=== PATIENT | female | born 1965 | race Caucasian/White ===

== ENCOUNTER → 2019-10-11 15:39 | Outpatient (CLI) | payer OTHER, SELFPAY ==
--- NOTE | 2019-10-11 15:48 | RAD_ITS ---
STUDY: X-RAY - RIGHT HAND, ATTENTION FIRST FINGER REASON FOR EXAM: Female, 53 years old. bilateral thumb pain, right more than left TECHNIQUE: 3 view(s) of the finger were obtained. COMPARISON: None. FINDINGS: Normal metacarpal head. Normal metacarpophalangeal joint. Normal proximal phalanx. Normal middle phalanx. Normal distal phalanx. Normal proximal interphalangeal joint. Normal distal interphalangeal joint. RAD/Finger(s) Min 2 Views IMPRESSION: Normal x-ray examination of the finger. Electronically Signed: Priyanka Jones MD at 16:17 EST , Service support ,
--- NOTE | 2019-10-11 15:48 | RAD_ITS ---
STUDY: X-RAY - LEFT HAND, ATTENTION FIRST FINGER REASON FOR EXAM: Female, 53 years old. bilateral thumb pain, right more than left TECHNIQUE: 3 view(s) of the finger were obtained. COMPARISON: None. FINDINGS: Normal metacarpal head. Normal metacarpophalangeal joint. Normal proximal phalanx. Normal middle phalanx. Normal distal phalanx. Normal proximal interphalangeal joint. Normal distal interphalangeal joint. RAD/Finger(s) Min 2 Views IMPRESSION: Normal x-ray examination of the finger. Electronically Signed: Priyanka Jones MD at 16:16 EST , Service support ,
== END ==
PROVIDERS: Family Provider Family Medicine; PCP Family Medicine; Referring Provider Family Medicine; Visit Provider Family Medicine
DX: M79.644 Pain in right finger(s) (principal); M79.645 Pain in left finger(s)
CPT/HCPCS: 73140

== ENCOUNTER → 2019-11-14 11:10 | Outpatient (CLI) | payer OTHER, SELFPAY ==
[2019-11-14 12:56] LABS: Erythrocyte Sedimentation Rate 3 mm/hr (0-30)
[2019-11-14 14:04] LABS: CRP < 2.90 mg/L (0.0-3.0); Rheumatoid Factor < 10.0 IU/mL (<15)
[2019-11-15 16:53] LABS: ANTINUCLEAR ANTIBODIES DIRECT Negative (Negative)
== END ==
PROVIDERS: PCP Family Medicine; Visit Provider Family Medicine
DX: M13.0 Polyarthritis, unspecified (principal)
CPT/HCPCS: 36415; 85652; 86038; 86140; 86431

== ENCOUNTER → 2019-11-17 13:27 | Outpatient (CLI) | payer OTHER, SELFPAY ==
--- NOTE | 2019-11-17 13:31 | RAD_ITS ---
STUDY: X-RAY - LEFT KNEE REASON FOR EXAM: Female, 54 years old. Bilateral knee pain TECHNIQUE: 4 view(s) of the knee. COMPARISON: None. FINDINGS: Normal visualized distal femur. Normal visualized proximal tibia and fibula. Normal proximal tibiofibular articulation. There is no demonstrated fracture. Normal medial femorotibial compartment. Normal lateral femorotibial compartment. Normal patellofemoral articulation. There is no demonstrated joint effusion. The soft tissue structures are unremarkable. RAD/Knee 4 or More Views IMPRESSION: Normal x-ray examination of the knee. Electronically Signed: Kaushik Llanes MD at 23:50 EST , Service support ,
--- NOTE | 2019-11-17 13:31 | RAD_ITS ---
STUDY: X-RAY - RIGHT KNEE REASON FOR EXAM: Female, 54 years old. Bilateral knee pain TECHNIQUE: 4 view(s) of the knee. COMPARISON: None. FINDINGS: Normal visualized distal femur. Normal visualized proximal tibia and fibula. Normal proximal tibiofibular articulation. There is mild degenerative arthrosis of the medial femorotibial compartment. Normal lateral femorotibial compartment. There is mild degenerative arthrosis of the patellofemoral articulation. There is slight lateral subluxation on the sunrise view. The soft tissue structures are unremarkable. RAD/Knee 4 or More Views IMPRESSION: Minimal degenerative change. No visualized fracture. Electronically Signed: Rosina Pérez MD at 18:06 EST Tel , Service support ,
== END ==
PROVIDERS: PCP Family Medicine; Referring Provider Family Medicine; Visit Provider Family Medicine
DX: M25.561 Pain in right knee (principal); M25.562 Pain in left knee
CPT/HCPCS: 73564

== ENCOUNTER → 2020-01-09 07:53 | Outpatient (CLI) | payer OTHER, SELFPAY ==
--- NOTE | 2020-01-09 07:54 | BI_ITS ---
MAMMOGRAPHY - BILATERAL SCREENING REASON FOR EXAM: Female, 54 years old. Routine annual screening examination. PERTINENT HISTORY: Non-contributory. TECHNIQUE: Digital bilateral breast andreas (3D mammographic acquisition) in the CC and MLO projections. 2-D mediolateral oblique (MLO) and craniocaudad (CC) views of both breasts were obtained. CAD: Full Field Digital Mammography with Computer Added Detection was performed. COMPARISON: Comparison is made with prior outside examination dated November 16, 2019. FINDINGS: Breast Composition: The breasts are almost entirely fatty. There are no dominant masses or suspicious calcifications. No other significant abnormalities are identified. There has been no significant change since the prior study. BI/SCREEN MAMM (CAD) W/ANDREAS BILAT IMPRESSION: Stable bilateral screening mammogram. Yearly follow-up mammogram recommended. (A) ASSESSMENT CATEGORY: BIRADS Category 1: Negative. A letter regarding these results will be sent to the patient by the facility within 30 days. Approximately 10% of breast cancers are not detected by mammography. A normal mammogram should not delay biopsy of a clinically suspicious abnormality. [id number] Electronically Signed: James Reynoso, at 14:26 EDT , Service support ,
== END ==
PROVIDERS: PCP Family Medicine; Referring Provider Nurse Practitioner Women's Health; Visit Provider Nurse Practitioner Women's Health
DX: Z12.31 Encounter for screening mammogram for malignant neoplasm of breast (principal)
CPT/HCPCS: 77063; 77067

== ENCOUNTER 2020-06-25 08:30 | Outpatient (RCR) | payer OTHER, SELFPAY ==
--- NOTE | 2020-06-25 08:21 | HP.PTEVAL_ITS ---
Patient's Visit Information MORENO VANESSA is a 54 year old F referred to Physical Therapy by Dr. Rory Larson MD with a diagnosis of R shoulder pain. Date of Evaluation: 02/16/20 Physical Therapist: Juan Leos DPT - Visit Plan Frequency: 2x /Week Duration: 4 Weeks Plan: Start with AAROM with cane, and scapular/RTC strengthening exericses. PT. desires to complete on own currently. I gave her exercises to complete. HEP with handout given today. Pt. to follow up in 2-3 weeks if needed. - Subjective Pt. is here today for her initial evaluation with R shoulder pain. Pt. reports having increaed pain for the last 3-4 years, but worse over the past few months. No mech of injury. Pt. denies N/T. 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 Increased pain with: reaching, lifting, reaching behind her back, lifting, and sleeping on her R side. Pt. has not had an xray or MRI at this point in time. Pt. is hopeful to reduce her pain in order to get back to all work and recreational activities without limitations. - Pain R shoulder Pain Intensity (Out of 10): 0 Pain Intensity Range: 0, 4 - Objective POSTURE: Pt. has FH posture. [place] rounded shoulders. PALPATION: Pt. has tenderness along subacromial space and slightly at deltoid. NEURO: Pt. has normal sensation and DTR of BUEs. ROM: L shoulder; PROM: full without mild increase NW with overhead motions, end range flexion and abducton. AROM: pt. has incrased pain with last 25% of flexion and abcution. Functional ER C2 increase NW, functional IR L4 increase NW. Full cervical ROM no pain. MMT: Pt. has 4/5 strength throughout R UE, but did have increased pain with abd/flexion, and ER. No pain with IR motion. 5/5 cervical iso without increase in symptoms. - Special Tests R Shoulder Lift Off Test - Subscapular Tear: Negative R Shoulder Drop Sign - IS Test: Negative R Shoulder Empty Can - SS: Positive R Shoulder Belly Press - SupScap: Negative R Shoulder Neer - Impingement: Positive R Shoulder Swann Alexsander - Impingement: Positive R Shoulder Biceps Load Test - Labrum: Negative R Shoulder Speeds Test - Labrum/Biceps: Positive - Goals Goal 1:: LTG: Pt. to be I with HEP. Goal Time Frame: 4-6 Weeks Goal 2:: STG: Pt. to sleep throughout the night without increase in symptoms. Goal Time Frame: 2-4 Weeks Goal 3:: STG: Pt. to be educated in proper HEP for RTC and shoulder stability exercises. Goal Time Frame: 2-4 Weeks Goal 4:: LTG: Pt. to complete all ADLs and overhead activities without increase in R shoulder pain. Goal Time Frame: 4-6 Weeks - Rehabilitation Potential Physical Therapy Diagnosis: PT. has signs and symptoms consistent with R shoulder pain. Pt. has increaed pain with active and strength testing of RTC this date. Pt. also has pain at night and pain with many ADLs and functional use of R UE. Pt. would benefit from PT to work on ROM and strengthening in order to reduce stress applied to RTC with all functional/ADL activities. Rehabilitation Potential: Good - Anticipated Interventions Patient/Client Instruction: Educate patient on: Condition, Plan of Care, Risk Factors, Benefits of Fitness Program For the Purpose of:: To facilitate caregiver knowledge, To improve self ma nagement, To prevent re-injury, To improve ability to perform tasks related to life management, To improve tolerance to ADL's Therapeutic Exercise to Include: Strength training, Power training, Postural training, Flexibilty training, via Neurocom Balance Mas, Active ROM, [place] Exercises, Scapular Strength/Stabilization For the Purpose of:: To decrease pain, To decrease swelling/inflammation, To increase ROM, To improve nutrient delivery to tissue, To increase oxygenation perfusion, To improve muscle performance and motor function, To improve ability of physical actions for home/community/work/leisure, To decrease soft tissue restriction, To increase flexibility/ROM IF ES: Yes Cryotherapy (ice pack, ice massage): Yes Ultrasound (thermal/non thermal): Yes For the Purpose of:: To decrease pain, To decrease swelling/inflammation, To increase ROM, To improve nutrient delivery to tissue, To increase oxygenation perfusion, To improve muscle performance and motor function Thank you for the opportunity to evaluate your patient. For Medicare and Medicare HMO plans, please review the plan of care and approve it. It will need to be FAXED BACK to us at [phone] for Medicare purposes. For Medicare only, by signing this I certify the plan of care. Please let me know if there are questions or concerns regarding this plan of care. Physician Signature: Date :
--- NOTE | 2020-06-25 11:29 | HP.PTREVAL ---
Dr. Rory Larson MD, It has been my pleasure to treat MORENO VANESSA over the last 2 visits for R shoulder pain. Please see the progress note below for an update on the physical therapy plan of care! Subjective: Pt. reports overall doing much better since last time. Pt. reports being consistent with all of her strengthening exercises. Pt. is now mostly worried about her end range flexion and external rotation. Objective/Function: Pt. tolerated all PT without adverse reaction. Pt. had improved ROM by end of PT. Pt. started with 170deg of shoulder flexion, and 70deg of R shoulder ER at 90deg of abd. Post PT pt. had 85deg of shoulder ER at 90deg with decreased symptoms. Pt. had good strength throughout without increase in symptoms 5/5 throughout, no pain. Pt. has made good progress. Pt. is still limited with her end rnage of motions, but I gave her some stretches to work on. Pt. is to follow up with PT if needed, but otherwise continue with stretching progressing as tolerated. Plan Plan: Pt. to add in stretching to HEP this date. Pt. to complete on own for 2-3 weeks and follow up with PT if needed. Pt. consents. Goals Goal 1:: LTG: Pt. to be I with HEP. Goal Time Frame: 4-6 Weeks Goal Progress: Goal Met Goal 2:: STG: Pt. to sleep throughout the night without increase in symptoms. Goal Time Frame: 2-4 Weeks Goal Progress: Goal Met Goal 3:: STG: Pt. to be educated in proper HEP for RTC and shoulder stability exercises. Goal Time Frame: 2-4 Weeks Goal Progress: Goal Met Goal 4:: LTG: Pt. to complete all ADLs and overhead activities without increase in R shoulder pain. Goal Time Frame: 4-6 Weeks Goal Progress: Progressing Anticipated Interventions Patient/Client Instruction: Educate patient on: Condition, Plan of Care, Risk Factors, Benefits of Fitness Program For the Purpose of:: To facilitate caregiver knowledge, To improve self management, To prevent re-injury, To improve ability to perform tasks related to life management, To improve tolerance to ADL's Therapeutic Exercise to Include: Strength training, Power training, Postural training, Flexibilty training, via Neurocom Balance Mas, Active ROM, [place] Exercises, Scapular Strength/Stabilization For the Purpose of:: To decrease pain, To decrease swelling/inflammation, To increase ROM, To improve nutrient delivery to tissue, To increase oxygenation perfusion, To improve muscle performance and motor function, To improve ability of physical actions for home/community/work/leisure, To decrease soft tissue restriction, To increase flexibility/ROM IF ES: Yes Cryotherapy (ice pack, ice massage): Yes Ultrasound (thermal/non thermal): Yes For the Purpose of:: To decrease pain, To decrease swelling/inflammation, To increase ROM, To improve nutrient delivery to tissue, To increase oxygenation perfusion, To improve muscle performance and motor function Please do not hesitate to contact me at [phone] by phone or if you have questions or concerns regarding this new plan of care! Sincerely, TREE MoserT
== END 2020-06-25 19:00 | disposition home or self-care (01) ==
LOC: PT 08:30
PROVIDERS: PCP Family Medicine; Referring Provider Family Medicine; Visit Provider Family Medicine
DX: M25.511 Pain in right shoulder (principal)
CPT/HCPCS: 97110; 97161; 97164

== ENCOUNTER → 2020-10-22 11:39 | Outpatient (CLI) | payer OTHER, SELFPAY ==
[2020-08-26 14:10] VITALS: BMI 28.0
--- NOTE | 2020-10-22 11:42 | RAD_ITS ---
STUDY: X-RAY - LUMBAR SPINE REASON FOR EXAM: Female, 55 years old. DDD. TECHNIQUE: 5 view(s) of the lumbar spine were obtained. COMPARISON: Thoracic spine, 10/22/2020. FINDINGS: There is reversal of the normal lumbar lordosis. There is a dextroscoliosis with convexity at L3. There is a normal alignment of the vertebrae. There is multilevel endplate spondylosis of the lumbar vertebrae. Normal disc space heights. There is no evidence of acute fracture or loss of vertebral axial height. There is no demonstrated spondylolysis of the pars interarticulares. The soft tissue structures are unremarkable. RAD/L/S Spine Min 4 Views IMPRESSION: Scoliosis and degenerative changes of the lumbar spine. Electronically Signed: Andrew Gao DO at 20:47 EST Tel [phone], Service support ,
--- NOTE | 2020-10-22 11:42 | RAD_ITS ---
STUDY: X-RAY - THORACIC SPINE REASON FOR EXAM: Female, 55 years old. DDD. TECHNIQUE: 2 view(s) of the thoracic spine were obtained. COMPARISON: None. FINDINGS: Normal kyphosis of the thoracic spine. There is no substantial scoliosis. Normal thoracic vertebrae and endplates. Normal disc space heights. There is no evidence of acute fracture or loss of vertebral axial height. The soft tissue structures are unremarkable. RAD/Thoracic Spine 2 Views IMPRESSION: Normal x-ray examination of the thoracic spine. Electronically Signed: Andrew Gao DO at 20:46 EST Tel [phone], Service support ,
== END ==
PROVIDERS: PCP Family Medicine; Referring Provider Family Medicine; Visit Provider Family Medicine
DX: F32.0 Major depressive disorder, single episode, mild (principal)
CPT/HCPCS: 72070; 72110

== ENCOUNTER 2021-10-07 12:06 | Outpatient (CLI) | payer OTHER, SELFPAY ==
--- NOTE | 2021-10-07 12:11 | RAD_ITS ---
STUDY: SCOLIOSIS SURVEY REASON FOR EXAM: Female, 55 years old. Low back pain. Scoliosis. TECHNIQUE: Frontal and lateral views of the thoracolumbar spine were obtained on 2 images. COMPARISON: 10/22/2020. FINDINGS: Normal vertebral morphology and preservation of disc space. 9 degree levoscoliosis of the lower thoracic spine. 26 degree dextroscoliosis of the mid lumbar spine with angulation at L2-L4. RAD/Scoliosis 2 or 3 views IMPRESSION: Thoracolumbar scoliosis as described. Electronically Signed: Christian Resendiz MD at 9:17 EST , Service support ,
[2021-10-07 15:12] LABS: Vitamin D,25 Hydroxy 43.4 ng/mL
[2021-10-07 15:29] LABS: ALB/GLOB Ratio 1.2 RATIO (0.9-2.4); AST(SGOT) 11 U/L (15-37); Alanine Aminotransfer ALT/SGPT 28 U/L (13-56); Alkaline Phosphatase 82 U/L (45-117); Anion Gap 7 (5-15); BUN 15 mg/dL (7-18); BUN/Creat Ratio 18.5 RATIO (10-20); Calcium,Total 8.7 mg/dL (8.5-10.1); Chloride 103 mmol/L (98-107); Creatinine, Serum 0.81 mg/dL (0.55-1.02); EST Glomerular Filtration Rate 77 mL/min (>60); Est Glom Filt Rate - Afr Amer 93 mL/min (>60); Globulin 3.2 g/dL (2.2-4.2); Glucose 74 mg/dL (74-106); Potassium 3.7 mmol/L (3.5-5.1); Protein, Total 7.2 g/dL (6.4-8.2); Sodium Level 139 mmol/L (136-145)
[2021-10-07 18:59] LABS: Amphetamine Urine VISTA NEGATIVE (<1000 ng/mL); Barbiturate Urine VISTA NEGATIVE (< 200 ng/mL); Benzodiazepine Urine VISTA NEGATIVE (< 200 ng/mL); Cocaine Urine VISTA NEGATIVE (< 300 ng/mL); Ecstacy Urine VISTA NEGATIVE (< 500 ng/mL); Methadone Urine VISTA NEGATIVE (< 300 ng/mL); PCP Urine VISTA NEGATIVE (< 25 ng/mL); THC Urine VISTA NEGATIVE (< 50 ng/mL); Vista UDS pH Range 6
== END 2021-10-07 23:59 | disposition short-term general hospital (02) ==
PROVIDERS: PCP Family Medicine; Referring Provider Family Medicine; Visit Provider Family Medicine
DX: M41.9 Scoliosis, unspecified (principal)
CPT/HCPCS: 72082; 80053; 80307; 82306; 84443

== ENCOUNTER → 2022-03-19 | Outpatient (CLI) | payer OTHER, SELFPAY ==
[2022-03-19 10:10] LABS: Vitamin D,25 Hydroxy 41.7 ng/mL
[2022-03-19 10:25] LABS: ALB/GLOB Ratio 1.1 RATIO (0.9-2.4); AST(SGOT) 15 U/L (15-37); Alanine Aminotransfer ALT/SGPT 23 U/L (13-56); Albumin, Serum 3.7 g/dL (3.2-5.0); Alkaline Phosphatase 63 U/L (45-117); Anion Gap 7 (5-15); BUN 15 mg/dL (7-18); BUN/Creat Ratio 17.1 RATIO (10-20); Calcium,Total 8.8 mg/dL (8.5-10.1); Chloride 106 mmol/L (98-107); Creatinine, Serum 0.88 mg/dL (0.55-1.02); EST Glomerular Filtration Rate 71 mL/min (>60); Est Glom Filt Rate - Afr Amer 85 mL/min (>60); Globulin 3.3 g/dL (2.2-4.2); Glucose 92 mg/dL (74-106); Sodium Level 139 mmol/L (136-145)
[2022-03-19 10:26] LABS: Cholesterol 170 mg/dL (200); High Density Lipoprotein 67 mg/dL; Thyroid Stim Hormone (TSH) 1.32 uIU/mL (0.358-3.74); Triglycerides 156 mg/dL; Very Low Density Lipoprotein 31 mg/dL (5-40)
== END | disposition home or self-care (01) ==
LOC: MTLAB 08:30
PROVIDERS: Obstetrics & Gynecology; PCP Family Medicine; Referring Provider Family Medicine; Visit Provider Family Medicine
DX: E55.9 Vitamin D deficiency, unspecified (principal); Z13.220 Encounter for screening for lipoid disorders; Z13.29 Encounter for screening for other suspected endocrine disorder
CPT/HCPCS: 36415; 80053; 80061; 82306; 84443

== ENCOUNTER → 2022-06-04 | Outpatient (CLI) | payer OTHER, SELFPAY ==
--- NOTE | 2022-06-04 16:04 | BI_ITS ---
MAMMOGRAPHY - BILATERAL SCREENING REASON FOR EXAM: Female, 56 years old. Routine annual screening examination. PERTINENT HISTORY: Non-contributory. TECHNIQUE: Digital bilateral breast andreas (3D mammographic acquisition) in the CC and MLO projections. 2-D mediolateral oblique (MLO) and craniocaudad (CC) views of both breasts were obtained. CAD: Full Field Digital Mammography with Computer Added Detection was performed. COMPARISON: Comparison is made with prior study dated 01/09/2020. FINDINGS: Breast Composition: The breasts are almost entirely fatty. There are no dominant masses or suspicious calcifications. Stable benign-appearing bilateral axillary lymph nodes. No other significant abnormalities are identified. There has been no significant change since the prior study. BI/SCRN MAMM (CAD)W/ANDREAS BILAT IMPRESSION: Stable bilateral screening mammogram. Yearly follow-up mammogram recommended. (A) ASSESSMENT CATEGORY: BIRADS Category 2: Benign. A letter regarding these results will be sent to the patient by the facility within 30 days. Approximately 10% of breast cancers are not detected by mammography. A normal mammogram should not delay biopsy of a clinically suspicious abnormality. [id number] Electronically Signed: James Reynoso MD at 8:25 EDT ,
== END | disposition home or self-care (01) ==
LOC: OPBI 16:04
PROVIDERS: PCP Family Medicine; Visit Provider Obstetrics & Gynecology
DX: Z12.31 Encounter for screening mammogram for malignant neoplasm of breast (principal)
CPT/HCPCS: 77063; 77067

== ENCOUNTER → 2022-06-30 | Outpatient (CLI) | payer OTHER, SELFPAY ==
--- NOTE | 2022-06-30 16:16 | MRI_ITS ---
STUDY: MRI LUMBAR SPINE WITHOUT CONTRAST REASON FOR EXAM: Female, 56 years old. Worsening lower back pain, bilateral sciatica, degenerative scoliosis TECHNIQUE: Standardized fat and water weighted pulse sequences were obtained in the sagittal and axial planes. COMPARISON: None FINDINGS: T12-L1: Mild disc bulge with no spinal canal or neural foraminal stenosis. There is straightening of the normal lumbar lordosis. Slight retrolisthesis of L2 on L3 and L3 on L4. Dextroscoliosis centered on L3-4. 8 mm leftward listhesis of L2 on L3. 8mm dextro listhesis of L4 on L5 Normal conus medullaris that terminates at the level of T12-L1. L1-2: Schmorl''s nodes. Mild disc bulge. No spinal canal or neural foraminal stenosis. L2-3: Endplate edema. Disc bulge. Normal bilateral facet joints. Mild right neural foraminal stenosis. No significant spinal canal stenosis. L3-4: Endplate edema. Disc height loss. Mild leftward uncovertebral hypertrophy, left facet arthrosis, and left neural foraminal stenosis. No spinal canal stenosis. L4-5: Normal endplates. Disc bulge. Mild facet arthrosis. No spinal canal or neural foraminal stenosis. L5-S1: Mixed endplate change. Disc height loss and uncovertebral hypertrophy. Normal bilateral facet joints. Normal central canal and bilateral lateral recesses. Normal bilateral intervertebral neural foramina. Normal visualized sacral ala. There is mild paraspinal muscular atrophy. MRI/Spine Lumbar (Routine) IMPRESSION: Degenerative change detailed above with mild multilevel neural foraminal stenosis. No spinal canal stenosis. Dextroscoliosis detailed above. Electronically Signed: Nasir Duran MD at 6:26 EDT ,
== END | disposition home or self-care (01) ==
LOC: MRI 16:15
PROVIDERS: PCP Family Medicine; Referring Provider Orthopaedic Surgery; Visit Provider Orthopaedic Surgery
DX: M54.16 Radiculopathy, lumbar region (principal)
CPT/HCPCS: 72148

== ENCOUNTER → 2022-07-16 | Outpatient (CLI) | payer OTHER, SELFPAY ==
[2022-07-16 18:04] LABS: ALB/GLOB Ratio 1.2 RATIO (0.9-2.4); AST(SGOT) 8 U/L (15-37); Alanine Aminotransfer ALT/SGPT 18 U/L (13-56); Alkaline Phosphatase 72 U/L (45-117); Anion Gap 4 (5-15); BUN 13 mg/dL (7-18); BUN/Creat Ratio 14.7 RATIO (10-20); Calcium,Total 9.5 mg/dL (8.5-10.1); Chloride 108 mmol/L (98-107); Creatinine, Serum 0.89 mg/dL (0.55-1.02); EST Glomerular Filtration Rate 69 mL/min (>60); Est Glom Filt Rate - Afr Amer 84 mL/min (>60); Globulin 3.2 g/dL (2.2-4.2); Glucose 91 mg/dL (74-106); Protein, Total 7.2 g/dL (6.4-8.2); Sodium Level 141 mmol/L (136-145)
[2022-07-16 18:28] LABS: Vitamin D,25 Hydroxy 52.3 ng/mL
== END | disposition home or self-care (01) ==
LOC: MFPLAB 16:02
PROVIDERS: PCP Family Medicine; Referring Provider Family Medicine; Visit Provider Family Medicine
DX: E55.9 Vitamin D deficiency, unspecified (principal)
CPT/HCPCS: 36415; 80053; 82306

== ENCOUNTER → 2022-09-10 | Outpatient (CLI) | payer OTHER, SELFPAY ==
[2022-09-10 15:25] LABS: Protein, Urine (Random) < 6.0 mg/dL (<11.9)
[2022-09-10 15:36] LABS: Vitamin B12 453 pg/mL (211-911)
[2022-09-10 15:39] LABS: Hemoglobin A1c 5.6 % (3.8-5.6)
[2022-09-10 16:02] LABS: ALB/GLOB Ratio 1.4 RATIO (0.9-2.4); AST(SGOT) 7 U/L (15-37); Alanine Aminotransfer ALT/SGPT 20 U/L (13-56); Albumin, Serum 3.8 g/dL (3.2-5.0); Alkaline Phosphatase 73 U/L (45-117); Anion Gap 7 (5-15); BUN 15 mg/dL (7-18); BUN/Creat Ratio 16.7 RATIO (10-20); CRP < 2.90 mg/L (0.0-3.0); Calcium,Total 9.2 mg/dL (8.5-10.1); Chloride 104 mmol/L (98-107); EST Glomerular Filtration Rate 68 mL/min (>60); Est Glom Filt Rate - Afr Amer 83 mL/min (>60); Globulin 2.7 g/dL (2.2-4.2); Glucose 96 mg/dL (74-106); Protein, Total 6.5 g/dL (6.4-8.2); Sodium Level 140 mmol/L (136-145)
[2022-09-10 16:07] LABS: Erythrocyte Sedimentation Rate < 1 mm/hr (0-30)
[2022-09-16 04:07] LABS: Albumin 3.9 g/dL (2.9-4.4); Alpha-1-Globulins 0.2 g/dL (0.0-0.4); Alpha-2-Globulins 0.6 g/dL (0.4-1.0); Gamma Globulin 0.8 g/dL (0.4-1.8); Immunoglobulin A 94 mg/dL (87-352); Immunoglobulin G 775 mg/dL (586-1602); Immunoglobulin M 66 mg/dL (26-217); PROEL- TOTAL PROTEIN 6.4 g/dL (6.0-8.5); PROELU- Albumin, Urine 17.6 % (.); PROELU- Alpha-1-Globulin,Ur 7.8 % (.); PROELU- Alpha-2-Globulin,Ur 17.3 % (.); PROELU- Beta Globulin, Ur 47.9 % (.); PROELU- Gamma Globulin, Ur 9.3 % (.)
[2022-09-16 11:20] LABS: Arsenic 7245 3 ug/L (0-9); Lead, Blood < 1.0 ug/dL (0.0-3.4); Mercury, Blood 85324 < 1.0 ug/L (0.0-14.9); VITAMIN B6 16.7 ug/L (3.4-65.2); Vitamin B1, Thiamine 238.4 nmol/L (66.5-200.0)
== END | disposition home or self-care (01) ==
LOC: MTLAB 11:47
PROVIDERS: PCP Family Medicine; Referring Provider Psychiatry & Neurology Neurology; Visit Provider Psychiatry & Neurology Neurology
DX: G62.9 Polyneuropathy, unspecified (principal)
CPT/HCPCS: 36415; 80053; 82175; 82607; 82784; 83036; 83655; 83825; 84156; 84165; 84166; 84207; 84425; 85652; 86140; 86334

== ENCOUNTER → 2022-09-24 | Outpatient (CLI) | payer OTHER, SELFPAY ==
[2022-09-24 11:48] LABS: Lyme Ab Screen Interpretation REF LAB
[2022-09-24 15:17] LABS: Absolute Lymphocyte Count 0.95 X10^3/uL (0.83-4.51); Absolute Neutrophil Count 4.3 X10^3/uL (2.0-7.7); Basophil# 0.05 X10^3/uL; Basophil% 0.8 % (0-1); Eosinophil# 0.34 X10^3/uL; Eosinophils% 5.7 % (0-5); Hematocrit 40.9 % (37-47); Hemoglobin 13.3 g/dL (12.0-15.0); Lymphocyte # 0.95 X10^3/ul (0.83-4.51); Mean Corp Hgb Conc 32.5 g/dL (32-36); Mean Corpuscular Hgb 31.1 pg (27.0-32.0); Mean Corpuscular Volume 95.8 fL (81-99); Mean Platelet Vol. 9.8 fl (6.2-12.0); Monocyte# 0.29 X10^3/uL; Monocyte% 4.9 % (0-10); NRBC Flagged by Analyzer 0 % (0-5); Neutrophil # 4.27 X10^3/uL (2.7-7.7); Neutrophil % 72.3 % (47-70); Platelet Count 247 K/mm3 (150-450); RBC Distribution Width CV 12.2 % (11.6-14.6); RBC Distribution Width SD 42.5 fl (35.1-43.9); Red Blood Count 4.27 M/mm3 (4.2-5.4); White Blood Count 5.9 K/mm3 (4.4-11.0)
[2022-09-24 16:24] LABS: Erythrocyte Sedimentation Rate 5 mm/hr (0-30)
[2022-09-26 19:36] LABS: Lyme Scn Total Ab w/Rflx Negative (Negative)
[2022-09-28 16:08] LABS: Anti-Centromere B Ab <0.2 AI (0.0-0.9); Anti-Chromatin <0.2 AI (0.0-0.9); Anti-Jo <0.2 AI (0.0-0.9); Anti-Scleroderma-70 AB <0.2 AI (0.0-0.9); RNP Ab <0.2 AI (0.0-0.9); SJOGREN'S Anti-SS-A test < 0.2 AI (0.0-0.9); SJOGREN'S Anti-SS-B test < 0.2 AI (0.0-0.9); Smith Ab <0.2 AI (0.0-0.9)
[2022-09-29 11:02] LABS: Anti-dsDNA Ab 4 IU/mL (0-9)
== END | disposition home or self-care (01) ==
LOC: BIMLAB 11:46
PROVIDERS: PCP Internal Medicine; Referring Provider Internal Medicine; Visit Provider Internal Medicine
DX: G62.9 Polyneuropathy, unspecified (principal)
CPT/HCPCS: 36415; 85025; 85652; 86225; 86235; 86618

== ENCOUNTER → 2022-10-23 | Outpatient (CLI) | payer OTHER, SELFPAY ==
--- NOTE | 2022-10-23 08:15 | EKG12_ITS ---
Test Reason : MEDICATION Blood Pressure : / mmHG Vent. Rate : 093 BPM Atrial Rate : 093 BPM P-R Int : 128 ms QRS Dur : 076 ms QT Int : 344 ms P-R-T Axes : 011 048 043 degrees QTc Int : 427 ms Normal sinus rhythm Normal ECG Confirmed by CHAVA ROJO, SUMEET ([id number]), production editor DANA LOBO ([id number]) on 10/26/2022 10:40:44 AM Referred By: FRIEDA Confirmed By:SUMEET LARSEN MD
== END | disposition home or self-care (01) ==
LOC: PSN 08:22
PROVIDERS: PCP Internal Medicine; Visit Provider Internal Medicine
DX: Z51.81 Encounter for therapeutic drug level monitoring (principal); Z79.899 Other long term (current) drug therapy
CPT/HCPCS: 93005

== ENCOUNTER → 2023-03-23 | Outpatient (CLI) | payer OTHER, SELFPAY ==
--- NOTE | 2023-03-23 08:55 | US_ITS ---
EXAM: Diagnostic bilateral breast mammogram and diagnostic left breast ultrasound REASON FOR EXAM: Female, 57 years old. Left breast lump felt by doctor 2 weeks prior at the 10:00 position. No palpable lump is felt today. PERTINENT HISTORY: Non-contributory. TECHNIQUE: Digital bilateral breast ariana (3D mammographic acquisition) in the CC and MLO projections. 2-D mediolateral oblique (MLO) and craniocaudad (CC) views of both breasts were obtained. CAD: Full Field Digital Mammography with Computer Added Detection was performed. Real-time garcia scale and color sonographic images were obtained of the left upper inner breast in the clinical area of concern COMPARISON: Screening mammogram from 06/04/2022, 01/09/2020. FINDINGS: Mammogram findings: Breast Composition: There are scattered areas of fibroglandular density. There are no dominant masses or suspicious calcifications. No other significant abnormalities are identified. Ultrasound was obtained of the left breast for palpable finding. Ultrasound findings: The left breast upper inner breast was assessed in the clinical area of concern from the 9:00 to 12:00 positions. No suspicious masses or abnormal fluid collections. US/Breast Limited Unilateral IMPRESSION: Negative diagnostic mammogram. No suspicious masses or abnormal fluid collections on ultrasound in the clinical area of concern. ASSESSMENT CATEGORY: BIRADS Category 2: Benign. A letter regarding these results will be sent to the patient by the facility within 30 days. Recommendation: Return to annual screening mammogram. If clinical concerns for enlarging mass or nipple discharge on physical exam, repeat diagnostic ultrasound and mammogram is recommended. Approximately 10% of breast cancers are not detected by mammography. A normal mammogram should not delay biopsy of a clinically suspicious abnormality. Electronically Signed: Sumeet Maza DO at 10:57 EDT ,
== END | disposition home or self-care (01) ==
PROVIDERS: PCP Internal Medicine; Referring Provider Obstetrics & Gynecology; Visit Provider Obstetrics & Gynecology
DX: N63.22 Unspecified lump in the left breast, upper inner quadrant (principal)
CPT/HCPCS: 76642; 77062; 77066; G0279

== ENCOUNTER → 2023-11-05 | Outpatient (CLI) | payer OTHER, SELFPAY ==
--- OUTSIDE RECORDS SUMMARY | 2023-11-05 17:47 | XMS RPT_ITS | CCD ---
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 Name Role Phone Unavailable Primary Care Provider ROBBY Elliott Attending Unavailable Allergies Allergy Classification Reported Allergen(s) Allergy Type Date of Onset Reaction(s) Facility (2 sources) Cat; Translations: [CATS] Propensity to adverse reactions 08-14-20 05 Swelling [facility] Work Phone: (2 sources) Dog; Translations: [DOGS] Propensity to adverse reactions 08-14-20 05 Swelling [facility] Work Phone: (2 sources) Sulfamethoxazole / Trimethoprim; Translations: [SULFAMETHOXAZOLE-TR IMETHOPRIM] Drug Allergy 05-01-20 08 Hives [facility] Work Phone: (1 source) hay fever [Other] Propensity to adverse reactions 08-14-20 05 Itching [facility] Work Phone: (2 sources) Horse Hair And Dander; Translations: [HORSE HAIR AND DANDER] Propensity to adverse reactions 08-14-20 05 Swelling [facility] Work Phone: (1 source) OTHER; Translations: [OTHER] Propensity to adverse reactions (disorder) 08-14-20 05 [facility] Repository Medications Completed/Discontinued Medications Medication Drug Class(es) Dates Sig (Normalized) Sig (Original) acetaminophen 325 mg / butalbital 50 mg / caffeine 40 mg oral tablet (1 source) Barbiturate, Central Nervous System Stimulant, Methylxanthine Start: 07-19-2015 take 1 tablet by mouth every four hours as needed acetaminophen 325 mg-caffeine 40 mg-butalbital 50 mg (FIORICET) per tablet Take 1 tablet by mouth every 4 hours as needed for Headache. 30 tablet 1 07/19/2015 Active Problems Active Problems Problem Classification Problem Date Documented Date Episodic/Chronic Genitourinary symptoms and ill-defined conditions (1 source) Female stress incontinence; Translations: [Stress incontinence (female) (male)] Onset: 08-15-2012 08-15-2012 Chronic Menstrual disorders (3 sources) Irregular periods; Translations: [Irregular menstruation, unspecified] Onset: 09-18-2009 09-18-2009 Chronic Osteoarthritis (1 source) Localized, primary osteoarthritis of the shoulder region; Translations: [Primary osteoarthritis, unspecified shoulder] Onset: 05-07-2006 09-23-2006 Chronic Other circulatory disease (1 source) Erythromelalgia; 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] Chronic Other connective tissue disease (1 source) 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; Translations: [Neuralgia and neuritis, unspecified] Episodic Other inflammatory condition of skin (1 source) Rosacea; Translations: [Rosacea, unspecified] Onset: 01-29-2012 01-29-2012 Chronic Other nervous system disorders (1 source) Right-sided piriformis syndrome; Translations: [Lesion of sciatic nerve, right lower limb] Onset: 10-15-2015 10-15-2015 Chronic Other non-traumatic joint disorders (1 source) Arthralgia of the pelvic region and thigh; Translations: [Pain in unspecified hip] 09-23-2006 Episodic Prolapse of female genital organs (3 sources) Midline cystocele; Translations: [Cystocele, midline] Onset: 09-18-2009 09-18-2009 Chronic Spondylosis; intervertebral disc disorders; other back problems (1 source) Degeneration of intervertebral disc; Translations: [Degeneration of intervertebral disc, site unspecified] Onset: 02-02-2006 09-23-2006 Chronic Spondylosis; intervertebral disc disorders; other back problems (1 source) Backache; Translations: [Dorsalgia, unspecified] 09-23-2006 Episodic Past or Other Problems Problem Classification Problem Date Documented Date Episodic/Chronic Other circulatory disease (1 source) Non-neoplastic nevus; Translations: [Nevus, non-neoplastic] Onset: 09-03-2008 09-03-2008 Episodic Other connective tissue disease (1 source) Enthesopathy of hip region; Translations: [Other specified enthesopathies of unspecified lower limb, excluding foot] Onset: 05-31-2012 05-31-2012 Episodic Other non-traumatic joint disorders (1 source) Hip pain; Translations: [Pain in unspecified hip] Onset: 05-31-2012 05-31-2012 Episodic Other skin disorders (1 source) Disorder of skin pigmentation; Translations: [Disorder of pigmentation, unspecified] Onset: 09-03-2008 10-29-2011 Episodic Results Test Name Value Interpretation Reference Range Facil ity Vital Signs Date Time Vital Sign Value Performing Clinician Rainer martin 03-05-2023 09:09-0400 Body weight 80.74 kg Robby Kilgore MD Work Phone: [facility] 03-05-2023 09:09-0400 Diastolic blood pressure 76 mm[Hg] Robby Kilgore MD Work Phone: [facility] 03-05-2023 09:09-0400 Heart rate 78 /min Robby Kilgore MD Work Phone: [facility] 03-05-2023 09:09-0400 Systolic blood pressure 110 mm[Hg] Robby Kilgore MD Work Phone: [facility] Encounters Encounter Date Encounter Type Care Provider Facility Start: 03-05-2023 End: 03-05-2023 ambulatory ROBBY KILGORE Facility:[facility] Start: 03-05-2023 End: 03-05-2023 Patient encounter procedure Robby Kilgore MD Work Phone: Vascular Medicine Procedures Date Procedure Procedure Detail Performing Clinician Start: 11-12-2014 Mammography Robby stark MD Work Phone: Start: 09-08-2006 Colonoscopy Robby stark MD Work Phone: Plan of Treatment Date Care Activity Detail Author Start: 03-05-2023 End: 05-05-2023 CBC panel - Blood by Automated count CBC Lab Routine Erythromelalgia (HCC) Expected: 03/05/2023, Expires: 05/05/2023 [facility] Work Phone: Immunizations Immunization Date Immunization Notes Care Provider Latia day 07-19-2015 influenza virus vaccine, unspecified formulation Robby Kilgore MD Work Phone: [facility] 07-10-2014 influenza, seasonal, injectable Robby Kilgore MD Work Phone: [facility] 07-24-2013 influenza virus vaccine, unspecified formulation Robby Kilgore MD Work Phone: [facility] Work Phone: 07-04-2012 influenza virus vaccine, unspecified formulation Robby Kilgore MD Work Phone: [facility] 03-05-2009 tetanus toxoid, reduced diphtheria toxoid, and acellular pertussis vaccine, adsorbed Robby Kilgore MD Work Phone: [facility] 08-18-2006 influenza virus vaccine, unspecified formulation Robby Kilgore MD Work Phone: [facility] Work Phone: 11-09-2005 measles, mumps and rubella virus vaccine Robby Kilgore MD Work Phone: [facility] 10-08-2005 measles, mumps and rubella virus vaccine Robby Kilgore MD Work Phone: [facility] 05-14-2003 hepatitis B vaccine, adult dosage Robby Kilgore MD Work Phone: [facility] Work Phone: 04-12-2003 diphtheria and tetan us toxoids, adsorbed for pediatric use Robby Kilgore MD Work Phone: [facility] Work Phone: 04-12-2003 hepatitis B vaccine, adult dosage Robby Kilgore MD Work Phone: [facility] Work Phone: Payers Date Payer Category Payer Unknown MMO [employer] [id number] 2022-Present [phone] [address] [id number] Social History Date Type Detail Facility [facility]: [facility]14-[facility] Start: 09-14-2011 Tobacco use and exposure Smokeless tobacco non-user [facility] Start: 05-20-2022 Alcohol intake Current drinke r of alcohol (finding) [facility] Start: 05-17-2012 [facility] Start: 1965 Sex Assigned At Female [facility] Progress note 03-01-2023 Note Date & Type Note Facility 03-01-2023 Note HNO ID: [id number] Author: Robby Kilgore MD Service: ? Author Type: Physician Type: Progress Notes Filed: 03/05/2023 12:34 PM Note Text: [facility] [place] [facility] Department of Cardiovascular Medicine SECTION OF VASCULAR MEDICINE OUTPATIENT VISIT DATE March 01, 2023 OUTPATIENT VISIT TYPE CONSULTATION Consult regarding: Erythromelalgia Consult requested by: My final recommendations will be communicated back to the requesting physician by way of the shared medical record or by letter. Primary care physician: No primary care provider on file. History of present illness: This is a 57 year old woman here to determine if she has Erythromelalgia. She has symptoms consistent with this condition. She has been seen by neurology and other subspecialties and has come to the conclusion she may have this disorder. She has been evaluated for and told she has a neuropathy but not sure if it is small or large fiber. She has a history of painful, burning, red hot feet. Her condition is aggravated by going outside in hot weather, alcohol, possibly spicy foods. It is relieved by cooling. She has erythema of the affected skin. She has increased temperature of the affected skin as well. She feels her condition started in or around October of 2021. At first she thought it might be her shoes and/or socks so she changed her shoes and socks. Later she thought it might be her back and saw a pain management doctor who did spinal injections. These did not help. She has also been seen by a neurologist who did not EMG and a number of blood tests. He did not know what erythromelalgia was and thus her visit today. She was told she had a neuropathy. Allergies: is allergic to cats, dogs, hay fever [other], horse hair and dander, and septra [sulfamethoxazole-trimethoprim]. Medications: gabapentin (NEURONTIN) 300 mg capsule Take 900 mg at bedtime and 300 mg in the morning daily venlafaxine (EFFEXOR) 75 mg tablet Take 2.5 tabs daily estradiol (ESTRACE) 1 mg tablet Take 1 tablet by mouth once daily. nitrofurantoin monohydrate and macrocrystal (MACROBID) 100 mg capsule Take one tablet after intercourse TAKE WITH FOOD clotrimazole-betamethasone (LOTRISONE) cream Apply 1 application to affected area twice daily. acetaminophen 325 mg-caffeine 40 mg-butalbital 50 mg (FIORICET) per tablet Take 1 tablet by mouth every 4 hours as needed for Headache. IBUPROFEN ORAL Take by mouth as needed. MULTIVITAMIN TAB Take one(1) tablet daily. 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 Alcohol use: rarely REVIEW OF SYSTEMS: Review of systems: General Fever or chills - No Night sweats - No Change in weight - No Lumps in groin, underarms - No Neurological Headaches - No Seizures - No Passing out - No Dizziness/light headedness - No Numbness, tingling, pins or needles - YES feet right greater than left Weakness in arms or legs - No Head, eyes, ears, nose and throat Changes in hearing - No Changes in vision - No Nose bleeds - No Difficulty or pain with swallowing - No Cardiovascular Chest pain or pressure - No Palpitations - No Irregular heartbeat - No Shortness of breath - No Respiratory Cough - No Wheezing - No Shortness of breath at rest - No Shortness of breath with exertion - No Coughing up blood - No Sleep apnea - No Gastrointestinal Abdominal pain - No Nausea/vomiting - No Diarrhea/Constipation - No Stomach pain after eating - No Blood in stool - No Black stool - No Genitourinary Pain with urination - No Blood in urine - No Gynecology - No Abnormal vaginal bleeding - No History of loss - No Extremity Bulging veins - No Swelling in arms or legs - Some Redness of extremities - YES Pain with walking - No Color change of hands/feet/digits - YES feet Musculoskeletal Joint pain - No Joint swelling - No Back pain - YES Muscle pain or ache - No Skin Rash - No Lesions - No Slow healing sores - No Tight or thickened skin - No Hematology Low blood counts - No Easy bruising - No Blood transfusions - No Psychology Depressed mood - YES Anxiety or history of panic attacks - YES History of recreational drug use - No Cancer screening (up to date?): Colonoscopy: YES Pap smear: N/A Mammogram: YES Smoking history: -Current or past smoker? No Physical exam: BP 110/76 Pulse 78 Wt 80.7 kg (178 lb) LMP 10/10/2007 BMI 25.54 kg/m? LMP 10/10/2007 General: Alert and oriented, in no acute distress, pleasant mood. Skin: Healthy, intact, no ulce (more content not included)... [facility] History of Present illness Narrative 03-01-2023 Robby Kilgore MD - 03/01/2023 11:15 AM EDT Note Date & Type Note Facility 03-01-2023 History of Presen t illness Narrative [facility] [place] [facility] Department of Cardiovascular Medicine SECTION OF VASCULAR MEDICINE OUTPATIENT VISIT DATE March 01, 2023 OUTPATIENT VISIT TYPE CONSULTATION Consult regarding: Erythromelalgia Consult requested by: My final recommendations will be communicated back to the requesting physician by way of the shared medical record or by letter. Primary care physician: No primary care provider on file. History of present illness: This is a 57 year old woman here to determine if she has Erythromelalgia. She has symptoms consistent with this condition. She has been seen by neurology and other subspecialties and has come to the conclusion she may have this disorder. She has been evaluated for and told she has a neuropathy but not sure if it is small or large fiber. She has a history of painful, burning, red hot feet. Her condition is aggravated by going outside in hot weather, alcohol, possibly spicy foods. It is relieved by cooling. She has erythema of the affected skin. She has increased temperature of the affected skin as well. She feels her condition started in or around October of 2021. At first she thought it might be her shoes and/or socks so she changed her shoes and socks. Later she thought it might be her back and saw a pain management doctor who did spinal injections. These did not help. She has also been seen by a neurologist who did not EMG and a number of blood tests. He did not know what erythromelalgia was and thus her visit today. She was told she had a neuropathy. Allergies: is allergic to cats, dogs, hay fever [other], horse hair and dander, and septra [sulfamethoxazole-trimethoprim]. Medications: gabapentin (NEURONTIN) 300 mg capsule Take 900 mg at bedtime and 300 mg in the morning daily venlafaxine (EFFEXOR) 75 mg tablet Take 2.5 tabs daily estradiol (ESTRACE) 1 mg tablet Take 1 tablet by mouth once daily. nitrofurantoin monohydrate and macrocrystal (MACROBID) 100 mg capsule Take one tablet after intercourse TAKE WITH FOOD clotrimazole-betamethasone (LOTRISONE) cream Apply 1 application to affected area twice daily. acetaminophen 325 mg-caffeine 40 mg-butalbital 50 mg (FIORICET) per tablet Take 1 tablet by mouth every 4 hours as needed for Headache. IBUPROFEN ORAL Take by mouth as needed. MULTIVITAMIN TAB Take one(1) tablet daily. 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 Alcohol use: rarely REVIEW OF SYSTEMS: Review of systems: General Fever or chills - No Night sweats - No Change in weight - No Lumps in groin, underarms - No Neurological Headaches - No Seizures - No Passing out - No Dizziness/light headedness - No Numbness, tingling, pins or needles - YES feet right greater than left Weakness in arms or legs - No Head, eyes, ears, nose and throat Changes in hearing - No Changes in vision - No Nose bleeds - No Difficulty or pain with swallowing - No Cardiovascular Chest pain or pressure - No Palpitations - No Irregular heartbeat - No Shortness of breath - No Respiratory Cough - No Wheezing - No Shortness of breath at rest - No Shortness of breath with exertion - No Coughing up blood - No Sleep apnea - No Gastrointestinal Abdominal pain - No Nausea/vomiting - No Diarrhea/Constipation - No Stomach pain after eating - No Blood in stool - No Black stool - No Genitourinary Pain with urination - No Blood in urine - No Gynecology - No Abnormal vaginal bleeding - No History of loss - No Extremity Bulging veins - No Swelling in arms or legs - Some Redness of extremities - YES Pain with walking - No Color change of hands/feet/digits - YES feet Musculoskeletal Joint pain - No Joint swelling - No Back pain - YES Muscle pain or ache - No Skin Rash - No Lesions - No Slow healing sores - No Tight or thickened skin - No Hematology Low blood counts - No Easy bruising - No Blood transfusions - No Psychology Depressed mood - YES Anxiety or history of panic attacks - YES History of recreational drug use - No Cancer screening (up to date?): Colonoscopy: YES Pap smear: N/A Mammogram: YES Smoking history: -Current or past smoker? No Physical exam: BP 110/76 Pulse 78 Wt 80.7 kg (178 lb) LMP 10/10/2007 BMI 25.54 kg/m LMP 10/10/2007 General: Alert and oriented, in no acute distress, pleasant mood. Skin: Healthy, intact, no ulcerations, no rashes. HEENT: Head normocephalic, extraocular muscles intact, sclera anicteric, nasal and oral mucosa moist and pink, neck supple, no JVD, no carotid bruit. Cardiovascular: Heart has a regular rate and rhythm without murmur. Respiratory: Lungs clear auscultation bilaterally. Gastrointestinal: Abdomen soft and nontender. No abdominal bruit or palpable mass. Musculoskeletal: has cyanosis of the hands and feet with dependency and pallor with elevation Peripheral vascular: Femoral, popliteal 2+ and equal Dorsalis pedis and posterior tibial pulses DP left 1+ 2+ right, posterior tibial pulses 2+ and equal Feet and toes warm pink and well perfused. 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 She has been seen by pain management and a neurologist and has a neuropathy (she is not sure if it is small or large fiber). She is on pregabalin and this seems to be helping some of her symptoms. We did discuss a trial of ketamine/amitriptyline topically and I will send her a prescription. I have ordered PVR's (decreased pulse left DP). I have ordered a CBC and MINH 2 mutation and explained to her why I ordered these tests. Recommendations: See me in follow up - [facility] with imaging studies. I will send her a Rx for the compound medication. All questions answered. Robby Kilgore MD documented in this encounter [facility] History of Past illness Narrative 05-31-2011 Note Date & Type Note Facility documented as of this encounter (statuses as of 03/05/2023) [facility] Evaluation note Note Date & Type Note Facility documented in this encounter [facility] Reason for referral (narrative) Outpatient Procedure (Routine) - Denied Note Date & Type Note Facility Referral ID Status Reason Start Date Expiration Date V isits Requested Visits Authorized [id number] Denied Auto-Generate d Referral 03/05/2023 03/04/2024 1 0 [facility] Summary Purpose Family History No Family History Records FoundNo Family History Records Found Advance Directives No Advanced Directives Records FoundNo Advanced Directives Records Found Additional Source Comments Source Comments (unrecognize d section and content) In the event this informatio n is protected by the Federal Confidentiality of Alcohol and Drug Abuse Patient Records regulations: The Federal rules restrict any use of the information to criminally investigate or prosecute any alcohol or drug abuse patient.[facility] Reason for Visit (unrecogniz ed section and content) Specialty Diagnoses / Procedures Referred By Roger t Referred To Contact Vascular Medicine / VASCULAR MEDICINE Diagnoses Erythromelalgia Procedures NEW/CON PATIENT Self Robby Kilgore MD [address] [place] [address] Referral ID Status Reason Start Date Expiration Date Visits Requested Visits Authorized [id number] Closed Financial Clearance Required - OON Payor OON Notification Letter Clearance Not Met -Financial Clearance Bypassed 03/05/2023 06/03/2023 1 1 INFORMATION SOURCE (unrecogn ized section and content) DATE CREATED AUTHOR AUTHOR'S ORGANIZ ATION 05/14/2023 [facility] FOR RECORDS PERTAINING TO PATIENTS WHO ARE OR HAVE BEEN ENROLLED IN A CHEMICAL DEPENDENCY/SUBSTANCEABUSE PROGRAM, SOME INFORMATION MAY BE OMITTED. This clinical summary was aggregated from multiple sources. Caution should be exercised in using it in the provision of clinical care. This summary normalizes information from multiple sources, and as a consequence, information in this document may materially change the coding, format and clinical context of patient data. In addition, data may be omitted in some cases. CLINICAL DECISIONS SHOULD BE BASED ON THE PRIMARY CLINICAL RECORDS. [employer] [facility]. provides no warranty or guarantee of the accuracy or completeness of information in this document.
== END | disposition home or self-care (01) ==
LOC: LABSPEC 15:07
PROVIDERS: PCP Internal Medicine; Referring Provider Nurse Practitioner; Visit Provider Nurse Practitioner
DX: Z11.52 Encounter for screening for COVID-19 (principal)
CPT/HCPCS: 87631

== ENCOUNTER 2023-11-11 17:00 | Outpatient (RCR) | payer OTHER, SELFPAY ==
--- NOTE | 2023-10-14 18:59 | HP.PTEVAL ---
Patient's Visit Information Visit Information Visit Information: MORENO VANESSA is a 57 year old F referred to Physical Therapy by Dr. Aileen Zelaya MD with a diagnosis of PAIN IN LEFT SHOULDER , CHRONIC PAIN,PAIN IN RIGHT HIP. Date of Evaluation: 10/14/23 Physical Therapist: Christian Wadsworth, PT, Cert MDT, OCS Visit Plan Frequency: 2x /Week Duration: 4 Weeks Plan: PT INTERVTIONS RTC/SCAPULAR STRENGTHENING ,POSTURAL EX'S , HIP STRENGTHENING ,FUNCTIONAL STRENGTHENING AND COR EX'S MODALTIES NEEDED FOR SHOULDEER Subjective Subjective: This 57 y/o female presents to physical therapy with left shoulder pain and right hip pain. Patient has had left shoulder pain since December 2022 working out and right hip pain many years. Patient has several diagnostics to include MRI in hip many years ago. Patient lateral hip deep. Aggravating factors walking 15mins any distances ,elevation from sit to standing from chair. Described as ache . Patient has no pain with bending or lifting. Alleviating factors rest and sitting. Patient has seen DR orthopedic . Patient has h/o scoliosis adult onset and h/o back pain with occasional right lateral hip below knee. Patient had aplasia Sep 2022 at [facility] Patient has coughing/sneezing - Patient has neuropathy in foot which patient has ENG testing myalgia in foot. Bowel/bladder-. Patient sleeping is affected by pain. Patient left shoulder pain lateral deltoid . Aggravating factors in shoulder lifting ,raising arm above 90 degrees ,reaching behind back. Alleviating factors. Patient had no diagnostics. Denies paresthesia/tingling in shoulder. Patient condition affects QOL and function/ADLS and job demands. 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 Right Hip: Pain Intensity (Out of 10): 8 Pain Intensity Range: N/A Left Shoulder: Pain Intensity (Out of 10): 8 Pain Intensity Range: 10 Objective Objective: POSTURE: mild forward posture rounded shoulders NEURO: c/o paresthesia right foot reflexes L3-4,L4-5,L5 -S1 2/3 SYTMMTRIES: right leg longer GAIT: reciprocal pattern PALAPATION: tender I -T BAND ,AC joint HIP ROM: WNL all planes no pain LUMBAR ROM: flexion WNL ,extension min loss , slides min loss MMT: ( peak force) bip flexion 36.7 ,hip abduction 25.6 ,quads/hams 4/5 ,ankle 4/5 AROM: shoulder flexion 130 degrees ,abduction 115 degrees pain, IR L1 ,ER 90 degrees PROM shoulder flexion 160 degrees abduction 155 degrees ER pain CERVICAL ROM: flexion min loss ,extension min loss and lateral flexion rotation min loss MMT: ( peak force) infraspinatus 5.6 pain ,supraspinatus 6.9,subscapularis 14.8 ,deltoid 5.7pain Special Tests C/S Radiculapathy - Left Upper limb tension test: Negative C/S Radiculapathy - Right Upper limb tension test: Negative C/S Radiculapathy - Left Spurlings: Negative C/S Radiculapathy - Right Spurlings: Negative C/S Radiculapathy - Left Cervical distraction: Negative C/S Radiculapathy - Right Cervical distraction: Negative C/S Radiculapathy - Left Relief test: Negative C/S Radiculapathy - Right Relief test: Negative C/S Radiculapathy - Valsalva: Negative Sharp Robel: Negative Vertebral Artery Test: Negative Alar Ligament Test: Negative R Hip Scour: Negative R Hip Quadrant - Intraarticular Pathology: Negative R Hip ABBE - Intraarticular Pathology: Negative R Hip FADDIR - Labrum: Negative R Hip Trendelenberg - Glut Medius: Negative R Hip Dequan - IT Band: Negative L Shoulder External Rotation Lag Test - RC Tear: Negative L Shoulder Supine Impingement Test - RC Tear: Positive L Shoulder Lift Off Test - Subscapular Tear: Negative L Shoulder Drop Sign - IS Test: Negative L Shoulder Empty Can - SS: Positive L Shoulder Belly Press - SupScap: Negative L Shoulder Neer - Impingement: Positive L Shoulder Swann Alexsander - Impingement: Positive L Shoulder Biceps Load Test - Labrum: Negative L Shoulder Yeargasons - SLAP: Negative L Shoulder Jerk Test - Posterior Inferior Labrum: Negative L Shoulder Sulcus Sign - Inferior Laxity: Negative Balance/Special Test Scores Lower Extremity Functional Score: 38 Goals Goal 1:: Patient to be I with HEP for hip and shoulder Goal Time Frame: 4-6 Weeks Goal 2:: Patient improve peak force of hip by 5-10 # to increase strength and function with gait Goal Time Frame: 4-6 Weeks Goal 3:: Patient to improve peak force RTC by 10-15 # to improve function and ADLS OH Goal Time Frame: 4-6 Weeks Goal 4:: Patient improve shoulder ROM 150 degrees for abduction and flexion to improve function with OH activities without pain. Goal Time Frame: 4-6 Weeks Goal 5:: Patient to improve walking > 30min with pain in hip Goal Time Frame: 4-6 Weeks Goal 6:: Patient to improve LFES score by 5 points or > to improve QOL and function Goal Time Frame: 4-6 Weeks Rehabilitation Potential Physical Therapy Diagnosis: This patient has right shoulder pain with RTC weakness with impingement along with hip weakness with h/o lumbar pain affecting right side leg with no significant findings of hip pathology rather hip weakness worse with walking and standing thus benefit from skilled PT Rehabilitation Potential: Good Anticipated Interventions Patient/Client Instruction: Educate patient on: Condition and Plan of Care For the Purpose of:: To decrease pain, To increase ROM, To improve muscle performance and motor function, To improve ability to perform ADL's, To increase tolerance to activity/condition/position, To improve ability of physical actions for home/community/work/leisure, To improve gait and locomotor functions, To improve health of tissue, To decrease soft tissue restriction, To increase flexibility/ROM, To improve endurance, To improve balance and To improve tolerance to ADL's Therapeutic Exercise to Include: Strength training, Balance training, Postural training and Dynamic Lumbar Stabilization Comment: RTC AND HIP STRENGTHENING For the Purpose of:: To decrease pain, To increase ROM, To improve muscle performance and motor function, To increase tolerance to activity/condition/position, To improve ability of physical actions for home/community/work/leisure, To improve health of tissue, To decrease soft tissue restriction, To increase flexibility/ROM, To improve endurance and To improve balance TENS: Yes IF ES: Yes Cryotherapy (ice pack, ice massage): Yes Thermo therapy (hot pack): Yes Ultrasound (thermal/non thermal): Yes For the Purpose of:: To decrease pain, To increase ROM, To improve health of tissue, To decrease soft tissue restriction, To increase flexibility/ROM and To improve tolerance to ADL's Text: Thank you for the opportunity to evaluate your patient. For Medicare and Medicare HMO plans, please review the plan of care and approve it. It will need to be FAXED BACK to us at [phone] for Medicare purposes. For Medicare only, by signing this I certify the plan of care. Please let me know if there are questions or concerns regarding this plan of care. Physician Signature: Date:
--- NOTE | 2024-01-17 12:48 | HP.PTDCSUM_ITS ---
Discharge Summary D/C summary: It has been my pleasure to treat MORENO VANESSA referred by Dr. Aileen Zelaya MD, with the diagnosis of PAIN IN LEFT SHOULDER , CHRONIC PAIN,PAIN IN RIGHT HIP for a total of 7 visit(s). Discharge Date: Please see the following information for a summary of their discharge status. Subjective Subjective: Seen Dr Allie for hip - OA and hip pathology Able to get up from chair no pain Patient shoulder getting stronger Pain Right Hip: Pain Intensity (Out of 10): 0 Left Shoulder: Pain Intensity (Out of 10): 0 Overall Improvement % Improvement: 50 Objective Objective/Function: POSTURE: mild forward posture rounded shoulders NEURO: c/o paresthesia right foot reflexes L3-4,L4-5,L5 -S1 2/3 SYTMMTRIES: right leg longer GAIT: reciprocal pattern PALAPATION: tender I -T BAND ,AC joint HIP ROM: WNL all planes no pain LUMBAR ROM: flexion WNL ,extension min loss , slides min loss MMT: ( peak force) bip flexion 41.7 ,hip abduction 30.6 ,quads/hams 4/5 ,ankle 4/5 AROM: shoulder flexion 150 degrees ,abduction 150 degrees pain, IR L1 ,ER 90 degrees PROM shoulder flexion 160 degrees abduction 155 degrees ER pain MMT: ( peak force) infraspinatus 15.6 pain ,supraspinatus 16.,subscapularis 17.8 ,deltoid 18.3 Goals Goal 1:: Patient to be I with HEP for hip and shoulder Goal Progress: Goal Met Goal 2:: Patient improve peak force of hip by 5-10 # to increase strength and function with gait Goal Progress: Goal Met Goal 3:: Patient to improve peak force RTC by 10-15 # to improve function and ADLS [place] Goal Progress: Goal Met Goal 4:: Patient improve shoulder ROM 150 degrees for abduction and flexion to i mprove function with OH activities without pain. Goal Progress: Goal Met Goal 5:: Patient to improve walking > 30min with pain in hip Goal 6:: Patient to improve LFES score by 5 points or > to improve QOL and function Goal Progress: Goal Met Plan Plan: D/C D/C Information d/c sentence: If there are questions or concerns regarding this patient's physical therapy, please feel free to call me at [phone]. Thank you for the referral of this patient. Sincerely, Christian Wadsworth, PT, Cert MDT, OCS Balance/Gait/Functional tests Balance/Special Test Scores Lower Extremity Functional Score: 64 Improvement % Improvement: 50
== END 2023-11-11 19:00 | disposition home or self-care (01) ==
LOC: PT 17:00
PROVIDERS: PCP Internal Medicine; Visit Provider Internal Medicine
DX: M25.512 Pain in left shoulder (principal); M25.551 Pain in right hip; G89.29 Other chronic pain
CPT/HCPCS: 97110; 97161; 97530

== ENCOUNTER → 2023-12-08 | Outpatient (CLI) | payer OTHER, SELFPAY ==
[2023-12-08 11:09] LABS: Absolute Lymphocyte Count 1.22 X10^3/uL (0.83-4.51); Absolute Neutrophil Count 4.2 X10^3/uL (2.0-7.7); Basophil# 0.08 X10^3/uL; Basophil% 1.3 % (0-1); Eosinophil# 0.23 X10^3/uL; Eosinophils% 3.8 % (0-5); Hematocrit 39.7 % (37-47); Hemoglobin 13.1 g/dL (12.0-15.0); Lymphocyte # 1.22 X10^3/ul (0.83-4.51); Mean Corpuscular Hgb 30.8 pg (27.0-32.0); Mean Corpuscular Volume 93.2 fL (81-99); Monocyte% 4.9 % (0-10); NRBC Flagged by Analyzer 0 % (0-5); Neutrophil # 4.24 X10^3/uL (2.7-7.7); Neutrophil % 69.7 % (47-70); Platelet Count 228 K/mm3 (150-450); RBC Distribution Width CV 12.5 % (11.6-14.6); RBC Distribution Width SD 42.5 fl (35.1-43.9); Red Blood Count 4.26 M/mm3 (4.2-5.4); White Blood Count 6.1 K/mm3 (4.4-11.0)
[2023-12-08 11:37] LABS: ALB/GLOB Ratio 1.2 RATIO (0.9-2.4); AST(SGOT) 9 U/L (15-37); Alanine Aminotransfer ALT/SGPT 16 U/L (13-56); Albumin, Serum 3.6 g/dL (3.2-5.0); Alkaline Phosphatase 65 U/L (45-117); Anion Gap 4 (5-15); BUN 12 mg/dL (7-18); BUN/Creat Ratio 12.4 RATIO (10-20); Calcium,Total 8.9 mg/dL (8.5-10.1); Chloride 110 mmol/L (98-107); Cholesterol 185 mg/dL (200); Creatinine, Serum 0.96 mg/dL (0.55-1.02); EST Glomerular Filtration Rate 63 mL/min (>60); Est Glom Filt Rate - Afr Amer 76 mL/min (>60); Glucose 102 mg/dL (74-106); High Density Lipoprotein 69 mg/dL; Protein, Total 6.6 g/dL (6.4-8.2); Sodium Level 140 mmol/L (136-145); Thyroid Stim Hormone (TSH) 1.29 uIU/mL (0.358-3.74); Triglycerides 99 mg/dL; Very Low Density Lipoprotein 20 mg/dL (5-40)
== END | disposition home or self-care (01) ==
PROVIDERS: PCP Internal Medicine; Referring Provider Internal Medicine; Visit Provider Internal Medicine
DX: I73.81 Erythromelalgia (principal); G62.9 Polyneuropathy, unspecified; J45.20 Mild intermittent asthma, uncomplicated; F32.A Depression, unspecified; Z13.6 Encounter for screening for cardiovascular disorders
CPT/HCPCS: 36415; 80053; 80061; 84443; 85025

== ENCOUNTER → 2024-05-26 | Outpatient (CLI) | payer OTHER, SELFPAY ==
[2024-05-26 15:11] LABS: Absolute Lymphocyte Count 1.28 X10^3/uL (0.83-4.51); Basophil# 0.07 X10^3/uL; Eosinophil# 0.17 X10^3/uL; Eosinophils% 2.4 % (0-5); Hematocrit 40.2 % (37-47); Hemoglobin 13.4 g/dL (12.0-15.0); Lymphocyte # 1.28 X10^3/ul (0.83-4.51); Lymphocyte % 18.1 % (19-41); Mean Corp Hgb Conc 33.3 g/dL (32-36); Mean Corpuscular Hgb 31.2 pg (27.0-32.0); Mean Corpuscular Volume 93.7 fL (81-99); Mean Platelet Vol. 8.8 fl (6.2-12.0); Monocyte% 7.1 % (0-10); NRBC Flagged by Analyzer 0 % (0-5); Neutrophil # 5.04 X10^3/uL (2.7-7.7); Neutrophil % 71.1 % (47-70); Platelet Count 279 K/mm3 (150-450); RBC Distribution Width CV 12.1 % (11.6-14.6); RBC Distribution Width SD 41.9 fl (35.1-43.9); Red Blood Count 4.29 M/mm3 (4.2-5.4); White Blood Count 7.1 K/mm3 (4.4-11.0)
[2024-05-26 15:33] LABS: ALB/GLOB Ratio 1.1 RATIO (0.9-2.4); AST(SGOT) 9 U/L (15-37); Alanine Aminotransfer ALT/SGPT 16 U/L (13-56); Albumin, Serum 3.7 g/dL (3.2-5.0); Alkaline Phosphatase 77 U/L (45-117); Anion Gap 6 (5-15); BUN 9 mg/dL (7-18); BUN/Creat Ratio 11.5 RATIO (10-20); Calcium,Total 8.9 mg/dL (8.5-10.1); Chloride 104 mmol/L (98-107); Creatinine, Serum 0.78 mg/dL (0.55-1.02); EST Glomerular Filtration Rate 80 mL/min (>60); Est Glom Filt Rate - Afr Amer 96 mL/min (>60); Globulin 3.3 g/dL (2.2-4.2); Glucose 91 mg/dL (74-106); Potassium 3.8 mmol/L (3.5-5.1); Sodium Level 137 mmol/L (136-145)
== END | disposition home or self-care (01) ==
LOC: BIMLAB 14:21
PROVIDERS: PCP Internal Medicine; Referring Provider Nurse Practitioner; Visit Provider Nurse Practitioner
DX: R19.7 Diarrhea, unspecified (principal)
CPT/HCPCS: 36415; 80053; 85025

== ENCOUNTER → 2024-05-27 | Outpatient (CLI) | payer OTHER, SELFPAY ==
[2024-05-30 20:08] LABS: Calprotectin, Stool 1110 ug/g (0-120)
== END | disposition home or self-care (01) ==
LOC: LABSPEC 13:34
PROVIDERS: PCP Internal Medicine; Visit Provider Nurse Practitioner
DX: K58.9 Irritable bowel syndrome, unspecified (principal); R19.7 Diarrhea, unspecified
CPT/HCPCS: 82274; 83630; 83993; 87493; 87506

== ENCOUNTER → 2024-07-13 | Outpatient (CLI) | payer OTHER, SELFPAY ==
--- NOTE | 2024-07-13 13:53 | BI_ITS ---
MAMMOGRAPHY - BILATERAL SCREENING REASON FOR EXAM: Female, 58 years old. Routine annual screening examination. PERTINENT HISTORY: Non-contributory. TECHNIQUE: Digital bilateral breast andreas (3D mammographic acquisition) in the CC and MLO projections. 2-D mediolateral oblique (MLO) and craniocaudad (CC) views of both breasts were obtained. CAD: Full Field Digital Mammography with Computer Added Detection was performed. COMPARISON: Comparison is made with prior study dated March 23, 2023 and June 04, 2022. FINDINGS: Breast Composition: The breasts are almost entirely fatty. There are no dominant masses or suspicious calcifications. No other significant abnormalities are identified. There has been no significant change since the prior study. BI/SCRN MAMM (CAD)W/ANDREAS BILAT IMPRESSION: Stable bilateral screening mammogram. Yearly follow-up mammogram recommended. (A) ASSESSMENT CATEGORY: BIRADS Category 1: Negative. A letter regarding these results will be sent to the patient by the facility within 30 days. Approximately 10% of breast cancers are not detected by mammography. A normal mammogram should not delay biopsy of a clinically suspicious abnormality. [id number] Electronically Signed: James Reynoso MD at 15:14 EDT ,
== END | disposition home or self-care (01) ==
LOC: OPBI 13:53
PROVIDERS: PCP Internal Medicine; Referring Provider Nurse Practitioner; Visit Provider Nurse Practitioner
DX: Z12.31 Encounter for screening mammogram for malignant neoplasm of breast (principal)
CPT/HCPCS: 77063; 77067

== ENCOUNTER 2024-07-24 07:41 | Day surgery (SDC) | payer OTHER, SELFPAY ==
--- NOTE | 2024-07-24 | COLBX_PTH ---
PATHOLOGY RESULTS PATIENT: MORENO VANESSA LOC: EN U#:[id number] AGE/SX: 58/F ROOM: RE07/24/[address]: Dr. Fatemeh Urbina MD : 1965 BED: DIS: 07/24/2024 SPEC #: [id number] RECD: 07/24/24 13:12 STATUS: CONSUELO REQ #: [id number] NAGI: 07/24/24 00:[address]: Fatemeh Urbina DEPT: SURGICAL PATHOLOGY RECD BY: Ghanshyam Darling ENTERED: 07/24/24 13:13 SP TYPE: COLON BX OTHR DR: Dr. Aileen Zelaya MD Tissues: COLON BIOPSY Rectum, NOS Procedures: Trichrome (control) Special Stain Group I Surgery Specimen Level IV HEADER OPERATION: Colonoscopy with biopsy, polypectomy PRE-OP DIAGNOSIS: Diarrhea TISSUE SUBMITTED: A- Random colon biopsy, B- Rectal polyp biopsy MICROSCOPIC DIAGNOSIS A. Colon, random biopsy: Fragments of colonic mucosa with changes consistent with lymphocytic (microscopic) and collagenous colitis. See comment. B. Rectal polyp, biopsy: Fragments of hyperplastic polyp. 07/25/2024 COMMENT A. Trichrome stain with matched control is used in the evaluation of the specimen and shows focal thickening of subepithelial collagen band. Case has been reviewed in consultation with Dr. Clayton who concurs with the above diagnosis. IDC:AM MICROSCOPIC DESCRIPTION Slides are reviewed. GROSS DESCRIPTION A. Received in fixative is one container labeled with the patient's name and designated Random colon biopsy. The specimen consists of multiple irregular fragments of light stone soft tissue that in aggregate measure 1.0 x 0.6 x 0.1 cm. The specimen is totally submitted in one cassette. B. Received in fixative is one container labeled with the patient's name and designated Rectal polyp biopsy. The specimen consists of multiple irregular fragments of light stone soft tissue that in aggregate measure 0.8 x 0.3 x 0.1 cm. The specimen is totally submitted in one cassette. 07/24/2024 TC:3 CPT:43399f0 ,[id number]
--- OUTSIDE RECORDS SUMMARY | 2024-07-24 07:44 | XMS RPT_ITS | CCD ---
Author Organization [facility] ion [facility] Care Team Providers Care Vice President Industrial Relations Name Role Phone Unavailable Primary Care Provider Unavaildread Zelaya MD, Jill Del Toro Primary Care Provider Unava niles Zelaya MD, Jill Del Toro Primary Care Provider [phone] DOC ESTRADA Referring Unavailable DOC ESTRADA Attending Unavailable JILL ZELAYA Primary Care Unavailable JILL ZELAYA Primary Care Unavailable DOC ESTRADA Referring Unavailable DOC ESTRADA Attending Unavailable ROBBY KILGORE Referring Unavailable JILL ZELAYA Primary Care Unavailable Allergies Allergy Classification Reported Allergen(s) Allergy Type Date of Onset Reaction(s) Facility (2 sources) Cat; Translations: [CATS] Propensity to adverse reactions 08-14-20 05 Swelling [facility] Work Phone: (2 sources) Dog; Translations: [DOGS] Propensity to adverse reactions 08-14-20 05 Swelling [facility] Work Phone: (2 sources) Sulfamethoxazole / Trimethoprim; Translations: [SULFAMETHOXAZOLE-TR IMETHOPRIM] Drug Allergy 05-01-20 08 [facility] Work Phone: (1 source) hay fever [Other] Propensity to adverse reactions 08-14-20 05 Itching [facility] Work Phone: (2 sources) Horse Hair And Dander; Translations: [HORSE HAIR AND DANDER] Propensity to adverse reactions 08-14-20 05 Swelling [facility] Work Phone: (3 sources) Ciprofloxacin; Translations: [CIPROFLOXACIN] Drug Allergy 12-09-19 24 [facility] Work Phone: (3 sources) Seasonal allergy; Translations: [SEASONAL ALLERGIES] Allergy to substance 12-09-19 24 Itching [facility] (1 source) OTHER; Translations: [OTHER] Propensity to adverse reactions (disorder) 08-14-20 05 [facility] Medications Current Medications Medication Drug Class(es) Dates Sig (Normalized) Sig (Original) baclofen 10 mg oral tablet (3 sources) gamma-Aminobutyric Acid-ergic Agonist baclofen (LIORESAL) 10 mg tablet Take 1 tablet by mouth as needed. 0 Active Comment on above: Take 1 tablet by lucinda th as needed. 24 hr buPROPion hydrochloride 300 mg extended release oral tablet (3 sources) Aminoketone take 1 tablet by mouth once daily buPROPion XL (WELLBUTRIN XL) 300 mg 24 hr tablet Take 1 tablet by mouth once daily. 0 Active Comment on above: Take 1 tablet by lucinda th once daily. cephalexin 250 mg oral capsule (3 sources) Cephalosporin Antibacterial Start: 01-13-2023 cephALEXin (KEFLEX) 250 mg capsule TAKE 1 CAPSULE BY MOUTH AFTER INTERCOURSE 0 01/13/2023 Active Comment on above: TAKE 1 CAPSULE BY MO UTH AFTER INTERCOURSE cetirizine hydrochloride 10 mg oral capsule (2 sources) Histamine-1 Receptor Antagonist Start: 12-09-2023 take 1 capsule by mouth once daily Cetirizine (ZYRTEC) 10 mg cap Take 1 capsule by mouth once daily. 0 12/09/2023 Active Comment on above: Take 1 capsule by mo uth once daily. cholecalciferol 0.125 mg oral tablet (3 sources) Vitamin D Start: 09-24-2022 take 1 tablet by mouth once daily cholecalciferol (VITAMIN D3) 5,000 unit tab Take 5,000 Units by mouth once daily. 0 09/24/2022 Active Comment on above: Take 5,000 Units by mouth once daily. estradiol 1 mg oral tablet (3 sources) Estrogen Start: 09-14-2016 take 1 tablet by mouth once daily estradiol (ESTRACE) 1 mg tablet Take 1 tablet by mouth once daily. 90 tablet 4 09/14/2016 Active Comment on above: Take 1 tablet by lucinda th once daily. MULTIVITAMIN TAB (3 sources) Start: 08-06-2005 MULTIVITAMIN TAB Take one(1) tablet daily. 0 08/06/2005 Active Comment on above: Take one(1) tablet d aily. pregabalin 100 mg oral capsule (3 sources) take 1 capsule by mouth twice daily in the evening pregabalin (LYRICA) 100 mg capsule Take 1 capsule by mouth two times a day. 100mg in AM and 150mg in PM 0 Active Comment on above: Take 1 capsule by mo uth twice daily. Take 1 capsule by mo uth two times a day. 100mg in AM and 150mg in PM Completed/Discontinued Medications Medication Drug Class(es) Dates Sig (Normalized) Sig (Original) acetaminophen 325 mg / butalbital 50 mg / caffeine 40 mg oral tablet (2 sources) Barbiturate, Central Nervous System Stimulant, Methylxanthine Start: 07-19-2015 End: 12-09-2023 take 1 tablet by mouth every four hours as needed acetaminophen 325 mg-caffeine 40 mg-butalbital 50 mg (FIORICET) per tablet Take 1 tablet by mouth every 4 hours as needed for Headache. 30 tablet 1 07/19/2015 12/09/2023 Discontinued (Course of therapy completed) Comment on above: Take 1 tablet by lucinda th every 4 hours as needed for Headache. ascorbic acid/vitamin E/biotin (HAIR, SKIN, NAILS WITH BIOTIN ORAL) (2 sources) End: 12-09-2023 take 1 capsule by mouth once daily ascorbic acid/vitamin E/biotin (HAIR, SKIN, NAILS WITH BIOTIN ORAL) Take 1 capsule by mouth once daily. 0 12/09/2023 Discontinued (Course of therapy completed) take 1 capsule by mouth once jabari ly ascorbic acid/vitamin E/biotin (HAIR, SKIN, NAILS WITH BIOTIN ORAL) Take 1 capsule by mouth once daily. 0 Active Comment on above: Take 1 capsule by mo uth once daily. aspirin 325 mg oral tablet (2 sources) Platelet Aggregation Inhibitor, Nonsteroidal Anti-inflammatory Drug Start: 12-09-19 24 End: 03-30-20 24 take 1 tablet by mouth once daily aspirin 325 mg tablet Take 1 tablet by mouth once daily. 0 12/09/2023 03/30/2024 Discontinued Comment on above: Take 1 tablet by lucinda th once daily. betamethasone 0.5 mg/ml / clotrimazole 10 mg/ml topical cream (2 sources) Azole Antifungal, Corticosteroid Start: 09-12-20 15 End: 12-09-19 24 clotrimazole-betamet hasone (LOTRISONE) cream Apply 1 application to affected area twice daily. 30 g 1 09/12/2015 12/09/2023 Discontinued (Course of therapy completed) Comment on above: Apply 1 application to affected area twice daily. calcium ascorbate 500 mg oral tablet (2 sources) Start: 09-24-20 End: 12-09-19 24 take 1 tablet by mouth once daily Ascorbate Calcium 500 mg tab Take 1 tablet by mouth once daily. 0 09/24/2022 12/09/2023 Discontinued (Course of therapy completed) Comment on above: Take 1 tablet by lucinda th once daily. gabapentin 300 mg oral capsule (1 source) Anti-epileptic Agent Start: 09-15-20 16 End: 03-05-20 23 gabapentin (NEURONTIN) 300 mg capsule Take 900 mg at bedtime and 300 mg in the morning daily 360 capsule 3 09/15/2016 03/05/2023 Discontinued (Course of therapy completed) Comment on above: Take 900 mg at bedti me and 300 mg in the morning daily Ibuprofen (3 sources) Nonsteroidal Anti-inflammatory Drug End: 03-30-20 24 IBUPROFEN ORAL Take by mouth as needed. 0 03/30/2024 Discontinued IBUPROFEN ORAL T jonathan by mouth as needed. 0 Active Comment on above: Take by mouth as nee ded. nitrofurantoin, macrocrystals 25 mg / nitrofurantoin, monohydrate 75 mg oral capsule (1 source) Nitrofuran Antibacterial Start: 12-12-2015 End: 03-05-2023 nitrofurantoin monohydrate and macrocrystal (MACROBID) 100 mg capsule Take one tablet after intercourse TAKE WITH FOOD 30 capsule 1 12/12/2015 03/05/2023 Discontinued (Course of therapy completed) Comment on above: Take one tablet afte r intercourse TAKE WITH FOOD venlafaxine 75 mg oral tablet (1 source) Serotonin and Norepinephrine Reuptake Inhibitor Start: 09-14-2016 End:
[2024-07-24 07:57] VITALS: BP 107/66; PULSE 102; RESP 16; TEMP 36.9; O2SAT 100; BMI 29.2
--- NOTE | 2024-07-24 07:58 | PCM.PRE.AN2 ---
ASA Classification* ASA Classification ASA Classification: 2 Assessment & Plan Anesthesia* Anesthesia Assessment Anesthesia Assessment: Discussed sedation and/or anesthesia options, risks, benefits, and alternatives with patient/parents/legal guardian/POA. Questions invited. The patient/parents/legal guardian/POA seems to understand and agrees to proceed with anesthesia plan. Reviewed the physical assessment, medical history, allergy history and patient home medications list prior to surgery/procedure/anesthetic and documented any changes. Performed airway and anesthesia risk assessments. Anesthesia Type Anesthesia Type: MAC (see written pre anesthesia record for full assessment) Anesthesia Focused Assessment* Airway Assessment Mouth opens: >3 cm Mallampati Score: II Focused Labs Anesthesia Preop lab: CBC WBC 7.1 K/mm3 (4.4-11.0) 05/26/24 14:21 RBC 4.29 M/mm3 (4.2-5.4) 05/26/24 14:21 Hgb 13.4 g/dL (12.0-15.0) 05/26/24 14:21 Hct 40.2 % (37-47) 05/26/24 14:21 Plt Count 279 K/mm3 (150-450) 05/26/24 14:21 CHEMISTRY Potassium 3.8 mmol/L (3.5-5.1) 05/26/24 14:21 Sodium 137 mmol/L (136-145) 05/26/24 14:21 BUN 9 mg/dL (7-18) 05/26/24 14:21 Creatinine 0.78 mg/dL (0.55-1.02) 05/26/24 14:21 Glucose 91 mg/dL (74-106) 05/26/24 14:21 TSH 1.29 uIU/mL (0.358-3.74) 12/08/23 10:55 COAG Pre-Assessment Diagnosis/Proposed Procedure Planned Operative Procedure(s): CSCOPE Anesthesia History Anesthesia History - meter record clerk: Anesthesia History - meter record clerk Hx Hospitalization No 07/20/24 10:50 Any Problems With Anesthesia No 07/20/24 10:50 Cholinesterase deficiency No 07/20/24 10:50 You/Your Family Experience No 07/20/24 10:50 fever (hyperthermia) with Relationship Recent Exposure to Contagious Disease Does patient have nerve No 07/20/24 10:50 stimulator Patient instructed to have device shut off --Does patient have Pacemaker or ICD? When Was Last Pacemaker Check QUESTION #4 FULL TEXT: You/Your Family Experience fever (hyperthermia) with Anesthesia Last Oral Intake Last Oral intake: Last Oral Intake NPO since Meds taken in AM with sips of water? Meds patient instructed to take am of surgery PONV PONV - meter record clerk: PONV - meter record clerk Female Yes 07/20/24 10:50 HX of Motion Sickness No 07/20/24 10:50 HX of N/V After Surgery No 07/20/24 10:50 Non-Smoker Yes 07/20/24 10:50 Duration of Surgery greater No 07/20/24 10:50 than 60 minutes Number of Risk Factors 2 07/20/24 10:50 PONV Score Moderate Risk 07/20/24 10:50 Height & Weight Height & Weight: Anesthesia: Height & Weight Height 5 ft 9 in 06/01/24 10:14 Respiratory Assessment Respiratory Assessment - meter record clerk: Respiratory Tract Infection Hx - meter record clerk Hx Respiratory Tract Infection No 07/20/24 10:50 STOP Sleep Apnea STOP Sleep Apnea - meter record clerk: STOP Sleep Apnea - meter record clerk Hx Hypertension No 07/20/24 10:50 Hx Sleep Apnea No 07/20/24 10:50 CPAP BIPAP Do you snore loudly (louder No 07/20/24 10:50 than talking or can be heard Do you often feel tired/ No 07/20/24 10:50 fatigued/ sleepy during daytime? Has anyone observed you stop No 07/20/24 10:50 breathing during sleep? STOP Results Negative 07/20/24 10:50 QUESTION #5 FULL TEXT : Do you snore loudly (louder than talking or can be heard through closed doors)? Tobacco Use History Tobacco Use History - meter record clerk: Tobacco Use History - meter record clerk Tobacco Use Smoking Status Never smoker 07/20/24 10:50 Hx Tobacco Use No 07/20/24 10:50 Years Smoking Packs Smoked per Day Smoking Cessation Date was within the last 15 years Hx Smoking Cessation Date Hx Smoking Cessation Counseling Hematologic Medial History Hematologic Hx - meter record clerk: Hematologic Medical Hx - scalp treatment specialist Hx of Blood Transfusion Yes 07/20/24 10:50 Hx of Transfusion in last 3 No 07/20/24 10:50 Months Date of Last Transfusion (if within last 3 months) Ever experience any problems No 07/20/24 10:50 with transfusion(s)? Specify any problems Hx of Preganancy in last 3 No 07/20/24 10:50 Months Nurse Filling Out Transfusion DSCHRIBER 07/20/24 10:50 & Questions: Date: 07/20/24 07/20/24 10:50 Time: 10:51 07/20/24 10:50 Patient unable to answer at this time (ie. confused, unrespo /Reproduction History /Reproductive History - meter record clerk: /Reproductive Hx- meter record clerk Hx Now No 07/20/24 10:50 Gestational Age (in weeks): EDC: Hx Hx Para Hx Section SAB No 07/20/24 10:50 [facility] Medical History Wears glasses History of steroid therapy Back pain Non-smoker Colitis Leg cramps History of pain when walking History of edema Acute diarrhea Neuropathy of right foot Peripheral neuropathy Erythromelalgia Scoliosis Asthma Degenerative disc disease Depression Home Medications ?Medication ?Instructions ?Recorded ?Last Taken ?Type multivitamin 1 tab PO DAILY 06/17/22 Unknown History ascorbate calcium (vitamin C) 500 500 mg PO DAILY 09/24/22 Unknown History mg tablet calcium carbonate (Calcium 600) 600 mg PO DAILY 09/24/22 Unknown History cholecalciferol (vitamin D3) 125 125 mcg PO DAILY 09/24/22 Unknown History mcg (5,000 unit) tablet flaxseed oil 1,000 mg capsule 1,000 mg PO DAILY 09/24/22 Unknown History budesonide-formoterol HFA 160 2 puff inhalation .Q4-6 PRN 11/05/23 Unknown Rx mcg-4.5 mcg/actuation aerosol shortness of breath or wheezing inhaler (Symbicort) #10.2 grams estradiol 1 mg tablet (Estrace) 1 mg PO DAILY #90 tabs 01/13/24 Unknown Rx duloxetine 60 mg capsule,delayed 60 mg PO QHS #30 caps 04/18/24 Unknown Rx release bupropion HCl 150 mg 24 hr tablet, 150 mg PO QAM #90 tabs 05/09/24 Unknown Rx extended release fluoxetine 10 mg capsule (Prozac) 10 mg PO DAILY #30 caps 06/13/24 Unknown Rx baclofen 10 mg tablet 10 mg PO QDAY PRN muscle spasm 07/20/24 Unknown History topiramate 25 mg tablet (Topamax) 25 mg PO BID PRN WEIGHT LOSS 07/20/24 Unknown History Allergy/AdvReac Type Severity Reaction Status Date / Time Sulfa (Sulfonamide Allergy Mild rash Verified 07/20/24 10:47 Antibiotics) Family History Other Adopted Surgical History (Updated 07/20/24 @ 11:00 by Kim Saunders) Hx of colonoscopy History of surgical procedure H/O tubal ligation S/P laparoscopic assisted vaginal hysterectomy (LAVH) delivery delivered Social History adopted: Yes household members: spouse current occupational status: employed current occupation: [employer] Smoking Status: Never smoker Electronic Cigarette Use: not used alcohol intake: current alcohol intake frequency: holidays/special occasions only details: social substance use type: does not use caffeine: Yes what type of physical activity do you participate in: none seatbelt use: always do you feel safe at home: Yes additional social history: [place]- Review of Systems (Anesthesia) ROS Narrative System reviewed and no additional complaints, except as documented.
--- NOTE | 2024-07-24 08:12 | H&P.OPEN ---
HPI - General General Date of Service: 07/24/24 HPI Narrative MORENO VANESSA, is a 58 F who presents for colonoscopy due to diarrhea. Patient was treated with budesonide and did have good success and resolution of the diarrhea. Again patient last colonoscopy was in 2018 [place] negative per patient. Plan to do random biopsies as well. Otherwise patient denies any changes. office visit 06/01/24 [facility] HPI: 58-year-old female presents due to diarrhea for about the last 3.5 weeks after taking milk of magnesia. Patient has had stool studies which showed positive leuk esterase, pathogens negative and patient went on a brat diet and also stopped her meloxicam about 1.5 weeks ago with no success. Patient has a history of collagenous colitis about 10 years ago. Patient last colonoscopy was in [place] 2018 negative per patient. Patient was recently started on budesonide states she has occasional cramping but states it is improved with the budesonide and also currently she has no diarrhea. Patient has 10-day course of the budesonide. Patient states she has occasional GERD. Does take Gas-X when needed which helps. Patient states prior to this diarrhea she has had chronic constipation all of her life which Benefiber has helped however there are certain foods that cause a lot of bloating she is unable to tolerate this also includes MiraLAX, oatmeal, Indonesian yogurt, cottage cheese, eggs. Patient have some recent left lower quadrant pain that has resolved. [facility] Medical History Wears glasses History of steroid therapy Back pain Non-smoker Colitis Leg cramps History of pain when walking History of edema Acute diarrhea Neuropathy of right foot Peripheral neuropathy Erythromelalgia Scoliosis Asthma Degenerative disc disease Depression Home Medications ?Medication ?Instructions ?Recorded ?Last Taken ?Type multivitamin 1 tab PO DAILY 06/17/22 Unknown History ascorbate calcium (vitamin C) 500 500 mg PO DAILY 09/24/22 Unknown History mg tablet calcium carbonate (Calcium 600) 600 mg PO DAILY 09/24/22 Unknown History cholecalciferol (vitamin D3) 125 125 mcg PO DAILY 09/24/22 Unknown History mcg (5,000 unit) tablet flaxseed oil 1,000 mg capsule 1,000 mg PO DAILY 09/24/22 Unknown History budesonide-formoterol HFA 160 2 puff inhalation .Q4-6 PRN 11/05/23 Unknown Rx mcg-4.5 mcg/actuation aerosol shortness of breath or wheezing inhaler (Symbicort) #10.2 grams estradiol 1 mg tablet (Estrace) 1 mg PO DAILY #90 tabs 01/13/24 Unknown Rx duloxetine 60 mg capsule,delayed 60 mg PO QHS #30 caps 04/18/24 Unknown Rx release bupropion HCl 150 mg 24 hr tablet, 150 mg PO QAM #90 tabs 05/09/24 Unknown Rx extended release fluoxetine 10 mg capsule (Prozac) 10 mg PO DAILY #30 caps 06/13/24 Unknown Rx baclofen 10 mg tablet 10 mg PO QDAY PRN muscle spasm 07/20/24 Unknown History topiramate 25 mg tablet (Topamax) 25 mg PO BID PRN WEIGHT LOSS 07/20/24 Unknown History Allergy/AdvReac Type Severity Reaction Status Date / Time Sulfa (Sulfonamide Allergy Mild rash Verified 07/24/24 08:02 Antibiotics) Family History Other Adopted Surgical History (Updated 07/20/24 @ 11:00 by Kim Saunders) Hx of colonoscopy History of surgical procedure H/O tubal ligation S/P laparoscopic assisted vaginal hysterectomy (LAVH) delivery delivered Social History adopted: Yes household members: spouse current occupational status: employed current occupation: [employer] Smoking Status: Never smoker Electronic Cigarette Use: not used alcohol intake: current alcohol intake frequency: holidays/special occasions only details: social substance use type: does not use caffeine: Yes what type of physical activity do you participate in: none seatbelt use: always do you feel safe at home: Yes additional social history: [place]o- Past Medical/Surgical History Planned Operation Planned Operative Procedure(s): CSCOPE Previous Hospitalizations/Surgeries HX Hospitalizations: No Any Problems With Anesthesia: No You/Your Family Experience Fever (Hyperthermia) With Anes: No Cholinesterase deficiency: No Cardiovascular Hx Chest Pain within Last 2 months: No Hx of Irregular Heartbeat and/or Afib: No Hx Heart Attack: No Hx Congestive Heart Failure: No Hx Hypertension: No Hx Internal Defibrillator: No Hx Pacemaker: No Respiratory Hx Chronic Obstructive Pulmonary Disease (COPD): No Hx Asthma: Yes Hx Emphysema: No Hx Sleep Apnea: No Hx Respiratory Tract Infection/Cold (presently): No Do You Snore Loudly (louder than talking or can be heard): No Do You Often Feel Tired/ Fatigued/ Sleepy Dring Daytime?: No Has Anyone Observed You Stop Breathing During Sleep?: No Result (for STOP score): Negative Hx Smoking: No Smoking Status: Never smoker Gastrointestinal Hx Ulcer: No Neurological Hx Seizures: No Hx Multiple Sclerosis: No Hx Parkinson's Disease: No Hx Head/Neck Injury: No Hx Headaches: No Hx Back Injury/Pain: Yes Does patient have nerve stimulator: No Blood Disorder Hx Anemia: No Reproduction : No Genitourinary Hx Dialysis: No Musculoskeletal Hx Arthritis: Yes Hx Rheumatoid Arthritis: No Endocrine Hx Diabetes: No Thyroid Disease: No Psycho/Social Hx Anxiety: No Hx Depression: No Hx Dementia: No Miscellaneous Hx Cancer: No Recent Exposure to Contagious Disease: No Allergies Sulfa (Sulfonamide Antibiotics) Allergy (Mild, Verified 07/24/24 08:02) rash Discharge Is Pt Admitted From a Senior Living, or a Snf: No After D/C, Where Do you Plan to Go: Return Home Vital Signs Vital Signs Vital Signs: 07/24/24 07:57 07/24/24 07:57 Temperature 98.5 F Temperature Source Temporal Pulse Rate 102 H Respiratory Rate 16 Respiratory Pattern Normal Blood Pressure 107/66 Blood Pressure Mean 79 Blood Pressure Source Monitor Blood Pressure Position Sitting Blood Pressure Location Right Arm Pulse Ox 100 Oxygen Delivery Method Room Air Weight Weight: 198 lb 6.656 oz Body Mass Index (BMI) 29.2 Physical Exam Const alert, oriented x3 and no apparent distress HEENT normocephalic and head/scalp atraumatic Resp normal respiratory effort Cardio regular rate GI soft to palpation and non-tender; Negative for non-distended Palpation: Negative for guarding Extremity no clubbing, cyanosis or edema Skin no rashes or lesions noted Neuro CN's II-XII intact bilaterally Psych mental status grossly normal Assessment & Plan Assessment/Plan (1) Acute diarrhea: Surgery Risks - Colonoscopy I discussed with the patient the risks of the procedure: Yes Risks Include but are not Limited To: Risks include but are not limited to: Bleeding, perforation requiring further surgery, inability to complete colonoscopy requiring barium enema.
--- NOTE | 2024-07-24 09:59 | PCM.POST.ANE ---
Anesthesia: Postop Eval I Current Vital Signs Temperature: 97 F Pulse Rate: 69 Blood Pressure: 90/62 Respiratory Rate: 16 Pulse Ox: 99 Oxygen Delivery Method: Room Air Assessment Airway patent: Yes Spontaneous unlabored respirations: Yes Mental status: Awake and Calm nausea: No Vomiting: No Anesthesia Complication: No Fluid Hydration Crystalloid volume administer (ml): 20 Total IV fluid infused: 20 Progress Note Anesthesia document: Postop Eval 1 completed: Yes
[2024-07-24 10:00] VITALS: BP 90/62; PULSE 69; RESP 16; TEMP 36.1; O2SAT 99
--- NOTE | 2024-07-24 10:00 | POSTOPAN2_ITS ---
Anesthesia Postop Eval I Sum Postop Eval Completion status Anesthesia document: Postop Eval 1 completed: Yes Anesthesia Postop Eval I Summary Anesthesia Postop Eval I Summary: Anesthesia Postop Eval I: Assessment Summary Airway patent Yes 07/24/24 10:00 ROUTE [email or web address] Spontaneous unlabored Yes 07/24/24 10:00 ROUTE [email or web address].MDOT respirations Mental status Awake,Calm 07/24/24 10:00 ROUTE [email or web address].MDOT nausea No 07/24/24 10:00 ROUTE [email or web address].MDOT Vomiting No 07/24/24 10:00 ROUTE [email or web address].MDOT Anesthesia Postop Eval I: Fluid Summary Crystalloid volume administer 20 07/24/24 10:00 ROUTE [email or web address].MDOT (ml) Colloids volume administered ( ml) Blood Product volume administered (ml) Total IV fluid infused 20 07/24/24 10:00 ROUTE [email or web address] Anesthesia Postop Eval I: Summary Notes Anesthesia Complication No 07/24/24 10:00 ROUTE [email or web address].[email or web address] Anesthesia Complication Comment: Post-operative progress note Anesthesia: Postop Eval II Evaluation Mental status: Awake and Calm Pain Level: 0 nausea: No Vomiting: No Complications Anesthesia Complication: No
--- NOTE | 2024-07-24 10:00 | PCM.POSTANE2 ---
Anesthesia Postop Eval I Sum Postop Eval Completion status Anesthesia document: Postop Eval 1 completed: Yes Anesthesia Postop Eval I Summary Anesthesia Postop Eval I Summary: Anesthesia Postop Eval I: Assessment Summary Airway patent Yes 07/24/24 10:00 [email or web address] Spontaneous unlabored Yes 07/24/24 10:00 [email or web address] respirations Mental status Awake,Calm 07/24/24 10:00 [email or web address] nausea No 07/24/24 10:00 POMPOM [email or web address] Vomiting No 07/24/24 10:00 [email or web address] Anesthesia Postop Eval I: Fluid Summary Crystalloid volume administer 20 07/24/24 10:00 [email or web address] (ml) Colloids volume administered ( ml) Blood Product volume administered (ml) Total IV fluid infused 20 07/24/24 10:00 POMPOM [email or web address] Anesthesia Postop Eval I: Summary Notes Anesthesia Complication No 07/24/24 10:00 [email or web address] Anesthesia Complication Comment: Post-operative progress note Anesthesia: Postop Eval II Evaluation Mental status: Awake and Calm Pain Level: 0 nausea: No Vomiting: No Complications Anesthesia Complication: No
[2024-07-24 10:03] VITALS: BP 107/66; BP 95/54; PULSE 74; RESP 16; TEMP 36.2; O2SAT 97
[2024-07-24 10:10] VITALS: BP 107/66; BP 97/61; PULSE 70; RESP 16; O2SAT 100
[2024-07-24 10:17] VITALS: BP 102/59; BP 107/66; PULSE 70; RESP 16; TEMP 36.9; O2SAT 100
[2024-07-24 10:37] VITALS: BP 107/66
--- NOTE | 2024-07-24 15:27 | OP.CCLET_ITS ---
07/24/2024 Aileen Zelaya Md Re : Colonoscopy procedure for Nighat Mcfarlane Dear Nathalie This procedure was performed on Wednesday, July 24, 2024. My impressions and recommendations are as follows: Impressions : - One less than 5 mm polyp in the rectum, removed with a cold biopsy forceps. Resected and retrieved. - The examination was otherwise normal on direct and retroflexion views. - Diverticulosis in the sigmoid colon. - Three random biopsies were obtained in the rectum, in the sigmoid colon and in the transverse colon. Recommendations : - Discharge patient to home. - Resume previous diet. - Continue present medications. - Await pathology results. - Repeat colonoscopy in 5-10 years for surveillance based on pathology results. My findings are described in the full procedure note, which is enclosed. If I can be of further assistance, please feel free to contact me at Doctor phone number(s): , Work: . Sincerely, MD Fatemeh Wilcox MD 07/24/2024 10:01:08 AM This report has been signed electronically.
--- NOTE | 2024-07-24 15:27 | OP.COLON_ITS ---
Patient Name: Nighat Mcfarlane Procedure Date: 07/24/2024 9:27 AM Date of : 1965 Age: 58 Procedure: Colonoscopy Indications: Clinically significant diarrhea of unexplained origin Providers: Fatemeh Urbina MD Medicines: Monitored Anesthesia Care Patient Profile: This is a 58 year old female. Last Colonoscopy: 2019. Complications: No immediate complications. Procedure: Pre-Anesthesia Assessment: - Prior to the procedure, a History and Physical was performed, and patient medications and allergies were reviewed. The patient's tolerance of previous anesthesia was also reviewed. The risks and benefits of the procedure and the sedation options and risks were discussed with the patient. All questions were answered, and informed consent was obtained. Prior Anticoagulants: The patient has taken no anticoagulant or antiplatelet agents. ASA Grade Assessment: Per anesthesia. After reviewing the risks and benefits, the patient was deemed in satisfactory condition to undergo the procedure. After I obtained informed consent, the scope was passed under direct vision. Throughout the procedure, the patient's blood pressure, pulse, and oxygen saturations were monitored continuously. The pediatric colonoscope was introduced through the anus and advanced to the cecum, identified by the ileocecal valve. The colonoscopy was performed without difficulty. The patient tolerated the procedure well. The quality of the bowel preparation was good. Scope In: 9:33:00 AM Scope Withdrawal Time 0 hours 9 minutes 20 seconds Scope Out: 9:55:40 AM Total Procedure Duration Time 0 hours 22 minutes 40 seconds Findings: The perianal and digital rectal examinations were normal. A less than 5 mm polyp was found in the rectum. The polyp was sessile. The polyp was removed with a cold biopsy forceps. Resection and retrieval were complete. Three random biopsies were obtained with cold forceps for histology in the rectum, in the sigmoid colon and in the transverse colon. The exam was otherwise without abnormality on direct and retroflexion views. A few small-mouthed diverticula were found in the sigmoid colon. Impression: - One less than 5 mm polyp in the rectum, removed with a cold biopsy forceps. Resected and retrieved. - The examination was otherwise normal on direct and retroflexion views. - Diverticulosis in the sigmoid colon. - Three random biopsies were obtained in the rectum, in the sigmoid colon and in the transverse colon. Recommendation: - Discharge patient to home. - Resume previous diet. - Continue present medications. - Await pathology results. - Repeat colonoscopy in 5-10 years for surveillance based on pathology results. Procedure Code(s): --- Professional --- 17669, Colonoscopy, flexible; with biopsy, single or multiple Diagnosis Code(s): --- Professional --- D12.8, Benign neoplasm of rectum R19.7, Diarrhea, unspecified K57.30, Diverticulosis of large intestine without perforation or abscess without bleeding CPT copyright 2021 [employer]. All rights reserved. The codes documented in this report are preliminary and upon data modeler review may be revised to meet current compliance requirements. MD Fatemeh Wilcox MD 07/24/2024 10:01:08 AM This report has been signed electronically. Number of Addenda: 0 Note Initiated On: 07/24/2024 9:27 AM
== END 2024-07-24 10:41 | disposition home or self-care (01) ==
LOC: EN 07:42 → AC 07:43
PROVIDERS: PCP Internal Medicine; Referring Provider Internal Medicine; Visit Provider Surgery
PROC: 0DJD8ZZ Inspection of Lower Intestinal Tract, Via Natural or Artificial Opening Endoscopic (ICD-10-PCS; CPT 45378; principal; 2024-07-24 08:55)
DX: K62.1 Rectal polyp (principal); K57.30 Diverticulosis of large intestine without perforation or abscess without bleeding; R19.7 Diarrhea, unspecified; K21.9 Gastro-esophageal reflux disease without esophagitis; E66.3 Overweight; G62.9 Polyneuropathy, unspecified; F32.A Depression, unspecified; M41.9 Scoliosis, unspecified; M19.90 Unspecified osteoarthritis, unspecified site; J45.20 Mild intermittent asthma, uncomplicated; Z88.2 Allergy status to sulfonamides; Z68.27 Body mass index [BMI] 27.0-27.9, adult; Z87.19 Personal history of other diseases of the digestive system; Z79.899 Other long term (current) drug therapy
CPT/HCPCS: 45380; 88305; 88312; A4216

== ENCOUNTER → 2024-08-15 | Outpatient (CLI) | payer OTHER, SELFPAY ==
[2024-08-15 09:40] LABS: Erythrocyte Sedimentation Rate 1 mm/hr (0-30)
[2024-08-15 09:41] LABS: Hematocrit 40.8 % (37-47); Hemoglobin 13.4 g/dL (12.0-15.0); Mean Corp Hgb Conc 32.8 g/dL (32-36); Mean Corpuscular Hgb 31.2 pg (27.0-32.0); Mean Corpuscular Volume 95.1 fL (81-99); Platelet Count 323 K/mm3 (150-450); RBC Distribution Width CV 12.7 % (11.6-14.6); RBC Distribution Width SD 44.4 fl (35.1-43.9); Red Blood Count 4.29 M/mm3 (4.2-5.4); White Blood Count 7.4 K/mm3 (4.4-11.0)
[2024-08-15 09:50] LABS: Vitamin B12 448 pg/mL (211-911)
[2024-08-15 10:05] LABS: Hemoglobin A1c 5.4 % (3.8-5.6)
[2024-08-15 11:10] LABS: ALB/GLOB Ratio 1.2 RATIO (0.9-2.4); AST(SGOT) 14 U/L (15-37); Alanine Aminotransfer ALT/SGPT 19 U/L (13-56); Albumin, Serum 3.8 g/dL (3.2-5.0); Alkaline Phosphatase 72 U/L (45-117); Anion Gap 6 (5-15); BUN 13 mg/dL (7-18); BUN/Creat Ratio 14.1 RATIO (10-20); Chloride 106 mmol/L (98-107); Creatinine, Serum 0.92 mg/dL (0.55-1.02); EST Glomerular Filtration Rate 66 mL/min (>60); Est Glom Filt Rate - Afr Amer 80 mL/min (>60); Globulin 3.3 g/dL (2.2-4.2); Glucose 98 mg/dL (74-106); Magnesium 2.3 mg/dL (1.6-2.6); Potassium 4.2 mmol/L (3.5-5.1); Protein, Total 7.1 g/dL (6.4-8.2); Sodium Level 137 mmol/L (136-145)
[2024-08-16 15:09] LABS: ANTINUCLEAR ANTIBODIES DIRECT Negative (Negative)
[2024-08-18 21:07] LABS: Free Kappa Light Chains 15.1 mg/L (3.3-19.4); Free Lambda Light Chains 13.5 mg/L (5.7-26.3); Vitamin B1, Thiamine 149.6 nmol/L (66.5-200.0)
== END | disposition home or self-care (01) ==
LOC: BWCLAB 08:42
PROVIDERS: PCP Internal Medicine; Referring Provider Psychiatry & Neurology Neurology; Visit Provider Psychiatry & Neurology Neurology
DX: G62.9 Polyneuropathy, unspecified (principal)
CPT/HCPCS: 36415; 80053; 82607; 82746; 83036; 83735; 83883; 84425; 84443; 85027; 85652; 86038; 86225; 86235

== ENCOUNTER → 2024-12-27 | Outpatient (CLI) | payer OTHER, SELFPAY ==
[2024-12-27 13:03] LABS: Anion Gap 10 (5-15); BUN 16 mg/dL (4-19); BUN/Creat Ratio 17.1 RATIO (10-20); Calcium,Total 8.9 mg/dL (7.6-11.0); Carbon Dioxide 23.4 mmol/L (21.0-32.0); Chloride 104 mmol/L (98-108); Creatinine, Serum 0.91 mg/dL (0.70-1.20); EST Glomerular Filtration Rate 72 (>60); Glucose 144 mg/dL (70-99); Sodium Level 138 mmol/L (133-145)
== END | disposition home or self-care (01) ==
LOC: BWCLAB 08:59
PROVIDERS: PCP Internal Medicine; Visit Provider Psychiatry & Neurology Neurology
DX: G62.9 Polyneuropathy, unspecified (principal)
CPT/HCPCS: 36415; 80048

== ENCOUNTER → 2025-03-06 | Outpatient (CLI) | payer OTHER, SELFPAY ==
--- NOTE | 2025-03-06 07:46 | US_ITS ---
PROCEDURE: GALLBLADDER 03/06/2025 REASON FOR EXAM: RUQ PAIN COMPARISON: No relevant prior. FINDINGS: Liver: Normal in size. 15.4 cm in length sagittally. Normal parenchymal echogenicity and echotexture. No ductal dilatation. Hepatopetal blood flow. Gallbladder: A solitary gallstone measuring 1.0 x 1.2 x 0.8 cm lodged in the neck. No sludge. No wall thickening. No pericholecystic edema. Common bile duct: 0.5 cm. . Pancreas: Normal. Right kidney: Size measures 10.5 x 5.5 x 4.5 cm. Cortex measures 1.2 cm. US/Gallbladder IMPRESSION: Cholelithiasis. A solitary gallstone is lodged in the gallbladder neck. Reading Location: [place] [id number]
== END | disposition home or self-care (01) ==
LOC: OPUS 07:44
PROVIDERS: PCP Internal Medicine; Referring Provider Surgery; Visit Provider Surgery
DX: R10.11 Right upper quadrant pain (principal)
CPT/HCPCS: 76705

== ENCOUNTER 2025-03-15 10:26 | Inpatient (IN) | payer OTHER, SELFPAY ==
--- NOTE | 2025-03-13 09:46 | EKG12_ITS ---
Test Reason : PREOP Blood Pressure : */* mmHG Vent. Rate : 80 BPM Atrial Rate : 80 BPM P-R Int : 134 ms QRS Dur : 78 ms QT Int : 386 ms P-R-T Axes : 55 17 26 degrees QTcB Int : 445 ms Normal sinus rhythm Low voltage QRS Borderline ECG Confirmed by Edgardo Lacy ([id number]), health editor TRINI LALA ([id number]) on 03/14/2025 10:14:17 AM Referred By: Fernando Ontiveros Confirmed By: Edgardo Lacy
[2025-03-13 11:32] LABS: Anion Gap 10 (5-15); BUN 17 mg/dL (4-19); BUN/Creat Ratio 18.2 RATIO (10-20); Calcium,Total 9.3 mg/dL (7.6-11.0); Carbon Dioxide 28.3 mmol/L (21.0-32.0); Chloride 102 mmol/L (98-108); Creatinine, Serum 0.91 mg/dL (0.70-1.20); EST Glomerular Filtration Rate 72 (>60); Glucose 97 mg/dL (70-99); Potassium 4.2 mmol/L (3.3-5.1); Sodium Level 140 mmol/L (133-145)
--- NOTE | 2025-03-14 10:39 | PAT.ANESEVAL ---
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 When Was Last Pacemaker Check QUESTION #4 FULL TEXT: You/Your Family Experience fever (hyperthermia) with Anesthesia Last Oral Intake Last Oral intake: Last Oral Intake NPO since Meds taken in AM with sips of water? Meds patient instructed to take am of surgery PONV PONV - geography professor: PONV - geography professor Female Yes 03/09/25 10:35 HX of Motion Sickness No 03/09/25 10:35 HX of N/V After Surgery No 03/09/25 10:35 Non-Smoker Yes 03/09/25 10:35 Duration of Surgery greater Yes 03/09/25 10:35 than 60 minutes Number of Risk Factors 3 03/09/25 10:35 PONV Score Moderate Risk 03/09/25 10:35 Height & Weight Height & Weight: Anesthesia: Height & Weight Height 5 ft 9 in 03/07/25 15:04 Respiratory Assessment Respiratory Assessment - geography professor: Respiratory Tract Infection Hx - geography professor Hx Respiratory Tract Infection No 03/09/25 10:35 STOP Sleep Apnea STOP Sleep Apnea - geography professor: STOP Sleep Apnea - geography professor Hx Hypertension No 03/09/25 10:35 Hx Sleep Apnea No 03/09/25 10:35 CPAP BIPAP Do you snore loudly (louder No 03/09/25 10:35 than talking or can be heard Do you often feel tired/ No 03/09/25 10:35 fatigued/ sleepy during daytime? Has anyone observed you stop No 03/09/25 10:35 breathing during sleep? STOP Results Negative 03/09/25 10:35 QUESTION #5 FULL TEXT : Do you snore loudly (louder than talking or can be heard through closed doors)? 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 Specify any problems Hx of Preganancy in last 3 No 03/09/25 10:35 Months Nurse Filling Out Transfusion ROSALEE 03/09/25 10:35 & Questions: Date: 03/09/25 03/09/25 10:35 Time: 10:37 03/09/25 10:35 Patient unable to answer at this time (ie. confused, unrespo /Reproduction History /Reproductive History - geography professor: /Reproductive Hx- geography professor Hx Now No 03/09/25 10:35 Gestational Age (in weeks): EDC: Hx Hx Para Hx Section SAB No 03/09/25 10:35 Active Medications Active Medications: Current Medications Generic Name Dose Route Start Last Admin Trade Name Freq PRN Reason Stop Dose Admin Indocyanine Green 3.75 mg/ N/A 1.5 mls @ 999 mls/hr 03/15/25 11:45 IV 03/15/25 11:46 PREOP [facility] Medical History (Updated 03/09/25 @ 10:45 by Sheila Snow) Anxiety History of IBS History of stress test RUQ abdominal pain Wears glasses History of steroid therapy Back pain Non-smoker Colitis Leg cramps History of pain when walking History of edema Acute diarrhea Neuropathy of right foot Peripheral neuropathy Erythromelalgia Scoliosis Asthma Degenerative disc disease Depression Home Medications ?Medication ?Instructions ?Recorded ?Last Taken ?Type multivitamin 1 tab PO DAILY 06/17/22 Unknown History ascorbate calcium (vitamin C) 500 500 mg PO DAILY 09/24/22 Unknown History mg tablet cholecalciferol (vitamin D3) 125 125 mcg PO DAILY 09/24/22 Unknown History mcg (5,000 unit) tablet flaxseed oil 1,000 mg capsule 1,000 mg PO DAILY 09/24/22 Unknown History budesonide-formoterol HFA 160 2 puff inhalation .Q4-6 PRN 11/05/23 Unknown Rx mcg-4.5 mcg/actuation aerosol shortness of breath or wheezing inhaler (Symbicort) #10.2 grams estradiol 1 mg tablet (Estrace) 1 mg PO DAILY #90 tabs 12/05/24 Unknown Rx duloxetine 60 mg capsule,delayed 60 mg PO BID #60 caps 12/07/24 Unknown Rx release furosemide 20 mg tablet 20 mg PO BID #60 tabs 12/07/24 Unknown Rx lidocaine-prilocaine 2.5 %-2.5 % 1 g topical .QID PRN pain #60 grams 12/07/24 Unknown Rx topical cream baclofen 10 mg tablet 10 mg PO QDAY PRN muscle spasm #30 01/16/25 Unknown Rx tabs dicyclomine 10 mg capsule 10 mg PO TID #30 caps 03/07/25 Unknown Rx cetirizine 10 mg tablet (24Hour 10 mg PO DAILY PRN allergy symptoms 03/09/25 Unknown History Allergy) meloxicam 7.5 mg tablet 7.5 mg PO DAILY PRN pain 03/09/25 Unknown History naltrexone 8 mg-bupropion 90 mg 1 tab PO BID WT LOSS 03/09/25 Unknown History tablet,extended release (Contrave) potassium chloride 10 mEq 10 meq PO QHS 03/09/25 Unknown History tablet,extended release Allergy/AdvReac Type Severity Reaction Status Date / Time Sulfa (Sulfonamide Allergy Mild rash Verified 03/09/25 10:27 Antibiotics) acetaminophen (From Vicodin) AdvReac Intermediate Other Verified 03/09/25 10:27 hydrocodone (From Vicodin) AdvReac Intermediate Other Verified 03/09/25 10:27 Family History Other Adopted Surgical History Hx of colonoscopy History of surgical procedure H/O tubal ligation S/P laparoscopic assisted vaginal hysterectomy (LAVH) delivery delivered Social History adopted: Yes household members: spouse current occupational status: employed current occupation: [employer] Smoking Status: Never smoker Electronic Cigarette Use: not used alcohol intake: current alcohol intake frequency: holidays/special occasions only details: social substance use type: does not use caffeine: Yes what type of physical activity do you participate in: none seatbelt use: always do you feel safe at home: Yes additional social history: [place]- Audit: Pertinent Findings Pertinent Findings EKG Perinent findings: Normal sinus rhythm 80 bpm. Low voltage QRS. 03/13/2025. Recommendation Anesthesia Recommendation Anesthesia recommendation: OPTIMIZED for anesthesia
[2025-03-15] VITALS (24 sets, daily range): BP systolic 83–158; BP diastolic 59–116; PULSE 70–193; RESP 13–20; TEMP 36.1–36.8; O2SAT 92–100; BMI 29.7; BMI 29.3
--- OUTSIDE RECORDS SUMMARY | 2025-03-15 06:34 | XMS RPT_ITS | CCD ---
Author Organization [facility] CliniSymd Care Team Providers Care Sat Act Instructor Name Role Phone Dr. Robby Pride Primary Care Provider 1([facility] )[phone] Dr. Robby Pride Referring Provider 1([facility])[phone] Dr. Yuli Ames Attending Provider 1([facility] )[phone] Dr. Robby Pride Primary Care Provider 1([facility] )[phone] Dr. Robby Pride Referring Provider 1([facility])[phone] Dr. Chico Urban Attending Provider 1([facility])[phone] Dr. Almas Poole Attending Provider 1([facility])[phone] Robby Pride Primary Care Provider 1([facility] )[phone] Dr. Robby Pride Referring Provider 1([facility])[phone] Dr. Chico Urban Attending Provider 1([facility])[phone] Dr. Almas Poole Attending Provider 1([facility])[phone] Jill Zelaya Attending Provider 1([facility])[phone] Robby Pride Primary Care Provider 1([facility] )[phone] Dr. Robby Pride Referring Provider 1([facility])[phone] Unavailable Primary Care Provider Dr. Jill Conley Primary Care Provider Dr. Jill Zelaya Attending Provider 1([facility]) Dr. Jill Zelaya Referring Provider 1([facility]) [phone] Dr. Robby Pride Referring Provider 1([facility])[phone] Dr. Yuli Ames Attending Provider 1([facility] )[phone] Dr. Jill Zelaya Primary Care Provider Dr. Jill Zelaya Attending Provider 1(330) Dr. Jill Zelaya Referring Provider 1(330) Dr. Yuli Ames Attending Provider 1(330 ) Dr. Billy Olivier Attending Provider 1(330) Dr. Almas Poole Attending Provider [phone] MIAH Segura Attending Provider 1(330) Dr. Jill Zelaya Primary Care Provider Dr. Jill Zelaya Attending Provider 1(330) Dr. Jill Zelaya Referring Provider 1(330) Dr. Yuli Amse Attending Provider 1(330 ) Dr. Billy Olivier Attending Provider 1(330) Dr. Almas Poole Attending Provider 1(330) MIAH Segura Attending Provider 1(330) Nathalie ROJO, Jill Del Toro Primary Care Provider Unava ilable Nathalie ROJO, Jill Del Toro Primary Care Provider 1(330 ) ROSINA ESTRADA Referring Unavailable ROSINA ESTRADA Attending Unavailable JILL ZELAYA G Primary Care Unavailable JILL ZELAYA Primary Care Unavailable ROSINA ESTRADA Referring Unavailable ROSINA ESTRADA Attending Unavailable ROBBY KILGORE Referring Unavailable NATHALIE, JILL G Primary Care Unavailable Nathalie ROJO, Dr. Gallagher Primary Care Provider 1( 30) Dr. Jill Zelaya MD Referring Provider Dr. Yuli Ames MD Attending Provider Joann ROJO, Dr. Hernandez Attending Provider [phone] Nathalie ROJO, Dr. Gallagher Primary Care Provider 1(3 [phone]) Dr. Jill Zelaya MD Referring Provider Dr. Yuli Ames MD Attending Provider Nathalie ROJO, Dr. Gallagher Attending Provider Ciara ROJO, Dr. Weldon Attending Provider Ciara ROJO, Dr. Weldon Referring Provider [phone] Rama ROJO, Dr. Fernando Pedro Attending Provider Nathalie, Jill Primary Care Unavailable David David Attending Unavailable [place], Jill Referring Unavailable Nathalie, Jill Primary Care Unavailable Yuli Ames Attending Unavailable [place], Jill Attending Unavailable [place], Jill Primary Care Unavailable Nathalie, Jill Referring Unavailable [place], Jill Primary Care Unavailable [place], Jill Referring Unavailable David David Attending Unavailable Bibianao Zoraida Referring Unavailable PerryullZoraida mcpherson Attending Unavailable [place], Jill Primary Care Unavailable Zoraida Segura Attending Unavailable Nathalie, Jill Primary Care Unavailable Zoraida Segura Referring Unavailable Fernando Ontiveros Referring Unavailable Fernando Ontiveros Attending Unavailable [place], Jill Primary Care Unavailable Fatemeh Urbina Attending Unavailable [place], Jill Referring Unavailable [place], Jill Primary Care Unavailable Nathalie, Jill Primary Care Unavailable [place], Jill Referring Unavailable David David Attending Unavailable Linwood Urbinaera Referring Unavailable Fatemeh Urbina Attending Unavailable [place], Jill Primary Care Unavailable Zoraida Segura Attending Unavailable [place], Jill Primary Care Unavailable Zoraida Segura Attending Unavailable [place], Jill Referring Unavailable Nathalie, Jill Primary Care Unavailable FerulloZoraida Attending Unavailable Nathalie, Jill Primary Care Unavailable [place], Jill Referring Unavailable Fernando Ontiveros Attending Unavailable Nathalie, Jill Primary Care Unavailable Nathalie, Jill Referring Unavailable Nathalie, Jill Primary Care Unavailable Nathalie, Jill Referring Unavailable Yuli Ames Attending Unavailable Nathalie, Jill Primary Care Unavailable [place], Jill Referring Unavailable Yuli Ames Attending Unavailable [place], Jill Primary Care Unavailable [place], Jill Referring Unavailable Yuli Ames Attending Unavailable Robotham, Fatemeh Attending Unavailable Robotham, Fatemeh Consulting Unavailable Nathalie, Jill Referring Unavailable [place], Jill Primary Care Unavailable Nathalie, Jill Primary Care Unavailable [place], Jill Referring Unavailable Joann David Attending Unavailable Robotham, Fatemeh Attending Unavailable Nathalie, Jill Primary Care Unavailable [place], Jill Referring Unavailable Nathalie, Jill Primary Care Unavailable [place], Jill Referring Unavailable Nathalie, Jill Attending Unavailable [place], Jill Primary Care Unavailable Joann, David Attending Unavailable Galileodour, David Referring Unavailable Allergies Allergy Classification Reported Allergen(s) Allergy Type Date of Onset Reaction(s) Facility (14 sources) Sulfonamides (Antibiotic); Translations: [Sulfa (Sulfonamide Antibiotics)] Allergy to substance 08-26-20 20 [facility] (2 sources) Cat; Translations: [CATS] Propensity to adverse reactions 08-14-20 05 Swelling [facility] Work Phone: (2 sources) Dog; Translations: [DOGS] Propensity to adverse reactions 08-14-20 05 Swelling [facility] Work Phone: (2 sources) Sulfamethoxazole / Trimethoprim; Translations: [SULFAMETHOXAZOLE-TR IMETHOPRIM] Drug Allergy 05-01-20 08 [facility] Work Phone: (1 source) hay fever [Other] Propensity to adverse reactions 08-14-20 05 Itching [facility] Work Phone: (2 sources) Horse Hair And Dander; Translations: [HORSE HAIR AND DANDER] Propensity to adverse reactions 08-14-20 05 Swelling [facility] Work Phone: (3 sources) Ciprofloxacin; Translations: [CIPROFLOXACIN] Drug Allergy 12-09-19 24 [facility] Work Phone: (3 sources) Seasonal allergy; Translations: [SEASONAL ALLERGIES] Allergy to substance 12-09-19 24 [facility] (1 source) OTHER; Translations: [OTHER] Propensity to adverse reactions (disorder) 11 [facility] Rep[facility] (1 source) Acetaminophen Drug Allergy 03-09-20 Other [facility] Comment on above: MAKES ME VERY ANGRY (1 source) HYDROcodone Drug Allergy 03-09-20 Other [facility] Comment on above: MAKES ME VERY ANGRY (1 source) Acetaminophen Drug Allergy 03-09-20 [facility] Repository (1 source) HYDROcodone Drug Allergy 03-09-20 [facility] Repository Medications Current Medications Medication Drug Class(es) Dates Sig (Normalized) Sig (Original) Budesonide-Formoter ol (6 sources) Corticosteroid, beta2-Adrenergic Agonist Start: 11-05-2023 Budesonide-Formote rol (Symbicort) 160-4.5 mcg/actuation HFA aerosol inhaler Active 2 NMA INHALATION .Q4-6 as needed for shortness of breath or wheezing 10.2 November 05, 2023 1:00am Start: 11-05-2023 take 1 puff(s) by in halation once Budesonide-Formoterol (Symbicort) 160-4.5 mcg/actuation HFA aerosol inhaler Active 2 PUFF INHALATION .Q4-6 10.2 November 05, 2023 1:00am Start: 11-05-2023 take 1 puff(s) by in halation once Budesonide-Formoterol (Symbicort) 160-4.5 mcg/actuation HFA aerosol inhaler Active 2 PUFF INHALATION .Q4-6 10.2 November 05, 2023 12:00am 12 hr buPROPion hydrochloride 90 mg / naltrexone hydrochloride 8 mg extended release oral tablet (5 sources) Opioid Antagonist, Aminoketone Start: 01-19-2025 End: 03-09-2025 Naltrexone-Bupropion (Contrave) 8-90 mg tablet extended release Active 1 {tbl} PO TWICE A DAY March 09, 2025 12:00am calcium ascorbate 500 mg oral tablet (11 sources) Start: 09-24-2022 End: 12-09-2023 take 1 tablet by mouth once daily Ascorbate Calcium (Vitamin C) 500 mg tablet Active 500 mg PO DAILY September 24, 2022 1:00am Comment on above: Take 1 tablet by lucinda once daily. cephalexin 250 mg oral capsule (3 sources) Cephalosporin Antibacterial Start: 01-13-2023 cephALEXin (KEFLEX) 250 mg capsule TAKE 1 CAPSULE BY MOUTH AFTER INTERCOURSE 0 01/13/2023 Active Comment on above: TAKE 1 CAPSULE BY MO UTH AFTER INTERCOURSE cetirizine hydrochloride 10 mg oral tablet (3 sources) Histamine-1 Receptor Antagonist Start: 03-09-2025 take 1 tablet by mouth once daily as needed Cetirizine (24hour Allergy) 10 mg tablet Active 10 mg PO DAILY as needed for allergy symptoms March 09, 2025 12:00am Start: 12-09-2023 take 1 capsule by mo uth once daily Cetirizine (ZYRTEC) 10 mg cap Take 1 capsule by mouth once daily. 0 12/09/2023 Active Comment on above: Take 1 capsule by mo ut once daily. cholecalciferol 0.125 mg oral tablet (12 sources) Vitamin D Start: 09-24-20 take 1 tablet by mouth once daily cholecalciferol (VITAMIN D3) 5,000 unit tab Take 5,000 Units by mouth once daily. 0 09/24/2022 Active Start: 09-24-2022 take 1 tablet by [facility] once daily Cholecalciferol (Vitamin D3) 125 mcg (5,000 unit) tablet Active 125 ug PO DAILY September 24, 2022 1:00am Comment on above: Take 5,000 Units by mouth once daily. dicyclomine hydrochloride 10 mg oral capsule (1 source) Anticholinergic Start: 03-07-20 take 1 capsule by mouth three times daily Dicyclomine 10 mg capsule Active 10 mg PO THREE TIMES A DAY March 07, 2025 12:00am estradiol 1 mg oral tablet (20 sources) Estrogen Start: 12-06-19 take 1 tablet by mouth once daily Estradiol (Estrace) 1 mg tablet Active 1 mg PO DAILY December 05, 2024 11:16am Start: 03-05-2022 End: 09-24-2022 Estradiol (Estrace) 0.01 % ( 0.1 mg/gram) cream Discontinued 0 VAGINAL .COMPLEX 42.5 March 05, 2022 12:00am September 24, 2022 11:35am use fingertip amount or 1-2g every night vaginally x 2 weeks, then 1-3x weekly for maintenance Start: 03-05-2022 End: 12-22-2022 Estradiol (Estrace) 0.01 % ( 0.1 mg/gram) cream Discontinued 0 VAGINAL .COMPLEX 42.5 March 05, 2022 12:00am September 24, 2022 11:35am use fingertip amount or 1-2g every night vaginally x 2 weeks, then 1-3x weekly for maintenance Start: 09-14-2016 End: 10-17-2024 take 1 tablet by mouth once daily Estradiol (Estrace) 1 mg tablet Discontinued 1 mg PO DAILY January 13, 2024 4:20pm October 17, 2024 12:43pm Comment on above: Take 1 tablet by lucinda th once daily. furosemide 20 mg oral tablet (6 sources) Loop Diuretic Start: 12-07-2024 take 1 tablet by mouth twice daily Furosemide 20 mg tablet Active 20 mg PO TWICE A DAY December 07, 2024 2:26pm Start: 08-17-2024 End: 12-07-2024 take 1 tablet by mouth once daily in the morning Furosemide 20 mg tablet Discontinued 20 mg PO EVERY MORNING August 17, 2024 1:00am December 07, 2024 2:30pm lidocaine 25 mg/ml / prilocaine 25 mg/ml topical cream (6 sources) Antiarrhythmic, Amide Local Anesthetic Start: 08-17-2024 End: 12-07-2024 Lidocaine-Prilocaine 2.5-2.5 % cream Active 1 g TOPICAL .QID as needed for pain December 07, 2024 2:30pm Dispense two 30 gm tubes per month. linseed oil 1000 mg oral capsule (9 sources) Start: 09-24-2022 take 1 capsule by mouth once daily Flaxseed Oil 1,000 mg capsule Active 1000 mg PO DAILY September 24, 2022 1:00am administer with a meal meloxicam 7.5 mg oral tablet (19 sources) Nonsteroidal Anti-inflammatory Drug Start: 01-25-2025 End: 03-09-2025 take 1 tablet by mouth once daily as needed for pain Meloxicam 7.5 mg tablet Active 7.5 mg PO DAILY as needed for pain March 09, 2025 12:00am Start: 04-12-2024 End: 05-26-2024 take 1 tablet by mouth once daily Meloxicam 15 mg tablet Discontinued 15 mg PO DAILY April 12, 2024 12:00am May 26, 2024 1:28pm Start: 03-05-2022 End: 09-24-2022 take 1 tablet by mouth once daily Meloxicam 15 mg tablet Discontinued 15 mg PO DAILY March 05, 2022 12:00am September 24, 2022 11:35am Multivitamin preparation (8 sources) Start: 06-17-2022 take 1 tablet by mouth once daily Multivitamin Active 1 TABLET PO DAILY June 16, 2022 11:00pm Start: 06-17-2022 take 1 tablet by lucinda th once daily Multivitamin Active 1 TABLET PO DAILY June 17, 2022 12:00am MULTIVITAMIN TAB (3 sources) Start: 08-06-2005 MULTIVITAMIN T AB Take one(1) tablet daily. 0 08/06/2005 Active Comment on above: Take one(1) tablet d aily. Multivitamin tablet (3 sources) Start: 06-17-2022 Multivitamin t ablet Active 1 {tbl} PO DAILY June 17, 2022 12:00am potassium chloride 10 meq extended release oral tablet (10 sources) Start: 08-17-2024 End: 03-09-2025 take 1 tablet by mouth at bedtime Potassium Chloride 10 mEq tablet extended release Active 10 meq PO AT BEDTIME March 09, 2025 12:00am Completed/Discontinued Medications Medication Drug Class(es) Dates Sig [...] every 4 hours as needed for Headache. [id number] 200 actuat albuterol 0.09 mg/actuat metered dose inhaler (20 sources) beta2-Adrenergic Agonist Start: 09-24-2022 End: 04-13-2024 Albuterol Sulfate 90 mcg/actuation HFA aerosol inhaler Discontinued 2 NMA INHALATION EVERY 6 HOURS as needed for shortness of breath or wheezing 6.7 October 29, 2023 9:49am April 13, 2024 8:52am Start: 09-24-2022 End: 10-29-2023 take 1 puff(s) by inhalation every six hours Albuterol Sulfate Discontinued 2 PUFF INHALATION EVERY 6 HOURS 6.7 September 29, 2022 4:45pm October 29, 2023 9:49am amitriptyline hydrochloride 50 mg oral tablet (20 sources) Tricyclic Antidepressant Start: 10-26-2022 End: 11-05-2022 take 1 tablet by mouth once daily Amitriptyline 50 mg tablet Discontinued 50 mg PO DAILY October 26, 2022 10:26am November 05, 2022 9:04am Start: 09-24-2022 End: 10-26-2022 take 1 tablet by mouth once daily Amitriptyline 25 mg tablet Discontinued 25 mg PO DAILY 2022 12:50pm October 26, 2022 10:26am ascorbic acid/vitamin E/biotin (HAIR, SKIN, NAILS WITH [...] on above: Take 1 capsule by mo [facility] once daily. aspirin 325 mg oral tablet (2 sources) Platelet Aggregation Inhibitor, Nonsteroidal Anti-inflammatory Drug Start: 12-09-19 End: 03-30-20 take 1 tablet by mouth once daily aspirin 325 mg tablet Take 1 tablet by mouth once daily. 0 12/09/2023 03/30/2024 Discontinued Comment on above: Take 1 tablet by [facility] once daily. azithromycin 250 mg oral tablet (6 sources) Macrolide Antimicrobial Start: 11-05-19 End: 01-20-20 Azithromycin (Zithromax Z-Eliezer) 250 mg tablet Discontinued 0 PO .COMPLEX November 05, 2023 1:00am January 20, 2024 2:00pm For 250 mg dose pack: take 500 mg today (day 1), then 250 mg for 4 days (days 2-5) PO baclofen 10 mg oral tablet (20 sources) gamma-Aminobutyric Acid-ergic Agonist Start: 02-05-20 End: 01-17-20 take 1 tablet by mouth once daily as needed for pain Baclofen 10 mg tablet Discontinued 10 mg PO daily as needed for muscle spasm November 06, 2024 9:22am January 16, 2025 2:14pm TAKE 1 TABLET BY MOUTH NEEDED FOR PAIN daily; Start: 09-24-2022 End: 02-04-2023 Baclofen 5 mg tablet Discont inued 10 mg PO .PRN December 03, 2022 9:03am February 04, 2023 1:38pm Start: 09-24-2022 End: 02-04-2023 Baclofen Discontinued 10 MG PO .PRN December 03, 2022 9:03am February 04, 2023 1:38pm Start: 03-05-2022 End: 09-24-2022 take 1 tablet by mouth twice daily Baclofen 5 mg tablet Discontinued 5 mg PO TWICE A DAY March 05, 2022 12:00am September 24, 2022 11:30am Comment on above: Take 1 tablet by lucinda as needed. betamethasone 0.5 mg/ml / clotrimazole 10 mg/ml topical cream (2 sources) Azole Antifungal, Corticosteroid Start: 09-12-20 End: 12-09-19 clotrimazole-betame thasone (LOTRISONE) cream Apply 1 application to affected area twice daily. 30 g 1 09/12/2015 12/09/2023 Discontinued (Course of therapy completed) Comment on above: Apply 1 application to affected area twice daily. biotin 5 mg oral capsule (9 sources) Start: 09-24-20 End: 10-07-19 take 1 capsule by mouth once daily Biotin 5 mg capsule Discontinued 5 mg PO DAILY September 24, 2022 1:00am October 07, 2023 2:28pm 24 hr budesonide 9 mg extended release oral tablet (3 sources) Corticosteroid Start: 05-29-20 End: 06-08-20 take 1 tablet by mouth once daily Budesonide 9 mg tablet,delayed and ext.release Discontinued 9 mg PO DAILY 07 13May 29, 2024 12:00am June 07, 2024 12:00am June 08, 2024 12:03am 12 hr buPROPion hydrochloride 100 mg extended release oral tablet (20 sources) Aminoketone Start: 11-14-19 End: 01-20-20 take 1 tablet by mouth twice daily Bupropion Hcl (Wellbutrin Sr) 100 mg tablet sustained-release 12 hr Discontinued 100 mg PO TWICE A DAY November 14, 2024 1:00am January 19, 2025 12:32pm Start: 10-10-2024 End: 11-14-2024 take 1 tablet by mouth once daily Bupropion Hcl 75 mg tablet Discontinued 75 mg PO daily October 10, 2024 9:39am November 14, 2024 12:57pm Start: 10-09-2024 End: 10-10-2024 Bupropion Hcl 75 mg tablet Discontinued 75 mg PO daily October 09, 2024 1:00am October 10, 2024 9:39am administer 6 hours apart Start: 05-09-2024 End: 10-09-2024 take 1 tablet by mouth once daily in the morning Bupropion Hcl 150 mg tablet extended release 24 hr Discontinued 150 mg PO EVERY MORNING May 09, 2024 10:35am October 09, 2024 5:53pm Start: 04-07-2024 End: 05-09-2024 take 1 tablet by mouth once daily in the morning Bupropion Hcl (Wellbutrin Xl) 300 mg tablet extended release 24 hr Discontinued 300 mg PO EVERY MORNING April 07, 2024 12:00am May 09, 2024 10:35am Start: 01-20-2024 End: 04-07-2024 take 1 tablet by mouth once daily Bupropion Hcl (Wellbutrin Sr) 150 mg tablet sustained-release 12 hr Discontinued 450 mg PO DAILY January 20, 2024 2:26pm April 07, 2024 11:20am Start: 12-03-2022 End: 01-20-2024 take 1 tablet by mouth once daily Bupropion Hcl (Wellbutrin Sr) 150 mg tablet sustained-release 12 hr Discontinued 300 mg PO DAILY November 30, 2023 9:02am January 20, 2024 5:04pm Start: 11-16-2022 End: 12-03-2022 take 1 tablet by mouth once daily Bupropion Hcl (Wellbutrin Sr) 150 mg tablet sustained-release 12 hr Discontinued 150 mg PO DAILY November 16, 2022 1:00am December 03, 2022 9:04am Start: 09-24-2022 End: 11-05-2022 Bupropion Hcl 150 mg tablet extended release 24 hr Discontinued 150 mg PO DAILY September 24, 2022 12:39pm November 05, 2022 9:04am take 150mg daily for 7 days, then every other day for 7 days. Start: 06-17-2022 End: 09-24-2022 take 1 tablet by mouth every twenty-four hours Bupropion Hcl 300 mg tablet extended release 24 hr Discontinued 300 mg PO June 17, 2022 12:00am September 24, 2022 12:43pm Start: 03-05-2022 End: 06-17-2022 take 1 tablet by mouth once daily in the morning Bupropion Hcl (Wellbutrin Xl) 150 mg tablet extended release 24 hr Discontinued 150 mg PO EVERY MORNING March 05, 2022 12:00am June 17, 2022 3:02pm Start: 08-26-2020 End: 03-05-2022 take 1 tablet by mouth once daily in the morning Bupropion Hcl (Wellbutrin Xl) 300 mg tablet extended release 24 hr Discontinued 300 mg PO EVERY MORNING August 26, 2020 1:00am March 05, 2022 10:51am Comment on above: Take 1 tablet by lucinda th once daily. calcium carbonate 1500 mg oral tablet (9 sources) Start: 2 End: 5 take 1 tablet by mouth once daily Calcium Carbonate (Calcium 600) 600 mg calcium (1,500 mg) tablet Discontinued 600 mg PO DAILY September 24, 2022 1:00am October 17, 2024 12:42pm celecoxib 100 mg oral capsule (6 sources) Nonsteroidal Anti-inflammatory Drug Start: 4 End: 5 take 1 capsule by mouth twice daily Celecoxib 100 mg capsule Discontinued 100 mg PO TWICE A DAY 60 August 30, 2024 1:39pm December 07, 2024 2:29pm Start: 08-03-2024 End: 08-30-2024 take 1 capsule by mouth twice daily Celecoxib (Celebrex) 50 mg capsule Discontinued 50 mg PO TWICE A DAY 60 August 03, 2024 12:00am August 30, 2024 1:40pm chlorzoxazone 500 mg oral tablet (13 sources) Muscle Relaxant Start: 08-26-2020 End: 03-05-2022 take 1 tablet by mouth three times daily Chlorzoxazone 500 mg tablet Discontinued 500 mg PO THREE TIMES A DAY August 26, 2020 1:00am March 05, 2022 10:52am DULoxetine 60 mg delayed release oral capsule (15 sources) Serotonin and Norepinephrine Reuptake Inhibitor Start: 08-17-2024 End: 12-07-2024 take 1 capsule by mouth twice daily Duloxetine 60 mg capsule,delayed release(DR/EC) Discontinued 60 mg PO TWICE A DAY 60 October 02, 2024 1:00am December 07, 2024 2:30pm Start: 04-18-2024 End: 04-27-2024 take 1 capsule by mouth once daily Duloxetine 30 mg capsule,delayed release(DR/EC) Discontinued 30 mg PO .Nightly April 18, 2024 12:00am April 27, 2024 2:02pm Start: 04-18-2024 End: 08-17-2024 take 1 capsule by mouth once daily at bedtime Duloxetine 60 mg capsule,delayed release(DR/EC) Discontinued 60 mg PO AT BEDTIME April 18, 2024 12:00am August 17, 2024 3:46pm Begin after completing one week course of duloxetine 30mg nightly. FLUoxetine 10 mg oral capsule (9 sources) Serotonin Reuptake Inhibitor Start: 04-07-2024 End: 10-02-2024 take 1 capsule by mouth once daily Fluoxetine (Prozac) 10 mg capsule Discontinued 10 mg PO DAILY 90 August 13, 2024 6:31pm October 02, 2024 6:06pm gabapentin 600 mg oral tablet (20 sources) Anti-epileptic Agent Start: 2022 End: 11-05-2022 take 1 tablet by mouth twice daily Gabapentin 600 mg tablet Discontinued 600 mg PO TWICE A DAY 60 2022 1:00am November 05, 2022 9:38am Start: 09-24-2022 End: 2022 take 2 capsules by mouth twice daily Gabapentin 300 mg capsule Discontinued 600 mg PO TWICE A DAY 60 September 29, 2022 4:46pm 2022 4:05pm Start: 09-24-2022 End: 2022 take 600 mg by mouth twice daily Gabapentin Discontinu ed 600 MG PO TWICE A DAY 60 September 29, 2022 4:46pm 2022 4:05pm Start: 08-26-2020 End: 09-24-2022 take 1 capsule by mouth once daily Gabapentin 300 mg capsule Discontinued 300 mg PO DAILY August 26, 2020 1:00am September 24, 2022 11:30am Start: 09-15-2016 End: 03-05-2023 gabapentin (NEURONTIN) 300 m g capsule Take 900 mg at bedtime and 300 mg in the morning daily 360 capsule 3 09/15/2016 03/05/2023 Discontinued (Course of therapy completed) Comment on above: Take 900 mg at bedti me and 300 mg in the morning daily Ibuprofen (3 sources) Nonsteroidal Anti-inflammatory Drug End: 03-30-2024 IBUPROFEN ORAL Take by mouth as needed. 0 03/30/2024 Discontinued IBUPROFEN ORAL T jonathan by mouth as needed. 0 Active Comment on above: Take by mouth as nee ded. naltrexone hydrochloride 50 mg oral tablet (3 sources) Opioid Antagonist Start: 10-17-19 End: 01-20-20 take 0.5 tablet by mouth twice daily in the morning Naltrexone 50 mg tablet Discontinued 25 mg PO .bid with meals October 17, 2024 1:00am January 19, 2025 12:32pm start with 1/2 tab in am x 1-2 weeks then take 1/2 tab in am and pm with high protein meal. do not take with alcohol nitrofurantoin, macrocrystals 25 mg / nitrofurantoin, monohydrate 75 mg oral capsule (1 source) Nitrofuran Antibacterial Start: 12-12-19 16 End: 03-05-20 23 nitrofurantoin monohydrate and macrocrystal (MACROBID) 100 mg capsule Take one tablet after intercourse TAKE WITH FOOD 30 capsule 1 12/12/2015 03/05/2023 Discontinued (Course of therapy completed) Comment on above: Take one tablet afte r intercourse TAKE WITH FOOD predniSONE 50 mg oral tablet (6 sources) Start: 11-05-19 24 End: 02-07-20 24 take 1 tablet by mouth once daily Prednisone 50 mg tablet Discontinued 50 mg PO DAILY 5 November 05, 2023 1:00am November 09, 2023 1:00am November 10, 2023 1:04am pregabalin 100 mg oral capsule (20 sources) Start: 11-16-19 End: 04-27-20 take 1 capsule by mouth once daily Pregabalin (Lyrica) 100 mg capsule Discontinued 100 mg PO DAILY March 27, 2024 10:14pm April 27, 2024 2:02pm Start: 10-07-2023 End: 01-20-2024 take 1 capsule by mouth twice daily Pregabalin 150 mg capsule Discontinued 150 mg PO TWICE A DAY 60 November 08, 2023 10:52pm January 20, 2024 2:01pm Start: 12-03-2022 End: 10-07-2023 take 1 capsule by mouth twice daily Pregabalin 100 mg capsule Discontinued 100 mg PO TWICE A DAY 60 August 30, 2023 8:20pm October 08, 2023 12:01am Start: 11-05-2022 End: 12-03-2022 take 1 capsule by mouth once daily, then take 1 capsule by mouth twice daily Pregabalin (Lyrica) 75 mg capsule Discontinued 0 PO .COMPLEX 60 November 05, 2022 1:00am December 03, 2022 9:29am orally; take 75mg daily for 1 week, then 75mg twice daily Comment on above: Take 1 capsule by mo ut twice daily. Take 1 capsule by mo ut two times a day. 100mg in AM and 150mg in PM Sod Sulf-Pot Chloride-Mag Sulf (3 sources) Start: End: take 1.479 tablets by mouth once Sod Sulf-Pot Chloride-Mag Sulf (Sutab) 1.479-0.188- 0.225 gram tablet Discontinued 0 PO per package directions 1 June 01, 2024 12:00am July 20, 2024 10:48am PO PER PKG DIR topiramate 25 mg oral tablet (9 sources) Start: End: take 1 tablet by mouth twice daily before breakfast Topiramate (Topamax) 25 mg tablet Discontinued 25 mg PO TWICE A DAY as needed for WEIGHT LOSS July 20, 2024 12:00am November 14, 2024 12:57pm take before breakfast and before dinner traMADol hydrochloride 50 mg oral tablet (13 sources) Opioid Agonist Start: End: take 1 tablet by mouth once daily Tramadol 50 mg tablet Discontinued 50 mg PO DAILY August 26, 2020 1:00am September 24, 2022 11:35am 24 hr venlafaxine 37.5 mg extended release oral capsule (14 sources) Serotonin and Norepinephrine Reuptake Inhibitor Start: End: take 1 capsule by mouth once daily Venlafaxine (Effexor Xr) 37.5 mg capsule,extended release 24hr Discontinued 37.5 mg PO DAILY August 26, 2020 1:00am March 05, 2022 10:52am Start: 09-14-2016 End: 03-05-2023 venlafaxine (EFFEXOR) 75 mg tablet Indications: New daily persistent headache , New onset headache Take 2.5 tabs daily 225 tablet 3 09/14/2016 03/05/2023 Discontinued (Course of therapy completed) Comment on above: Take 2.5 tabs daily Problems Active Problems Problem Classification Problem Date Documented Da te Episodic/Chronic Abdominal pain (4 sources) Right upper quadrant pain; Translations: [Right upper quadrant pain] Onset: 03-10-2025 03-02-2025 Episodic Acute bronchitis (9 sources) Acute bronchitis; Translations: [Acute bronchitis, unspecified] 11-05-2023 Episodic Administrative/social admission (2 sources) Persons encountering health services in other specified circumstances; Translations: [Other reasons for seeking consultation] Episodic Asthma (20 sources) Mild intermittent asthma; Translations: [Mild intermittent asthma, uncomplicated] Resolved: 10-18-2012 Chronic Comment on above: PRN INHALER/WITH ILL NESS Genitourinary symptoms and ill-defined conditions (3 sources) Female stress incontinence; Translations: [Stress incontinence (female) (male)] Onset: 08-15-2012 08-15-2012 Chronic Immunizations and screening for infectious disease (5 sources) Encounter for immunization; Translations: [Need for prophylactic vaccination and inoculation against unspecified single disease] Onset: 01-25-2025 Episodic Menstrual disorders (10 sources) Irregular periods; Translations: [Irregular menstruation, unspecified] Onset: 09-18-2009 Resolved: 10-24-2012 09-18-2009 Chronic Miscellaneous mental health disorders (14 sources) Body dysmorphic disorder; Translations: [Body dysmorphic disorder] 10-15-2023 Chronic Mood disorders (20 sources) Mild depression; Translations: [Mild depression] Onset: 02-02-2006 Resolved: 10-18-2012 Chronic Nonmalignant breast conditions (7 sources) Breast lump; Translations: [Unspecified lump in the left breast, upper inner quadrant] 03-11-2023 Episodic Comment on above: imaging ordered Osteoarthritis (12 sources) Arthritis; Translations: [Unspecified osteoarthritis, unspecified site] Onset: 05-07-2006 09-24-2022 Chronic Other acquired deformities (4 sources) Scoliosis of lumbar spine; Translations: [Other secondary scoliosis, lumbar region] 06-17-2022 Chronic Other acquired deformities (16 sources) Other secondary scoliosis, lumbar region; Translations: [Scoliosis associated with other conditions] Chronic Other aftercare (2 sources) Encounter for therapeutic drug level monitoring; Translations: [Encounter for therapeutic drug monitoring] Episodic Other circulatory disease (3 sources) Erythromelalgia; 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] Chronic Other circulatory disease (1 source) Acrocyanosis; Translations: [Other specified peripheral vascular diseases] 01-03-2024 Chronic Other circulatory disease (1 source) Raynaud's disease; Translations: [Raynaud's syndrome without gangrene] 04-24-2024 Chronic Other circulatory disease (1 source) Erythromelalgia; 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 (HCC)] Onset: 03-30-2024 Chronic Other connective tissue disease (1 source) 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; Translations: [Neuralgia and neuritis, unspecified] Episodic Other connective tissue disease (3 sources) Pain in left lower limb; Translations: [Pain in left leg] 04-27-2024 Episodic Other gastrointestinal disorders (1 source) Irritable bowel syndrome without diarrhea; Translations: [Irritable bowel syndrome without diarrhea] Onset: 06-09-2024 Chronic Other gastrointestinal disorders (3 sources) Acute diarrhea; Translations: [Diarrhea, unspecified] 06-01-2024 Episodic Other inflammatory condition of skin (3 sources) Rosacea; Translations: [Rosacea, unspecified] Onset: 01-29-2012 01-29-2012 Chronic Other nervous system disorders (8 sources) Polyneuropathy, unspecified; Translations: [Unspecified hereditary and idiopathic peripheral neuropathy] Onset: 12-30-2024 Chronic Other nervous system disorders (3 sources) Right-sided piriformis syndrome; Translations: [Lesion of sciatic nerve, right lower limb] Onset: 10-15-2015 10-15-2015 Chronic Other nervous system disorders (1 source) Neuropathy of lower limb; Translations: [Unspecified mononeuropathy of right lower limb] 03-11-2023 Chronic Other nervous system disorders (6 sources) Right leg peripheral neuropathy; Translations: [Unspecified mononeuropathy of right lower limb] 03-11-2023 Chronic Other nervous system disorders (1 source) Neuropathy; Translations: [Polyneuropathy, unspecified] 12-09-2023 Chronic Other nervous system disorders (1 source) Small fiber neuropathy; Translations: [Polyneuropathy, unspecified] 12-09-2023 Chronic Other nervous system disorders (8 sources) Polyneuropathy; Translations: [Polyneuropathy, unspecified] 04-27-2024 Chronic Other non-traumatic joint disorders (3 sources) Arthralgia of the pelvic region and thigh; Translations: [Pain in unspecified hip] 09-23-2006 Episodic Other non-traumatic joint disorders (5 sources) Hip pain; Translations: [Pain in unspecified hip] Onset: 05-31-2012 05-31-2012 Episodic Other non-traumatic joint disorders (4 sources) Pain in left shoulder; Translations: [Pain in joint, shoulder region] 03-04-2023 Episodic Other non-traumatic joint disorders (7 sources) Pain in right hip; Translations: [Pain in joint, pelvic region and thigh] 03-04-2023 Episodic Other nutritional; endocrine; and metabolic disorders (4 sources) Body mass index 30+ - obesity; Translations: [Obesity, unspecified] 10-22-2024 Chronic Other nutritional; endocrine; and metabolic disorders (12 sources) Overweight; Translations: [Overweight] 10-15-2023 Episodic Comment on above: Nutrition plan: Emil black calorie restricted nutritional plan- Baokim darion. nutrition counseling doneMedication plan: contrave but will max at one tab BID, tolerated well so will switch to generic dosing with increased naltrexone 25 bid and 100 wellbutrin SR bidbirth control- hyst/postmenBehavior intervention: CBT recommended, recommend daily journal of food intake with electronic methodsExercise plan: increase daily steps and NEAT activity, get activity tracker Nutrition plan: [place] nced calorie restricted nutritional plan- Baokim darion. nutrition counseling doneMedication plan: contrave but will max at one tab BIDbirth control- hyst/postmenBehavior intervention: CBT recommended, recommend daily journal of food intake with electronic methodsExercise plan: increase daily steps and NEAT activity, get activity tracker Other nutritional; endocrine; and metabolic disorders (6 sources) Overweight in adulthood with body mass index of 25 or more but less than 30; Translations: [Body mass index (BMI) 27.0-27.9, adult] 10-15-2023 Episodic Comment on above: SW- 189 10/14Initial goal- 5% weight reduction with nutritional and medication intervention recommendations.labs ordered by PCP Other nutritional; endocrine; and metabolic disorders (3 sources) Body mass index (BMI) 27.0-27.9, adult; Translations: [Body Mass Index 27.0-27.9, adult] 10-14-2023 Episodic Other nutritional; endocrine; and metabolic disorders (3 sources) Overweight; Translations: [Overweight] 10-14-2023 Episodic Other nutritional; endocrine; and metabolic disorders (10 sources) Body mass index 25-29 - overweight; Translations: [Overweight] 11-14-2024 Episodic Comment on above: SW- 209 10/14/24Initi al goal- s/p 5% weight reduction with nutritional and medication intervention recommendations.labs ordered by PCP- reviewed. Prolapse of female genital organs (9 sources) Midline cystocele; Translations: [Cystocele, midline] Onset: 09-18-2009 09-18-2009 Chronic Residual codes; unclassified (6 sources) Peripheral edema; Translations: [Localized edema] 11-05-2023 Episodic Residual codes; unclassified (3 sources) Insomnia, unspecified; Translations: [Insomnia, unspecified] 10-07-2023 Episodic Residual codes; unclassified (3 sources) Localized edema; Translations: [Edema] 11-05-2023 Episodic Residual codes; unclassified (6 sources) Edema of lower extremity; Translations: [Localized edema] 08-17-2024 Episodic Residual codes; unclassified (3 sources) Insomnia; Translations: [Insomnia, unspecified] 04-27-2024 Episodic Spondylosis; intervertebral disc disorders; other back problems (12 sources) Other intervertebral disc degeneration, lumbar region; Translations: [Degeneration of lumbar or lumbosacral intervertebral disc] Onset: 02-02-2006 Chronic Spondylosis; intervertebral disc disorders; other back problems (3 sources) Backache; Translations: [Dorsalgia, unspecified] 09-23-2006 Episodic Unclassified (1 source) Established Patient Onset: 03-30-2024 Past or Other Problems Problem Classification Problem Date Documented Da te Episodic/Chronic Allergic reactions (2 sources) Radiation-induced dermatosis; Translations: [Other skin changes due to chronic exposure to nonionizing radiation] Onset: 09-03-2008 Resolved: 10-18-2012 10-18-2012 Episodic Cardiac dysrhythmias (1 source) Palpitations; Translations: [Palpitations] Onset: 10-13-2000 Resolved: 10-18-2012 10-18-2012 Episodic Hemorrhoids (1 source) Internal hemorrhoids; Translations: [Other hemorrhoids] Onset: 09-10-2006 Resolved: 10-18-2012 10-18-2012 Episodic Malaise and fatigue (1 source) Malaise and fatigue; Translations: [Other malaise] Onset: 03-04-2003 Resolved: 10-18-2012 10-18-2012 Episodic Other and unspecified benign neoplasm (1 source) Melanocytic nevus of trunk; Translations: [Melanocytic nevi of trunk] Onset: 05-31-2011 Resolved: 10-18-2012 10-18-2012 Episodic Other and unspecified benign neoplasm (1 source) Melanocytic nevus of upper limb; Translations: [Melanocytic nevi of unspecified upper limb, including shoulder] Onset: 05-31-2011 Resolved: 10-18-2012 10-18-2012 Episodic Other and unspecified benign neoplasm (1 source) Senile angioma; Translations: [Hemangioma of skin and subcutaneous tissue] Onset: 05-31-2011 Resolved: 10-18-2012 10-18-2012 Episodic Other circulatory disease (3 sources) Non-neoplastic nevus; Translations: [Nevus, non-neoplastic] Onset: 09-03-2008 09-03-2008 Episodic Other connective tissue disease (3 sources) Enthesopathy of hip region; Translations: [Other specified enthesopathies of unspecified lower limb, excluding foot] Onset: 05-31-2012 05-31-2012 Episodic Other connective tissue disease (1 source) Bicipital tenosynovitis; Translations: [Bicipital tendinitis, unspecified shoulder] Onset: 05-07-2006 Resolved: 10-18-2012 10-18-2012 Episodic Other gastrointestinal disorders (1 source) Irritable bowel syndrome; Translations: [Irritable bowel syndrome without diarrhea] Resolved: 10-18-2012 10-18-2012 Chronic Other gastrointestinal disorders (1 source) Diarrhea; Translations: [Diarrhea, unspecified] Onset: 09-10-2006 Resolved: 10-18-2012 10-18-2012 Episodic Other gastrointestinal disorders (2 sources) Diarrhea, unspecified; Translations: [Diarrhea, unspecified] Onset: 08-07-2024 Episodic Other non-traumatic joint disorders (1 source) Soft tissue lesion of shoulder region; Translations: [Other specified joint disorders, unspecified shoulder] Onset: 05-07-2006 Resolved: 10-18-2012 10-18-2012 Episodic Other screening for suspected conditions (not mental disorders or infectious disease) (7 sources) Encounter for screening for cardiovascular disorders; Translations: [Screening for other and unspecified cardiovascular conditions] Onset: 08-03-2024 10-07-2023 Episodic Other skin disorders (3 sources) Disorder of skin pigmentation; Translations: [Disorder of pigmentation, unspecified] Onset: 09-03-2008 10-29-2011 Episodic Other skin disorders (1 source) Seborrheic keratosis; Translations: [Other seborrheic keratosis] Onset: 09-03-2008 Resolved: 10-18-2012 10-18-2012 Episodic Other skin disorders (1 source) Inflamed seborrheic keratosis; Translations: [Inflamed seborrheic keratosis] Onset: 09-03-2008 Resolved: 10-18-2012 10-18-2012 Episodic Other skin disorders (1 source) Actinic keratosis; Translations: [Actinic keratosis] Onset: 05-31-2011 Resolved: 10-18-2012 10-18-2012 Episodic Other skin disorders (1 source) Solar lentigo; Translations: [Other melanin hyperpigmentation] Onset: 05-31-2011 Resolved: 10-18-2012 10-18-2012 Episodic Viral infection (1 source) Verruca vulgaris; Translations: [Viral wart, unspecified] Onset: 09-03-2008 Resolved: 10-18-2012 10-18-2012 Episodic Results Test Name Value Interpretation Reference Range Facility /Vick 03-14-2025 /[facility] Medical Records Department [address] [place] [address] PAT - Anesthesia 03/14/25 1039 MR#: [id number] Acct: [id number] Name: MORENO VANESSA Rep #: [id number] : 1965 59 From: Warner Mahoney MD PCP: Dr. Jill Zelaya MD Status:PRE SDC Y Race: C Location: [facility] [place] Pre-Assessment Diagnosis/Proposed Procedure Planned Operative Procedure(s): Laparoscopic, Cholecystectomy with IOC Anesthesia History Anesthesia History - network development coordinator: Anesthesia History - network development coordinator Hx Hospitalization No 03/09/25 10:35 Any Problems With Anesthesia No 03/09/25 10:35 Cholinesterase deficiency No 03/09/25 10:35 You/Your Family Experience No 03/09/25 10:35 fever (hyperthermia) with Relationship Recent Exposure to Contagious No 10/17/24 13:30 Disease Does patient have nerve No 03/09/25 10:35 stimulator Patient instructed to have device shut off --Does patient have Pacemaker or ICD? When Was Last Pacemaker Check QUESTION #4 FULL TEXT: You/Your Family Experience fever (hyperthermia) with Anesthesia Last Oral Intake Last Oral intake: Last Oral Intake NPO since Meds taken in AM with sips of water? Meds patient instructed to take am of surgery PONV PONV - network development coordinator: PONV - network development coordinator Female Yes 03/09/25 10:35 HX of Motion Sickness No 03/09/25 10:35 HX of N/V After Surgery No 03/09/25 10:35 Non-Smoker Yes 03/09/25 10:35 Duration of Surgery greater Yes 03/09/25 10:35 than 60 minutes Number of Risk Factors 3 03/09/25 10:35 PONV Score Moderate Risk 03/09/25 10:35 Height Weight Height Weight: Anesthesia: Height Weight Height 5 ft 9 in 03/07/25 15:04 Respiratory Assessment Respiratory Assessment - network development coordinator: Respiratory Tract Infection Hx - network development coordinator Hx Respiratory Tract Infection No 03/09/25 10:35 STOP Sleep Apnea STOP Sleep Apnea - network development coordinator: STOP Sleep Apnea - network development coordinator Hx Hypertension No 03/09/25 10:35 Hx Sleep Apnea No 03/09/25 10:35 CPAP BIPAP Do you snore loudly (louder No 03/09/25 10:35 than talking or can be heard Do you often feel tired/ No 03/09/25 10:35 fatigued/ sleepy during daytime? Has anyone observed you stop No 03/09/25 10:35 breathing during sleep? STOP Results Negative 03/09/25 10:35 QUESTION #5 FULL TEXT : Do you snore loudly (louder than talking or can be heard through closed doors)? Tobacco Use History Tobacco Use History - network development coordinator: Tobacco Use History - network development coordinator Tobacco Use Smoking Status Never smoker 03/09/25 10:35 Hx Tobacco Use No 03/09/25 10:35 Years Smoking Packs Smoked per Day Smoking Cessation Date was within the last 15 years Hx Smoking Cessation Date Hx Smoking Cessation Counseling Hematologic Medial History Hematologic Hx - network development coordinator: Hematologic Medical Hx - technical architect Hx of Blood Transfusion Yes 03/09/25 10:35 Hx of Transfusion in last 3 No 03/09/25 10:35 Months Date of Last Transfusion (if within last 3 months) Ever experience any problems No 03/09/25 10:35 with transfusion(s)? Specify any problems Hx of Preganancy in last 3 No 03/09/25 10:35 Months Nurse Filling Out Transfusion ROSALEE 03/09/25 10:35 Questions: Date: 03/09/25 03/09/25 10:35 Time: 10:37 03/09/25 10:35 Patient unable to answer at this time (ie. confused, unrespo /Reproduction History /Reproductive History - network development coordinator: /Reproductive Hx- network development coordinator Hx Now No 03/09/25 10:35 Gestational Age (in weeks): EDC: Hx Hx Para Hx Section SAB No 03/09/25 10:35 Active Medications Active Medications: Current Medications Generic Name Dose Route Start Last Admin Trade Name Freq PRN Reason Stop Dose Admin Indocyanine Green 3.75 mg/ N/A 1.5 mls @ 999 mls/hr 03/15/25 11:45 IV 03/15/25 11:46 PREOP [facility] Medical History (Updated 03/09/25 @ 10:45 by Sheila Snow) Anxiety History of IBS History of stress test RUQ abdominal pain Wears glasses History of steroid therapy Back pain Non-smoker Colitis Leg cramps History of pain when walking History of edema Acute diarrhea Neuropathy of right foot Peripheral neuropathy Erythromelalgia Scoliosis Asthma Degenerative disc disease Depression Home Medications ???Medication ???Instructions ???Recorded ???Last Taken ???Type multivitamin 1 tab PO DAILY 06/17/22 Unknown Hi story ascorbate calcium (vitamin C) 500 500 mg PO DAILY 09/24/22 Unknown History mg tablet cholecalciferol (vitamin D3) 1 (more content not included)... Normal [facility] 12 Lead EKGon 03-13-2025 12 Lead EKG [facility] Cardiovascular Services [address] [place] [address] 12 Lead EKG 03/13/25 0950 MR#: [id number] Acct: [id number] Name: MORENO VANESSA Rep #: [id number] : 1965 59 From: Edgardo Lacy MD Attending Dr: Dr. Fernando Ontiveros MD Status: FL E [facility] [place] Ordering Dr: Fernando Ontiveros MD Date: 03/13/25 Location: [facility] [place] Sex: F C Admitted: Test Reason : PREOP Blood Pressure : */* mmHG Vent. Rate : 80 BPM Atrial Rate : 80 BPM P-R Int : 134 ms QRS Dur : 78 ms QT Int : 386 ms P-R-T Axes : 55 17 26 degrees QTcB Int : 445 ms Normal sinus rhythm Low voltage QRS Borderline ECG Confirmed by Edgardo Lacy ([id number]), international editorial producer TRINI LALA ([id number]) on 03/14/2025 10:14:17 AM Referred By: Fernando Ontiveros Confirmed By: Edgardo Lacy 03/14/25 1014 Date Edgardo Lacy MD CC: Dr. Jill Zelaya MD; Dr. Fernando Ontiveros MD Signed Normal [facility] Basic Metabolic Profile (BMP )on 03-13-2025 BUN/CRE 18.2 RATIO Normal 10-20 [facility] Comment on above: Performed By: #### L 500.2500 ####[facility] [address] [place], [address] Calcium [Mass/Vol] 9.3 mg/dL Normal 7.6-11.0 [facility] Comment on above: Performed By: #### L 500.2500 ####[facility] [address] [place], [address] Chloride [Moles/Vol] 102 mmol/L Normal 98-108 [facility] Comment on above: Performed By: #### L 500.2500 ####[facility] [address] [place], [address] CO2 [Moles/Vol] 28.3 mmol/L Normal 21.0-32.0 [facility] Comment on above: Performed By: #### L 500.2500 ####[facility] [address] [place], [address] Creatinine [Mass/Vol] 0.91 mg/dL Normal 0.70-1.20 [facility] Comment on above: Performed By: #### L 500.2500 ####[facility] [address] [place], [address] GAP 10 Normal 5-15 [facility] Comment on above: Performed By: #### L 500.2500 ####[facility] [address] [place], [address] GFR/1.73 sq M.predicted among non-blacks MDRD (S/P/Bld) [Vol rate/Area] 72 mL/min/{1.73_m2} Normal >60 [facility] Comment on above: Result Comment: mL/m in/1.73m2 CKD-EPI Creatinine Equation (2020) Performed By: #### L 500.2500 ####[facility] [address] [place], [address] Glucose [Mass/Vol] 97 mg/dL Normal 70-99 [facility] Comment on above: Performed By: #### L 500.2500 ####[facility] [address] [place], [address] Potassium [Moles/Vol] 4.2 mmol/L Normal 3.3-5.1 [facility] Comment on above: Performed By: #### L 500.2500 ####[facility] [address] [place], [address] Sodium [Moles/Vol] 140 mmol/L Normal 133-145 [facility] Comment on above: Performed By: #### L 500.2500 ####[facility] [address] [place], [address] Urea nitrogen [Mass/Vol] 17 mg/dL Normal 4-19 [facility] Comment on above: Performed By: #### L 500.2500 ####[facility] [address] [place], [place], [address] Surgery Visit Reporton 03-07 Surgery Visit Report [facility] [address] [place] [address] OFFICE VISIT Date of Service: 03/07/25 MR#: [id number] Acct: [id number] Name: MORENO VANESSA Rep #: [id number] : 1965 Provider: Dr. Fernando blakely MD Age/Sex: 59/F Location: [facility] Status: Signed Intake Vital Signs 01/25/25 13:05 03/07/25 15:04 Height 5 ft 9 in 5 ft 9 in Weight: 191 lb 201 lb BMI 28.2 29.7 BP 114/66 105/73 Blood Pressure Location Lt brachial Rt brachial Position Sitting Sitting Respiration 16 18 Pulse 98 70 Pulse Source Monitor Monitor Temp 97.6 F L 97.2 F L Temp Source Temporal Temporal Pulse Oximetry (%) 97 99 Oxygen Delivery Method room air room air Intake Visit Reasons: GALLSTONES Chief Complaint: gallstones Is patient in pain?: Yes Allergies Sulfa (Sulfonamide Antibiotics) Allergy (Mild, Verified 03/07/25 15:04) rash Medications ???Medication ???Instructions ???Recorded ???Confirmed ???Type multivitamin 1 tab PO DAILY 06/17/22 03/07/25 H istory ascorbate calcium (vitamin C) 500 500 mg PO DAILY 09/24/22 03/07/25 History mg tablet cholecalciferol (vitamin D3) 125 125 mcg PO DAILY 09/24/22 03/07/25 History mcg (5,000 unit) tablet flaxseed oil 1,000 mg capsule 1,000 mg PO DAILY 09/24/22 5 History budesonide-formoterol HFA 160 2 puff inhalation .Q4-6 PRN 03/07/25 Rx mcg-4.5 mcg/actuation aerosol shortness of breath or wheezing inhaler (Symbicort) #10.2 grams estradiol 1 mg tablet (Estrace) 1 mg PO DAILY #90 tabs 12/05/24 Rx duloxetine 60 mg capsule,delayed 60 mg PO BID #60 caps 12/07/2401/26 Rx release furosemide 20 mg tablet 20 mg PO BID #60 tabs 12/07/2401/26 Rx lidocaine-prilocaine 2.5 %-2.5 % 1 g topical .QID PRN pain #60 gram s 12/07/24 03/07/25 Rx topical cream potassium chloride 10 mEq 10 meq PO .Nightly #30 tabs 03/07/25 Rx tablet,extended release baclofen 10 mg tablet 10 mg PO QDAY PRN muscle spasm #30 01/16/25 03/07/25 Rx tabs naltrexone 8 mg-bupropion 90 mg 2 tab PO BID 4 weeks #112 tabs 03/07/25 Rx tablet,extended release (Contrave) meloxicam 7.5 mg tablet 7.5 mg PO DAILY #30 tabs 01/25/25 03/07/25 Rx dicyclomine 10 mg capsule 10 mg PO TID #30 caps 03/07/2501/26 Rx PFSH Medical History RUQ abdominal pain Wears glasses History of steroid therapy Back pain Non-smoker Colitis Leg cramps History of pain when walking History of edema Acute diarrhea Neuropathy of right foot Peripheral neuropathy Erythromelalgia Scoliosis Asthma Degenerative disc disease Depression Surgical History Hx of colonoscopy History of surgical procedure H/O tubal ligation S/P laparoscopic assisted vaginal hysterectomy (LAVH) delivery delivered Family History Other Adopted Social History adopted: Yes household members: spouse current occupational status: employed current occupation: [employer] Smoking Status: Never smoker Electronic Cigarette Use: not used alcohol intake: current alcohol intake frequency: holidays/special occasions only details: social substance use type: does not use caffeine: Yes what type of physical activity do you participate in: none seatbelt use: always do you feel safe at home: Yes additional social history: [place]- [facility] HPI HPI: The patient is a 59-year-old female who is being seen today for right upper quadrant pain and a gallstone. She has been having periodic right upper quadrant pain off and on for several weeks. This pain is mostly in the right upper quadrant but also radiates to the back. She has had some nausea and some bloating as well. No vomiting. No fevers or chills. She underwent an ultrasound recently that showed about a 1 cm gallstone in the neck of the gallbladder. She presents today for evaluation. She denies any current symptoms ROS General General: Yes fatigue; No weight change, appetite, colon cancer or breast cancer HEENT HEENT: No difficulty swallowing, eye injury, eye surgery, swollen glands or hoarseness Endo Endocrine: No thyroid disease, diabetes mellitus, thyroid cancer, Hair loss, heat intolerance or cold intolerance Skin Skin: No rash or changing moles Musc Musculoskeletal: Yes back problems; No arthritis, rheumatoid arthritis, gout or joint pain Cardio Cardiovascular: No murmur, pacemaker, heart disease, atrial fibrillation, high blood pressure, heart attack, heart stent, palpitations, shortness of (more content not included)... Normal [facility] Gallbladderon 03-06-2025 Gallbladder [facility] Imaging Services [address] [place] [address] Gallbladder MR#: [id number] Acct: [id number] Name: MORENO VANESSA Rep #: [id number] : 1965 F 59 From: Sidney Desai MD PCP: Dr. Jill Zelaya MD Status: REG CLI Study: Gallbladder Date of Exam: 03/06/25 Exam# [id number] Ordering Dr: Fatemeh Urbina MD PROCEDURE: GALLBLADDER 03/06/2025 REASON FOR EXAM: RUQ PAIN COMPARISON: No relevant prior. FINDINGS: Liver: Normal in size. 15.4 cm in length sagittally. Normal parenchymal echogenicity and echotexture. No ductal dilatation. Hepatopetal blood flow. Gallbladder: A solitary gallstone measuring 1.0 x 1.2 x 0.8 cm lodged in the neck. No sludge. No wall thickening. No pericholecystic edema. Common bile duct: 0.5 cm. . Pancreas: Normal. Right kidney: Size measures 10.5 x 5.5 x 4.5 cm. Cortex measures 1.2 cm. US/Gallbladder IMPRESSION: Cholelithiasis. A solitary gallstone is lodged in the gallbladder neck. Reading Location: [place] [address] CC: Dr. Jill Zelaya MD; Dr. Fatemeh Urbina MD Technical Architect: Signed [facility] Internal Medicine Office Vis sofi 01-24-2025 Internal Medicine Office Visit [facility] [address] [place] [address] [place] [address] OFFICE VISIT Date of Service: 01/25/25 MR#: [id number] Acct: [id number] Name: MORENO VANESSA Rep #: [id number] : 1965 Provider: Dr. Jill laughlin MD Age/Sex: 59/F Location[place] [facility] Status: Signed Intake Vital Signs 08/03/24 13:31 12/07/24 12:58 01/19/25 12:26 01/25/25 13:05 Height 5 ft 9 in 5 ft 9 in 5 ft 9 in 5 ft 9 in Weight: 191 lb BMI 28.2 BP 114/66 Blood Pressure Location Lt brachial Position Sitting Respiration 16 Pulse 98 Pulse Source Monitor Temp 97.6 F L Temp Source Temporal Pulse Oximetry (%) 97 Oxygen Delivery Method room air Intake Visit Reasons: 6 M FU Chief Complaint: Service Developer Required: No Is patient in pain?: No Allergies Sulfa (Sulfonamide Antibiotics) Allergy (Mild, Verified 01/25/25 12:59) rash Medications ???Medication ???Instructions ???Recorded ???Confirmed ???Type multivitamin 1 tab PO DAILY 06/17/22 01/25/25 H istory ascorbate calcium (vitamin C) 500 500 mg PO DAILY 09/24/22 01/25/25 History mg tablet cholecalciferol (vitamin D3) 125 125 mcg PO DAILY 09/24/22 01/25/25 History mcg (5,000 unit) tablet flaxseed oil 1,000 mg capsule 1,000 mg PO DAILY 09/24/22 5 History budesonide-formoterol HFA 160 2 puff inhalation .Q4-6 PRN 01/25/25 Rx mcg-4.5 mcg/actuation aerosol shortness of breath or wheezing inhaler (Symbicort) #10.2 grams estradiol 1 mg tablet (Estrace) 1 mg PO DAILY #90 tabs 12/05/24 Rx duloxetine 60 mg capsule,delayed 60 mg PO BID #60 caps 12/07/24 Rx release furosemide 20 mg tablet 20 mg PO BID #60 tabs 12/07/24 Rx lidocaine-prilocaine 2.5 %-2.5 % 1 g topical .QID PRN pain #60 gram s 12/07/24 01/25/25 Rx topical cream potassium chloride 10 mEq 10 meq PO .Nightly #30 tabs 01/25/25 Rx tablet,extended release baclofen 10 mg tablet 10 mg PO QDAY PRN muscle spasm #30 01/16/25 01/25/25 Rx tabs naltrexone 8 mg-bupropion 90 mg 2 tab PO BID 4 weeks #112 tabs 01/25/25 Rx tablet,extended release (Contrave) meloxicam 7.5 mg tablet 7.5 mg PO DAILY #30 tabs 01/25/25 01/25/25 Rx Nurse's Note: States Dr. Zelaya used to give meloxicam and would like to restart for general aches and pains. [facility] Medical History Wears glasses History of steroid therapy Back pain Non-smoker Colitis Leg cramps History of pain when walking History of edema Acute diarrhea Neuropathy of right foot Peripheral neuropathy Erythromelalgia Scoliosis Asthma Degenerative disc disease Depression Surgical History Hx of colonoscopy History of surgical procedure H/O tubal ligation S/P laparoscopic assisted vaginal hysterectomy (LAVH) delivery delivered Family History Other Adopted Social History (Updated 01/25/25 @ 13:[address] Jill Zelaya MD) adopted: Yes household members: spouse current occupational status: employed current occupation: [employer] Smoking Status: Never smoker Electronic Cigarette Use: not used alcohol intake: current alcohol intake frequency: holidays/special occasions only details: social substance use type: does not use caffeine: Yes what type of physical activity do you participate in: none seatbelt use: always do you feel safe at home: Yes additional social history: [place]- Questionnaire PQH-9 BMS Over the last 2 weeks, how often have you been bothered by any of the following problems? 1. Little interest or pleasure in doing things: not at all 2. Feeling down, depressed, or hopeless: not at all 3. Trouble falling or staying asleep, or sleeping too much: not at all 4. Feeling tired or having little energy: not at all 5. Poor appetite or overeating: not at all 6. Feeling bad about yourself - or that you are a failure or have let yourself and your family down: not at all 7. Trouble concentrating on things, such as reading the newspaper or watching television: not at all 8. Moving or speaking so slowly that other people could have noticed? - Or the opposite - being so fidgety or restless that you have been moving around a lot more than usual: not at all 9. Thoughts that you would be better off or of hurting yourself in some way: not at all Total score: 0 If you checked off any problems, how difficult have these problems made it for you to do your work, take care of things at home, or get along with other people?: not difficult at all Source: Developed by Drs. Vivek Palomino, Marni Mauricio, Alonso Nicholas and colleagues, with an educational (more content not included)... Normal [facility] Knitter Machine Office Visit Reporton 01-19-2025 Knitter Machine Office Visit Report [facility] [address], [address] [place] [address] OFFICE VISIT Date of Service: 01/19/25 MR#: [id number] Acct: [id number] Name: MORENO VANESSA Rep #: [id number] : 1965 Provider: Dr. Yuli rendon MD Age/Sex: 59/F Location: [facility] [place] Status: Signed Intake Vital Signs 11/14/24 11:53 12/07/24 12:58 01/19/25 12:24 01/19/25 12:26 Height 5 ft 9 in 5 ft 9 in 5 ft 9 in 5 ft 9 in Weight: 200 lb 191 lb 2 oz BMI 29.5 28.2 BP 104/80 92/57 L Blood Pressure Location Lt brachial Position Sitting Respiration 17 Pulse 99 Pulse Source Monitor Temp 97.8 F Pulse Oximetry (%) 97 Oxygen Delivery Method room air Intake Visit Reasons: Weight Management Service Developer Required: No Is patient in pain?: No Allergies Sulfa (Sulfonamide Antibiotics) Allergy (Mild, Verified 01/19/25 12:24) rash Medications ???Medication ???Instructions ???Recorded ???Confirmed ???Type multivitamin 1 tab PO DAILY 06/17/22 01/19/25 H istory ascorbate calcium (vitamin C) 500 500 mg PO DAILY 09/24/22 01/19/25 History mg tablet cholecalciferol (vitamin D3) 125 125 mcg PO DAILY 09/24/22 01/19/25 History mcg (5,000 unit) tablet flaxseed oil 1,000 mg capsule 1,000 mg PO DAILY 09/24/22 5 History budesonide-formoterol HFA 160 2 puff inhalation .Q4-6 PRN 01/19/25 Rx mcg-4.5 mcg/actuation aerosol shortness of breath or wheezing inhaler (Symbicort) #10.2 grams estradiol 1 mg tablet (Estrace) 1 mg PO DAILY #90 tabs 12/05/24 Rx duloxetine 60 mg capsule,delayed 60 mg PO BID #60 caps 12/07/24 Rx release furosemide 20 mg tablet 20 mg PO BID #60 tabs 12/07/24 Rx lidocaine-prilocaine 2.5 %-2.5 % 1 g topical .QID PRN pain #60 gram s 12/07/24 01/19/25 Rx topical cream potassium chloride 10 mEq 10 meq PO .Nightly #30 tabs 01/19/25 Rx tablet,extended release baclofen 10 mg tablet 10 mg PO QDAY PRN muscle spasm #30 01/16/25 01/19/25 Rx tabs naltrexone 8 mg-bupropion 90 mg 2 tab PO BID 4 weeks #112 tabs 01/19/25 Rx tablet,extended release (Contrave) Last Menstrual Period: 02/14/08 Zika: Zika virus screening: Negative : No PFSH PFSH Medical History Wears glasses History of steroid therapy Back pain Non-smoker Colitis Leg cramps History of pain when walking History of edema Acute diarrhea Neuropathy of right foot Peripheral neuropathy Erythromelalgia Scoliosis Asthma Degenerative disc disease Depression Surgical History Hx of colonoscopy History of surgical procedure H/O tubal ligation S/P laparoscopic assisted vaginal hysterectomy (LAVH) delivery delivered Family History Other Adopted Social History adopted: Yes household members: spouse current occupational status: employed current occupation: [employer] Smoking Status: Never smoker Electronic Cigarette Use: not used alcohol intake: current alcohol intake frequency: holidays/special occasions only details: social substance use type: does not use caffeine: Yes what type of physical activity do you participate in: none seatbelt use: always do you feel safe at home: Yes additional social history: [place]- History 2 Elective abortions Hx Para 2 Spontaneous abortions Hx # Term Pregnancies Ectopic pregnancies Hx # Pregnancies Multiple births # of living children Past Pregnancies Del. Date Name GA/Weeks Outcome Route Bth Weight Gen Labor Lgth Anesthesia Del Locatn Provider FOB Unknown 1990 Giselle Reynoso live - full term Unknown 1979 Ghanshyam live - full term Male HPI Weight Management Details: MORENO VANESSA is a 59 year old Female presenting for a weight management follow up. she feels like she has lost momentum but is still doing well overall, cravings are upf. she hasn't been tracking as much. she dneies any significant side effects but does notice the generic doesn't work as well as the brand name medication. Female Reproductive History Last Menstrual Period: 02/14/08 ROS Const Reports as per HPI, Denies difficulty sleeping, Denies excessive sweating, Denies fatigue (new onset severe) and Denies fever(s) Eyes Denies change in vision and Denies diplopia ENT Denies dizziness Card Denies chest pain, Denies dyspnea, Denies dyspnea on exertion, Denies palpitations and Denies rapid heart rate Resp Denies dyspnea and Denies dyspnea on exertion GI Re (more content not included)... Normal [facility] Anion gap in Serum or Plasma Ordered By: David David on 12-27-2024 Anion gap [Moles/Vol] 10 mmol/L 5-15 [facility] BUN/creatinine ratioOrdered By: David David on 12-27-2024 Urea nitrogen/Creatinine [Mass ratio] 17.1 mg/mg 10- [facility] Basic Metabolic Profile (BMP )on 12-27-2024 BUN/CRE 17.1 RATIO Normal 10-20 [facility] Comment on above: Performed By: #### L 500.2500 #### [facility] [address] [place], [address] Calcium [Mass/Vol] 8.9 mg/dL Normal 7.6-11.0 [facility] Comment on above: Performed By: #### L 500.2500 #### [facility] [address] [place], [address] Chloride [Moles/Vol] 104 mmol/L Normal 98-108 [facility] Comment on above: Performed By: #### L 500.2500 #### [facility] [address] [place], [address] CO2 [Moles/Vol] 23.4 mmol/L Normal 21.0-32.0 [facility] Comment on above: Performed By: #### L 500.2500 #### [facility] [address] [place], [address] Creatinine [Mass/Vol] 0.91 mg/dL Normal 0.70-1.20 [facility] Comment on above: Performed By: #### L 500.2500 #### [facility] [address] [place], [address] GAP 10 Normal 5-15 [facility] Comment on above: Performed By: #### L 500.2500 #### [facility] [address] [place], [address] GFR/1.73 sq M.predicted among non-blacks MDRD (S/P/Bld) [Vol rate/Area] 72 mL/min/{1.73_m2} Normal >60 [facility] Comment on above: Result Comment: mL/m in/1.73m2 CKD-EPI Creatinine Equation (2020) Performed By: #### L 500.2500 #### [facility] [address] [place], [address] Glucose [Mass/Vol] 144 mg/dL High 70-99 [facility] Comment on above: Performed By: #### L 500.2500 #### [facility] [address] [place], [address] Potassium [Moles/Vol] 4.0 mmol/L Normal 3.3-5.1 [facility] Comment on above: Performed By: #### L 500.2500 #### [facility] [address] [place], [address] Sodium [Moles/Vol] 138 mmol/L Normal 133-145 [facility] Comment on above: Performed By: #### L 500.2500 #### [facility] [address] [place], [address] Urea nitrogen [Mass/Vol] 16 mg/dL Normal 4-19 [facility] Comment on above: Performed By: #### L 500.2500 #### [facility] [address] [place], [address] Carbon dioxide, total [Moles /volume] in Central venous bloodOrdered By: David David on 12-27-2024 CO2 [Moles/Vol] 23.4 mmol/L 21.0-32.0 [facility] Chloride assayOrdered By: Ra jo-ann David on 12-27-2024 Chloride [Moles/Vol] 104 mmol/L 98-108 [facility] GFR/1.73 sq M.predicted alexa g non-blacks MDRD (S/P/Bld) [Vol rate/Area]Ordered By: David David on 12-27-2024 Estimated GFR (MDRD) Non-Af Amer 72 >60 [facility] Comment on above: mL/min/1.73m2 CKD-EP I Creatinine Equation (2020) Glomerular filtration rate ( GFR) estimation/1.73 sq m using serum, plasma, or whole bOrdered By: David David on 12-27-2024 GFR/1.73 sq M.predicted among non-blacks MDRD (S/P/Bld) [Vol rate/Area] 72 mL/min/{1.73_m2} >60 [facility] Comment on above: mL/min/1.73m2 CKD-EP I Creatinine Equation (2020) Potassium (Unsp spec) [Mass/ Vol]Ordered By: David David on 12-27-2024 Potassium [Moles/Vol] 4.0 mmol/L 3.3-5.1 [facility] Potassium measurement (mass/ volume)Ordered By: David David on 12-27-2024 Potassium (Unsp spec) [Mass/Vol] 4.0 mmol/L 3.3-5.1 [facility] Serum creatinine measurement (mass/volume)Ordered By: David David on 12-27-2024 Creatinine [Mass/Vol] 0.91 mg/dL 0.70-1.20 [facility] Serum glucose measurement (m ass/volume)Ordered By: David David on 12-27-2024 Glucose [Mass/Vol] 144 mg/dL High 70-99 [facility] Serum or plasma calcium baljit urement (mass/volume)Ordered By: David David on 12-27-2024 Calcium [Mass/Vol] 8.9 mg/dL 7.6-11.0 [facility] Serum or plasma urea nitroge n measurement (mass/volume)Ordered By: David David on 12-27-2024 Urea nitrogen [Mass/Vol] 16 mg/dL 4-19 [facility] Sodium levelOrdered By: Tamika David on 12-27-2024 Sodium [Moles/Vol] 138 mmol/L 133-145 [facility] Neurology Visit Reporton Neurology Visit Report [facility] [address], [address] [place] [address] OFFICE VISIT Date of Service: 12/07/24 MR#: [id number] Acct: [id number] Name: MORENO VANESSA Rep #: [id number] : 1965 Provider: Dr. David galicia MD Age/Sex: 59/F Location[place] [facility] Status: Signed HPI [facility] Chief Complaint: Details: Interim History: Moreno returns for follow-up visit. She has a history of asthma. Since around 2019, she has been experiencing episodes of erythema affecting the toes of both feet and associated numbness and intermittent stinging pain in the feet. The erythema in her toes is exacerbated by standing or walking or when she is in hot ambient temperatures. Her neuropathic pain is worse at night. She experiences edema in the feet if she sits for extended periods of time. The edema in the lower extremities has diminished moderately following initiation of furosemide. She has had chronic low back pain since she was in her 20s. She also experiences lumbar region muscle spasms. She experience cramps in the legs. She had previously seen a panel edge painter, Dr. Gold. She was subsequently seen at the [facility] and has received lumbar radiofrequency ablation as well as SI joint injections and these have been of benefit. She has lumbar and multilevel degenerative joint/disc disease. She has seen an orthopedic surgeon, Dr. Urban, as well as an orthopedic surgeon at the [facility] and surgical intervention for her lumbar pathology was not felt to be warranted. She is performing exercises on her own. She now states that her low back pain has resolved. She is no longer using celecoxib. She has used baclofen infrequently. She denied having weakness in the legs. She has been diagnosed with erythromelalgia. She was evaluated for this at the [facility] was prescribed cetirizine and this has been of some benefit. She previously took gabapentin for her lower extremity neuropathic pain and this was not of benefit. Pregabalin 100 mg daily was not of significant benefit for her neuropathic pain. Duloxetine is of slight benefit for her neuropathic pain. EMG/nerve conduction studies of the lower extremities reveal a sensorimotor polyneuropathy. Bilateral ABIs reveal normal ankle-brachial index in both legs and bilateral lower extremity small vessel disease versus vasoconstriction. She has depression for which she takes bupropion and duloxetine and these have been of benefit. She has also been prescribed naltrexone for her neuropathic pain. She no longer uses fluoxetine. EMLA cream has been of benefit for her neuropathic pain. She takes naltrexone and feels this is of some benefit for her pain. Physical Exam: Neuro: The patient is awake and alert and responds appropriately; speech is fluent Heart: Regular rate and rhythm Extremities: Mild pitting edema is noted at both ankles; left dorsalis pedis pulse is +2; right posterior tibial and right dorsalis pedis pulses are nonpalpable; the feet are erythematous Supplemental Info Bilateral lower extremity EMG/nerve conduction studies (07/23/2022): In the right lower limb: - The peroneal (fibular) motor distal latency is normal. The amplitude is moderately decreased. There is mild slowing of the conduction velocity in the calf and around the fibular head. - The tibial motor distal latency is normal. The amplitude is moderately decreased. There is mild slowing of the conduction velocity in the calf. - The sural sensory latency is normal. The amplitude is severely decreased. - Superficial peroneal (fibular) sensory response is unobtainable. - The peroneal (fibular) F wave response is unobtainable. - There is moderate slowing of the tibial minimum F-wave latency. - Needle electromyography is abnormal and reveals mildly reduced recruitment of motor units of normal amplitude but increased duration and the first dorsal interosseous. There is no active denervation. All other muscles of the right lower limb that were examined, including the lumbosacral paraspinals are normal. In the left lower limb: - There is mild slowing of the peroneal (fibular) motor conduction velocity in the calf. - The sural sensory response is unobtainable. - The superficial peroneal (fibular) sensory response is unobtainable. - There is moderate slowing of the peroneal (fibular) minimum F-wave latency. Lumbar x-rays (10/27/2023): FINDINGS: Normal lumbar lordosis. Severe dextro scoliosis. There is a normal alignment of the vertebrae. Normal vertebral bodies and endplates. Multilevel disc space narrowing and endplate spurring. The soft tissue structures are unremarkable. No significant change since prior exam IMPRESSION: Scoliosis and degenerative changes. No acute fracture or other significant bony pathology. Pelvic and right hip x-rays (10/27/2023): Normal x-ray examination of the pelvis and (more content not included)... Normal [facility] Office Visit Reporton 11-14-2024 Knitter Machine Office Visit Report [address], [address] [place] [address] OFFICE VISIT Date of Service: 11/14/24 MR#: [id number] Acct: [id number] Name: MORENO VANESSA Rep #: [id number] : 1965 Provider: Dr. Yuli rendon MD Age/Sex: 59/F Location: [facility] [place] Status: Signed Intake Vital Signs 10/17/24 11:47 10/17/24 13:30 11/14/24 11:49 11/14/24 11:53 Height 5 ft 9 in 5 ft 9 in 5 ft 9 in 5 ft 9 in Weight: 197 lb 2 oz BMI 29.1 BP 115/73 Pulse 93 Pulse Source Monitor Intake Visit Reasons: 1 M FU Service Developer Required: No Is patient in pain?: No Allergies Sulfa (Sulfonamide Antibiotics) Allergy (Mild, Verified 11/14/24 11:49) rash Medications ???Medication ???Instructions ???Recorded ???Confirmed ???Type multivitamin 1 tab PO DAILY 06/17/22 11/14/24 H istory ascorbate calcium (vitamin C) 500 500 mg PO DAILY 09/24/22 11/14/24 History mg tablet cholecalciferol (vitamin D3) 125 125 mcg PO DAILY 09/24/22 11/14/24 History mcg (5,000 unit) tablet flaxseed oil 1,000 mg capsule 1,000 mg PO DAILY 09/24/22 5 History budesonide-formoterol HFA 160 2 puff inhalation .Q4-6 PRN 11/14/24 Rx mcg-4.5 mcg/actuation aerosol shortness of breath or wheezing inhaler (Symbicort) #10.2 grams furosemide 20 mg tablet 20 mg PO QAM #30 tabs 08/17/2408/28 Rx lidocaine-prilocaine 2.5 %-2.5 % 1 g topical .QID PRN pain #30 gram s 08/17/24 11/14/24 Rx topical cream potassium chloride 10 mEq 10 meq PO .Nightly #30 tabs 11/14/24 Rx tablet,extended release celecoxib 100 mg capsule 100 mg PO BID #60 caps 08/30/24 Rx duloxetine 60 mg capsule,delayed 60 mg PO BID #60 caps 10/02/2408/28 Rx release naltrexone 50 mg tablet 25 mg (1/2 x 50 mg) PO .bid with 0 10/17/24 11/14/24 Rx meals #30 tabs baclofen 10 mg tablet 10 mg PO QDAY PRN muscle spasm #30 11/06/24 11/14/24 Rx tabs bupropion HCl 100 mg tablet,12 hr 100 mg PO BID #60 ea 11/14/2408/28 Rx sustained-release (Wellbutrin SR) Last Menstrual Period: 02/14/08 Zika: Zika virus screening: Negative : No PFSH PFSH Medical History Wears glasses History of steroid therapy Back pain Non-smoker Colitis Leg cramps History of pain when walking History of edema Acute diarrhea Neuropathy of right foot Peripheral neuropathy Erythromelalgia Scoliosis Asthma Degenerative disc disease Depression Surgical History Hx of colonoscopy History of surgical procedure H/O tubal ligation S/P laparoscopic assisted vaginal hysterectomy (LAVH) delivery delivered Family History Other Adopted Social History adopted: Yes household members: spouse current occupational status: employed current occupation: [employer] Smoking Status: Never smoker Electronic Cigarette Use: not used alcohol intake: current alcohol intake frequency: holidays/special occasions only details: social substance use type: does not use caffeine: Yes what type of physical activity do you participate in: none seatbelt use: always do you feel safe at home: Yes additional social history: Albaro- History 2 Elective abortions Hx Para 2 Spontaneous abortions Hx # Term Pregnancies Ectopic pregnancies Hx # Pregnancies Multiple births # of living children Past Pregnancies Del. Date Name GA/Weeks Outcome Route Bth Weight Infant Gen Labor Lgth Anesthesia Del Locatn Provider FOB Unknown 1990 EdgardoGiselle live - full term Unknown 1979 Ghanshyam live - full term Male HPI 1 M FU Details: MORENO VANESSA is a 59 year old Female presenting for depression and weight management follow up. she has lost 5% of her body weight in 1 month, has reduce food chatter noise has been tracking daily with the Cynvec darion, doing well with balanced MANAGER [employer]OUNT with fruits veggies and protein, feeling really good and positive about the changes she is making. see weight management questionnaire answers for additional HPI details. all information was reviewed with the patient and confirmed, relevant counseling provided, and any changes to treatment plan made. Female Reproductive History Last Menstrual Period: 02/14/08 ROS Const Reports as per HPI, Denies difficulty sleeping, Denies excessive sweating, Denies fatigue (new onset severe) and Denies fever(s) Eyes Denies change in vision and Denies diplopia ENT Denies dizziness Card Denies chest pain, Denies dyspnea, Denies dyspn (more content not included)... Normal [facility] Knitter Machine Office Visit Reporton 10-17-2024 Knitter Machine Office Visit Report [facility] [address], [address] [place] [address] OFFICE VISIT Date of Service: 10/17/24 MR#: [id number] Acct: [id number] Name: MORENO VANESSA Rep #: [id number] : 1965 Provider: Dr. 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 Is patient in pain?: No Allergies Sulfa (Sulfonamide Antibiotics) Allergy (Mild, Verified 10/17/24 11:42) rash Medications ???Medication ???Instructions ???Recorded ???Confirmed ???Type multivitamin 1 tab PO DAILY 06/17/22 10/17/24 History ascorbate calcium (vitamin C) 500 500 mg PO DAILY 09/24/22 10/17/24 History mg tablet cholecalciferol (vitamin D3) 125 125 mcg PO DAILY 09/24/22 10/17/24 History mcg (5,000 unit) tablet flaxseed oil 1,000 mg capsule 1,000 mg PO DAILY 09/24/22 10/17/24 History budesonide-formoterol HFA 160 2 puff inhalation .Q4-6 PRN 11/05/23 10/17/24 Rx mcg-4.5 mcg/actuation aerosol shortness of breath or wheezing inhaler (Symbicort) #10.2 grams topiramate 25 mg tablet (Topamax) 25 mg PO BID PRN WEIGHT LOSS 07/20/24 10/17/24 History furosemide 20 mg tablet 20 mg PO QAM #30 tabs 08/17/24 10/17/24 Rx lidocaine-prilocaine 2.5 %-2.5 % 1 g topical .QID PRN pain #30 grams 08/17/24 10/17/24 Rx topical cream potassium chloride 10 mEq 10 meq PO .Nightly #30 tabs 08/17/24 10/17/24 Rx tablet,extended release celecoxib 100 mg capsule 100 mg PO BID #60 caps 08/30/24 10/17/24 Rx baclofen 10 mg tablet 10 mg PO QDAY PRN muscle spasm #30 09/28/24 10/17/24 Rx tabs duloxetine 60 mg capsule,delayed 60 mg PO BID #60 caps 10/02/24 10/17/24 Rx release bupropion HCl 75 mg tablet 75 mg PO QDAY #30 tabs 10/10/24 10/17/24 Rx naltrexone 50 mg tablet 25 mg (1/2 x 50 mg) PO .bid with 10/17/24 10/17/24 Rx meals #30 tabs Is last menstrual period known: No Post menopausal: Yes Patient : No : No PFSH Medical History Wears glasses History of steroid therapy Back pain Non-smoker Colitis Leg cramps History of pain when walking History of edema Acute diarrhea Neuropathy of right foot Peripheral neuropathy Erythromelalgia Scoliosis Asthma Degenerative disc disease Depression Surgical History Hx of colonoscopy History of surgical procedure H/O tubal ligation S/P laparoscopic assisted vaginal hysterectomy (LAVH) delivery delivered Family History Other Adopted Social History adopted: Yes household members: spouse current occupational status: employed current occupation: [employer] Smoking Status: Never smoker Electronic Cigarette Use: not used alcohol intake: current alcohol intake frequency: holidays/special occasions only details: social substance use type: does not use caffeine: Yes what type of physical activity do you participate in: none seatbelt use: always do you feel safe at home: Yes additional social history: Albaro- History 2 Elective abortions Hx Para 2 Spontaneous abortions Hx # Term Pregnancies Ectopic pregnancies Hx # Pregnancies Multiple births # of living children Past Pregnancies Del. Date Name GA/Weeks Outcome Route Bth Weight Infant Gen Labor Lgth Anesthesia Del Locatn Provider FOB Unknown 1990 Giselle Reynoso live - full term Unknown 1979 Ghanshyam live - full term Male HPI Encounter for routine gynecological examination Details: MORENO VANESSA is a 58 year old who presents for annual exam. has had weight gain over the last year, history of taking phentermine with good success, but also on other medicaitons. struggles with food noise hunger, satiety, cravings. Last PAP: hyst History of abnormal PAP: Last mammogram: 07/13/2024 - normal History of abnormal mammogram: no Colon cancer screenin07/2024 Other preventative health care screenings: Labs done last week - normal ROS Const Constitutional: Reports as per HPI; Denies fatigue, increased appetite, poor appetite, weight gain or weight loss Cardio Card: Denies chest pain Resp Resp: Denies cough or dyspnea GI GI: Reports as per HPI; (more content not included)... Normal [facility] Nardin Lambda Light Chainson 08-18-2024 FR KAPPA LT CHN 15.1 mg/L Normal 3.3-19.4 [facility] Comment on above: Order Comment: Test( s) 284470-Exl. B1, Whole Bloodwas developed and its performance characteristicsdetermined by [facility]. It has not been cleared or approvedby the Food and Drug Administration. Performed By: #### L 503.0105, L500.4050, L501.9985, L3100.5450, L506.0250, L3130.0010, L501.9520, L101.9900, L100.0500, L501.5200, L3300.8000 ####[facility] [address] [place], [address] FR LAMBDA LT CH 13.5 mg/L Normal 5.7-26.3 [facility] Comment on above: Order Comment: Test( s) [id number]-Lvr. B1, Whole Bloodwas developed and its performance characteristicsdetermined by [facility]. It has not been cleared or approvedby the Food and Drug Administration. Performed By: #### L 503.0105, L500.4050, L501.9985, L3100.5450, L506.0250, L3130.0010, L501.9520, L101.9900, L100.0500, L501.5200, L3300.8000 ####[facility] [address] [place], [place], [id number] KAPPA/LAMBDA % 1.12 Normal 0.26-1.65 [facility] Comment on above: Order Comment: Test( s) [id number]-Dlg. B1, Whole Bloodwas developed and its performance characteristicsdetermined by [facility]. It has not been cleared or approvedby the Food and Drug Administration. Performed By: #### L 503.0105, L500.4050, L501.9985, L3100.5450, L506.0250, L3130.0010, L501.9520, L101.9900, L100.0500, L501.5200, L3300.8000 ####[facility] [address] [place], [place], [address] Vitamin B1, Thiamineon 08-18 VIT B1 THIAMINE 149.6 nmol/L Normal 66.5-200.0 [facility] Comment on above: Order Comment: Test( s) [id number]-Sth. B1, Whole Bloodwas developed and its performance characteristicsdetermined by [facility]. It has not been cleared or approvedby the Food and Drug Administration. Result Comment: Perf ormed at: CB - [facility] [place] [address] [place], [place] [id number] Network Admin: Jeff Rodriguez PhD, Phone: [phone] Performed at: - [facility] [id number] Network Admin: Kd Hannon MD, Phone: [phone] Performed By: #### L 503.0105, L500.4050, L501.9985, L3100.5450, L506.0250, L3130.0010, L501.9520, L101.9900, L100.0500, L501.5200, L3300.8000 ####[facility] [address] [place], [address] Neurology Visit Reporton Neurology Visit Report [facility] [address] [facility], [address] [place] [address] OFFICE VISIT Date of Service: 08/17/24 MR#: [id number] Acct: [id number] Name: MORENO VANESSA Rep #: [id number] : 1965 Provider: Dr. David galicia MD Age/Sex: 58/F Location: [facility] Status: Signed with Addenda ADDENDUM by Dr. David David MD on 10/09/24 at 1655 Addendum Addendum (10/09/2024): Per the patient's request bupropion XL 150 mg daily will be reduced to bupropion 75 mg daily. 10/09/24 1655 Date David David MD cc: Dr. Jill Zelaya MD * Signed ADDENDUM by Dr. David David MD on 10/02/24 at 1718 HPI Details: MORENO VANESSA, is a 58 F who presents to the office today for Assessment and Plan Assessment and Plan (1) Polyneuropathy: Status: Acute (2) Edema of lower extremity: Status: Acute (3) Depression: Status: Acute Medications: New lidocaine-prilocaine 2.5-2.5 % 1 g topical .QID PRN 30 grams 4RF pain furosemide 20 mg PO QAM 30 tabs 4RF potassium chloride ER 10 mEq PO QDAY 30 tabs 4RF potassium chloride ER 10 mEq PO .Nightly 30 tabs 4RF Changed From duloxetine Begin after completing one week course of duloxetine 30mg nightly. 60 mg PO QHS 30 caps 5RF To duloxetine 60 mg PO QHS 30 caps 5RF Addendum Addendum (10/02/2024): The patient is continuing to experience prominent neuropathic pain in her feet. Duloxetine will be increased to 60 mg twice daily. Fluoxetine will be discontinued. 10/02/24 232 Date David David MD cc: Dr. Jill Zelaya MD * Signed HPI HPI Chief Complaint: Establish Care Details: Interim History: Moreno returns for follow-up visit. She has a history of asthma. Since around 2019, she has been experiencing episodes of erythema affecting the toes of both feet and associated numbness and intermittent stinging pain in the feet. The erythema in her toes is exacerbated by standing or walking and also in hot ambient temperature. Her neuropathic pain is worse at night. She experiences swelling in the feet if she sits for extended periods of time. She has had chronic low back pain since she was in her 20s. She also experiences lumbar region muscle spasms. She experience cramps in the legs. She had previously seen a panel edge painter, Dr. Gold. She is now being seen at the [facility] and has received lumbar radiofrequency ablation as well as SI joint injections and these have been of benefit. She has lumbar and multilevel degenerative joint/disc disease. She has seen an orthopedic surgeon, Dr. Urban, as well as an orthopedic surgeon at the [facility] and surgical intervention for her lumbar pathology was not felt to be warranted. Baclofen and celecoxib have been of benefit. She denied having weakness in the legs. She has been diagnosed with erythromelalgia and is seeing a physician at the [facility] for this and has been prescribed cetirizine and this has been of some benefit. She previously took gabapentin for her lower extremity neuropathic pain and this was not of benefit. Pregabalin 100 mg daily was not of significant benefit for her neuropathic pain and was discontinued. EMG/nerve conduction studies of the lower extremities reveal a sensorimotor polyneuropathy. Bilateral ABIs reveal normal ankle-brachial index in both legs and bilateral lower extremity small vessel disease versus vasoconstriction. She has depression for which she takes bupropion XL. Fluoxetine has been of benefit for her irritability. Duloxetine was initiated earlier in 2023. She reports having mild hot flashes as a side effect of duloxetine however she wishes to continue this medication in combination with her low-dose of fluoxetine. Duloxetine has been of benefit for her depression but not for her neuropathic pain. Physical Exam: Neuro: The patient is awake and alert and responds appropriately; speech is fluent; motor strength is 5/5 in the foot dorsiflexors bilaterally Heart: Regular rate and rhythm Supplemental Info Bilateral lower extremity EMG/nerve conduction studies (07/23/2022): In the right lower limb: - The peroneal (fibular) motor distal latency is normal. The amplitude is moderately decreased. There is mild slowing of the conduction velocity in the calf and around the fibular head. - The tibial motor distal latency is normal. The amplitude is moderately decreased. There is mild slowing of the conduction velocity in the calf. - The sural sensory latency is normal. The amplitude is severely decreased. - Superficial peroneal (fibular) sensory response is unobtainable. - The peroneal (fibular) F wave response is unobtainable. - There is moderate slowing of the tibial minimum F-wave latency. - Needle electromyo (more content not included)... Normal [facility] SYLVIE w/ Reflex Mult Confirmon 08-16-2024 SYLVIE,DIRECT Negative Normal Negative [facility] Comment on above: Result Comment: Perf ormed at: - [facility] [address] [id number] Network Admin: Jeff Rodriguez PhD, Phone: [phone] Performed By: #### L 419.8514, Y200.5398, P701.2986, L3100.3301, L506.0250, L3130.0010, L501.9520, L101.9900, L100.0500, L501.5200, L3300.8000 ####[facility] [address] [place], [place], [id number] CBC-Complete Blood Cnt No Di ffon 08-15-2024 Erythrocyte distribution width (RBC) [Ratio] 12.7 % Normal 11.6-14.6 [facility] Comment on above: Performed By: #### L 503.0105, L500.4050, L501.9985, L3100.5450, L506.0250, L3130.0010, L501.9520, L101.9900, L100.0500, L501.5200, L3300.8000 ####[facility] [address] [place], [address] Hematocrit (Bld) [Volume fraction] 40.8 % Normal 37-47 [facility] Comment on above: Performed By: #### L 503.0105, L500.4050, L501.9985, L3100.5450, L506.0250, L3130.0010, L501.9520, L101.9900, L100.0500, L501.5200, L3300.8000 ####[facility] [address] [place], [place], [phone] Hemoglobin (Bld) [Mass/Vol] 13.4 g/dL Normal 12.0-15.0 [facility] Comment on above: Performed By: #### L 503.0105, L500.4050, L501.9985, L3100.5450, L506.0250, L3130.0010, L501.9520, L101.9900, L100.0500, L501.5200, L3300.8000 ####[facility] [address] [place], [place], [id number] MCH (RBC) [Entitic mass] 31.2 pg Normal 27.0-32.0 [facility] Comment on above: Performed By: #### L 503.0105, L500.4050, L501.9985, L3100.5450, L506.0250, L3130.0010, L501.9520, L101.9900, L100.0500, L501.5200, L3300.8000 ####[facility] [address] [place], [place], [phone]) MCHC (RBC) [Mass/Vol] 32.8 g/dL Normal 32-36 [facility] Comment on above: Performed By: #### L 503.0105, L500.4050, L501.9985, L3100.5450, L506.0250, L3130.0010, L501.9520, L101.9900, L100.0500, L501.5200, L3300.8000 ####[facility] [address] [place], [place], [phone]36) MCV (RBC) [Entitic vol] 95.1 fL Normal 81-99 [facility] Comment on above: Performed By: #### L 503.0105, L500.4050, L501.9985, L3100.5450, L506.0250, L3130.0010, L501.9520, L101.9900, L100.0500, L501.5200, L3300.8000 ####[facility] [address] [place], [place], [phone](803) Platelet mean volume (Bld) [Entitic vol] 9.0 fL Normal 6.2-12.0 [facility] Comment on above: Performed By: #### L 503.0105, L500.4050, L501.9985, L3100.5450, L506.0250, L3130.0010, L501.9520, L101.9900, L100.0500, L501.5200, L3300.8000 ####[facility] [address] [place], [place], [phone](210) Platelets (Bld) [#/Vol] 323 10*3/uL Normal 150-450 [facility] Comment on above: Performed By: #### L 503.0105, L500.4050, L501.9985, L3100.5450, L506.0250, L3130.0010, L501.9520, L101.9900, L100.0500, L501.5200, L3300.8000 ####[facility] [address] [place], [address] RBC (Bld) [#/Vol] 4.29 10*6/uL Normal 4.2-5.4 [facility] Comment on above: Performed By: #### L 503.0105, L500.4050, L501.9985, L3100.5450, L506.0250, L3130.0010, L501.9520, L101.9900, L100.0500, L501.5200, L3300.8000 ####[facility] [address] [place], [address] RDW SD 44.4 fl High 35.1-43.9 [facility] Comment on above: Performed By: #### L 503.0105, L500.4050, L501.9985, L3100.5450, L506.0250, L3130.0010, L501.9520, L101.9900, L100.0500, L501.5200, L3300.8000 ####[facility] [address] [place], [address] WBC (Bld) [#/Vol] 7.4 10*3/uL Normal 4.4-11.0 [facility] Comment on above: Performed By: #### L 503.0105, L500.4050, L501.9985, L3100.5450, L506.0250, L3130.0010, L501.9520, L101.9900, L100.0500, L501.5200, L3300.8000 ####[facility] [address] [place], [address] Comprehensive Metabolic Prof ilon 08-15-2024 Albumin [Mass/Vol] 3.8 g/dL Normal 3.2-5.0 [facility] Comment on above: Order Comment: N Performed By: #### L 503.0105, L500.4050, L501.9985, L3100.5450, L506.0250, L3130.0010, L501.9520, L101.9900, L100.0500, L501.5200, L3300.8000 ####[facility] [address] [place], [place], [id number] Albumin/Globulin [Mass ratio] 1.2 {ratio} Normal 0.9-2.4 [facility] Comment on above: Order Comment: N Performed By: #### L 503.0105, L500.4050, L501.9985, L3100.5450, L506.0250, L3130.0010, L501.9520, L101.9900, L100.0500, L501.5200, L3300.8000 ####[facility] [address] [place], [place], [id number] ALK P 72 U/L Normal 45-117 [facility] Comment on above: Order Comment: N Performed By: #### L 503.0105, L500.4050, L501.9985, L3100.5450, L506.0250, L3130.0010, L501.9520, L101.9900, L100.0500, L501.5200, L3300.8000 ####[facility] [address] [place], [address] ALT [Catalytic activity/Vol] 19 U/L Normal 13-56 [facility] Comment on above: Order Comment: N Performed By: #### L 503.0105, L500.4050, L501.9985, L3100.5450, L506.0250, L3130.0010, L501.9520, L101.9900, L100.0500, L501.5200, L3300.8000 ####[facility] [address] [place], [place], [phone](407) AST [Catalytic activity/Vol] 14 U/L Low 15-37 [facility] Comment on above: Order Comment: N Performed By: #### L 503.0105, L500.4050, L501.9985, L3100.5450, L506.0250, L3130.0010, L501.9520, L101.9900, L100.0500, L501.5200, L3300.8000 ####[facility] [address] [place], [place], [phone]) Bilirubin [Mass/Vol] 0.30 mg/dL Normal 0.20-1.00 [facility] Comment on above: Order Comment: N Result Comment: For patients on eltrombopag therapy, use of Dimension Parker TBIL is not recommended. Performed By: #### L 503.0105, L500.4050, L501.9985, L3100.5450, L506.0250, L3130.0010, L501.9520, L101.9900, L100.0500, L501.5200, L3300.8000 ####[facility] [address] [place], [place], [phone](120) BUN/CRE 14.1 RATIO Normal 10-20 [facility] Comment on above: Order Comment: N Performed By: #### L 503.0105, L500.4050, L501.9985, L3100.5450, L506.0250, L3130.0010, L501.9520, L101.9900, L100.0500, L501.5200, L3300.8000 ####[facility] [address] [place], [place], [phone](119) CA,Total 9.0 mg/dL Normal 8.5-10.1 [facility] Comment on above: Order Comment: N Performed By: #### L 503.0105, L500.4050, L501.9985, L3100.5450, L506.0250, L3130.0010, L501.9520, L101.9900, L100.0500, L501.5200, L3300.8000 ####[facility] [address] [place], [address] Chloride [Moles/Vol] 106 mmol/L Normal 98-107 [facility] Comment on above: Order Comment: N Performed By: #### L 503.0105, L500.4050, L501.9985, L3100.5450, L506.0250, L3130.0010, L501.9520, L101.9900, L100.0500, L501.5200, L3300.8000 ####[facility] [address] [place], [place], [phone](293) CO2 [Moles/Vol] 26.0 mmol/L Normal 21.0-32.0 [facility] Comment on above: Order Comment: N Performed By: #### L 503.0105, L500.4050, L501.9985, L3100.5450, L506.0250, L3130.0010, L501.9520, L101.9900, L100.0500, L501.5200, L3300.8000 ####[facility] [address] [place], [place], [phone](055) Creatinine [Mass/Vol] 0.92 mg/dL Normal 0.55-1.02 [facility] Comment on above: Order Comment: N Result Comment: The validity of the calculated GFR GFRAA in patients over 70 years has not been determined. Clinical correlation is essential. Performed By: #### L 503.0105, L500.4050, L501.9985, L3100.5450, L506.0250, L3130.0010, L501.9520, L101.9900, L100.0500, L501.5200, L3300.8000 ####[facility] [address] [place], [address] EST GFR - AA 80 mL/min Normal >60 [facility] Comment on above: Order Comment: N Result Comment: Afri can Kosovan GFR Calc Performed By: #### L 503.0105, L500.4050, L501.9985, L3100.5450, L506.0250, L3130.0010, L501.9520, L101.9900, L100.0500, L501.5200, L3300.8000 ####[facility] [address] [place], [address] GAP 6 Normal 5-15 [facility] Comment on above: Order Comment: N Performed By: #### L 503.0105, L500.4050, L501.9985, L3100.5450, L506.0250, L3130.0010, L501.9520, L101.9900, L100.0500, L501.5200, L3300.8000 ####[facility] [address] [place], [address] GFR/1.73 sq M.predicted among non-blacks MDRD (S/P/Bld) [Vol rate/Area] 66 mL/min/{1.73_m2} Normal >60 [facility] Comment on above: Order Comment: N Result Comment: Non- GFR Calc Performed By: #### L 503.0105, L500.4050, L501.9985, L3100.5450, L506.0250, L3130.0010, L501.9520, L101.9900, L100.0500, L501.5200, L3300.8000 ####[facility] [address] [place], [address] Globulin (S) [Mass/Vol] 3.3 g/dL Normal 2.2-4.2 [facility] Comment on above: Order Comment: N Performed By: #### L 503.0105, L500.4050, L501.9985, L3100.5450, L506.0250, L3130.0010, L501.9520, L101.9900, L100.0500, L501.5200, L3300.8000 ####[facility] [address] [place], [address] Glucose [Mass/Vol] 98 mg/dL Normal 74-106 [facility] Comment on above: Order Comment: N Performed By: #### L 503.0105, L500.4050, L501.9985, L3100.5450, L506.0250, L3130.0010, L501.9520, L101.9900, L100.0500, L501.5200, L3300.8000 ####[facility] [address] [place], [address] Potassium [Moles/Vol] 4.2 mmol/L Normal 3.5-5.1 [facility] Comment on above: Order Comment: N Performed By: #### L 503.0105, L500.4050, L501.9985, L3100.5450, L506.0250, L3130.0010, L501.9520, L101.9900, L100.0500, L501.5200, L3300.8000 ####[facility] [address] [place], [address] Sodium [Moles/Vol] 137 mmol/L Normal 136-145 [facility] Comment on above: Order Comment: N Performed By: #### L 503.0105, L500.4050, L501.9985, L3100.5450, L506.0250, L3130.0010, L501.9520, L101.9900, L100.0500, L501.5200, L3300.8000 ####[facility] [address] [place], [address] T PROT 7.1 g/dL Normal 6.4-8.2 [facility] Comment on above: Order Comment: N Performed By: #### L 503.0105, L500.4050, L501.9985, L3100.5450, L506.0250, L3130.0010, L501.9520, L101.9900, L100.0500, L501.5200, L3300.8000 ####[facility] [address] [place], [place], [id number] Urea nitrogen [Mass/Vol] 13 mg/dL Normal 7-18 [facility] Comment on above: Order Comment: N Performed By: #### L 503.0105, L500.4050, L501.9985, L3100.5450, L506.0250, L3130.0010, L501.9520, L101.9900, L100.0500, L501.5200, L3300.8000 ####[facility] [address] [place], [place], [id number] Erythrocyte Sed Rateon 08-15 SED RATE 1 mm/hr Normal 0-30 [facility] Comment on above: Performed By: #### L 503.0105, L500.4050, L501.9985, L3100.5450, L506.0250, L3130.0010, L501.9520, L101.9900, L100.0500, L501.5200, L3300.8000 #### [facility] [address] [place], [place], [id number] Folates, (Folic Acid)on 08-04 FOLATES 16.90 ng/mL Normal 3.1-55.4 [facility] Comment on above: Order Comment: N Performed By: #### L 503.0105, L500.4050, L501.9985, L3100.5450, L506.0250, L3130.0010, L501.9520, L101.9900, L100.0500, L501.5200, L3300.8000 ####[facility] [address] [place], [place], [id number] Hemoglobin A1con 08-15-2024 HbA1c (Bld) [Mass fraction] 5.4 % Normal 3.8-5.6 [facility] Comment on above: Result Comment: Norm al < 5.7 % Prediabetic 5.7 - 6.4 % Diabetic >or= 6.5 % Please note range changes. Performed By: #### L 503.0105, L500.4050, L501.9985, L3100.5450, L506.0250, L3130.0010, L501.9520, L101.9900, L100.0500, L501.5200, L3300.8000 ####[facility] [address] [place], [place], [id number] Magnesiumon 08-15-2024 Magnesium [Mass/Vol] 2.3 mg/dL Normal 1.6-2.6 [facility] Comment on above: Order Comment: N Performed By: #### L 503.0105, L500.4050, L501.9985, L3100.5450, L506.0250, L3130.0010, L501.9520, L101.9900, L100.0500, L501.5200, L3300.8000 ####[facility] [address] [place], [place], [id number] Thyroid Stim Hormone (TSH)on 08-15-2024 TSH 1.460 uIU/mL Normal 0.358-3.74 0 [facility] Comment on above: Order Comment: N Performed By: #### L 503.0105, L500.4050, L501.9985, L3100.5450, L506.0250, L3130.0010, L501.9520, L101.9900, L100.0500, L501.5200, L3300.8000 ####[facility] [address] [place], [place], [id number] Vitamin B12on 08-15-2024 Cobalamin (Vitamin B12) [Mass/Vol] 448 pg/mL Normal 211-911 [facility] Comment on above: Performed By: #### L 503.0105, L500.4050, L501.9985, L3100.5450, L506.0250, L3130.0010, L501.9520, L101.9900, L100.0500, L501.5200, L3300.8000 ####[facility] [address] [place], [address] Internal Medicine Office Vis iton 08-02-2024 Internal Medicine Office Visit [facility] [address] [place] [address] [place] [address] OFFICE VISIT Date of Service: 08/03/24 MR#: [id number] Acct: [id number] Name: MORENO VANESSA Rep #: [id number] : 1965 Provider: Dr. Jill laughlin MD Age/Sex: 58/F Location[place] [facility] Status: Signed Intake Vital Signs 04/27/24 14:02 07/24/24 07:57 08/03/24 13:31 Height 5 ft 9 in 5 ft 9 in 5 ft 9 in Weight: 200 lb BMI 29.5 BP 104/64 Blood Pressure Location Lt brachial Position Sitting Respiration 12 Pulse 94 Pulse Source Monitor Temp 97.8 F Temp Source Temporal Pulse Oximetry (%) 97 Oxygen Delivery Method room air Intake Visit Reasons: 3 M FU Is patient in pain?: No Allergies Sulfa (Sulfonamide Antibiotics) Allergy (Mild, Verified 08/03/24 13:33) rash Medications ???Medication ???Instructions ???Recorded ???Confirmed ???Type multivitamin 1 tab PO DAILY 06/17/22 08/03/24 History ascorbate calcium (vitamin C) 500 500 mg PO DAILY 09/24/22 08/03/24 History mg tablet calcium carbonate (Calcium 600) 600 mg PO DAILY 09/24/22 08/03/24 History cholecalciferol (vitamin D3) 125 125 mcg PO DAILY 09/24/22 08/03/24 History mcg (5,000 unit) tablet flaxseed oil 1,000 mg capsule 1,000 mg PO DAILY 09/24/22 08/03/24 History budesonide-formoterol HFA 160 2 puff inhalation .Q4-6 PRN 11/05/23 08/03/24 Rx mcg-4.5 mcg/actuation aerosol shortness of breath or wheezing inhaler (Symbicort) #10.2 grams estradiol 1 mg tablet (Estrace) 1 mg PO DAILY #90 tabs 01/13/24 08/03/24 Rx duloxetine 60 mg capsule,delayed 60 mg PO QHS #30 caps 04/18/24 08/03/24 Rx release bupropion HCl 150 mg 24 hr tablet, 150 mg PO QAM #90 tabs 05/09/24 08/03/24 Rx extended release fluoxetine 10 mg capsule (Prozac) 10 mg PO DAILY #30 caps 06/13/24 08/03/24 Rx topiramate 25 mg tablet (Topamax) 25 mg PO BID PRN WEIGHT LOSS 07/20/24 08/03/24 History baclofen 10 mg tablet 10 mg PO QDAY PRN muscle spasm #30 08/03/24 08/03/24 Rx tabs celecoxib 50 mg capsule (Celebrex) 50 mg PO BID #60 caps 08/03/24 08/03/24 Rx PFSH Medical History Wears glasses History of steroid therapy Back pain Non-smoker Colitis Leg cramps History of pain when walking History of edema Acute diarrhea Neuropathy of right foot Peripheral neuropathy Erythromelalgia Scoliosis Asthma Degenerative disc disease Depression Surgical History Hx of colonoscopy History of surgical procedure H/O tubal ligation S/P laparoscopic assisted vaginal hysterectomy (LAVH) delivery delivered Family History Other Adopted Social History adopted: Yes household members: spouse current occupational status: employed current occupation: [employer] Smoking Status: Never smoker Electronic Cigarette Use: not used alcohol intake: current alcohol intake frequency: holidays/special occasions only details: social substance use type: does not use caffeine: Yes what type of physical activity do you participate in: none seatbelt use: always do you feel safe at home: Yes additional social history: [facility] HPI Details: MORENO VANESSA, is a 58 F who presents to the office today for a follow up.??? She is up to date on her routine blood work and screening. She would like her flu and first shingrix today.??? She doesn't smoke and does need refills today.??? She reports she hasn't been doing well in terms of eating healthy. Her activity level hasn't been great. Since the patient was last seen, she did establish with neurology locally. He started her on cymbalta for her neuropathy and mood. She is no longer taking the lyrica. She reports that she likes it better for her neuropathic pain noting it doesn't cause as much side effects. She has a follow up in a couple of weeks. She continues to use ice packs which helps control her pain. She reports she finds compression stockings seem to hurt her foot more. She is trying to wear footless stockings which is a bit better tolerated. She reports her mental health has been doing alright. She has cut back on her wellbutrin dose and continues to take the prozac. She feels that she is doing well with her current dosing. She denies any thoughts of suicide. She reports her back and hip pain has flared up. She stopped taking the meloxicam as it was causing GI upset. She was encouraged earlier this week to try a smaller dose and to reach out to her orthopedist. She reports that it did seem to decrease her GI symptoms and help with her pain. She continues to have pain, however, and wonders if there may be something else she can try. She repo (more content not included)... Normal [facility] Colonoscopy Reporton 024 Colonoscopy Report [facility] Medical Records Department [address] [place] [address] Colonoscopy Report MR#: [id number] Acct: [id number] Name: MORENO VANESSA Rep #: [id number] : 1965 58 From: Fatemeh Urbina MD PCP: Dr. Jill Zelaya MD Status:DEP [facility] [place] Patient Name: Moreno Vanessa Procedure Date: 07/24/2024 9:27 AM Date of : 1965 Age: 58 Procedure: Colonoscopy Indications: Clinically significant diarrhea of unexplained origin Providers: Fatemeh Urbina MD Medicines: Monitored Anesthesia Care Patient Profile: This is a 58 year old female. Last Colonoscopy: 2018. Complications: No immediate complications. Procedure: Pre-Anesthesia Assessment: - Prior to the procedure, a History and Physical was performed, and patient medications and allergies were reviewed. The patient's tolerance of previous anesthesia was also reviewed. The risks and benefits of the procedure and the sedation options and risks were discussed with the patient. All questions were answered, and informed consent was obtained. Prior Anticoagulants: The patient has taken no anticoagulant or antiplatelet agents. ASA Grade Assessment: Per anesthesia. After reviewing the risks and benefits, the patient was deemed in satisfactory condition to undergo the procedure. After I obtained informed consent, the scope was passed under direct vision. Throughout the procedure, the patient's blood pressure, pulse, and oxygen saturations were monitored continuously. The pediatric colonoscope was introduced through the anus and advanced to the cecum, identified by the ileocecal valve. The colonoscopy was performed without difficulty. The patient tolerated the procedure well. The quality of the bowel preparation was good. Scope In: 9:33:00 AM Scope Withdrawal Time 0 hours 9 minutes 20 seconds Scope Out: 9:55:40 AM Total Procedure Duration Time 0 hours 22 minutes 40 seconds Findings: The perianal and digital rectal examinations were normal. A less than 5 mm polyp was found in the rectum. The polyp was sessile. The polyp was removed with a cold biopsy forceps. Resection and retrieval were complete. Three random biopsies were obtained with cold forceps for histology in the rectum, in the sigmoid colon and in the transverse colon. The exam was otherwise without abnormality on direct and retroflexion views. A few small-mouthed diverticula were found in the sigmoid colon. Impression: - One less than 5 mm polyp in the rectum, removed with a cold biopsy forceps. Resected and retrieved. - The examination was otherwise normal on direct and retroflexion views. - Diverticulosis in the sigmoid colon. - Three random biopsies were obtained in the rectum, in the sigmoid colon and in the transverse colon. Recommendation: - Discharge patient to home. - Resume previous diet. - Continue present medications. - Await pathology results. - Repeat colonoscopy in 5-10 years for surveillance based on pathology results. Procedure Code(s): --- Professional --- 29420, Colonoscopy, flexible; with biopsy, single or multiple Diagnosis Code(s): --- Professional --- D12.8, Benign neoplasm of rectum R19.7, Diarrhea, unspecified K57.30, Diverticulosis of large intestine without perforation or abscess without bleeding CPT copyright 2021 [employer]. All rights reserved. The codes documented in this report are preliminary and upon milk bottler review may be revised to meet current compliance requirements. MD Fatemeh Wilcox MD 07/24/2024 10:01:08 AM This report has been signed electronically. Number of Addenda: 0 Note Initiated On: 07/24/2024 9:27 AM 07/24/24 1001 Date Fatemeh Urbina MD Cosigner Signature: Date (if indicated) CC: Dr. Jill Zelaya MD; Dr. Fatemeh Urbina MD Date Dictated: 07/24/24926 Date Transcribed: Technical Architect: TR Signed [facility] MR/POSTOP.[facility] 07-24-2024 MR/POSTOP.[facility] Medical Records Department [address] [place] [address] Anesthesia Postop Eval I 07/24/2459 MR#: [id number] Acct: [id number] Name: MORENO VANESSA Rep #: [id number] : 1965 58 From: Hugh Spence PCP: Dr. Jill Zelaya MD Status:REG SDC Y Race: C Location: [place] [address] Anesthesia: Postop Eval I Current Vital Signs Temperature: 97 F Pulse Rate: 69 Blood Pressure: 90/62 Respiratory Rate: 16 Pulse Ox: 99 Oxygen Delivery Method: Room Air Assessment Airway patent: Yes Spontaneous unlabored respirations: Yes Mental status: Awake and Calm nausea: No Vomiting: No Anesthesia Complication: No Fluid Hydration Crystalloid volume administer (ml): 20 Total IV fluid infused: 20 Progress Note Anesthesia document: Postop Eval 1 completed: Yes 07/24/24 1000 Date Hugh Iglesias Signature: Date CC: Signed Normal [facility] MR/CPEMQIRS2oa 07-24-2024 /POSTOPAN2 [facility] Medical Records Department [address] [place] [address] Anesthesia Postop Eval II 07/24/24 1000 MR#: [id number] Acct: [id number] Name: MORENO VANESSA Rep #: [id number] : 1965 58 From: Hugh Spence PCP: Dr. Jill Zelaya MD Status:REG SDC Y Race: C Location: [place] [address] Anesthesia Postop Eval I Sum Postop Eval Completion status Anesthesia document: Postop Eval 1 completed: Yes Anesthesia Postop Eval I Summary Anesthesia Postop Eval I Summary: Anesthesia Postop Eval I: Assessment Summary Airway patent Yes 07/24/24 10:00 CORRECTIONS NURSE.TOAN Spontaneous unlabored Yes 07/24/24 10:00 CORRECTIONS NURSE.OT respirations Mental status Awake,Calm 07/24/24 10:00 CORRECTIONS NURSE.OT nausea No 07/24/24 10:00 CORRECTIONS NURSE.OT Vomiting No 07/24/24 10:00 CORRECTIONS NURSE.TOAN Anesthesia Postop Eval I: Fluid Summary Crystalloid volume administer 20 07/24/24 10:00 CORRECTIONS NURSEJALEN (ml) Colloids volume administered ( ml) Blood Product volume administered (ml) Total IV fluid infused 20 07/24/24 10:00 CORRECTIONS NURSE.TOAN Anesthesia Postop Eval I: Summary Notes Anesthesia Complication No 07/24/24 10:00 CORRECTIONS NURSE.MDOT Anesthesia Complication Comment: Post-operative progress note Anesthesia: Postop Eval II Evaluation Mental status: Awake and Calm Pain Level: 0 nausea: No Vomiting: No Complications Anesthesia Complication: No 07/24/24 1000 Date Hugh Iglesias Signature: Date CC: Signed Normal [facility] Trichrome (control)on 2023 Trichrome (control) ------- Patient Age/Sex Location Account Attending Physician MORENO VANESSA 58/F EN [id number] Dr. Fatemeh Urbina MD Specimen: [id number] Received: 07/24/24-2018 Status: CONSUELO Elena Num: [id number] Spec Type: COLON BX Subm Dr: Dr. Fatemeh Urbina MD HEADER OPERATION: Colonoscopy with biopsy, polypectomy PRE-OP DIAGNOSIS: Diarrhea TISSUE SUBMITTED: A- Random colon biopsy, B- Rectal polyp biopsy MICROSCOPIC DIAGNOSIS A. Colon, random biopsy: Fragments of colonic mucosa with changes consistent with lymphocytic (microscopic) and collagenous colitis. See comment. B. Rectal polyp, biopsy: Fragments of hyperplastic polyp. [facility] 07/25/2024 COMMENT A. Trichrome stain with matched control is used in the evaluation of the specimen and shows focal thickening of subepithelial collagen band. Case has been reviewed in consultation with Dr. Clayton who concurs with the above diagnosis. IDC:AM MICROSCOPIC DESCRIPTION Slides are reviewed. GROSS DESCRIPTION A. Received in fixative is one container labeled with the patient's name and designated Random colon biopsy. The specimen consists of multiple irregular fragments of light stone soft tissue that in aggregate measure 1.0 x 0.6 x 0.1 cm. The specimen is totally submitted in one cassette. B. Received in fixative is one container labeled with the patient's name and designated Rectal polyp biopsy. The specimen consists of multiple irregular fragments of light stone soft tissue that in aggregate measure 0.8 x 0.3 x 0.1 cm. The specimen is totally submitted in one cassette. . 07/24/2024 TC:3 CPT:59286i2 ,18552 Patient Age/Sex Location Account Attending Physician MORENO VANESSA 58/F EN [id number] Dr. Fatemeh Urbina MD Signed (signature on file) Dr. Mike Leon MD 07/25/24 1301 Normal [facility] Comment on above: Performed By: #### P TRI ####[facility] [address] [place], [address] SCRN MAMM (CAD)W/ANDREAS BILATo n 07-13-2024 SCRN MAMM (CAD)W/ANDREAS BILAT [facility] Imaging Services [address] [facility] [address] [facility] [address] [place], [place] [id number] SCRN MAMM (CAD)W/ANDREAS BILAT MR#: [id number] Acct: [id number] Name: MORENO VANESSA Rep #: [id number] : 1965 F 58 From: James shaikh MD PCP: Dr. Jill Zelaya MD Status: REG [facility] Study: SCRN MAMM (CAD)W/ANDREAS BILAT Date of Exam: 07/04 Exam# [id number] Ordering Dr: Zoraida Segura MANAGER STRATEGY & ACCOUNT-C [id number] MAMMOGRAPHY - BILATERAL SCREENING REASON FOR EXAM: Female, 58 years old. Routine annual screening examination. PERTINENT HISTORY: Non-contributory. TECHNIQUE: Digital bilateral breast andreas (3D mammographic acquisition) in the CC and MLO projections. 2-D mediolateral oblique (MLO) and craniocaudad (CC) views of both breasts were obtained. CAD: Full Field Digital Mammography with Computer Added Detection was performed. COMPARISON: Comparison is made with prior study dated March 23, 2023 and June 04, 2022. FINDINGS: Breast Composition: The breasts are almost entirely fatty. There are no dominant masses or suspicious calcifications. No other significant abnormalities are identified. There has been no significant change since the prior study. BI/SCRN MAMM (CAD)W/ANDREAS BILAT IMPRESSION: Stable bilateral screening mammogram. Yearly follow-up mammogram recommended. (A) ASSESSMENT CATEGORY: BIRADS Category 1: Negative. A letter regarding these results will be sent to the patient by the facility within 30 days. Approximately 10% of breast cancers are not detected by mammography. A normal mammogram should not delay biopsy of a clinically suspicious abnormality. [id number] Electronically Signed: James Reynoso MD at 15:14 EDT , CC: MIAH Segura; Dr. Jill Zelaya MD Technical Architect: Signed Normal [facility] Surgery Visit Reporton 06-01 Surgery Visit Report [facility] [address] [place] [address] OFFICE VISIT Date of Service: 06/01/24 MR#: [id number] Acct: [id number] Name: MORENO VANESSA Rep #: [id number] : 1965 Provider: Dr. Fatemeh nguyen MD Age/Sex: 58/F Location: [facility] Status: Signed Intake Vital Signs 05/26/24 13:31 06/01/24 10:14 Height 5 ft 9 in 5 ft 9 in Weight: 192 lb 191 lb 6 oz BMI 28.3 28.2 BP 106/72 117/81 H Blood Pressure Location Lt brachial Rt brachial Position Sitting Sitting Respiration 16 18 Pulse 80 90 Pulse Source Monitor Monitor Temp 96.7 F L 97.1 F L Temp Source Temporal Temporal Pulse Oximetry (%) 98 98 Oxygen Delivery Method room air room air Intake Visit Reasons: Diarrhea Chief Complaint: diarrhea/abdominal pain Service Developer Required: No Is patient in pain?: No Allergies Sulfa (Sulfonamide Antibiotics) Allergy (Mild, Verified 06/01/24 10:15) rash Medications ???Medication ???Instructions ???Recorded ???Confirmed ???Type multivitamin 1 tab PO DAILY 06/17/22 06/01/24 History ascorbate calcium (vitamin C) 500 500 mg PO DAILY 09/24/22 06/01/24 History mg tablet calcium carbonate (Calcium 600) 600 mg PO DAILY 09/24/22 06/01/24 History cholecalciferol (vitamin D3) 125 125 mcg PO DAILY 09/24/22 06/01/24 History mcg (5,000 unit) tablet flaxseed oil 1,000 mg capsule 1,000 mg PO DAILY 09/24/22 06/01/24 History topiramate 25 mg tablet (Topamax) 25 mg PO BID #60 tabs 10/14/23 06/01/24 Rx budesonide-formoterol HFA 160 2 puff inhalation .Q4-6 PRN 11/05/23 06/01/24 Rx mcg-4.5 mcg/actuation aerosol shortness of breath or wheezing inhaler (Symbicort) #10.2 grams estradiol 1 mg tablet (Estrace) 1 mg PO DAILY #90 tabs 01/13/24 06/01/24 Rx fluoxetine 10 mg capsule (Prozac) 10 mg PO DAILY #30 caps 04/07/24 06/01/24 Rx duloxetine 60 mg capsule,delayed 60 mg PO QHS #30 caps 04/18/24 06/01/24 Rx release baclofen 10 mg tablet See Rx Instructions .Route QDAY 05/09/24 06/01/24 Rx #20 tabs bupropion HCl 150 mg 24 hr tablet, 150 mg PO QAM #90 tabs 05/09/24 06/01/24 Rx extended release budesonide 9 mg tablet,delayed and 9 mg PO DAILY 10 days #10 ea 05/29/24 06/01/24 Rx extended release sodium sul 1.479 gram-potas ch See Rx Instructions PO PER PKG DIR 06/01/24 06/01/24 Rx 0.188 gram-magnes sul 0.225 gram #1 pkg tablet (Sutab) PFSH Medical History (Updated 06/01/24 @ 10:13 by Magi Reddy) Abdominal pain Acute diarrhea Neuropathy of right foot Peripheral neuropathy Erythromelalgia Scoliosis Back muscle spasm Osteoarthritis Irritable bowel syndrome Generalized headaches UTI (urinary tract infection) Asthma Seasonal allergies Degenerative disc disease Depression Surgical History History of surgical procedure H/O tubal ligation S/P laparoscopic assisted vaginal hysterectomy (LAVH) delivery delivered Family History Other Adopted Social History adopted: Yes household members: spouse current occupational status: employed current occupation: [employer] Smoking Status: Never smoker Electronic Cigarette Use: not used alcohol intake: current alcohol intake frequency: holidays/special occasions only details: social substance use type: does not use caffeine: Yes what type of physical activity do you participate in: none seatbelt use: always do you feel safe at home: Yes additional social history: [facility]- HPI HPI HPI: 58-year-old female presents due to diarrhea for about the last 3.5 weeks after taking milk of magnesia. Patient has had stool studies which showed positive leuk esterase, pathogens negative and patient went on a brat diet and also stopped her meloxicam about 1.5 weeks ago with no success. Patient has a history of collagenous colitis about 10 years ago. Patient last colonoscopy was in [place] 2018 negative per patient. Patient was recently started on budesonide states she has occasional cramping but states it is improved with the budesonide and also currently she has no diarrhea. Patient has 10-day course of the budesonide. Patient states she has occasional GERD. Does take Gas-X when needed which helps. Patient states prior to this diarrhea she has had chronic constipation all of her life which Benefiber has helped however there are certain foods that cause a lot of bloating she is unable to tolerate this also includes MiraLAX, oatmeal, Lao yogurt, cottage cheese, eggs. Patient have some recent left lower quadrant pain that has resolved. ROS General General: Yes fatigue; No weight change, appetite, colon cancer or breast cancer (more content not included)... Normal [facility] Calprotectin, Stoolon [address] 1110 ug/g Abnormal 0-120 [facility] Comment on above: Result Comment: Re sults verified by repeat testing Concentration Interpretation Follow-Up < 5 - 50 ug/g Normal None >50 -120 ug/g Borderline Re-evaluate in 4-6 weeks >120 ug/g Abnormal Repeat as clinically indicated Performed at: [facility] [id number] Network Admin: Kd Hannon MD, Phone: [phone] Performed By: #### M 100.8201, M100.0665, L7000.0700, M100.7600, M100.867 ####[facility] [address] [place], [place], [address] CDIFF (PCR)on 05-27-2024 CDIFF Pending 027 [id number] NAP1-B1 Presumptive Negative *for epidemiolologic???use C. Diff PCR Negative- No toxigenic C. Diff Detected Normal [facility] Comment on above: Performed By: #### M 100.6796, M100.0605, L7000.0700, M100.7900, M100.637 ####[facility] [address] [place], [address] ENTERIC PATHOGEN PANEL STOOL on 05-27-2024 EP PANEL Normal Reference Ran ge = Not Detected GI pathogens Pnl Stl HANNAH+probe Nucleic acid amplification test method GI pathogens Pnl Stl HANNAH+probe Not detected for Campylobacter group, Salmonella species, Shigella species, Vibrio Group, Yersinia enterocolitica, EHEC (Shiga Toxin 1, Shiga Toxin 2), Norovirus Gl/Gll, and Rotavirus A. Other common stool pathogens are not detected on this panel include: Aeromonas/Plesiomonas or parasites. Order testing for these organisms separately if suspected. This is an amplified DNA test which makes it both specific and sensitive. CAMPYLOBACTER Not Detected Norovirus Not Detected Rotavirus Not Detected Salmonella Not Detected Shiga Toxin Not Detected Shigella sp. Not Detected VIBRIO Not Detected Yersinia Not Detected Normal [facility] Comment on above: Performed By: #### M 100.6796, M100.0605, L7000.0700, M100.7900, M100.637 ####[facility] [id number] [facility] [place], [address] Stool Lactoferrin/WBCon 05-05 WBCST Normal Reference Ran ge = Negative Fecal WBC Lactoferrin A Positive: Fecal WBC Lactoferrin present A Normal [facility] Comment on above: Performed By: #### M 100.6796, M100.0605, L7000.0700, M100.7900, M100.637 ####[facility] [id number] [facility] [place], [address] Stool Occult Blood iFOBon STOB Positive Normal [facility] Comment on above: Performed By: #### M 100.6796, M100.0605, L7000.0700, M100.7900, M100.637 ####[facility] [address] [place], [address] CBC W/Diff, Automatedon 08-2 -2023 Absolute Lymph 1.28 X10 3/uL Normal 0.83-4.51 [facility] Comment on above: Performed By: #### L 100.0100, L500.4050 #### [facility] [address] [place], [address] Absolute Neut 5.0 X10 3/uL Normal 2.0-7.7 [facility] Comment on above: Performed By: #### L 100.0100, L500.4050 #### [facility] [address] [place], [address] Basophils/100 WBC (Bld) 1.0 % Normal 0-1 [facility] Comment on above: Performed By: #### L 100.0100, L500.4050 #### [facility] [address] [place], [address] Eosinophils/100 WBC (Bld) 2.4 % Normal 0-5 [facility] Comment on above: Performed By: #### L 100.0100, L500.4050 #### [facility] [address] [place], [address] Erythrocyte distribution width (RBC) [Ratio] 12.1 % Normal 11.6-14.6 [facility] Comment on above: Performed By: #### L 100.0100, L500.4050 #### [facility] [address] [place], [address] Hematocrit (Bld) [Volume fraction] 40.2 % Normal 37-47 [facility] Comment on above: Performed By: #### L 100.0100, L500.4050 #### [facility] [address] [place], [address] Hemoglobin (Bld) [Mass/Vol] 13.4 g/dL Normal 12.0-15.0 [facility] Comment on above: Performed By: #### L 100.0100, L500.4050 #### [facility] [address] [place], [address] IG% 0.300 Normal 0.0-0.9 [facility] Comment on above: Result Comment: IG% - Immature Granulocytes (promyelocytes, myelocytes and metamyelocytes) > 1% indicates that a LEFT SHIFT is Present. Performed By: #### L 100.0100, L500.4050 #### [facility] [address] [place], [address] Lymphocytes/100 WBC (Bld) 18.1 % Low 19-41 [facility] Comment on above: Performed By: #### L 100.0100, L500.4050 #### [facility] [address] [place], [address] MCH (RBC) [Entitic mass] 31.2 pg Normal 27.0-32.0 [facility] Comment on above: Performed By: #### L 100.0100, L500.4050 #### [facility] [address] [place], [address] MCHC (RBC) [Mass/Vol] 33.3 g/dL Normal 32-36 [facility] Comment on above: Performed By: #### L 100.0100, L500.4050 #### [facility] [address] [place], [address] MCV (RBC) [Entitic vol] 93.7 fL Normal 81-99 [facility] Comment on above: Performed By: #### L 100.0100, L500.4050 #### [facility] [address] [place], [address] Monocytes/100 WBC (Bld) 7.1 % Normal 0-10 [facility] Comment on above: Performed By: #### L 100.0100, L500.4050 #### [facility] [address] [place], [address] Neutrophils/100 WBC (Bld) 71.1 % High 47-70 [facility] Comment on above: Performed By: #### L 100.0100, L500.4050 #### [facility] [address] [place], [address] Nucleated RBC (Bld) [#/Vol] 0 10*3/uL Normal 0-5 [facility] Comment on above: Performed By: #### L 100.0100, L500.4050 #### [facility] [address] [place], [address] Platelet mean volume (Bld) [Entitic vol] 8.8 fL Normal 6.2-12.0 [facility] Comment on above: Performed By: #### L 100.0100, L500.4050 #### [facility] [address] [place], [address] Platelets (Bld) [#/Vol] 279 10*3/uL Normal 150-450 [facility] Comment on above: Performed By: #### L 100.0100, L500.4050 #### [facility] [address] [place], [address] RBC (Bld) [#/Vol] 4.29 10*6/uL Normal 4.2-5.4 [facility] Comment on above: Performed By: #### L 100.0100, L500.4050 #### [facility] [address] [place], [address] RDW SD 41.9 fl Normal 35.1-43.9 [facility] Comment on above: Performed By: #### L 100.0100, L500.4050 #### [facility] [address] [place], [address] WBC (Bld) [#/Vol] 7.1 10*3/uL Normal 4.4-11.0 [facility] Comment on above: Performed By: #### L 100.0100, L500.4050 #### [facility] [address] [place], [address] Comprehensive Metabolic Prof ilon 05-26-2024 Albumin [Mass/Vol] 3.7 g/dL Normal 3.2-5.0 [facility] Comment on above: Performed By: #### L 100.0100, L500.4050 #### [facility] [address] [place], [address] Albumin/Globulin [Mass ratio] 1.1 {ratio} Normal 0.9-2.4 [facility] Comment on above: Performed By: #### L 100.0100, L500.4050 #### [facility] [address] [place], [address] ALK P 77 U/L Normal 45-117 [facility] Comment on above: Performed By: #### L 100.0100, L500.4050 #### [facility] [address] [place], [address] ALT [Catalytic activity/Vol] 16 U/L Normal 13-56 [facility] Comment on above: Performed By: #### L 100.0100, L500.4050 #### [facility] [address] [place], [address] AST [Catalytic activity/Vol] 9 U/L Low 15-37 [facility] Comment on above: Performed By: #### L 100.0100, L500.4050 #### [facility] [address] [place], [address] Bilirubin [Mass/Vol] 0.30 mg/dL Normal 0.20-1.00 [facility] Comment on above: Result Comment: For patients on eltrombopag therapy, use of Dimension Parker TBIL is not recommended. Performed By: #### L 100.0100, L500.4050 #### [facility] [address] [place], [address] BUN/CRE 11.5 RATIO Normal 10-20 [facility] Comment on above: Performed By: #### L 100.0100, L500.4050 #### [facility] [address] [place], [address] CA,Total 8.9 mg/dL Normal 8.5-10.1 [facility] Comment on above: Performed By: #### L 100.0100, L500.4050 #### [facility] [address] [place], [address] Chloride [Moles/Vol] 104 mmol/L Normal 98-107 [facility] Comment on above: Performed By: #### L 100.0100, L500.4050 #### [facility] [address] [place], [address] CO2 [Moles/Vol] 27.0 mmol/L Normal 21.0-32.0 [facility] Comment on above: Performed By: #### L 100.0100, L500.4050 #### [facility] [address] [place], [address] Creatinine [Mass/Vol] 0.78 mg/dL Normal 0.55-1.02 [facility] Comment on above: Result Comment: The validity of the calculated GFR GFRAA in patients over 70 years has not been determined. Clinical correlation is essential. Performed By: #### L 100.0100, L500.4050 #### [facility] [address] [place], [address] EST GFR - AA 96 mL/min Normal >60 [facility] Comment on above: Result Comment: Afri can Kosovan GFR Calc Performed By: #### L 100.0100, L500.4050 #### [facility] [address] [place], [address] GAP 6 Normal 5-15 [facility] Comment on above: Performed By: #### L 100.0100, L500.4050 #### [facility] [address] [place], [address] GFR/1.73 sq M.predicted among non-blacks MDRD (S/P/Bld) [Vol rate/Area] 80 mL/min/{1.73_m2} Normal >60 [facility] Comment on above: Result Comment: Non- GFR Calc Performed By: #### L 100.0100, L500.4050 #### [facility] [address] [place], [address] Globulin (S) [Mass/Vol] 3.3 g/dL Normal 2.2-4.2 [facility] Comment on above: Performed By: #### L 100.0100, L500.4050 #### [facility] [address] [place], [address] Glucose [Mass/Vol] 91 mg/dL Normal 74-106 [facility] Comment on above: Performed By: #### L 100.0100, L500.4050 #### [facility] [address] [place], [address] Potassium [Moles/Vol] 3.8 mmol/L Normal 3.5-5.1 [facility] Comment on above: Performed By: #### L 100.0100, L500.4050 #### [facility] [address] [place], [address] Sodium [Moles/Vol] 137 mmol/L Normal 136-145 [facility] Comment on above: Performed By: #### L 100.0100, L500.4050 #### [facility] [address] [place], [address] T PROT 7.0 g/dL Normal 6.4-8.2 [facility] Comment on above: Performed By: #### L 100.0100, L500.4050 #### [facility] [address] [place], [address] Urea nitrogen [Mass/Vol] 9 mg/dL Normal 7-18 [facility] Comment on above: Performed By: #### L 100.0100, L500.4050 #### [facility] [address] [place], [address] Internal Medicine Office Vis itosamina 05-26-2024 Internal Medicine Office Visit [facility] [address] [place], [place] [address] OFFICE VISIT Date of Service: 05/26/24 MR#: [id number] Acct: [id number] Name: MORENO VANESSA Rep #: [id number] : 1965 Provider: MIAH turk Age/Sex: 58/F Location[place] [facility] [place] Status: Signed Intake Vital Signs 04/27/24 14:02 05/26/24 13:31 Height 5 ft 9 in 5 ft 9 in Weight: 192 lb 4 oz 192 lb BMI 28.3 28.3 BP 124/62 H 106/72 Blood Pressure Location Lt brachial Lt brachial Position Sitting Sitting Respiration 16 16 Pulse 113 H 80 Pulse Source Monitor Monitor Temp 97.3 F L 96.7 F L Temp Source Temporal Temporal Pulse Oximetry (%) 96 98 Oxygen Delivery Method room air room air Intake Visit Reasons: ACUTE DIARRHEA FOR 3WEEKS Chief Complaint: 3m f/u Accompanied by: Is patient in pain?: No Allergies Sulfa (Sulfonamide Antibiotics) Allergy (Mild, Verified 05/26/24 13:27) rash Medications ???Medication ???Instructions ???Recorded ???Confirmed ???Type multivitamin 1 tab PO DAILY 06/17/22 05/26/24 History ascorbate calcium (vitamin C) 500 500 mg PO DAILY 09/24/22 05/26/24 History mg tablet calcium carbonate (Calcium 600) 600 mg PO DAILY 09/24/22 05/26/24 History cholecalciferol (vitamin D3) 125 125 mcg PO DAILY 09/24/22 05/26/24 History mcg (5,000 unit) tablet flaxseed oil 1,000 mg capsule 1,000 mg PO DAILY 09/24/22 05/26/24 History topiramate 25 mg tablet (Topamax) 25 mg PO BID #60 tabs 10/14/23 05/26/24 Rx budesonide-formoterol HFA 160 2 puff inhalation .Q4-6 PRN 11/05/23 05/26/24 Rx mcg-4.5 mcg/actuation aerosol shortness of breath or wheezing inhaler (Symbicort) #10.2 grams estradiol 1 mg tablet (Estrace) 1 mg PO DAILY #90 tabs 01/13/24 05/26/24 Rx fluoxetine 10 mg capsule (Prozac) 10 mg PO DAILY #30 caps 04/07/24 05/26/24 Rx duloxetine 60 mg capsule,delayed 60 mg PO QHS #30 caps 04/18/24 05/26/24 Rx release baclofen 10 mg tablet See Rx Instructions .Route QDAY 05/09/24 05/26/24 Rx #20 tabs bupropion HCl 150 mg 24 hr tablet, 150 mg PO QAM #90 tabs 05/09/24 05/26/24 Rx extended release PFSH Medical History Neuropathy of right foot Peripheral neuropathy Erythromelalgia Scoliosis Back muscle spasm Osteoarthritis Irritable bowel syndrome Generalized headaches UTI (urinary tract infection) Asthma Seasonal allergies Degenerative disc disease Depression Surgical History History of surgical procedure H/O tubal ligation S/P laparoscopic assisted vaginal hysterectomy (LAVH) delivery delivered Family History Other Adopted Social History adopted: Yes household members: spouse current occupational status: employed current occupation: [employer] Smoking Status: Never smoker Electronic Cigarette Use: not used alcohol intake: current alcohol intake frequency: holidays/special occasions only details: social substance use type: does not use caffeine: Yes what type of physical activity do you participate in: none seatbelt use: always do you feel safe at home: Yes additional social history: [employer] [facility] HPI Chief Complaint: 3m f/u Details: MORENO VANESSA, is a 58 F who presents to the office today for an acute visit for diarrhea. Patient reports she has a chronic history of constipation. She had an episode of constipation approximately 3 weeks ago and took milk of magnesia and has had diarrhea ever since. Over the course of the past 3 weeks she has had watery diarrhea on average 5 episodes per day. She has intermittent lower abdominal cramping. She has had heartburn intermittently and utilizes [id number] Pepcid with relief. She also feels fatigued, has chills and abdominal bloating. She has had intermittent nausea but no vomiting. She reports diarrhea is watery and denies blood or mucus in stool. She denies any recent travel, fever, upper respiratory infection symptoms, ill contacts, consumption of undercooked or unpasteurized foods, recent antibiotic use. She researched her symptoms and found that meloxicam may cause colitis so she stopped meloxicam 6 days ago and feels that her stools a little less watery. She also tried adding Benefiber and a probiotic. She has tried jxss-vqh-lpshdoq Imodium which she reports decreases the frequency of episodes of diarrhea and slightly bulk stool. She reports that she had a colonoscopy in 2014 and 2017 that was unremarkable. She states she previously had it a colonoscopy in 2015 due to similar symptoms and was diagnosed with cholangitis colitis. This was self resolving. She reports decreased appetite. She is stayi (more content not included)... Normal [facility] Internal Medicine Office Vis sofi 04-27-2024 Internal Medicine Office Visit [facility] [address] [place] [address] [place] [address] OFFICE VISIT Date of Service: 04/27/24 MR#: [id number] Acct: [id number] Name: MORENO VANESSA Rep #: [id number] : 1965 Provider: MIAH turk Age/Sex: 58/F Location: [facility] Status: Signed Intake Vital Signs 01/20/24 14:03 04/13/24 08:47 04/27/24 14:02 Height 5 ft 9 in 5 ft 9 in 5 ft 9 in Weight: 190 lb 193 lb 13 oz 192 lb 4 oz BMI 28.0 28.6 28.3 BP 104/70 104/58 L 124/62 H Blood Pressure Location Lt brachial Rt brachial Lt brachial Position Sitting Sitting Sitting Respiration 16 16 Pulse 86 88 113 H Pulse Source Monitor Monitor Monitor Temp 98.9 F 98.0 F 97.3 F L Temp Source Temporal Temporal Temporal Pulse Oximetry (%) 97 97 96 Oxygen Delivery Method room air room air room air Intake Visit Reasons: 3 m fu Chief Complaint: 3m f/u Service Developer Required: No Accompanied by: Self Is patient in pain?: No Allergies Sulfa (Sulfonamide Antibiotics) Allergy (Mild, Verified 04/27/24 13:57) rash Medications ???Medication ???Instructions ???Recorded ???Confirmed ???Type multivitamin 1 tab PO DAILY 06/17/22 04/27/24 History ascorbate calcium (vitamin C) 500 500 mg PO DAILY 09/24/22 04/27/24 History mg tablet calcium carbonate (Calcium 600) 600 mg PO DAILY 09/24/22 04/27/24 History cholecalciferol (vitamin D3) 125 125 mcg PO DAILY 09/24/22 04/27/24 History mcg (5,000 unit) tablet flaxseed oil 1,000 mg capsule 1,000 mg PO DAILY 09/24/22 04/27/24 History topiramate 25 mg tablet (Topamax) 25 mg PO BID #60 tabs 10/14/23 04/27/24 Rx budesonide-formoterol HFA 160 2 puff inhalation .Q4-6 PRN 11/05/23 04/27/24 Rx mcg-4.5 mcg/actuation aerosol shortness of breath or wheezing inhaler (Symbicort) #10.2 grams estradiol 1 mg tablet (Estrace) 1 mg PO DAILY #90 tabs 01/13/24 04/27/24 Rx baclofen 10 mg tablet See Rx Instructions .Route QDAY 03/13/24 04/27/24 Rx #20 tabs bupropion HCl 300 mg 24 hr tablet, 300 mg PO QAM #30 tabs 04/07/24 04/27/24 Rx extended release (Wellbutrin XL) fluoxetine 10 mg capsule (Prozac) 10 mg PO DAILY #30 caps 04/07/24 04/27/24 Rx meloxicam 15 mg tablet 15 mg PO DAILY #90 tabs 04/12/24 04/27/24 Rx duloxetine 60 mg capsule,delayed 60 mg PO QHS #30 caps 04/18/24 04/27/24 Rx release PFSH Medical History Neuropathy of right foot Peripheral neuropathy Erythromelalgia Scoliosis Back muscle spasm Osteoarthritis Irritable bowel syndrome Generalized headaches UTI (urinary tract infection) Asthma Seasonal allergies Degenerative disc disease Depression Surgical History History of surgical procedure H/O tubal ligation S/P laparoscopic assisted vaginal hysterectomy (LAVH) delivery delivered Family History Other Adopted Social History adopted: Yes household members: spouse current occupational status: employed current occupation: [employer] Smoking Status: Never smoker Electronic Cigarette Use: not used alcohol intake: current alcohol intake frequency: holidays/special occasions only details: social substance use type: does not use caffeine: Yes what type of physical activity do you participate in: none seatbelt use: always do you feel safe at home: Yes additional social history: [facility] HPI Chief Complaint: 3m f/u Details: MORENO VANESSA, is a 58 F who presents to the office today for routine f/u. She is up-to-date on routine blood work, and is due for mammogram for preventative screenings. She is up-to-date on vaccinations with the exception of shingles vaccine which she declines today. She does not smoke and does not need any refills. She reports she is eating somewhat healthy. Since her last visit she has been evaluated by a vascular physician at [facility] and had ABIs conducted last month. Per neurology's note, these were normal but did show small vessel disease. She was prescribed zyrtec for this/erythromelagia. She was also evaluated by neurology for erythromelalgia. She was placed on duloxetine 30 mg nightly x 1 week and recently increased to 60 mg nightly thereafter. Lyrica was discontinued and she stopped this approximately 1 week ago. She does report that Lyrica caused some brain fog which seems to be improving since discontinuing the medication. It is documented that discontinuation of fluoxetine was recommended however patient reports that she was told that she may continue this if necessary. Fluoxetine was prescribed 04/10/2024 due to ongoing anger. At that time patient was also instructed to decrease her Wellbutrin from 450 to 300 mg daily (more content not included)... Normal [facility] Neurology Visit Reporton Neurology Visit Report [facility] [address] [place] [address] OFFICE VISIT Date of Service: 04/13/24 MR#: [id number] Acct: [id number] Name: MORENO VANESSA Rep #: [id number] : 1965 Provider: Dr. David galicia MD Age/Sex: 58/F Location: [facility] Status: Signed with Addenda ADDENDUM by Dr. David David MD on 06/21/24 at 1759 Addendum Addendum (06/21/2024): A serum free light chains has been ordered to evaluate her polyneuropathy. 06/21/241758 Date David David MD cc: Dr. Jill Zelaya MD * Signed HPI HPI Chief Complaint: Establish Care Details: History: The patient is a 58-year-old right-handed woman with a past medical history of asthma who presents for evaluation of polyneuropathy. Since around 2019, she has been experiencing episodes of erythema affecting the toes of both feet and associated numbness and intermittent stinging pain in the feet. The erythema in her toes is exacerbated by standing or walking and also in hot ambient temperature. Her neuropathic pain is worse at night. She has had chronic low back pain since she was in her 20s. She also experiences lumbar region muscle spasms. She had previously seen a panel edge painter, Dr. Gold. She is now being seen at the [facility] and has received lumbar radiofrequency ablation as well as SI joint injections and these have been of benefit. She has lumbar and multilevel degenerative joint/disc disease. She has seen an orthopedic surgeon, Dr. Urban, as well as an orthopedic surgeon at the [facility] and surgical intervention for her lumbar pathology was not felt to be warranted. She denies having weakness in the legs. She has been diagnosed with erythromelalgia and is seeing a physician at the [facility] for this and has been prescribed cetirizine and this has been of some benefit. She previously took gabapentin for her lower extremity neuropathic pain and this was not of benefit. Pregabalin 100 mg daily for her neuropathic pain has been of modest benefit. EMG/nerve conduction studies of the lower extremities reveal a sensorimotor polyneuropathy. Bilateral ABIs reveal normal ankle-brachial index in both legs and bilateral lower extremity small vessel disease versus vasoconstriction. She has depression for which she takes bupropion XL. She has had easy anger and recently started fluoxetine and this has been of some benefit. Past Medical History: As above. There is no history of hypertension, diabetes mellitus, heart disease, stroke, seizure, thyroid disease, cancer, renal disease or sleep apnea. Social History: The patient does not smoke tobacco. There is no history of alcohol abuse. Family History: The patient was adopted and her family history is unknown. Review of Systems: As above. The patient has not had any recent fever, rash, weight change, chest pain, shortness of breath, or urinary problems. She has irritable bowel syndrome. She has had some insomnia. Physical Exam: General: Well-developed, well-nourished female in no acute distress. Neuro: The patient is awake and alert and responds appropriately; speech is fluent; language function is within normal limits Cranial nerves: PERRL, 3mm bilaterally; EOMI; visual fishman are full; visual acuity is 20/30 on the right and 20/25 on the left; face is symmetrical; tongue is midline; there are no deficits to pinprick Cerebellar system: No nystagmus or dysmetria Deep tendon reflexes: +2 at the knees, biceps bilaterally, brachial radialis bilaterally and triceps bilaterally and absent at the ankles; plantar responses are downward bilaterally Motor: Strength 5/5 in the biceps bilaterally, abductor pollicis brevis muscles bilaterally, first dorsal interosseous muscles bilaterally, iliopsoas bilaterally, quadriceps bilaterally and foot dorsiflexors bilaterally; no drift Sensory: Decreased vibration is noted in the left foot; there are no deficits to vibration in the right foot; there are no deficits to soft touch; decreased pinprick is noted in the left foot Gait: Unremarkable HEENT: Normocephalic; atraumatic Neck: No bruits Heart: Regular rhythm and rate Extremities: No cyanosis or edema; left dorsalis pedis pulse is +2; right dorsalis pedis and right posterior tibial pulses are nonpalpable; the toes of both feet are erythematous Supplemental Info Bilateral lower extremity EMG/nerve conduction studies (07/23/2022): In the right lower limb: - The peroneal (fibular) motor distal latency is normal. The amplitude is moderately decreased. There is mild slowing of the conduction velocity in the calf and around the fibular head. - The tibial motor distal latency is normal. The amplitude is moderately decreased. There is mild slowing of the conduction velocity in the calf. - The sural sensor (more content not included)... Normal [facility] CNOVon 03-30-2024 OV Office Visit (PERVMN ) MORENO VANESSA ([id number]) 1965 F Date Time Provider Department 03/30/24 3:45 PM ROSINA ESTRADA PERSamina During your visit today, we recorded the following information about you: Pulse Blood pressure Weight 72/minute 113/70 86.6 kg Rosina Estrada MD 04/24/2024 9:16 AM Signed [facility] [place] [facility] Department of Cardiovascular Medicine SECTION OF VASCULAR MEDICINE OUTPATIENT VISIT DATE March 30, 2024 OUTPATIENT VISIT TYPE ESTABLISHED Follow up regarding: erythromelalgia Allergies: is allergic to ciprofloxacin and hay fever [seasonal allergies]. Medications: Current Outpatient Medications Medication Sig Cetirizine (ZYRTEC) 10 mg cap Take 1 capsule by mouth once daily. baclofen (LIORESAL) 10 mg tablet Take 1 tablet by mouth as needed. buPROPion XL (WELLBUTRIN XL) 300 mg 24 hr tablet Take 1 tablet by mouth once daily. cephALEXin (KEFLEX) 250 mg capsule TAKE 1 CAPSULE BY MOUTH AFTER INTERCOURSE cholecalciferol (VITAMIN D3) 5,000 unit tab Take 5,000 Units by mouth once daily. pregabalin (LYRICA) 100 mg capsule Take 1 capsule by mouth two times a day. 100mg in AM and 150mg in PM estradiol (ESTRACE) 1 mg tablet Take 1 tablet by mouth once daily. MULTIVITAMIN TAB Take one(1) tablet daily. No current facility-administered medications for this visit. Review of history: [facility] 12/09/2023 -- previously saw Dr. Kilgore as well. 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 Subjective: Tried cetirizine -- she admits being surprised (I am a little bit too!) but has found that this actually has helped fairly well. No wounds or other fixed skin changes, exam the same. Reviewed PVR. Discussed next steps for evaluation with Neurology for small fiber neuropathy. Objective: BP 113/70 (BP Site: Right Arm, BP Position: Sitting, BP Cuff Size: Regular Adult) Pulse 72 Wt 86.6 kg (191 lb) LMP 10/10/2007 BMI 27.41 kg/m? General: Alert and oriented, in no acute distress, pleasant mood. Skin: Healthy, intact, no ulcerations, no rashes. Labs Reviewed Imaging 03/30/2024 PVR ank/becker/toe IMPRESSION RIGHT SIDE Resting right ankle brachial index: 1.18 Normal ankle brachial index at rest in the right leg. Right ankle: Normal at rest. Right small vessel disease versus vasoconstriction. LEFT SIDE Resting left ankle brachial index: 1.16 Normal ankle brachial index at rest in the left leg. Left ankle: Normal at rest. Left small vessel disease versus vasoconstriction. 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 PMHx significant for: __IBS __Degenerative disc disease s/p facet ablations __S/p vaginal hysterectomy __Depression __No hx of tobacco use __Body mass index is 26.69 kg/m?. __FHx -- unknown, patient adopted. Today 03/30/2024 is my second visit with her, previously seen by my colleague Dr. Kilgore with [facility] 03/05/2023. Presumptive diagnosis of erythromelagia -- also has had prior testing indicating polyneuropathy. Recalls that she had facet joint ablations in Nov 2021 and in March 2022 had worsening of foot symptoms. Recalls original onset in 02/2021 -- would take off shoes and feet would be bright red. It was the next year that she started the caudal injections for back. At appt last year she was given Rx for topical ketamine / amitriptyline and orders for PVR -- not yet complete. Cost was an issue with topical cream. Lyrica 100mg in AM and 150mg at night. Reports using Baclofen for back spasms but also to aid sleep. Admits to using ice on feet that that works better than anything else she has found. Reviewed need to take precautions to avoid frostbite injury, minimize direct contact and limit time using. She brought labs that had been previously requested -- reviewed with her, normal. JAK2 is in process. Discussed that EM has associations with many different conditions, particularly hematologic and neurologic -- presents diagnostic and especially management difficulties as likely several different disease entities are being lumped into same category of painful red swollen limb. Likely some overlap with acrocyanosis given dependent filling of skin -- discussed acrocyanosis is assoc with underlying nerve dysfunction as well. Seen for follow up. Cetirizine has helped symptoms. Reviewed PVR -- normal SERGO and waveforms at the ankle and midfoot, abnormal digit waveforms (above). Discussed that some patients have a phenotype of both erythromelalgia with inappropriate relaxation of vessels + component of Raynauds with tendency for spasm as well. Reviewed next steps in terms of neuro evaluation and other accessible treatments. She reports that the JAK2 testing was normal, will u (more content not included)... Normal [facility] PVR ANK/BECKER/TOE PACO VAS LAB on 03-30-2024 PVR ANK/BECKER/TOE PACO VAS LAB Non-Invasive Vascular Laboratory [facility] J Lower Extremity Arterial Physiology Study Bilateral/Complete Date of service/time: 03/30/2024 2:16:02 PM Name: MRS. MORENO VANESSA Date of : 1965 Age: 58 years Gender: F Clinical Indication Abnormal pulses. TECHNIQUE -------- An arterial physiological examination was performed, including measurement of blood pressures using continuous wave Doppler and recording of plethysmographic with or without Doppler waveforms at the below-mentioned limb segments. FINDINGS -------- RIGHT SIDE AT REST Right Pressures Brachial: 97 mmHg Ankle dorsalis pedis: 109 mmHg SERGO: 1.06 Ankle posterior tibial: 122 mmHg SERGO: 1.18 Right PVR Waveforms Ankle: Normal. Transmetatarsal: Normal. Digit: Severely dampened. LEFT SIDE AT REST Left Pressures Brachial: 103 mmHg Ankle dorsalis pedis: 105 mmHg SERGO: 1.02 Ankle posterior tibial: 119 mmHg SERGO: 1.16 Left PVR Waveforms Ankle: Normal. Transmetatarsal: Normal. Digit: Moderately dampened. IMPRESSION RIGHT SIDE Resting right ankle brachial index: 1.18 Normal ankle brachial index at rest in the right leg. Right ankle: Normal at rest. Right small vessel disease versus vasoconstriction. LEFT SIDE Resting left ankle brachial index: 1.16 Normal ankle brachial index at rest in the left leg. Left ankle: Normal at rest. Left small vessel disease versus vasoconstriction. Technologist: Marisela Harris RVT Ordering physician: ROSINA ESTRADA Interpreting physician: EMIR Thurston DO Final CC [employer] [facility] Image : [id number] sSISUID See Link below for Image Normal [facility] CNOVon 12-09-2023 CNOV Office Visit (PERVMN ) MORENO VANESSA ([id number]) 1965 F Date Time Provider Department 12/09/23 2:45 PM ROSINA ESTRADA During your visit today, we recorded the following information about you: Pulse Blood pressure Weight Height 83/minute 123/65 84.4 kg 1.778 m Rosina Estrada MD 01/03/2024 1:00 PM [facility] [place] Bhavik Alexander Department of Cardiovascular Medicine SECTION OF VASCULAR MEDICINE OUTPATIENT VISIT DATE December 09, 2023 OUTPATIENT VISIT TYPE CONSULTATION Consult regarding: erythromelalgia Consult requested by: Robby Kilgore My final recommendations will be communicated back to the requesting physician by way of the shared medical record or by letter. Primary care physician: Jill Zelaya MD History of present illness: Moreno Vanessa is a 58 year old female who presents as New Consult (Erythromelalgia) PMHx significant for: __IBS __Degenerative disc disease s/p facet ablations __S/p vaginal hysterectomy __Depression __No hx of tobacco use __Body mass index is 26.69 kg/m?. __FHx -- unknown, patient adopted. Seen to establish care, previously seen by my colleague Dr. Kilgore with [facility] 03/05/2023. Presumptive diagnosis of erythromelagia. She also had prior evaluation with Neurology and was found to have a neuropathy (small vs large fiber?). Gave Rx for topical ketamine / amitriptyline. 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 Recalls that she had facet joint ablations in Nov 2021 and in March 2022 had worsening of foot symptoms. Recalls original onset in 02/2021 -- would take off shoes and feet would be bright red. It was the next year that she started the caudal injections for back. Had been on / off gabapentin over the years. Had been on gabapentin 600mg at night (made her too sleepy during the day for work). Now on Lyrica 100mg in AM and 150mg at night. On baclofen 10mg PRN at night -- since 2021. Originally using for back spasms, now uses it to get through the night / helps to fall asleep. Admits that nothing works better than ice. She brought labs that had been previously requested -- normal. JAK2 is in process. Allergies: is allergic to hay fever [other] and septra [sulfamethoxazole-trimethop rim]. Medications: baclofen (LIORESAL) 10 mg tablet Take 1 tablet by mouth as needed. buPROPion XL (WELLBUTRIN XL) 300 mg 24 hr tablet Take 1 tablet by mouth once daily. cephALEXin (KEFLEX) 250 mg capsule TAKE 1 CAPSULE BY MOUTH AFTER INTERCOURSE cholecalciferol (VITAMIN D3) 5,000 unit tab Take 5,000 Units by mouth once daily. pregabalin (LYRICA) 100 mg capsule Take 1 capsule by mouth two times a day. 100mg in AM and 150mg in PM estradiol (ESTRACE) 1 mg tablet Take 1 tablet by mouth once daily. IBUPROFEN ORAL Take by mouth as needed. MULTIVITAMIN TAB Take one(1) tablet daily. Past medical history: has a past medical history of Backache, unspecified, Degeneration of intervertebral disc, site unspecified (02/02/2006), Depressive disorder, not elsewhere classified (02/02/2006), Diarrhea, Dysmenorrhea, Health examination of defined subpopulation, Irritable bowel syndrome (2001), Other malaise and fatigue (03/2003), Pain in joint, pelvic region and thigh, Palpitations (10/13/2000), and Unspecified asthma(493.90). She has no past medical history of Atrial fibrillation ([facility]), Autoimmune disease ([facility]), Cancer ([facility]), Chronic obstructive pulmonary disease (COPD) ([facility]), Chronic renal insufficiency, Congestive heart failure ([facility]), Coronary artery disease, Diabetes ([facility]), Epilepsy ([facility]), Fibromyalgia, Hypertension, Hypothyroidism, Motor vehicle accident, Obesity, Obstructive sleep apnea, Sleep disorder, Steroid long-term use, Stroke ([facility]), Substance abuse ([facility]), Syncope, or Traumatic brain injury ([facility]). Past surgical history: has a past surgical history that includes delivery only; lig/trnsxj flp tube abdl/vag appr uni/bi; colonoscopy flx dx w/collj spec when pfrmd (09/10/2006); vaginal hysterectomy uterus 250 gm/< (10/25/12); post colporrhaphy rectocele w/wo perineorrhaphy (10/25/12); and sling oper stres incontinence (10/25/12). Family history: family history includes Headache in her daughter; Other in an other family member. She was adopted. Social history: reports that she has never smoked. She has never used smokeless tobacco. She reports current alcohol use. She reports that she does not use drugs. REVIEW OF SYSTEMS: Review of systems: General Fever or chills - No Night sweats - No Change in weight - No Lumps in groin, underarms - No Neurological Headaches - YES Seizures - No Passing out - No Dizziness/light headedness - No Numbness, tingling, pins or needles - YES Weakness in ar (more content not included)... Normal [facility] Absolute lymphocyte countOrd ered By: Jill Zelaya on 12-08-2023 Lymphocytes Auto (Unsp spec) [#/Vol] 1.22 10*3/uL 0.83-4.51 [facility] Automated lymphocyte count a s percentage of total leukocytesOrdered By: Jill Zelaya on 12-08-2023 Lymphocytes/100 WBC Auto (Unsp spec) 20.0 % 19-41 [facility] Basophil percentageOrdered B y: Jill Zelaya on 12-08-2023 Basophils/100 WBC (Bld) 1.3 % 0-1 [facility] Bilirubin [Mass/Vol] 0.30 mg/dL 0.20-1.00 [facility] Comment on above: For patients on eltr ombopag therapy, use of Dimension Parker TBIL is not recommended. Chloride [Moles/Vol] 110 mmol/L 98-107 [facility] Cholesterol [Mass/Vol] 185 mg/dL <200 [facility] Comment on above: <200 mg/dL Desirable 200-240 mg/dL Borderline >240 mg/dL High Risk Eosinophils/100 WBC (Bld) 3.8 % 0-5 [facility] Glucose [Mass/Vol] 102 mg/dL 74-106 [facility] Comment on above: Fasting Glucose resu lt from 100 to 125 mg/dL suggests IMPAIRED HOMEOSTASIS per A.D.A. criteria. Hemoglobin (Bld) [Mass/Vol] 13.1 g/dL 12.0-15.0 [facility] Monocytes/100 WBC (Bld) 4.9 % 0-10 [facility] Neutrophils (Bld) [#/Vol] 4.2 10*3/uL 2.0-7.7 [facility] Neutrophils/100 WBC (Bld) 69.7 % 47-70 [facility] Potassium [Moles/Vol] 4.0 mmol/L 3.5-5.1 [facility] Protein [Mass/Vol] 6.6 g/dL 6.4-8.2 [facility] Sodium [Moles/Vol] 140 mmol/L 136-145 [facility] Triglyceride [Mass/Vol] 99 mg/dL <199 [facility] Comment on above: The drugs N-Acetylcy steine and Metamizole may falsely depress this assay.Serum Triglycerides Reference Interval Normal <150 mg/dL Borderline high 150 - 199 mg/dL High 200 - 499 mg/dL Very High > or = 500 mg/dL WBC (Bld) [#/Vol] 6.1 10*3/uL 4.4-11.0 [facility] Determination of erythrocyte mean corpuscular volume (MCV)Ordered By: Jill Zelaya on 12-08-2023 MCV (RBC) [Entitic vol] 93.2 fL 81-99 [facility] Erythrocyte distribution wid th ratioOrdered By: Jill Zelaya on 12-08-2023 Erythrocyte distribution width (RBC) [Ratio] 12.5 % 11.6-14.6 [facility] Erythrocyte distribution wid th standard deviationOrdered By: Jill Zelaya on 12-08-2023 Erythrocyte distribution width (RBC) [Entitic vol] 42.5 fL 35.1-43.9 [facility] Hematocrit Auto (Bld) [Volum e fraction]Ordered By: Jill Zelaya on 12-08-2023 Hematocrit (Bld) [Volume fraction] 39.7 % 37-47 [facility] Immature granulocytes/100 WB C Auto (Bld)Ordered By: Jill Zelaya on 12-08-2023 Immature granulocytes/100 WBC (Bld) 0.300 % 0.0-0.9 [facility] Comment on above: IG% - Immature Granu locytes (promyelocytes, myelocytes and metamyelocytes) > 1% indicates that a LEFT SHIFT is Present. Laboratory - Chemistry and C hemistry - challengeOrdered By: Jill Zelaya on 12-08-2023 Albumin/Globulin [Mass ratio] 1.2 {ratio} 0.9-2.4 [facility] ALP [Catalytic activity/Vol] 65 U/L 45-117 [facility] ALT [Catalytic activity/Vol] 16 U/L 13-56 [facility] Cholesterol in HDL [Mass/Vol] 69 mg/dL >40 [facility] Comment on above: The drugs N-Acetylcy steine and Metamizole may falsely depress this assay. Reference Range HDL <40 mg/dL Low HDL Cholesterol HDL >or= 60 mg/dL High HDL Cholesterol Cholesterol in LDL [Mass/Vol] 96 mg/dL 0-130 [facility] CO2 [Moles/Vol] 26.0 mmol/L 21.0-32.0 [facility] Globulin (S) [Mass/Vol] 3.0 g/dL 2.2-4.2 [facility] Urea nitrogen/Creatinine [Mass ratio] 12.4 mg/mg 10-20 [facility] Laboratory - Hematology and Cell countsOrdered By: Jill Zelaya on 12-08-2023 MCH (RBC) [Entitic mass] 30.8 pg 27.0-32.0 [facility] MCHC (RBC) [Mass/Vol] 33.0 g/dL 32-36 [facility] Nucleated RBC/100 WBC (Bld) [Ratio] 0 % 0-5 [facility] Platelet mean volume (Bld) [Entitic vol] 9.0 fL 6.2-12.0 [facility] Platelets (Bld) [#/Vol] 228 10*3/uL 150-450 [facility] No Panel InformationOrdered By: Jill Zelaya on 12-08-2023 Estimated GFR (MDRD) Amer 76 mL/min >60 [facility] Comment on above: GFR Calc Estimated GFR (MDRD) Non-Af Amer 63 mL/min >60 [facility] Comment on above: Non- GFR Calc Miscellaneous Test See comment [facility] Comment on above: TEST RESULTS LIMITSJ AK2 Mutation Analysis, Qual JAK2 V617F mutation detectionResult: NEGATIVE for the JAK2 V617F mutation.Interpretation: The G to T nucleotide change encoding the [id number] was not detected. This result does not rule out the presence of the JAK2 mutation at a level below the sensitivity of detection of this assay, or the presence of other mutations within JAK2 not detected by this assay. This result does not rule out a diagnosis of polycythemia vera, essential thrombocythemia or idiopathic myelofibrosis as the V617F mutation is not detected in all patients with these disorders.Background: JAK2 is a cytoplasmic tyrosine kinase with a del rosario role in signaltransduction from multiple hematopoietic growth factor receptors. Apoint mutation within exon 14 of the JAK2 gene (R0518D) encoding avaline to phenylalanine substitution at position 617 of the XZC7ggyznal (V617F) has been identified in most patients with polycythemia vera, and in about half of those with either essential thrombocythemia or idiopathic myelofibrosis. The V617F has also been detected, although infrequently, in other myeloid disorders such as chronic myelomonocytic leukemia and chronic neutrophilic luekemia. V617F is an acquired mutation that alters a highly conserved valine present in the negative regulatory JH2 domain of the JAK2 protein and is predicted to dysregulate kinase activity.Methodology:Total genomic DNA was extracted and subjected to TaqMan real-time PCR amplification/detection. Two amplification products per sample were monitored by real-time PCR using primers/probes specific to JAK2 wild type (WT) and JAK2 mutant V617F. The [id number] Absolute Quantitation software will compare the patient specimen valuse to the standard curves and generate percent values for wild type and mutant type.In vitro studies have indicated that this assay has an analyticalsensitivity of 1%.References:Garfield PALMER, Sarath RANDALL, Lucho PJ, et al. Acquired mutation of thetyrosine kinase JAK2 in human myeloproliferative disorders. Lancet.2005 Dec 20-; 365(0511):3269-4564.Christian Mandel, Fabien Bowens, Alondra Miller JP. A unique clonal JAK2 mutation leading to constitutive signaling causes polycythaemia vera. Nature. 2005 Jan 28; 613(1474):8855-5441.Emery R, Peter F, Michelle , et al. A ugho-rj-liwuynmkmeqgwenp of JAK2 in myeloproliferative disorders. N Engl J Med. 2005 Jan 29; 352(54):0771-3722.Director Review: Technical Component performed at [facility] RTPProfessional Component performed by:Carolynn Marrero, PhD, FACMGDirector, Molecular [address] , [place] [id number]: This test was developed and its performance characteristicsdetermined by [facility]. It has not been cleared or approvedby the Food and Drug Administration. TESTING PERFORMED AT [facility]. ORIGINAL REPORT ON FILE IN LAB CONTAINS ADDITIONAL TEST SITE INFORMATION. VLDL Cholesterol 20 mg/dL 5-40 [facility] RBC Auto (Bld) [#/Vol]Ordere d By: Jill Zelaya on 12-08-2023 RBC (Bld) [#/Vol] 4.26 10*6/uL 4.2-5.4 [facility] Serum or plasma calcium baljit urement (mass/volume)Ordered By: Jill Zelaya on 12-08-2023 Calcium [Mass/Vol] 8.9 mg/dL 8.5-10.1 [facility] Serum or plasma creatinine m easurement (mass/volume)Ordered By: Jill Zelaya on 12-08-2023 Creatinine [Mass/Vol] 0.96 mg/dL 0.55-1.02 [facility] Comment on above: The validity of the calculated GFR & GFRAA in patients over 70 years has not been determined. Clinical correlation is essential. Serum or plasma thyroid stim ulating hormone (TSH) measurement (units/volume)Ordered By: Jill Zelaya on 12-08-2023 TSH Qn 1.29 uIU/mL 0.358-3.74 [facility] Serum or plasma urea nitroge n measurement (mass/volume)Ordered By: Jill Zelaya on 12-08-2023 Urea nitrogen [Mass/Vol] 12 mg/dL 7-18 [facility] Thin prep Papanicolaou smear with manual screeningOrdered By: Jill Zelaya on 12-08-2023 Thin prep Papanicolaou smear with manual screening 3.6 g/dL 3.2-5.0 [facility] Thin prep Papanicolaou smear with manual screening 9 U/L 15-37 [facility] Thin prep Papanicolaou smear with manual screening 4 5-15 [facility] Laboratory - Microbiology an d Antimicrobial susceptibilityOrdered By: Zoraida Segura on 11-05-2023 SARS-CoV-2 (COVID-19) RNA HANNAH+probe Ql (Unsp spec) [facility] 36on 03-12-2023 36 Called patient to [facility] New Patient Appt no answer left a detailed message for scheduling Normal [facility] Absolute lymphocyte countOrd ered By: Dr. Zelaya on 09-24-2022 Lymphocytes Auto (Unsp spec) [#/Vol] 0.95 10*3/uL 0.83-4.51 [facility] Basophil percentageOrdered B y: Dr. Zelaya on 09-24-2022 Basophil percentage < 0.2 AI 0.0-0.9 [facility] Basophils/100 WBC (Bld) 0.8 % 0-1 [facility] Eosinophils/100 WBC (Bld) 5.7 % 0-5 [facility] Neutrophils (Bld) [#/Vol] 4.3 10*3/uL 2.0-7.7 [facility] Neutrophils/100 WBC (Bld) 72.3 % 47-70 [facility] WBC (Bld) [#/Vol] 5.9 10*3/uL 4.4-11.0 [facility] Blood erythrocytes count (nu mber/volume)Ordered By: Dr. Zelaya on 09-24-2022 RBC (Bld) [#/Vol] 4.27 10*6/uL 4.2-5.4 [facility] Blood hemoglobin measurement (mass/volume)Ordered By: Dr. Zelaya on 09-24-2022 Hemoglobin (Bld) [Mass/Vol] 13.3 g/dL 12.0-15.0 [facility] Blood lymphocytes/100 leukoc ytesOrdered By: Dr. Zelaya on 09-24-2022 Lymphocytes/100 WBC (Bld) 16.0 % 19-41 [facility] Blood monocytes/100 leukocyt esOrdered By: Dr. Zelaya on 09-24-2022 Monocytes/100 WBC (Bld) 4.9 % 0-10 [facility] Blood platelet mean volumeOr dered By: Dr. Zelaya on 09-24-2022 Platelet mean volume (Bld) [Entitic vol] 9.8 fL 6.2-12.0 [facility] Determination of erythrocyte mean corpuscular volume (MCV)Ordered By: Dr. Zelaya on 09-24-2022 MCV (RBC) [Entitic vol] 95.8 fL 81-99 [facility] Erythrocyte sedimentation ra teOrdered By: Dr. Zelaya on 09-24-2022 ESR (Bld) [Velocity] 5 mm/h 0-30 [facility] Hematocrit Auto (Bld) [Volum e fraction]Ordered By: Dr. Zelaya on 09-24-2022 Hematocrit (Bld) [Volume fraction] 40.9 % 37-47 [facility] Interpretation of Borrelia b urgdorferi antibody assayOrdered By: Dr. Zelaya on 09-24-2022 B. burgdorferi Ab (S) [Interp] REF LAB [facility] Laboratory - Hematology and Cell countsOrdered By: Dr. Zelaya on 09-24-2022 Erythrocyte distribution width (RBC) [Entitic vol] 42.5 fL 35.1-43.9 [facility] Erythrocyte distribution width (RBC) [Ratio] 12.2 % 11.6-14.6 [facility] Immature granulocytes/100 WBC (Bld) 0.300 % 0.0-0.9 [facility] Comment on above: IG% - Immature Granu locytes (promyelocytes, myelocytes and metamyelocytes) > 1% indicates that a LEFT SHIFT is Present. MCH (RBC) [Entitic mass] 31.1 pg 27.0-32.0 [facility] Nucleated RBC/100 WBC (Bld) [Ratio] 0 % 0-5 [facility] MCHC Auto (RBC) [Mass/Vol]Or dered By: Dr. Zelaya on 09-24-2022 MCHC (RBC) [Mass/Vol] 32.5 g/dL 32-36 [facility] No Panel InformationOrdered By: Dr. Zelaya on 09-24-2022 Centromere B Antibody <0.2 AI 0.0-0.9 [facility] SALES TRAINING COORDINATOR Antibody <0.2 AI 0.0-0.9 [facility] Platelets bldOrdered By: Dr. Zelaya on 09-24-2022 Platelets (Bld) [#/Vol] 247 10*3/uL 150-450 [facility] Serum DNA double strand anti body assay (units/volume)Ordered By: Dr. Zleaya on 09-24-2022 DNA double strand Ab Qn (S) 4 [IU]/mL 0-9 [facility] Comment on above: Negative <5 Equivoca l 5 - 9 Positive >9 Serum Steffany-1 antibody assay (u nits/volume)Ordered By: Dr. Zelaya on 09-24-2022 Steffany-1 extractable nuclear Ab Qn (S) <0.2 AI 0.0-0.9 [facility] Serum Scl-70 extractable nuc lear antibody assay (units/volume)Ordered By: Dr. Zelaya on 09-24-2022 SCL-70 extractable nuclear Ab Qn (S) <0.2 AI 0.0-0.9 [facility] Serum Upton extractable nucl ear antibody detectionOrdered By: Dr. Zelaya on 09-24-2022 Upton extractable nuclear Ab Ql (S) <0.2 AI 0.0-0.9 [facility] Thin prep Papanicolaou smear with manual screeningOrdered By: Dr. Zelaya on 09-24-2022 Thin prep Papanicolaou smear with manual screening Negative Negative [facility] Comment on above: Lyme antibodies not detected. Reflex testing is notindicated.No laboratory evidence of infection with B. burgdorferi(Lyme disease). Negative results may occur in patientsrecently infected (less than or equal to 14 days) with B.burgdorferi. If recent infection is suspected, repeattesting on a new sample collected in 7 to 14 days isrecommended.Performed at: [facility] [id number] Director: Jeff Rodriguez PhD, Phone: [phone] 24 hour urine alpha 2 globul in/total protein ratio by electrophoresis (mass fraction)Ordered By: Dr. Corbin on 09-10-2022 Alpha 2 globulin Elph (24H U) [Mass fraction] 17.3 % . [facility] 24 hour urine beta globulin/ total protein ratio by electrophoresis (mass fraction)Ordered By: Dr. Corbin on 09-10-2022 Beta globulin Elph (24H U) [Mass fraction] 47.9 % . [facility] 24 hour urine gamma globulin /total protein ratio by electrophoresis (mass fraction)Ordered By: Dr. Corbin on 09-10-2022 Gamma globulin Elph (24H U) [Mass fraction] 9.3 % . [facility] Albumin Elph [Mass/Vol]Order ed By: Dr. Corbin on 09-10-2022 Albumin [Mass/Vol] 3.9 g/dL 2.9-4.4 [facility] Basophil percentageOrdered B y: Dr. Corbin on 09-10-2022 Basophil percentage 3 ug/L 0-9 [facility] Comment on above: Detection Limit = 1 Bilirubin [Mass/Vol] 0.20 mg/dL 0.20-1.00 [facility] Comment on above: For patients on eltr ombopag therapy, use of Dimension Parker TBIL is not recommended. Chloride [Moles/Vol] 104 mmol/L 98-107 [facility] Glucose [Mass/Vol] 96 mg/dL 74-106 [facility] Potassium [Moles/Vol] 4.0 mmol/L 3.5-5.1 [facility] Protein [Mass/Vol] 6.5 g/dL 6.4-8.2 [facility] Sodium [Moles/Vol] 140 mmol/L 136-145 [facility] Blood mercury measurement (m ass/volume)Ordered By: Dr. Corbin on 09-10-2022 Mercury (Bld) [Mass/Vol] < 1.0 ug/L 0.0-14.9 [facility] Comment on above: Environmental Exposu re: <15.0 Occupational Exposure: BOY - Inorganic Mercury: 15.0 Detection Limit = 1.0 Erythrocyte sedimentation ra teOrdered By: Dr. Corbin on 09-10-2022 ESR (Bld) [Velocity] mm/h 0-30 [facility] Interpretation of serum or p lasma protein pattern by immunofixation (narrative resultOrdered By: Dr. Corbin on 09-10-2022 Protein Fractions Immunofixation Ino [Interp] See comment [facility] Comment on above: Result: Not Observed Laboratory - Chemistry and C hemistry - challengeOrdered By: Dr. Corbin on 09-10-2022 ALP [Catalytic activity/Vol] 73 U/L 45-117 [facility] ALT [Catalytic activity/Vol] 20 U/L 13-56 [facility] CO2 [Moles/Vol] 29.0 mmol/L 21.0-32.0 [facility] Cobalamin (Vitamin B12) [Mass/Vol] 453 pg/mL 211-911 [facility] Urea nitrogen/Creatinine [Mass ratio] 16.7 mg/mg 10-20 [facility] No Panel InformationOrdered By: Dr. Corbin on 09-10-2022 Addendum Document Comment . [facility] Comment on above: Protein electrophore sis scan will follow via computer,mail, or lumber kiln operator delivery. Estimated GFR (MDRD) Amer 83 mL/min >60 [facility] Comment on above: GFR Calc Estimated GFR (MDRD) Non-Af Amer 68 mL/min >60 [facility] Comment on above: Non- GFR Calc Lead < 1.0 ug/dL 0.0-3.4 [facility] Comment on above: Testing performed by Inductively coupled plasma/MassSpectrometry. Environmental Exposure: WHO Recommendation <20.0 Occupational Exposure: OSHA Lead Std 40.0 BOY 30.0 Detection Limit = 1.0This test was developed and its performancecharacteristics determined by [employer]. It has not beencleared or approved by the Food and Drug Administration. Urine Immunofixation PEP Note Comment . [facility] Comment on above: Protein electrophore sis scan will follow via computer,mail, or lumber kiln operator delivery. Vitamin B6 Level 16.7 ug/L 3.4-65.2 [facility] Comment on above: Deficiency: <3.4 Mar ginal: 3.4 - 5.1 Adequate: >5.1 Whole Blood Vitamin B1 Level 238.4 nmol/L 66.5-200.0 [facility] Comment on above: Performed at: [facility] [id number] Director: Jeff Rodriguez PhD, Phone: [phone] at: [facility] [id number] Director: Kd Hannon MD, Phone: [phone] Serum [id number] measu rement by electrophoresisOrdered By: Dr. Corbin on 09-10-2022 Alpha 1 globulin Elph [Mass/Vol] 0.2 g/dL 0.0-0.4 [facility] Alpha 1 globulin Elph [Mass/Vol] 0.6 g/dL 0.4-1.0 [facility] Serum globulin measurement ( mass/volume)Ordered By: Dr. Corbin on 09-10-2022 Globulin (S) [Mass/Vol] 2.5 g/dL 2.2-3.9 [facility] Serum or plasma C reactive p rotein measurement (mass/volume)Ordered By: Dr. Corbin on 09-10-2022 CRP [Mass/Vol] mg/L 0.0-3.0 [facility] Comment on above: C-Reactive Protein ( CRP) provides useful information for thediagnosis, therapy and monitoring of inflammatory processesand associated diseases. For the evaluation of Relative Riskfor Cardiovascular Disease, a High Sensitivity CRP (HSCRP)should be ordered. Serum or plasma IgA measurem ent (mass/volume)Ordered By: Dr. Corbin on 09-10-2022 IgA [Mass/Vol] 94 mg/dL 87-352 [facility] Serum or plasma IgG measurem ent (mass/volume)Ordered By: Dr. Corbin on 09-10-2022 IgG [Mass/Vol] 775 mg/dL 586-1602 [facility] Serum or plasma IgM measurem ent (mass/volume)Ordered By: Dr. Corbin on 09-10-2022 IgM [Mass/Vol] 66 mg/dL 26-217 [facility] Serum or plasma albumin baljit urement (mass/volume)Ordered By: Dr. Corbin on 09-10-2022 Albumin [Mass/Vol] 3.8 g/dL 3.2-5.0 [facility] Serum or plasma albumin/glob ulin mass ratioOrdered By: Dr. Corbin on 09-10-2022 Albumin/Globulin [Mass ratio] 1.4 {ratio} 0.9-2.4 [facility] Serum or plasma beta globuli n measurement by electrophoresis (mass/volume)Ordered By: Dr. Corbin on 09-10-2022 Beta globulin Elph [Mass/Vol] 0.8 g/dL 0.7-1.3 [facility] Serum or plasma calcium baljit urement (mass/volume)Ordered By: Dr. Corbin on 09-10-2022 Calcium [Mass/Vol] 9.2 mg/dL 8.5-10.1 [facility] Serum or plasma creatinine m easurement (mass/volume)Ordered By: Dr. Corbin on 09-10-2022 Creatinine [Mass/Vol] 0.90 mg/dL 0.55-1.02 [facility] Comment on above: The validity of the calculated GFR & GFRAA in patients over 70 years has not been determined. Clinical correlation is essential. Serum or plasma gamma globul in measurement by electrophoresis (mass/volume)Ordered By: Dr. Corbin on 09-10-2022 Gamma globulin Elph [Mass/Vol] 0.8 g/dL 0.4-1.8 [facility] Serum or plasma immunoelectr ophoresis interpretation (nominal result)Ordered By: Dr. Corbin on 09-10-2022 Interpretation IEP [Interp] Comment . [facility] Comment on above: No monoclonality det ected. Serum or plasma urea nitroge n measurement (mass/volume)Ordered By: Dr. Corbin on 09-10-2022 Urea nitrogen [Mass/Vol] 15 mg/dL 7-18 [facility] Thin prep Papanicolaou smear with manual screeningOrdered By: Dr. Corbin on 09-10-2022 Thin prep Papanicolaou smear with manual screening 7 U/L 15-37 [facility] Thin prep Papanicolaou smear with manual screening 7 5-15 [facility] Thin prep Papanicolaou smear with manual screening 1.6 0.7-1.7 [facility] Total protein bloodOrdered B y: Dr. Corbin on 09-10-2022 Protein [Mass/Vol] 6.4 g/dL 6.0-8.5 [facility] Urine albumin/total protein mass ratio by electrophoresisOrdered By: Dr. Corbin on 09-10-2022 Albumin Elph (U) [Mass fraction] 17.6 % . [facility] Urine alpha 1 globulin/total protein ratio by electrophoresis (mass fraction)Ordered By: Dr. Corbin on 09-10-2022 Alpha 1 globulin Elph (U) [Mass fraction] 7.8 % . [facility] Urine monoclonal protein/tot al protein mass ratio by electrophoresisOrdered By: Dr. Corbin on 09-10-2022 Protein.monoclonal Elph (U) [Mass fraction] See comment [facility] Comment on above: Result: Not Observed Urine protein measurement (m ass/volume)Ordered By: Dr. Corbin on 09-10-2022 Protein (U) [Mass/Vol] mg/dL 0.0-11.8 [facility] Protein (U) [Mass/Vol] 6.0 mg/dL Not Estab. [facility] Whole blood hemoglobin A1c/t otal hemoglobin ratio (mass fraction)Ordered By: Dr. Corbin on 09-10-2022 HbA1c (Bld) [Mass fraction] 5.6 % 3.8-5.6 [facility] Comment on above: Normal < 5.7 % Predi abetic 5.7 - 6.4 % Diabetic >or= 6.5 % Please note range changes. Basophil percentageOrdered B y: Dr. Pride on 07-16-2022 Bilirubin [Mass/Vol] 0.30 mg/dL 0.20-1.00 [facility] Comment on above: For patients on eltr ombopag therapy, use of Dimension Parker TBIL is not recommended. Chloride [Moles/Vol] 108 mmol/L 98-107 [facility] Glucose [Mass/Vol] 91 mg/dL 74-106 [facility] Potassium [Moles/Vol] 4.0 mmol/L 3.5-5.1 [facility] Protein [Mass/Vol] 7.2 g/dL 6.4-8.2 [facility] Sodium [Moles/Vol] 141 mmol/L 136-145 [facility] Laboratory - Chemistry and C hemistry - challengeOrdered By: Dr. Pride on 07-16-2022 ALP [Catalytic activity/Vol] 72 U/L 45-117 [facility] ALT [Catalytic activity/Vol] 18 U/L 13-56 [facility] CO2 [Moles/Vol] 29.0 mmol/L 21.0-32.0 [facility] Globulin (S) [Mass/Vol] 3.2 g/dL 2.2-4.2 [facility] Urea nitrogen/Creatinine [Mass ratio] 14.7 mg/mg 10-20 [facility] No Panel InformationOrdered By: Dr. Pride on 07-16-2022 Estimated GFR (MDRD) Amer 84 mL/min >60 [facility] Comment on above: GFR Calc Estimated GFR (MDRD) Non-Af Amer 69 mL/min >60 [facility] Comment on above: Non- GFR Calc Vitamin D 25-Hydroxy 52.3 ng/mL [facility] Comment on above: Vitamin D 25(OH) Sta tus Range Deficiency <20 ng/mL (50nmol/L) Insufficiency 20 - 30 ng/mL (50 - 75 nmol/L) Sufficiency 30 - 100 ng/mL (75 - 250 nmol/L) Toxicity >100 ng/mL (>250 nmol/L) Serum or plasma albumin baljit urement (mass/volume)Ordered By: Dr. Pride on 07-16-2022 Albumin [Mass/Vol] 4.0 g/dL 3.2-5.0 [facility] Serum or plasma albumin/glob ulin mass ratioOrdered By: Dr. Pride on 07-16-2022 Albumin/Globulin [Mass ratio] 1.2 {ratio} 0.9-2.4 [facility] Serum or plasma calcium baljit urement (mass/volume)Ordered By: Dr. Pride on 07-16-2022 Calcium [Mass/Vol] 9.5 mg/dL 8.5-10.1 [facility] Serum or plasma creatinine m easurement (mass/volume)Ordered By: Dr. Pride on 07-16-2022 Creatinine [Mass/Vol] 0.89 mg/dL 0.55-1.02 [facility] Comment on above: The validity of the calculated GFR & GFRAA in patients over 70 years has not been determined. Clinical correlation is essential. Serum or plasma urea nitroge n measurement (mass/volume)Ordered By: Dr. Pride on 07-16-2022 Urea nitrogen [Mass/Vol] 13 mg/dL 7-18 [facility] Thin prep Papanicolaou smear with manual screeningOrdered By: Dr. Pride on 07-16-2022 Thin prep Papanicolaou smear with manual screening 8 U/L 15-37 [facility] Thin prep Papanicolaou smear with manual screening 4 5-15 [facility] Basophil percentageon 2021 Bilirubin [Mass/Vol] 0.40 mg/dL 0.20-1.00 [facility] Work Phone: Comment on above: For patients on eltr ombopag therapy, use of Dimension Parker TBIL is not recommended. Chloride [Moles/Vol] 106 mmol/L 98-107 [facility] Work Phone: Cholesterol [Mass/Vol] 170 mg/dL <200 [facility] Work Phone: Comment on above: <200 mg/dL Desirable 200-240 mg/dL Borderline >240 mg/dL High Risk Glucose [Mass/Vol] 92 mg/dL 74-106 [facility] Work Phone: Potassium [Moles/Vol] 4.0 mmol/L 3.5-5.1 [facility] Work Phone: Protein [Mass/Vol] 7.0 g/dL 6.4-8.2 [facility] Work Phone: Sodium [Moles/Vol] 139 mmol/L 136-145 [facility] Work Phone: Triglyceride [Mass/Vol] 156 mg/dL <199 [facility] Work Phone: Comment on above: The drugs N-Acetylcy steine and Metamizole may falsely depress this assay.Serum Triglycerides Reference Interval Normal <150 mg/dL Borderline high 150 - 199 mg/dL High 200 - 499 mg/dL Very High > or = 500 mg/dL Laboratory - Chemistry and C hemistry - challengeon 03-19-2022 ALP [Catalytic activity/Vol] 63 U/L 45-117 [facility] Work Phone: ALT [Catalytic activity/Vol] 23 U/L 13-56 [facility] Work Phone: CO2 [Moles/Vol] 26.0 mmol/L 21.0-32.0 [facility] Work Phone: Globulin (S) [Mass/Vol] 3.3 g/dL 2.2-4.2 [facility] Work Phone: Urea nitrogen/Creatinine [Mass ratio] 17.1 mg/mg 10-20 [facility] Work Phone: No Panel Informationon 03-19 Estimated GFR (MDRD) Amer 85 mL/min >60 [facility] Work Phone: Comment on above: GFR Calc Estimated GFR (MDRD) Non-Af Amer 71 mL/min >60 [facility] Work Phone: Comment on above: Non- GFR Calc Thyroid Stimulating Hormone (TSH) 1.32 uIU/mL 0.358-3.74 [facility] Work Phone: Vitamin D 25-Hydroxy 41.7 ng/mL [facility] Work Phone: Comment on above: Vitamin D 25(OH) Sta tus Range Deficiency <20 ng/mL (50nmol/L) Insufficiency 20 - 30 ng/mL (50 - 75 nmol/L) Sufficiency 30 - 100 ng/mL (75 - 250 nmol/L) Toxicity >100 ng/mL (>250 nmol/L) Serum or plasma albumin baljit urement (mass/volume)on 03-19-2022 Albumin [Mass/Vol] 3.7 g/dL 3.2-5.0 [facility] Work Phone: Serum or plasma albumin/glob ulin mass ratioon 03-19-2022 Albumin/Globulin [Mass ratio] 1.1 {ratio} 0.9-2.4 [facility] Work Phone: Serum or plasma calcium baljit urement (mass/volume)on 03-19-2022 Calcium [Mass/Vol] 8.8 mg/dL 8.5-10.1 [facility] Work Phone: Serum or plasma cholesterol in HDL measurement (mass/volume)on 03-19-2022 Cholesterol in HDL [Mass/Vol] 67 mg/dL >40 [facility] Work Phone: Comment on above: The drugs N-Acetylcy steine and Metamizole may falsely depress this assay. Reference Range HDL <40 mg/dL Low HDL Cholesterol HDL >or= 60 mg/dL High HDL Cholesterol Serum or plasma cholesterol in VLDL measurement (mass/volume)on 03-19-2022 Cholesterol in VLDL [Mass/Vol] 31 mg/dL 5-40 [facility] Work Phone: Serum or plasma creatinine m easurement (mass/volume)on 03-19-2022 Creatinine [Mass/Vol] 0.88 mg/dL 0.55-1.02 [facility] Work Phone: Comment on above: The validity of the calculated GFR & GFRAA in patients over 70 years has not been determined. Clinical correlation is essential. Serum or plasma low density lipoprotein (LDL) cholesterol measurement (mass/volume)on 03-19-2022 Cholesterol in LDL [Mass/Vol] 72 mg/dL 0-130 [facility] Work Phone: Serum or plasma urea nitroge n measurement (mass/volume)on 03-19-2022 Urea nitrogen [Mass/Vol] 15 mg/dL 7-18 [facility] Work Phone: Thin prep Papanicolaou smear with manual screeningon 03-19-2022 Thin prep Papanicolaou smear with manual screening 15 U/L 15-37 [facility] Work Phone: Thin prep Papanicolaou smear with manual screening 7 5-15 [facility] Work Phone: Vital Signs Date Time Vital Sign Value Performing Clinician Gersoni ogy 03-07-2025 15:04-0400 Body height 175.[address] Jill Zelaya MD Work Phone: [facility] 03-07-2025 15:04-0400 Body mass index (BMI) [Ratio] 29.7 kg/m2 Dr. Jill Zelaya MD Work Phone: [facility] 03-07-2025 15:04-0400 Body temperature 97.2 [degF] Dr. Jill Zelaya MD Work Phone: [facility] 03-07-2025 15:04-0400 Body weight 91.[address] Jill Zelaya MD Work Phone: [facility] 03-07-2025 15:04-0400 Diastolic blood pressure 73 mm[Hg] Dr. Jill Zelaya MD Work Phone: [facility] 03-07-2025 15:04-0400 Heart rate 70 /min Dr. Jill Zelaya MD Work Phone: [facility] 03-07-2025 15:04-0400 Respiratory rate 18 /min Dr. Jill Zelaya MD Work Phone: [facility] 03-07-2025 15:04-0400 SaO2% (BldA) [Mass fraction] 99 % Dr. Jill Zelaya MD Work Phone: [facility] 03-07-2025 15:04-0400 Systolic blood pressure 105 mm[Hg] Dr. Jill Zelaya MD Work Phone: [facility] 01-25-2025 13:05-0400 Body mass index (BMI) [Ratio] 28.2 kg/m2 Dr. Jill Zelaya MD Work Phone: [facility] 01-25-2025 13:05-0400 Body temperature 97.6 [degF] Dr. Jill Zelaya MD Work Phone: [facility] 01-25-2025 13:05-0400 Body weight 86.[address] Jill Zelaya MD Work Phone: [facility] 01-25-2025 13:05-0400 Diastolic blood pressure 66 mm[Hg] Dr. Jill Zelaya MD Work Phone: [facility] 01-25-2025 13:05-0400 Heart rate 98 /min Dr. Jill Zelaya MD Work Phone: [facility] 01-25-2025 13:05-0400 Respiratory rate 16 /min Dr. Jill Zelaya MD Work Phone: [facility] 01-25-2025 13:05-0400 SaO2% (BldA) [Mass fraction] 97 % Dr. Jill Zelaya MD Work Phone: [facility] 01-25-2025 13:05-0400 Systolic blood pressure 114 mm[Hg] Dr. Jill Zelaya MD Work Phone: [facility] 01-19-2025 12:24-0400 Body mass index (BMI) [Ratio] 28.2 kg/m2 Dr. Jill Zelaya MD Work Phone: [facility] 01-19-2025 12:24-0400 Body weight 86.[address] Jill Zelaya MD Work Phone: [facility] 01-19-2025 12:24-0400 Diastolic blood pressure 57 mm[Hg] Dr. Jill Zelaya MD Work Phone: [facility] 01-19-2025 12:24-0400 Systolic blood pressure 92 mm[Hg] Dr. Jill Zelaya MD Work Phone: [facility] 12-07-2024 12:58-0500 Body height 175.[address] Jill Zelaya MD Work Phone: [facility] 12-07-2024 12:58-0500 Body mass index (BMI) [Ratio] 29.5 kg/m2 Dr. Jill Zelaya MD Work Phone: [facility] 12-07-2024 12:58-0500 Body temperature 97.8 [degF] Dr. Jill Zelaya MD Work Phone: [facility] 12-07-2024 12:58-0500 Body weight 90.[address] Jill Zelaya MD Work Phone: [facility] 12-07-2024 12:58-0500 Diastolic blood pressure 80 mm[Hg] Dr. Jill Zelaya MD Work Phone: [facility] 12-07-2024 12:58-0500 Heart rate 99 /min Dr. Jill Zelaya MD Work Phone: [facility] 12-07-2024 12:58-0500 Respiratory rate 17 /min Dr. Jill Zelaya MD Work Phone: [facility] 12-07-2024 12:58-0500 SaO2% (BldA) [Mass fraction] 97 % Dr. Jill Zelaya MD Work Phone: [facility] 12-07-2024 12:58-0500 Systolic blood pressure 104 mm[Hg] Dr. Jill Zelaya MD Work Phone: [facility] 11-14-2024 11:49-0500 Body mass index (BMI) [Ratio] 29.1 kg/m2 Dr. Jill Zelaya MD Work Phone: [facility] 11-14-2024 11:49-0500 Body weight 89.[address] Jill Zelaya MD Work Phone: [facility] 11-14-2024 11:49-0500 Diastolic blood pressure 73 mm[Hg] Dr. Jill Zelaya MD Work Phone: [facility] 11-14-2024 11:49-0500 Heart rate 93 /min Dr. Jill Zelaya MD Work Phone: [facility] 11-14-2024 11:49-0500 Systolic blood pressure 115 mm[Hg] Dr. Jill Zelaya MD Work Phone: [facility] 10-17-2024 11:45-0500 Body mass index (BMI) [Ratio] 30.9 kg/m2 Dr. Jill Zelaya MD Work Phone: [facility] 10-17-2024 11:45-0500 Body weight 94.[address] Jill Zelaya MD Work Phone: [facility] 10-17-2024 11:45-0500 Diastolic blood pressure 71 mm[Hg] Dr. Jill Zelaya MD Work Phone: [facility] 10-17-2024 11:45-0500 Systolic blood pressure 111 mm[Hg] Dr. Jill Zelaya MD Work Phone: [facility] 03-30-2024 16:47-0400 Body mass index (BMI) [Ratio] 27.41 kg/m2 Rosina Estrada MD Work Phone: [facility] 03-30-2024 16:47-0400 Body weight 86.64 kg Rosina Estrada MD Work Phone: [facility] 03-30-2024 16:47-0400 Diastolic blood pressure 70 mm[Hg] Rosina Estrada MD Work Phone: [facility] 03-30-2024 16:47-0400 Heart rate 72 /min Rosina Estrada MD Work Phone: [facility] 03-30-2024 16:47-0400 Systolic blood pressure 113 mm[Hg] Rosina Estrada MD Work Phone: [facility] 12-09-2023 15:03-0500 Body height 177.8 cm Rosina Estrada MD Work Phone: [facility] 12-09-2023 15:03-0500 Body weight 84.37 kg Rosina Estrada MD Work Phone: [facility] 12-09-2023 15:03-0500 Diastolic blood pressure 65 mm[Hg] Rosina Estrada MD Work Phone: [facility] 12-09-2023 15:03-0500 Heart rate 83 /min Rosina Estrada MD Work Phone: [facility] 12-09-2023 15:03-0500 SaO2% (BldA) [Mass fraction] 100 % Rosina Estrada MD Work Phone: [facility] 12-09-2023 15:03-0500 Systolic blood pressure 123 mm[Hg] Rosina Estrada MD Work Phone: [facility] 11-05-2023 14:26-0500 Body height 175.[address] Jill Zelaya Work Phone: [facility] 11-05-2023 14:26-0500 Body mass index (BMI) [Ratio] 28.2 kg/m2 Dr. Jill Zelaya Work Phone: [facility] 11-05-2023 14:26-0500 Body temperature 97.7 [degF] Dr. Jill Zelaya Work Phone: [facility] 11-05-2023 14:26-0500 Body weight 86.[address] Jill Zelaya Work Phone: [facility] 11-05-2023 14:26-0500 Diastolic blood pressure 72 mm[Hg] Dr. Jill Zelaya Work Phone: [facility] 11-05-2023 14:26-0500 Heart rate 71 /min Dr. Jill Zelaya Work Phone: [facility] 11-05-2023 14:26-0500 Respiratory rate 16 /min Dr. Jill Zelaya Work Phone: [facility] 11-05-2023 14:26-0500 SaO2% (BldA) [Mass fraction] 99 % Dr. Jill Zelaya Work Phone: [facility] 11-05-2023 14:26-0500 Systolic blood pressure 118 mm[Hg] Dr. Jill Zelaya Work Phone: [facility] 10-14-2023 13:03-0500 Body mass index (BMI) [Ratio] 27.4 kg/m2 Dr. Jill Zelaya Work Phone: [facility] 10-14-2023 13:03-0500 Body weight 85.[address] Jill Zelaya Work Phone: [facility] 10-07-2023 13:28-0500 Body mass index (BMI) [Ratio] 28 kg/m2 Dr. Jill Zelaya Work Phone: [facility] 10-07-2023 13:28-0500 Body temperature 98.3 [degF] Dr. Jill Zelaya Work Phone: [facility] 10-07-2023 13:28-0500 Body weight 86.[address] Jill Zelaya Work Phone: [facility] 10-07-2023 13:28-0500 Diastolic blood pressure 72 mm[Hg] Dr. Jill Zelaya Work Phone: [facility] 10-07-2023 13:28-0500 Heart rate 82 /min Dr. Jill Zelaya Work Phone: [facility] 10-07-2023 13:28-0500 Respiratory rate 16 /min Dr. Jill Zelaya Work Phone: [facility] 10-07-2023 13:28-0500 SaO2% (BldA) [Mass fraction] 98 % Dr. Jill Zelaya Work Phone: [facility] 10-07-2023 13:28-0500 Systolic blood pressure 114 mm[Hg] Dr. Jill Zelaya Work Phone: [facility] 03-11-2023 09:49-0400 Body height 176.[address] Jill Zelaya Work Phone: [facility] 03-11-2023 09:49-0400 Body mass index (BMI) [Ratio] 26 kg/m2 Dr. Jill Zelaya Work Phone: [facility] 03-11-2023 09:49-0400 Body weight 81.[address] Jill Zelaya Work Phone: [facility] 03-05-2023 09:09-0400 Body weight 80.74 kg Robby Kilgore MD Work Phone: [facility] 03-05-2023 09:09-0400 Diastolic blood pressure 76 mm[Hg] Robby Kilgore MD Work Phone: [facility] 03-05-2023 09:09-0400 Heart rate 78 /min Robby Kilgore MD Work Phone: [facility] 03-05-2023 09:09-0400 Systolic blood pressure 110 mm[Hg] Robby Kilgore MD Work Phone: [facility] 03-04-2023 07:31-0400 Body mass index (BMI) [Ratio] 26.3 kg/m2 Dr. Jill Zelaya Work Phone: [facility] 03-04-2023 07:31-0400 Body temperature 98.4 [degF] Dr. Jill Zelaya Work Phone: [facility] 03-04-2023 07:31-0400 Body weight 82.[address] Jill Zelaya Work Phone: [facility] 03-04-2023 07:31-0400 Diastolic blood pressure 82 mm[Hg] Dr. Jill Zelaya Work Phone: [facility] 03-04-2023 07:31-0400 Heart rate 79 /min Dr. Jill Zelaya Work Phone: [facility] 03-04-2023 07:31-0400 Respiratory rate 14 /min Dr. Jill Zelaya Work Phone: [facility] 03-04-2023 07:31-0400 SaO2% (BldA) [Mass fraction] 99 % Dr. Jill Zelaya Work Phone: [facility] 03-04-2023 07:31-0400 Systolic blood pressure 130 mm[Hg] Dr. Jill Zelaya Work Phone: [facility] 12-03-2022 08:07-0500 Body mass index (BMI) [Ratio] 26.2 kg/m2 Dr. Jill Zelaya Work Phone: [facility] 12-03-2022 08:07-0500 Body temperature 96.2 [degF] Dr. Jill Zelaya Work Phone: [facility] 12-03-2022 08:07-0500 Body weight 81.[address] Jill Zelaya Work Phone: [facility] 12-03-2022 08:07-0500 Diastolic blood pressure 74 mm[Hg] Dr. Jill Zelaya Work Phone: [facility] 12-03-2022 08:07-0500 Heart rate 82 /min Dr. Jill Zelaya Work Phone: [facility] 12-03-2022 08:07-0500 Respiratory rate 18 /min Dr. Jill Zelaya Work Phone: [facility] 12-03-2022 08:07-0500 SaO2% (BldA) [Mass fraction] 97 % Dr. Jill Zelaya Work Phone: [facility] 12-03-2022 08:07-0500 Systolic blood pressure 108 mm[Hg] Dr. Jill Zelaya Work Phone: [facility] 09-24-2022 10:40-0500 Body temperature 96.7 [degF] Dr. Robby Pride Work Phone: [facility] 09-24-2022 10:40-0500 Body weight 81.[address] Robby Pride Work Phone: [facility] 09-24-2022 10:40-0500 Diastolic blood pressure 60 mm[Hg] Dr. Robby Pride Work Phone: [facility] 09-24-2022 10:40-0500 Heart rate 78 /min Dr. Robby Pride Work Phone: [facility] 09-24-2022 10:40-0500 Respiratory rate 16 /min Dr. Robby Pride Work Phone: [facility] 09-24-2022 10:40-0500 SaO2% (BldA) [Mass fraction] 97 % Dr. Robby Pride Work Phone: [facility] 09-24-2022 10:40-0500 Systolic blood pressure 106 mm[Hg] Dr. Robby Pride Work Phone: [facility] 06-17-2022 15:00-0400 Body height 176.[address] Robby Pride Work Phone: [facility] Work Phone: 06-17-2022 15:00-0400 Body mass index (BMI) [Ratio] 26.4 kg/m2 Dr. Robby Pride Work Phone: [facility] Work Phone: 06-17-2022 15:00-0400 Body weight 82.[address] Robby Pride Work Phone: [facility] Work Phone: 03-05-2022 10:50-0400 Body height 176.[address] Robby Pride Work Phone: [facility] Work Phone: 03-05-2022 10:50-0400 Body mass index (BMI) [Ratio] 28 kg/m2 Dr. Robby Pride Work Phone: [facility] Work Phone: 03-05-2022 10:50-0400 Body weight 87.[address] Robby Pride Work Phone: [facility] Work Phone: Encounters Encounter Date Encounter Type Care Provider Facility Start: [facility] Start: 03-14-2025 Encounter for other preprocedural examination Fernando Mayela [facility] Start: 03-07-2025 End: 03-07-[address] Fernando Ontiveros MD -[facility] Work Phone: Start: 03-07-2025 End: 03-07-[address] Jill Zelaya MD Work Phone: [facility] Work Phone: Start: 03-06-2025 End: 03-06-[address] Jill Zelaya MD Work Phone: [facility] Work Phone: Start: 03-06-2025 End: 03-06-[address] Fatemeh Urbina [facility] -[facility] Work Phone: Start: 03-06-2025 End: 03-06-2025 ambulatory Fatemeh Urbina Facility:[facility] Start: 01-25-2025 End: 01-25-[address] Jill Zelaya MD -[facility] Work Phone: Start: 01-25-2025 End: 01-25-2025 ambulatory Jill [place] Facility:[facility] Start: 01-19-2025 End: 01-19-[address] Yuli Ames MD -[facility] Work Phone: Start: 01-19-2025 End: 01-19-2025 ambulatory Jill Nathalie Facility:[facility] Start: 12-27-2024 End: 12-27-[address] Jill Zelaya MD Work Phone: [facility] Work Phone: Start: 12-27-2024 End: 12-27-[address] David David MD -Lab, [facility] Start: 12-27-2024 End: 12-27-2024 ambulatory Jill [place] Facility:[facility] Start: 12-07-2024 End: 12-07-[address] David David MD -[facility] Work Phone: Start: 12-07-2024 End: 12-07-2024 ambulatory Jill Nathalie Facility:[facility] Start: 11-14-2024 End: 11-14-[address] Yuli Ames MD -[facility] Work Phone: Start: 11-14-2024 End: 11-14-2024 ambulatory Jill [place] Facility:[facility] Start: 10-17-2024 End: 10-17-[address] Yuli Ames MD -[facility] Work Phone: Start: 10-17-2024 End: 10-17-[address] Yuli Ames MD [facility] Start: 10-17-2024 End: 10-17-2024 ambulatory Jill [place] Facility:[facility] Start: 08-17-2024 End: 08-17-2024 ambulatory Jill [place] Facility:[facility] Start: 08-15-2024 End: 08-15-2024 ambulatory Jill Zelaya Facility:[facility] Start: 08-03-2024 End: 08-03-2024 ambulatory Jill Nathalie Facility:[facility] Start: 07-24-2024 End: 07-24-2024 ambulatory [facility] Facility:[facility] Start: 07-13-2024 End: 07-13-2024 ambulatory Zoraida Ferullo Facility:[facility] Start: 06-01-2024 End: 06-01-2024 ambulatory [facility] Facility:[facility] Start: 05-26-2024 End: 05-27-2024 ambulatory Zoraida Ferullo Facility:[facility] Start: 05-26-2024 End: 05-26-2024 ambulatory Zoraida Ferullo Facility:[facility] Start: 04-27-2024 End: 04-27-2024 ambulatory Zoraidawoody Amadorullo Facility:[facility] Start: 04-13-2024 End: 04-13-2024 ambulatory Jill Zelaya Facility:[facility] Start: 03-30-2024 End: 03-30-2024 Patient encounter procedure Rosina Estrada MD Work Phone: [facility] Comment on above: Erythromelalgia (HCC ) (Primary Dx); Raynaud's disease without gangrene Start: 03-30-2024 End: 03-30-2024 ambulatory ROSINA ESTRADA Facility:[facility] Start: 03-16-2024 ambulatory Jill Zelaya Facility :[facility] Start: 12-09-2023 End: 12-09-2023 ambulatory ROSINA ESTRADA Facility:[facility] Start: 12-09-2023 End: 12-09-2023 Patient encounter procedure Rosina Estrada MD Work Phone: [facility] Comment on above: Erythromelalgia (HCC ) (Primary Dx); Neuropathy; Small fiber neuropathy; Acrocyanosis (HCC) Start: 12-08-2023 End: 12-08-[address] Jill Zelaya Work Phone: [facility] Work Phone: Start: 12-08-2023 End: 12-08-[address] Jill Zelaya Work Phone: [facility] Start: 11-11-2023 End: 11-11-[address] Jill Zelaya Work Phone: [facility] Work Phone: Start: 11-11-2023 End: 11-11-[address] Jill Zelaya Work Phone: [facility] Work Phone: Start: 11-11-[address] Denis Zelaya Work Phone: [facility] Work Phone: Start: 11-08-[address] Denis Zelaya Work Phone: [facility] Work Phone: Start: 11-05-2023 End: 11-05-[address] Jill Zelaya Work Phone: [facility] Work Phone: Start: 11-05-2023 End: 11-05-[address] Jill Zelaya Work Phone: [facility] Work Phone: Start: 10-27-2023 End: 10-27-[address] Jill Zelaya Work Phone: [facility] Work Phone: Start: 10-14-2023 End: 10-14-[address] Jill Zelaya Work Phone: [facility] Work Phone: Start: 10-07-2023 End: 10-07-[address] Jill Zelaya Work Phone: [facility] Work Phone: Start: 03-23-2023 End: 03-23-[address] Jill Zelaya Work Phone: [facility] Work Phone: Start: 03-23-2023 End: 03-23-[address] Jill Zelaya Work Phone: [facility]patient [facility] Start: 03-11-2023 End: 03-11-[address] 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 Jill Zelaya Work Phone: [facility] Start: 12-03-2022 End: 12-03-[address] Jill Zelaya Work Phone: [facility] Start: 10-23-2022 End: 10-23-[address] Robby Pride Work Phone: [facility] Work Phone: Start: 10-23-2022 End: 10-23-[address] Robby Pride Work Phone: [facility] Services/Neurology Start: 09-24-2022 End: 09-24-[address] Robby Pride Work Phone: [facility] Work Phone: Start: 09-24-2022 End: 09-24-[address] Robby Pride Work Phone: [facility] [place] Start: 09-24-2022 End: 09-24-[address] Robby Pride Work Phone: [facility] Start: 09-10-2022 End: 09-10-[address] Robby Pride Work Phone: [facility] Start: 07-16-2022 End: 07-16-[address] Robby Pride Work Phone: [facility] Work Phone: Start: 07-16-2022 End: 07-16-[address] Rob[facility] Pride Work Phone: [facility] Start: 07-02-2022 End: 07-02-[address] Robby Pride Work Phone: [facility] Start: 06-30-2022 End: 06-30-[address] Robby Pride Work Phone: [facility] Work Phone: Start: 06-30-2022 End: 06-30-[address] Robby Pride Work Phone: [facility] Start: 06-17-2022 End: 06-17-[address] Robby Pride Work Phone: [facility] Start: 06-04-2022 End: 06-04-[address] Robby Pride Work Phone: [facility] Work Phone: Start: 06-04-2022 End: 06-04-[address] Robby Pride Work Phone: [facility]patient [facility] Start: 03-19-2022 End: 03-19-[address] Robby Pride Work Phone: [facility] Start: 03-05-2022 End: 03-05-[address] Robby Pride Work Phone: [facility] Procedures Date Procedure Procedure Detail Performing Clinician Start: 03-06-2025 US scan of gallbladder Dr. Jill Zelaya MD Work Phone: Start: 11-05-2023 SARS-CoV-2, Influenz a & RSV (PCR) Dr. Jill Zelaya Work Phone: Start: 10-27-2023 Plain x-ray of pelvi s and lower extremity Dr. Jill Zelaya Work Phone: Start: 10-27-2023 X-ray of lumbar spin e, two or three views Dr. Jill Zelaya Work Phone: Start: 03-23-2023 Bilateral mammography Wesley Zelaya Work Phone: Start: 03-23-[address] Jill Zelaya Work Phone: Start: 06-30-2022 MRI of lumbar spine Dr. Robby Pride Work Phone: Start: 06-17-[address] Edie Pride Work Phone: Start: 06-17-2022 X-ray of lumbar spin e, two or three views Dr[address] Robby Pride Work Phone: Start: 06-04-2022 Screening mammography Wesley Pride Work Phone: Start: 11-12-2014 Mammography Robby stark MD Work Phone: Start: 06-28-2013 Lipid 1996 panel - S joana or Plasma Rosina Estrada MD Work Phone: Start: 09-08-2006 Colonoscopy Robby stark MD Work Phone: Plan of Treatment Date Care Activity Detail Author Start: 07-19-2033 Urine microalbumin profile DTaP,Tdap,Td Vaccine (4 - Td or Tdap) [facility] Start: 06-04-2024 Influenza vaccination Influenza Vaccine (#1) [facility] Start: 12-08-2023 Procedure [facility] Start: 2023 RSV Vaccine (1 - 1-dose 60+ series) RSV Vaccine (1 - 1-dose 60+ series) [facility] Start: 10-07-2023 Patient referral [facility] Work Phone: Start: 10-04-2023 Behavioral Health Screening Behavioral Health Screening [facility] Start: 10-04-2023 Depression Assessment Depression Assessment [facility] Start: 06-04-2023 Covid-19 Vaccine (2022- season) Covid-19 Vaccine ( season) [facility] Start: 03-05-2023 End: 05-05-2023 CBC panel - Blood by Automated count CBC Lab Routine Erythromelalgia (HCC) Expected: 03/05/2023, Expires: 05/05/2023 [facility] Work Phone: Comment on above: Expected: 03/05/2023, Expires: 3 Start: 03-05-2023 End: 05-05-2023 JAK2 gene targeted mutation analysis in Blood or Tissue by Molecular genetics method [id number] MUTATION BLOOD Lab Routine Erythromelalgia (HCC) Expected: 03/05/2023, Expires: 05/05/2023 [facility] Work Phone: Comment on above: Expected: 03/05/2023, Expires: 3 Start: 10-04-2022 DEPRESSION ASSESSMENT DEPRESSION ASSESSMENT [facility] Start: 01-23-2021 COVID-19 VACCINE (3 - Booster for Moderna series) COVID-19 VACCINE (3 - Booster for Moderna series) [facility] Start: 03-05-2019 Urine microalbumin profile DTAP,TDAP,TD (3 - Td or Tdap) [facility] Start: 06-28-2018 Lipid panel Lipid Screening [facility] Start: 06-28-2018 LIPID SCREEN LIPID SCREEN [facility] Start: 10-30-2017 DIABETES SCREEN DIABETES SCREEN [facility] Start: 10-30-2017 Diabetes Screening Diabetes Screening [facility] Start: 09-08-2016 Colonoscopy COLONOSCOPY [facility] Start: 09-08-2016 COLORECTAL CANCER SCREENING COLORECTAL CANCER SCREENING [facility] Start: 09-08-2016 Screening for malignant neoplasm of colon [facility] Start: 11-12-2015 Mammography MAMMOGRAM [facility] Start: 11-12-2015 Screening for malignant neoplasm of breast Mammogram Screening [facility] Start: 2013 SHINGRIX VACCINE (1 of 2) SHINGRIX VACCINE (1 of 2) [facility] Start: 2008 COLOGUARD (FIT-DNA) COLOGUARD (FIT-DNA) [facility] Start: [address] COLONOGRAPHY [facility] Start: 2008 FECAL OCCULT BLOOD FECAL OCCULT BLOOD [facility] Start: 2008 Screening for malignant neoplasm of colon [facility] Start: 2008 SIGMOIDOSCOPY SIGMOIDOSCOPY [facility] Start: 1981 HEPATITIS C SCREENING HEPATITIS C SCREENING [facility] Start: 1981 Hepatitis C screening Hepatitis C Screening [facility] Start: 1981 HIV SCREENING HIV SCREENING [facility] Start: 1981 HIV screening HIV Screening [facility] CBC W Auto Different ial panel - Blood [facility] Electrocardiographic procedure [facility] Work Phone: Lipid 1996 panel - S joana or Plasma [facility] Patient referral [facility] Work Phone: End: 03-05-2024 PVR ANK/BECKER/TOE PACO VAS LAB PVR ANK/BECKER/TOE PACO VAS LAB Vascular Lab Routine Erythromelalgia (HCC) 1 Occurrences starting 03/05/2023 until 03/05/2024 [facility] Work Phone: Comment on above: 1 Occurrences starting 03/05/2023 until 03/05/2024 Thyroid stimulating hormone measurement [facility] End: 12-08-2024 US Lower extremity artery - bilateral PVR ANK/BECKER/TOE PACO VAS LAB Vascular Lab Routine Erythromelalgia (HCC) 1 Occurrences starting 12/09/2023 until 12/08/2024 [facility] Work Phone: Comment on above: 1 Occurrences starting 12/09/2023 until 12/08/2024 [facility] Immunizations Immunization Date Immunization Notes Care Provider Latia day 01-25-[address] Jill Zelaya MD Work Phone: [facility] 08-03-2024 influenza, injectabl e, madin luis canine kidney, preservative free Dr. Jill Zelaya MD Work Phone: [facility] 08-03-2024 Influenza, injectabl e, Madin [place] Canine Kidney, preservative free, quadrivalent Dr. Jill Zelyaa MD Work Phone: [facility] 08-03-[address] Jill Zelaya MD Work Phone: [facility] 01-20-2024 pneumococcal polysaccharide vaccine, [address] Jill Zelaya MD Work Phone: [facility] 07-19-2023 tetanus toxoid, redu jesus diphtheria toxoid, and acellular pertussis vaccine, adsorbed Dr. Jill Zelaya Work Phone: [facility] 07-02-2023 influenza, injectabl e, quadrivalent, preservative free Dr. Jill Zelaya Work Phone: [facility] 07-02-2023 influenza virus vaccine, unspecified formulation Rosina Estrada MD Work Phone: [facility] 09-24-2022 influenza, injectabl e, quadrivalent, preservative free Dr. Jill Zelaya Work Phone: [facility] 09-24-2022 influenza, seasonal, injectable Dr. Robby Pride Work Phone: [facility] 11-28-2020 Covid (Moderna) Dr. Robby alejandre Work Phone: [facility] 10-31-2020 Covid (Moderna) Dr. Robby alejandre Work Phone: [facility] 07-19-2015 influenza virus vaccine, unspecified formulation Robby Kilgore MD Work Phone: [facility] 07-10-2014 influenza, injectabl e, quadrivalent, preservative free Dr. Jill Zelaya Work Phone: [facility] 07-10-2014 influenza, seasonal, injectable Dr. Robby Pride Work Phone: [facility] 07-24-2013 influenza virus vaccine, unspecified formulation Robby Kilgore MD Work Phone: [facility] Work Phone: 07-04-2012 influenza virus vaccine, unspecified formulation Robby Kilgore MD Work Phone: [facility] 07-25-2009 novel [id number], preservative-free, injectable Dr. Robby Pride Work Phone: [facility] 03-05-2009 tetanus toxoid, redu jesus diphtheria toxoid, and acellular pertussis vaccine, adsorbed Robby Kilgore MD Work Phone: [facility] 08-18-2006 influenza virus vaccine, unspecified formulation Robby Kilgore MD Work Phone: [facility] Work Phone: 11-09-2005 measles, mumps and rubella virus vaccine Robby Kilgore MD Work Phone: [facility] 10-08-2005 measles, mumps and rubella virus vaccine Robby Kilgore MD Work Phone: [facility] 05-14-2003 hepatitis B vaccine, adult dosage Robby Kilgore MD Work Phone: [facility] Work Phone: 04-12-2003 diphtheria and tetan us toxoids, adsorbed for pediatric use Robby Kilgore MD Work Phone: [facility] Work Phone: 04-12-2003 hepatitis B vaccine, adult dosage Rboby Kilgore MD Work Phone: [facility] Work Phone: Payers Date Payer Category Payer Self-pay [id number] 2023 Private Health Insurance [employer] [facility] [id number] 2023-Present [phone] [address] [place] [address] PPO [id number] 2023 Unknown [id number] 2022 Unknown MMO MMO [employer] [id number] 2022-Present [phone] [address] [place] [address] Indemnity [id number] Unknown [id number] Unknown [id number] Unknown [facility] PACKAGE PLAN [id number] Unknown [id number]. 462 Unknown [id number] [id number]. 462 Unknown [id number] 2.16.840.1.075353.3.579.2. 462 Unknown [id number] 2.16.840.1.813856.3.579.2. 462 Unknown [id number] 2.16.840.1.052565.3.579.2. 462 Unknown [id number] 2.16.840.1.779075.3.579.2. 462 Unknown [id number] 2.16840.1.323377.3.579.2. 462 Unknown [id number] 2.16.840.1.443850.3.579.2. 462 Unknown [id number] 2.840.1.017707.3.579.2. 462 Unknown [id number] 2.840.1.761561.3.579.2. 462 Unknown [id number] 2.840.1.127273.3.579.2. 462 Unknown [id number] 2.840.1.763324.3.579.2. 462 Unknown [id number] 2.840.1.397500.3.579.2. 462 Unknown [id number] 2.840.1.085242.3.579.2. 462 Unknown [id number] 2.840.1.611967.3.579.2. 462 Unknown [id number] 2.840.1.486721.3.579.2. 462 Unknown [id number] 2.840.1.811039.3.579.2. 462 Unknown [id number] 2.840.1.729520.3.579.2. 462 Unknown [id number] 2.840.1.869962.3.579.2. 462 Unknown [id number] 2.840.1.886397.3.579.2. 462 Unknown [id number] 2.840.1.965191.3.579.2. 462 Unknown [id number] 2.840.1.311312.3.579.2. 462 Social History Date Type Detail Facility Start: 03-05-2022 End: 01-19-2024 Tobacco smoking status PRIS Unknown if ever smoked [facility] Start: 1965 Sex Assigned At Female [facility] Start: 09-14-2011 End: 03-09-2025 Tobacco smoking status NHIS Never smoked tobacco [facility] Start: 09-14-2011 Tobacco use and exposure Smokeless tobacco non-user [facility] Start: 05-20-2022 End: 03-30-2024 Alcohol intake Current drinker of alcohol (finding) [facility] Start: 05-17-2012 Alcohol Comment occasionally [facility] Start: 03-05-2023 End: 12-09-2023 History of Social function [facility] Start: 03-05-2023 End: 12-09-2023 Tobacco use panel [facility] National Score (1-10 0), lower number is lower risk 66 [facility] Start: 02-13-2023 Gender identity Identifies as female gender (finding) [facility] Start: 02-13-2023 Sexual orientation Heterosexual (fin ding) [facility] Start: 12-30-2024 Sex Female (finding) [facility] Goals Date Patient Goal Desired Activity /State Personal health goal Clinical Notes 05-31-2011 to 03-06-2025 Note Date & Type Note Facility 03-06-2025 Radiology Diagnostic study note [facility] Imaging Services [address] [place], [place] [address] Gallbladder MR#: [id number] Acct: [id number] Name: MORENO VANESSA Rep #: [id number] : [id number] F 59 From: Donna Desai MD PCP: Dr. Jill Zelaya MD Status: REG CLI Study:Gallbladder Date of Exam: 03/06/25 Exam# [id number] Ordering Dr: Fatemeh Urbina MD PROCEDURE: GALLBLADDER 03/06/2025 REASON FOR EXAM: RUQ PAIN COMPARISON: No relevant prior. FINDINGS: Liver: Normal in size. 15.4 cm in length sagittally. Normal parenchymal echogenicity and echotexture. No ductal dilatation. Hepatopetal blood flow. Gallbladder: A solitary gallstone measuring 1.0 x 1.2 x 0.8 cm lodged in the neck. No sludge. No wall thickening. No pericholecystic edema. Common bile duct: 0.5 cm. . Pancreas: Normal. Right kidney: Size measures 10.5 x 5.5 x 4.5 cm. Cortex measures 1.2 cm. US/Gallbladder IMPRESSION: Cholelithiasis. A solitary gallstone is lodged in the gallbladder neck. Reading Location: [place] [address] CC: Dr. Jill Zelaya MD; Dr. Fatemeh Urbina MD ~ Technical Architect: Signed [facility] 11-14-2024 Evaluation note Diagnosis Onset Date Resolution Body dysmorphic disorder acute November 14, 2024 11:48am Depression acute November 14, 2024 11:48am Overweight acute November 14, 2024 11:48am Overweight (BMI 25.0-29.9) resolved November 14 11:48am Depression acute December 07 12:57pm Edema of lower extremity acute December 07, 2024 12:57pm Polyneuropathy acute December 07, 2024 12:57pm Body dysmorphic disorder acute January 19, 2025 12:24pm Depression acute January 19 12:24pm Overweight acute January 19 12:24pm Overweight (BMI 25.0-29.9) resolved January 19, 2025 12:24pm Mild intermittent asthma in adult without complication acute January 25, 2025 12:58pm Mild depression resolved January 12:58pm Immunization due noneactive January 252024 12:58pm Overweight (BMI 25.0-29.9) noneactive January 25, 2025 12:58pm Degenerative disc disease, lumbar noneactive January 25, 2025 12:58pm Polyneuropathy noneactive January 12:58pm Bilateral hip pain noneactive January 25, 2025 12:58pm [facility] Work Phone: 1(597) 761-112102-11-2025 Evaluation note* Diagnosis Onset Date Resolution Status Admit Date Body dysmorphic disorder acute November 14, 2024 11:48am Depression acute November 14, 2024 11:48am Overweight acute November 14, 2024 11:48am Overweight (BMI 25.0-29.9) resolved November 14, 2024 11:48am Depression acute December 07 12:57pm Edema of lower extremity acute December 07, 2024 12:57pm Polyneuropathy acute December 07, 2024 12:57pm Body dysmorphic disorder acute January 19, 2025 12:24pm Depression acute January 19 12:24pm Overweight acute January 19 12:24pm Overweight (BMI 25.0-29.9) resolved January 19, 2025 12:24pm Mild intermittent asthma in adult without complication acute January 25, 2025 12:58pm Mild depression resolved January 12:58pm Immunization due noneactive January 252024 12:58pm Overweight (BMI 25.0-29.9) noneactiv e January 25, 2025 12:58pm Degenerative disc disease, lumbar noneactive January 25, 2025 12:58pm Polyneuropathy noneactive January 12:58pm Bilateral hip pain noneactive January 25, 2025 12:58pm RUQ abdominal pain acute March 072024 3:07pm [facility] Work Phone: 1(390) 768-110701-14-2025 Evaluation note* Diagnosis Onset Date Resolution Status Admit Date Obesity (BMI 30-39.9) acute Oct 11:47am Overweight acute October 17, 2024 11:47am Encounter for routine gynecological examination noneactive 2024 11:47am Body dysmorphic disorder acute November 14, 2024 11:48am Depression acute November 14, 2024 11:48am Overweight acute November 14, 2024 11:48am Overweight (BMI 25.0-29.9) resolved November 14, 2024 11:48am Depression acute December 07 12:57pm Edema of lower extremity acute December 07, 2024 12:57pm Polyneuropathy acute December 07, 2024 12:57pm [facility] Work Phone: 1(956) 221-772410-21-2024 [facility] Medical Records Department [address] [place] [id number] History Physical Exam 07/24/24811 MR#: [id number] Acct: [id number] Name: MORENO VANESSA Rep #: [id number] : 1965 58 From: Fatemeh Urbina MD PCP: Dr. Jill Zelaya MD Status:REG [facility] [place] Location: [place] [address]1 HPI - General General Date of Service: 07/24/24 HPI Narrative MORENO VANESSA, is a 58 F who presents for colonoscopy due to diarrhea. Patient was treated with budesonide and did have good success and resolution of the diarrhea. Again patient last colonoscopy was in 2018 [place] negative per patient. Plan to do random biopsies as well. Otherwise patient denies any changes. office visit 06/01/24 HPI HPI: 58-year-old female presents due to diarrhea for about the last 3.5 weeks after taking milk of magnesia. Patient has had stool studies which showed positive leuk esterase, pathogens negative and patient went on a brat diet and also stopped her meloxicam about 1.5 weeks ago with no success. Patient has a history of collagenous colitis about 10 years ago. Patient last colonoscopy was in [place] 2018 negative per patient. Patient was recently started on budesonide states she has occasional cramping but states it is improved with the budesonide and also currently she has no diarrhea. Patient has 10-day course of the budesonide. Patient states she has occasional GERD. Does take Gas-X when needed which helps. Patient states prior to this diarrhea she has had chronic constipation all of her life which Benefiber has helped however there are certain foods that cause a lot of bloating she is unable to tolerate this also includes MiraLAX, oatmeal, Lao yogurt, cottage cheese, eggs. Patient have some recent left lower quadrant pain that has resolved. [facility] Medical History Wears glasses History of steroid therapy Back pain Non-smoker Colitis Leg cramps History of pain when walking History of edema Acute diarrhea Neuropathy of right foot Peripheral neuropathy Erythromelalgia Scoliosis Asthma Degenerative disc disease Depression Home Medications ???Medication ???Instructions ???Recorded ???Last Taken ???Type multivitamin 1 tab PO DAILY 06/17/22 Unknown History ascorbate calcium (vitamin C) 500 500 mg PO DAILY 09/24/22 Unknown History mg tablet calcium carbonate (Calcium 600) 600 mg PO DAILY 09/24/22 Unknown History cholecalciferol (vitamin D3) 125 125 mcg PO DAILY 09/24/22 Unknown History mcg (5,000 unit) tablet flaxseed oil 1,000 mg capsule 1,000 mg PO DAILY 09/24/22 Unknown History budesonide-formoterol HFA 160 2 puff inhalation .Q4-6 PRN 11/05/23 Unknown Rx mcg-4.5 mcg/actuation aerosol shortness of breath or wheezing inhaler (Symbicort) #10.2 grams estradiol 1 mg tablet (Estrace) 1 mg PO DAILY #90 tabs 01/13/24 Unknown Rx duloxetine 60 mg capsule,delayed 60 mg PO QHS #30 caps 04/18/24 Unknown Rx release bupropion HCl 150 mg 24 hr tablet, 150 mg PO QAM #90 tabs 05/09/24 Unknown Rx extended release fluoxetine 10 mg capsule (Prozac) 10 mg PO DAILY #30 caps 06/13/24 Unknown Rx baclofen 10 mg tablet 10 mg PO QDAY PRN muscle spasm 07/20/24 Unknown History topiramate 25 mg tablet (Topamax) 25 mg PO BID PRN WEIGHT LOSS 07/20/24 Unknown History Allergy/AdvReac Type Severity Reaction Status Date / Time Sulfa (Sulfonamide Allergy Mild rash Verified 07/24/24 08:02 Antibiotics) Family History Other Adopted Surgical History (Updated 07/20/24 @ 11:00 by Kim Saunders) Hx of colonoscopy History of surgical procedure H/O tubal ligation S/P laparoscopic assisted vaginal hysterectomy (LAVH) delivery delivered Social History adopted: Yes household members: spouse current occupational status: employed current occupation: [employer] Smoking Status: Never smoker Electronic Cigarette Use: not used alcohol intake: current alcohol intake frequency: holidays/special occasions only details: social substance use type: does not use caffeine: Yes what type of physical activity do you participate in: none seatbelt use: always do you feel safe at home: Yes additional social history: [place]- Past Medical/Surgical History Planned Operation Planned Operative Procedure(s): CSCOPE Previous Hospitalizations/Surgeries HX Hospitalizations: No Any Problems With Anesthesia: No You/Your Family Experience Fever (Hyperthermia) With Anes: No Cholinesterase deficiency: No Cardiovascular Hx Chest Pain within Last 2 months: No Hx of Irregular Heartbeat and/or Afib: No Hx Heart Attack: No Hx Congestive Heart Failure: No Hx Hypertension: No Hx Internal Defibrillator: No Hx Pac (more content not included)...[facility]06-27-2024 Instructions* Patient Instructions* Rosina Estrada MD - 03/30/2024 5:52 PM EDT __Supplement: diosmin - hesperidin __try Pepcid -- H2 histamine kalli __neurology consult for small fiber neuropathy documented [facility] NoteHNO ID: [id number] Author: ROSINA ESTRADA MD Service: ? Author Type: Physician Type: Progress Notes Filed: 04/24/2024 09:16 Note Text: [facility] [place] [facility] Department of Cardiovascular Medicine SECTION OF VASCULAR MEDICINE OUTPATIENT VISIT DATE March 30, 2024 OUTPATIENT VISIT TYPE ESTABLISHED Follow up regarding: erythromelalgia Allergies: is allergic to ciprofloxacin and hay fever [seasonal allergies]. Medications: Current Outpatient Medications Medication Sig Cetirizine (ZYRTEC) 10 mg cap Take 1 capsule by mouth once daily. baclofen (LIORESAL) 10 mg tablet Take 1 tablet by mouth as needed. buPROPion XL (WELLBUTRIN XL) 300 mg 24 hr tablet Take 1 tablet by mouth once daily. cephALEXin (KEFLEX) 250 mg capsule TAKE 1 CAPSULE BY MOUTH AFTER INTERCOURSE cholecalciferol (VITAMIN D3) 5,000 unit tab Take 5,000 Units by mouth once daily. pregabalin (LYRICA) 100 mg capsule Take 1 capsule by mouth two times a day. 100mg in AM and 150mg in PM estradiol (ESTRACE) 1 mg tablet Take 1 tablet by mouth once daily. MULTIVITAMIN TAB Take one(1) tablet daily. No current facility-administered medications for this visit. Review of history: [facility] 12/09/2023 -- previously saw Dr. Kilgore as well. 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 Subjective: Tried cetirizine -- she admits being surprised (I am a little bit too!) but has found that this actually has helped fairly well. No wounds or other fixed skin changes, exam the same. Reviewed PVR. Discussed next steps for evaluation with Neurology for small fiber neuropathy. Objective: BP 113/70 (BP Site: Right Arm, BP Position: Sitting, BP Cuff Size: Regular Adult) Pulse 72 Wt 86.6 kg (191 lb) LMP 10/10/2007 BMI 27.41 kg/m? General: Alert and oriented, in no acute distress, pleasant mood. Skin: Healthy, intact, no ulcerations, no rashes. Labs Reviewed Imaging 03/30/2024 PVR ank/becker/toe IMPRESSION RIGHT SIDE Resting right ankle brachial index: 1.18 Normal ankle brachial index at rest in the right leg. Right ankle: Normal at rest. Right small vessel disease versus vasoconstriction. LEFT SIDE Resting left ankle brachial index: 1.16 Normal ankle brachial index at rest in the left leg. Left ankle: Normal at rest. Left small vessel disease versus vasoconstriction. 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 PMHx significant for: __IBS __Degenerative disc disease s/p facet ablations __S/p vaginal hysterectomy __Depression __No hx of tobacco use __Body mass index is 26.69 kg/m?. __FHx -- unknown, patient adopted. Today 03/30/2024 is my second visit with her, previously seen by my colleague Dr. Kilgore with [facility] 03/05/2023. Presumptive diagnosis of erythromelagia -- also has had prior testing indicating polyneuropathy. Recalls that she had facet joint ablations in Nov 2021 and in March 2022 had worsening of foot symptoms. Recalls original onset in 02/2021 -- would take off shoes and feet would be bright red. It was the next year that she started the caudal injections for back. At appt last year she was given Rx for topical ketamine / amitriptyline and orders for PVR -- not yet complete. Cost was an issue with topical cream. Lyrica 100mg in AM and 150mg at night. Reports using Baclofen for back spasms but also to aid sleep. Admits to using ice on feet that that works better than anything else she has found. Reviewed need to take precautions to avoid frostbite injury, minimize direct contact and limit time using. She brought labs that had been previously requested -- reviewed with her, normal. JAK2 is in process. Discussed that EM has associations with many different conditions, particularly hematologic and neurologic -- presents diagnostic and especially management difficulties as likely several different disease entities are being lumped into same category of painful red swollen limb. Likely some overlap with acrocyanosis given dependent filling of skin -- discussed acrocyanosis is assoc with underlying nerve dysfunction as well. Seen for follow up. Cetirizine has helped symptoms. Reviewed PVR -- normal SERGO and waveforms at the ankle and midfoot, abnormal digit waveforms (above). Discussed that some patients have a phenotype of both erythromelalgia with inappropriate relaxation of vessels + component of Raynauds with tendency for spasm as well. Reviewed next steps in terms of neuro evaluation and other accessible treatments. She reports that the JAK2 testing was normal, will upload copy of results. Given improvement in symptoms she feels comfortable pushing next appt further out. plan: __Schedule with Neurology for additional evaluation regarding diagnosis of polyneuropathy and small fiber neuropathy. Not clear (more content not included)...[facility]06-27-2024 History of Present illness Narrative* Rosina Estrada MD - 03/30/2024 5:35 PM EDT Images from the original note were not included. [facility] [place] Department of Cardiovascular Medicine SECTION OF VASCULAR MEDICINE OUTPATIENT VISIT DATE March 30, 2024 OUTPATIENT VISIT TYPE ESTABLISHED Follow up regarding: erythromelalgia Allergies: is allergic to ciprofloxacin and hay fever [seasonal allergies]. Medications: Current Outpatient Medications Medication Sig Cetirizine (ZYRTEC) 10 mg cap Take 1 capsule by mouth once daily. baclofen (LIORESAL) 10 mg tablet Take 1 tablet by mouth as needed. buPROPion XL (WELLBUTRIN XL) 300 mg 24 hr tablet Take 1 tablet by mouth once daily. cephALEXin (KEFLEX) 250 mg capsule TAKE 1 CAPSULE BY MOUTH AFTER INTERCOURSE cholecalciferol (VITAMIN D3) 5,000 unit tab Take 5,000 Units by mouth once daily. pregabalin (LYRICA) 100 mg capsule Take 1 capsule by mouth two times a day. 100mg in AM and 150mg in PM estradiol (ESTRACE) 1 mg tablet Take 1 tablet by mouth once daily. MULTIVITAMIN TAB Take one(1) tablet daily. No current facility-administered medications for this visit. Review of history: [facility] 12/09/2023 -- previously saw Dr. Kilgore as well. 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 Subjective: Tried cetirizine -- she admits being surprised (I am a little bit too!) but has found that this actually has helped fairly well. No wounds or other fixed skin changes, exam the same. Reviewed PVR. Discussed next steps for evaluation with Neurology for small fiber neuropathy. Objective: BP 113/70 (BP Site: Right Arm, BP Position: Sitting, BP Cuff Size: Regular Adult) Pulse 72 Wt 86.6 kg (191 lb) LMP 10/10/2007 BMI 27.41 kg/m General: Alert and oriented, in no acute distress, pleasant mood. Skin: Healthy, intact, no ulcerations, no rashes. Labs Reviewed Imaging 03/30/2024 PVR ank/becker/toe IMPRESSION RIGHT SIDE Resting right ankle brachial index: 1.18 Normal ankle brachial index at rest in the right leg. Right ankle: Normal at rest. Right small vessel disease versus vasoconstriction. LEFT SIDE Resting left ankle brachial index: 1.16 Normal ankle brachial index at rest in the left leg. Left ankle: Normal at rest. Left small vessel disease versus vasoconstriction. 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 PMHx significant for: __IBS __Degenerative disc disease s/p facet ablations __S/p vaginal hysterectomy __Depression __No hx of tobacco use __Body mass index is 26.69 kg/m . __FHx -- unknown, patient adopted. Today 03/30/2024 is my second visit with her, previously seen by my colleague Dr. Kilgore with [facility] 03/05/2023. Presumptive diagnosis of erythromelagia -- also has had prior testing indicating polyneuropathy. Recalls that she had facet joint ablations in Nov 2021 and in March 2022 had worsening of foot symptoms. Recalls original onset in 02/2021 -- would take off shoes and feet would be bright red. It was the next year that she started the caudal injections for back. At appt last year she was given Rx for topical ketamine / amitriptyline and orders for PVR -- not yet complete. Cost was an issue with topical cream. Lyrica 100mg in AM and 150mg at night. Reports using Baclofen for back spasms but also to aid sleep. Admits to using ice on feet that that works better than anything else she has found. Reviewed need to take precautions to avoid frostbite injury, minimize direct contact and limit time using. She brought labs that had been previously requested -- reviewed with her, normal. JAK2 is in process. Discussed that EM has associations with many different conditions, particularly hematologic and neurologic -- presents diagnostic and especially management difficulties as likely several different disease entities are being lumped into same category of painful red swollen limb. Likely some overlap with acrocyanosis given dependent filling of skin -- discussed acrocyanosis is assoc with underlyingnerve dysfunction as well. Seen for follow up. Cetirizine has helped symptoms. Reviewed PVR -- normal SERGO and waveforms at the ankle and midfoot, abnormal digit waveforms (above). Discussed that some patients have a phenotype of both erythromelalgia with inappropriate relaxation of vessels + component of Raynauds with tendency for spasm as well. Reviewed next steps in terms of neuro evaluation and other accessible treatments. She reports that the JAK2 testing was normal, will upload copy of results. Given improvement in symptoms she feels comfortable pushing next appt further out. plan: __Schedule with Neurology for additional evaluation regarding diagnosis of polyneuropathy and smallfiber neuropathy. Not clear to me whether this is in some way due to her underlying spine disease or separate processentirely. __Cost was prohibitive for compounded topical ketamine, will start with trial of accessible medications and go from there. Continue Zyrtec 10mg once a day. As she had benefit with cetirizine, try adding Pepcid as well for additional antihistamine effect. __Trial supplement diosmin-hesperidin. Discussed that there is not huge data for this supplement aswith many other treatments for EM, but anecdotally have had patients with improvement on this supplement, is inexpensive and well tolerated. __Follow up: spring/summer 2024. Rosina Estrada MD documented in this [facility]04-15-2024 Discharge summary Author Christian Wadsworth [facility] January 17, 2024 12:48pm Note Date/Time January 17, 2024 12: 48pm [facility] Physical Therapy [facility] [facility] [place] [address] / REHABILITATION SERVICES DISCHARGE SUMMARY MR#: [id number] Acct: [id number] Name: MORENO VANESSA Rep #: [id number] : 1965 58 From: Cert. DARREL RuizT, OCS Referring Dr.: Dr. Jill Zelaya MD Status: REG RCR Insurance: [employer] SELF PAY INSURANCE Discharge Summary D/C summary: It has been my pleasure to treat MORENO VANESSA referred by Dr. Jill Zelaya MD, with the diagnosis of PAIN IN LEFT SHOULDER , CHRONIC PAIN,PAIN IN RIGHT HIP for a total of 7 visit(s). Discharge Date: Please see the following information for a summary of their discharge status. Subjective Subjective: Seen Dr Allie for hip - OA and hip pathology Able to get up from chair no pain Patient shoulder getting stronger Pain Right Hip: Pain Intensity (Out of 10): 0 Left Shoulder: Pain Intensity (Out of 10): 0 Overall Improvement % Improvement: 50 Objective Objective/Function: POSTURE: mild forward posture rounded shoulders NEURO: c/o paresthesia right foot reflexes L3-4,L4-5,L5 -S1 2/3 SYTMMTRIES: right leg longer GAIT: reciprocal pattern PALAPATION: tender I -T BAND ,AC joint HIP ROM: WNL all planes no pain LUMBAR ROM: flexion WNL ,extension min loss , slides min loss MMT: ( peak force) bip flexion 41.7 ,hip abduction 30.6 ,quads/hams 4/5 ,ankle 4/5 AROM: shoulder flexion 150 degrees ,abduction 150 degrees pain, IR L1 ,ER 90 degrees PROM shoulder flexion 160 degrees abduction 155 degrees ER pain MMT: ( peak force) infraspinatus 15.6 pain ,supraspinatus 16.,subscapularis 17.8,deltoid 18.3 Goals Goal 1:: Patient to be I with HEP for hip and shoulder Goal Progress: Goal Met Goal 2:: Patient improve peak force of hip by 5-10 # to increase strength and function with gait Goal Progress: Goal Met Goal 3:: Patient to improve peak force RTC by 10-15 # to improve function and ADLS [place] Goal Progress: Goal Met Goal 4:: Patient improve shoulder ROM 150 degrees for abduction and flexion to improve function with OH activities without pain. Goal Progress: Goal Met Goal 5:: Patient to improve walking > 30min with pain in hip Goal 6:: Patient to improve LFES score by 5 points or > to improve QOL and function Goal Progress: Goal Met Plan Plan: D/C D/C Information d/c sentence: If there are questions or concerns regarding this patient's physical therapy, please feel free to call me at [phone]. Thank you for the referral of thispatient. Sincerely, Christian Wadsworth PT, Cert T, OCS Balance/Gait/Functional tests Balance/Special Test Scores Lower Extremity Functional Score: 64 Improvement % Improvement: 50 <Electronically signed by Arnaud Thorpe PT. HOANG, OCS> 01/17/24 1248 CC: Dr. Jill Zelaya MD ~ TERESA Signed [facility] Work Phone: 1(148) 457-223003-07-2024 Instructions* Patient Instructions* Rosina Estrada MD - 12/09/2023 4:18 PM EST __Schedule with Neurology __Schedule PVR __Medications: Zyrtec 10mg once a day Aspirin 325mg once a day (take with food) Topical lidocaine patches or 4% gel __Follow up: 3 months documented in this encounterOhio[facility]03-07-2024 NoteHNO ID: [id number] Author: ROSINA ESTRADA MD Service: ? Author Type: Physician Type: Progress Notes Filed: 01/03/2024 13:00 Note Text: [facility] [place] [facility] Department of Cardiovascular Medicine SECTION OF VASCULAR MEDICINE OUTPATIENT VISIT DATE December 09, 2023 OUTPATIENT VISIT TYPE CONSULTATION Consult regarding: erythromelalgia Consult requested by: Robby Kilgore My final recommendations will be communicated back to the requesting physician by way of the shared medical record or by letter. Primary care physician: Jill Zelaya MD History of present illness: Moreno Vanessa is a 58 year old female who presents as New Consult (Erythromelalgia) PMHx significant for: __IBS __Degenerative disc disease s/p facet ablations __S/p vaginal hysterectomy __Depression __No hx of tobacco use __Body mass index is 26.69 kg/m?. __FHx -- unknown, patient adopted. Seen to establish care, previously seen by my colleague Dr. Kilgore with [facility] 03/05/2023. Presumptive diagnosis of erythromelagia. She also had prior evaluation with Neurology and was found to have a neuropathy (small vs large fiber?). Gave Rx for topical ketamine / amitriptyline. 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 Recalls that she had facet joint ablations in Nov 2021 and in March 2022 had worsening of foot symptoms. Recalls original onset in 02/2021 -- would take off shoes and feet would be bright red. It was the next year that she started the caudal injections for back. Had been on / off gabapentin over the years. Had been on gabapentin 600mg at night (made her too sleepy during the day for work). Now on Lyrica 100mg in AM and 150mg at night. On baclofen 10mg PRN at night -- since 2021. Originally using for back spasms, now uses it to get through the night / helps to fall asleep. Admits that nothing works better than ice. She brought labs that had been previously requested -- normal. JAK2 is in process. Allergies: is allergic to hay fever [other] and septra [sulfamethoxazole-trimethoprim]. Medications: baclofen (LIORESAL) 10 mg tablet Take 1 tablet by mouth as needed. buPROPion XL (WELLBUTRIN XL) 300 mg 24 hr tablet Take 1 tablet by mouth once daily. cephALEXin (KEFLEX) 250 mg capsule TAKE 1 CAPSULE BY MOUTH AFTER INTERCOURSE cholecalciferol (VITAMIN D3) 5,000 unit tab Take 5,000 Units by mouth once daily. pregabalin (LYRICA) 100 mg capsule Take 1 capsule by mouth two times a day. 100mg in AM and 150mg in PM estradiol (ESTRACE) 1 mg tablet Take 1 tablet by mouth once daily. IBUPROFEN ORAL Take by mouth as needed. MULTIVITAMIN TAB Take one(1) tablet daily. Past medical history: has a past medical history of Backache, unspecified, Degeneration of intervertebral disc, site unspecified (02/02/2006), Depressive disorder, not elsewhere classified (02/02/2006), Diarrhea, Dysmenorrhea, Health examination of defined subpopulation, Irritable bowel syndrome (2001), Other malaise and fatigue (03/2003), Pain in joint, pelvic region and thigh, Palpitations (10/13/2000), and Unspecified asthma(493.90). She has no past medical history of Atrial fibrillation (HCC), Autoimmune disease (HCC), Cancer (HCC), Chronic obstructive pulmonary disease (COPD) (HCC), Chronic renal insufficiency, Congestive heart failure (HCC), Coronary artery disease, Diabetes (HCC), Epilepsy (HCC), Fibromyalgia, Hypertension, Hypothyroidism, Motor vehicle accident, Obesity, Obstructive sleep apnea, Sleep disorder, Steroid long-term use, Stroke (HCC), Substance abuse (HCC), Syncope, or Traumatic brain injury ([facility]). Past surgical history: has a past surgical history that includes delivery only; lig/trnsxj flp tube abdl/vag appr uni/bi; colonoscopy flx dx w/collj spec when pfrmd (09/10/2006); vaginal hysterectomy uterus 250 gm/< (10/25/12); post colporrhaphy rectocele w/wo perineorrhaphy (10/25/12); and sling oper stres incontinence (10/25/12). Family history: family history includes Headache in her daughter; Other in an other family member. She was adopted. Social history: reports that she has never smoked. She has never used smokeless tobacco. She reports current alcohol use. She reports that she does not use drugs. REVIEW OF SYSTEMS: Review of systems: General Fever or chills - No Night sweats - No Change in weight - No Lumps in groin, underarms - No Neurological Headaches - YES Seizures - No Passing out - No Dizziness/light headedness - No Numbness, tingling, pins or needles - YES Weakness in arms or legs - No Head, eyes, ears, nose and throat Changes in hearing - No Changes in vision - No Nose bleeds - No Difficulty or pain with swallowing - No Cardiovascular Chest pain or pressure - No Palpitations - No Irregular heartbeat - No Shortne (more content not included)...[facility]03-07-2024 History of Present illness Narrative* Rosina Estrada MD - 12/09/2023 3:04 PM EST Images from the original note were not included. [facility] [place] [facility] Department of Cardiovascular Medicine SECTION OF VASCULAR MEDICINE OUTPATIENT VISIT DATE December 09, 2023 OUTPATIENT VISIT TYPE CONSULTATION Consult regarding: erythromelalgia Consult requested by: Robby Kilgore My final recommendations will be communicated back to the requesting physician by way of the sharedmedical record or by letter. Primary care physician: Jill Zelaya MD History of present illness: Moreno Vanessa is a 58 year old female who presents as New Consult (Erythromelalgia) PMHx significant for: __IBS __Degenerative disc disease s/p facet ablations __S/p vaginal hysterectomy __Depression __No hx of tobacco use __Body mass index is 26.69 kg/m . __FHx -- unknown, patient adopted. Seen to establish care, previously seen by my colleague Dr. Kilgore with [facility] 03/05/2023. Presumptive diagnosis of erythromelagia. She also had prior evaluation with Neurology and was found to have a neuropathy (small vs large fiber?). Gave Rx for topical ketamine / amitriptyline. 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 Recalls that she had facet joint ablations in Nov 2021 and in March 2022 had worsening of foot symptoms. Recalls original onset in 02/2021 -- would take off shoes and feet would be bright red. It was the next year that she started the caudal injections for back. Had been on / off gabapentin over the years. Had been on gabapentin 600mg at night (made her too sleepy during the day for work). Now on Lyrica 100mg in AM and 150mg at night. On baclofen 10mg PRN at night -- since 2021. Originally using for back spasms, now uses it to get through the night / helps to fall asleep. Admits that nothing works better than ice. She brought labs that had been previously requested -- normal. JAK2 is in process. Allergies: is allergic to hay fever [other] and septra [sulfamethoxazole-trimethoprim]. Medications: baclofen (LIORESAL) 10 mg tablet Take 1 tablet by mouth as needed. buPROPion XL (WELLBUTRIN XL) 300 mg 24 hr tablet Take 1 tablet by mouth once daily. cephALEXin (KEFLEX) 250 mg capsule TAKE 1 CAPSULE BY MOUTH AFTER INTERCOURSE cholecalciferol (VITAMIN D3) 5,000 unit tab Take 5,000 Units by mouth once daily. pregabalin (LYRICA) 100 mg capsule Take 1 capsule by mouth two times a day. 100mg in AM and 150mg in PM estradiol (ESTRACE) 1 mg tablet Take 1 tablet by mouth once daily. IBUPROFEN ORAL Take by mouth as needed. MULTIVITAMIN TAB Take one(1) tablet daily. Past medical history: has a past medical history of Backache, unspecified, Degeneration of intervertebral disc, site unspecified (02/02/2006), Depressive disorder, not elsewhere classified (02/02/2006), Diarrhea, Dysmenorrhea, Health examination of defined subpopulation, Irritable bowel syndrome (2001), Other malaise and fatigue (03/2003), Pain in joint, pelvic region and thigh, Palpitations (10/13/2000), and Unspecified asthma(493.90). She has no past medical history of Atrial fibrillation (HCC), Autoimmune disease (HCC), Cancer (HCC), Chronic obstructive pulmonary disease (COPD) (HCC), Chronic renal insufficiency, Congestive heartfailure (HCC), Coronary artery disease, Diabetes (HCC), Epilepsy (HCC), Fibromyalgia, Hypertension, Hypothyroidism, Motor vehicle accident, Obesity, Obstructive sleep apnea, Sleep disorder, Steroid long-term use, Stroke (HCC), Substance abuse (HCC), Syncope, or Traumatic brain injury ([facility]). Past surgical history: has a past surgical history that includes delivery only; lig/trnsxjflp tube abdl/vag appr uni/bi; colonoscopy flx dx w/collj spec when pfrmd (09/10/2006); vaginal hysterectomy uterus 250 gm/< (10/25/12); post colporrhaphy rectocele w/wo perineorrhaphy (10/25/12); and sling oper stres incontinence (10/25/12). Family history: family history includes Headache in her daughter; Other in an other family member. She was adopted. Social history: reports that she has never smoked. She has never used smokeless tobacco. She reports current alcohol use. She reports that she does not use drugs. REVIEW OF SYSTEMS: Review of systems: General Fever or chills - No Night sweats - No Change in weight - No Lumps in groin, underarms - No Neurological Headaches - YES Seizures - No Passing out - No Dizziness/light headedness - No Numbness, tingling, pins or needles - YES Weakness in arms or legs - No [...] - No Nausea/vomiting - No Diarrhea/Constipation - YES Stomach pain after eating - No Blood in stool - No Black stool - No Genitourinary Pain with urination - No Blood in urine - No Gynecology - No Abnormal vaginal bleeding - No History of loss - No Extremity Bulging veins - No Swelling in arms or legs - No Redness of extremities - YES Pain with walking - YES Color change of hands/feet/digits - YES Musculoskeletal Joint pain - YES Joint swelling - No Back pain - YES Muscle pain or ache - YES Skin Rash - No Lesions - No Slow healing sores - No Tight or thickened skin - No Hematology Low blood counts - No Easy bruising - No Blood transfusions - No Psychology Depressed mood - YES Anxiety or history of panic attacks - No History of recreational drug use - No Cancer screening (up to date?): Colonoscopy: YES Pap smear: N/A Mammogram: YES Prostate: N/A Smoking history: -Current or past smoker? No -If current smoker, are you interested in help with quitting? N/A Physical exam: [facility] 10/10/2007 General: Alert and oriented, in no [...] No abdominal bruit or palpable mass. Musculoskeletal: No cyanosis or clubbing. Peripheral vascular: Dorsalis pedis 1+/2 bilaterally and posterior tibial pulses 2+/2 bilaterally. Feet and toes are slightly cool and clammy, appear more red/purple with dependency and assisted living director / pale with placing in neutral position on exam table. Lower extremities: No wounds, no edema, no rashes or skin changes. Normal muscle bulk in legs and intact strength, no foot drop. Imaging Pending PVRs Labs 12/08/2023 CMP normal results with Cr 0.96, fasting glucose mildly abnormal 102 CBC w diff -- normal results Total cholesterol 185, LDL 96, HDL 69, TG 99 TSH 1.29 09/24/2022 ESR normal STEFFANY-1, SS-A, SS-B, SM, SALES TRAINING COORDINATOR, Scl-70, dsDNA, centromere B antibodies -- negative Lyme ab negative CRP negative Immunofixation screen -- no monoclonality Arsenic, mercury, lead screen neg B6 and B12 normal ranges A1c 5.6% Urine random protein neg <6mg/dL Vit D normal range 52 Impression Moreno Vanessa is a 58 year old female who presents to establish care regarding suspected erythromelalgia. PMHx significant for: __IBS __Degenerative disc disease s/p facet ablations __S/p vaginal hysterectomy __Depression __No hx of tobacco use __Body mass index is 26.69 kg/m . __FHx -- unknown, patient adopted. Seen to establish care, previously seen by my colleague Dr. Kilgore with [facility] 03/05/2023. Presumptive diagnosis of erythromelagia -- also has had prior testing indicating polyneuropathy. Recalls that she had facet joint ablations in Nov 2021 and in March 2022 had worsening of foot symptoms. Recalls original onset in 02/2021 -- would take off shoes and feet would be bright red. It was the next year that she started the caudal injections for back. At appt last year she was given Rx for topical ketamine / amitriptyline and orders for PVR -- not yet complete. Cost was an issue with topical cream. Lyrica 100mg in AM and 150mg at night. Reports using Baclofen for back spasms but also to aid sleep. Admits to using ice on feet that that works better than anything else she has found. Reviewed need to take precautions to avoid frostbite injury, minimize direct contact and limit time using. She brought labs that had been previously requested -- reviewed with her, normal. JAK2 is in process. Discussed that EM has associations with many different conditions, particularly hematologic and neurologic -- presents diagnostic and especially management difficulties as likely several different disease entities are being lumped into same category of painful red swollen limb. Likely some overlap with acrocyanosis given dependent filling of skin -- discussed acrocyanosis is assoc with underlyingnerve dysfunction as well. Recommendations: __Schedule with Neurology for additional evaluation regarding diagnosis of polyneuropathy. Not clear to me whether this is in some way due to her underlying spine disease or separate process entirely. __Schedule PVR for arterial assessment. __Cost was prohibitive for compounded topical ketamine, will start with trial of accessible medications and go from there. Medications: Zyrtec 10mg once a day Aspirin 325mg once a day (take with food) Topical lidocaine patches or 4% gel __Follow up: 3 months Rosina Estrada MD documented in this encounterCleveland [id number] History of Present illness Narrative* Robby Kilgore MD - 03/01/2023 11:15 AM EDT [facility] [place] [facility] Department of Cardiovascular Medicine SECTION OF VASCULAR MEDICINE OUTPATIENT VISIT DATE March 01, 2023 OUTPATIENT VISIT TYPE CONSULTATION Consult regarding: Erythromelalgia Consult requested by: My final recommendations will be communicated back to the requesting physician by way of the sharedmedical record or by letter. Primary care physician: No primary care provider on file. History of present illness: This is a 57 year old woman here to determine if she has Erythromelalgia. She has symptoms consistent with this condition. She has been seen by neurology and other subspecialties and has come to the conclusion she may havethis disorder. 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 I will send her a Rx for the compound medication. All questions answered. Robby Kilgore MD [facility] History of Past illness Narrative* Problem Noted Date Resolved Date Actinic Keratosis (Premalignant AK)) 05/31/2011 10/18/2012 Solar Lentigines 05/31/2011 10/18/2012 Actinic skin damage 05/31/2011 10/18/2012 Melanocytic nevi of trunk 05/31/20112012 Melanocytic nevus of upper extremity 05/31/2011 10/18/2012 Garcia angioma 05/31/2011 10/18/2012 Excessive or frequent menstruation 09/18/2009 10/24/2012 Other seborrheic keratosis 09/03/200810/18 Viral warts, unspecified 09/03/2008 013 Inflamed seborrheic keratosis 09/03/2008 Other chronic dermatitis due to solar radiation 09/03/2008 10/18/2012 Diarrhea 09/10/2006 10/18/2012 Internal hemorrhoids without mention of complica tion 09/10/2006 10/18/2012 Bicipital tenosynovitis 05/07/2006 10/18/19 13 Other affections of shoulder region, not elsewhere classified 05/07/2006 10/18/2012 Depressive disorder, not elsewhere classified 10/18/2012 Other malaise and fatigue 03/04/20032012 Palpitations 10/13/2000 10/18/2012 Irritable bowel syndrome 013 Unspecified asthma(493.90) 10/18 Overview: Excercise/Animal Dander documented as of this encounter (statuses as of 03/05/2023) [facility] History of Past illness Narrative* Problem Noted Date Diagnosed Date Resolved Date Actinic Keratosis (Premalignant AK)) 05/31/2011 10/18/2012 Solar Lentigines 05/31/2011 10/18/2012 Actinic skin damage 05/31/2011 10/18/19 13 Melanocytic nevi of trunk 05/31/2011 Melanocytic nevus of upper extremity 05/31/2011 10/18/2012 Garcia angioma 05/31/2011 10/18/2012 Excessive or frequent menstruation 09/18/2009 10/24/2012 Other seborrheic keratosis 09/03/2008 0 10/18/2012 Viral warts, unspecified 09/03/2008 Inflamed seborrheic keratosis 09/03/2008 10/18/2012 Other chronic dermatitis due to solar radiation 09/03/2008 10/18/2012 Diarrhea 09/10/2006 10/18/2012 Internal hemorrhoids without mention of complication 09/10/2006 10/18/2012 Bicipital tenosynovitis 05/07/200610/04 Other affections of shoulder region, not elsewhere classified 05/07/2006 10/18/2012 Depressive disorder, not elsewhere classified 02/03/20 06 10/18/2012 Other malaise and fatigue 03/04/2003 Palpitations 10/13/2000 10/18/2012 Irritable bowel syndrome Unspecified asthma(493.90) 0 10/18/2012 Overview: Excercise/Animal Dander documented as of this encounter (statuses as of 01/04/2024) [facility] noteNo assessment information availableWCity Hospital Work Phone: Evaluation note* Diagnosis Onset Date Resolution Status Scoliosis of lumbar region d ue to degenerative disease of spine in adult acute Scoliosis of lumbar region d ue to degenerative disease of spine in adult acute [facility] Work Phone: Evaluation note* Diagnosis Onset Date Resolution Status Scoliosis of lumbar region d ue to degenerative disease of spine in adult acute Scoliosis of lumbar region d ue to degenerative disease of spine in adult acute Mild depression acute Mild intermittent asthma in adult without complication acute Immunization due noneactive Encounter for monitoring amitriptyline therapy noneactive Establishing care with new doctor, encounter for noneactive Degenerative disc disease, lumbar noneactive Polyneuropathy noneactive [facility] Work Phone: Evaluation note* Diagnosis Onset Date Resolution Status Mild depression acute Mild intermittent asthma in adult without complication acute Immunization due noneactive Encounter for monitoring amitriptyline therapy noneactive Establishing care with new doctor, encounter for noneactive Degenerative disc disease, lumbar noneactive Polyneuropathy noneactive [facility] Work Phone: Evaluation note* Diagnosis Erythromelalgia (HCC)- Primary 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 [facility] Diagnosis Onset Date Resolution Status Mild depression acute Mild intermittent asthma in adult without complication acute Degenerative disc disease, lumbar noneactive Polyneuropathy noneactive Mild depression acute Mild intermittent asthma in adult without complication acute Acute pain of left shoulder noneactive Chronic right hip pain nonea ctive Degenerative disc disease, lumbar noneactive Polyneuropathy noneactive Encounter for routine gynecological examination noneactive [facility] Work Phone: Evaluation note* Diagnosis Onset Date Resolution Status Mild depression acute Mild intermittent asthma in adult without complication acute Insomnia noneactive Screening for cardiovascular condition noneactive Chronic right hip pain nonea ctive Degenerative disc disease, lumbar noneactive Polyneuropathy noneactive Chronic left shoulder pain n oneactive BMI 27.0-27.9,adult acute Body dysmorphic disorder acu te Mild depression acute Overweight acute Scoliosis of lumbar region d ue to degenerative disease of spine in adult acute Right hip pain noneactive Acute bronchitis acute Asthma exacerbation acute Peripheral edema acute [facility] Work Phone: Evaluation note* Diagnosis Erythromelalgia (HCC)- Primary Erythromelalgia Neuropathy Mononeuritis of unspecified site Small fiber neuropathy Unspecified hereditary and idiopathic peripheral neuropathy Acrocyanosis (HCC) Other peripheral vascular disease documented [facility] this encounter [facility]* Diagnosis Erythromelalgia (HCC)- Primary Erythromelalgia Raynaud's disease without gangrene documented in this encounter [facility] for referral (narrative)* Outpatient Procedure (Routine) - Denied Specialty Diagnoses / Procedures Referred By Contac t Referred To Contact [facility] [place] Diagnoses Erythromelalgia (HCC) Procedures PVR ANK/BECKER/TOE PACO VAS LAB NON-INVAS PHYSIOLOGIC STD EXTREMITY ART 2 LEVEL Robby Kilgore MD [id number] [place] [address] [facility] [place] [address] [place] [address] Referral ID Status Reason Start Date Expiration Date V isits Requested Visits Authorized [id number] Denied Auto-Generate d Referral 03/05/2023 03/04/2024 1 0 [facility] for referral (narrative)* Outpatient Procedure (Routine) - Authorized Specialty Diagnoses / Procedures Referred By Contac t Referred To Contact [facility] [place] Diagnoses Erythromelalgia (HCC) Procedures PVR ANK/BECKER/TOE PACO VAS LAB NON-INVAS PHYSIOLOGIC STD EXTREMITY ART 2 LEVEL Rosina Estrada MD [address] [address] [facility] [place] [address] [place] [address] Referral ID Status Reason Start Date Expiration Date Visits Requested Visits Authorized [id number] Authorized Auto-Generat ed Referral 12/09/2023 12/08/2024 1 1 * Consult, Test, Treat (Routine) - Authorized Specialty Diagnoses / Procedures Referred By Contac t Referred To Contact Neurology Diagnoses Neuropathy Small fiber neuropathy Procedures CONSULT TO NEUROLOGY OFFICE/OUTPATIENT [facility] 60 MINUTES Rosina Estrada MD [address] [place] [address] Referral ID Status Reason Start Date Expiration Date Visits Requested Visits Authorized [id number] Authorized PCP Requested Referral 12/09/2023 12/08/2024 1 1 [facility] for referral (narrative)No reason for referral information availableWCity Hospital Work Phone: Chief Complaint and Reason for Visit Chief Complaint 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 Chief Complaint 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 EST CARE - HAS PPW Reason for Visit Scoliosis of lumbar region due to degenerative disease of spine in adult Scoliosis of lumbar region due to degenerative disease of spine in adult Mild depression Mild intermittent asthma in adult without complication Immunization due Encounter for monitoring amitriptyline therapy Establishing care with new doctor, encounter for Degenerative disc disease, lumbar Polyneuropathy Chief Complaint MANAGER STRATEGY & ACCOUNT. 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) October 17, 2024 1 1:47am 1 M FU November 14, 2024 11:48am 4 M FU December 07, 2024 12:5 7pm Reason for Visit Admit Date Obesity (BMI 30-39.9) October 17, 2024 11:47am Overweight October 17, 2024 1 1:47am Encounter for routine gynecological exam ination October 17, 2024 11:47am Body dysmorphic disorder November 14, 2024 11:48am Depression November 14, 2024 11:48am Overweight November 14, 2024 11:48am Overweight (BMI 25.0-29.9) November 11:48am Depression December 07, 2024 12:5 7pm Edema of lower extremity December 07, 2024 12:57pm Polyneuropathy December 07, 2024 12:5 7pm Chief Complaint Admit Date 1 M FU November 14, 2024 11:48am 4 M FU December 07, 2024 12:5 7pm Weight Management January 19, 2025 12: 24pm 6 M FU January 25, 2025 12: 58pm RUQ PAIN March 06, 2025 7:44a m GALLSTONES March 07, 2025 3:07p m Reason for Visit Admit Date Body dysmorphic disorder November 14, 2024 11:48am Depression November 14, 2024 11:48am Overweight November 14, 2024 11:48am Overweight (BMI 25.0-29.9) November 11:48am Depression December 07, 2024 12:5 7pm Edema of lower extremity December 07, 2024 12:57pm Polyneuropathy December 07, 2024 12:5 7pm Body dysmorphic disorder January 19 12:24pm Depression January 19, 2025 12: 24pm Overweight January 19, 2025 12: 24pm Overweight (BMI 25.0-29.9) January 19 025 12:24pm Mild intermittent asthma in adult withou t complication January 25, 2025 12:58pm Mild depression January 25, 2025 12: 58pm Immunization due January 25, 2025 12: 58pm Overweight (BMI 25.0-29.9) January 25 2 025 12:58pm Degenerative disc disease, lumbar January 25, 2025 12:58pm Polyneuropathy January 25, 2025 12: 58pm Bilateral hip pain January 25, 2025 12: 58pm Reason for Visit Admit Date Body dysmorphic disorder November 14, 2024 11:48am Depression November 14, 2024 11:48am Overweight November 14, 2024 11:48am Overweight (BMI 25.0-29.9) November 11:48am Depression December 07, 2024 12:5 7pm Edema of lower extremity December 07, 2024 12:57pm Polyneuropathy December 07, 2024 12:5 7pm Body dysmorphic disorder January 19 12:24pm Depression January 19, 2025 12: 24pm Overweight January 19, 2025 12: 24pm Overweight (BMI 25.0-29.9) January 19 2 025 12:24pm Mild intermittent asthma in adult withou t complication January 25, 2025 12:58pm Mild depression January 25, 2025 12: 58pm Immunization due January 25, 2025 12: 58pm Overweight (BMI 25.0-29.9) Luisa 24th, 2 025 12:58pm Degenerative disc disease, lumbar January 25, 2025 12:58pm Polyneuropathy January 25, 2025 12: 58pm Bilateral hip pain January 25, 2025 12: 58pm RUQ abdominal pain March 07, 2025 3:07p m Summary Purpose Family History No Family History Records Found Advance Directives No Advanced Directives Records Found Advance Directive Response Recorded Date/ Time Living Will No July 20 10:50am Do you have a Healthcare Power of Chief Underwriter? No July 20, 2024 10:50am Reason for Referral Specialty Diagnoses / Procedures Referred By Contac t Referred To Contact [facility] [place] Diagnoses Erythromelalgia (HCC) Procedures CARDIOVASCULAR MEDICINE OP FOLLOW UP APPT ORDER Rosina Estrada MD [address] [place] [address] [facility] [place] [address] [place] [address] Referral ID Status Reason Start Date Expiration Date Visits Requested Visits Authorized [id number] Ref Not Required PCP Requested Referral 01/24/2025 04/24/2025 1 1 Additional Source Comments Goals (unrecognized section and content) Goals may be documented in a n alternate sectionGoals may be documented in an alternate sectionGoals may be documented in an alternate sectionGoals may be documented in an alternate sectionGoals may be documented in an alternate sectionGoals may be documented in an alternate sectionGoals may be documented in an alternate sectionGoals may be documented in an alternate sectionGoals may be documented in an alternate sectionGoals may be documented in an alternate sectionGoals may be documented in an alternate sectionGoals may be documented in an alternate sectionGoals may be documented in an alternate section Care Teams (unrecognized sec tion and content) Team Status: Active Member Role Status Dates Dr. Robby Larson MD Family Provider Active Dr. Jill Zelaya MD Primary Care Provider Active Team Status: Inactive Member Role Status Dates Dr. Robby Pride MD Primary Care Provider, Referr ing Provider Active Dr. Jill Zelaya MD Attending Provider Active Team Status: Inactive Member Role Status Dates Dr. Robby Pride MD Primary Care Pr ovider, Attending Provider, Referring Provider Active Team Status: Inactive Member Role Status Dates Dr. Robby Pride MD Primary Care Provider Active Dr. German Corbin MD Attending Provider, Referring Provider Active Team Status: Inactive Member Role Status Dates Dr. Jill Zelaya MD Primary Care Pro vider, Attending Provider, Referring Provider Active Team Status: Inactive Member Role Status Dates Dr. Jill Zelaya MD Primary Care Provider, Attendi ng Provider Active Team Status: Inactive Member Role Status Dates Dr. Robby Pride MD Referring Provider Active Dr. Yuli Ames MD Attending Provider Active Dr. Jill Zelaya MD Primary Care Provider Active Team Status: Inactive Member Role Status Dates Dr. Jill Zelaya MD Primary Care Provider Active Dr. Yuli Ames MD Attending Provider, Referr ing Provider Active Team Status: Inactive Member Role Status Dates Dr. Jill Zelaya MD Primary Care Provider, Referri ng Provider Active Dr. Yuli Ames MD Attending Provider Active Team Status: Inactive Member Role Status Dates Dr. Jill Zelaya MD Primary Care Provider, Referri ng Provider Active Dr. Billy Olivier DO Attending Provider Active Team Status: Inactive Member Role Status Dates Dr. Jill Zelaya MD Primary Care Provider Active Dr. Almas Poole MD Attending Provider Active Team Status: Inactive Member Role Status Dates Dr. Jill Zelaya MD Primary Care Provider, Referri ng Provider Active MIAH Salinas Attending Provider Active Team Status: Active Member Role Status Dates Dr. Jill Zelaya MD Primary Care Provider, Attendi ng Provider Active Team Status: Inactive Member Role Status Dates Dr. Jill Zelaya MD Primary Care Provider Active MIAH Salinas Attending Provider, Referring Pro vider Active Team Status: Inactive Member Role Status Dates MAGUI BUSTAMANTE Other Provider Active Dr. Jill Zelaya MD Primary Care Pro vider, Attending Provider, Referring Provider Active Sat Act Instructor Relationship Specialty Start Date End Date Jill Zelaya MD NO FORWARDING ADDRESS PCP - General Internal Medicine 03/10/23 Sat Act Instructor Relationship Specialty Start Date End Date Jill Zelaya MD PCP - General Internal Medicine 03/10/23 Team Status: Inactive Member Role Status Dates Dr. Jill Zelaya MD Primary Care Provider Active Start: October 17, 2024 End: October 17, 2024 Dr. Jill Zelaya MD Referring Provider Active Start: October 17, 2024 End: October 17, 2024 Dr. Yuli Ames MD Attending Provider Active Start: October 17, 2024 End: October 17, 2024 Team Status: Inactive Member Role Status Dates Dr. Jill Zelaya MD Primary Care Provider Active Start: November 14, 2024 End: November 14, 2024 Dr. Jill Zelaya MD Referring Provider Active Start: November 14, 2024 End: November 14, 2024 Dr. Yuli Ames MD Attending Provider Active Start: November 14, 2024 End: November 14, 2024 Team Status: Inactive Member Role Status Dates Dr. Jill Zelaya MD Primary Care Provider Active Start: December 07, 2024 End: December 07, 2024 Dr. Jill Zelaya MD Referring Provider Active Start: December 07, 2024 End: December 07, 2024 Dr. David David MD Attending Provider Active Start: December 07, 2024 End: December 07, 2024 Team Status: Inactive Member Role Status Dates Dr. Jill Zelaya MD Primary Care Provider Active Start: December 27, 2024 End: December 27, 2024 Dr. David David MD Attending Provider Active Start: December 27, 2024 End: December 27, 2024 Team Status: Active Member Role Status Dates Dr. Jill Zelaya MD Primary Care Provider Active Team Status: Inactive Member Role Status Dates Dr. Jill Zelaya MD Primary Care Provider Active Start: January 19, 2025 End: January 19, 2025 Dr. Jill Zelaya MD Referring Provider Active Start: January 19, 2025 End: January 19, 2025 Dr. Yuli Ames MD Attending Provider Active Start: January 19, 2025 End: January 19, 2025 Team Status: Inactive Member Role Status Dates Dr. Jill Zelaya MD Primary Care Provider Active Start: January 25, 2025 End: January 25, 2025 Dr. Jill Zelaya MD Attending Provider Active Start: January 25, 2025 End: January 25, 2025 Dr. Jill Zelaya MD Referring Provider Active Start: January 25, 2025 End: January 25, 2025 Team Status: Active Member Role Status Dates Dr. Jill Zelaya MD Primary Care Provider Active Start: March 06, 2025 Dr. Fatemeh Urbina MD Attending Provider Active Start: March 06, 2025 Dr. Fatemeh Urbina MD Referring Provider Active Start: March 06, 2025 Team Status: Inactive Member Role Status Dates Dr. Jill Zelaya MD Primary Care Provider Active Start: March 07, 2025 End: March 07, 2025 Dr. Jill Zelaya MD Referring Provider Active Start: March 07, 2025 End: March 07, 2025 Dr. Fernando Ontiveros MD Attending Provider Active Start: March 07, 2025 End: March 07, 2025 Team Status: Inactive Member Role Status Dates Dr. Jill Zelaya MD Primary Care Provider Active Start: March 06, 2025 End: March 06, 2025 Dr. Fatemeh Urbina MD Attending Provider Active Start: March 06, 2025 End: March 06, 2025 Dr. Fatemeh Urbina MD Referring Provider Active Start: March 06, 2025 End: March 06, 2025 Source Comments (unrecognize d section and content) In the event this informatio n is protected by the Federal Confidentiality of Alcohol and Drug Abuse Patient Records regulations: The Federal rules restrict any use of the information to criminally investigate or prosecute any alcohol or drug abuse patient.[facility] the event this information is protected by the Federal Confidentiality of Alcohol and Drug Abuse Patient Records regulations: The Federal rules restrict any use of the information to criminally investigate or prosecute any alcohol or drug abuse patient.[facility] the event this information is protected by the Federal Confidentiality of Alcohol and Drug Abuse Patient Records regulations: The Federal rules restrict any use of the information to criminally investigate or prosecute any alcohol or drug abuse patient.[facility] Reason for Visit (unrecogniz ed section and content) Reason Comments Consult Specialty Diagnoses / Procedures Referred By Roger cochran Referred To Contact Vascular Medicine / VASCULAR MEDICINE Diagnoses Erythromelalgia Procedures NEW/CON PATIENT Self Robby Kilgore MD [address] [facility] [address] [place] [address] Referral ID Status Reason Start Date Expiration Date Visits Requested Visits Authorized [id number] Closed Financial Clearance Required - OON Payor OON Notification Letter Clearance Not Met -Financial Clearance Bypassed 03/05/2023 06/03/2023 1 1 Reason Comments Consult Erythromelalgia Reason Comments Established Patient INFORMATION SOURCE (unrecogn ized section and content) DATE CREATED AUTHOR 03/16/2023 [facility] DATE CREATED AUTHOR AUTHOR'S ORGANIZ ATION 04/26/2024 [facility] DATE CREATED AUTHOR AUTHOR'S ORGANIZ ATION 03/14/2025 [facility] FOR RECORDS PERTAINING TO PATIENTS WHO ARE [...] BE BASED ON THE PRIMARY CLINICAL RECORDS. [facility]. provides no warranty or guarantee of the accuracy or completeness of information in this document.
[2025-03-15] MEDS: Lactated Ringers 1,000 ML 15 ML IV (07:18)
[2025-03-15] MEDS: INDOCYANINE GREEN 3.75 MG in Syringe 1.5 ML 999 MG IV (07:38)
--- NOTE | 2025-03-15 07:47 | PCM.HP.STD ---
HPI - General General Date of Admission: 03/15/25 Date of Service: 03/15/25 Chief Complaint: RUQ pain HPI Narrative MORENO VANESSA, is a 59 F who presents fpr robotic cholecystectomy. recent RUq pain and gallstones [facility] Medical History (Updated 03/09/25 @ 10:45 by Sheila Snow) Anxiety History of IBS History of stress test RUQ abdominal pain Wears glasses History of steroid therapy Back pain Non-smoker Colitis Leg cramps History of pain when walking History of edema Acute diarrhea Neuropathy of right foot Peripheral neuropathy Erythromelalgia Scoliosis Asthma Degenerative disc disease Depression Home Medications ?Medication ?Instructions ?Recorded ?Last Taken ?Type multivitamin 1 tab PO DAILY 06/17/22 03/14/25 History ascorbate calcium (vitamin C) 500 500 mg PO DAILY 09/24/22 03/14/25 History mg tablet cholecalciferol (vitamin D3) 125 125 mcg PO DAILY 09/24/22 03/14/25 History mcg (5,000 unit) tablet flaxseed oil 1,000 mg capsule 1,000 mg PO DAILY 09/24/22 03/14/25 History budesonide-formoterol HFA 160 2 puff inhalation .Q4-6 PRN 11/05/23 Unknown Rx mcg-4.5 mcg/actuation aerosol shortness of breath or wheezing inhaler (Symbicort) #10.2 grams estradiol 1 mg tablet (Estrace) 1 mg PO DAILY #90 tabs 12/05/24 03/14/25 Rx duloxetine 60 mg capsule,delayed 60 mg PO BID #60 caps 12/07/24 03/14/25 Rx release furosemide 20 mg tablet 20 mg PO BID #60 tabs 12/07/24 03/14/25 Rx lidocaine-prilocaine 2.5 %-2.5 % 1 g topical .QID PRN pain #60 grams 12/07/24 Unknown Rx topical cream baclofen 10 mg tablet 10 mg PO QDAY PRN muscle spasm #30 01/16/25 Unknown Rx tabs dicyclomine 10 mg capsule 10 mg PO TID #30 caps 03/07/25 Unknown Rx cetirizine 10 mg tablet (24Hour 10 mg PO DAILY PRN allergy symptoms 03/09/25 03/14/25 History Allergy) meloxicam 7.5 mg tablet 7.5 mg PO DAILY PRN pain 03/09/25 03/14/25 History naltrexone 8 mg-bupropion 90 mg 1 tab PO BID WT LOSS 03/09/25 03/12/25 History tablet,extended release (Contrave) potassium chloride 10 mEq 10 meq PO QHS 03/09/25 03/14/25 History tablet,extended release Allergy/AdvReac Type Severity Reaction Status Date / Time Sulfa (Sulfonamide Allergy Mild rash Verified 03/15/25 07:10 Antibiotics) acetaminophen (From Vicodin) AdvReac Intermediate Other Verified 03/15/25 07:10 hydrocodone (From Vicodin) AdvReac Intermediate Other Verified 03/15/25 07:10 Family History Other Adopted Surgical History Hx of colonoscopy History of surgical procedure H/O tubal ligation S/P laparoscopic assisted vaginal hysterectomy (LAVH) delivery delivered Social History adopted: Yes household members: spouse current occupational status: employed current occupation: [employer] Smoking Status: Never smoker Electronic Cigarette Use: not used alcohol intake: current alcohol intake frequency: holidays/special occasions only details: social substance use type: does not use caffeine: Yes what type of physical activity do you participate in: none seatbelt use: always do you feel safe at home: Yes additional social history: [place]bar[place]- Vital Signs Vital Signs Vital Signs: 03/15/25 07:12 03/15/25 07:12 Temperature 98.1 F Temperature Source Temporal Pulse Rate 82 Respiratory Rate 16 Respiratory Pattern Normal Blood Pressure 118/60 Blood Pressure Mean 79 Blood Pressure Source Monitor Blood Pressure Position Supine Blood Pressure Location Left Arm Pulse Ox 97 Oxygen Delivery Method Room Air Weight Weight: 201 lb 11.567 oz Body Mass Index (BMI) 29.7 Physical Exam Const alert and oriented x3 Results Lab / Micro Data 03/13/25 10:03 Assessment & Plan Assessment/Plan (1) RUQ abdominal pain: PLAN: Plan robotic rachel today
--- NOTE | 2025-03-15 07:58 | PRE.ANES_ITS ---
ASA Classification* ASA Classification ASA Classification: 2 Assessment & Plan Anesthesia* Anesthesia Assessment Anesthesia Assessment: Discussed sedation and/or anesthesia options, risks, benefits, and alternatives with patient/parents/legal guardian/POA. Questions invited. The patient/parents/legal guardian/POA seems to understand and agrees to proceed with anesthesia plan. Reviewed the physical assessment, medical history, allergy history and patient home medications list prior to surgery/procedure/anesthetic and documented any changes. Performed airway and anesthesia risk assessments. Anesthesia Type Anesthesia Type: General Anesthesia Focused Assessment* Temperature: 98.1 F Pulse Rate: 82 Blood Pressure: 118/60 Respiratory Rate: 16 Pulse Ox: 97 Airway Assessment Mouth opens: >3 cm Mallampati Score: II Labs Anesthesia Preop lab: CBC WBC 7.4 K/mm3 (4.4-11.0) 08/15/24 08:42 08/15/24 RBC 4.29 M/mm3 (4.2-5.4) 08/15/24 08:42 08/15/24 Hgb 13.4 g/dL (12.0-15.0) 08/15/24 08:42 08/15/24 Hct 40.8 % (37-47) 08/15/24 08:42 08/15/24 Plt Count 323 K/mm3 (150-450) 08/15/24 08:42 08/15/24 CHEMISTRY Potassium 4.2 mmol/L (3.3-5.1) 03/13/25 10:03 03/13/25 Sodium 140 mmol/L (133-145) 03/13/25 10:03 03/13/25 Magnesium 2.3 mg/dL (1.6-2.6) 08/15/24 08:42 08/15/24 BUN 17 mg/dL (4-19) 03/13/25 10:03 03/13/25 Creatinine 0.91 mg/dL (0.70-1.20) 03/13/25 10:03 03/13/25 Glucose 97 mg/dL (70-99) 03/13/25 10:03 03/13/25 TSH 1.460 uIU/mL (0.358-3.740) 08/15/24 08:42 08/04 11/27 COAG Pre-Assessment Diagnosis/Proposed Procedure Planned Operative Procedure(s): Laparoscopic, Cholecystectomy with IOC Anesthesia History 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 When Was Last Pacemaker Check QUESTION #4 FULL TEXT: You/Your Family Experience fever (hyperthermia) with Anesthesia Last Oral Intake Last Oral intake: Last Oral Intake NPO since Meds taken in AM with sips of water? Meds patient instructed to take am of surgery PONV PONV - coach professional athletes: PONV - coach professional athletes Female Yes 03/09/25 10:35 HX of Motion Sickness No 03/09/25 10:35 HX of N/V After Surgery No 03/09/25 10:35 Non-Smoker Yes 03/09/25 10:35 Duration of Surgery greater Yes 03/09/25 10:35 than 60 minutes Number of Risk Factors 3 03/09/25 10:35 PONV Score Moderate Risk 03/09/25 10:35 Height & Weight Height & Weight: Anesthesia: Height & Weight Height 5 ft 9 in 03/15/25 07:12 Weight: 91.5 kg 03/15/25 07:12 Body Mass Index (BMI) 29.7 03/15/25 07:12 Respiratory Assessment Respiratory Assessment - coach professional athletes: Respiratory Tract Infection Hx - coach professional athletes Hx Respiratory Tract Infection No 03/09/25 10:35 STOP Sleep Apnea STOP Sleep Apnea - coach professional athletes: STOP Sleep Apnea - coach professional athletes Hx Hypertension No 03/09/25 10:35 Hx Sleep Apnea No 03/09/25 10:35 CPAP BIPAP Do you snore loudly (louder No 03/09/25 10:35 than talking or can be heard Do you often feel tired/ No 03/09/25 10:35 fatigued/ sleepy during daytime? Has anyone observed you stop No 03/09/25 10:35 breathing during sleep? STOP Results Negative 03/09/25 10:35 QUESTION #5 FULL TEXT : Do you snore loudly (louder than talking or can be heard through closed doors)? 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 Specify any problems Hx of Preganancy in last 3 No 03/09/25 10:35 Months Nurse Filling Out Transfusion MGRIFFITH 03/09/25 10:35 & Questions: Date: 03/09/25 03/09/25 10:35 Time: 10:37 03/09/25 10:35 Patient unable to answer at this time (ie. confused, unrespo /Reproduction History /Reproductive History - coach professional athletes: /Reproductive Hx- coach professional athletes Hx Now No 03/09/25 10:35 Gestational Age (in weeks): EDC: Hx Hx Para Hx Section SAB No 03/09/25 10:35 Active Medications Active Medications: Current Medications Generic Name Dose Route Start Last Admin Trade Name Freq PRN Reason Stop Dose Admin Indocyanine Green 3.75 mg/ N/A 1.5 mls @ 999 mls/hr 03/15/25 11:45 03/15/25 07:38 IV 03/15/25 11:46 999 mls/hr PREOP ONE Administration Lactated Ringer's 1,000 mls @ 15 mls/hr 03/15/25 07:00 03/15/25 07:18 IV 15 mls/hr .Q48H LONNIE Administration PFSH Medical History Anxiety History of IBS History of stress test RUQ abdominal pain Wears glasses History of steroid therapy Back pain Non-smoker Colitis Leg cramps History of pain when walking History of edema Acute diarrhea Neuropathy of right foot Peripheral neuropathy Erythromelalgia Scoliosis Asthma Degenerative disc disease Depression Home Medications ?Medication ?Instructions ?Recorded ?Last Taken ?Type multivitamin 1 tab PO DAILY 06/17/2203/04 History ascorbate calcium (vitamin C) 500 500 mg PO DAILY 09/0403/14/25 History mg tablet cholecalciferol (vitamin D3) 125 125 mcg PO DAILY 09/0403/14/25 History mcg (5,000 unit) tablet flaxseed oil 1,000 mg capsule 1,000 mg PO DAILY 03/14/25 History budesonide-formoterol HFA 160 2 puff inhalation .Q4-6 PRN 11/05/23 Unknown Rx mcg-4.5 mcg/actuation aerosol shortness of breath or w heezing inhaler (Symbicort) #10.2 grams estradiol 1 mg tablet (Estrace) 1 mg PO DAILY #90 tabs 12/05/24 03/14/25 Rx duloxetine 60 mg capsule,delayed 60 mg PO BID #60 caps 12/07/24 03/14/25 Rx release furosemide 20 mg tablet 20 mg PO BID #60 tabs 03/14/25 Rx lidocaine-prilocaine 2.5 %-2.5 % 1 g topical .QID PRN pain #60 grams 12/07/24 Unknown Rx topical cream baclofen 10 mg tablet 10 mg PO QDAY PRN muscle spa sm #30 01/16/25 Unknown Rx tabs dicyclomine 10 mg capsule 10 mg PO TID #30 caps Unknown Rx cetirizine 10 mg tablet (24Hour 10 mg PO DAILY PRN all ergy symptoms 03/09/25 03/14/25 History Allergy) meloxicam 7.5 mg tablet 7.5 mg PO DAILY PRN pain 03/2803/14/25 History naltrexone 8 mg-bupropion 90 mg 1 tab PO BID WT LOSS 0 03/09/25 03/12/25 History tablet,extended release (Contrave) potassium chloride 10 mEq 10 meq PO QHS 03/09/2503/14 History tablet,extended release Allergy/AdvReac Type Severity Reaction Status Date / Time Sulfa (Sulfonamide Allergy Mild rash Verified 03/15/25 07:10 Antibiotics) acetaminophen (From Vicodin) AdvReac Intermediate Other Verified 03/15/25 07:10 hydrocodone (From Vicodin) AdvReac Intermediate Other Verified 03/15/25 07:10 Family History Other Adopted Surgical History Hx of colonoscopy History of surgical procedure H/O tubal ligation S/P laparoscopic assisted vaginal hysterectomy (LAVH) delivery delivered Social History adopted: Yes household members: spouse current occupational status: employed current occupation: [employer] Smoking Status: Never smoker Electronic Cigarette Use: not used alcohol intake: current alcohol intake frequency: holidays/special occasions only details: social substance use type: does not use caffeine: Yes what type of physical activity do you participate in: none seatbelt use: always do you feel safe at home: Yes additional social history: [place]- Review of Systems (Anesthesia) ROS Narrative System reviewed and no additional complaints, except as documented.
--- NOTE | 2025-03-15 08:00 | GALL_PTH ---
PATIENT: MORENO VANESSA LOC: MS2 U#:[id number] AGE/SX: 59/F [place] [facility] [place]: Dr. Fernando Ontiveros MD : 1965 BED: 1 DIS: 03/16/2025 SPEC #: [id number] RECD: 03/15/25 11:00 STATUS: CONSUELO CHAKA #: [id number] NAGI: 03/15/25 08:[address]: Fernando Ontiveros DEPT: SURGICAL PATHOLOGY RECD BY: Juventino Dorsey ENTERED: 03/15/25 12:04 SP TYPE: BARBIE SILVA DR: MD Dr. Edgardo Tanner MD Tissues: A - Gallbladder, NOS Procedures: Surgery Specimen Level III HEADER OPERATION: Robotic cholecystectomy PRE-OP DIAGNOSIS: Right upper quadrant pain, gallstones TISSUE SUBMITTED: A- Gallbladder and contents MICROSCOPIC DIAGNOSIS A. Gallbladder and contents, cholecystectomy: * Cholelithiasis. MICROSCOPIC DESCRIPTION Slides are reviewed. GROSS DESCRIPTION A. Received in formalin labeled with the patient's name and date of . Designated as gallbladder and contents is a 5.0 x 3.8 x 1.1 cm stone-green, fatty and disrupted gallbladder with attached cystic duct (inked black, shaved). The mucosa is stone-green, focally granular and erythematous with a wall thickness of 0.1 cm. No cholesterolosis grossly identified. There is a 1.0 cm bile-stained crystalline cholelith. [employer] sections are submitted in 1 cassette. [facility] 03/15/2025 CPT:[id number]
[2025-03-15] MEDS: Bupiv/Epi 0.25% 30 ML Vial (09:15)
--- NOTE | 2025-03-15 09:33 | DCINST_ITS ---
Discharge Instructions Diet Discharge Diet: Light diet - advance as tolerated Activity Discharge Activity: May Shower May shower in (days): 1 Ice area for (Minutes): 30 Lifting Restrictions: No lifting pushing or pulling more than 20 pounds for 3 to 4 weeks Dressing / Incision Call your doctor if your incision/area has: Continuous Slow Oozing, Sudden Inc reased Bleeding, Increased Pain/ Swelling, Increased Redness, Foul Smelling Discharge and Swelling at the incision site Call your doctor if you observe: Fever of 101 or Higher Cleanse incision/area with: Soap & Water Follow Up Care Please Follow Up With: Fernando Ontiveros MD When: 2 weeks. Please call office to schedule appointment Test Results: Test results from this visit will be discussed in further detail at your follow- up appointment, if applicable. Discharge Plan Admission Primary Reason for Your Visit: Symptomatic cholelithiasis Attending Provider: Fernando Ontiveros Primary Care Provider: Aileen Zelaya Instructions Print Language: [place] Citizen Discharge Orders/Prescriptions Prescriptions: New oxycodone-acetaminophen [Percocet] 5-325 mg tablet 1 tab PO Q8H PRN (Reason: pain) 4 Days Qty: 10 0RF Continued multivitamin Tablet 1 tab PO DAILY flaxseed oil 1,000 mg capsule 1,000 mg PO DAILY Rx Instructions: administer with a meal cholecalciferol (vitamin D3) 125 mcg (5,000 unit) tablet 125 mcg PO DAILY ascorbate calcium (vitamin C) 500 mg tablet 500 mg PO DAILY budesonide-formoterol [Symbicort] 160-4.5 mcg/actuation HFA aerosol inhaler 2 puff inhalation .Q4-6 PRN (Reason: shortness of breath or wheezing) Qty: 10.2 1RF furosemide 20 mg tablet 20 mg PO BID Qty: 60 7RF duloxetine 60 mg capsule,delayed release(DR/EC) 60 mg PO BID Qty: 60 7RF lidocaine-prilocaine 2.5-2.5 % cream 1 g topical .QID PRN (Reason: pain) Qty: 60 7RF Rx Instructions: Dispense two 30 gm tubes per month. dicyclomine 10 mg capsule 10 mg PO TID Qty: 30 1RF cetirizine [24Hour Allergy] 10 mg tablet 10 mg PO DAILY PRN (Reason: allergy symptoms) potassium chloride 10 mEq tablet extended release 10 meq PO QHS meloxicam 7.5 mg tablet 7.5 mg PO DAILY PRN (Reason: pain) Contrave 8-90 mg tablet extended release 1 tab PO BID Patient Comments: LAST DOSE WILL BE 03/13/25 FOR SURGERY ON 03/16/25 estradiol [Estrace] 1 mg tablet 1 mg PO DAILY Qty: 90 3RF baclofen 10 mg tablet 10 mg PO QDAY PRN (Reason: muscle spasm) Qty: 30 1RF Rx Instructions: TAKE 1 TABLET BY MOUTH NEEDED FOR PAIN daily; Other Ambulatory Orders: 12 Lead EKG (Routine) Timeframe: 20250313 Location: None Selected Ordered By: Dr. Warner Mahoney Referrals / Follow Up: Aileen Zelaya MD [Primary Care Provider] - Disposition Disposition (needs filled in before D/C Order can be placed): Home, Self Care
--- NOTE | 2025-03-15 09:37 | OP.PCM_ITS ---
Procedures Digestive 40xxx-49xxx: [id number] Laparo cholecystectomy/graph Operative Report (Standard) Operative Information Date of Procedure: 03/15/25 Pre-Operative Diagnosis: Symptomatic cholelithiasis Post-Operative Diagnosis: Symptomatic cholelithiasis Surgery/Procedure Performed: Robotic cholecystectomy with ICG cholangiogram lead mobile developer: Yes Animal Pathology Teacher: Senia Sandoval Tasks completed by billing assistant: Closing, Trocar and Other Additional assignment desk assistant?: No Type of Anesthesia: General and Local RN Documented Start/Stop Times: Operation Date: 03/15/25 08:00 Case Time Into Pre-Op 03/15/25 06:48 Anesthesia Start 03/15/25 08:12 Into Room 03/15/25 08:12 Procedure Start 03/15/25 08:34 Procedure Start Time: 08:34 Procedure Stop Time: 09:38 Select all DRAINS/GRAFTS/IMPLANTS that apply: None Estimated Blood Loss: 5 mL Specimen collected: Yes Description of specimen(s) removed: Gallbladder Description of surgery: The patient is a 59-year-old female who was recently seen through the office with right upper quadrant pain. Ultrasound showed a large gallstone in the neck of the gallbladder. I offered her a robotic cholecystectomy as treatment. We discussed that he the planned surgery including risk benefits and alternatives. She wished to proceed. She was brought to the operative room today following informed consent. She was placed supine on the operative table with arms outstretched and arm boards. General anesthesia was induced. Once adequately sedated the abdomen is then prepped and draped in the usual sterile manner. a 5 mm incision was made just below the umbilicus. Through this a 5 mm trocar was placed optically. This was placed without incident. The abdomen is then fully insufflated with CO2 gas. A 5 mm 0 degree scope was inserted. There were no signs of bowel or vascular injury. Next an 8 mm trocar was placed on the right side of the abdomen along with another 8 mm trocar in the left side of the abdomen and then finally another 8 mm trocars placed in the left upper quadrant. All of these were placed without incident and under direct visualization. The original 5 mm trocar was switched to an 8 mm robotic trocar as well. The robot was then rolled into position and docked. Once in place the gallbladder was visualized in the right upper quadrant. The fundus of the gallbladder through reflected in a cephalad direction. There were some adhesions to the undersurface of the gallbladder which were taken down using electrocautery connected to an L-hook. Once these adhesions were taken down the infundibulum of the gallbladder was readily observed. The peritoneum on either side of the gallbladder was freed up using electrocautery. This created greater mobility of the gallbladder infundibulum. Cystic duct and cystic artery were then dissected out circumferentially. The lower third of the gallbladder was then removed from the undersurface of the gallbladder thus creating a critical view of safety such that 2 and only 2 structures were seen going to the gallbladder. The cystic duct and cystic artery were then clipped. Prior to clipping ICG cholangiogram was visualized and showed the cystic duct/common bile duct anatomy. We were clearly clipping the cystic duct. Both the duct and the artery were clipped and then transected using electrocautery and the hook. After this the gallbladder was then removed from the undersurface of the liver again using electrocautery. As the gallbladder was almost freed from the liver and opening on the gallbladder it developed from torsion on the grasper. At this point there was spillage of bile. This was promptly suctioned out and irrigated using a power suction inside account executive. The gallbladder was removed by placing it in a bag and bring it out through the left-sided trocar site. This did not require any stretching of the fascia. A total of 3 L of saline were then used to copiously irrigate the right upper quadrant. This was nice and clear at the completion of the procedure. Patient was flattened out and all additional irrigant fluid was suctioned out. The trocars were then removed thus allowing escape of insufflation. A total of 30 cc of local anesthetic were used and the incisions through the course of the operation. 4-0 Vicryl was then used to close the skin incisions. Skin glue was also applied as dressing. She was awakened from anesthesia and taken to recovery in good condition. Surgical Findings: See procedure note Complications Complications: No Admit VTE Documentation VTE Present on Admission: No VTE Mechan Device Prophylaxis: SCD's VTE Pharm Prophylaxis ordered?: No Reason prophylaxis not ordered: Treatment Not Indicated
--- NOTE | 2025-03-15 09:52 | SUR.PHASEI ---
AT 0952, STABLE VTACH IN 190'S ON MONITOR, SPO2 88% ON ROOM AIR, AWAKE AND ALERT, DENIES CHEST PAIN, DOES C/O ABDOMINAL PAIN, ONLY ARRIVED TO PACU AT 0948, WAS MEDICATED WITH 50 MCG FENTANYL ON PACU ARRIVAL BY DANIEL Mock CRNA. LIMA ARIAS CALLED. PLACED ON O2 10 L/MIN. PATIENT NEVER LOST CONSCIOUSNESS. SEE LIMA ARIAS DOCUMENTATION.
--- NOTE | 2025-03-15 10:07 | PCM.POST.ANE ---
Anesthesia: Postop Eval I Current Vital Signs Temperature: 97.4 F Pulse Rate: 109 Blood Pressure: 129/75 Respiratory Rate: 20 Pulse Ox: 95 Oxygen Delivery Method: Room Air Assessment Airway patent: Yes Spontaneous unlabored respirations: Yes Mental status: Awake and Calm nausea: No Vomiting: No Anesthesia Complication: No Fluid Hydration Crystalloid volume administer (ml): 1,500 Total IV fluid infused: 1,500 Progress Note Anesthesia document: Postop Eval 1 completed: Yes
[2025-03-15 10:49] LABS: Absolute Lymphocyte Count 0.81 X10^3/uL (0.83-4.51); Absolute Neutrophil Count 11.3 X10^3/uL (2.0-7.7); Basophil# 0.06 X10^3/uL; Basophil% 0.5 % (0-1); Eosinophil# 0.14 X10^3/uL; Eosinophils% 1.1 % (0-5); Hematocrit 38.2 % (37-47); Hemoglobin 12.7 g/dL (12.0-15.0); Lymphocyte # 0.81 X10^3/ul (0.83-4.51); Lymphocyte % 6.5 % (19-41); Mean Corp Hgb Conc 33.2 g/dL (32-36); Mean Corpuscular Hgb 31.4 pg (27.0-32.0); Mean Corpuscular Volume 94.6 fL (81-99); Monocyte# 0.22 X10^3/uL; Monocyte% 1.8 % (0-10); NRBC Flagged by Analyzer 0 % (0-5); Neutrophil # 11.26 X10^3/uL (2.7-7.7); Neutrophil % 89.7 % (47-70); Platelet Count 233 K/mm3 (150-450); RBC Distribution Width CV 12.3 % (11.6-14.6); RBC Distribution Width SD 43.4 fl (35.1-43.9); Red Blood Count 4.04 M/mm3 (4.2-5.4); White Blood Count 12.5 K/mm3 (4.4-11.0)
[2025-03-15 10:56] LABS: D-Dimer Quantitative (DVT/PE) 0.38 FEU/ug/m (0.27-0.49)
--- NOTE | 2025-03-15 11:00 | PCM.POSTANE2 ---
Anesthesia Postop Eval I Sum Postop Eval Completion status Anesthesia document: Postop Eval 1 completed: Yes Anesthesia Postop Eval I Summary Anesthesia Postop Eval I Summary: Anesthesia Postop Eval I: Assessment Summary Airway patent Yes 03/15/25 10:08 POULTRY [email or web address] [email or web address] Spontaneous unlabored Yes 03/15/25 10:08 POULTRY HUSBANDRY [email or web address] respirations Mental status Awake,Calm 03/15/25 10:08 POULTRY HUSBANDRY [email or web address] nausea No 03/15/25 10:08 POULTRY HUSBANDRY [email or web address] Vomiting No 03/15/25 10:08 POULTRY HUSBANDRY [email or web address] Anesthesia Postop Eval I: Fluid Summary Crystalloid volume administer 1,500 03/15/25 10:08 POULTRY HUSBANDRY [email or web address] (ml) Colloids volume administered ( ml) Blood Product volume administered (ml) Total IV fluid infused 1,500 03/15/25 10:08 POULTRY HUSBANDRY [email or web address] Anesthesia Postop Eval I: Summary Notes Anesthesia Complication No 03/15/25 10:08 POULTRY HUSBANDRY [email or web address] Anesthesia Complication Comment: Post-operative progress note Anesthesia: Postop Eval II Evaluation Mental status: Awake and Calm Pain Level: 2 nausea: No Vomiting: No Progress Note Post-operative progress note: Patient had episode of ventricular tach. This was after about 10 to 15 minutes on arrival to PACU. Patient remained responsive and had adequate blood pressure. However, since she remained in rhythm for over a couple minutes. It was decided to give patient adenosine which she had adequate response to. She was then taken to floor for observation. Hospitalist and surgeon aware of incidence of ventricular tach.
--- NOTE | 2025-03-15 11:17 | ECHOD_ITS ---
Reason For Study Reason For Study: SVT/VT Procedure This was a 2D Doppler, Color Flow transthoracic echocardiogram. The study was technically difficult. Exam performed portable in ICU/CCU. Left Ventricle Normal size and thickness. The LV systolic function is normal. EF is 60 %. Unable to assess diastolic function based on available data. Right Ventricle Normal right ventricle. Atria The left and right atria are normal. Bubble contrast study suboptimal however appears negative for ASD/PFO. Mitral Valve Trivial mitral valve insufficiency. Tricuspid Valve Mild tricuspid valve insufficiency. RVSP estimated between 31-41 mmHg. Aortic Valve Trisinus/trileaflet aortic valve. Mild focal aortic valve calcification. Pulmonic Valve The pulmonic valve is not well visualized. Great Vessels Normal sized aortic root. Pericardium/Pleural No pericardial effusion. Medication Performed a rapid injection of agitated mix of 9 cc saline and 1cc air to assess for atrial septal defect. MMode/2D Measurements & Calculations LVIDd: 5.5 cm IVSd: 0.88 cm Ao root diam: 3.3 cm LVIDs: 3.8 cm LVPWd: 0.96 cm RVDd: 2.5 cm FS: 31.4 % LAV(MOD-bp): 44.4 ml LVAd ap4: 26.3 cm2 SV(MOD-sp4): 50.4 ml LAV(MOD-bp) Indexed: 21.5 ml/m2 LVLd ap4: 7.1 cm SI(MOD-sp4): 24.4 ml/m2 LAV(MOD-sp2): 40.4 ml EDV(MOD-sp4): 78.6 ml LAV(MOD-sp4): 45.6 ml EDV(sp4-el): 82.2 ml LVAs ap4: 14.2 cm2 LVLs ap4: 6.0 cm ESV(MOD-sp4): 28.2 ml ESV(sp4-el): 28.6 ml EF(MOD-sp4): 64.1 % EF(sp4-el): 65.3 % SV(sp4-el): 53.7 ml LA A4 area: 16.1 cm2 LA dimension(2D): 3.8 cm RA A4 area: 9.8 cm2 TAPSE: 1.9 cm Doppler Measurements & Calculations Lat Peak E' Ean: 6.7 cm/sec Med Peak E' Ean: 9.6 cm/sec MV V2 max: 80.7 cm/sec MV max P.6 mmHg MV V2 mean: 36.5 cm/sec MV mean P.66 mmHg MV V2 VTI: 13.9 cm MV P1/2t max ean: 59.5 cm/sec Ao V2 max: 121.1 cm/sec LV V1 max: 103.5 cm/sec MV P1/2t: 42.8 msec Ao max P.9 mmHg LV V1 max P.3 mmHg Ao V2 mean: 82.2 cm/sec LV V1 mean P.1 mmHg MV dec slope: 407.7 cm/sec2 Ao mean P.9 mmHg LV V1 mean: 69.1 cm/sec MVA(P1/2t): 5.1 cm2 Ao V2 VTI: 24.4 cm LV V1 VTI: 19.3 cm AV (velocity ratio): 0.79 PA V2 max: 73.8 cm/sec TR max ean: 256.0 cm/sec PA V2 mean: 45.8 cm/sec TR max P.2 mmHg PA V2 VTI: 11.8 cm ECHO/Echo Complete Interpretation Summary The study was technically difficult. The LV systolic function is normal. EF is 60 %. Mild tricuspid valve insufficiency. RVSP estimated between 31-41 mmHg. Mild focal aortic valve calcification. Ordering Physician: Sidney Gregg Referring Physician: Fernando Ontiveros/Aileen Zelaya Performed By: Magi Gallagher, MAYRACS, RVT
[2025-03-15 11:19] LABS: ALB/GLOB Ratio 1.8 RATIO (0.9-2.4); AST(SGOT) 18 U/L (<=31); Alanine Aminotransfer ALT/SGPT 14 U/L (<=34); Albumin, Serum 3.8 g/dL (3.4-4.8); Alkaline Phosphatase 80 U/L (35-104); Anion Gap 8 (5-15); BUN 14 mg/dL (4-19); BUN/Creat Ratio 17.1 RATIO (10-20); Calcium,Total 8.3 mg/dL (7.6-11.0); Carbon Dioxide 25.9 mmol/L (21.0-32.0); Chloride 106 mmol/L (98-108); Creatinine, Serum 0.82 mg/dL (0.70-1.20); EST Glomerular Filtration Rate 81 (>60); Globulin 2.2 g/dL (2.2-4.2); Glucose 133 mg/dL (70-99); Potassium 4.4 mmol/L (3.3-5.1); Sodium Level 141 mmol/L (133-145); Total Bilirubin 0.25 mg/dL (0.00-1.30)
[2025-03-15 11:26] LABS: Troponin T High Sensitivity < 6 ng/L (<=14)
[2025-03-15 12:56] LABS: Troponin T High Sens 2 HR 8 ng/L (<=14)
[2025-03-15] MEDS: Acetaminophen 325 MG Tablet 650 MG PO ×2 (13:22→19:12)
[2025-03-15 15:23] LABS: Troponin T High Sens 4 HR 12 ng/L (<=14)
--- NOTE | 2025-03-15 16:37 | PCM.HP.STD ---
HPI - General General Date of Admission: 03/15/25 Date of Service: 03/15/25 Chief Complaint: RUQ pain HPI Narrative MORENO VANESSA, is a 59 F who presents for laparoscopic cholecystectomy. Patient underwent the procedure this morning and was doing well and then was cleaning abdominal pain. She was then noted to be in wide-complex tachycardia concerning for VT. Patient did not lose consciousness. A CODE BLUE was called and when I had arrived patient appeared to be in SVT. EKG confirmed SVT. Patient received 12 mg of adenosine and converted to normal sinus rhythm. Patient is otherwise feeling well other than the abdominal pain after surgery. Patient has never had any heart conditions in the past. [facility] Medical History Anxiety History of IBS History of stress test RUQ abdominal pain Wears glasses History of steroid therapy Back pain Non-smoker Colitis Leg cramps History of pain when walking History of edema Acute diarrhea Neuropathy of right foot Peripheral neuropathy Erythromelalgia Scoliosis Asthma Degenerative disc disease Depression Home Medications ?Medication ?Instructions ?Recorded ?Last Taken ?Type multivitamin 1 tab PO DAILY 06/17/22 03/14/25 History ascorbate calcium (vitamin C) 500 500 mg PO DAILY 09/24/22 03/14/25 History mg tablet cholecalciferol (vitamin D3) 125 125 mcg PO DAILY 09/24/22 03/14/25 History mcg (5,000 unit) tablet flaxseed oil 1,000 mg capsule 1,000 mg PO DAILY 09/24/22 03/14/25 History budesonide-formoterol HFA 160 2 puff inhalation .Q4-6 PRN 11/05/23 Unknown Rx mcg-4.5 mcg/actuation aerosol shortness of breath or wheezing inhaler (Symbicort) #10.2 grams estradiol 1 mg tablet (Estrace) 1 mg PO DAILY #90 tabs 12/05/24 03/14/25 Rx duloxetine 60 mg capsule,delayed 60 mg PO BID #60 caps 12/07/24 03/14/25 Rx release furosemide 20 mg tablet 20 mg PO BID #60 tabs 12/07/24 03/14/25 Rx lidocaine-prilocaine 2.5 %-2.5 % 1 g topical .QID PRN pain #60 grams 12/07/24 Unknown Rx topical cream baclofen 10 mg tablet 10 mg PO QDAY PRN muscle spasm #30 01/16/25 Unknown Rx tabs dicyclomine 10 mg capsule 10 mg PO TID #30 caps 03/07/25 Unknown Rx cetirizine 10 mg tablet (24Hour 10 mg PO DAILY PRN allergy symptoms 03/09/25 03/14/25 History Allergy) meloxicam 7.5 mg tablet 7.5 mg PO DAILY PRN pain 03/09/25 03/14/25 History naltrexone 8 mg-bupropion 90 mg 1 tab PO BID WT LOSS 03/09/25 03/12/25 History tablet,extended release (Contrave) potassium chloride 10 mEq 10 meq PO QHS 03/09/25 03/14/25 History tablet,extended release oxycodone-acetaminophen 5 mg-325 1 tab PO Q8H PRN pain 4 days #10 03/15/25 Unknown Rx mg tablet (Percocet) tabs Allergy/AdvReac Type Severity Reaction Status Date / Time Sulfa (Sulfonamide Allergy Mild rash Verified 03/15/25 07:10 Antibiotics) acetaminophen (From Vicodin) AdvReac Intermediate Other Verified 03/15/25 07:10 hydrocodone (From Vicodin) AdvReac Intermediate Other Verified 03/15/25 07:10 Family History Other Adopted Surgical History Hx of colonoscopy History of surgical procedure H/O tubal ligation S/P laparoscopic assisted vaginal hysterectomy (LAVH) delivery delivered Social History adopted: Yes household members: spouse current occupational status: employed current occupation: [employer] Smoking Status: Never smoker Electronic Cigarette Use: not used alcohol intake: current alcohol intake frequency: holidays/special occasions only details: social substance use type: does not use caffeine: Yes what type of physical activity do you participate in: none seatbelt use: always do you feel safe at home: Yes additional social history: Christin RUBIO Narrative Denies any history of VTE nor lower extremity edema. All review of systems were negative except as mentioned above in the history of present illness and the other review of systems. Vital Signs Vital Signs Vital Signs: 03/15/25 07:12 03/15/25 07:12 03/15/25 07:58 Temperature 36.7 C 36.7 C Temperature Source Temporal Pulse Rate 82 82 Pulse Rate [3] Respiratory Rate 16 16 Respiratory Pattern Normal Blood Pressure 118/60 118/60 Blood Pressure [3] Blood Pressure Mean 79 Blood Pressure Source Monitor Blood Pressure Position Supine Blood Pressure Location Left Arm Baseline BP Pulse Ox 97 97 Oxygen Delivery Method Room Air Oxygen Flow Rate (L/min) 03/15/25 09:48 03/15/25 09:50 03/15/25 09:53 Temperature 36.2 C L Temperature Source Temporal Pulse Rate 110 H 108 H Pulse Rate [3] 105 H Respiratory Rate 18 18 Respiratory Pattern Normal Blood Pressure 129/75 H 134/116 H 134/116 H Blood Pressure [3] 124/75 H Blood Pressure Mean 93 122 Blood Pressure Source Monitor Monitor Blood Pressure Position Right Lateral Right Lateral Blood Pressure Location Right Arm Right Arm Baseline BP 118/60 118/60 Pulse Ox 92 92 Oxygen Delivery Method Room Air Room Air Nasal Cannula Oxygen Flow Rate (L/min) 03/15/25 09:55 03/15/25 10:00 03/15/25 10:05 Temperature Temperature Source Pulse Rate 193 H 190 H 101 H Pulse Rate [3] Respiratory Rate 18 18 18 Respiratory Pattern Blood Pressure 96/63 124/75 H 118/68 Blood Pressure [3] Blood Pressure Mean 74 91 84 Blood Pressure Source Monitor Monitor Monitor Blood Pressure Position Supine Supine Supine Blood Pressure Location Right Arm Right Arm Right Arm Baseline BP 118/60 118/60 118/60 Pulse Ox 94 100 100 Oxygen Delivery Method Nasal Cannula Nasal Cannula Nasal Cannula Oxygen Flow Rate (L/min) 5 10 10 03/15/25 10:08 03/15/25 10:15 03/15/25 10:30 Temperature 36.3 C L Temperature Source Pulse Rate 109 H 97 95 Pulse Rate [3] Respiratory Rate 20 H 18 18 Respiratory Pattern Blood Pressure 129/75 H 104/63 109/62 Blood Pressure [3] Blood Pressure Mean 76 77 Blood Pressure Source Monitor Monitor Blood Pressure Position Supine Supine Blood Pressure Location Right Arm Right Arm Baseline BP 118/60 118/60 Pulse Ox 95 99 98 Oxygen Delivery Method Room Air Nasal Cannula Nasal Cannula Oxygen Flow Rate (L/min) 10 10 03/15/25 10:45 03/15/25 11:15 03/15/25 11:30 Temperature 36.7 C 36.8 C Temperature Source Temporal Temporal Pulse Rate 96 90 93 Pulse Rate [3] Respiratory Rate 16 14 19 H Respiratory Pattern Blood Pressure 107/68 114/67 83/63 L Blood Pressure [3] Blood Pressure Mean 81 82 69 Blood Pressure Source Monitor Monitor Monitor Blood Pressure Position Semi-Fowlers Semi-Fowlers Semi-Fowlers Blood Pressure Location Right Arm Right Arm Right Arm Baseline BP 118/60 Pulse Ox 97 96 98 Oxygen Delivery Method Nasal Cannula Nasal Cannula Nasal Cannula Oxygen Flow Rate (L/min) 4 4 4 03/15/25 11:45 03/15/25 12:00 03/15/25 13:00 Temperature Temperature Source Pulse Rate 90 88 78 Pulse Rate [3] Respiratory Rate 16 15 13 Respiratory Pattern Blood Pressure 104/61 110/59 L 107/66 Blood Pressure [3] Blood Pressure Mean 75 76 79 Blood Pressure Source Monitor Monitor Monitor Blood Pressure Position Semi-Fowlers Semi-Fowlers Semi-Fowlers Blood Pressure Location Right Arm Right Arm Right Arm Baseline BP Pulse Ox 97 97 94 Oxygen Delivery Method Nasal Cannula Nasal Cannula Room Air Oxygen Flow Rate (L/min) 4 4 03/15/25 14:00 03/15/25 15:00 Temperature Temperature Source Pulse Rate 85 80 Pulse Rate [3] Respiratory Rate 16 18 Respiratory Pattern Blood Pressure 108/64 115/75 Blood Pressure [3] Blood Pressure Mean 78 88 Blood Pressure Source Monitor Monitor Blood Pressure Position Semi-Fowlers Semi-Fowlers Blood Pressure Location Right Arm Right Arm Baseline BP Pulse Ox 93 Oxygen Delivery Method Room Air Room Air Oxygen Flow Rate (L/min) Weight Weight: 90.265 kg Body Mass Index (BMI) 29.3 Physical Exam Const alert, no apparent distress and average body habitus General Appearance: cooperative HEENT normocephalic and head/scalp atraumatic Neck no lymphadenopathy Resp normal respiratory effort, no retractions, no use of accessory muscles and clear to auscultation bilaterally Cardio regular rate, regular rhythm, S1 normal heart sound and S2 normal heart sound GI normal to inspection, nondistended, normoactive bowel sounds and soft to palpation GI Narrative: Slightly distended. Minimal tenderness. Auscultation: hypoactive bowel sounds Extremity normal to inspection and full ROM Neuro oriented x3, CN's II-XII intact bilaterally, moves all extremities and no focal motor deficits Sensorium / Orientation: awake, alert, oriented to person, oriented to place and oriented to time Speech: speech normal Psych affect normal Results Lab / Micro Data Attestation: I reviewed the patient's lab results. 03/15/25 10:25 03/15/25 10:25 Labs: Laboratory Results - last 24 hr 03/15/25 10:25: WBC 12.5 H, RBC 4.04 L, Hgb 12.7, Hct 38.2, MCV 94.6, MCH 31.4, MCHC 33.2, RDW Std Deviation 43.4, RDW Coeff of Jemal 12.3, Plt Count 233, MPV 9.0, Immature Gran % (Auto) 0.400, Neut % (Auto) 89.7 H, Lymph % (Auto) 6.5 L, Hardin % (Auto) 1.8, Eos % (Auto) 1.1, Baso % (Auto) 0.5, Absolute Neuts (auto) 11.3 H, Absolute Lymphs (auto) 0.81 L, Nucleated RBC % 0, D-Dimer Quant (PE/DVT) 0.38, Sodium 141, Potassium 4.4, Chloride 106, Carbon Dioxide 25.9, Anion Gap 8, BUN 14, Creatinine 0.82, Estim Creat Clear Calc 86.80, Est GFR (MDRD) Non-Af 81, BUN/Creatinine Ratio 17.1, Glucose 133 H, Calcium 8.3, Total Bilirubin 0.25, AST 18, ALT 14, Alkaline Phosphatase 80, Troponin T High Sens < 6, Total Protein 6.0, Albumin 3.8, Globulin 2.2, Albumin/Globulin Ratio 1.8 03/15/25 12:15: Troponin T Hi Sens 2 Hr 8 03/15/25 14:15: Troponin T Hi Sens 4Hr 12 Imaging Radiology Impression Echocardiogram 03/15/25 11:17 Interpretation Summary The study was technically difficult. The LV systolic function is normal. EF is 60 %. Mild tricuspid valve insufficiency. RVSP estimated between 31-41 mmHg. Mild focal aortic valve calcification. Ordering Physician: Sidney Gregg Referring Physician: Fernando Ontiveros/Aileen Zelaya Performed By: Magi Gallagher, ESTEE, RVT Assessment & Plan Assessment/Plan (1) Tachycardia: PLAN: Began SVT and it was noted on telemetry strips. Then was in SVT and it was noted on telemetry as well as an EKG. Did receive adenosine 12 mg and has since been in normal sinus rhythm. I ordered the adenosine given in the PACU I ordered EKG and reviewed the pre and post adenosine EKG. Pre-EKG showed SVT as well as post showed sinus tachycardia. I have ordered troponins, echocardiogram, D-dimer and personally reviewed these tests.: Troponin series were negative. 2D echocardiogram showed EF of 60% with mild tricuspid valve insufficiency, RVSP of 3141 mmHg. Mild focal aortic valve calcification. D-dimer is negative so no PE and no CTA needed at this time. I spoke with Dr. Lacy of cardiology and he is on consultation for further input. It was reported the patient has had tachycardia palpitation type symptoms in the past. Unclear if that is at all what were dealing with in the PACU or if that something else. Will continue to monitor patient on telemetry. (2) S/P laparoscopic cholecystectomy: PLAN: Discussed with Dr. Ontiveros, should be on clears. Pain medication PLAN: Plan VTE prophylaxis with SCDs. Initially admitted to the intensive care unit for close monitoring but patient has remained stable. Will de-escalate the patient to PCU status. Charges/Coding Visit Charges Inpatient E&M: 36871 Init Hosp L3
--- NOTE | 2025-03-15 17:55 | CON.PCM.CA_ITS ---
Assessment & Plan Assessment/Plan (1) Tachycardia: PLAN: The patient's wide-complex tachycardia appears to be SVT with a Lewis C. It was called on rhythm strip initiated by PAC in the same cycle length converted into a narrow complex tachycardia with exactly the same cycle length. This is consistent with SVT with a Lewis C that then narrows up to a normal conduction. This broke with adenosine which also supports a diagnosis of SVT. The patient has no significant structural heart disease at all. I would recommend that we treat her with low-dose metoprolol succinate 25 mg daily and I went over the utilization of Valsalva and other vagal tonic maneuvers. The patient should follow-up in the office in 4 to 6 weeks with one of our advanced practitioners Georgette Keating. PLAN: Plan 1. Will add metoprolol succinate 25 mg daily. 2. Follow-up with the [facility] with Georgette Keating in 4 to 6 weeks. 3. As long the patient remains asymptomatic and free of any significant arrhythmias she should be able to be discharged in the morning. HPI Consult Data Date of Consult: 03/15/25 HPI Narrative Reason for Consultation: Wide-complex tachycardia in the PACU following lap rachel HPI Narrative: MORENO VANESSA, is a 59 F who presents in the PACU following lap cholecystectomy with a wide-complex tachycardia. In viewing the onset of the arrhythmia and the termination it appears the rhythm started with a PAC with an apparent conduction and went into a notable tachycardia that then narrowed up with a normal conduction in the narrow complex tachycardia. This was subsequently converted with adenosine to sinus rhythm. This does not appear to be ventricular tachycardia. The patient never lost consciousness and was aware of the whole time what was going on with the arrhythmia. The patient has no structural heart disease her echo done today showed a normal ejection fraction of 60% she had normal atrial sizes no significant valvular heart disease at all and a negative bubble study for PFO. She also has no significant risk factors for coronary artery disease. She is not hypertensive, her lipids are not elevated by her report and her HDL is high, she has never smoked, she is not diabetic. She is adopted and does not know her family history. The patient's had no recurrence of any wide-complex tachycardia since her admission. She denies any prior history of palpitations tachycardias or any type of cardiac history. She denies any syncope or near syncope. FOR[facility], [facility] Medical History Anxiety History of IBS History of stress test RUQ abdominal pain Wears glasses History of steroid therapy Back pain Non-smoker Colitis Leg cramps History of pain when walking History of edema Acute diarrhea Neuropathy of right foot Peripheral neuropathy Erythromelalgia Scoliosis Asthma Degenerative disc disease Depression Home Medications ?Medication ?Instructions ?Recorded ?Last Taken ?Type multivitamin 1 tab PO DAILY 06/17/2203/04 History ascorbate calcium (vitamin C) 500 500 mg PO DAILY 09/0403/14/25 History mg tablet cholecalciferol (vitamin D3) 125 125 mcg PO DAILY 09/0403/14/25 History mcg (5,000 unit) tablet flaxseed oil 1,000 mg capsule 1,000 mg PO DAILY 03/14/25 History budesonide-formoterol HFA 160 2 puff inhalation .Q4-6 PRN 11/05/23 Unknown Rx mcg-4.5 mcg/actuation aerosol shortness of breath or w heezing inhaler (Symbicort) #10.2 grams estradiol 1 mg tablet (Estrace) 1 mg PO DAILY #90 tabs 12/05/24 03/14/25 Rx duloxetine 60 mg capsule,delayed 60 mg PO BID #60 caps 12/07/24 03/14/25 Rx release furosemide 20 mg tablet 20 mg PO BID #60 tabs 03/14/25 Rx lidocaine-prilocaine 2.5 %-2.5 % 1 g topical .QID PRN pain #60 grams 12/07/24 Unknown Rx topical cream baclofen 10 mg tablet 10 mg PO QDAY PRN muscle spa sm #30 01/16/25 Unknown Rx tabs dicyclomine 10 mg capsule 10 mg PO TID #30 caps Unknown Rx cetirizine 10 mg tablet (24Hour 10 mg PO DAILY PRN all ergy symptoms 03/09/25 03/14/25 History Allergy) meloxicam 7.5 mg tablet 7.5 mg PO DAILY PRN pain 03/2803/14/25 History naltrexone 8 mg-bupropion 90 mg 1 tab PO BID WT LOSS 0 03/09/25 03/12/25 History tablet,extended release (Contrave) potassium chloride 10 mEq 10 meq PO QHS 03/09/2503/14 History tablet,extended release oxycodone-acetaminophen 5 mg-325 1 tab PO Q8H PRN pain 4 days #10 03/15/25 Unknown Rx mg tablet (Percocet) tabs Allergy/AdvReac Type Severity Reaction Status Date / Time Sulfa (Sulfonamide Allergy Mild rash Verified 03/15/25 07:10 Antibiotics) acetaminophen (From Vicodin) AdvReac Intermediate Other Verified 03/15/25 07:10 hydrocodone (From Vicodin) AdvReac Intermediate Other Verified 03/15/25 07:10 Family History Other Adopted Surgical History Hx of colonoscopy History of surgical procedure H/O tubal ligation S/P laparoscopic assisted vaginal hysterectomy (LAVH) delivery delivered Social History adopted: Yes household members: spouse current occupational status: employed current occupation: [employer] Smoking Status: Never smoker Electronic Cigarette Use: not used alcohol intake: current alcohol intake frequency: holidays/special occasions only details: social substance use type: does not use caffeine: Yes what type of physical activity do you participate in: none seatbelt use: always do you feel safe at home: Yes additional social history: Christin RUBIO Constitutional Constitutional: Reports as per HPI Eyes Eyes: Reports systems reviewed and no addt'l complaints, except as documented ENT HEENT: Reports systems reviewed and no addt'l complaints, except as documented Cardiovascular Cardiovascular: Reports as per HPI Respiratory/Chest Respiratory/Chest: Reports as per HPI Gastrointestinal Gastrointestinal: Reports as per HPI Genitourinary Genitourinary: Reports systems reviewed and no addt'l complaints, except as documented Musculoskeletal Musculoskeletal: Reports systems reviewed and no addt'l complaints, except as documented Integumentary Integumentary: Reports systems reviewed and no addt'l complaints, except as documented Neurologic Neurologic: Reports systems reviewed and no addt'l complaints, except as documented Psychiatric Psychiatric: Reports systems reviewed and no addt'l complaints, except as documented Endocrine Endocrinology: Reports systems reviewed and no addt'l complaints, except as documented Hematologic/Lymphatic Hematologic/Lymphatic: Reports systems reviewed and no addt'l complaints, except as documented Allergic/Immunologic Allergic/Immunologic: Reports systems reviewed and no addt'l complaints, except as documented Physical Exam Const alert and oriented x3 HEENT normocephalic Eyes EOMs intact bilaterally Neck no JVD and no carotid bruits Chest inspection of chest normal Resp normal respiratory effort and clear to auscultation bilaterally Cardio Rate: regular rate Rhythm: regular rhythm Heart Sounds: S1 normal and S2 normal; Negative for click, gallop or murmur GI soft to palpation Extremity no pedal edema Psych mental status grossly normal Risk Stratification Risk Stratification Applicable: No Charges/Coding Visit Charges Inpatient E&M: 76140 Init Hosp L2 Objective Data Vital Signs: Vital Signs Temp Pulse Resp BP Pulse Ox O2 Del Method O2 Flow Rate 98.3 F 94 18 111/73 96 Room Air 4 03/15/25 11:15 03/15/25 16:00 03/15/25 16:00 03/15/25 16:00 03/15/25 16:00 03/15/25 16:00 03/15/25 14:00 Oxygen Flow Rate (L/min) 4 Oxygen Delivery Method Room Air Weight: 199 lb Body Mass Index (BMI) 29.3 Intake & Output: Intake and Output for Last 24 Hours 03/13/25 03/14/25 03/15/25 23:59 23:59 23:59 Intake Total 1061.75 / 1061.75 Output Total 5 / 5 Balance 1056.75 / 1056.75 Lab / Micro Data Attestation: I reviewed the patient's lab results. 03/15/25 10:25 03/15/25 10:25 Labs: Laboratory Results - last 24 hr 03/15/25 10:25: WBC 12.5 H, RBC 4.04 L, Hgb 12.7, Hct 38.2, MCV 94.6, MCH 31.4, MCHC 33.2, RDW Std Deviation 43.4, RDW Coeff of Jemal 12.3, Plt Count 233, MPV 9.0, Immature Gran % (Auto) 0.400, Neut % (Auto) 89.7 H, Lymph % (Auto) 6.5 L, [place] % (Auto) 1.8, Eos % (Auto) 1.1, Baso % (Auto) 0.5, Absolute Neuts (auto) 11.3 H, Absolute Lymphs (auto) 0.81 L, Nucleated RBC % 0, D-Dimer Quant (PE/DVT) 0.38, Sodium 141, Potassium 4.4, Chloride 106, Carbon Dioxide 25.9, Anion Gap 8, BUN 14, Creatinine 0.82, Estim Creat Clear Calc 86.80, Est GFR (MDRD) Non-Af 81, BUN/Creatinine Ratio 17.1, Glucose 133 H, Calcium 8.3, Total Bilirubin 0.25, AST 18, ALT 14, Alkaline Phosphatase 80, Troponin T High Sens < 6, Total Protein 6.0, Albumin 3.8, Globulin 2.2, Albumin/Globulin Ratio 1.8 03/15/25 12:15: Troponin T Hi Sens 2 Hr 8 03/15/25 14:15: Troponin T Hi Sens 4Hr 12 Rhythm Strip Rhythm Strip: Sinus Rhythm Rate: 93 Ectopy: None Cardiology Labs/Tests 03/15/25 10:25: WBC 12.5 H, RBC 4.04 L, Hgb 12.7, Hct 38.2, MCV 94.6, MCH 31.4, MCHC 33.2, Plt Count 233, MPV 9.0, Immature Gran % (Auto) 0.400, Neut % (Auto) 89.7 H, Lymph % (Auto) 6.5 L, [place] % (Auto) 1.8, Eos % (Auto) 1.1, Baso % (Auto) 0.5, Absolute Neuts (auto) 11.3 H, Nucleated RBC % 0, D-Dimer Quant (PE/DVT) 0.38, Sodium 141, Potassium 4.4, Chloride 106, Carbon Dioxide 25.9, Anion Gap 8, BUN 14, Creatinine 0.82, Est GFR (MDRD) Non-Af 81, BUN/Creatinine Ratio 17.1, G lucose 133 H, Calcium 8.3, Total Bilirubin 0.25 Rhythm: EKG: ECHO: Stress Test: Cardiac Cath: PCI: CT Surgery: Holter monitor: EPS: PPM: CXR: Chest CT Scan: Radiography Diagnostic Testing: Radiology Impression Echocardiogram 03/15/25 11:17 Interpretation Summary The study was technically difficult. The LV systolic function is normal. EF is 60 %. Mild tricuspid valve insufficiency. RVSP estimated between 31-41 mmHg. Mild focal aortic valve calcification. Ordering Physician: Sidney Gregg Referring Physician: Fernando Ontiveros/Aileen Zelaya Performed By: Magi Gallagher, ESTEE, RVT
[2025-03-15] MEDS: oxyCODONE 5 MG Tablet PO ×2 (19:12→23:18)
[2025-03-15] MEDS: Dicyclomine 10 MG Capsule PO (21:19)
[2025-03-15] MEDS: DULoxetine Hcl 60 MG Capsule PO (21:19)
[2025-03-15] MEDS: Metoprolol(XL)Succ 25 MG Tablet PO (21:29)
[2025-03-16 03:15] VITALS: BP 91/61; PULSE 63; RESP 13; TEMP 36.3; O2SAT 95
[2025-03-16] MEDS: Dicyclomine 10 MG Capsule PO (05:52)
[2025-03-16 06:00] VITALS: BMI 30.8
--- NOTE | 2025-03-16 06:49 | PN.HOSP_ITS ---
Reason for Visit Reason for Visit: Diagnoses Tachycardia, unspecified (03/15/25) Right upper quadrant pain (03/15/25) Encounter for other preprocedural examination (03/15/25) Acquired absence of other specified parts of digestive tract (03/15/25) Subjective Subjective Feeling well. No events overnight. Objective Data Objective Data Vital Signs: Vital Signs Temp Pulse Resp BP Pulse Ox O2 Del Method O2 Flow Rate 36.3 C L 63 13 91/61 95 Room Air 4 03/16/25 03:15 03/16/25 03:15 03/16/25 03:15 03/16/25 03:15 03/16/25 03:15 03/16/25 03:15 03/15/25 14:00 Oxygen Flow Rate (L/min) 4 Oxygen Delivery Method Room Air Weight: 90.265 kg Body Mass Index (BMI) 29.3 Intake & Output: Intake and Output for Last 24 Hours 03/14/25 03/15/25 03/16/25 23:59 23:59 23:59 Intake Total 1061.75 / 1061.75 Output Total 5 / Balance 1056.75 / 1056.75 Lab / Micro Data 03/15/25 10:25 03/16/25 06:12 Labs: Laboratory Results - last 24 hr 03/15/25 10:25: WBC 12.5 H, RBC 4.04 L, Hgb 12.7, Hct 38.2, MCV 94.6, MCH 31.4, MCHC 33.2, RDW Std Deviation 43.4, RDW Coeff of Jemal 12.3, Plt Count 233, MPV 9.0, Immature Gran % (Auto) 0.400, Neut % (Auto) 89.7 H, Lymph % (Auto) 6.5 L, [place] % (Auto) 1.8, Eos % (Auto) 1.1, Baso % (Auto) 0.5, Absolute Neuts (auto) 11.3 H, Absolute Lymphs (auto) 0.81 L, Nucleated RBC % 0, D-Dimer Quant (PE/DVT) 0.38, Sodium 141, Potassium 4.4, Chloride 106, Carbon Dioxide 25.9, Anion Gap 8, BUN 14, Creatinine 0.82, Estim Creat Clear Calc 86.80, Est GFR (MDRD) Non-Af 81, BUN/Creatinine Ratio 17.1, Glucose 133 H, Calcium 8.3, Total Bilirubin 0.25, AST 18, ALT 14, Alkaline Phosphatase 80, Troponin T High Sens < 6, Total Protein 6.0, Albumin 3.8, Globulin 2.2, Albumin/Globulin Ratio 1.8 03/15/25 12:15: Troponin T Hi Sens 2 Hr 8 03/15/25 14:15: Troponin T Hi Sens 4Hr 12 Radiography Diagnostic Testing: Radiology Impression Echocardiogram 03/15/25 11:17 Interpretation Summary The study was technically difficult. The LV systolic function is normal. EF is 60 %. Mild tricuspid valve insufficiency. RVSP estimated between 31-41 mmHg. Mild focal aortic valve calcification. Ordering Physician: Sidney Gregg Referring Physician: Fernando Ontiveros/Aileen Zelaya Performed By: Magi Gallagher, MAYRACS, RVT Rhythm Strip Rhythm Strip: Sinus Rhythm Rate: 93 Ectopy: None Physical Exam Const alert and no apparent distress HEENT head/scalp atraumatic and moist oral mucous membranes Resp normal respiratory effort, no retractions, no use of accessory muscles and clear to auscultation bilaterally Cardio regular rate, regular rhythm, S1 normal heart sound and S2 normal heart sound GI normal to inspection, nondistended, normoactive bowel sounds, soft to palpation, non-tender and non-distended Extremity normal to inspection and full ROM Neuro Sensorium / Orientation: awake and alert Assessment & Plan Assessment/Plan (1) Tachycardia: PLAN: Began SVT and it was noted on telemetry strips. Then was in SVT and it was noted on telemetry as well as an EKG. Did receive adenosine 12 mg and has since been in normal sinus rhythm. I ordered the adenosine given in the PACU I ordered EKG and reviewed the pre and post adenosine EKG. Pre-EKG showed SVT as well as post showed sinus tachycardia. I have ordered troponins, echocardiogram, D-dimer and personally reviewed these tests.: Troponin series were negative. 2D echocardiogram showed EF of 60% with mild tricuspid valve insufficiency, RVSP of 3141 mmHg. Mild focal aortic valve calcification. D-dimer is negative so no PE and no CTA needed at this time. I spoke with Dr. Lacy of cardiology and he is on consultation for further input. It was reported the patient has had tachycardia palpitation type symptoms in the past. Unclear if that is at all what were dealing with in the PACU or if that something else. Will continue to monitor patient on telemetry. Seen by cardiology. Donaldson it was SVT for the duration--the wide-complex tachycardia was SVT with aberrancy. Started on metoprolol succinate 25/d (2) S/P laparoscopic cholecystectomy: PLAN: Discussed with svitlana Renteria for home. Pain medication PLAN: Plan VTE prophylaxis with SCDs. Initially admitted to the intensive care unit for close monitoring but patient has remained stable. Will de-escalate the patient to PCU status.
[2025-03-16 07:21] LABS: Anion Gap 8 (5-15); BUN 13 mg/dL (4-19); BUN/Creat Ratio 18.1 RATIO (10-20); Calcium,Total 8.5 mg/dL (7.6-11.0); Carbon Dioxide 25.8 mmol/L (21.0-32.0); Chloride 107 mmol/L (98-108); Creatinine, Serum 0.72 mg/dL (0.70-1.20); EST Glomerular Filtration Rate 95 (>60); Estimated Creatinine Clearance 100.36 ml/min (50-250); Glucose 113 mg/dL (70-99); Magnesium 2.3 mg/dL (1.5-2.2); Potassium 3.9 mmol/L (3.3-5.1); Sodium Level 140 mmol/L (133-145); Thyroid Stim Hormone (TSH) 0.797 uIU/mL (0.300-4.200)
[2025-03-16 08:26] VITALS: BP 108/68; PULSE 60; RESP 16; TEMP 36.8; O2SAT 98
--- NOTE | 2025-03-16 09:27 | PN.SURG_ITS ---
Subjective Subjective Patient seen evaluated on rounds this morning. She denies any issues or problems. She states that her incisional pain is well-controlled and actually quite minimal. In speaking with nursing staff this morning, it sounds as though she has had no further rhythm issues. She has been tolerating diet. Objective Data Objective Data Vital Signs: Vital Signs Temp Pulse Resp BP Pulse Ox O2 Del Method O2 Flow Rate 98.3 F 60 16 108/68 98 Room Air 4 03/16/25 08:26 03/16/25 08:26 03/16/25 08:26 03/16/25 08:26 03/16/25 08:26 03/16/25 09:01 03/15/25 14:00 Oxygen Flow Rate (L/min) 4 Oxygen Delivery Method Room Air Weight: 208 lb 1.862 oz Body Mass Index (BMI) 30.8 Intake & Output: Intake and Output for Last 24 Hours 03/14/25 03/15/25 03/16/25 23:59 23:59 23:59 Intake Total 1061.75 / 1061.75 Output Total 5 / 5 Balance 1056.75 / 1056.75 Lab / Micro Data 03/15/25 10:25 03/16/25 06:12 Labs: Laboratory Results - last 24 hr 03/15/25 10:25: WBC 12.5 H, RBC 4.04 L, Hgb 12.7, Hct 38.2, MCV 94.6, MCH 31.4, MCHC 33.2, RDW Std Deviation 43.4, RDW Coeff of Jemal 12.3, Plt Count 233, MPV 9.0, Immature Gran % (Auto) 0.400, Neut % (Auto) 89.7 H, Lymph % (Auto) 6.5 L, [place] % (Auto) 1.8, Eos % (Auto) 1.1, Baso % (Auto) 0.5, Absolute Neuts (auto) 11.3 H, Absolute Lymphs (auto) 0.81 L, Nucleated RBC % 0, D-Dimer Quant (PE/DVT) 0.38, Sodium 141, Potassium 4.4, Chloride 106, Carbon Dioxide 25.9, Anion Gap 8, BUN 14, Creatinine 0.82, Estim Creat Clear Calc 86.80, Est GFR (MDRD) Non-Af 81, BUN/Creatinine Ratio 17.1, Glucose 133 H, Calcium 8.3, Total Bilirubin 0.25, AST 18, ALT 14, Alkaline Phosphatase 80, Troponin T High Sens < 6, Total Protein 6.0, Albumin 3.8, Globulin 2.2, Albumin/Globulin Ratio 1.8 03/15/25 12:15: Troponin T Hi Sens 2 Hr 8 03/15/25 14:15: Troponin T Hi Sens 4Hr 12 03/16/25 06:12: Sodium 140, Potassium 3.9, Chloride 107, Carbon Dioxide 25.8, Anion Gap 8, BUN 13, Creatinine 0.72, Estim Creat Clear Calc 100.36, Est GFR (MDRD) Non-Af 95, BUN/Creatinine Ratio 18.1, Glucose 113 H, Calcium 8.5, M agnesium 2.3 H, TSH 0.797 Radiography Diagnostic Testing: Radiology Impression Echocardiogram 03/15/25 11:17 Interpretation Summary The study was technically difficult. The LV systolic function is normal. EF is 60 %. Mild tricuspid valve insufficiency. RVSP estimated between 31-41 mmHg. Mild focal aortic valve calcification. Ordering Physician: Sidney Gregg Referring Physician: Fernando Ontiveros/Aileen Zelaya Performed By: Magi Gallagher, ESTEE, RVT Rhythm Strip Rhythm Strip: Sinus Rhythm Rate: 93 Ectopy: None Physical Exam Narrative She is alert and oriented x 3. She is in no acute distress. Assessment & Plan Assessment/Plan (1) S/P laparoscopic cholecystectomy: PLAN: Plan The patient is a 59-year-old female who underwent an unremarkable robotic cholecystectomy yesterday however in recovery she developed SVT. This converted with adenosine administration. Patient was seen by cardiology and they are recommending beta-kalli on discharge and outpatient workup. She is doing well from a surgical standpoint and should be okay for discharge home once medically cleared. She can follow-up with me in about 2 weeks as an outpatient. She may certainly call sooner if any issues or problems arise. Continue diet as tolerated
[2025-03-16 09:38] VITALS: BP 108/68; PULSE 60
[2025-03-16] MEDS: DULoxetine Hcl 60 MG Capsule PO (09:38)
[2025-03-16] MEDS: Cholecalciferol (Vit D3) 125 MCG CAPSULE (5,000 UNITS) PO (09:38)
[2025-03-16] MEDS: Metoprolol(XL)Succ 25 MG Tablet PO (09:38)
--- NOTE | 2025-03-16 10:17 | PCM.DC.SUM ---
Providers Date of Admission: 03/15/25 Primary Care Physician: Dr. Aileen Zelaya MD Consultations 03/15/25 11:17 Consult: Cardiology Routine Consulting Provider: Edgardo Lacy Reason for Consult: SVT EMERGENT Consult: No Notified: Yes Date Notified: 03/15/25 Time Notified: 10:39 Method of Notification: Verbal Consult: General Surgery Routine Consulting Provider: Fernando Ontiveros Reason for Consult: s/p lap rachel EMERGENT Consult: No Notified: Yes Date Notified: 03/15/25 Time Notified: 10:39 Method of Notification: Verbal Reason For Visit: SVT,VT Diagnosis Discharge Diagnosis (1) Tachycardia: Status: Acute Code(s): R00.0 - Tachycardia, unspecified Plan: Began SVT and it was noted on telemetry strips. Then was in SVT and it was noted on telemetry as well as an EKG. Did receive adenosine 12 mg and has since been in normal sinus rhythm. I ordered the adenosine given in the PACU I ordered EKG and reviewed the pre and post adenosine EKG. Pre-EKG showed SVT as well as post showed sinus tachycardia. I have ordered troponins, echocardiogram, D-dimer and personally reviewed these tests.: Troponin series were negative. 2D echocardiogram showed EF of 60% with mild tricuspid valve insufficiency, RVSP of 3141 mmHg. Mild focal aortic valve calcification. D-dimer is negative so no PE and no CTA needed at this time. I spoke with Dr. Lacy of cardiology and he is on consultation for further input. It was reported the patient has had tachycardia palpitation type symptoms in the past. Unclear if that is at all what were dealing with in the PACU or if that something else. Will continue to monitor patient on telemetry. Seen by cardiology. Lincoln it was SVT for the duration--the wide-complex tachycardia was SVT with aberrancy. Started on metoprolol succinate 25/d (2) S/P laparoscopic cholecystectomy: Status: Acute Code(s): Z90.49 - Acquired absence of other specified parts of digestive tract Plan: Discussed with svitlana Renteria for home. Pain medication Plan VTE prophylaxis with SCDs. Initially admitted to the intensive care unit for close monitoring but patient has remained stable. Will de-escalate the patient to PCU status. Medications at Discharge Home Medications multivitamin 1 tab PO DAILY 06/17/22 ascorbate calcium (vitamin C) 500 mg tablet 500 mg PO DAILY 09/24/22 cholecalciferol (vitamin D3) 125 mcg (5,000 unit) tablet 125 mcg PO DAILY 09/24/22 flaxseed oil 1,000 mg capsule 1,000 mg PO DAILY 09/24/22 budesonide-formoterol HFA 160 mcg-4.5 mcg/actuation aerosol inhaler (Symbicort) 2 puff inhalation .Q4-6 PRN shortness of breath or wheezing #10.2 grams 11/05/23 estradiol 1 mg tablet (Estrace) 1 mg PO DAILY #90 tabs 12/05/24 duloxetine 60 mg capsule,delayed release 60 mg PO BID #60 caps 12/07/24 furosemide 20 mg tablet 20 mg PO BID #60 tabs 12/07/24 lidocaine-prilocaine 2.5 %-2.5 % topical cream 1 g topical .QID PRN pain #60 grams 12/07/24 baclofen 10 mg tablet 10 mg PO QDAY PRN muscle spasm #30 tabs 01/16/25 dicyclomine 10 mg capsule 10 mg PO TID #30 caps 03/07/25 cetirizine 10 mg tablet (24Hour Allergy) 10 mg PO DAILY PRN allergy symptoms 03/09/25 meloxicam 7.5 mg tablet 7.5 mg PO DAILY PRN pain 03/09/25 naltrexone 8 mg-bupropion 90 mg tablet,extended release (Contrave) 1 tab PO BID WT LOSS 03/09/25 potassium chloride 10 mEq tablet,extended release 10 meq PO QHS 03/09/25 oxycodone-acetaminophen 5 mg-325 mg tablet (Percocet) 1 tab PO Q8H PRN pain 4 days #10 tabs 03/15/25 Hospital Course Operations - (Laparoscopic cholecystectomy) Procedures 2-D Echocardiogram Summary of Care Provided Hospital Course: This is a 59-year-old female who underwent a laparoscopic cholecystectomy on the . Patient was in the PACU and has some abdominal pain and then had what appeared to be ventricular tachycardia. CODE BLUE was called. Patient did not lose consciousness. By the time that the code team arrived, patient was noted to be in SVT and no wide-complex tachycardia. Patient EKG that confirmed such. Patient received 2 mg of adenosine and then converted to sinus rhythm. Patient underwent echocardiogram that was unremarkable. Cardiology reviewed and thinks that she had SVT with aberrancy. Patient will be on metoprolol succinate 25 mg daily to help prevent further events in the future. Discussed with Dr. Ontiveros and patient is stable from a surgical perspective for discharge. Patient improved much faster than initially anticipated as it was concerned the patient actually did have ventricular tachycardia and would warrant further monitoring. But fortune with SVT patient is safe for discharge at this time. Weight / BMI Weight Weight: 94.4 kg Body Mass Index (BMI) 30.8 ABG / Lab / Microbiology Data 03/15/25 10:25 03/16/25 06:12 Laboratory: Laboratory Results - last 24 hr 03/15/25 10:25: WBC 12.5 H, RBC 4.04 L, Hgb 12.7, Hct 38.2, MCV 94.6, MCH 31.4, MCHC 33.2, RDW Std Deviation 43.4, RDW Coeff of Jemal 12.3, Plt Count 233, MPV 9.0, Immature Gran % (Auto) 0.400, Neut % (Auto) 89.7 H, Lymph % (Auto) 6.5 L, [place] % (Auto) 1.8, Eos % (Auto) 1.1, Baso % (Auto) 0.5, Absolute Neuts (auto) 11.3 H, Absolute Lymphs (auto) 0.81 L, Nucleated RBC % 0, D-Dimer Quant (PE/DVT) 0.38, Sodium 141, Potassium 4.4, Chloride 106, Carbon Dioxide 25.9, Anion Gap 8, BUN 14, Creatinine 0.82, Estim Creat Clear Calc 86.80, Est GFR (MDRD) Non-Af 81, BUN/Creatinine Ratio 17.1, Glucose 133 H, Calcium 8.3, Total Bilirubin 0.25, AST 18, ALT 14, Alkaline Phosphatase 80, Troponin T High Sens < 6, Total Protein 6.0, Albumin 3.8, Globulin 2.2, Albumin/Globulin Ratio 1.8 03/15/25 12:15: Troponin T Hi Sens 2 Hr 8 03/15/25 14:15: Troponin T Hi Sens 4Hr 12 03/16/25 06:12: Sodium 140, Potassium 3.9, Chloride 107, Carbon Dioxide 25.8, Anion Gap 8, BUN 13, Creatinine 0.72, Estim Creat Clear Calc 100.36, Est GFR (MDRD) Non-Af 95, BUN/Creatinine Ratio 18.1, Glucose 113 H, Calcium 8.5, Magnesium 2.3 H, TSH 0.797 Radiography Diagnostic Testing: Radiology Impression Echocardiogram 03/15/25 11:17 Interpretation Summary The study was technically difficult. The LV systolic function is normal. EF is 60 %. Mild tricuspid valve insufficiency. RVSP estimated between 31-41 mmHg. Mild focal aortic valve calcification. Ordering Physician: Sidney Gregg Referring Physician: Fernando Ontiveros/Aileen Zelaya Performed By: Magi Gallagher, ESTEE, RVT D/C Instructions Discharge Diet: Light diet - advance as tolerated May shower in (days): 1 Ice area for (Minutes): 30 Call your doctor if your incision/area has: Continuous Slow Oozing, Sudden Increased Bleeding, Increased Pain/ Swelling, Increased Redness, Foul Smelling Discharge and Swelling at the incision site Call your doctor if you observe: Fever of 101 or Higher Cleanse incision/area with: Soap & Water DC O2, CPAP, BIPAP Needs Home O2 Discharge instructions: No Please Follow Up With: Fernando Ontiveros MD When: 2 weeks. Please call office to schedule appointment Meaningful Use Info Meaningful Use Meaningful Use Diagnoses (Choose all that apply): None applicable Ischemic Stroke Statin Dosing Therapy Reference: STATIN DOSE THERAPY REFERENCE: * Patients > 75 years receive moderate or high dose statin therapy. * Patients 75 years or YOUNGER should receive HIGH intensity statin dose unless contraindicated. You will be required to document reason for non-treatment if statin daily dose does not meet guidelines. HIGH DOSE STATIN THERAPY DAILY Atorvastatin > than or = to 40 mg Rosuvastatin > than or = to 20 mg Amlodipine + Atorvastatin > than or = to 2.5/40 mg Ezetimibe + Simvastatin 10/80 mg Simvastatin 80mg Discharge Plan Admission Admit Date/Time: 03/15/25 10:26 Primary Reason for Your Visit: Symptomatic cholelithiasis Attending Provider: Fernando Ontiveros Primary Care Provider: Aileen Zelaya Consulting Providers: Edgardo Lacy; Fernando Ontiveros Discharge Orders/Prescriptions Prescriptions: New oxycodone-acetaminophen [Percocet] 5-325 mg tablet 1 tab PO Q8H PRN (Reason: pain) 4 Days Qty: 10 0RF Continued multivitamin Tablet 1 tab PO DAILY flaxseed oil 1,000 mg capsule 1,000 mg PO DAILY Rx Instructions: administer with a meal cholecalciferol (vitamin D3) 125 mcg (5,000 unit) tablet 125 mcg PO DAILY ascorbate calcium (vitamin C) 500 mg tablet 500 mg PO DAILY budesonide-formoterol [Symbicort] 160-4.5 mcg/actuation HFA aerosol inhaler 2 puff inhalation .Q4-6 PRN (Reason: shortness of breath or wheezing) Qty: 10.2 1RF furosemide 20 mg tablet 20 mg PO BID Qty: 60 7RF duloxetine 60 mg capsule,delayed release(DR/EC) 60 mg PO BID Qty: 60 7RF lidocaine-prilocaine 2.5-2.5 % cream 1 g topical .QID PRN (Reason: pain) Qty: 60 7RF Rx Instructions: Dispense two 30 gm tubes per month. dicyclomine 10 mg capsule 10 mg PO TID Qty: 30 1RF cetirizine [24Hour Allergy] 10 mg tablet 10 mg PO DAILY PRN (Reason: allergy symptoms) potassium chloride 10 mEq tablet extended release 10 meq PO QHS meloxicam 7.5 mg tablet 7.5 mg PO DAILY PRN (Reason: pain) Contrave 8-90 mg tablet extended release 1 tab PO BID Patient Comments: LAST DOSE WILL BE 03/13/25 FOR SURGERY ON 03/16/25 estradiol [Estrace] 1 mg tablet 1 mg PO DAILY Qty: 90 3RF baclofen 10 mg tablet 10 mg PO QDAY PRN (Reason: muscle spasm) Qty: 30 1RF Rx Instructions: TAKE 1 TABLET BY MOUTH NEEDED FOR PAIN daily; Other Ambulatory Orders: 12 Lead EKG (Routine) Timeframe: [id number] Location: None Selected Ordered By: Dr. Warner Mahoney Referrals / Follow Up: Aileen Zelaya MD [Primary Care Provider] - Within 2 Weeks Fernando Ontiveros MD [Med Staff - Active Staff] - Within 2 Weeks Georgette Keating PA [Med Staff - Adv Practice Prof] - Within 1 Month Disposition Disposition (needs filled in before D/C Order can be placed): Home, Self Care Charges/Coding Visit Charges Inpatient E&M: 95414 Disch Hosp
--- NOTE | 2025-03-16 11:01 | CASEMGMT ---
MEDINA MORGAN Assessment Face to Face with patient for initial transition planning/care coordination assessment. RN CATHY introduced self and role at [facility], pt voices understanding. Pt is A&Ox4 and is resting comfortably in bed and is calm. Pt's at bedside. Care providers, pharmacy, and demographics verified. Admitting dx: SVT, VT LACE Strata: 1 PCP: Nathalie Specialists: Rama VALLE (Gen Surgeon) Preferred Pharmacy: [facility] Insurance: [employer] Prescription Benefit: Yes LNOK: Albaro (H), Edgardo (Son) Living Arrangements: Pt lives with her in a 2 story home. Pt is indep. Transportation: Self, DME: Denies HHC/SNF: Denies Pt?s goal: Home Plan: Home, no additional needs identified. Pt states that she is ready to go home today. Pt inquires about the Metoprolol Rx. This RN CM contacted Dr Gregg who placed the order to [facility]. Pt notified and thanks this RN CATHY. Pt denies further home needs or resources such as HH or OP Tx. Pt states that she feels safe returning home with her today and denies further questions or concerns. Pt MEDINA Jackson RN, CM
== END 2025-03-16 11:02 | disposition home or self-care (01) | DRG 418 ==
LOC: SDC 11:42 → ICU 11:42 → MS2 03-16 08:10
PROVIDERS: Anesthesiology; Admitting Provider Surgery; PCP Internal Medicine; Referring Provider Surgery; Visit Provider Surgery
PROC: 0FT44ZZ Resection of Gallbladder, Percutaneous Endoscopic Approach (ICD-10-PCS; CPT 47562; principal; 2025-03-15 07:40)
DX: K80.20 Calculus of gallbladder without cholecystitis without obstruction (principal); I47.10 Supraventricular tachycardia, unspecified; I07.1 Rheumatic tricuspid insufficiency; Z90.710 Acquired absence of both cervix and uterus; Z98.51 Tubal ligation status
CPT/HCPCS: 36415; 80048; 80053; 83735; 84443; 84484; 85025; 85379; 88304; 93005; 93306; 99252; G0463; J0153; J2405

== ENCOUNTER 2025-08-11 18:04 | Emergency (ER) | payer OTHER, SELFPAY ==
[2025-08-11 18:05] VITALS: BP 84/56; PULSE 232; RESP 28; TEMP 36.7; O2SAT 98; BMI 31.2
[2025-08-11] MEDS: Adenosine 6 MG/2 ML Syringe IV (18:09)
[2025-08-11 18:11] VITALS: BP 124/78; PULSE 105; RESP 27; O2SAT 100
[2025-08-11 18:21] LABS: Hematocrit 41.0 % (37-47); Hemoglobin 14.5 g/dL (12.0-15.0); Immature Granulocytes Count 0.040 X10^3/uL (0.0-0.0); Mean Corp Hgb Conc 35.4 g/dL (32-36); Mean Corpuscular Volume 93.4 fL (81-99); Mean Platelet Vol. 8.9 fl (6.2-12.0); NRBC Flagged by Analyzer 0 % (0-5); Platelet Count 295 K/mm3 (150-450); RBC Distribution Width CV 12.7 % (11.6-14.6); RBC Distribution Width SD 43.9 fl (35.1-43.9); Red Blood Count 4.39 M/mm3 (4.2-5.4); White Blood Count 11.1 K/mm3 (4.4-11.0)
--- OUTSIDE RECORDS SUMMARY | 2025-08-11 18:38 | XMS RPT_ITS | CCD ---
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 Rory Pride Primary Care Provider 1([facility] )[phone] Dr. Rory Pride Referring Provider 1([facility])[phone] Dr. Yuli Ames Attending Provider 1([facility] )[phone] Dr. Rory Pride Primary Care Provider 1([facility] )[id number] Dr. Rory Pride Referring Provider 1([facility])[phone] Dr. Ch[place] Urban Attending Provider 1([facility])[phone] Dr. Almas Poole Attending Provider 1([facility])[phone] Rory Pride Primary Care Provider 1([facility] )[id number] Dr. Rory Pride Referring Provider 1([facility])[phone] Dr. [place] Urban Attending Provider 1([facility])[phone] Dr. Almas Poole Attending Provider 1([facility])[phone] Jill Zelaya Attending Provider 1([facility])[phone] Rory Pride Primary Care Provider 1([facility] )[id number] Dr. Rory Pride Referring Provider 1([facility])[phone] Unavailable Primary Care Provider Dr. Jill Conley Primary Care Provider Dr. Jill Zelaya Attending Provider 1([facility]) Dr. Jill Zelaya Referring Provider 1([facility]) [phone] Dr. Rory Pride Referring Provider 1([facility])[phone] Dr. Yuli Ames Attending Provider 1([facility] )[phone] Dr. Jill Zelaya Primary Care Provider Dr. [...] [phone]) Dr. Almas Poole Attending Provider [phone] MIAH Segura Attending Provider 1(330) Nathalie ROJO, Jill Del Toro Primary Care Provider Unava ilable Nathalie ROJO, Jill Del Toro Primary Care Provider 1(330 ) Nathalie ROJO, Dr. Gallagher Primary Care Provider 1( 30) Nathalie ROJO, Dr. Gallagher Referring Provider Dr. Yuli Ames MD Attending Provider Joann ROJO, Dr. Hernandez Attending Provider Nathalie ROJO, Dr. Gallagher Primary Care Provider 1(3 30) Nathalie ROJO, Dr. Gallagher Referring Provider Dr. Yuli Ames MD Attending Provider Nathalie ROJO, Dr. Gallagher Attending Provider Ciara ROJO, Dr. Weldon Attending Provider Ciara ROJO, Dr. Weldon Referring Provider Rama ROJO, Dr. Fernando Pedro Attending Provider Nathalie ROJO, Dr. Gallagher Primary Care Provider [phone] Nathalie ROJO, Dr. Gallagher Referring Provider Kwaku ROJO, Dr. Roldan Attending Provider Rama ROJO, Dr. Fernando Pedro Referring Provider Rama ROJO, Dr. Fernando Pedro Other Provider Rama ROJO, Dr. Fernando Pedro Admit Provider Regino ROJO, Dr. Reynoso Other Provider [phone] Jerald ROJO, Dr. Marquez Attending Provider Dr. Sidney Gregg DO Attending Provider Regino ORJO, Dr. Reynoso Attending Provider Rama ROJO, Dr. Fernando Pedro Referring Provider Georgette nKight Attending Provider [phone] Nathalie ROJO, Dr. Gallagher Primary Care Provider 1(3 30) Joann ROJO, Dr. Hernandez Attending Provider Nathalie ROJO, Dr. Gallagher Referring Provider Georgette Knight Referring Provider [phone] Nathalie ROJO, Dr. Gallagher Primary Care Provider [phone] Clarence Egan Attending Provider Dr. Billy Olivier DO Attending Provider Zulema ROJO, Dr. Coburn Attending Provider [phone] Nathalie, Jill Referring Unavailable Muenster, Jill Primary Care Unavailable David David Attending Unavailable Sidney Gregg Attending Unavailable Fernando Ontiveros Referring Unavailable Fernando Ontiveros Admitting Unavailable Nathalie, Jill Primary Care Unavailable Edgardo Lacy Consulting Unavailable Fernando Ontiveros Consulting Unavailable Fernando Ontiveros Attending Unavailable Nathalie, Jill Attending Unavailable [place]ster, Jill Referring Unavailable Nathalie, Jill Primary Care Unavailable [place], Jill Primary Care Unavailable David David Attending Unavailable Nathalie, Jill Primary Care Unavailable Georgette Knight Attending Unavail able Georgette Knight Referring Unavail able Nathalie, Jill Referring Unavailable Yuli Ames Attending Unavailable [place], Jill Primary Care Unavailable Almas Poole Attending Unavailable Nathalie, Jill Primary Care Unavailable Nathalie, Jill Referring Unavailable Billy Olivier Attending Unavailable Nathalie, Jill Primary Care Unavailable Nathalie, Jill Referring Unavailable Clarence Egan Attending Unavailable [place], Jill Primary Care Unavailable WanekFernando Attending Unavailable Nathalie, Jill Referring Unavailable [place], Jill Primary Care Unavailable [place], Jill Attending Unavailable [place], Jill Referring Unavailable Nathalie, Jill Primary Care Unavailable Wanek, Fernando A Referring Unavailable Nathalie, Jill Primary Care Unavailable Edgardo Lacy Attending Unavailable Alma Marques Attending Unavailable Georgette Knight Referring Unavail able Mu[place], Jill Primary Care Unavailable Alma Marques Attending Unavailable [place], Jill Primary Care Unavailable [place], Jill Referring Unavailable Zulema, Worthington Attending Unavailable [place], Jill Primary Care Unavailable Wanek, Fernando A Referring Unavailable Wanek, Fernando A Consulting Unavailable WanekFernando A Attending Unavailable Nathalie, Jill Primary Care Unavailable WanFernando blakely A Attending Unavailable Nathalie, Jill Referring Unavailable [place], Jill Primary Care Unavailable Nathalie, Jill Referring Unavailable Yuli Ames Attending Unavailable Nathalie, Jill Primary Care Unavailable Nathalie, Jill Attending Unavailable [place], Jill Referring Unavailable Nathalie, Jill Primary Care Unavailable Wanek, Fernando A Referring Unavailable Wanek, Fernando A Admitting Unavailable Wanek, Fernando A Attending Unavailable Edgardo Lacy Consulting Unavailable [place], Jill Primary Care Unavailable Wanek, Fernando A Consulting Unavailable Kyleham, Fatemeh Attending Unavailable Kyleham, Fatemeh Referring Unavailable [place]en[place], Jill Primary Care Unavailable David David Referring Unavailable Nathalie, Jill Primary Care Unavailable Baddour, David Attending Unavailable Fernando Ontiveros Attending Unavailable [place], Jill Referring Unavailable [place], Jill Primary Care Unavailable [place], Jill Referring Unavailable Nathalie, Jill Primary Care Unavailable Georgette Knight Attending Unavail able [place], Jill Referring Unavailable Nathalie, Jill Primary Care Unavailable David David Attending Unavailable Nathalie, Jill Referring Unavailable Yuli Ames Attending Unavailable [place], Jill Primary Care Unavailable Nathalie, Jill Primary Care Unavailable Georgette Knight Referring Unavail able Georgette Knight Attending Unavail able Nathalie, Jill Referring Unavailable Yuli Ames Attending Unavailable Nathalie, Jill Primary Care Unavailable NATHALIE, JILL G Primary Care Unavailable GIANA AMOR Attending Unava ilable NATHALIE, JILL G Primary Care Unavailable GIANA AMORBETH Referring Unava ilable Allergies Allergy Classification Reported Allergen(s) Allergy Type Date of Onset Reaction(s) Facility (20 sources) Sulfonamides (Antibiotic); Translations: [Sulfa (Sulfonamide Antibiotics)] Allergy to substance 08-26-20 20 [facility] (1 source) Cat Propensity to adverse reactions 08-14-20 05 Swelling [facility] Work Phone: (1 source) Dog Propensity to adverse reactions 08-14-20 05 Swelling [facility] Work Phone: (1 source) Sulfamethoxazole / Trimethoprim Drug Allergy 05-01-20 08 [facility] Work Phone: (1 source) hay fever [Other] Propensity to adverse reactions 08-14-20 05 Itching [facility] Work Phone: (1 source) Horse Hair And Dander Propensity to adverse reactions 08-14-20 05 Swelling [facility] Work Phone: (3 sources) Ciprofloxacin; Translations: [CIPROFLOXACIN] Drug Allergy 12-09-19 24 [facility] Work Phone: (3 sources) Seasonal allergy; Translations: [SEASONAL ALLERGIES] Allergy to substance 12-09-19 24 Itching [facility] (10 sources) Acetaminophen Drug Allergy 03-09-20 Other [facility] Comment on above: MAKES ME VERY ANGRY (10 sources) HYDROcodone Drug Allergy 03-09-20 Other [facility] Comment on above: MAKES ME VERY ANGRY (1 source) Acetaminophen Drug Allergy 07-26-20 [facility] (1 source) HYDROcodone Drug Allergy 07-26-20 [facility] Medications Current Medications Medication Drug Class(es) Dates Sig (Normalized) Sig (Original) Budesonide-Formote rol (15 sources) Corticosteroid, beta2-Adrenergic Agonist Start: 11-05-2023 Budesonide-Formotero l (Symbicort) 160-4.5 mcg/actuation HFA aerosol inhaler Active 2 NMA INHALATION .Q4-6 as needed for shortness of breath or wheezing 10.2 1 November 05, 2023 1:00am Asthma Unspecified asthma, uncomplicated Start: 11-05-2023 Budesonide-For moterol (Symbicort) 160-4.5 mcg/actuation HFA aerosol inhaler Active [...] 05, 2023 12:00am 12 hr buPROPion hydrochloride 150 mg extended release oral tablet (20 sources) Aminoketone Start: 05-01-2025 take 1 tablet by mouth twice daily Bupropion Hcl 150 mg tablet sustained-release 12 hr Active 150 mg PO TWICE A DAY 60 May 01, 2025 12:00am Start: 11-14-2024 End: 01-19-2025 take 1 tablet by mouth twice daily Bupropion Hcl (Wellbutrin Sr) 100 mg tablet sustained-release 12 hr Discontinued 100 mg PO TWICE A DAY 60 November 14, 2024 1:00am January 19, 2025 12:32pm Start: 10-10-2024 End: 11-14-2024 take 1 tablet by mouth once daily Bupropion Hcl 75 mg tablet Discontinued 75 mg PO daily 30 October 10, 2024 9:39am November 14, 2024 12:57pm Start: 10-09-2024 End: 10-10-2024 Bupropion Hcl 75 mg tablet Discontinued 75 mg PO daily 30 October 09, 2024 1:00am October 10, 2024 9:39am administer 6 hours apart Start: 05-09-2024 End: 10-09-2024 take 1 tablet by mouth once daily in the morning Bupropion Hcl 150 mg tablet extended release 24 hr Discontinued 150 mg PO EVERY MORNING 90 May 09, 2024 10:35am October 09, 2024 5:53pm Start: 04-07-2024 End: 05-09-2024 take 1 tablet by mouth once daily in the morning Bupropion Hcl (Wellbutrin Xl) 300 mg tablet extended release 24 hr Discontinued 300 mg PO EVERY MORNING 30 April 07, 2024 12:00am May 09, 2024 10:35am Start: 01-20-2024 End: 04-07-2024 take 1 tablet by mouth once daily Bupropion Hcl (Wellbutrin Sr) 150 mg tablet sustained-release 12 hr Discontinued 450 mg PO DAILY 90 January 20, 2024 2:26pm April 07, 2024 11:20am Start: 12-03-2022 End: 01-20-2024 take 1 tablet by mouth once daily Bupropion Hcl (Wellbutrin Sr) 150 mg tablet sustained-release 12 hr Discontinued 300 mg PO DAILY 60 November 30, 2023 9:02am January 20, 2024 5:04pm Start: 11-16-2022 End: 12-03-2022 take 1 tablet by mouth once daily Bupropion Hcl (Wellbutrin Sr) 150 mg tablet sustained-release 12 hr Discontinued 150 mg PO DAILY 30 November 16, 2022 1:00am December 03, 2022 9:04am Start: 09-24-2022 End: 11-05-2022 Bupropion Hcl 150 mg tablet extended release 24 hr Discontinued 150 mg PO DAILY 11 0 September 24, 2022 12:39pm November 05, 2022 [...] Take 1 tablet by lucinda once daily. calcium ascorbate 500 mg oral tablet (20 sources) Start: 09-24-20 End: 12-09-19 take 1 tablet by mouth once daily Ascorbate Calcium (Vitamin C) 500 mg tablet Active 500 mg PO DAILY September 24, 2022 1:00am Comment on above: Take 1 tablet by lucinda once daily. cephalexin 250 mg oral capsule (3 sources) Cephalosporin Antibacterial Start: 01-14-20 23 cephALEXin (KEFLEX) 250 mg capsule TAKE 1 CAPSULE BY MOUTH AFTER INTERCOURSE 0 01/13/2023 Active Comment on above: TAKE 1 CAPSULE BY MO [facility] AFTER INTERCOURSE cetirizine hydrochloride 10 mg oral tablet (12 sources) Histamine-1 Receptor Antagonist Start: 03-09-20 take 1 tablet by mouth once daily as needed Cetirizine (24hour Allergy) 10 mg tablet Active 10 mg PO DAILY as needed for allergy symptoms March 09, 2025 12:00am Start: 12-09-2023 take 1 capsule by mo [facility] once daily Cetirizine (ZYRTEC) 10 mg cap Take 1 capsule by mouth once daily. 0 12/09/2023 Active Comment on above: Take 1 capsule by mo [facility] once daily. cholecalciferol 0.125 mg oral tablet (20 sources) Vitamin D Start: 09-24-20 take 1 tablet by mouth once daily cholecalciferol (VITAMIN D3) 5,000 unit tab Take 5,000 Units by mouth once daily. 0 09/24/2022 Active Start: 09-24-2022 take 1 tablet by [facility] once daily Cholecalciferol (Vitamin D3) 125 mcg (5,000 unit) tablet Active 125 ug PO DAILY September 24, 2022 1:00am Comment on above: Take 5,000 Units by mouth once daily. DULoxetine 60 mg delayed release oral capsule (20 sources) Serotonin and Norepinephrine Reuptake Inhibitor Start: take 1 capsule by mouth once daily Duloxetine 60 mg capsule,delayed release(DR/EC) Active 60 mg PO daily 30 May 01, 2025 2:20pm Start: 08-17-2024 End: 05-01-2025 take 1 capsule by mouth twice daily Duloxetine 60 mg capsule,delayed release(DR/EC) Discontinued 60 mg PO TWICE A DAY 60 October 02, 2024 1:00am December 07, 2024 2:30pm Start: 04-18-2024 End: 04-27-2024 take 1 capsule by mouth once daily Duloxetine 30 mg capsule,delayed release(DR/EC) Discontinued 30 mg PO .Nightly 7 0 April 18, 2024 12:00am April 27, 2024 2:02pm Start: 04-18-2024 End: 10-02-2024 take 1 capsule by mouth at bedtime Duloxetine 60 mg capsule,delayed release(DR/EC) Discontinued 60 mg PO AT BEDTIME 30 August 17, 2024 3:44pm October 02, 2024 6:07pm estradiol 1 mg oral tablet (20 sources) Estrogen Start: 12-05-2024 take 1 tablet by mouth once daily Estradiol (Estrace) 1 mg tablet Active 1 mg PO DAILY 90 3 December 05, 2024 11:16am Start: 03-05-2022 End: 09-24-2022 Estradiol (Estrace) 0.01 % ( 0.1 mg/gram) cream Discontinued 0 VAGINAL .COMPLEX 42.5 3 March 05, 2022 12:00am September 24, 2022 11:35am use fingertip amount or 1-2g every night vaginally x 2 weeks, then 1-3x weekly for maintenance Start: 03-05-2022 End: 09-24-2022 Estradiol (Estrace) 0.01 % ( 0.1 mg/gram) cream Discontinued 0 VAGINAL .COMPLEX 42.5 March 05, 2022 12:00am September 24, 2022 11:35am use fingertip amount or 1-2g every night vaginally x 2 weeks, then 1-3x weekly for maintenance Start: 09-14-2016 End: 10-17-2024 take 1 tablet by mouth once daily Estradiol (Estrace) 1 mg tablet Discontinued 1 mg PO DAILY 90 4 January 13, 2024 4:20pm October 17, 2024 12:43pm Comment on above: Take 1 tablet by lucinda th once daily. furosemide 20 mg oral tablet (20 sources) Loop Diuretic Start: 12-07-2024 take 1 tablet by mouth twice daily Furosemide 20 mg tablet Active 20 mg PO TWICE A DAY 60 December 07, 2024 2:26pm Start: 08-17-2024 End: 12-07-2024 take 1 tablet by mouth once daily in the morning Furosemide 20 mg tablet Discontinued 20 mg PO EVERY MORNING 30 4 August 17, 2024 1:00am December 07, 2024 2:30pm lidocaine 25 mg/ml / prilocaine 25 mg/ml topical cream (20 sources) Antiarrhythmic, Amide Local Anesthetic Start: 08-17-2024 End: 12-07-2024 Lidocaine-Prilocaine 2.5-2.5 % cream Active 1 g TOPICAL .QID as needed for pain 60 December 07, 2024 2:30pm Dispense two 30 gm tubes per month. linseed oil 1000 mg oral capsule (18 sources) Start: 09-24-2022 take 1 capsule by mouth once daily Flaxseed Oil 1,000 mg capsule Active 1000 mg PO DAILY September 24, 2022 1:00am administer with a meal meloxicam 7.5 mg oral tablet (20 sources) Nonsteroidal Anti-inflammatory Drug Start: 01-25-2025 End: 03-09-2025 take 1 tablet by mouth once daily as needed for pain Meloxicam 7.5 mg tablet Active 7.5 mg PO DAILY as needed for pain March 09, 2025 12:00am Start: 04-12-2024 End: 05-26-2024 take 1 tablet by mouth once daily Meloxicam 15 mg tablet Discontinued 15 mg PO DAILY 90 0 April 12, 2024 12:00am May 26, 2024 1:28pm Start: 03-05-2022 End: 09-24-2022 take 1 tablet by mouth once daily Meloxicam 15 mg tablet Discontinued 15 mg PO DAILY March 05, 2022 12:00am September 24, 2022 11:35am 24 hr metoprolol succinate 25 mg extended release oral tablet (14 sources) beta-Adrenergic Kalli Start: 03-16-2025 End: 04-11-2025 take 1 tablet by mouth once daily Metoprolol Succinate 25 mg tablet extended release 24 hr Active 25 mg PO DAILY 90 3 April 11, 2025 2:26pm Multivitamin preparation (8 sources) Start: 06-17-2022 take [...] Take one(1) tablet d aily. Multivitamin tablet (12 sources) Start: 06-17-2022 Multivitamin tablet Active 1 {tbl} PO DAILY June 17, 2022 12:00am naltrexone hydrochloride 50 mg oral tablet (13 sources) Opioid Antagonist Start: 05-01-2025 take 0.5 tablet by mouth twice daily in the morning Naltrexone 50 mg tablet Active 25 mg PO .bid with meals 02 11May 01, 2025 12:00am start with 1/2 tab in am x 1-2 weeks then take 1/2 tab in am and pm with high protein meal. do not take with alcohol Start: 10-17-2024 End: 01-19-2025 take 0.5 tablet by mouth twice daily in the morning Naltrexone 50 mg tablet Discontinued 25 mg PO .bid with meals 02 11October 17, 2024 1:00am January 19, 2025 12:32pm start with 1/2 tab in am x 1-2 weeks then take 1/2 tab in am and pm with high protein meal. do not take with alcohol Completed/Discontinued Medications Medication Drug Class(es) Dates Sig [...] every 4 hours as needed for Headache. acetaminophen 325 mg / oxyCODONE hydrochloride 5 mg oral tablet (9 sources) Opioid Agonist Start: 03-15-2025 End: 04-09-2025 Oxycodone-Acetamin ophen (Percocet) 5-325 mg tablet Discontinued 1 {tbl} PO Q8H as needed for pain 10 4 0 March 15, 2025 April 09, 2025 1:01pm Right upper quadrant abdominal pain Right upper quadrant pain [id number] 200 actuat albuterol 0.09 mg/actuat metered dose inhaler (20 sources) beta2-Adrenergic Agonist Start: 09-24-2022 End: 04-13-2024 Albuterol Sulfate 90 mcg/actuation HFA aerosol inhaler Discontinued 2 NMA INHALATION EVERY 6 HOURS as needed for shortness of breath or wheezing 6.7 0 October 29, 2023 9:49am April 13, 2024 [...] mg tablet Discontinued 50 mg PO DAILY 30 October 26, 2022 10:26am November 05, 2022 9:04am Start: 09-24-2022 End: 10-26-2022 take 1 tablet by mouth once daily Amitriptyline 25 mg tablet Discontinued 25 mg PO DAILY 30 2022 12:50pm October 26, 2022 10:26am ascorbic [...] on above: Take 1 capsule by mo [facility] once daily. aspirin 325 mg oral tablet (2 sources) Platelet Aggregation Inhibitor, Nonsteroidal Anti-inflammatory Drug Start: 12-09-19 End: 03-30-20 take 1 tablet by mouth once daily aspirin 325 mg tablet Take 1 tablet by mouth once daily. 0 12/09/2023 03/30/2024 Discontinued Comment on above: Take 1 tablet by [facility] once daily. azithromycin 250 mg oral tablet (15 sources) Macrolide Antimicrobial Start: 11-05-19 End: 01-20-20 Azithromycin (Zithromax Z-Eliezer) 250 mg tablet Discontinued 0 PO .COMPLEX 6 0 November 05, 2023 1:00am January 20, 2024 2:00pm Asthma Unspecified asthma, uncomplicated For 250 mg dose pack: take 500 mg today (day 1), then 250 mg for 4 days (days 2-5) PO baclofen 10 mg oral tablet (20 sources) gamma-Aminobutyric Acid-ergic Agonist Start: 02-05-20 End: 04-04-20 take 1 tablet by mouth once daily as needed for pain Baclofen 10 mg tablet Discontinued 10 mg PO daily as needed for muscle spasm 02 11January 16, 2025 2:14pm April 04, 2025 12:40pm TAKE 1 TABLET BY MOUTH NEEDED FOR [...] twice daily. biotin 5 mg oral capsule (18 sources) Start: 09-24-20 End: 10-07-19 take 1 capsule by mouth once daily Biotin 5 mg capsule Discontinued 5 mg PO DAILY September 24, 2022 1:00am October 07, 2023 2:28pm 24 hr budesonide 9 mg extended release oral tablet (12 sources) Corticosteroid Start: 05-29-20 End: 06-08-20 take 1 tablet by mouth once daily Budesonide 9 mg tablet,delayed and ext.release Discontinued 9 mg PO DAILY 10 May 29, 2024 12:00am June 07, 2024 12:00am June 08, 2024 12:03am 12 hr buPROPion hydrochloride 90 mg / naltrexone hydrochloride 8 mg extended release oral tablet (20 sources) Opioid Antagonist, Aminoketone Start: 01-20-20 End: 05-01-20 Naltrexone-Bupropio n (Contrave) 8-90 mg tablet extended release Discontinued 1 {tbl} PO TWICE A DAY March 09, 2025 12:00am May 01, 2025 2:10pm WT LOSS calcium carbonate 1500 mg oral tablet (18 sources) Start: 09-24-20 End: 10-17-19 take 1 tablet by mouth once daily Calcium Carbonate (Calcium 600) 600 mg calcium (1,500 mg) tablet Discontinued 600 mg PO DAILY September 24, 2022 1:00am October 17, 2024 12:42pm celecoxib 100 mg oral capsule (20 sources) Nonsteroidal Anti-inflammatory Drug Start: 08-30-20 End: 12-08-19 take 1 capsule by mouth twice daily [...] 2024 1:40pm chlorzoxazone 500 mg oral tablet (20 sources) Muscle Relaxant Start: 08-26-2020 End: 03-05-2022 take 1 tablet by mouth three times daily Chlorzoxazone 500 mg tablet Discontinued 500 mg PO THREE TIMES A DAY August 26, 2020 1:00am March 05, 2022 10:52am dicyclomine hydrochloride 10 mg oral capsule (10 sources) Anticholinergic Start: 03-07-2025 End: 05-01-2025 take 1 capsule by mouth three times daily Dicyclomine 10 mg capsule Discontinued 10 mg PO THREE TIMES A DAY 30 March 07, 2025 12:00am May 01, 2025 12:45pm FLUoxetine 10 mg oral capsule (20 sources) Serotonin Reuptake Inhibitor Start: 04-07-2024 End: [...] 600 mg PO TWICE A DAY 60 0 September 29, 2022 4:46pm 2022 4:05pm Start: [...] tablet afte r intercourse TAKE WITH FOOD potassium chloride 10 meq extended release oral tablet (20 sources) Start: 08-17-20 24 End: 03-09-20 25 take 1 tablet by mouth once daily Potassium Chloride 10 mEq tablet extended release Discontinued 10 meq PO .Nightly 30 7 December 07, 2024 2:29pm March 09, 2025 10:34am predniSONE 50 mg oral tablet (15 sources) Start: 11-05-19 24 End: 11-10-19 24 take 1 tablet by mouth once daily Prednisone 50 mg tablet Discontinued 50 mg PO DAILY 5 5 0 November 05, 2023 1:00am November 09, 2023 1:00am November 10, 2023 1:04am Asthma Unspecified asthma, uncomplicated pregabalin 100 mg oral capsule (20 sources) Start: 11-16-19 End: 04-27-20 take 1 capsule by mouth once daily Pregabalin (Lyrica) 100 mg capsule Discontinued 100 mg PO DAILY 30 0 March 27, 2024 10:14pm April 27, 2024 2:02pm Start: 10-07-2023 End: 01-20-2024 take 1 capsule by mouth twice daily Pregabalin 150 mg capsule Discontinued 150 mg PO TWICE A DAY 60 0 November 08, 2023 10:52pm January 20, 2024 2:01pm Polyneuropathy Polyneuropathy, unspecified Start: 12-03-2022 End: 10-07-2023 take 1 capsule by mouth twice daily Pregabalin 100 mg capsule Discontinued 100 mg PO TWICE A DAY 60 0 August 30, 2023 8:20pm October 08, 2023 12:01am Polyneuropathy Polyneuropathy, unspecified Start: 11-05-2022 End: 12-03-2022 take 1 capsule by mouth once daily, then take 1 capsule by mouth twice daily Pregabalin (Lyrica) 75 mg capsule Discontinued 0 PO .COMPLEX 60 0 November 05, 2022 1:00am December 03, 2022 9:29am Polyneuropathy Polyneuropathy, unspecified orally; take 75mg daily for 1 week, then 75mg twice daily Comment on above: Take 1 capsule by mo ut twice daily. Take 1 capsule by mo ut two times a day. 100mg in AM and 150mg in PM Sod Sulf-Pot Chloride-Mag Sulf (12 sources) Start: 06-01-2024 End: 07-20-2024 take 1.479 tablets by mouth once Sod Sulf-Pot Chloride-Mag Sulf (Sutab) 1.479-0.188- 0.225 gram tablet Discontinued 0 PO per package directions 1 June 01, 2024 12:00am July 20, 2024 10:48am PO PER PKG DIR Start: 06-01-2024 End: 07-20-2024 take 1.479 tablets by mouth once Sod Sulf-Pot Chloride-Mag Sulf (Sutab) 1.479-0.188- 0.225 gram tablet Discontinued 0 PO per package directions 1 June 01, 2024 12:00am July 20, 2024 10:48am PO PER PKG DIR topiramate 25 mg oral tablet (20 sources) Start: 10-14-2023 End: 11-14-2024 take 1 tablet by mouth twice daily before breakfast Topiramate (Topamax) 25 mg tablet Discontinued 25 mg PO TWICE A DAY as needed for WEIGHT LOSS July 20, 2024 12:00am November 14, 2024 12:57pm take before breakfast and before dinner traMADol hydrochloride 50 mg oral tablet (20 sources) Opioid Agonist Start: 08-26-2020 End: 09-24-2022 take 1 tablet by mouth once daily Tramadol 50 mg tablet Discontinued 50 mg PO DAILY August 26, 2020 1:00am September 24, 2022 11:35am 24 hr venlafaxine 37.5 mg extended release oral capsule (20 sources) Serotonin and Norepinephrine Reuptake Inhibitor Start: 08-26-2020 End: 03-05-2022 take 1 capsule by mouth once daily [...] Classification Problem Date Documented Da te Episodic/Chronic Acute bronchitis (18 sources) Acute bronchitis; Translations: [Acute bronchitis, unspecified] 11-05-2023 Episodic Administrative/social admission (2 sources) Persons encountering health services in other specified circumstances; Translations: [Other reasons for seeking consultation] Episodic Asthma (20 sources) Mild intermittent asthma; Translations: [Mild intermittent asthma, uncomplicated] Resolved: 3 Chronic Comment on above: PRN INHALER/WITH ILL NESS Cardiac dysrhythmias (14 sources) Supraventricular tachycardia; Translations: [Supraventricular tachycardia] 03-29-2025 Chronic Genitourinary symptoms and ill-defined conditions (3 sources) Female stress incontinence; Translations: [Stress incontinence (female) (male)] Onset: 2 08-15-2012 Chronic Menstrual disorders (10 sources) Irregular periods; Translations: [Irregular menstruation, unspecified] Onset: 9 Resolved: 3 09-18-2009 Chronic Miscellaneous mental health disorders (20 sources) Body dysmorphic disorder; Translations: [Body dysmorphic disorder] Onset: 5 10-15-2023 Chronic Mood disorders (20 sources) Mild depression; Translations: [Mild depression] Onset: 6 Resolved: 3 Chronic Nonmalignant breast conditions (16 sources) Breast lump; Translations: [Unspecified lump in the left breast, upper inner quadrant] 03-11-2023 Episodic Comment on above: imaging ordered Osteoarthritis (20 sources) Arthritis; Translations: [Unspecified osteoarthritis, unspecified site] Onset: 6 09-24-2022 Chronic Other acquired deformities (4 sources) Scoliosis of lumbar spine; Translations: [Other secondary scoliosis, lumbar region] 06-17-2022 Chronic Other acquired deformities (20 sources) Other secondary scoliosis, lumbar region; Translations: [Scoliosis associated with other conditions] Chronic Other acquired deformities (1 source) Other forms of scoliosis, lumbar region; Translations: [Other forms of scoliosis, lumbar region] Onset: 5 Chronic Other acquired deformities (1 source) Scoliosis, unspecified; Translations: [Scoliosis of lumbar spine, unspecified scoliosis type] Onset: 5 Chronic Other aftercare (2 sources) Encounter for therapeutic drug level monitoring; Translations: [Encounter for therapeutic drug monitoring] Episodic Other circulatory disease (3 sources) Erythromelalgia; 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] Chronic Other circulatory disease (1 source) Acrocyanosis; Translations: [Other specified peripheral vascular diseases] 01-03-2024 Chronic Other circulatory disease (1 source) Raynaud's disease; Translations: [Raynaud's syndrome without gangrene] 04-24-2024 Chronic Other connective tissue disease (1 source) 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; Translations: [Neuralgia and neuritis, unspecified] Episodic Other connective tissue disease (12 sources) Pain in left lower limb; Translations: [Pain in left leg] 04-27-2024 Episodic Other connective tissue disease (11 sources) Trochanteric bursitis; Translations: [Trochanteric bursitis, right hip] 04-27-2025 Episodic Other connective tissue disease (1 source) Trochanteric bursitis, right hip; Translations: [Trochanteric bursitis, right hip] Onset: 5 Episodic Other gastrointestinal disorders (12 sources) Acute diarrhea; Translations: [Diarrhea, unspecified] 06-01-2024 Episodic Other inflammatory condition of skin (3 sources) Rosacea; Translations: [Rosacea, unspecified] Onset: 2 01-29-2012 Chronic Other lower respiratory disease (2 sources) Dyspnea, unspecified; Translations: [Dyspnea, unspecified] Onset: 5 Episodic Other nervous system disorders (8 sources) Polyneuropathy, unspecified; Translations: [Unspecified hereditary and idiopathic peripheral neuropathy] Onset: 5 Chronic Other nervous system disorders (3 sources) Right-sided piriformis syndrome; Translations: [Lesion of sciatic nerve, right lower limb] Onset: 6 10-15-2015 Chronic Other nervous system disorders (1 source) Neuropathy of lower limb; Translations: [Unspecified mononeuropathy of right lower limb] 03-11-2023 Chronic Other nervous system disorders (15 sources) Right leg peripheral neuropathy; Translations: [Unspecified mononeuropathy of right lower limb] 03-11-2023 Chronic Other nervous system disorders (1 source) Neuropathy; Translations: [Polyneuropathy, unspecified] 12-09-2023 Chronic Other nervous system disorders (1 source) Small fiber neuropathy; Translations: [Polyneuropathy, unspecified] 12-09-2023 Chronic Other nervous system disorders (20 sources) Polyneuropathy; Translations: [Polyneuropathy, unspecified] 04-27-2024 Chronic Other non-traumatic joint disorders (3 sources) Arthralgia of the pelvic region and thigh; Translations: [Pain in unspecified hip] 09-23-2006 Episodic Other non-traumatic joint disorders (14 sources) Hip pain; Translations: [Pain in unspecified hip] Onset: 2 05-31-2012 Episodic Other non-traumatic joint disorders (4 sources) Pain in left shoulder; Translations: [Pain in joint, shoulder region] 03-04-2023 Episodic Other non-traumatic joint disorders (10 sources) Pain in right hip; Translations: [Pain in joint, pelvic region and thigh] Onset: 2 03-04-2023 Episodic Other nutritional; endocrine; and metabolic disorders (13 sources) Body mass index 30+ - obesity; Translations: [Obesity, unspecified] 10-22-2024 Chronic Other nutritional; endocrine; and metabolic disorders (20 sources) Overweight; Translations: [Overweight] 10-15-2023 Episodic Comment on above: Nutrition plan: [place] nced calorie restricted nutritional plan- [employer] darion. nutrition counseling doneMedication plan: contrave but will max at one tab BID, tolerated well so will switch to generic dosing with increased naltrexone 25 bid and 100 wellbutrin SR bidbirth control- hyst/postmenBehavior intervention: CBT recommended, recommend daily journal of food intake with electronic methodsExercise plan: increase daily steps and NEAT activity, get activity tracker Nutrition plan: [place] nced calorie restricted nutritional plan- [employer] darion. nutrition counseling doneMedication plan: contrave but will max at one tab BIDbirth control- hyst/postmenBehavior intervention: CBT recommended, recommend daily journal of food intake with electronic methodsExercise plan: increase daily steps and NEAT activity, get activity tracker Other nutritional; endocrine; and metabolic disorders (15 sources) Overweight in adulthood with body mass [...] nutritional; endocrine; and metabolic disorders (4 sources) Overweight; Translations: [Overweight] Onset: 5 10-14-2023 Episodic Other nutritional; endocrine; and metabolic disorders (20 sources) Body mass index 25-29 - overweight; Translations: [Overweight] 11-14-2024 Episodic Comment on above: SW- 209 10/14/24Initi al goal- s/p 5% weight reduction with nutritional and medication intervention recommendations.labs ordered by PCP- reviewed. Other nutritional; endocrine; and metabolic disorders (1 source) Abnormal weight gain; Translations: [Abnormal weight gain] Onset: 5 Episodic Other screening for suspected conditions (not mental disorders or infectious disease) (15 sources) Encounter for screening for cardiovascular disorders; Translations: [Screening for other and unspecified cardiovascular conditions] 10-07-2023 Episodic Prolapse of female genital organs (9 sources) Midline cystocele; Translations: [Cystocele, midline] Onset: 9 09-18-2009 Chronic Residual codes; unclassified (15 sources) Peripheral edema; Translations: [Localized edema] 11-05-2023 Episodic Residual codes; unclassified (3 sources) Insomnia, unspecified; Translations: [Insomnia, unspecified] 10-07-2023 Episodic Residual codes; unclassified (3 sources) Localized edema; Translations: [Edema] 11-05-2023 Episodic Residual codes; unclassified (18 sources) Edema of lower extremity; Translations: [Localized edema] 08-17-2024 Episodic Residual codes; unclassified (12 sources) Insomnia; Translations: [Insomnia, unspecified] 04-27-2024 Episodic Residual codes; unclassified (2 sources) Acquired absence of other specified parts of digestive tract; Translations: [Acquired absence of other specified parts of digestive tract] Onset: 5 Episodic Residual codes; unclassified (1 source) Pain, unspecified; Translations: [Pain] Onset: 5 Episodic Spondylosis; intervertebral disc disorders; other back problems (20 sources) Other intervertebral disc degeneration, lumbar region; Translations: [Degeneration of lumbar or lumbosacral intervertebral disc] Onset: 6 Chronic Spondylosis; intervertebral disc disorders; other back problems (3 sources) Backache; Translations: [Dorsalgia, unspecified] 09-23-2006 Episodic Unclassified (2 sources) Supraventricular tachycardia, unspecified; Translations: [Supraventricular tachycardia, unspecified] Onset: 5 Unclassified (1 source) Degeneration of intervertebral disc of lumbar region with discogenic back pain and lower extremity pain; Translations: [Degeneration of intervertebral disc of lumbar region with discogenic back pain and lower extremity pain] Onset: Past or Other Problems Problem Classification Problem Date Documented Da te Episodic/Chronic Abdominal pain (20 sources) Right upper quadrant pain; Translations: [Right upper quadrant pain] Onset: 03-30-2025 03-02-2025 Episodic Allergic reactions (2 sources) Radiation-induced dermatosis; Translations: [Other skin changes due to chronic exposure to nonionizing radiation] Onset: 09-03-2008 Resolved: 10-18-2012 10-18-2012 Episodic Cardiac dysrhythmias (20 sources) Palpitations; Translations: [Palpitations] Onset: 10-13-2000 Resolved: 10-18-2012 10-18-2012 Episodic Hemorrhoids (1 source) Internal hemorrhoids; Translations: [Other hemorrhoids] Onset: 09-10-2006 Resolved: 10-18-2012 10-18-2012 Episodic Immunizations and screening for infectious disease (14 sources) Encounter for immunization; Translations: [Need for prophylactic vaccination and inoculation against unspecified single disease] Onset: 01-25-2025 Episodic Malaise and fatigue (1 source) Malaise and fatigue; Translations: [Other malaise] Onset: 03-04-2003 Resolved: 10-18-2012 10-18-2012 Episodic Nonspecific chest pain (16 sources) Chest pain; Translations: [Chest pain, unspecified] Onset: 03-29-2025 03-29-2025 Episodic Other and unspecified benign neoplasm (1 [...] Onset: 09-10-2006 Resolved: 10-18-2012 10-18-2012 Episodic Other non-traumatic joint disorders (1 source) Soft tissue lesion of shoulder region; Translations: [Other specified joint disorders, unspecified shoulder] Onset: 05-07-2006 Resolved: 10-18-2012 10-18-2012 Episodic Other skin disorders (3 sources) Disorder [...] Test Name Value Interpretation Reference Range Facility [facility] 08-02-2025 CNOV Office Visit (ORTHBR ) RASHEEDAMORENO O ([id number]) 1965 F Date Time Provider Department 08/02/25 2:20 PM GIANA AMOR ORTHBR During your visit today, we recorded the following information about you: Weight Height 90.7 kg 1.753 m Giana Amor DO 08/03/2025 1:43 PM Signed CHIEF COMPLAINT: Patient presents with: Right Hip - New, Pain PAIN EVALUATION 08/02/2025 1301 08/02/2025 1410 Pain Level: 6 6 Pain Location: Hip-Right Hip-Right Description: Burning;Dull;Radiating;Rodrigo p;Throbbing Aching;Throbbing;Sharp Duration Amount of Time: -- 9 Duration Units: -- Years Frequency: Intermittent Continuous Intervention/Comfort measure: Medication;Reposition;Relax ation;Cold;Distractions;Edu cation;Emotional Support/Reassurance;Exercis e;Heat;Pillow support;Positioning Declined HISTORY OF PRESENT ILLNESS: The patient is a 59-year-old female with chronic low back pain and erythromelalgia, presenting for evaluation of worsening deep right hip pain limiting ambulation. Accompanied by her . This has been present for at least 9 years. Right Hip Pain: - Chronic right hip pain, worsening over the past 2-2.5 years. - Pain is deep. - Aggravated by walking and standing (really any weight bearing activity); alleviated by sitting and lying in a specific position. - Severe pain when weight-bearing, causing limping and inability to walk long distances. - Pain has significantly impacted daily activities and quality of life. - Recent bupivacaine, lidocaine, and Depo-Medrol injection by ortho provided 75% relief for less than 2 weeks. - Previous physical therapy and home exercises (e.g., clamshells) with minimal relief. - No known trauma or injury to the hip. - Denies any previous intra-articular hip injections. Lower Back Pain: - Diagnosed with scoliosis, with noticeable curvature at L2 and L3. - Reports loss of one inch in height. - Previous MRI of the spine in 2017 showed scoliosis. - History of severe back pain with shocks in the back, treated with multiple steroid injections. - Underwent radiofrequency ablations on facet joints L3, L4, and L5, which provided significant relief at OSH. This really helped her back pain, but the hip pain persisted and worsened. - Previous SI joint injections over a year ago as well. - Denies current back pain, but still has pain that can radiate into the lower leg. Erythromelalgia: - Diagnosed with erythromelalgia at [facility]. - Symptoms include swelling, redness, and stabbing pain in the feet when hot. - Uses a topical cream for symptom management. - EMG showed numbness in toes, with worsening numbness recently. 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 Allergies and current medications reviewed. Notes reviewed: Ortho Surg 2016 Last Hgba1c: No results found for: HBA1C Last Creatinine: Creatinine Date Value Ref Range Status 10/30/2014 0.82 0.70 - 1.40 mg/dL Final 03/20/2014 0.84 0.70 - 1.40 mg/dL Final Last Vitamin D: Vitamin D 25 Hydroxy (ng/mL) Date Value 10/30/2014 26.3 PHYSICAL EXAMINATION: Body Habitus: well nourished and no acute distress Orientation: Normal: Oriented to person, place and time Psych: normal Specific MSK Exam RIGHT HIP: Inspection - Deformity: No., Atrophy: No. Gait - antalgic SLR - right Negative, left Negative Palpation - Greater trochanter: Negative Gluteus medius: Negative Piriformis: Positive ROM - Right hip: Flexion: 120 IR: 20 ER: 40 Pain with ROM: No Left hip: Flexion: 120 IR: 20 ER: 40 Pain with ROM: No Strength Supine HF 4+/5 with no pain Upright HF 4+/5 with no pain Adduction 5/5 with no pain Abduction 5/5 with no pain Sensation - normal to light touch Reflexes - N/A Special Tests - Anterior impingement: Negative Dynamic labral stress: Negative ABBE: Negative No tenderness of midline or paraspinal L-spine Able to forward flex without issue No pain with lumbar extension Mild discomfort into buttocks with facet loading IMAGING: Final results and radiologist's interpretation, available in the [facility] health record. Images were reviewed with the patient/family members in the office today. My personal interpretation of the performed imaging is chronic degenerative changes of L-spine. CLINICAL IMPRESSION: (M25.551) Pain in right hip (primary en (more content not included)... Normal [facility] Internal Medicine Office Vis sofi 07-24-2025 Internal Medicine Office Visit [facility] Internal Medicine [address] [place] [address] [place] [address] OFFICE VISIT Date of Service: 07/26/25 MR#: [id number] Acct: [id number] Name: MORENO VANESSA Rep #: [id number] : 1965 Provider: Dr. Jill laughlin MD Age/Sex: 59/F Location: [facility] Status: Signed Intake Vital Signs 01/25/25 13:05 05/01/25 12:49 07/26/25 13:04 Height 5 ft 9 in 5 ft 9 in 5 ft 9 in Weight: 207 lb BMI 30.5 BP 98/72 Blood Pressure Location Lt brachial Position Sitting Respiration 16 Pulse 79 Pulse Source Monitor Temp 98.2 F Temp Source Temporal Pulse Oximetry (%) 95 Oxygen Delivery Method room air Intake Visit Reasons: 6 M FU Chief Complaint: 6 M FU Is patient in pain?: Yes (RIGHT HIP) Pain scale (1-10): 5 Allergies Sulfa (Sulfonamide Antibiotics) Allergy (Mild, Verified 07/26/25 12:58) rash acetaminophen (From Vicodin) Adverse Reaction (Intermediate, Verified 07/26/25 12:58) Other hydrocodone (From Vicodin) Adverse Reaction (Intermediate, Verified 07/26/25 12:58) Other Medications ???Medication ???Instructions ???Recorded ???Confirmed ???Type multivitamin 1 tab PO DAILY 06/17/22 07/26/25 H istory ascorbate calcium (vitamin C) 500 500 mg PO DAILY 09/24/22 07/26/25 History mg tablet cholecalciferol (vitamin D3) 125 125 mcg PO DAILY 09/24/22 07/26/25 History mcg (5,000 unit) tablet flaxseed oil 1,000 mg capsule 1,000 mg PO DAILY 09/24/22 5 History budesonide-formoterol HFA 160 2 puff inhalation .Q4-6 PRN 07/26/25 Rx mcg-4.5 mcg/actuation aerosol shortness of breath or wheezing inhaler (Symbicort) #10.2 grams furosemide 20 mg tablet 20 mg PO BID #60 tabs 12/07/24 Rx lidocaine-prilocaine 2.5 %-2.5 % 1 g topical .QID PRN pain #60 gram s 12/07/24 07/26/25 Rx topical cream cetirizine 10 mg tablet (24Hour 10 mg PO DAILY PRN allergy symptom s 03/09/25 07/26/25 History Allergy) potassium chloride 10 mEq 10 meq PO QHS 03/09/25 07/26/25 Hi story tablet,extended release metoprolol succinate 25 mg 25 mg PO DAILY #90 tabs 04/11/25 1 Rx tablet,extended release 24 hr bupropion HCl 150 mg tablet,12 hr 150 mg PO BID #60 ea 05/01/25 Rx sustained-release duloxetine 60 mg capsule,delayed 60 mg PO QDAY #30 caps 05/01/25 Rx release naltrexone 50 mg tablet 25 mg (1/2 x 50 mg) PO .bid with 0 05/01/25 07/26/25 Rx meals #30 tabs djuzrfnpwi-fycyjcaxtrssf-hk ffeine 1 cap PO Q6H PRN pain #30 caps 07/26/25 Rx 50 mg-300 mg-40 mg capsule (Fioricet) baclofen 10 mg tablet 10 mg PO QDAY PRN muscle spasm #30 06/05/25 07/26/25 Rx tabs estradiol 1 mg tablet (Estrace) 0.5 mg PO DAILY 07/26/25 07/26/25 History Have you fallen in the past year?: No PFSH Medical History (Updated 07/26/25 @ 15:[address] Jill Zelaya MD) SVT (supraventricular tachycardia) Anxiety History of IBS History of stress test RUQ abdominal pain Wears glasses History of steroid therapy Back pain Non-smoker Colitis Leg cramps History of pain when walking History of edema Acute diarrhea Neuropathy of right foot Peripheral neuropathy Erythromelalgia Scoliosis Degenerative disc disease Depression Surgical History (Updated 07/26/25 @ 15:[address] Jill Zelaya MD) History of cataract surgery S/P cholecystectomy Hx of colonoscopy History of surgical procedure H/O tubal ligation S/P laparoscopic assisted vaginal hysterectomy (LAVH) delivery delivered Family History Other Adopted Social History (Updated 07/26/25 @ 13:[address] Jill Zelaya MD) adopted: Yes household members: spouse current occupational status: employed current occupation: [employer] Smoking Status: Never smoker Electronic Cigarette Use: [...] at all 5. Poor appetite or overeating: several days 6. Feeling bad about yourself - or that you are a failure or have let yourself and your family down: not at all 7. Trouble concentrating on things, such as reading the newspap (more content not included)... Normal [facility] Coronary Angiography CTon Coronary Angiography CT [facility] Imaging Services [address] [place] [address] 05/04/25 0754 MR#: [id number] Acct: [id number] Name: MORENO VANESSA Rep #: [id number] : 1965 59 From: Almas Poole MD PCP: Dr. Jill Zelaya MD Status:REG REF Y Location: CT Calcium Scoring Date of Study:: 05/03/25 Indications Indications: CP Coronary Calcium Scoring: High-resolution Computed Tomographic imaging of the chest was performed on [05/03/25 ], with particular attention paid to the coronary arteries. Images from the examination were analyzed for the presence and extent of coronary artery calcification , using coronary calcium quantification software. The patient tolerated the procedure well and there were no complications. The results of the coronary calcification analysis are provided below. Findings Coronary Artery Left Main (LM): 0 Left Anterior Descending (LAD): 0 Left Circumflex (LCX): 0 Right Coronary Artery (RCA): 0 Total Agatston Score: 0 Percentile Rankin% Calcium Scoring Interpretation: Different methods to categorize the overall amount of coronary plaque. Overall amount CAC SIS Visual of coronary plaque P1 Mild -100 <2 1-2 vessels with mild amount of plaque P2 Moderate 101-300 3-4 1-2 vessels with moderate amount, 3 vessels with mild amount of plaque P3 Severe 301-999 5-7 3 vessels with moderate amount, 1 vessel with severe amount of plaque P4 Extensive >1000 >8 2-3 vessels with severe amount of plaque Conclusion: No atherosclerotic plaque 05/04/25 0755 Date Almas Poole MD Cosigner Signature (if applicable): Date CC: Dr. Jill Zelaya MD; Dr. Almas Poole MD; DEANNA Ervin Signed Normal [facility] Limited Chest CT Cardiac Onl yon 05-03-[address] Cardiac Only [facility] Imaging Services [address] [place] [address] Cardiac Only MR#: [id number] Acct: [id number] Name: MORENO VANESSA Rep #: [id number] : 1965 F 59 From: Jamse shaikh MD PCP: Dr. Jill Zelaya MD Status: REG REF Study: Limited Chest CT Cardiac Only Date of Exam: Exam# [id number] Ordering Dr: Georgette Keating PA PROCEDURE: LIMITED CHEST CT CARDIAC ONLY 05/03/2025 REASON FOR EXAM: CP TECHNIQUE: LIMITED CHEST CT CARDIAC ONLY CONTRAST: None One or more dose reduction techniques were used (e.g., Automated exposure control, adjustment of the mA and/or kV according to patient size, use of iterative reconstruction technique). RADIATION DOSE SUMMARY: CTDlvol: 12.19 mGy DLP: 219.42 mGycm COMPARISON: None FINDINGS: Atherosclerotic calcification of the aortic arch. Small mediastinal lymph nodes. Minimal coronary artery calcification. Focal area of scarring right lower lobe. CT/Limited Chest CT Cardiac Only IMPRESSION: Minimal coronary artery calcification. Reading Location: [facility] CC: Dr. Jill Zelaya MD; DEANNA Ervin Market Risk Manager: Signed Normal [facility] Dining Manager Office Visit Reporton 05-01-2025 Dining Manager Office Visit Report [facility] [address], [address] [place] [address] OFFICE VISIT Date of Service: 05/01/25 MR#: [id number] Acct: [id number] Name: MORENO VANESSA Rep #: [id number] : 1965 Provider: Dr. Yuli rendon MD Age/Sex: 59/F Location: [facility] Status: Signed Intake Vital Signs 04/27/25 14:02 05/01/25 12:45 05/01/25 12:49 Height 5 ft 9 in 5 ft 9 in 5 ft 9 in Weight: 198 lb 200 lb 6 oz BMI 29.2 29.5 BP 128/72 H 108/78 Blood Pressure Location Rt brachial Rt brachial Position Sitting Sitting Respiration 16 18 Pulse 76 82 Pulse Source Monitor Monitor Temp 96.3 F L Pulse Oximetry (%) 94 Oxygen Delivery Method room air Intake Visit Reasons: FU *ok per SM Chief Complaint: FU Product Marketing Executive Required: No Is patient in pain?: No Allergies Sulfa (Sulfonamide Antibiotics) Allergy (Mild, Verified 05/01/25 12:45) rash acetaminophen (From Vicodin) Adverse Reaction (Intermediate, Verified 05/01/25 12:45) Other hydrocodone (From Vicodin) Adverse Reaction (Intermediate, Verified 05/01/25 12:45) Other Medications ???Medication ???Instructions ???Recorded ???Confirmed ???Type multivitamin 1 tab PO DAILY 06/17/22 05/01/25 H istory ascorbate calcium (vitamin C) 500 500 mg PO DAILY 09/24/22 05/01/25 History mg tablet cholecalciferol (vitamin D3) 125 125 mcg PO DAILY 09/24/22 05/01/25 History mcg (5,000 unit) tablet flaxseed oil 1,000 mg capsule 1,000 mg PO DAILY 09/24/22 5 History budesonide-formoterol HFA 160 2 puff inhalation .Q4-6 PRN 05/01/25 Rx mcg-4.5 mcg/actuation aerosol shortness of breath or wheezing inhaler (Symbicort) #10.2 grams estradiol 1 mg tablet (Estrace) 1 mg PO DAILY #90 tabs 12/05/24 Rx furosemide 20 mg tablet 20 mg PO BID #60 tabs 12/07/24 Rx lidocaine-prilocaine 2.5 %-2.5 % 1 g topical .QID PRN pain #60 gram s 12/07/24 05/01/25 Rx topical cream cetirizine 10 mg tablet (24Hour 10 mg PO DAILY PRN allergy symptom s 03/09/25 05/01/25 History Allergy) meloxicam 7.5 mg tablet 7.5 mg PO DAILY PRN pain 03/09/25 05/01/25 History potassium chloride 10 mEq 10 meq PO QHS 03/09/25 05/01/25 Hi story tablet,extended release baclofen 10 mg tablet 10 mg PO QDAY PRN muscle spasm #30 04/04/25 05/01/25 Rx tabs metoprolol succinate 25 mg 25 mg PO DAILY #90 tabs 04/11/25 0 05/01/25 Rx tablet,extended release 24 hr bupropion HCl 150 mg tablet,12 hr 150 mg PO BID #60 ea 05/01/25 Rx sustained-release duloxetine 60 mg capsule,delayed 60 mg PO QDAY #30 caps 05/01/25 Rx release naltrexone 50 mg tablet 25 mg (1/2 x 50 mg) PO .bid with 0 05/01/25 05/01/25 Rx meals #30 tabs Last Menstrual Period: 02/14/08 : No PFSH PFSH Medical History SVT (supraventricular tachycardia) Anxiety History of IBS History of stress test RUQ abdominal pain Wears glasses History of steroid therapy Back pain Non-smoker Colitis Leg cramps History of pain when walking History of edema Acute diarrhea Neuropathy of right foot Peripheral neuropathy Erythromelalgia Scoliosis Asthma Degenerative disc disease Depression Surgical History S/P cholecystectomy Hx of colonoscopy History of surgical procedure H/O tubal ligation S/P laparoscopic assisted vaginal hysterectomy (LAVH) delivery delivered Family History Other Adopted Social History adopted: Yes household members: spouse current occupational status: employed current occupation: [employer] Smoking Status: Never smoker Electronic Cigarette Use: [...] Ghanshyam live - full term Male HPI FU *ok per SM Details: MORENO VANESSA is a 59 year old Female presenting for a weight management follow-up. She has been on Contrave for several months but only (more content not included)... [facility] HIP, UNI W/ Pelvis 2-3 Views on 04-30-2025 HIP, UNI W/ Pelvis 2-3 Views [facility] Imaging Services [address] [place] [address] HIP, UNI W/ Pelvis 2-3 Views MR#: [id number] Acct: [id number] Name: MORENO VANESSA Rep #: [id number] : 1965 F 59 From: Jeremiah Kelly MD PCP: Dr. Jill Zelaya MD Status: DEP AMB Study: HIP, UNI W/ Pelvis 2-3 Views Date of Exam: Exam# [id number] Ordering Dr: Billy Olivier DO PROCEDURE: HIP, UNI W/ PELVIS 2-3 VIEWS 04/30/2025 REASON FOR EXAM: CHRONIC PAIN TECHNIQUE: HIP, UNI W/ PELVIS 2-3 VIEWS COMPARISON: 10/27/2023 FINDINGS: Bones: No demonstrated fracture or suspicious osseous lesion Joints: Joint spaces well-preserved Soft tissues: Unremarkable Other: RAD/HIP, UNI W/ Pelvis 2-3 Views IMPRESSION: No acute findings, no interval change Reading Location: [id number] CC: Dr. Jill Zelaya MD; Dr. Billy Olivier DO Market Risk Manager: Signed [facility] Orthopedic Visit Reporton Orthopedic Visit Report [facility] [address] [place] [address] [address] [place] [address] OFFICE VISIT Date of Service: 04/30/25 MR#: [id number] Acct: [id number] Name: MORENO VANESSA Rep #: [id number] : 1965 Provider: Dr. Billy griffith DO Age/Sex: 59/F Location: [facility] Status: Signed Intake Vital Signs 04/27/25 14:02 Height 5 ft 9 in Weight: 198 lb BMI 29.2 BP 128/72 H Blood Pressure Location Rt brachial Position Sitting Respiration 16 Pulse 76 Pulse Source Monitor Temp 96.3 F L Temp Source Temporal Pulse Oximetry (%) 94 Oxygen Delivery Method room air Intake Visit Reasons: RIGHT HIP Chief Complaint: Right Hip Pain Accompanied by: Is patient in pain?: Yes Allergies Sulfa (Sulfonamide Antibiotics) Allergy (Mild, Verified 04/30/25 14:49) rash acetaminophen (From Vicodin) Adverse Reaction (Intermediate, Verified 04/30/25 14:49) Other hydrocodone (From Vicodin) Adverse Reaction (Intermediate, Verified 04/30/25 14:49) Other Medications ???Medication ???Instructions ???Recorded ???Confirmed ???Type multivitamin 1 tab PO DAILY 06/17/22 04/30/25 H istory ascorbate calcium (vitamin C) 500 500 mg PO DAILY 09/24/22 04/30/25 History mg tablet cholecalciferol (vitamin D3) 125 125 mcg PO DAILY 09/24/22 04/30/25 History mcg (5,000 unit) tablet flaxseed oil 1,000 mg capsule 1,000 mg PO DAILY 09/24/22 5 History budesonide-formoterol HFA 160 2 puff inhalation .Q4-6 PRN 04/30/25 Rx mcg-4.5 mcg/actuation aerosol shortness of breath [...] .QID PRN pain #60 gram s 12/07/24 04/30/25 Rx topical cream dicyclomine 10 mg capsule 10 mg PO TID #30 caps 03/07/25 Rx cetirizine 10 mg tablet (24Hour 10 mg PO DAILY PRN allergy symptom s 03/09/25 04/30/25 History Allergy) meloxicam 7.5 mg tablet 7.5 mg PO DAILY PRN pain 03/09/25 04/30/25 History naltrexone 8 mg-bupropion 90 mg 1 tab PO BID WT LOSS 03/09/2504/04 History tablet,extended release (Contrave) potassium chloride 10 mEq 10 meq PO QHS 03/09/25 04/30/25 Hi story tablet,extended release baclofen 10 mg tablet 10 mg PO QDAY PRN muscle spasm #30 04/04/25 04/30/25 Rx tabs metoprolol succinate 25 mg 25 mg PO DAILY #90 tabs 04/11/25 0 04/30/25 Rx tablet,extended release 24 hr PFSH Medical History SVT (supraventricular tachycardia) Anxiety History of IBS History of stress test RUQ abdominal pain Wears glasses History of steroid therapy Back pain Non-smoker Colitis Leg cramps History of pain when walking History of edema Acute diarrhea Neuropathy of right foot Peripheral neuropathy Erythromelalgia Scoliosis Asthma Degenerative disc disease Depression Surgical History S/P cholecystectomy Hx of colonoscopy History of surgical procedure H/O tubal ligation S/P laparoscopic assisted vaginal hysterectomy (LAVH) delivery delivered Family History Other Adopted Social History adopted: Yes household members: spouse current occupational status: employed current occupation: [employer] Smoking Status: Never smoker Electronic Cigarette Use: not used alcohol intake: current alcohol intake frequency: holidays/special occasions only details: social substance use type: does not use caffeine: Yes what type of physical activity do you participate in: none seatbelt use: always do you feel safe at home: Yes additional social history: [facility] RIGHT HIP Details: This documentation accurately reflects the service provided and the decisions made by me, Dr. Billy Olivier, DO 04/30/25 0811. Part of today???s visit was documented by Steph Burdick ATC, acting as scribe. MORENO VANESSA is a 59 year old F here today for right lateral hip pain. Patient was referred by Shekhar Jones and she requests a greater trochanter bursa injection. She states she has had this pain for a couple years now. She denies any previous injections in the greater trochanter bursa. She describes the pain right over the greater trochanter. She denies any pain down the leg at all. She states she takes Tylenol/Aleve every day. She has done a lot of physical therapy for the hip and it has never given he (more content not included)... [facility] Internal Medicine Office Vis sofi 04-27-2025 Internal Medicine Office Visit [facility] [place] [address] [place] [address] OFFICE VISIT Date of Service: 04/27/25 MR#: [id number] Acct: [id number] Name: MORENO VANESSA Rep #: [id number] : 1965 Provider: DEANNA Beauchamp Age/Sex: 59/F Location: [facility] Status: Signed Intake Vital Signs 03/29/25 09:37 04/27/25 14:02 Height 5 ft 9 in 5 ft 9 in Weight: 200 lb 198 lb BMI 29.5 29.2 BP 103/67 128/72 H Blood Pressure Location Lt brachial Rt brachial Position Sitting Sitting Respiration 18 16 Pulse 76 76 Pulse Source Monitor Monitor Temp 96.3 F L Temp Source Temporal Pulse Oximetry (%) 94 Oxygen Delivery Method room air Intake Visit Reasons: HIP INJECTION Chief Complaint: injection needed Product Marketing Executive Required: No Accompanied by: Self Is patient in pain?: No Allergies Sulfa (Sulfonamide Antibiotics) Allergy (Mild, Verified 04/27/25 14:02) rash acetaminophen (From Vicodin) Adverse Reaction (Intermediate, Verified 04/27/25 14:02) Other hydrocodone (From Vicodin) Adverse Reaction (Intermediate, Verified 04/27/25 14:02) Other Medications ???Medication ???Instructions ???Recorded ???Confirmed ???Type multivitamin 1 tab PO DAILY 06/17/22 04/27/25 H istory ascorbate calcium (vitamin C) 500 500 mg PO DAILY 09/24/22 04/27/25 History mg tablet cholecalciferol (vitamin D3) 125 125 mcg PO DAILY 09/24/22 04/27/25 History mcg (5,000 unit) tablet flaxseed oil 1,000 mg capsule 1,000 mg PO DAILY 09/24/22 5 History budesonide-formoterol HFA 160 2 puff inhalation .Q4-6 PRN 04/27/25 Rx mcg-4.5 mcg/actuation aerosol shortness of breath [...] .QID PRN pain #60 gram s 12/07/24 04/27/25 Rx topical cream dicyclomine 10 mg capsule 10 mg PO TID #30 caps 03/07/25 Rx cetirizine 10 mg tablet (24Hour 10 mg PO DAILY PRN allergy symptom s 03/09/25 04/27/25 History Allergy) meloxicam 7.5 mg tablet 7.5 mg PO DAILY PRN pain 03/09/25 04/27/25 History naltrexone 8 mg-bupropion 90 mg 1 tab PO BID WT LOSS 03/09/2504/04 History tablet,extended release (Contrave) potassium chloride 10 mEq 10 meq PO QHS 03/09/25 04/27/25 Hi story tablet,extended release baclofen 10 mg tablet 10 mg PO QDAY PRN muscle spasm #30 04/04/25 04/27/25 Rx tabs metoprolol succinate 25 mg 25 mg PO DAILY #90 tabs 04/11/25 0 04/27/25 Rx tablet,extended release 24 hr Nurse's Note: right hip painful needing injection [facility] Medical History SVT (supraventricular tachycardia) Anxiety History of IBS History of stress test RUQ abdominal pain Wears glasses History of steroid therapy Back pain Non-smoker Colitis Leg cramps History of pain when walking History of edema Acute diarrhea Neuropathy of right foot Peripheral neuropathy Erythromelalgia Scoliosis Asthma Degenerative disc disease Depression Surgical History S/P cholecystectomy Hx of colonoscopy History of surgical procedure H/O tubal ligation S/P laparoscopic assisted vaginal hysterectomy (LAVH) delivery delivered Family History Other Adopted Social History adopted: Yes household members: spouse current occupational status: employed current occupation: [employer] Smoking Status: Never smoker Electronic Cigarette Use: not used alcohol intake: current alcohol intake frequency: holidays/special occasions only details: social substance use type: does not use caffeine: Yes what type of physical activity do you participate in: none seatbelt use: always do you feel safe at home: Yes additional social history: [facility] Chief Complaint: injection needed Details: MORENO VANESSA, is a 59 F who presents to the office today to discuss possible injection. Patient has had pains in the right hip for a long time now (probably over a year now closer to two). She states that she has done stretches and some exercises and it has not helped. She has no problems when she is seated but she feels this when she is active especially after first rising and with stairs. She has tried icing/heating and NSAIDs with limited relief. She states she rolls over in bed on that side at night and it really causes pain. She states that she has seen different provid (more content not included)... [facility] Surgery Visit Reporton 04-09 Surgery Visit Report [facility] [address] [place] [address] OFFICE VISIT Date of Service: 04/09/25 MR#: [id number] Acct: [id number] Name: MORENO VANESSA MARYZAN Rep #: [id number] : 1965 Provider: Dr. Fernando blakely MD Age/Sex: 59/F Location: [facility] Status: Signed Intake Vital Signs 03/29/25 09:37 Height 5 ft 9 in Weight: 200 lb BMI 29.5 BP 103/67 Blood Pressure Location Lt brachial Position Sitting Respiration 18 Pulse 76 Pulse Source Monitor Intake Visit Reasons: CHECK SUTURES S/P GALLBLADDER SX Chief Complaint: open area at incision Is patient in pain?: No Allergies Sulfa (Sulfonamide Antibiotics) Allergy (Mild, Verified 04/09/25 13:00) rash acetaminophen (From Vicodin) Adverse Reaction (Intermediate, Verified 04/09/25 13:00) Other hydrocodone (From Vicodin) Adverse Reaction (Intermediate, Verified 04/09/25 13:00) Other Medications ???Medication ???Instructions ???Recorded ???Confirmed ???Type multivitamin 1 tab PO DAILY 06/17/22 04/09/25 H istory ascorbate calcium (vitamin C) 500 500 mg PO DAILY 09/24/22 04/09/25 History mg tablet cholecalciferol (vitamin D3) 125 125 mcg PO DAILY 09/24/22 04/09/25 History mcg (5,000 unit) tablet flaxseed oil 1,000 mg capsule 1,000 mg PO DAILY 09/24/22 5 History budesonide-formoterol HFA 160 2 puff inhalation .Q4-6 PRN 04/09/25 Rx mcg-4.5 mcg/actuation aerosol shortness of breath or wheezing inhaler (Symbicort) #10.2 grams estradiol 1 mg tablet (Estrace) 1 mg PO DAILY #90 tabs 12/05/24 Rx duloxetine 60 mg capsule,delayed 60 mg PO BID #60 caps 12/07/2404/27 Rx release furosemide 20 mg tablet 20 mg PO BID #60 tabs 12/07/2404/27 Rx lidocaine-prilocaine 2.5 %-2.5 % 1 g topical .QID PRN pain #60 gram s 12/07/24 04/09/25 Rx topical cream dicyclomine 10 mg capsule 10 mg PO TID #30 caps 03/07/2504/27 Rx cetirizine 10 mg tablet (24Hour 10 mg PO DAILY PRN allergy symptom s 03/09/25 04/09/25 History Allergy) meloxicam 7.5 mg tablet 7.5 mg PO DAILY PRN pain 03/09/25 04/09/25 History naltrexone 8 mg-bupropion 90 mg 1 tab PO BID WT LOSS 03/09/25 07/0 04/27 History tablet,extended release (Contrave) potassium chloride 10 mEq 10 meq PO QHS 03/09/25 04/09/25 Hi story tablet,extended release metoprolol succinate 25 mg 25 mg PO DAILY #30 tabs 03/16/25 0 04/09/25 Rx tablet,extended release 24 hr baclofen 10 mg tablet 10 mg PO QDAY PRN muscle spasm #30 04/04/25 04/09/25 Rx tabs Subjective Details: Patient is a 59-year-old female who is being seen today for follow-up after recent cholecystectomy. She was concerned about her incisions and noted that some of the incisions were slightly open and 1 particular incision had a small amount of pus within it. She presents today to have these incisions reevaluated. She denies any fevers or chills Objective Details: She is alert and oriented x 3. She is in no acute distress. Abdomen is soft, nontender and nondistended. Her left upper quadrant incision is open slightly by about 3 mm. There is a small amount of purulent exudate. This was wiped away for the most part. This seems to be consistent with a stitch abscess. No suture was able to be retrieved. The umbilical incision appears completely intact. There was some mild separation of one of the other left sided trocar sites. The right sided trocar site appeared normal as well Coding Level of Care Code Global Post Op Diagnoses S/P cholecystectomy Z90.49 [facility] Medical History SVT (supraventricular tachycardia) Anxiety History of IBS History of stress test RUQ abdominal pain Wears glasses History of steroid therapy Back pain Non-smoker Colitis Leg cramps History of pain when walking History of edema Acute diarrhea Neuropathy of right foot Peripheral neuropathy Erythromelalgia Scoliosis Asthma Degenerative disc disease Depression Surgical History S/P cholecystectomy Hx of colonoscopy History of surgical procedure H/O tubal ligation S/P laparoscopic assisted vaginal hysterectomy (LAVH) delivery delivered Family History Other Adopted Social History adopted: Yes household members: spouse current occupational status: employed current occupation: [employer] Smoking Status: Never smoker Electronic Cigarette Use: not used alcohol intake: current alcohol intake frequency: holidays/special occasions only details: social substance use type: does not use caffeine: (more content not included)... Normal [facility] Cardiology Visit Reporton Cardiology Visit Report [facility] [address] [place] [address] OFFICE VISIT Date of Service: 03/29/25 MR#: [id number] Acct: [id number] Name: MORENO VANESSA Rep #: [id number] : 1965 Provider: DEANNA Regalado Age/Sex: 59/F Location: [facility] Status: Signed HPI HPI History of Present Illness Details: Moreno Vanessa is a 59-year-old female that had concerns of wide-complex tachycardia following a lapchole Dr. Lacy was consulted. It was felt that the rhythm started out as PAC with an aberrant conduction and went into notable tachycardia then narrowed up with a normal conduction in the wide- complex tachycardia. She did convert to normal rhythm with adenosine. He did not feel that this was sinus tachycardia. It was felt that her rhythm was SVT with aberrancy. She was started on metoprolol succinate 25 mg daily. Pt notes that she has some chest heaviness today. She was also lightheaded and dizzy. She does burp with this. She took her metoprolol and did feel better. In looking back she has had these before. But has not felt that her heart wass racing. With her symptoms her HR was normal. Intake Vital Signs 03/16/25 10:34 03/29/25 09:37 Height 5 ft 9 in 5 ft 9 in Weight: 200 lb BMI 29.5 BP 103/67 Blood Pressure Location Lt brachial Position Sitting Respiration 18 Pulse 76 Pulse Source Monitor Intake Visit Reasons: Tachycardia [facility] 03/15 Product Marketing Executive Required: No Accompanied by: Self Is patient in pain?: No Allergies Sulfa (Sulfonamide Antibiotics) Allergy (Mild, Verified 03/29/25 09:37) rash acetaminophen (From Vicodin) Adverse Reaction (Intermediate, Verified 03/29/25 09:37) Other hydrocodone (From Vicodin) Adverse Reaction (Intermediate, Verified 03/29/25 09:37) Other Medications ???Medication ???Instructions ???Recorded ???Confirmed ???Type multivitamin 1 tab PO DAILY 06/17/22 03/29/25 H istory ascorbate calcium (vitamin C) 500 500 mg PO DAILY 09/24/22 03/29/25 History mg tablet cholecalciferol (vitamin D3) 125 125 mcg PO DAILY 09/24/22 03/29/25 History mcg (5,000 unit) tablet flaxseed oil 1,000 mg capsule 1,000 mg PO DAILY 09/24/22 5 History budesonide-formoterol HFA 160 2 puff inhalation .Q4-6 PRN 03/29/25 Rx mcg-4.5 mcg/actuation aerosol shortness of breath [...] .QID PRN pain #60 gram s 12/07/24 03/29/25 Rx topical cream baclofen 10 mg tablet 10 mg PO QDAY PRN muscle spasm #30 01/16/25 03/29/25 Rx tabs dicyclomine 10 mg capsule 10 mg PO TID #30 caps 03/07/25 Rx cetirizine 10 mg tablet (24Hour 10 mg PO DAILY PRN allergy symptom s 03/09/25 03/29/25 History Allergy) meloxicam 7.5 mg tablet 7.5 mg PO DAILY PRN pain 03/09/25 03/29/25 History naltrexone 8 mg-bupropion 90 mg 1 tab PO BID WT LOSS 03/09/25 06/03/28 History tablet,extended release (Contrave) potassium chloride 10 mEq 10 meq PO QHS 03/09/25 03/29/25 Hi story tablet,extended release oxycodone-acetaminophen 5 mg-325 1 tab PO Q8H PRN pain 4 days #10 0 03/15/25 03/29/25 Rx mg tablet (Percocet) tabs metoprolol succinate 25 mg 25 mg PO DAILY #30 tabs 03/16/25 0 03/29/25 Rx tablet,extended release 24 hr Have you fallen in the past year?: No PFSH Medical History Anxiety History of IBS History of stress test RUQ abdominal pain Wears glasses History of steroid therapy Back pain Non-smoker Colitis Leg cramps History of pain when walking History of edema Acute diarrhea Neuropathy of right foot Peripheral neuropathy Erythromelalgia Scoliosis Asthma Degenerative disc disease Depression Surgical History S/P cholecystectomy Hx of colonoscopy History of surgical procedure H/O tubal ligation S/P laparoscopic assisted vaginal hysterectomy (LAVH) delivery delivered Family History Other Adopted Social History adopted: Yes household members: spouse current occupational status: employed current occupation: [employer] Smoking Status: Never smoker Electronic Cigarette Use: not used alcohol intake: current alcohol intake frequency: holidays/special occasions only details: social substance use type: does not use caffeine: Yes (more content not included)... Normal [facility] Surgery Visit Reporton 03-28 Surgery Visit Report [facility] [address] [place] [address] OFFICE VISIT Date of Service: 03/28/25 MR#: [id number] Acct: [id number] Name: MORENO VANESSA Rep #: [id number] : 1965 Provider: Dr. Fernando blakely MD Age/Sex: 59/F Location: [facility] Status: Signed Intake Vital Signs 03/15/25 11:17 03/16/25 10:34 Height 5 ft 9 in 5 ft 9 in Intake Visit Reasons: f/u lap rachel Chief Complaint: f/u lap rachel Is patient in pain?: No Allergies Sulfa (Sulfonamide Antibiotics) Allergy (Mild, Verified 03/28/25 14:19) rash acetaminophen (From Vicodin) Adverse Reaction (Intermediate, Verified 03/28/25 14:19) Other hydrocodone (From Vicodin) Adverse Reaction (Intermediate, Verified 03/28/25 14:19) Other Medications ???Medication ???Instructions ???Recorded ???Confirmed ???Type multivitamin 1 tab PO DAILY 06/17/22 03/28/25 H istory ascorbate calcium (vitamin C) 500 500 mg PO DAILY 09/24/22 03/28/25 History mg tablet cholecalciferol (vitamin D3) 125 125 mcg PO DAILY 09/24/22 03/28/25 History mcg (5,000 unit) tablet flaxseed oil 1,000 mg capsule 1,000 mg PO DAILY 09/24/22 5 History budesonide-formoterol HFA 160 2 puff inhalation .Q4-6 PRN 03/28/25 Rx mcg-4.5 mcg/actuation aerosol shortness of breath [...] .QID PRN pain #60 gram s 12/07/24 03/28/25 Rx topical cream baclofen 10 mg tablet 10 mg PO QDAY PRN muscle spasm #30 01/16/25 03/28/25 Rx tabs dicyclomine 10 mg capsule 10 mg PO TID #30 caps 03/07/25 Rx cetirizine 10 mg tablet (24Hour 10 mg PO DAILY PRN allergy symptom s 03/09/25 03/28/25 History Allergy) meloxicam 7.5 mg tablet 7.5 mg PO DAILY PRN pain 03/09/25 03/28/25 History naltrexone 8 mg-bupropion 90 mg 1 tab PO BID WT LOSS 03/09/2503/05 History tablet,extended release (Contrave) potassium chloride 10 mEq 10 meq PO QHS 03/09/25 03/28/25 Hi story tablet,extended release oxycodone-acetaminophen 5 mg-325 1 tab PO Q8H PRN pain 4 days #10 0 03/15/25 03/28/25 Rx mg tablet (Percocet) tabs metoprolol succinate 25 mg 25 mg PO DAILY #30 tabs 03/16/25 0 03/28/25 Rx tablet,extended release 24 hr Subjective Details: The patient is a 59-year-old female status post a recent robotic cholecystectomy. Immediately following her surgery she had a brief episode of SVT which was broken with adenosine. She subsequently was admitted to the ICU overnight for observation and cardiology consultation. She is doing well since surgery. She is on metoprolol daily. She states that she is following up with cardiology tomorrow. She denies any further heart palpitations or other symptoms. Overall she is doing well. She admits to some mild incisional soreness. All of her preoperative symptoms of right upper quadrant pain have essentially resolved with surgery Objective Details: She is alert and oriented x 3. She is in no acute distress. Abdomen is soft, nontender nondistended. Incisions are healing well. No signs of erythema or infection. Coding Level of Care Code Global Post Op Diagnoses S/P cholecystectomy Z90.49 [facility] Medical History (Updated 03/21/25 @ 00:00 by Karen Pelletier) Anxiety History of IBS History of stress test RUQ abdominal pain Wears glasses History of steroid therapy Back pain Non-smoker Colitis Leg cramps History of pain when walking History of edema Acute diarrhea Neuropathy of right foot Peripheral neuropathy Erythromelalgia Scoliosis Asthma Degenerative disc disease Depression Surgical History (Updated 03/28/25 @ 14:20 by Shanti Coronado) S/P cholecystectomy Hx of colonoscopy History of surgical procedure H/O tubal ligation S/P laparoscopic assisted vaginal hysterectomy (LAVH) delivery delivered Family History Other Adopted Social History adopted: Yes household members: spouse current occupational status: employed current occupation: [employer] Smoking Status: Never smoker Electronic Cigarette Use: not used alcohol intake: current alcohol intake frequency: holidays/special occasions only details: social substance use type: does not use caffeine: Yes what type of physical activity do you participate in: none seatbelt use: always do you feel safe at home: Yes additional social hi (more content not included)... Normal [facility] Anion gap in Serum or Plasma Ordered By: Sidney Gregg on 03-16-2025 Anion gap [Moles/Vol] 8 mmol/L 02-15 [facility] BUN/creatinine ratioOrdered By: Sidney Gregg on 03-16-2025 Urea nitrogen/Creatinine [Mass ratio] 18.1 mg/mg - [facility] Basic Metabolic Profile (BMP )on 03-16-2025 BUN/CRE 18.1 RATIO Normal - [facility] Comment on above: Performed By: #### L 501.9520, L501.5200, L500.2500 #### [facility] [address] [place], [address] Calcium [Mass/Vol] 8.5 mg/dL Normal 7.6-11.0 [facility] Comment on above: Performed By: #### L 501.9520, L501.5200, L500.2500 #### [facility] [address] [place], [address] Chloride [Moles/Vol] 107 mmol/L Normal 98-108 [facility] Comment on above: Performed By: #### L 501.9520, L501.5200, L500.2500 #### [facility] [address] [place], [address] CO2 [Moles/Vol] 25.8 mmol/L Normal 21.0-32.0 [facility] Comment on above: Performed By: #### L 501.9520, L501.5200, L500.2500 #### [facility] [address] [place], [address] Creatinine [Mass/Vol] 0.72 mg/dL Normal 0.70-1.20 [facility] Comment on above: Performed By: #### L 501.9520, L501.5200, L500.2500 #### [facility] [address] [place], [address] ECRCL 100.36 ml/min Normal 50-250 [facility] Comment on above: Performed By: #### L 501.9520, L501.5200, L500.2500 #### [facility] [address] [place], [address] GAP 8 Normal 5-15 [facility] Comment on above: Performed By: #### L 501.9520, L501.5200, L500.2500 #### [facility] [address] [place], [address] GFR/1.73 sq M.predicted among non-blacks MDRD (S/P/Bld) [Vol rate/Area] 95 mL/min/{1.73_m2} Normal >60 [facility] Comment on above: Result Comment: mL/m in/1.73m2 CKD-EPI Creatinine Equation (2020) Performed By: #### L 501.9520, L501.5200, L500.2500 #### [facility] [address] [place], [address] Glucose [Mass/Vol] 113 mg/dL High 70-99 [facility] Comment on above: Performed By: #### L 501.9520, L501.5200, L500.2500 #### [facility] [address] [place], [address] Potassium [Moles/Vol] 3.9 mmol/L Normal 3.3-5.1 [facility] Comment on above: Performed By: #### L 501.9520, L501.5200, L500.2500 #### [facility] [address] [place], [address] Sodium [Moles/Vol] 140 mmol/L Normal 133-145 [facility] Comment on above: Performed By: #### L 501.9520, L501.5200, L500.2500 #### [facility] [address] [place], [address] Urea nitrogen [Mass/Vol] 13 mg/dL Normal 4-19 [facility] Comment on above: Performed By: #### L 501.9520, L501.5200, L500.2500 #### [facility] [address] [place], [address] Carbon dioxide, total [Moles /volume] in Central venous bloodOrdered By: Sidney Gregg on 03-16-2025 CO2 [Moles/Vol] 25.8 mmol/L 21.0-32.0 [facility] Chloride assayOrdered By: Aroldo Gregg on 03-16-2025 Chloride [Moles/Vol] 107 mmol/L 98-108 [facility] Glomerular filtration rate ( GFR) estimation/1.73 sq m using serum, plasma, or whole bOrdered By: Sidney Gregg on 03-16-2025 GFR/1.73 sq M.predicted among non-blacks MDRD (S/P/Bld) [Vol rate/Area] 95 mL/min/{1.73_m2} >60 [facility] Comment on above: mL/min/1.73m2 CKD-EP I Creatinine Equation (2020) Magnesiumon 03-16-2025 Magnesium [Mass/Vol] 2.3 mg/dL High 1.5-2.2 [facility] Comment on above: Performed By: #### L 501.9520, L501.5200, L500.2500 ####[facility] [address] [place], [address] Magnesium measurement (mass/ volume)Ordered By: Sidney Gregg on 03-16-2025 Magnesium (Unsp spec) [Mass/Vol] 2.3 mg/dL High 1.5-2.2 [facility] Potassium measurement (mass/ volume)Ordered By: Sidney Gregg on 03-16-2025 Potassium (Unsp spec) [Mass/Vol] 3.9 mmol/L 3.3-5.1 [facility] Serum creatinine measurement (mass/volume)Ordered By: Sidney Gregg on 03-16-2025 Creatinine [Mass/Vol] 0.72 mg/dL 0.70-1.20 [facility] Serum glucose measurement (m ass/volume)Ordered By: Sidney Gregg on 03-16-2025 Glucose [Mass/Vol] 113 mg/dL High 70-99 [facility] Serum or plasma calcium baljit urement (mass/volume)Ordered By: Sidney Gregg on 03-16-2025 Calcium [Mass/Vol] 8.5 mg/dL 7.6-11.0 [facility] Serum or plasma urea nitroge n measurement (mass/volume)Ordered By: Sidney Gregg on 03-16-2025 Urea nitrogen [Mass/Vol] 13 mg/dL 4-19 [facility] Sodium levelOrdered By: Sidney Gregg on 03-16-2025 Sodium [Moles/Vol] 140 mmol/L 133-145 [facility] TSH DL <= 0.005 mIU/L QnOrde red By: Sidney Gregg on 03-16-2025 TSH Qn 0.797 uIU/mL 0.300-4.20 0 [facility] Thyroid Stim Hormone (TSH)on 03-16-2025 TSH 0.797 uIU/mL Normal 0.300-4.20 0 [facility] Comment on above: Performed By: #### L 501.9520, L501.5200, L500.2500 ####[facility] [address] [place], [address] Absolute lymphocyte countOrd ered By: Sidney Jetermarlee on 03-15-2025 Lymphocytes Auto (Unsp spec) [#/Vol] 0.81 10*3/uL Low 0.83-4.51 [facility] Absolute neutrophil countOrd ered By: Sidney Jetermarlee on 03-15-2025 Neutrophils (Bld) [#/Vol] 11.3 10*3/uL High 2.0-7.7 [facility] Automated lymphocyte count a s percentage of total leukocytesOrdered By: Sidney Gregg on 03-15-2025 Lymphocytes/100 WBC Auto (Unsp spec) 6.5 % Low 19-41 [facility] Basophil percentageOrdered B y: Sidney Gregg on 03-15-2025 Basophils/100 WBC (Bld) 0.5 % 0-1 [facility] Bilirubin, totalOrdered By: Sidney Gregg on 03-15-2025 Bilirubin [Mass/Vol] 0.25 mg/dL 0.00-1.30 [facility] CBC W/Diff, Automatedon 03-04 Absolute Lymph 0.81 X10 3/uL Low 0.83-4.51 [facility] Comment on above: Order Comment: Comme nts: POST-CODE Performed By: #### L 500.4050, L100.0100, L300.8000 #### [facility] [address] [facility] [address] Absolute Neut 11.3 X10 3/uL High 2.0-7.7 [facility] Comment on above: Order Comment: Comme nts: POST-CODE Performed By: #### L 500.4050, L100.0100, L300.8000 #### [facility] [address] [place], [address] Basophils/100 WBC (Bld) 0.5 % Normal 0-1 [facility] Comment on above: Order Comment: Comme nts: POST-CODE Performed By: #### L 500.4050, L100.0100, L300.8000 #### [facility] [address] [place], [address] Eosinophils/100 WBC (Bld) 1.1 % Normal 0-5 [facility] Comment on above: Order Comment: Comme nts: POST-CODE Performed By: #### L 500.4050, L100.0100, L300.8000 #### [facility] [address] [place], [address] Erythrocyte distribution width (RBC) [Ratio] 12.3 % Normal 11.6-14.6 [facility] Comment on above: Order Comment: Comme nts: POST-CODE Performed By: #### L 500.4050, L100.0100, L300.8000 #### [facility] [address] [place], [address] Hematocrit (Bld) [Volume fraction] 38.2 % Normal 37-47 [facility] Comment on above: Order Comment: Comme nts: POST-CODE Performed By: #### L 500.4050, L100.0100, L300.8000 #### [facility] [address] [place], [address] Hemoglobin (Bld) [Mass/Vol] 12.7 g/dL Normal 12.0-15.0 [facility] Comment on above: Order Comment: Comme nts: POST-CODE Performed By: #### L 500.4050, L100.0100, L300.8000 #### [facility] [address] [place], [address] IG% 0.400 Normal 0.0-0.9 [facility] Comment on above: Order Comment: Comme nts: POST-CODE Result Comment: IG% - Immature Granulocytes (promyelocytes, myelocytes and metamyelocytes) > 1% indicates that a LEFT SHIFT is Present. Performed By: #### L 500.4050, L100.0100, L300.8000 #### [facility] [address] [place], [address] Lymphocytes/100 WBC (Bld) 6.5 % Low 19-41 [facility] Comment on above: Order Comment: Comme nts: POST-CODE Performed By: #### L 500.4050, L100.0100, L300.8000 #### [facility] [address] [place], [address] MCH (RBC) [Entitic mass] 31.4 pg Normal 27.0-32.0 [facility] Comment on above: Order Comment: Comme nts: POST-CODE Performed By: #### L 500.4050, L100.0100, L300.8000 #### [facility] [address] [place], [address] MCHC (RBC) [Mass/Vol] 33.2 g/dL Normal 32-36 [facility] Comment on above: Order Comment: Comme nts: POST-CODE Performed By: #### L 500.4050, L100.0100, L300.8000 #### [facility] [address] [place], [address] MCV (RBC) [Entitic vol] 94.6 fL Normal 81-99 [facility] Comment on above: Order Comment: Comme nts: POST-CODE Performed By: #### L 500.4050, L100.0100, L300.8000 #### [facility] [address] [place], [address] Monocytes/100 WBC (Bld) 1.8 % Normal 0-10 [facility] Comment on above: Order Comment: Comme nts: POST-CODE Performed By: #### L 500.4050, L100.0100, L300.8000 #### [facility] [address] [place], [address] Neutrophils/100 WBC (Bld) 89.7 % High 47-70 [facility] Comment on above: Order Comment: Comme nts: POST-CODE Performed By: #### L 500.4050, L100.0100, L300.8000 #### [facility] [address] [place], [address] Nucleated RBC (Bld) [#/Vol] 0 10*3/uL Normal 0-5 [facility] Comment on above: Order Comment: Comme nts: POST-CODE Performed By: #### L 500.4050, L100.0100, L300.8000 #### [facility] [address] [place], [address] Platelet mean volume (Bld) [Entitic vol] 9.0 fL Normal 6.2-12.0 [facility] Comment on above: Order Comment: Comme nts: POST-CODE Performed By: #### L 500.4050, L100.0100, L300.8000 #### [facility] [address] [place], [address] Platelets (Bld) [#/Vol] 233 10*3/uL Normal 150-450 [facility] Comment on above: Order Comment: Comme nts: POST-CODE Performed By: #### L 500.4050, L100.0100, L300.8000 #### [facility] [address] [place], [address] RBC (Bld) [#/Vol] 4.04 10*6/uL Low 4.2-5.4 [facility] Comment on above: Order Comment: Comme nts: POST-CODE Performed By: #### L 500.4050, L100.0100, L300.8000 #### [facility] [address] [place], [address] RDW SD 43.4 fl Normal 35.1-43.9 [facility] Comment on above: Order Comment: Comme nts: POST-CODE Performed By: #### L 500.4050, L100.0100, L300.8000 #### [facility] [address] [place], [address] WBC (Bld) [#/Vol] 12.5 10*3/uL High 4.4-11.0 [facility] Comment on above: Order Comment: Comme nts: POST-CODE Performed By: #### L 500.4050, L100.0100, L300.8000 #### [facility] [address] [place], [address] Comprehensive Metabolic Prof ilon 03-15-2025 Albumin [Mass/Vol] 3.8 g/dL Normal 3.4-4.8 [facility] Comment on above: Order Comment: POST- CODE Performed By: #### L 500.4050, L100.0100, L300.8000 #### [facility] [address] [place], [address] Albumin/Globulin [Mass ratio] 1.8 {ratio} Normal 0.9-2.4 [facility] Comment on above: Order Comment: POST- CODE Performed By: #### L 500.4050, L100.0100, L300.8000 #### [facility] [address] [place], [address] ALK PHOS 80 U/L Normal 35-104 [facility] Comment on above: Order Comment: POST- CODE Performed By: #### L 500.4050, L100.0100, L300.8000 #### [facility] [address] [place], [address] ALT [Catalytic activity/Vol] 14 U/L Normal <=34 [facility] Comment on above: Order Comment: POST- CODE Performed By: #### L 500.4050, L100.0100, L300.8000 #### [facility] [address] [place], [address] AST [Catalytic activity/Vol] 18 U/L Normal <=31 [facility] Comment on above: Order Comment: POST- CODE Performed By: #### L 500.4050, L100.0100, L300.8000 #### [facility] [address] [place], [address] Bilirubin [Mass/Vol] 0.25 mg/dL Normal 0.00-1.30 [facility] Comment on above: Order Comment: POST- CODE Performed By: #### L 500.4050, L100.0100, L300.8000 #### [facility] [address] [place], [address] BUN/CRE 17.1 RATIO Normal 10-20 [facility] Comment on above: Order Comment: POST- CODE Performed By: #### L 500.4050, L100.0100, L300.8000 #### [facility] [address] [place], [address] Calcium [Mass/Vol] 8.3 mg/dL Normal 7.6-11.0 [facility] Comment on above: Order Comment: POST- CODE Performed By: #### L 500.4050, L100.0100, L300.8000 #### [facility] [address] [place], [address] Chloride [Moles/Vol] 106 mmol/L Normal 98-108 [facility] Comment on above: Order Comment: POST- CODE Performed By: #### L 500.4050, L100.0100, L300.8000 #### [facility] [address] [place], [address] CO2 [Moles/Vol] 25.9 mmol/L Normal 21.0-32.0 [facility] Comment on above: Order Comment: POST- CODE Performed By: #### L 500.4050, L100.0100, L300.8000 #### [facility] [address] [place], [address] Creatinine [Mass/Vol] 0.82 mg/dL Normal 0.70-1.20 [facility] Comment on above: Order Comment: POST- CODE Performed By: #### L 500.4050, L100.0100, L300.8000 #### [facility] [address] [place], [address] ECRCL 86.80 ml/min Normal 50-250 [facility] Comment on above: Order Comment: POST- CODE Performed By: #### L 500.4050, L100.0100, L300.8000 #### [facility] [address] [place], [address] GAP 8 Normal 5-15 [facility] Comment on above: Order Comment: POST- CODE Performed By: #### L 500.4050, L100.0100, L300.8000 #### [facility] [address] [place], [address] GFR/1.73 sq M.predicted among non-blacks MDRD (S/P/Bld) [Vol rate/Area] 81 mL/min/{1.73_m2} Normal >60 [facility] Comment on above: Order Comment: POST- CODE Result Comment: mL/m in/1.73m2 CKD-EPI Creatinine Equation (2020) Performed By: #### L 500.4050, L100.0100, L300.8000 #### [facility] [address] [place], [address] Globulin (S) [Mass/Vol] 2.2 g/dL Normal 2.2-4.2 [facility] Comment on above: Order Comment: POST- CODE Performed By: #### L 500.4050, L100.0100, L300.8000 #### [facility] [address] [place], [address] Glucose [Mass/Vol] 133 mg/dL High 70-99 [facility] Comment on above: Order Comment: POST- CODE Performed By: #### L 500.4050, L100.0100, L300.8000 #### [facility] [address] [place], [address] Potassium [Moles/Vol] 4.4 mmol/L Normal 3.3-5.1 [facility] Comment on above: Order Comment: POST- CODE Performed By: #### L 500.4050, L100.0100, L300.8000 #### [facility] [address] [place], [address] Sodium [Moles/Vol] 141 mmol/L Normal 133-145 [facility] Comment on above: Order Comment: POST- CODE Performed By: #### L 500.4050, L100.0100, L300.8000 #### [facility] [address] [place], [address] T PROT 6.0 g/dL Normal 5.9-8.4 [facility] Comment on above: Order Comment: POST- CODE Performed By: #### L 500.4050, L100.0100, L300.8000 #### [facility] [address] [place], [address] Urea nitrogen [Mass/Vol] 14 mg/dL Normal 4-19 [facility] Comment on above: Order Comment: POST- CODE Performed By: #### L 500.4050, L100.0100, L300.8000 #### [facility] [address] [place], [address] Consultation - Cardiologyon 03-15-2025 Consultation - Cardiology [facility] Medical Records Department [address] [place] [address] Consultation - Cardiology 03/15/25 1755 MR#: [id number] Acct: [id number] Name: MORENO VANESSA Rep #: [id number] : 1965 59 From: Edgardo Lacy MD PCP: Dr. Jill Zelaya MD Status:ADM IN Location: ICU ICU02-1 Assessment Plan Assessment/Plan (1) Tachycardia: PLAN: The patient's wide-complex tachycardia appears to be SVT with a Lewis C. It was called on rhythm strip initiated by PAC in the same cycle length converted into a narrow complex tachycardia with exactly the same cycle length. This is consistent with SVT with a Lewis C that then narrows up to a normal conduction. This broke with adenosine which also supports a diagnosis of SVT. The patient has no significant structural heart disease at all. I would recommend that we treat her with low-dose metoprolol succinate 25 mg daily and I went over the utilization of Valsalva and other vagal tonic maneuvers. The patient should follow-up in the office in 4 to 6 weeks with one of our advanced practitioners Georgette Keating. PLAN: Plan 1. Will add metoprolol succinate 25 mg daily. 2. Follow-up with the [place] [facility] with Georgette Keating in 4 to 6 weeks. 3. As long the patient remains asymptomatic and free of any significant arrhythmias she should be able to be discharged in the morning. HPI Consult Data Date of Consult: 03/15/25 HPI Narrative Reason for Consultation: Wide-complex tachycardia in the PACU following lap rachel HPI Narrative: MORENO VANESSA, is a 59 F who presents in the PACU following lap cholecystectomy with a wide-complex tachycardia. In viewing the onset of the arrhythmia and the termination it appears the rhythm started with a PAC with an apparent conduction and went into a notable tachycardia that then narrowed up with a normal conduction in the narrow complex tachycardia. This was subsequently converted with adenosine to sinus rhythm. This does not appear to be ventricular tachycardia. The patient never lost consciousness and was aware of the whole time what was going on with the arrhythmia. The patient has no structural heart disease her echo done today showed a normal ejection fraction of 60% she had normal atrial sizes no significant valvular heart disease at all and a negative bubble study for PFO. She also has no significant risk factors for coronary artery disease. She is not hypertensive, her lipids are not elevated by her report and her HDL is high, she has never smoked, she is not diabetic. She is adopted and does not know her family history. The patient's had no recurrence of any wide-complex tachycardia since her admission. She denies any prior history of palpitations tachycardias or any type of cardiac history. She denies any syncope or near syncope. [facility] Medical History Anxiety History of IBS History of stress test RUQ abdominal pain Wears glasses History of steroid therapy Back pain Non-smoker Colitis Leg cramps History of pain when walking History of edema Acute diarrhea Neuropathy of right foot Peripheral neuropathy Erythromelalgia Scoliosis Asthma Degenerative disc disease Depression Home Medications ???Medication ???Instructions ???Recorded ???Last Taken ???Type multivitamin 1 tab PO DAILY 06/17/22 03/14/25 H istory ascorbate calcium (vitamin C) 500 500 mg PO DAILY 09/24/22 03/14/25 History mg tablet cholecalciferol (vitamin D3) 125 125 mcg PO DAILY 09/24/22 03/14/25 History mcg (5,000 unit) tablet flaxseed oil 1,000 mg capsule 1,000 mg PO DAILY 09/24/22 5 History budesonide-formoterol HFA 160 2 puff inhalation .Q4-6 PRN Unknown Rx mcg-4.5 mcg/actuation aerosol shortness of breath or wheezing inhaler (Symbicort) #10.2 grams estradiol 1 mg tablet (Estrace) 1 mg PO DAILY #90 tabs 12/05/24 Rx duloxetine 60 mg capsule,delayed 60 mg PO BID #60 caps 12/07/2408/28 Rx release furosemide 20 mg tablet 20 mg PO BID #60 tabs 12/07/2408/28 Rx lidocaine-prilocaine 2.5 %-2.5 % 1 g topical .QID PRN pain #60 gram s 12/07/24 Unknown Rx topical cream baclofen 10 mg tablet 10 mg PO QDAY PRN muscle spasm #30 01/16/25 Unknown Rx tabs dicyclomine 10 mg capsule 10 mg PO TID #30 caps 03/07/25 Unk nown Rx cetirizine 10 mg tablet (24Hour 10 mg PO DAILY PRN allergy symptom s 03/09/25 03/14/25 History Allergy) meloxicam 7.5 mg tablet 7.5 mg PO DAILY PRN pain 03/09/25 03/14/25 History naltrexone 8 mg-bupropion 90 mg 1 tab PO BID WT LOSS 03/09/2506/28 History tablet,extended release (Contrave) potassium chloride 10 mEq 10 meq PO QHS 03/09/25 03/14/25 Hi story tablet,extended release oxycodone-acetaminophen 5 mg-325 1 tab (more content not included)... Normal [facility] D-Dimer Quantitative (DVT/PE )on 03-15-2025 D-DIMER QUANT 0.38 FEU/ug/m Normal 0.27-0.49 [facility] Comment on above: Order Comment: Comme nts: POST-CODE Result Comment: NORM AL D-Dimer level (<0.50) indicates no DVT or PE. Performed By: #### L 500.4050, L100.0100, L300.8000 #### [facility] [address] [place], [address] Discharge Instructionon 03-04 Discharge Instruction [facility] Medical Records Department [address] [place] [address] Instructions for Home/Discharge Instructions 03/15/25 0933 MR#: [id number] Acct: [id number] Name: MORENO VANESSA Rep #: [id number] : 1965 59 From: Fernando Ontiveros MD PCP: Dr. Jill Zelaya MD [place] [facility] [place] Instructions Diet Discharge Diet: Light diet - advance as tolerated Activity Discharge Activity: May Shower May shower in (days): 1 Ice area for (Minutes): 30 Lifting Restrictions: No lifting pushing or pulling more than 20 pounds for 3 to 4 weeks Dressing / Incision Call your doctor if your incision/area has: Continuous Slow Oozing, Sudden Increased Bleeding, Increased Pain/ Swelling, Increased Redness, Foul Smelling Discharge and Swelling at the incision site Call your doctor if you observe: Fever of 101 or Higher Cleanse incision/area with: Soap Water Follow Up Care Please Follow Up With: Fernando Ontiveros MD When: 2 weeks. Please call office to schedule appointment Test Results: Test results from this visit will be discussed in further detail at your follow-up appointment, if applicable. Discharge Plan Admission Primary Reason for Your Visit: Symptomatic cholelithiasis Attending Provider: Fernando Ontiveros Primary Care Provider: Jill Zelaya Instructions Print Language: Malawian Discharge Orders/Prescriptions Prescriptions: New oxycodone-acetaminophen [Percocet] 5-325 mg tablet 1 tab PO Q8H PRN (Reason: pain) 4 Days Qty: 10 0RF Continued multivitamin Tablet 1 tab PO DAILY flaxseed oil 1,000 mg capsule 1,000 mg PO DAILY Rx Instructions: administer with a meal cholecalciferol (vitamin D3) 125 mcg (5,000 unit) tablet 125 mcg PO DAILY ascorbate calcium (vitamin C) 500 mg tablet 500 mg PO DAILY budesonide-formoterol [Symbicort] 160-4.5 mcg/actuation HFA aerosol inhaler 2 puff inhalation .Q4-6 PRN (Reason: shortness of breath or wheezing) Qty: 10.2 1RF furosemide 20 mg tablet 20 mg PO BID Qty: 60 7RF duloxetine 60 mg capsule,delayed release(DR/EC) 60 mg PO BID Qty: 60 7RF lidocaine-prilocaine 2.5-2.5 % cream 1 g topical .QID PRN (Reason: pain) Qty: 60 7RF Rx Instructions: Dispense two 30 gm tubes per month. dicyclomine 10 mg capsule 10 mg PO TID Qty: 30 1RF cetirizine [24Hour Allergy] 10 mg tablet 10 mg PO DAILY PRN (Reason: allergy symptoms) potassium chloride 10 mEq tablet extended release 10 meq PO QHS meloxicam 7.5 mg tablet 7.5 mg PO DAILY PRN (Reason: pain) Contrave 8-90 mg tablet extended release 1 tab PO BID Patient Comments: LAST DOSE WILL BE 03/13/25 FOR SURGERY ON 03/16/25 estradiol [Estrace] 1 mg tablet 1 mg PO DAILY Qty: 90 3RF baclofen 10 mg tablet 10 mg PO QDAY PRN (Reason: muscle spasm) Qty: 30 1RF Rx Instructions: TAKE 1 TABLET BY MOUTH NEEDED FOR PAIN daily; Other Ambulatory Orders: 12 Lead EKG (Routine) Timeframe: 20250313 Location: None Selected Ordered By: Dr. Warner Mahoney Referrals / Follow Up: Jill Zelaya MD [Primary Care Provider] - Disposition Disposition (needs filled in before D/C Order can be placed): Home, Self Care 03/15/25 9283 Fernando Ontiveros MD CC: Dr. Jill Zelaya MD Signed Normal [facility] Echo Completeon 03-15-2025 Echo Complete [facility] [place] [place] [address] [address] [place] [address] Echo Complete 03/15/25 1401 MR#: [id number] Acct: [id number] Name: MORENO VANESSA Rep #: [id number] : 1965 59 From: Alma Marques MD Attending Dr: Dr. Fernando Ontiveros MD Status: AD M IN Ordering Dr: Sidney Gregg DO Date: 03/15/25 Location: ICU Sex: F C Admitted: 03/15/25 Reason For Study Reason For Study: SVT/VT Procedure This was a 2D Doppler, Color Flow transthoracic echocardiogram. The study was technically difficult. Exam performed portable in ICU/CCU. Left Ventricle Normal size and thickness. The LV systolic function is normal. EF is 60 %. Unable to assess diastolic function based on available data. Right Ventricle Normal right ventricle. Atria The left and right atria are normal. Bubble contrast study suboptimal however appears negative for ASD/PFO. Mitral Valve Trivial mitral valve insufficiency. Tricuspid Valve Mild tricuspid valve insufficiency. RVSP estimated between 31-41 mmHg. Aortic Valve Trisinus/trileaflet aortic valve. Mild focal aortic valve calcification. Pulmonic Valve The pulmonic valve is not well visualized. Great Vessels Normal sized aortic root. Pericardium/Pleural No pericardial effusion. Medication Performed a rapid injection of agitated mix of 9 cc saline and 1cc air to assess for atrial septal defect. MMode/2D Measurements Calculations LVIDd: 5.5 cm IVSd: 0.88 cm Ao root diam: 3.3 cm LVIDs: 3.8 cm LVPWd: 0.96 cm RVDd: 2.5 cm FS: 31.4 % LAV(MOD-bp): 44.4 ml LVAd ap4: 26.3 cm2 SV(MOD-sp4): 50.4 ml LAV(MOD-bp) Indexed: 21.5 ml/m2 LVLd ap4: 7.1 cm SI(MOD-sp4): 24.4 ml/m2 LAV(MOD-sp2): 40.4 ml EDV(MOD-sp4): 78.6 ml LAV(MOD-sp4): 45.6 ml EDV(sp4-el): 82.2 ml LVAs ap4: 14.2 cm2 LVLs ap4: 6.0 cm ESV(MOD-sp4): 28.2 ml ESV(sp4-el): 28.6 ml EF(MOD-sp4): 64.1 % EF(sp4-el): 65.3 % SV(sp4-el): 53.7 ml LA A4 area: 16.1 cm2 LA dimension(2D): 3.8 cm RA A4 area: 9.8 cm2 TAPSE: 1.9 cm Doppler Measurements Calculations Lat Peak E' Renata: 6.7 cm/sec Med Peak E' Renata: 9.6 cm/sec MV V2 max: 80.7 cm/sec MV max P.6 mmHg MV V2 mean: 36.5 cm/sec MV mean P.66 mmHg MV V2 VTI: 13.9 cm MV P1/2t max renata: 59.5 cm/sec Ao V2 max: 121.1 cm/sec LV V1 max: 103.5 cm/sec MV P1/2t: 42.8 msec Ao max P.9 mmHg LV V1 max P.3 mmHg Ao V2 mean: 82.2 cm/sec LV V1 mean P.1 mmHg MV dec slope: 407.7 cm/sec2 Ao mean P.9 mmHg LV V1 mean: 69.1 cm/sec MVA(P1/2t): 5.1 cm2 Ao V2 VTI: 24.4 cm LV V1 VTI: 19.3 cm AV (velocity ratio): 0.79 PA V2 max: 73.8 cm/sec TR max renata: 256.0 cm/sec PA V2 mean: 45.8 cm/sec TR max P.2 mmHg PA V2 VTI: 11.8 cm ECHO/Echo Complete Interpretation Summary The study was technically difficult. The LV systolic function is normal. EF is 60 %. Mild tricuspid valve insufficiency. RVSP estimated between 31-41 mmHg. Mild focal aortic valve calcification. Ordering Physician: Sidney Gregg Referring Physician: Fernando Ontiveros/Jill Zelaya Performed By: Magi Gallagher, MAYRACS, RVT 03/15/25 1532 Date Alma Marques MD CC: Dr. Jill Zelaya MD; Dr. Sidney Gregg DO; Dr. Fernando Ontiveros MD Date Dictated: 03/15/25 1401 Date Transcribed: 03/15/25 1532 Market Risk Manager: Signed Normal [facility] Echocardiogram study reportO rdered By: Alma Marques on 03-15-2025 Study report [facility] Cardiovascular Services [address] [place] [address] Echo Complete 03/15/25 1401 MR#: [id number] Acct: [id number] Name: MORENO VANESSA Rep #:[id number] : 1965 59 From: Alma Marques MD Attending Dr: Dr. Fernando Ontiveros MD Status: ADM IN Ordering Dr: Sidney Gregg DO Date: Location: ICU Sex: F C Admitted: 03/15/25 Reason For Study Reason For Study: SVT/VT Procedure This was a 2D Doppler, Color Flow transthoracic echocardiogram. The study was technically difficult. Exam performed portable in ICU/CCU. Left Ventricle Normal size and thickness. The LV systolic function is normal. EF is 60 %. Unable to assess diastolic function based on available data. Right Ventricle Normal right ventricle. Atria The left and right atria are normal. Bubble contrast study suboptimal however appears negative for ASD/PFO. Mitral Valve Trivial mitral valve insufficiency. Tricuspid Valve Mild tricuspid valve insufficiency. RVSP estimated between 31-41 mmHg. Aortic Valve Trisinus/trileaflet aortic valve. Mild focal aortic valve calcification. Pulmonic Valve The pulmonic valve is not well visualized. Great Vessels Normal sized aortic root. Pericardium/Pleural No pericardial effusion. Medication Performed a rapid injection of agitated mix of 9 cc saline and 1cc air to assessfor atrial septal defect. MMode/2D Measurements & Calculations LVIDd: 5.5 cm IVSd: 0.88 cm Ao root diam: 3.3 cm LVIDs: 3.8 cm LVPWd: 0.96 cm RVDd: 2.5 cm FS: 31.4 % LAV(MOD-bp): 44.4 ml LVAd ap4: 26.3 cm2 SV(MOD-sp4): 50.4 ml LAV(MOD-bp) Indexed: 21.5 ml/m2 LVLd ap4: 7.1 cm SI(MOD-sp4): 24.4 ml/m2 LAV(MOD-sp2): 40.4 ml EDV(MOD-sp4): 78.6 ml LAV(MOD-sp4): 45.6 ml EDV(sp4-el): 82.2 ml LVAs ap4: 14.2 cm2 LVLs ap4: 6.0 cm ESV(MOD-sp4): 28.2 ml ESV(sp4-el): 28.6 ml EF(MOD-sp4): 64.1 % EF(sp4-el): 65.3 % SV(sp4-el): 53.7 ml LA A4 area: 16.1 cm2 LA dimension(2D): 3.8 cm RA A4 area: 9.8 cm2 TAPSE: 1.9 cm Doppler Measurements & Calculations Lat Peak E' Renata: 6.7 cm/sec Med Peak E' Renata: 9.6 cm/sec MV V2 max: 80.7 cm/sec MV max P.6 mmHg MV V2 mean: 36.5 cm/sec MV mean P.66 mmHg MV V2 VTI: 13.9 cm MV P1/2t max renata: 59.5 cm/sec Ao V2 max: 121.1 cm/sec LV V1 max: 103.5 cm/sec MV P1/2t: 42.8 msec Ao max P.9 mmHg LV V1 max P.3 mmHg Ao V2 mean: 82.2 cm/sec LV V1 mean P.1 mmHg MV dec slope: 407.7 cm/sec2 Ao mean P.9 mmHg LV V1 mean: 69.1 cm/sec MVA(P1/2t): 5.1 cm2 Ao V2 VTI: 24.4 cm LV V1 VTI: 19.3 cm AV (velocity ratio): 0.79 PA V2 max: 73.8 cm/sec TR max renata: 256.0 cm/sec PA V2 mean: 45.8 cm/sec TR max P.2 mmHg PA V2 VTI: 11.8 cm ECHO/Echo Complete Interpretation Summary The study was technically difficult. The LV systolic function is normal. EF is 60 %. Mild tricuspid valve insufficiency. RVSP estimated between 31-41 mmHg. Mild focal aortic valve calcification. Ordering Physician: Sidney Gregg Referring Physician: Fernando Ontiveros/Jill Zelaya Performed By: Magi Gallagher, RDCS, RVT 03/15/25 1532 Date _ Alma Marques MD CC: Dr. Jill Zelaya MD; Dr. Sidney Gregg DO; Dr. Fernando Ontiveros MD ~ Date Dictated: 03/15/25 1401 Date Transcribed: 03/15/25 1532 Market Risk Manager: Signed [facility] Work Phone: Eosinophil percentageOrdered By: Sidney Gregg on 03-15-2025 Eosinophils/100 WBC (Bld) 1.1 % 0-5 [facility] Erythrocyte distribution wid th ratioOrdered By: Sidney Gregg on 03-15-2025 Erythrocyte distribution width (RBC) [Ratio] 12.3 % 11.6-14.6 [facility] Erythrocyte distribution wid th standard deviationOrdered By: Sidney Gregg on 03-15-2025 Erythrocyte distribution width (RBC) [Ratio] 43.4 fl 35.1-43.9 [facility] H AND P Exam - Hospitaliston 03-15-2025 H&P Exam - Hospitalist [facility] Medical Records Department [address] [place] [address] H P Exam - Hospitalist 03/15/25 1637 MR#: [id number] Acct: [id number] Name: MORENO VANESSA Rep #: [id number] : 1965 59 From: Sidney Gregg DO PCP: Dr. Jill Zelaya MD Status:ADM IN Location: ICU ICU02-1 HPI - General General Date of Admission: 03/15/25 Date of Service: 03/15/25 Chief Complaint: RUQ pain HPI Narrative MORENO VANESSA, is a 59 F who presents for laparoscopic cholecystectomy. Patient underwent the procedure this morning and was doing well and then was cleaning abdominal pain. She was then noted to be in wide-complex tachycardia concerning for VT. Patient did not lose consciousness. A CODE BLUE was called and when I had arrived patient appeared to be in SVT. EKG confirmed SVT. Patient received 12 mg of adenosine and converted to normal sinus rhythm. Patient is otherwise feeling well other than the abdominal pain after surgery. Patient has never had any heart conditions in the past. [facility] Medical History Anxiety History of IBS History of stress test RUQ abdominal pain Wears glasses History of steroid therapy Back pain Non-smoker Colitis Leg cramps History of pain when walking History of edema Acute diarrhea Neuropathy of right foot Peripheral neuropathy Erythromelalgia Scoliosis Asthma Degenerative disc disease Depression Home Medications ???Medication ???Instructions ???Recorded ???Last Taken ???Type multivitamin 1 tab PO DAILY 06/17/22 03/14/25 H istory ascorbate calcium (vitamin C) 500 500 mg PO DAILY 09/24/22 03/14/25 History mg tablet cholecalciferol (vitamin D3) 125 125 mcg PO DAILY 09/24/22 03/14/25 History mcg (5,000 unit) tablet flaxseed oil 1,000 mg capsule 1,000 mg PO DAILY 09/24/22 5 History budesonide-formoterol HFA 160 2 puff inhalation .Q4-6 PRN Unknown Rx mcg-4.5 mcg/actuation aerosol shortness of breath or wheezing inhaler (Symbicort) #10.2 grams estradiol 1 mg tablet (Estrace) 1 mg PO DAILY #90 tabs 12/05/24 Rx duloxetine 60 mg capsule,delayed 60 mg PO BID #60 caps 12/07/2408/28 Rx release furosemide 20 mg tablet 20 mg PO BID #60 tabs 12/07/2408/28 Rx lidocaine-prilocaine 2.5 %-2.5 % 1 g topical .QID PRN pain #60 gram s 12/07/24 Unknown Rx topical cream baclofen 10 mg tablet 10 mg PO QDAY PRN muscle spasm #30 01/16/25 Unknown Rx tabs dicyclomine 10 mg capsule 10 mg PO TID #30 caps 03/07/25 Unk nown Rx cetirizine 10 mg tablet (24Hour 10 mg PO DAILY PRN allergy symptom s 03/09/25 03/14/25 History Allergy) meloxicam 7.5 mg tablet 7.5 mg PO DAILY PRN pain 03/09/25 03/14/25 History naltrexone 8 mg-bupropion 90 mg 1 tab PO BID WT LOSS 03/09/25 0606/28 History tablet,extended release (Contrave) potassium chloride 10 mEq 10 meq PO QHS 03/09/25 03/14/25 Hi story tablet,extended release oxycodone-acetaminophen 5 mg-325 1 tab PO Q8H PRN pain 4 days #10 0 03/15/25 Unknown Rx mg tablet (Percocet) tabs Allergy/AdvReac Type Severity Reaction Status Date / Time Sulfa (Sulfonamide Allergy Mild rash Verified 03/15/25 07:10 Antibiotics) acetaminophen (From Vicodin) AdvReac Intermediate Other Verified 03/15/25 07:10 hydrocodone (From Vicodin) AdvReac Intermediate Other Verified 03/15/25 07:10 Family History Other Adopted Surgical History Hx of colonoscopy History of surgical procedure H/O tubal ligation S/P laparoscopic assisted vaginal hysterectomy (LAVH) delivery delivered Social History adopted: Yes household members: spouse current occupational status: employed current occupation: [employer] Smoking Status: Never smoker Electronic Cigarette Use: not used alcohol intake: current alcohol intake frequency: holidays/special occasions only details: social substance use type: does not use caffeine: Yes what type of physical activity do you participate in: none seatbelt use: always do you feel safe at home: Yes additional social history: Christin RUBIO Narrative Denies any history of VTE nor lower extremity edema. All review of systems were negative except as mentioned above in the history of present illness and the other review of systems. Vital Signs Vital Signs Vital Signs: 03/15/25 07:12 03/15/25 07:12 03/15/25 07:58 Temperature 36.7 C 36.7 C Temperature Source Temporal Pulse Rate 82 82 Pulse Rate [3] Respiratory Rate 16 16 Respiratory Pattern Normal Blood Pressure 118/60 118/60 Blood Pressure [3] (more content not included)... Normal [facility] Hematocrit Auto (Bld) [Volum e fraction]Ordered By: Sidney Gregg on 03-15-2025 Hematocrit (Bld) [Volume fraction] 38.2 % 37-47 [facility] Hemoglobin measurementOrdere d By: Sidney Gregg on 03-15-2025 Hemoglobin (Bld) [Mass/Vol] 12.7 g/dL 12.0-15.0 [facility] Immature granulocytes/100 WB C Auto (Bld)Ordered By: Sidney Gregg on 03-15-2025 Immature granulocytes/100 WBC (Bld) 0.400 % 0.0-0.9 [facility] Comment on above: IG% - Immature Granu locytes (promyelocytes, myelocytes and metamyelocytes) > 1% indicates that a LEFT SHIFT is Present. L499.0042on 03-15-2025 Trop T High Sen 8 ng/L Normal <=14 [facility] Comment on above: Performed By: #### L 499.0042 ####[facility] [address] [place], [address] L499.0043on 03-15-2025 Trop T High Sen 12 ng/L Normal <=14 [facility] Comment on above: Performed By: #### L 499.0043 #### [facility] [address] [place], [address] L501.4021on 03-15-2025 Trop T High Sen < 6 Normal <=14 [facility] Comment on above: Order Comment: Comme nts: POST-CODE Performed By: #### L 501.4021 #### [facility] [address] [place], [address] Laboratory - Chemistry and C hemistry - challengeOrdered By: Sidney Gregg on 03-15-2025 AST [Catalytic activity/Vol] 18 U/L <32 [facility] MCV (mean corpuscular volume ) determinationOrdered By: Sidney Gregg on 03-15-2025 MCV (RBC) [Entitic vol] 94.6 fL 81-99 [facility] MR/[email or web address] 03-15-2025 MR/POSTOP.[facility] Medical Records Department [address] [address] Anesthesia Postop Eval I 03/15/25 1007 MR#: [id number] Acct: [id number] Name: MORENO VANESSA Rep #: [id number] : 1965 59 From: Gail Norwood CRNA PCP: Dr. Jill Zelaya MD Status:REG SDC Y Race: C Location: [place] [address] Anesthesia: Postop Eval I Current Vital Signs Temperature: 97.4 F Pulse Rate: 109 Blood Pressure: 129/75 Respiratory Rate: 20 Pulse Ox: 95 Oxygen Delivery Method: Room Air Assessment Airway patent: Yes Spontaneous unlabored respirations: Yes Mental status: Awake and Calm nausea: No Vomiting: No Anesthesia Complication: No Fluid Hydration Crystalloid volume administer (ml): 1,500 Total IV fluid infused: 1,500 Progress Note Anesthesia document: Postop Eval 1 completed: Yes 03/15/25 1008 Date Gail Norwood VICE PRESIDENT RESEARCH Cosigner Signature: Date CC: Signed Normal [facility] MR/[id number] 03-15-2025 MR/POSTOPAN2 [facility] Medical Records Department [address] [place] [address] Anesthesia Postop Eval II 03/15/25 1100 MR#: [id number] Acct: [id number] Name: MORENO VANESSA Rep #: [id number] : 1965 59 From: Warner Mahoney MD PCP: Dr. Jill Zelaya MD Status:REG SDC Y Race: C Location: ICU ICU02- Anesthesia Postop Eval I Sum Postop Eval Completion status Anesthesia document: Postop Eval 1 completed: Yes Anesthesia Postop Eval I Summary Anesthesia Postop Eval I Summary: Anesthesia Postop Eval I: Assessment Summary Airway patent Yes 03/15/25 10:08 VICE [email or web address] [email or web address] Spontaneous unlabored Yes 03/15/25 10:08 VICE PRESIDENT [email or web address] respirations Mental status Awake,Calm 03/15/25 10:08 VICE PRESIDENT [email or web address] nausea No 03/15/25 10:08 VICE PRESIDENT [email or web address] Vomiting No 03/15/25 10:08 VICE PRESIDENT [email or web address] Anesthesia Postop Eval I: Fluid Summary Crystalloid volume administer 1,500 03/15/25 10:08 VICE PRESIDENT [email or web address] (ml) Colloids volume administered ( ml) Blood Product volume administered (ml) Total IV fluid infused 1,500 03/15/25 10:08 VICE PRESIDENT [email or web address] Anesthesia Postop Eval I: Summary Notes Anesthesia Complication No 03/15/25 10:08 VICE PRESIDENT [email or web address] Anesthesia Complication Comment: Post-operative progress note Anesthesia: Postop Eval II Evaluation Mental status: Awake and Calm Pain Level: 2 nausea: No Vomiting: No Progress Note Post-operative progress note: Patient had episode of ventricular tach. This was after about 10 to 15 minutes on arrival to PACU. Patient remained responsive and had adequate blood pressure. However, since she remained in rhythm for over a couple minutes. It was decided to give patient adenosine which she had adequate response to. She was then taken to floor for observation. Hospitalist and surgeon aware of incidence of ventricular tach. 03/15/25 1101 Date Warner Iglesias Signature: Date CC: Signed Normal [facility] Mean corpuscular hemoglobin (MCH) determinationOrdered By: Sideny Gregg on 03-15-2025 MCH (RBC) [Entitic mass] 31.4 pg 27.0-32.0 [facility] Mean corpuscular hemoglobin concentration (MCHC) determinationOrdered By: Sidney Gregg on 03-15-2025 MCHC (RBC) [Mass/Vol] 33.2 g/dL 32-36 [facility] Mean platelet volume determi nationOrdered By: Sidney Gregg on 03-15-2025 Platelet mean volume (Bld) [Entitic vol] 9.0 fL 6.2-12.0 [facility] Monocyte percentageOrdered B y: Sidney Gregg on 03-15-2025 Monocytes/100 WBC (Bld) 1.8 % 0-10 [facility] Neutrophil percentageOrdered By: Sidney Gregg on 03-15-2025 Neutrophils/100 WBC (Bld) 89.7 % High 47-70 [facility] Nucleated red blood cell per centageOrdered By: Sidney Gregg on 03-15-2025 Nucleated RBC/100 WBC (Bld) [Ratio] 0 % 0-5 [facility] Operative Reporton 06-12-202 5 Operative Report [facility] Medical Records Department [address] [place] [address] Operative Report 03/15/25 0937 MR#: [id number] Acct: [id number] Name: MORENO VANESSA Rep #: [id number] : 1965 59 From: Fernando Ontiveros MD PCP: Dr. Jill Zelaya MD Status:[facility] Location: [place] [address]-1 Procedures Digestive 40xxx-49xxx: [id number] Laparo cholecystectomy/graph Operative Report (Standard) Operative Information Date of Procedure: 03/15/25 Pre-Operative Diagnosis: Symptomatic cholelithiasis Post-Operative Diagnosis: Symptomatic cholelithiasis Surgery/Procedure Performed: Robotic cholecystectomy with ICG cholangiogram suit attendant: Yes Dog Handler Or Trainer: Senia Sandoval Tasks completed by assistant production editor: Closing, Trocar and Other Additional offset press assistant?: No Type of Anesthesia: General and Local RN Documented Start/Stop Times: Operation Date: 03/15/25 08:00 Case Time Into Pre-Op 03/15/25 06:48 Anesthesia Start 03/15/25 08:12 Into Room 03/15/25 08:12 Procedure Start 03/15/25 08:34 Procedure Start Time: 08:34 Procedure Stop Time: 09:38 Select all DRAINS/GRAFTS/IMPLANTS that apply: None Estimated Blood Loss: 5 mL Specimen collected: Yes Description of specimen(s) removed: Gallbladder Description of surgery: The patient is a 59-year-old female who was recently seen through the office with right upper quadrant pain. Ultrasound showed a large gallstone in the neck of the gallbladder. I offered her a robotic cholecystectomy as treatment. We discussed that he the planned surgery including risk benefits and alternatives. She wished to proceed. She was brought to the operative room today following informed consent. She was placed supine on the operative table with arms outstretched and arm boards. General anesthesia was induced. Once adequately sedated the abdomen is then prepped and draped in the usual sterile manner. a 5 mm incision was made just below the umbilicus. Through this a 5 mm trocar was placed optically. This was placed without incident. The abdomen is then fully insufflated with CO2 gas. A 5 mm 0 degree scope was inserted. There were no signs of bowel or vascular injury. Next an 8 mm trocar was placed on the right side of the abdomen along with another 8 mm trocar in the left side of the abdomen and then finally another 8 mm trocars placed in the left upper quadrant. All of these were placed without incident and under direct visualization. The original 5 mm trocar was switched to an 8 mm robotic trocar as well. The robot was then rolled into position and docked. Once in place the gallbladder was visualized in the right upper quadrant. The fundus of the gallbladder through reflected in a cephalad direction. There were some adhesions to the undersurface of the gallbladder which were taken down using electrocautery connected to an L- hook. Once these adhesions were taken down the infundibulum of the gallbladder was readily observed. The peritoneum on either side of the gallbladder was freed up using electrocautery. This created greater mobility of the gallbladder infundibulum. Cystic duct and cystic artery were then dissected out circumferentially. The lower third of the gallbladder was then removed from the undersurface of the gallbladder thus creating a critical view of safety such that 2 and only 2 structures were seen going to the gallbladder. The cystic duct and cystic artery were then clipped. Prior to clipping ICG cholangiogram was visualized and showed the cystic duct/common bile duct anatomy. We were clearly clipping the cystic duct. Both the duct and the artery were clipped and then transected using electrocautery and the hook. After this the gallbladder was then removed from the undersurface of the liver again using electrocautery. As the gallbladder was almost freed from the liver and opening on the gallbladder it developed from torsion on the grasper. At this point there was spillage of bile. This was promptly suctioned out and irrigated using a power suction supply coordinator. The gallbladder was removed by placing it in a bag and bring it out through the left- sided trocar site. This did not require any stretching of the fascia. A total of 3 L of saline were then used to copiously irrigate the right upper quadrant. This was nice and clear at the completion of the procedure. Patient was flattened out and all additional irrigant fluid was suctioned out. The trocars were then removed thus allowing escape of insufflation. A total of 30 cc of local anesthetic were used and the incisions through the course of the operation. 4-0 Vicryl was then used to close the skin incisions. Skin glue was also applied as dressing. She was awakened from anesthesia and taken to recovery in good condition. Surgical Findings: See procedure note Complications Complications: No Admit VTE Documentation VTE Present on Admissi (more content not included)... Normal [facility] Platelet countOrdered By: Aroldo Gregg on 03-15-2025 Platelets (Bld) [#/Vol] 233 10*3/uL 150-450 [facility] RBC Auto (Bld) [#/Vol]Ordere d By: Sidney Gregg on 03-15-2025 RBC (Bld) [#/Vol] 4.04 10*6/uL Low 4.2-5.4 [facility] Serum globulin measurementOr dered By: Sidney Gregg on 03-15-2025 Globulin (S) [Mass/Vol] 2.2 g/dL 2.2-4.2 [facility] Serum or plasma alanine fam otransferase (ALT) measurementOrdered By: Sidney Gregg on 03-15-2025 ALT [Catalytic activity/Vol] 14 U/L <35 [facility] Serum or plasma albumin baljit urement (mass/volume)Ordered By: Sidney Gregg on 03-15-2025 Albumin [Mass/Vol] 3.8 g/dL 3.4-4.8 [facility] Serum or plasma albumin/glob ulin mass ratioOrdered By: Sidney Gregg on 03-15-2025 Albumin/Globulin [Mass ratio] 1.8 {ratio} 0.9-2.4 [facility] Serum or plasma alkaline frances sphatase measurementOrdered By: Sidney Gregg on 03-15-2025 ALP [Catalytic activity/Vol] 80 U/L 35-104 [facility] Surgery Specimen Level IIIon 03-15-2025 Surgery Specimen Level III Patient Age/Sex Location Account Attending Physician MORENO VANESSA 59/F MS2 [id number] Dr. Fernando Ontiveros MD Specimen: [id number] Received: 03/15/25 Status: CONSUELO Elena Num: [id number] Spec Type: BARBIE Waldron Dr: Dr. Fernando Ontiveros MD HEADER OPERATION: Robotic cholecystectomy PRE-OP DIAGNOSIS: Right upper quadrant pain, gallstones TISSUE SUBMITTED: A- Gallbladder and contents MICROSCOPIC DIAGNOSIS A. Gallbladder and contents, cholecystectomy: * Cholelithiasis. MICROSCOPIC DESCRIPTION Slides are reviewed. GROSS DESCRIPTION A. Received in formalin labeled with the patient's name and date of . Designated as gallbladder and contents is a 5.0 x 3.8 x 1.1 cm stone-green, fatty and disrupted gallbladder with attached cystic duct (inked black, shaved). The mucosa is stone-green, focally granular and erythematous with a wall thickness of 0.1 cm. No cholesterolosis grossly identified. There is a 1.0 cm bile-stained crystalline cholelith. Solution Maker sections are submitted in 1 cassette. SLC 03/15/2025 CPT:36287 Patient Age/Sex Location Account Attending Physician MORENO VANESSA 59/F MS2 [id number] Dr. Fernando Ontiveros MD Signed (signature on file) Dr. Kristina Sanchez MD 03/16/25 1703 Normal [facility] Comment on above: Performed By: #### P SUIII ####[facility] [address] [place], [address] Total proteinOrdered By: Donna Gregg on 03-15-2025 Protein [Mass/Vol] 6.0 g/dL 5.9-8.4 [facility] Troponin T.cardiac [Mass/vol ume] in Serum or Plasma by High sensitivity methodOrdered By: Sidney Gregg on 03-15-2025 Troponin T.cardiac High sensitivity method [Mass/Vol] 12 ng/L <14 [facility] Troponin T.cardiac High sensitivity method [Mass/Vol] 8 ng/L <14 [facility] Troponin T.cardiac High sensitivity method [Mass/Vol] < 6 ng/L <14 [facility] White blood cell (WBC) count Ordered By: Sidney Gregg on 03-15-2025 WBC (Bld) [#/Vol] 12.5 10*3/uL High 4.4-11.0 [facility] Electrocardiogram reportOrde red By: Edgardo Lacy on 03-14-2025 EKG study [facility] Cardiovascular Services [address] [place] [address] 12 Lead EKG 03/13/25 0950 MR#: [id number] Acct: [id number] Name: MORENO VANESSA Rep #:[id number] : 1965 59 From: Edgardo damian MD Attending Dr: Dr. Fernando Ontiveros MD Status: PRE [facility] [place]: Fernando Ontiveros MD Date: 03/13/25 [place] [facility] Sex: F C Admitted: Test Reason : PREOP Blood Pressure : */* mmHG Vent. Rate : 80 BPM Atrial Rate : 80 BPM P-R Int : 134 ms QRS Dur : 78 ms QT Int : 386 ms P-R-T Axes : 55 17 26 degrees QTcB Int : 445 ms Normal sinus rhythm Low voltage QRS Borderline ECG Confirmed by Edgardo Lacy ([id number]), magazine editor TRINI LALA ([id number]) on 03/14/2025 10:14:17 AM Referred By: Fernando Ontiveros Confirmed By: Edgardo Lacy 03/14/25 1014 Date _ Edgardo Lacy MD CC: Dr. Jill Zelaya MD; Dr. Fernando Ontiveros MD ~ Signed [facility] Work Phone: MR/Vick 03-14-2025 MR/[facility] Medical Records Department [address] [place] [address] PAT - Anesthesia 03/14/25 1039 MR#: [id number] Acct: [id number] Name: MORENO VANESSA Rep #: [id number] : 1965 59 From: Warner Mahoney MD PCP: Dr. Jill Zelaya MD Status:PRE SDC Y Race: C [place] [facility] Pre-Assessment Diagnosis/Proposed Procedure Planned Operative Procedure(s): Laparoscopic, Cholecystectomy with IOC Anesthesia History Anesthesia History - customer care professional: Anesthesia History - customer care professional Hx Hospitalization No 03/09/25 10:35 Any Problems [...] take am of surgery PONV PONV - customer care professional: PONV - customer care professional Female Yes 03/09/25 10:35 HX of Motion [...] 03/07/25 15:04 Respiratory Assessment Respiratory Assessment - customer care professional: Respiratory Tract Infection Hx - customer care professional Hx Respiratory Tract Infection No 03/09/25 10:35 STOP Sleep Apnea STOP Sleep Apnea - customer care professional: STOP Sleep Apnea - customer care professional Hx Hypertension No 03/09/25 10:35 Hx Sleep [...] Tobacco Use History Tobacco Use History - customer care professional: Tobacco Use History - customer care professional Tobacco Use Smoking Status Never smoker 03/09/25 10:35 Hx Tobacco Use No 03/09/25 10:35 Years Smoking Packs Smoked per Day Smoking Cessation Date was within the last 15 years Hx Smoking Cessation Date Hx Smoking Cessation Counseling Hematologic Medial History Hematologic Hx - customer care professional: Hematologic Medical Hx - tar pot man Hx of Blood Transfusion Yes 03/09/25 10:35 Hx of Transfusion in last 3 No 03/09/25 10:35 Months Date of Last Transfusion (if within last 3 months) Ever experience any problems No 03/09/25 10:35 with transfusion(s)? Specify any problems Hx of Preganancy in last 3 No 03/09/25 10:35 Months Nurse Filling Out Transfusion MGRIFFITH 03/09/25 10:35 Questions: Date: 03/09/25 03/09/25 10:35 Time: 10:37 03/09/25 10:35 Patient unable to answer at this time (ie. confused, unrespo /Reproduction History /Reproductive History - customer care professional: /Reproductive Hx- customer care professional Hx Now No 03/09/25 10:35 Gestational Age (in weeks): EDC: Hx Hx Para Hx Section SAB No 03/09/25 10:35 Active Medications Active Medications: Current Medications Generic Name Dose Route Start Last Admin Trade Name Freq PRN Reason Stop Dose Admin Indocyanine Green 3.75 mg/ N/A 1.5 mls @ 999 mls/hr 03/15/25 11:45 IV 03/15/25 11:46 PREOP ONE [facility] Medical History (Updated 03/09/25 @ 10:45 by [...] D3) 1 (more content not included)... Normal [facility] 12 Lead EKGon 03-13-2025 12 Lead EKG [facility] Cardiovascular Services [address] [place] [address] 12 Lead EKG 03/13/25 0950 MR#: [id number] Acct: [id number] Name: MORENO VANESSA Rep #: [id number] : 1965 59 From: Edgardo Lacy MD Attending Dr: Dr. Fernando Ontiveros MD Status: VA E [facility] [place]: Fernando Ontiveros MD Date: 03/13/25 [place] [facility] Sex: F C Admitted: Test Reason : PREOP Blood Pressure : */* mmHG Vent. Rate : 80 BPM Atrial Rate : 80 BPM P-R Int : 134 ms QRS Dur : 78 ms QT Int : 386 ms P-R-T Axes : 55 17 26 degrees QTcB Int : 445 ms Normal sinus rhythm Low voltage QRS Borderline ECG Confirmed by Edgardo Lacy ([id number]), magazine editor TRINI LALA ([id number]) on 03/14/2025 10:14:17 AM Referred By: Fernando Ontiveros Confirmed By: Edgardo Lacy 03/14/25 1014 Date Edgardo Lacy MD CC: Dr. Jill Zelaya MD; Dr. Fernando Ontiveros MD Signed Normal [facility] Basic Metabolic Profile (BMP )on 03-13-2025 BUN/CRE 18.2 RATIO Normal 10-20 [facility] Comment on above: Performed By: #### L 500.2500 #### [facility] [address] [place], [address] Calcium [Mass/Vol] 9.3 mg/dL Normal 7.6-11.0 [facility] Comment on above: Performed By: #### L 500.2500 #### [facility] [address] [place], [address] Chloride [Moles/Vol] 102 mmol/L Normal 98-108 [facility] Comment on above: Performed By: #### L 500.2500 #### [facility] [address] [place], [address] CO2 [Moles/Vol] 28.3 mmol/L Normal 21.0-32.0 [facility] Comment on above: Performed By: #### L 500.2500 #### [facility] [address] [place], [address] Creatinine [Mass/Vol] 0.91 mg/dL Normal 0.70-1.20 [facility] Comment on above: Performed By: #### L 500.2500 #### [facility] [address] [place], [address] GAP 10 Normal 5-15 [facility] Comment on above: Performed By: #### L 500.2500 #### [facility] [address] [place], [address] GFR/1.73 sq M.predicted among non-blacks MDRD (S/P/Bld) [Vol rate/Area] 72 mL/min/{1.73_m2} Normal >60 [facility] Comment on above: Result Comment: mL/m in/1.73m2 CKD-EPI Creatinine Equation (2020) Performed By: #### L 500.2500 #### [facility] [address] [place], [address] Glucose [Mass/Vol] 97 mg/dL Normal 70-99 [facility] Comment on above: Performed By: #### L 500.2500 #### [facility] [address] [place], [address] Potassium [Moles/Vol] 4.2 mmol/L Normal 3.3-5.1 [facility] Comment on above: Performed By: #### L 500.2500 #### [facility] [address] [place], [address] Sodium [Moles/Vol] 140 mmol/L Normal 133-145 [facility] Comment on above: Performed By: #### L 500.2500 #### [facility] [address] [place], [address] Urea nitrogen [Mass/Vol] 17 mg/dL Normal 4-19 [facility] Comment on above: Performed By: #### L 500.2500 #### [facility] [address] [place], [address] Surgery Visit Reporton 03-07 Surgery Visit Report [facility] [address] [place] [address] OFFICE VISIT Date of Service: 03/07/25 MR#: [id number] Acct: [id number] Name: MORENO VANESSA Rep #: [id number] : 1965 Provider: Dr. Fernando blakely MD Age/Sex: 59/F Location: [facility] Status: Signed Intake Vital Signs 01/25/25 13:05 [...] spouse current occupational status: employed current occupation: [employer] Smoking Status: Never smoker Electronic Cigarette Use: not used alcohol intake: current alcohol intake frequency: holidays/special occasions only details: social substance use type: does not use caffeine: Yes what type of physical activity do you participate in: none seatbelt use: always do you feel safe at home: Yes additional social history: [facility] HPI HPI: The patient is a 59-year-old [...] shortness of (more content not included)... Normal [facility] Gallbladderon 03-06-2025 Gallbladder [facility] Imaging Services [address] [place], [place] [id number] Gallbladder MR#: [id number] Acct: [id number] Name: MORENO VANESSA Rep #: [id number] : 1965 F 59 From: Sidney Desai MD PCP: Dr. Jill Zelaya MD Status: REG CLI Study: Gallbladder Date of Exam: 03/06/25 Exam# [id number] Ordering Dr: Fatemeh Urbina MD PROCEDURE: GALLBLADDER [...] lodged in the gallbladder neck. Reading Location: [facility] CC: Dr. Jill Zelaya MD; Dr. Fatemeh Urbina MD Market Risk Manager: Signed [facility] Internal Medicine Office Vis sofi 01-24-2025 Internal Medicine Office Visit [facility] [address] [place] [address] [place] [address] OFFICE VISIT Date of Service: 01/25/25 MR#: [id number] Acct: [id number] Name: MORENO VANESSA Rep #: [id number] : 1965 Provider: Dr. Jill laughlin MD Age/Sex: 59/F Location: [facility] Status: Signed Intake Vital Signs 08/03/24 13:31 [...] Visit Reasons: 6 M FU Chief Complaint: Product Marketing Executive Required: No Is patient in pain?: No [...] to restart for general aches and pains. [facility] Medical History Wears glasses History of steroid [...] spouse current occupational status: employed current occupation: [employer] Smoking Status: Never smoker Electronic Cigarette Use: [...] an educational (more content not included)... Normal [facility] Dining Manager Office Visit Reporton 01-19-2025 Dining Manager Office Visit Report [facility] [address], [address] [place] [address] OFFICE VISIT Date of Service: 01/19/25 MR#: [id number] Acct: [id number] Name: MORENO VANESSA Rep #: [id number] : 1965 Provider: Dr. 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 Normal [facility] Anion gap in Serum or Plasma Ordered By: David David on 12-27-2024 Anion gap [Moles/Vol] 10 mmol/L 5-15 [facility] BUN/creatinine ratioOrdered By: David David on 12-27-2024 Urea nitrogen/Creatinine [Mass ratio] 17.1 mg/mg 10-20 [facility] Basic Metabolic Profile (BMP )on 12-27-2024 BUN/CRE 17.1 RATIO Normal 10-20 [facility] Comment on above: Performed By: #### L 500.2500 ####[facility] [address] [place], [address] Calcium [Mass/Vol] 8.9 mg/dL Normal 7.6-11.0 [facility] Comment on above: Performed By: #### L 500.2500 ####[facility] [address] [place], [address] Chloride [Moles/Vol] 104 mmol/L Normal 98-108 [facility] Comment on above: Performed By: #### L 500.2500 ####[facility] [address] [place], [address] CO2 [Moles/Vol] 23.4 mmol/L Normal 21.0-32.0 [facility] Comment on above: Performed By: #### L 500.2500 ####[facility] [address] [place], [address] Creatinine [Mass/Vol] 0.91 mg/dL Normal 0.70-1.20 [facility] Comment on above: Performed By: #### L 500.2500 ####[facility] [address] [place], [address] GAP 10 Normal 5-15 [facility] Comment on above: Performed By: #### L 500.2500 ####[facility] [address] [place], [address] GFR/1.73 sq M.predicted among non-blacks MDRD (S/P/Bld) [Vol rate/Area] 72 mL/min/{1.73_m2} Normal >60 [facility] Comment on above: Result Comment: mL/m in/1.73m2 CKD-EPI Creatinine Equation (2020) Performed By: #### L 500.2500 ####[facility] [address] [place], [address] Glucose [Mass/Vol] 144 mg/dL High 70-99 [facility] Comment on above: Performed By: #### L 500.2500 ####[facility] [address] [place], [address] Potassium [Moles/Vol] 4.0 mmol/L Normal 3.3-5.1 [facility] Comment on above: Performed By: #### L 500.2500 ####[facility] [address] [place], [address] Sodium [Moles/Vol] 138 mmol/L Normal 133-145 [facility] Comment on above: Performed By: #### L 500.2500 ####[facility] [address] [place], [address] Urea nitrogen [Mass/Vol] 16 mg/dL Normal 4-19 [facility] Comment on above: Performed By: #### L 500.2500 ####[facility] [address] [place], [address] Carbon dioxide, total [Moles /volume] in Central venous bloodOrdered By: David David on 12-27-2024 CO2 [Moles/Vol] 23.4 mmol/L 21.0-32.0 [facility] Chloride assayOrdered By: Ra jo-ann David on 12-27-2024 Chloride [Moles/Vol] 104 mmol/L 98-108 [facility] GFR/1.73 sq M.predicted alexa g non-blacks MDRD (S/P/Bld) [Vol rate/Area]Ordered By: David David on 12-27-2024 Estimated GFR (MDRD) Non-Af Amer 72 >60 [facility] Comment on above: mL/min/1.73m2 CKD-EP I Creatinine Equation (2020) Glomerular filtration rate ( GFR) estimation/1.73 sq m using serum, plasma, or whole bOrdered By: David David on 12-27-2024 GFR/1.73 sq M.predicted among non-blacks MDRD (S/P/Bld) [Vol rate/Area] 72 mL/min/{1.73_m2} >60 [facility] Comment on above: mL/min/1.73m2 CKD-EP I Creatinine Equation (2020) Potassium (Unsp spec) [Mass/ Vol]Ordered By: David David on 12-27-2024 Potassium [Moles/Vol] 4.0 mmol/L 3.3-5.1 [facility] Potassium measurement (mass/ volume)Ordered By: David David on 12-27-2024 Potassium (Unsp spec) [Mass/Vol] 4.0 mmol/L 3.3-5.1 [facility] Serum creatinine measurement (mass/volume)Ordered By: David David on 12-27-2024 Creatinine [Mass/Vol] 0.91 mg/dL 0.70-1.20 [facility] Serum glucose measurement (m ass/volume)Ordered By: David David on 12-27-2024 Glucose [Mass/Vol] 144 mg/dL High 70-99 [facility] Serum or plasma calcium baljit urement (mass/volume)Ordered By: David David on 12-27-2024 Calcium [Mass/Vol] 8.9 mg/dL 7.6-11.0 [facility] Serum or plasma urea nitroge n measurement (mass/volume)Ordered By: David David on 12-27-2024 Urea nitrogen [Mass/Vol] 16 mg/dL 4-19 [facility] Sodium levelOrdered By: Tamika David on 12-27-2024 Sodium [Moles/Vol] 138 mmol/L 133-145 [facility] Neurology Visit Reporton Neurology Visit Report [facility] [address] [facility], [address] [place], [place] [address] OFFICE VISIT Date of Service: 12/07/24 MR#: [id number] Acct: [id number] Name: MORENO VANESSA Rep #: [id number] : 1965 Provider: Dr. David galicia MD Age/Sex: 59/F Location: [facility]. Status: Signed HPI [facility] Chief Complaint: Details: Interim History: Moreno returns [...] the legs. She had previously seen a paint and table edger, Dr. Gold. She was subsequently seen at the [facility] and has received lumbar radiofrequency ablation as well as SI joint injections and these have been of benefit. She has lumbar and multilevel degenerative joint/disc disease. She has seen an orthopedic surgeon, Dr. Urban, as well as an orthopedic surgeon at the [facility] and surgical intervention for her lumbar pathology was not felt to be warranted. She is performing exercises on her own. She now states that her low back pain has resolved. She is no longer using celecoxib. She has used baclofen infrequently. She denied having weakness in the legs. She has been diagnosed with erythromelalgia. She was evaluated for this at the [facility] was prescribed cetirizine and this has [...] pelvis and (more content not included)... Normal [facility] Dining Manager Office Visit Reporton 11-14-2024 Dining Manager Office Visit Report [address], [address] [place] [address] OFFICE VISIT Date of Service: 11/14/24 MR#: [id number] Acct: [id number] Name: MORENO VANESSA Rep #: [id number] : 1965 Provider: Dr. Yuli rendon MD Age/Sex: 59/F Location[place] [facility] Status: Signed Intake Vital Signs 10/17/24 11:47 10/17/24 13:30 11/14/24 11:49 11/14/24 11:53 Height 5 ft 9 in 5 ft 9 in 5 ft 9 in 5 ft 9 in Weight: 197 lb 2 oz BMI 29.1 BP 115/73 Pulse 93 Pulse Source Monitor Intake Visit Reasons: 1 M FU Product Marketing Executive Required: No Is patient in pain?: No [...] spouse current occupational status: employed current occupation: [employer] Smoking Status: Never smoker Electronic Cigarette Use: [...] noise has been tracking daily with the [place] darion, 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 Normal [facility] Dining Manager Office Visit Reporton 10-17-2024 Dining Manager Office Visit Report [facility] [address], [address] [place] [address] OFFICE VISIT Date of Service: 10/17/24 MR#: [id number] Acct: [id number] Name: MORENO VANESSA Rep #: [id number] : 1965 Provider: Dr. 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 Normal [facility] [place] L[employer] Chainson 08-18-2024 FR KAPPA LT CHN 15.1 mg/L Normal 3.3-19.4 [facility] Comment on above: Order Comment: Test( s) 799226-Ura. B1, Whole Bloodwas developed and its performance characteristicsdetermined by [employer]. It has not been cleared or approvedby the Food and Drug Administration. Performed By: #### L 3300.8000, L503.0105, L500.4050, L501.9985, L3100.5450, L506.0250, L3130.0010, L501.9520, L101.9900, L100.0500, L501.5200 ####[facility] [address] [place], [address] FR LAMBDA LT CH 13.5 mg/L Normal 5.7-26.3 [facility] Comment on above: Order Comment: Test( s) [id number]-Aki. B1, Whole Bloodwas developed and its performance characteristicsdetermined by [facility]. It has not been cleared or approvedby the Food and Drug Administration. Performed By: #### L 3300.8000, L503.0105, L500.4050, L501.9985, L3100.5450, L506.0250, L3130.0010, L501.9520, L101.9900, L100.0500, L501.5200 ####[facility] [address] [place], [address] KAPPA/LAMBDA % 1.12 Normal 0.26-1.65 [facility] Comment on above: Order Comment: Test( s) 654749-Yvn. B1, Whole Bloodwas developed and its performance characteristicsdetermined by [employer]. It has not been cleared or approvedby the Food and Drug Administration. Performed By: #### L 3300.8000, L503.0105, L500.4050, L501.9985, L3100.5450, L506.0250, L3130.0010, L501.9520, L101.9900, L100.0500, L501.5200 ####[facility] [address] [place], [place], [address] Vitamin B1, Thiamineon 08-18 VIT B1 THIAMINE 149.6 nmol/L Normal 66.5-200.0 [facility] Comment on above: Order Comment: Test( s) 644982-Pxj. B1, Whole Bloodwas developed and its performance characteristicsdetermined by [facility]. It has not been cleared or approvedby the Food and Drug Administration. Result Comment: Perf ormed at: CB - [facility] [address] [id number] Protective Officer: Jeff Rodriguez PhD, Phone: [phone] Performed at: BN - [facility] [address] [id number] Protective Officer: Kd Hannon MD, Phone: [phone] Performed By: #### L 3300.8000, L503.0105, L500.4050, L501.9985, L3100.5450, L506.0250, L3130.0010, L501.9520, L101.9900, L100.0500, L501.5200 ####[facility] [address] [place], [address] Neurology Visit Reporton Neurology Visit Report [facility] [address] [facility], [address] [place] [id number] OFFICE VISIT Date of Service: 08/17/24 MR#: [id number] Acct: [id number] Name: MORENO VANESSA Rep #: [id number] : 1965 Provider: Dr. David galicia MD Age/Sex: 58/F Location: [facility] Status: Signed with Addenda ADDENDUM by Dr. David David MD on 10/09/24 at 9684 Addendum Addendum (10/09/2024): Per the patient's request bupropion XL 150 mg daily will be reduced to bupropion 75 mg daily. 10/09/24 1658 Date David David MD cc: Dr. Jill [...] mg twice daily. Fluoxetine will be discontinued. 10/02/241717 Date David David MD cc: Dr. Jill [...] the legs. She had previously seen a paint and table edger, Dr. Gold. She is now being seen at the [facility] and has received lumbar radiofrequency ablation as well as SI joint injections and these have been of benefit. She has lumbar and multilevel degenerative joint/disc disease. She has seen an orthopedic surgeon, Dr. Urban, as well as an orthopedic surgeon at the [facility] and surgical intervention for her lumbar pathology was not felt to be warranted. Baclofen and celecoxib have been of benefit. She denied having weakness in the legs. She has been diagnosed with erythromelalgia and is seeing a physician at the [facility] for this and has been prescribed [...] Needle electromyo (more content not included)... Normal [facility] SYLVIE w/ Reflex Mult Confirmon 08-16-2024 SYLVIE,DIRECT Negative Normal Negative [facility] Comment on above: Result Comment: Perf ormed at: CB - [facility] [address] [id number] Protective Officer: Jeff Rodriguez PhD, Phone: [phone] Performed By: #### L 7598.5641, L503.0105, L500.4050, L501.9985, L3100.5450, L506.0250, L3130.0010, L501.9520, L101.9900, L100.0500, L501.5200 ####[facility] [address] [place], [place], [phone] CBC-Complete Blood Cnt No Di ffon 08-15-2024 Erythrocyte distribution width (RBC) [Ratio] 12.7 % Normal 11.6-14.6 [facility] Comment on above: Performed By: #### L 3300.8000, L503.0105, L500.4050, L501.9985, L3100.5450, L506.0250, L3130.0010, L501.9520, L101.9900, L100.0500, L501.5200 ####[facility] [address] [place], [address] Hematocrit (Bld) [Volume fraction] 40.8 % Normal 37-47 [facility] Comment on above: Performed By: #### L 3300.8000, L503.0105, L500.4050, L501.9985, L3100.5450, L506.0250, L3130.0010, L501.9520, L101.9900, L100.0500, L501.5200 ####[facility] [address] [place], [place], [phone] Hemoglobin (Bld) [Mass/Vol] 13.4 g/dL Normal 12.0-15.0 [facility] Comment on above: Performed By: #### L 3300.8000, L503.0105, L500.4050, L501.9985, L3100.5450, L506.0250, L3130.0010, L501.9520, L101.9900, L100.0500, L501.5200 ####[facility] [address] [place], [address] MCH (RBC) [Entitic mass] 31.2 pg Normal 27.0-32.0 [facility] Comment on above: Performed By: #### L 3300.8000, L503.0105, L500.4050, L501.9985, L3100.5450, L506.0250, L3130.0010, L501.9520, L101.9900, L100.0500, L501.5200 ####[facility] [address] [place], [place], [phone] MCHC (RBC) [Mass/Vol] 32.8 g/dL Normal 32-36 [facility] Comment on above: Performed By: #### L 3300.8000, L503.0105, L500.4050, L501.9985, L3100.5450, L506.0250, L3130.0010, L501.9520, L101.9900, L100.0500, L501.5200 ####[facility] [address] [place], [place], [phone] MCV (RBC) [Entitic vol] 95.1 fL Normal 81-99 [facility] Comment on above: Performed By: #### L 3300.8000, L503.0105, L500.4050, L501.9985, L3100.5450, L506.0250, L3130.0010, L501.9520, L101.9900, L100.0500, L501.5200 ####[facility] [address] [place], [place], [phone] Platelet mean volume (Bld) [Entitic vol] 9.0 fL Normal 6.2-12.0 [facility] Comment on above: Performed By: #### L 3300.8000, L503.0105, L500.4050, L501.9985, L3100.5450, L506.0250, L3130.0010, L501.9520, L101.9900, L100.0500, L501.5200 ####[facility] [address] [place], [address] Platelets (Bld) [#/Vol] 323 10*3/uL Normal 150-450 [facility] Comment on above: Performed By: #### L 3300.8000, L503.0105, L500.4050, L501.9985, L3100.5450, L506.0250, L3130.0010, L501.9520, L101.9900, L100.0500, L501.5200 ####[facility] [address] [place], [address] RBC (Bld) [#/Vol] 4.29 10*6/uL Normal 4.2-5.4 [facility] Comment on above: Performed By: #### L 3300.8000, L503.0105, L500.4050, L501.9985, L3100.5450, L506.0250, L3130.0010, L501.9520, L101.9900, L100.0500, L501.5200 ####[facility] [address] [place], [address] RDW SD 44.4 fl High 35.1-43.9 [facility] Comment on above: Performed By: #### L 3300.8000, L503.0105, L500.4050, L501.9985, L3100.5450, L506.0250, L3130.0010, L501.9520, L101.9900, L100.0500, L501.5200 ####[facility] [address] [place], [address] WBC (Bld) [#/Vol] 7.4 10*3/uL Normal 4.4-11.0 [facility] Comment on above: Performed By: #### L 3300.8000, L503.0105, L500.4050, L501.9985, L3100.5450, L506.0250, L3130.0010, L501.9520, L101.9900, L100.0500, L501.5200 ####[facility] [address] [place], [address] Comprehensive Metabolic Prof ilon 08-15-2024 Albumin [Mass/Vol] 3.8 g/dL Normal 3.2-5.0 [facility] Comment on above: Order Comment: N Performed By: #### L 3300.8000, L503.0105, L500.4050, L501.9985, L3100.5450, L506.0250, L3130.0010, L501.9520, L101.9900, L100.0500, L501.5200 ####[facility] [address] [place], [address] Albumin/Globulin [Mass ratio] 1.2 {ratio} Normal 0.9-2.4 [facility] Comment on above: Order Comment: N Performed By: #### L 3300.8000, L503.0105, L500.4050, L501.9985, L3100.5450, L506.0250, L3130.0010, L501.9520, L101.9900, L100.0500, L501.5200 ####[facility] [address] [place], [address] ALK P 72 U/L Normal 45-117 [facility] Comment on above: Order Comment: N Performed By: #### L 3300.8000, L503.0105, L500.4050, L501.9985, L3100.5450, L506.0250, L3130.0010, L501.9520, L101.9900, L100.0500, L501.5200 ####[facility] [address] [place], [address] ALT [Catalytic activity/Vol] 19 U/L Normal 13-56 [facility] Comment on above: Order Comment: N Performed By: #### L 3300.8000, L503.0105, L500.4050, L501.9985, L3100.5450, L506.0250, L3130.0010, L501.9520, L101.9900, L100.0500, L501.5200 ####[facility] [address] [place], [place], [phone] AST [Catalytic activity/Vol] 14 U/L Low 15-37 [facility] Comment on above: Order Comment: N Performed By: #### L 3300.8000, L503.0105, L500.4050, L501.9985, L3100.5450, L506.0250, L3130.0010, L501.9520, L101.9900, L100.0500, L501.5200 ####[facility] [address] [place], [address] Bilirubin [Mass/Vol] 0.30 mg/dL Normal 0.20-1.00 [facility] Comment on above: Order Comment: N Result Comment: For patients on eltrombopag therapy, use of Dimension [place] TBIL is not recommended. Performed By: #### L 3300.8000, L503.0105, L500.4050, L501.9985, L3100.5450, L506.0250, L3130.0010, L501.9520, L101.9900, L100.0500, L501.5200 ####[facility] [address] [place], [place], [phone] BUN/CRE 14.1 RATIO Normal 10-20 [facility] Comment on above: Order Comment: N Performed By: #### L 3300.8000, L503.0105, L500.4050, L501.9985, L3100.5450, L506.0250, L3130.0010, L501.9520, L101.9900, L100.0500, L501.5200 ####[facility] [address] [place], [address] CA,Total 9.0 mg/dL Normal 8.5-10.1 [facility] Comment on above: Order Comment: N Performed By: #### L 3300.8000, L503.0105, L500.4050, L501.9985, L3100.5450, L506.0250, L3130.0010, L501.9520, L101.9900, L100.0500, L501.5200 ####[facility] [address] [place], [address] Chloride [Moles/Vol] 106 mmol/L Normal 98-107 [facility] Comment on above: Order Comment: N Performed By: #### L 3300.8000, L503.0105, L500.4050, L501.9985, L3100.5450, L506.0250, L3130.0010, L501.9520, L101.9900, L100.0500, L501.5200 ####[facility] [address] [place], [address] CO2 [Moles/Vol] 26.0 mmol/L Normal 21.0-32.0 [facility] Comment on above: Order Comment: N Performed By: #### L 3300.8000, L503.0105, L500.4050, L501.9985, L3100.5450, L506.0250, L3130.0010, L501.9520, L101.9900, L100.0500, L501.5200 ####[facility] [address] [place], [address] Creatinine [Mass/Vol] 0.92 mg/dL Normal 0.55-1.02 [facility] Comment on above: Order Comment: N Result Comment: The validity of the calculated GFR GFRAA in patients over 70 years has not been determined. Clinical correlation is essential. Performed By: #### L 3300.8000, L503.0105, L500.4050, L501.9985, L3100.5450, L506.0250, L3130.0010, L501.9520, L101.9900, L100.0500, L501.5200 ####[facility] [address] [place], [place], [phone](280) EST GFR - AA 80 mL/min Normal >60 [facility] Comment on above: Order Comment: N Result Comment: Afri can [place] GFR Calc Performed By: #### L 3300.8000, L503.0105, L500.4050, L501.9985, L3100.5450, L506.0250, L3130.0010, L501.9520, L101.9900, L100.0500, L501.5200 ####[facility] [address] [place], [place], [phone] GAP 6 Normal 5-15 [facility] Comment on above: Order Comment: N Performed By: #### L 3300.8000, L503.0105, L500.4050, L501.9985, L3100.5450, L506.0250, L3130.0010, L501.9520, L101.9900, L100.0500, L501.5200 ####[facility] [address] [place], [place], [phone](517) GFR/1.73 sq M.predicted among non-blacks MDRD (S/P/Bld) [Vol rate/Area] 66 mL/min/{1.73_m2} Normal >60 [facility] Comment on above: Order Comment: N Result Comment: Non- GFR Calc Performed By: #### L 3300.8000, L503.0105, L500.4050, L501.9985, L3100.5450, L506.0250, L3130.0010, L501.9520, L101.9900, L100.0500, L501.5200 ####[facility] [address] [place], [address](823) Globulin (S) [Mass/Vol] 3.3 g/dL Normal 2.2-4.2 [facility] Comment on above: Order Comment: N Performed By: #### L 3300.8000, L503.0105, L500.4050, L501.9985, L3100.5450, L506.0250, L3130.0010, L501.9520, L101.9900, L100.0500, L501.5200 ####[facility] [address] [place], [address] Glucose [Mass/Vol] 98 mg/dL Normal 74-106 [facility] Comment on above: Order Comment: N Performed By: #### L 3300.8000, L503.0105, L500.4050, L501.9985, L3100.5450, L506.0250, L3130.0010, L501.9520, L101.9900, L100.0500, L501.5200 ####[facility] [address] [place], [address] Potassium [Moles/Vol] 4.2 mmol/L Normal 3.5-5.1 [facility] Comment on above: Order Comment: N Performed By: #### L 3300.8000, L503.0105, L500.4050, L501.9985, L3100.5450, L506.0250, L3130.0010, L501.9520, L101.9900, L100.0500, L501.5200 ####[facility] [address] [place], [address] Sodium [Moles/Vol] 137 mmol/L Normal 136-145 [facility] Comment on above: Order Comment: N Performed By: #### L 3300.8000, L503.0105, L500.4050, L501.9985, L3100.5450, L506.0250, L3130.0010, L501.9520, L101.9900, L100.0500, L501.5200 ####[facility] [address] [place], [place], [phone] T PROT 7.1 g/dL Normal 6.4-8.2 [facility] Comment on above: Order Comment: N Performed By: #### L 3300.8000, L503.0105, L500.4050, L501.9985, L3100.5450, L506.0250, L3130.0010, L501.9520, L101.9900, L100.0500, L501.5200 ####[facility] [address] [place], [place], [phone] Urea nitrogen [Mass/Vol] 13 mg/dL Normal 7-18 [facility] Comment on above: Order Comment: N Performed By: #### L 3300.8000, L503.0105, L500.4050, L501.9985, L3100.5450, L506.0250, L3130.0010, L501.9520, L101.9900, L100.0500, L501.5200 ####[facility] [address] [place], [place], [phone] Erythrocyte Sed Rateon 08-15 SED RATE 1 mm/hr Normal 0-30 [facility] Comment on above: Performed By: #### L 3300.8000, L503.0105, L500.4050, L501.9985, L3100.5450, L506.0250, L3130.0010, L501.9520, L101.9900, L100.0500, L501.5200 ####[facility] [address] [place], [place], [phone] Folates, (Folic Acid)on 08-04 FOLATES 16.90 ng/mL Normal 3.1-55.4 [facility] Comment on above: Order Comment: N Performed By: #### L 3300.8000, L503.0105, L500.4050, L501.9985, L3100.5450, L506.0250, L3130.0010, L501.9520, L101.9900, L100.0500, L501.5200 ####[facility] [address] [place], [place], [phone] Hemoglobin A1con 08-15-2024 HbA1c (Bld) [Mass fraction] 5.4 % Normal 3.8-5.6 [facility] Comment on above: Result Comment: Norm al < 5.7 % Prediabetic 5.7 - 6.4 % Diabetic >or= 6.5 % Please note range changes. Performed By: #### L 3300.8000, L503.0105, L500.4050, L501.9985, L3100.5450, L506.0250, L3130.0010, L501.9520, L101.9900, L100.0500, L501.5200 ####[facility] [address] [place], [place], [phone] Magnesiumon 08-15-2024 Magnesium [Mass/Vol] 2.3 mg/dL Normal 1.6-2.6 [facility] Comment on above: Order Comment: N Performed By: #### L 3300.8000, L503.0105, L500.4050, L501.9985, L3100.5450, L506.0250, L3130.0010, L501.9520, L101.9900, L100.0500, L501.5200 ####[facility] [address] [place], [place], [phone] Thyroid Stim Hormone (TSH)on 08-15-2024 TSH 1.460 uIU/mL Normal 0.358-3.74 0 [facility] Comment on above: Order Comment: N Performed By: #### L 3300.8000, L503.0105, L500.4050, L501.9985, L3100.5450, L506.0250, L3130.0010, L501.9520, L101.9900, L100.0500, L501.5200 ####[facility] [address] [place], [address] Vitamin B12on 08-15-2024 Cobalamin (Vitamin B12) [Mass/Vol] 448 pg/mL Normal 211-911 [facility] Comment on above: Performed By: #### L 3300.8000, L503.0105, L500.4050, L501.9985, L3100.5450, L506.0250, L3130.0010, L501.9520, L101.9900, L100.0500, L501.5200 ####[facility] [address] [place], [place], [address] Internal Medicine Office Vis itosamina 08-02-2024 Internal Medicine Office Visit [facility] [address] [place] [address] [place] [address] OFFICE VISIT Date of Service: 08/03/24 MR#: [id number] Acct: [id number] Name: MORENO VANESSA Rep #: [id number] : 1965 Provider: Dr. Jill laughlin MD Age/Sex: 58/F Location: [facility] Status: Signed Intake Vital Signs 04/27/24 14:02 [...] spouse current occupational status: employed current occupation: [employer] Smoking Status: Never smoker Electronic Cigarette Use: not used alcohol intake: current alcohol intake frequency: holidays/special occasions only details: social substance use type: does not use caffeine: Yes what type of physical activity do you participate in: none seatbelt use: always do you feel safe at home: Yes additional social history: [facility] HPI Details: MORENO VANESSA, is a 58 [...] She repo (more content not included)... Normal [facility] Absolute lymphocyte countOrd ered By: Jill Zelaya on 12-08-2023 Lymphocytes Auto (Unsp spec) [#/Vol] 1.22 10*3/uL 0.83-4.51 [facility] Automated lymphocyte count a s percentage of total leukocytesOrdered By: Jill Zelaya on 12-08-2023 Lymphocytes/100 WBC Auto (Unsp spec) 20.0 % 19-41 [facility] Basophil percentageOrdered B y: Jill Zelaya on 12-08-2023 Basophils/100 WBC (Bld) 1.3 % 0-1 [facility] Bilirubin [Mass/Vol] 0.30 mg/dL 0.20-1.00 [facility] Comment on above: For patients on eltr ombopag therapy, use of Dimension [place] TBIL is not recommended. Chloride [Moles/Vol] 110 mmol/L 98-107 [facility] Cholesterol [Mass/Vol] 185 mg/dL <200 [facility] Comment on above: <200 mg/dL Desirable 200-240 mg/dL Borderline >240 mg/dL High Risk Eosinophils/100 WBC (Bld) 3.8 % 0-5 [facility] Glucose [Mass/Vol] 102 mg/dL 74-106 [facility] Comment on above: Fasting Glucose resu lt from 100 to 125 mg/dL suggests IMPAIRED HOMEOSTASIS per A.D.A. criteria. Hemoglobin (Bld) [Mass/Vol] 13.1 g/dL 12.0-15.0 [facility] Monocytes/100 WBC (Bld) 4.9 % 0-10 [facility] Neutrophils (Bld) [#/Vol] 4.2 10*3/uL 2.0-7.7 [facility] Neutrophils/100 WBC (Bld) 69.7 % 47-70 [facility] Potassium [Moles/Vol] 4.0 mmol/L 3.5-5.1 [facility] Protein [Mass/Vol] 6.6 g/dL 6.4-8.2 [facility] Sodium [Moles/Vol] 140 mmol/L 136-145 [facility] Triglyceride [Mass/Vol] 99 mg/dL <199 [facility] Comment on above: The drugs N-Acetylcy steine and Metamizole may falsely depress this assay.Serum Triglycerides Reference Interval Normal <150 mg/dL Borderline high 150 - 199 mg/dL High 200 - 499 mg/dL Very High > or = 500 mg/dL WBC (Bld) [#/Vol] 6.1 10*3/uL 4.4-11.0 [facility] Determination of erythrocyte mean corpuscular volume (MCV)Ordered By: Jill Zelaya on 12-08-2023 MCV (RBC) [Entitic vol] 93.2 fL 81-99 [facility] Erythrocyte distribution wid th ratioOrdered By: Jill Zelaya on 12-08-2023 Erythrocyte distribution width (RBC) [Ratio] 12.5 % 11.6-14.6 [facility] Erythrocyte distribution wid th standard deviationOrdered By: Jillmary grace Zelaya on 12-08-2023 Erythrocyte distribution width (RBC) [Entitic vol] 42.5 fL 35.1-43.9 [facility] Hematocrit Auto (Bld) [Volum e fraction]Ordered By: Jill Zelaya on 12-08-2023 Hematocrit (Bld) [Volume fraction] 39.7 % 37-47 [facility] Immature granulocytes/100 WB C Auto (Bld)Ordered By: Jillyeimi Zelaya on 12-08-2023 Immature granulocytes/100 WBC (Bld) 0.300 % 0.0-0.9 [facility] Comment on above: IG% - Immature Granu locytes (promyelocytes, myelocytes and metamyelocytes) > 1% indicates that a LEFT SHIFT is Present. Laboratory - Chemistry and C hemistry - challengeOrdered By: Jill Zelaya on 12-08-2023 Albumin/Globulin [Mass ratio] 1.2 {ratio} 0.9-2.4 [facility] ALP [Catalytic activity/Vol] 65 U/L 45-117 [facility] ALT [Catalytic activity/Vol] 16 U/L 13-56 [facility] Cholesterol in HDL [Mass/Vol] 69 mg/dL >40 [facility] Comment on above: The drugs N-Acetylcy steine and Metamizole may falsely depress this assay. Reference Range HDL <40 mg/dL Low HDL Cholesterol HDL >or= 60 mg/dL High HDL Cholesterol Cholesterol in LDL [Mass/Vol] 96 mg/dL 0-130 [facility] CO2 [Moles/Vol] 26.0 mmol/L 21.0-32.0 [facility] Globulin (S) [Mass/Vol] 3.0 g/dL 2.2-4.2 [facility] Urea nitrogen/Creatinine [Mass ratio] 12.4 mg/mg 10-20 [facility] Laboratory - Hematology and Cell countsOrdered By: Jill Zelaya on 12-08-2023 MCH (RBC) [Entitic mass] 30.8 pg 27.0-32.0 [facility] MCHC (RBC) [Mass/Vol] 33.0 g/dL 32-36 [facility] Nucleated RBC/100 WBC (Bld) [Ratio] 0 % 0-5 [facility] Platelet mean volume (Bld) [Entitic vol] 9.0 fL 6.2-12.0 [facility] Platelets (Bld) [#/Vol] 228 10*3/uL 150-450 [facility] No Panel InformationOrdered By: Jill Zelaya on 12-08-2023 Estimated GFR (MDRD) Amer 76 mL/min >60 [facility] Comment on above: GFR Calc Estimated GFR (MDRD) Non-Af Amer 63 mL/min >60 [facility] Comment on above: Non- GFR Calc Miscellaneous Test See comment [facility] Comment on above: TEST RESULTS LIMITSJ AK2 Mutation Analysis, Qual JAK2 V617F mutation detectionResult: NEGATIVE for the JAK2 V617F mutation.Interpretation: The G to T nucleotide change encoding the S657Rbocgzwnx was not detected. This result does not [...] within exon 14 of the JAK2 gene ([id number]) encoding avaline to phenylalanine substitution at position 617 of the QJH6bzrfcib (V617F) has been identified in most patients [...] type (WT) and JAK2 mutant V617F. The [employer] Absolute Quantitation software will compare the patient specimen valuse to the standard curves and generate percent values for wild type and mutant type.In vitro studies have indicated that this assay has an analyticalsensitivity of 1%.References:Garfield EJ, Sarath RANDALL, Lucho PJ, et al. Acquired mutation of thetyrosine kinase JAK2 in human myeloproliferative disorders. Lancet.2005 Dec 20-; 365(7219):4225-0461.Christian Mandel, Fabien V, Alondra Miller JP. A unique clonal JAK2 mutation leading to constitutive signaling causes polycythaemia vera. Nature. 2005 Jan 29; 215(1319):9039-6857.Emery R, Peter F, Michelle , et al. A xakg-em-vfbqjuvnwobacmwg of JAK2 in myeloproliferative disorders. N Engl J Med. 2005 Jan 29; 352(27):1639-7327.Director Review: Technical Component performed at [facility] RTPProfessional Component performed by:Carolynn Marrero, PhD, FACMGDirector, Molecular [id number] , [place] [phone]: This test was developed and its performance characteristicsdetermined by [facility]. It has not been cleared or approvedby the Food and Drug Administration. TESTING PERFORMED AT [facility]. ORIGINAL REPORT ON FILE IN LAB CONTAINS ADDITIONAL TEST SITE INFORMATION. VLDL Cholesterol 20 mg/dL 5-40 [facility] RBC Auto (Bld) [#/Vol]Ordere d By: Jill Zelaya on 12-08-2023 RBC (Bld) [#/Vol] 4.26 10*6/uL 4.2-5.4 [facility] Serum or plasma calcium baljit urement (mass/volume)Ordered By: Jill Zelaya on 12-08-2023 Calcium [Mass/Vol] 8.9 mg/dL 8.5-10.1 [facility] Serum or plasma creatinine m easurement (mass/volume)Ordered By: Jill Zelaya on 12-08-2023 Creatinine [Mass/Vol] 0.96 mg/dL 0.55-1.02 [facility] Comment on above: The validity of the calculated GFR & GFRAA in patients over 70 years has not been determined. Clinical correlation is essential. Serum or plasma thyroid stim ulating hormone (TSH) measurement (units/volume)Ordered By: Jill Zelaya on 12-08-2023 TSH Qn 1.29 uIU/mL 0.358-3.74 [facility] Serum or plasma urea nitroge n measurement (mass/volume)Ordered By: Jill Zelaya on 12-08-2023 Urea nitrogen [Mass/Vol] 12 mg/dL 7-18 [facility] Thin prep Papanicolaou smear with manual screeningOrdered By: Jill Zelaya on 12-08-2023 Thin prep Papanicolaou smear with manual screening 3.6 g/dL 3.2-5.0 [facility] Thin prep Papanicolaou smear with manual screening 9 U/L 15-37 [facility] Thin prep Papanicolaou smear with manual screening 4 5-15 [facility] Laboratory - Microbiology an d Antimicrobial susceptibilityOrdered By: Zoraida Segura on 11-05-2023 SARS-CoV-2 (COVID-19) RNA HANNAH+probe Ql (Unsp spec) [facility] 36on 03-12-2023 36 [facility] no answer left a detailed message for scheduling Normal [facility] Absolute lymphocyte countOrd ered By: Dr. Zelaya on 09-24-2022 Lymphocytes Auto (Unsp spec) [#/Vol] 0.95 10*3/uL 0.83-4.51 [facility] Basophil percentageOrdered B y: Dr. Zelaya on 09-24-2022 Basophil percentage < 0.2 AI 0.0-0.9 [facility] Basophils/100 WBC (Bld) 0.8 % 0-1 [facility] Eosinophils/100 WBC (Bld) 5.7 % 0-5 [facility] Neutrophils (Bld) [#/Vol] 4.3 10*3/uL 2.0-7.7 [facility] Neutrophils/100 WBC (Bld) 72.3 % 47-70 [facility] WBC (Bld) [#/Vol] 5.9 10*3/uL 4.4-11.0 [facility] Blood erythrocytes count (nu mber/volume)Ordered By: Dr. Zelaya on 09-24-2022 RBC (Bld) [#/Vol] 4.27 10*6/uL 4.2-5.4 [facility] Blood hemoglobin measurement (mass/volume)Ordered By: Dr. Zelaya on 09-24-2022 Hemoglobin (Bld) [Mass/Vol] 13.3 g/dL 12.0-15.0 [facility] Blood lymphocytes/100 leukoc ytesOrdered By: Dr. Zelaya on 09-24-2022 Lymphocytes/100 WBC (Bld) 16.0 % 19-41 [facility] Blood monocytes/100 leukocyt esOrdered By: Dr. Zelaya on 09-24-2022 Monocytes/100 WBC (Bld) 4.9 % 0-10 [facility] Blood platelet mean volumeOr dered By: Dr. Zelaya on 09-24-2022 Platelet mean volume (Bld) [Entitic vol] 9.8 fL 6.2-12.0 [facility] Determination of erythrocyte mean corpuscular volume (MCV)Ordered By: Dr. Zelaya on 09-24-2022 MCV (RBC) [Entitic vol] 95.8 fL 81-99 W [facility] Erythrocyte sedimentation ra teOrdered By: Dr. Zelaya on 09-24-2022 ESR (Bld) [Velocity] 5 mm/h 0-30 [facility] Hematocrit Auto (Bld) [Volum e fraction]Ordered By: Dr. Zelaya on 09-24-2022 Hematocrit (Bld) [Volume fraction] 40.9 % 37-47 [facility] Interpretation of Borrelia b urgdorferi antibody assayOrdered By: Dr. Zelaya on 09-24-2022 B. burgdorferi Ab (S) [Interp] REF LAB [facility] Laboratory - Hematology and Cell countsOrdered By: Dr. Zelaya on 09-24-2022 Erythrocyte distribution width (RBC) [Entitic vol] 42.5 fL 35.1-43.9 [facility] Erythrocyte distribution width (RBC) [Ratio] 12.2 % 11.6-14.6 [facility] Immature granulocytes/100 WBC (Bld) 0.300 % 0.0-0.9 [facility] Comment on above: IG% - Immature Granu locytes (promyelocytes, myelocytes and metamyelocytes) > 1% indicates that a LEFT SHIFT is Present. MCH (RBC) [Entitic mass] 31.1 pg 27.0-32.0 [facility] Nucleated RBC/100 WBC (Bld) [Ratio] 0 % 0-5 [facility] MCHC Auto (RBC) [Mass/Vol]Or dered By: Dr. Zelaya on 09-24-2022 MCHC (RBC) [Mass/Vol] 32.5 g/dL 32-36 [facility] No Panel InformationOrdered By: Dr. Zelaya on 09-24-2022 Centromere B Antibody <0.2 AI 0.0-0.9 [facility] MILLING MACHINE OPERATOR GEAR Antibody <0.2 AI 0.0-0.9 [facility] Platelets bldOrdered By: Dr. Zelaya on 09-24-2022 Platelets (Bld) [#/Vol] 247 10*3/uL 150-450 [facility] Serum DNA double strand anti body assay (units/volume)Ordered By: Dr. Zelaya on 09-24-2022 DNA double strand Ab Qn (S) 4 [IU]/mL 0-9 [facility] Comment on above: Negative <5 Equivoca l 5 - 9 Positive >9 Serum Steffany-1 antibody assay (u nits/volume)Ordered By: Dr. Zelaya on 09-24-2022 Steffany-1 extractable nuclear Ab Qn (S) <0.2 AI 0.0-0.9 [facility] Serum Scl-70 extractable nuc lear antibody assay (units/volume)Ordered By: Dr. Zelaya on 09-24-2022 SCL-70 extractable nuclear Ab Qn (S) <0.2 AI 0.0-0.9 [facility] Serum Upton extractable nucl ear antibody detectionOrdered By: Dr. Zelaya on 09-24-2022 Upton extractable nuclear Ab Ql (S) <0.2 AI 0.0-0.9 [facility] Thin prep Papanicolaou smear with manual screeningOrdered By: Dr. Zelaya on 09-24-2022 Thin prep Papanicolaou smear with manual screening Negative Negative [facility] Comment on above: Lyme antibodies not detected. Reflex testing is notindicated.No laboratory evidence of infection with B. burgdorferi(Lyme disease). Negative results may occur in patientsrecently infected (less than or equal to 14 days) with B.burgdorferi. If recent infection is suspected, repeattesting on a new sample collected in 7 to 14 days isrecommended.Performed at: [address] [id number] Director: Jeff Rodriguez PhD, Phone: [phone] 24 hour urine alpha 2 globul in/total protein ratio by electrophoresis (mass fraction)Ordered By: Dr. Corbin on 09-10-2022 Alpha 2 globulin Elph (24H U) [Mass fraction] 17.3 % . [facility] 24 hour urine beta globulin/ total protein ratio by electrophoresis (mass fraction)Ordered By: Dr. Corbin on 09-10-2022 Beta globulin Elph (24H U) [Mass fraction] 47.9 % . [facility] 24 hour urine gamma globulin /total protein ratio by electrophoresis (mass fraction)Ordered By: Dr. Corbin on 09-10-2022 Gamma globulin Elph (24H U) [Mass fraction] 9.3 % . [facility] Albumin Elph [Mass/Vol]Order ed By: Dr. Corbin on 09-10-2022 Albumin [Mass/Vol] 3.9 g/dL 2.9-4.4 [facility] Basophil percentageOrdered B y: Dr. Corbin on 09-10-2022 Basophil percentage 3 ug/L 0-9 [facility] Comment on above: Detection Limit = 1 Bilirubin [Mass/Vol] 0.20 mg/dL 0.20-1.00 [facility] Comment on above: For patients on eltr ombopag therapy, use of Dimension [place] TBIL is not recommended. Chloride [Moles/Vol] 104 mmol/L 98-107 [facility] Glucose [Mass/Vol] 96 mg/dL 74-106 [facility] Potassium [Moles/Vol] 4.0 mmol/L 3.5-5.1 [facility] Protein [Mass/Vol] 6.5 g/dL 6.4-8.2 [facility] Sodium [Moles/Vol] 140 mmol/L 136-145 [facility] Blood mercury measurement (m ass/volume)Ordered By: Dr. Corbin on 09-10-2022 Mercury (Bld) [Mass/Vol] < 1.0 ug/L 0.0-14.9 [facility] Comment on above: Environmental Exposu re: <15.0 Occupational Exposure: BOY - Inorganic Mercury: 15.0 Detection Limit = 1.0 Erythrocyte sedimentation ra teOrdered By: Dr. Corbin on 09-10-2022 ESR (Bld) [Velocity] mm/h 0-30 [facility] Interpretation of serum or p lasma protein pattern by immunofixation (narrative resultOrdered By: Dr. Corbin on 09-10-2022 Protein Fractions Immunofixation Ino [Interp] See comment [facility] Comment on above: Result: Not Observed Laboratory - Chemistry and C hemistry - challengeOrdered By: Dr. Corbin on 09-10-2022 ALP [Catalytic activity/Vol] 73 U/L 45-117 [facility] ALT [Catalytic activity/Vol] 20 U/L 13-56 [facility] CO2 [Moles/Vol] 29.0 mmol/L 21.0-32.0 [facility] Cobalamin (Vitamin B12) [Mass/Vol] 453 pg/mL 211-911 [facility] Urea nitrogen/Creatinine [Mass ratio] 16.7 mg/mg 10-20 [facility] No Panel InformationOrdered By: Dr. Corbin on 09-10-2022 Addendum Document Comment . [facility] Comment on above: Protein electrophore sis scan will follow via computer,mail, or financial foundations representative delivery. Estimated GFR (MDRD) Amer 83 mL/min >60 [facility] Comment on above: GFR Calc Estimated GFR (MDRD) Non-Af Amer 68 mL/min >60 [facility] Comment on above: Non- GFR Calc Lead < 1.0 ug/dL 0.0-3.4 [facility] Comment on above: Testing performed by Inductively coupled plasma/MassSpectrometry. Environmental Exposure: WHO Recommendation <20.0 Occupational Exposure: OSHA Lead Std 40.0 BOY 30.0 Detection Limit = 1.0This test was developed and its performancecharacteristics determined by [employer]. It has not beencleared or approved by the Food and Drug Administration. Urine Immunofixation PEP Note Comment . [facility] Comment on above: Protein electrophore sis scan will follow via computer,mail, or financial foundations representative delivery. Vitamin B6 Level 16.7 ug/L 3.4-65.2 [facility] Comment on above: Deficiency: <3.4 Mar ginal: 3.4 - 5.1 Adequate: >5.1 Whole Blood Vitamin B1 Level 238.4 nmol/L 66.5-200.0 [facility] Comment on above: Performed at: [facility] [employer] [id number] Director: Jeff Rodriguez PhD, Phone: [phone] at: [facility] [address] [id number] Director: Kd Hannon MD, Phone: [phone] Serum [id number] measu rement by electrophoresisOrdered By: Dr. Corbin on 09-10-2022 Alpha 1 globulin Elph [Mass/Vol] 0.2 g/dL 0.0-0.4 [facility] Alpha 1 globulin Elph [Mass/Vol] 0.6 g/dL 0.4-1.0 [facility] Serum globulin measurement ( mass/volume)Ordered By: Dr. Corbin on 09-10-2022 Globulin (S) [Mass/Vol] 2.5 g/dL 2.2-3.9 [facility] Serum or plasma C reactive p rotein measurement (mass/volume)Ordered By: Dr. Corbin on 09-10-2022 CRP [Mass/Vol] mg/L 0.0-3.0 [facility] Comment on above: C-Reactive Protein ( CRP) provides useful information for thediagnosis, therapy and monitoring of inflammatory processesand associated diseases. For the evaluation of Relative Riskfor Cardiovascular Disease, a High Sensitivity CRP (HSCRP)should be ordered. Serum or plasma IgA measurem ent (mass/volume)Ordered By: Dr. Corbin on 09-10-2022 IgA [Mass/Vol] 94 mg/dL 87-352 [facility] Serum or plasma IgG measurem ent (mass/volume)Ordered By: Dr. Corbin on 09-10-2022 IgG [Mass/Vol] 775 mg/dL [phone] [facility] Serum or plasma IgM measurem ent (mass/volume)Ordered By: Dr. Corbin on 09-10-2022 IgM [Mass/Vol] 66 mg/dL 26-217 [facility] Serum or plasma albumin baljit urement (mass/volume)Ordered By: Dr. Corbin on 09-10-2022 Albumin [Mass/Vol] 3.8 g/dL 3.2-5.0 [facility] Serum or plasma albumin/glob ulin mass ratioOrdered By: Dr. Corbin on 09-10-2022 Albumin/Globulin [Mass ratio] 1.4 {ratio} 0.9-2.4 [facility] Serum or plasma beta globuli n measurement by electrophoresis (mass/volume)Ordered By: Dr. Corbin on 09-10-2022 Beta globulin Elph [Mass/Vol] 0.8 g/dL 0.7-1.3 [facility] Serum or plasma calcium baljit urement (mass/volume)Ordered By: Dr. Corbin on 09-10-2022 Calcium [Mass/Vol] 9.2 mg/dL 8.5-10.1 [facility] Serum or plasma creatinine m easurement (mass/volume)Ordered By: Dr. Corbin on 09-10-2022 Creatinine [Mass/Vol] 0.90 mg/dL 0.55-1.02 [facility] Comment on above: The validity of the calculated GFR & GFRAA in patients over 70 years has not been determined. Clinical correlation is essential. Serum or plasma gamma globul in measurement by electrophoresis (mass/volume)Ordered By: Dr. Corbin on 09-10-2022 Gamma globulin Elph [Mass/Vol] 0.8 g/dL 0.4-1.8 [facility] Serum or plasma immunoelectr ophoresis interpretation (nominal result)Ordered By: Dr. Corbin on 09-10-2022 Interpretation IEP [Interp] Comment . [facility] Comment on above: No monoclonality det ected. Serum or plasma urea nitroge n measurement (mass/volume)Ordered By: Dr. Corbin on 09-10-2022 Urea nitrogen [Mass/Vol] 15 mg/dL 7-18 [facility] Thin prep Papanicolaou smear with manual screeningOrdered By: Dr. Corbin on 09-10-2022 Thin prep Papanicolaou smear with manual screening 7 U/L 15-37 [facility] Thin prep Papanicolaou smear with manual screening 7 5-15 [facility] Thin prep Papanicolaou smear with manual screening 1.6 0.7-1.7 [facility] Total protein bloodOrdered B y: Dr. Corbin on 09-10-2022 Protein [Mass/Vol] 6.4 g/dL 6.0-8.5 [facility] Urine albumin/total protein mass ratio by electrophoresisOrdered By: Dr. Corbin on 09-10-2022 Albumin Elph (U) [Mass fraction] 17.6 % . [facility] Urine alpha 1 globulin/total protein ratio by electrophoresis (mass fraction)Ordered By: Dr. Corbin on 09-10-2022 Alpha 1 globulin Elph (U) [Mass fraction] 7.8 % . [facility] Urine monoclonal protein/tot al protein mass ratio by electrophoresisOrdered By: Dr. Corbin on 09-10-2022 Protein.monoclonal Elph (U) [Mass fraction] See comment [facility] Comment on above: Result: Not Observed Urine protein measurement (m ass/volume)Ordered By: Dr. Corbin on 09-10-2022 Protein (U) [Mass/Vol] mg/dL 0.0-11.8 [facility] Protein (U) [Mass/Vol] 6.0 mg/dL Not Estab. [facility] Whole blood hemoglobin A1c/t otal hemoglobin ratio (mass fraction)Ordered By: Dr. Corbin on 09-10-2022 HbA1c (Bld) [Mass fraction] 5.6 % 3.8-5.6 [facility] Comment on above: Normal < 5.7 % Predi abetic 5.7 - 6.4 % Diabetic >or= 6.5 % Please note range changes. Basophil percentageOrdered B y: Dr. Pride on 07-16-2022 Bilirubin [Mass/Vol] 0.30 mg/dL 0.20-1.00 [facility] Comment on above: For patients on eltr ombopag therapy, use of Dimension [place] TBIL is not recommended. Chloride [Moles/Vol] 108 mmol/L 98-107 [facility] Glucose [Mass/Vol] 91 mg/dL 74-106 [facility] Potassium [Moles/Vol] 4.0 mmol/L 3.5-5.1 [facility] Protein [Mass/Vol] 7.2 g/dL 6.4-8.2 [facility] Sodium [Moles/Vol] 141 mmol/L 136-145 [facility] Laboratory - Chemistry and C hemistry - challengeOrdered By: Dr. Pride on 07-16-2022 ALP [Catalytic activity/Vol] 72 U/L 45-117 [facility] ALT [Catalytic activity/Vol] 18 U/L 13-56 [facility] CO2 [Moles/Vol] 29.0 mmol/L 21.0-32.0 [facility] Globulin (S) [Mass/Vol] 3.2 g/dL 2.2-4.2 [facility] Urea nitrogen/Creatinine [Mass ratio] 14.7 mg/mg 10-20 [facility] No Panel InformationOrdered By: Dr. Pride on 07-16-2022 Estimated GFR (MDRD) Amer 84 mL/min >60 [facility] Comment on above: GFR Calc Estimated GFR (MDRD) Non-Af Amer 69 mL/min >60 [facility] Comment on above: Non- GFR Calc Vitamin D 25-Hydroxy 52.3 ng/mL [facility] Comment on above: Vitamin D 25(OH) Sta tus Range Deficiency <20 ng/mL (50nmol/L) Insufficiency 20 - 30 ng/mL (50 - 75 nmol/L) Sufficiency 30 - 100 ng/mL (75 - 250 nmol/L) Toxicity >100 ng/mL (>250 nmol/L) Serum or plasma albumin baljit urement (mass/volume)Ordered By: Dr. Pride on 07-16-2022 Albumin [Mass/Vol] 4.0 g/dL 3.2-5.0 [facility] Serum or plasma albumin/glob ulin mass ratioOrdered By: Dr. Pride on 07-16-2022 Albumin/Globulin [Mass ratio] 1.2 {ratio} 0.9-2.4 [facility] Serum or plasma calcium baljit urement (mass/volume)Ordered By: Dr. Pride on 07-16-2022 Calcium [Mass/Vol] 9.5 mg/dL 8.5-10.1 [facility] Serum or plasma creatinine m easurement (mass/volume)Ordered By: Dr. Pride on 07-16-2022 Creatinine [Mass/Vol] 0.89 mg/dL 0.55-1.02 [facility] Comment on above: The validity of the calculated GFR & GFRAA in patients over 70 years has not been determined. Clinical correlation is essential. Serum or plasma urea nitroge n measurement (mass/volume)Ordered By: Dr. Pride on 07-16-2022 Urea nitrogen [Mass/Vol] 13 mg/dL 7-18 [facility] Thin prep Papanicolaou smear with manual screeningOrdered By: Dr. Pride on 07-16-2022 Thin prep Papanicolaou smear with manual screening 8 U/L 15-37 [facility] Thin prep Papanicolaou smear with manual screening 4 5-15 [facility] Basophil percentageon 2021 Bilirubin [Mass/Vol] 0.40 mg/dL 0.20-1.00 [facility] Work Phone: Comment on above: For patients on eltr ombopag therapy, use of Dim[place] TBIL is not recommended. Chloride [Moles/Vol] 106 mmol/L 98-[address] [facility] Work Phone: Cholesterol [Mass/Vol] 170 mg/dL <200 [place] [facility] [facility] Work Phone: Comment on above: <200 mg/dL Desirable 200-240 mg/dL Borderline >240 mg/dL High Risk Glucose [Mass/Vol] 92 mg/dL 74-106 [facility] Work Phone: [phone] Potassium [Moles/Vol] 4.0 mmol/L 3.5-5.1 [address] [facility] Work Phone: [phone] Protein [Mass/Vol] 7.0 g/dL 6.4-8.2 [facility] Work Phone: [phone] Sodium [Moles/Vol] 139 mmol/L 136-145 [facility] Work Phone: Triglyceride [Mass/Vol] 156 mg/dL <199 [facility] Work Phone: Comment on above: The drugs N-Acetylcy steine and Metamizole may falsely depress this assay.Serum Triglycerides Reference Interval Normal <150 mg/dL Borderline high 150 - 199 mg/dL High 200 - 499 mg/dL Very High > or = 500 mg/dL Laboratory - Chemistry and C hemistry - challengeon 03-19-2022 ALP [Catalytic activity/Vol] 63 U/L 45-117 [facility] Work Phone: ALT [Catalytic activity/Vol] 23 U/L 13-56 [facility] Work Phone: CO2 [Moles/Vol] 26.0 mmol/L 21.0-32.0 [facility] Work Phone: Globulin (S) [Mass/Vol] 3.3 g/dL 2.2-4.2 [facility] Work Phone: Urea nitrogen/Creatinine [Mass ratio] 17.1 mg/mg 10-20 [facility] Work Phone: No Panel Informationon 03-19 Estimated GFR (MDRD) Amer 85 mL/min >60 [facility] Work Phone: Comment on above: GFR Calc Estimated GFR (MDRD) Non-Af Amer 71 mL/min >60 [facility] Work Phone: Comment on above: Non- GFR Calc Thyroid Stimulating Hormone (TSH) 1.32 uIU/mL 0.358-3.74 [facility] Work Phone: Vitamin D 25-Hydroxy 41.7 ng/mL [facility] Work Phone: Comment on above: Vitamin D 25(OH) Sta tus Range Deficiency <20 ng/mL (50nmol/L) Insufficiency 20 - 30 ng/mL (50 - 75 nmol/L) Sufficiency 30 - 100 ng/mL (75 - 250 nmol/L) Toxicity >100 ng/mL (>250 nmol/L) Serum or plasma albumin baljit urement (mass/volume)on 03-19-2022 Albumin [Mass/Vol] 3.7 g/dL 3.2-5.0 [facility] Work Phone: Serum or plasma albumin/glob ulin mass ratioon 03-19-2022 Albumin/Globulin [Mass ratio] 1.1 {ratio} 0.9-2.4 [facility] Work Phone: Serum or plasma calcium baljit urement (mass/volume)on 03-19-2022 Calcium [Mass/Vol] 8.8 mg/dL 8.5-10.1 [facility] Work Phone: Serum or plasma cholesterol in HDL measurement (mass/volume)on 03-19-2022 Cholesterol in HDL [Mass/Vol] 67 mg/dL >40 [facility] Work Phone: Comment on above: The drugs N-Acetylcy steine and Metamizole may falsely depress this assay. Reference Range HDL <40 mg/dL Low HDL Cholesterol HDL >or= 60 mg/dL High HDL Cholesterol Serum or plasma cholesterol in VLDL measurement (mass/volume)on 03-19-2022 Cholesterol in VLDL [Mass/Vol] 31 mg/dL 5-40 [facility] Work Phone: Serum or plasma creatinine m easurement (mass/volume)on 03-19-2022 Creatinine [Mass/Vol] 0.88 mg/dL 0.55-1.02 [facility] Work Phone: Comment on above: The validity of the calculated GFR & GFRAA in patients over 70 years has not been determined. Clinical correlation is essential. Serum or plasma low density lipoprotein (LDL) cholesterol measurement (mass/volume)on 03-19-2022 Cholesterol in LDL [Mass/Vol] 72 mg/dL 0-130 [facility] Work Phone: Serum or plasma urea nitroge n measurement (mass/volume)on 03-19-2022 Urea nitrogen [Mass/Vol] 15 mg/dL 7-18 [facility] Work Phone: Thin prep Papanicolaou smear with manual screeningon 03-19-2022 Thin prep Papanicolaou smear with manual screening 15 U/L 15-37 [facility] Work Phone: Thin prep Papanicolaou smear with manual screening 7 5-15 [facility] Work Phone: Vital Signs Date Time Vital Sign Value Performing Clinician Faci lity 05-01-2025 12:49-0400 Body height 175.[address] Jill Zelaya MD Work Phone: [facility] 05-01-2025 12:45-0400 Body mass index (BMI) [Ratio] 29.5 kg/m2 Dr. Jill Zelaya MD Work Phone: [facility] 05-01-2025 12:45-0400 Body weight 90.[address] Jill Zelaya MD Work Phone: [facility] 05-01-2025 12:45-0400 Diastolic blood pressure 78 mm[Hg] Dr. Jill Zelaya MD Work Phone: [facility] 05-01-2025 12:45-0400 Heart rate 82 /min Dr. Jill Zelaya MD Work Phone: [facility] 05-01-2025 12:45-0400 Respiratory rate 18 /min Dr. Jill Zelaya MD Work Phone: [facility] 05-01-2025 12:45-0400 Systolic blood pressure 108 mm[Hg] Dr. Jill Zelaya MD Work Phone: [facility] 04-27-2025 14:02-0400 Body height 175.[address] Jill Zelaya MD Work Phone: [facility] 04-27-2025 14:02-0400 Body mass index (BMI) [Ratio] 29.2 kg/m2 Dr. Jill Zelaya MD Work Phone: [facility] 04-27-2025 14:02-0400 Body temperature 96.3 [degF] Dr. Jill Zelaya MD Work Phone: [facility] 04-27-2025 14:02-0400 Body weight 89.[address] Jill Zelaya MD Work Phone: [facility] 04-27-2025 14:02-0400 Diastolic blood pressure 72 mm[Hg] Dr. Jill Zelaya MD Work Phone: [facility] 04-27-2025 14:02-0400 Heart rate 76 /min Dr. Jill Zelaya MD Work Phone: [facility] 04-27-2025 14:02-0400 Respiratory rate 16 /min Dr. Jill Zelaya MD Work Phone: [facility] 04-27-2025 14:02-0400 SaO2% (BldA) [Mass fraction] 94 % Dr. Jill Zelaya MD Work Phone: [facility] 04-27-2025 14:02-0400 Systolic blood pressure 128 mm[Hg] Dr. Jill Zelaya MD Work Phone: [facility] 03-29-2025 09:37-0400 Body height 175.[address] Jill Zelaya MD Work Phone: [facility] 03-29-2025 09:37-0400 Body mass index (BMI) [Ratio] 29.5 kg/m2 Dr. Jill Zelaya MD Work Phone: [facility] 03-29-2025 09:37-0400 Body weight 90.[address] Jill Zelaya MD Work Phone: [facility] 03-29-2025 09:37-0400 Diastolic blood pressure 67 mm[Hg] Dr. Jill Zelaya MD Work Phone: [facility] 03-29-2025 09:37-0400 Heart rate 76 /min Dr. Jill Zelaya MD Work Phone: [facility] 03-29-2025 09:37-0400 Respiratory rate 18 /min Dr. Jill Zelaya MD Work Phone: [facility] 03-29-2025 09:37-0400 Systolic blood pressure 103 mm[Hg] Dr. Jill Zelaya MD Work Phone: [facility] 03-16-2025 10:34-0400 Body height 175.[address] Jill Zelaya MD Work Phone: [facility] 03-16-2025 09:38-0400 Diastolic blood pressure 68 mm[Hg] Dr. Jill Zelaya MD Work Phone: [facility] 03-16-2025 09:38-0400 Heart rate 60 /min Dr. Jill Zelaya MD Work Phone: [facility] 03-16-2025 09:38-0400 Systolic blood pressure 108 mm[Hg] Dr. Jill Zelaya MD Work Phone: [facility] 03-16-2025 08:26-0400 Body temperature 98.3 [degF] Dr. Jill Zelaya MD Work Phone: [facility] 03-16-2025 08:26-0400 Respiratory rate 16 /min Dr. Jill Zelaya MD Work Phone: [facility] 03-16-2025 08:26-0400 SaO2% (BldA) [Mass fraction] 98 % Dr. Jill Zelaya MD Work Phone: [facility] 03-16-2025 06:00-0400 Body mass index (BMI) [Ratio] 30.8 kg/m2 Dr. Jill Zelaya MD Work Phone: [facility] 03-16-2025 06:00-0400 Body weight 94.[address] Jill Zelaya MD Work Phone: [facility] 03-15-2025 14:00-0400 Inhaled oxygen flow rate 4 L/min Dr. Jill Zelaya MD Work Phone: [facility] 03-07-2025 15:04-0400 Body height 175.[address] Jill Zelaya MD Work Phone: [facility] 03-07-2025 15:04-0400 Body mass index (BMI) [Ratio] 29.7 kg/m2 Dr. Jill Zelaya MD Work Phone: [facility] 03-07-2025 15:04-0400 Body temperature 97.2 [degF] Dr. Jill Zelaya MD Work Phone: [facility] 03-07-2025 15:04-0400 Body weight 91.[address] Jill Zelaya MD Work Phone: [facility] 03-07-2025 15:04-0400 Diastolic blood pressure 73 mm[Hg] Dr. Jill Zelaya MD Work Phone: [facility] 03-07-2025 15:04-0400 Heart rate 70 /min Dr. Jill Zelaya MD Work Phone: [facility] 03-07-2025 15:04-0400 Respiratory rate 18 /min Dr. Jill Zelaya MD Work Phone: [facility] 03-07-2025 15:04-0400 SaO2% (BldA) [Mass fraction] 99 % Dr. Jill Zelaya MD Work Phone: [facility] 03-07-2025 15:04-0400 Systolic blood pressure 105 mm[Hg] Dr. Jill Zelaya MD Work Phone: [facility] 01-25-2025 13:05-0400 Body mass index (BMI) [Ratio] 28.2 kg/m2 Dr. Jill Zelaya MD Work Phone: [facility] 01-25-2025 13:05-0400 Body temperature 97.6 [degF] Dr. Jill Zelaya MD Work Phone: [facility] 01-25-2025 13:05-0400 Body weight 86.[address] Jill Zelaya MD Work Phone: [facility] 01-25-2025 13:05-0400 Diastolic blood pressure 66 mm[Hg] Dr. Jill Zelaya MD Work Phone: [facility] 01-25-2025 13:05-0400 Heart rate 98 /min Dr. Jill Zelaya MD Work Phone: [facility] 01-25-2025 13:05-0400 Respiratory rate 16 /min Dr. Jill Zelaya MD Work Phone: [facility] 01-25-2025 13:05-0400 SaO2% (BldA) [Mass fraction] 97 % Dr. Jill Zelaya MD Work Phone: [facility] 01-25-2025 13:05-0400 Systolic blood pressure 114 mm[Hg] Dr. Jill Zelaya MD Work Phone: [facility] 01-19-2025 12:24-0400 Body mass index (BMI) [Ratio] 28.2 kg/m2 Dr. Jill Zelaya MD Work Phone: [facility] 01-19-2025 12:24-0400 Body weight 86.[address] Jill Zelaya MD Work Phone: [facility] 01-19-2025 12:24-0400 Diastolic blood pressure 57 mm[Hg] Dr. Jill Zelaya MD Work Phone: [facility] 01-19-2025 12:24-0400 Systolic blood pressure 92 mm[Hg] Dr. Jill Zelaya MD Work Phone: [facility] 12-07-2024 12:58-0500 Body height 175.[address] Jill Zelaya MD Work Phone: [facility] 12-07-2024 12:58-0500 Body mass index (BMI) [Ratio] 29.5 kg/m2 Dr. Jill Zelaya MD Work Phone: [facility] 12-07-2024 12:58-0500 Body temperature 97.8 [degF] Dr. Jill Zelaya MD Work Phone: [facility] 12-07-2024 12:58-0500 Body weight 90.[address] Jill Zelaya MD Work Phone: [facility] 12-07-2024 12:58-0500 Diastolic blood pressure 80 mm[Hg] Dr. Jill Zelaya MD Work Phone: [facility] 12-07-2024 12:58-0500 Heart rate 99 /min Dr. Jill Zelaya MD Work Phone: [facility] 12-07-2024 12:58-0500 Respiratory rate 17 /min Dr. Jill Zelaya MD Work Phone: [facility] 12-07-2024 12:58-0500 SaO2% (BldA) [Mass fraction] 97 % Dr. Jill Zelaya MD Work Phone: [facility] 12-07-2024 12:58-0500 Systolic blood pressure 104 mm[Hg] Dr. Jill Zelaya MD Work Phone: [facility] 11-14-2024 11:49-0500 Body mass index (BMI) [Ratio] 29.1 kg/m2 Dr. Jill Zelaya MD Work Phone: [facility] 11-14-2024 11:49-0500 Body weight 89.[address] Jill Zelaya MD Work Phone: [facility] 11-14-2024 11:49-0500 Diastolic blood pressure 73 mm[Hg] Dr. Jill Zelaya MD Work Phone: [facility] 11-14-2024 11:49-0500 Heart rate 93 /min Dr. Jill Zelaya MD Work Phone: [facility] 11-14-2024 11:49-0500 Systolic blood pressure 115 mm[Hg] Dr. Jill Zelaya MD Work Phone: [facility] 10-17-2024 11:45-0500 Body mass index (BMI) [Ratio] 30.9 kg/m2 Dr. Jill Zelaya MD Work Phone: [facility] 10-17-2024 11:45-0500 Body weight 94.[address] Jill Zelaya MD Work Phone: [facility] 10-17-2024 11:45-0500 Diastolic blood pressure 71 mm[Hg] Dr. Jill Zelaya MD Work Phone: [facility] 10-17-2024 11:45-0500 Systolic blood pressure 111 mm[Hg] Dr. Jill Zelaya MD Work Phone: [facility] 03-30-2024 16:47-0400 Body mass index (BMI) [Ratio] 27.41 kg/m2 Rosina Aparicio MD Work Phone: [facility] 03-30-2024 16:47-0400 Body weight 86.64 kg Rosina Aparicio MD Work Phone: [facility] 03-30-2024 16:47-0400 Diastolic blood pressure 70 mm[Hg] Rosina Aparicio MD Work Phone: [facility] 03-30-2024 16:47-0400 Heart rate 72 /min Rosina Aparicio MD Work Phone: [facility] 03-30-2024 16:47-0400 Systolic blood pressure 113 mm[Hg] Rosina Aparicio MD Work Phone: [facility] 12-09-2023 15:03-0500 Body height 177.8 cm Rosina Aparicio MD Work Phone: [facility] 12-09-2023 15:03-0500 Body weight 84.37 kg Rosina Aparicio MD Work Phone: [facility] 12-09-2023 15:03-0500 Diastolic blood pressure 65 mm[Hg] Rosina Aparicio MD Work Phone: [facility] 12-09-2023 15:03-0500 Heart rate 83 /min Rosina Aparicio MD Work Phone: [facility] 12-09-2023 15:03-0500 SaO2% (BldA) [Mass fraction] 100 % Rosina Aparicio MD Work Phone: [facility] 12-09-2023 15:03-0500 Systolic blood pressure 123 mm[Hg] Rosina Aparicio MD Work Phone: [facility] 11-05-2023 14:26-0500 Body height 175.[address] Jill Zelaya Work Phone: [facility] 11-05-2023 14:26-0500 Body mass index (BMI) [Ratio] 28.2 kg/m2 Dr. Jill Zelaya Work Phone: [facility] 11-05-2023 14:26-0500 Body temperature 97.7 [degF] Dr. Jill Zelaya Work Phone: [facility] 11-05-2023 14:26-0500 Body weight 86.[address] Jill Zelaya Work Phone: [facility] 11-05-2023 14:26-0500 Diastolic blood pressure 72 mm[Hg] Dr. Jill Zelaya Work Phone: [facility] 11-05-2023 14:26-0500 Heart rate 71 /min Dr. Jill Zelaya Work Phone: [facility] 11-05-2023 14:26-0500 Respiratory rate 16 /min Dr. Jill Zelaya Work Phone: [facility] 11-05-2023 14:26-0500 SaO2% (BldA) [Mass fraction] 99 % Dr. Jill Zelaya Work Phone: [facility] 11-05-2023 14:26-0500 Systolic blood pressure 118 mm[Hg] Dr. Jill Zelaya Work Phone: [facility] 10-14-2023 13:03-0500 Body mass index (BMI) [Ratio] 27.4 kg/m2 Dr. Jill Zelaya Work Phone: [facility] 10-14-2023 13:03-0500 Body weight 85.[address] Jill Zelaya Work Phone: [facility] 10-07-2023 13:28-0500 Body mass index (BMI) [Ratio] 28 kg/m2 Dr. Jill Zelaya Work Phone: [facility] 10-07-2023 13:28-0500 Body temperature 98.3 [degF] Dr. Jill Zelaya Work Phone: [facility] 10-07-2023 13:28-0500 Body weight 86.[address] Jill Zelaya Work Phone: [facility] 10-07-2023 13:28-0500 Diastolic blood pressure 72 mm[Hg] Dr. Jill Zelaya Work Phone: [facility] 10-07-2023 13:28-0500 Heart rate 82 /min Dr. Jill Zelaya Work Phone: [facility] 10-07-2023 13:28-0500 Respiratory rate 16 /min Dr. Jill Zelaya Work Phone: [facility] 10-07-2023 13:28-0500 SaO2% (BldA) [Mass fraction] 98 % Dr. Jill Zelaya Work Phone: [facility] 10-07-2023 13:28-0500 Systolic blood pressure 114 mm[Hg] Dr. Jill Zelaya Work Phone: [facility] 03-11-2023 09:49-0400 Body height 176.[address] Jill Zelaya Work Phone: [facility] 03-11-2023 09:49-0400 Body mass index (BMI) [Ratio] 26 kg/m2 Dr. Jill Zelaya Work Phone: [facility] 03-11-2023 09:49-0400 Body weight 81.[address] Jill Zelaya Work Phone: [facility] 03-05-2023 09:09-0400 Body weight 80.74 kg Rory Diez MD Work Phone: [facility] 03-05-2023 09:09-0400 Diastolic blood pressure 76 mm[Hg] Rory Diez MD Work Phone: [facility] 03-05-2023 09:09-0400 Heart rate 78 /min Rory Diez MD Work Phone: [facility] 03-05-2023 09:09-0400 Systolic blood pressure 110 mm[Hg] Rory Diez MD Work Phone: [facility] 03-04-2023 07:31-0400 Body mass index (BMI) [Ratio] 26.3 kg/m2 Dr. Jill Zelaya Work Phone: [facility] 03-04-2023 07:31-0400 Body temperature 98.4 [degF] Dr. Jill Zelaya Work Phone: [facility] 03-04-2023 07:31-0400 Body weight 82.[address] Jill Zelaya Work Phone: [facility] 03-04-2023 07:31-0400 Diastolic blood pressure 82 mm[Hg] Dr. Jill Zelaya Work Phone: [facility] 03-04-2023 07:31-0400 Heart rate 79 /min Dr. Jill Zelaya Work Phone: [facility] 03-04-2023 07:31-0400 Respiratory rate 14 /min Dr. Jill Zelaya Work Phone: [facility] 03-04-2023 07:31-0400 SaO2% (BldA) [Mass fraction] 99 % Dr. Jill Zelaya Work Phone: [facility] 03-04-2023 07:31-0400 Systolic blood pressure 130 mm[Hg] Dr. Jill Zelaya Work Phone: [facility] 12-03-2022 08:07-0500 Body mass index (BMI) [Ratio] 26.2 kg/m2 Dr. Jill Zelaya Work Phone: [facility] 12-03-2022 08:07-0500 Body temperature 96.2 [degF] Dr. Jill Zelaya Work Phone: [facility] 12-03-2022 08:07-0500 Body weight 81.[address] Jill Zelaya Work Phone: [facility] 12-03-2022 08:07-0500 Diastolic blood pressure 74 mm[Hg] Dr. Jill Zelaya Work Phone: [facility] 12-03-2022 08:07-0500 Heart rate 82 /min Dr. Jill Zelaya Work Phone: [facility] 12-03-2022 08:07-0500 Respiratory rate 18 /min Dr. Jill Zelaya Work Phone: [facility] 12-03-2022 08:07-0500 SaO2% (BldA) [Mass fraction] 97 % Dr. Jill Zelaya Work Phone: [facility] 12-03-2022 08:07-0500 Systolic blood pressure 108 mm[Hg] Dr. Jill Zelaya Work Phone: [facility] 09-24-2022 10:40-0500 Body temperature 96.7 [degF] Dr. Rory Pride Work Phone: [facility] 09-24-2022 10:40-0500 Body weight 81.[address] Rory Pride Work Phone: [facility] 09-24-2022 10:40-0500 Diastolic blood pressure 60 mm[Hg] Dr. Rory Pride Work Phone: [facility] 09-24-2022 10:40-0500 Heart rate 78 /min Dr. Rory Pride Work Phone: [facility] 09-24-2022 10:40-0500 Respiratory rate 16 /min Dr. Rory Pride Work Phone: [facility] 09-24-2022 10:40-0500 SaO2% (BldA) [Mass fraction] 97 % Dr. Rory Pride Work Phone: [facility] 09-24-2022 10:40-0500 Systolic blood pressure 106 mm[Hg] Dr. Rory Pride Work Phone: [facility] 06-17-2022 15:00-0400 Body height 176.[address] Rory Pride Work Phone: [facility] Work Phone: 06-17-2022 15:00-0400 Body mass index (BMI) [Ratio] 26.4 kg/m2 Dr. Rory Pride Work Phone: [facility] Work Phone: 06-17-2022 15:00-0400 Body weight 82.[address] Rory Pride Work Phone: [facility] Work Phone: 03-05-2022 10:50-0400 Body height 176.[address] Rory Pride Work Phone: [facility] Work Phone: 03-05-2022 10:50-0400 Body mass index (BMI) [Ratio] 28 kg/m2 Dr. Rory Pride Work Phone: [facility] Work Phone: 03-05-2022 10:50-0400 Body weight 87.[address] Rory Pride Work Phone: [facility] Work Phone: Encounters Encounter Date Encounter Type Care Provider Facility Start: 08-02-2025 End: 08-02-2025 ambulatory JILL G NATHALIE Facility:[facility] Start: 07-26-2025 End: 07-26-2025 ambulatory Jill Nathalie Facility:[facility] Start: 05-03-2025 ambulatory Jill Muenster Facility :[facility] Start: 05-01-2025 End: 05-01-[address] Yuli Ames MD -[facility] Work Phone: Start: 05-01-2025 End: 05-01-[address] Jill Zelaya MD Work Phone: -[facility] Start: 04-30-2025 End: 04-30-[address] Almas Poole MD -[facility] Start: 04-30-2025 End: 04-30-[address] Jill Zelaya MD Work Phone: -[facility] Start: 04-27-2025 End: 04-27-2025 Patient encounter procedure Clarence HUERTA -[facility] Work Phone: Start: 04-27-2025 End: 04-27-[address] Jill Zelaya MD Work Phone: -[facility] Start: 04-09-2025 End: 04-09-[address] Fernando Ontiveros MD -[facility] Work Phone: Start: 04-09-2025 End: 04-09-[address] Jill Zelaya MD Work Phone: -[facility] Start: 04-04-2025 ambulatory [facility] Start: 04-04-2025 Registered Referred Georgette HUERTA -[facility] Work Phone: Start: 03-30-2025 Encounter for other preprocedural examination Fernando Ontiveros [facility] Start: 03-29-2025 End: 03-29-2025 Patient encounter procedure Georgette HUERTA -[facility] Work Phone: Start: 03-29-2025 End: 03-29-[address] Jill Zelaya MD Work Phone: [facility] Work Phone: Start: 03-28-2025 End: 03-28-[address] Fernando Ontiveros MD -[facility] Work Phone: Start: 03-28-2025 End: 03-28-[address] Jill Zelaya MD Work Phone: [facility] Work Phone: Start: 03-16-2025 Non-patient / Non-visit Dr. Fernando Ontiveros MD -[facility] Start: 03-16-2025 Non-patient / Non-visit Dr. Sidney Byrd [facility] Work Phone: Start: 03-15-2025 Non-patient / Non-visit Dr. Sidney Byrd [facility] Work Phone: Start: 03-15-2025 ambulatory Alma Marques Facility:[facility] Start: 03-15-2025 Non-patient / Non-visit Dr. Alma black MD -[facility] Start: 03-15-2025 ambulatory Sidney Gregg Facility:[facility] Start: 03-15-2025 End: 03-16-2025 Evaluation and management of inpatient Dr. Fernando Ontiveros MD -[facility] Work Phone: Start: 03-15-2025 ambulatory Fernando Ontiveros Facility :[facility] Start: 03-15-2025 Non-patient / Non-visit Dr. Fernando Ontiveros MD -[facility] Start: 03-13-2025 End: 03-13-2025 ambulatory Fernando Ontiveros Facility:[facility] Start: 03-13-2025 End: 03-13-2025 Non-patient / Non-visit Dr. Edgardo Lacy MD -[facility] Work Phone: Start: 03-07-2025 End: 03-07-[address] Fernando Ontiveros MD -[facility] Work Phone: Start: 03-07-2025 End: 03-07-[address] Jill Zelaya MD Work Phone: [facility] Work Phone: Start: 03-06-2025 End: 03-06-[address] Jill Zelaya MD Work Phone: [facility] Work Phone: Start: 03-06-2025 End: 03-06-[address] Fatemeh Urbina MD -[facility] Work Phone: Start: 03-06-2025 End: 03-06-2025 ambulatory Fatemeh Urbina Facility:[facility] Start: 01-25-2025 End: 01-25-[address] Jill Zelaya MD -[facility] Work Phone: Start: 01-25-2025 End: 01-25-2025 ambulatory Jill Muenster Facility:[facility] Start: 01-19-2025 End: 01-19-[address] Yuli Ames MD -[facility] Work Phone: Start: 01-19-2025 End: 01-19-2025 ambulatory Jill Muenster Facility:[facility] Start: 12-27-2024 End: 12-27-[address] Jill Zelaya MD Work Phone: [facility] Work Phone: Start: 12-27-2024 End: 12-27-[address] David David MD -Lab, [facility] Start: 12-27-2024 End: 12-27-2024 ambulatory Jill Nathalie Facility:[facility] Start: 12-07-2024 End: 12-07-[address] David David MD -[facility] Work Phone: Start: 12-07-2024 End: 12-07-2024 ambulatory Jill Muenster Facility:[facility] Start: 11-14-2024 End: 11-14-[address] Yuli Ames MD -[facility] Work Phone: Start: 11-14-2024 End: 11-14-2024 ambulatory Jill Muenster Facility:[facility] Start: 10-17-2024 End: 10-17-[address] Yuli Ames MD -[facility] Work Phone: Start: 10-17-2024 End: 10-17-[address] Yuli Ames MD [facility] Start: 10-17-2024 End: 10-17-2024 ambulatory Jill Zelaya Facility:[facility] Start: 08-17-2024 End: 08-17-2024 ambulatory Jill Zelaya Facility:[facility] Start: 08-15-2024 End: 08-15-2024 ambulatory David Gurrolamajo Facility:[facility] Start: 08-03-2024 End: 08-03-2024 ambulatory Jill Zelaya Facility:[facility] Start: 03-30-2024 End: 03-30-2024 Patient encounter procedure Rosina Aparicio MD Work Phone: [facility] Comment on above: Erythromelalgia (HCC ) (Primary Dx); Raynaud's disease without gangrene Start: 12-09-2023 End: 12-09-2023 Patient encounter procedure Rosina Aparicio MD Work Phone: [facility] Comment on above: Erythromelalgia (HCC ) (Primary Dx); Neuropathy; Small fiber neuropathy; Acrocyanosis (HCC) Start: 12-08-2023 End: 12-08-[address] Jill Zelaya Work Phone: [facility] Work Phone: Start: 12-08-2023 End: 12-08-[address] Jill Zelaya Work Phone: [facility]atory, [facility] Start: 11-11-2023 End: 11-11-[address] Jill Zelaya Work Phone: [facility] Work Phone: Start: 11-11-2023 End: 11-11-[address] Jill Zelaya Work Phone: [facility]-Physical Therapy Work Phone: Start: 11-11-[address] Denis Zelaya Work Phone: [facility] Work Phone: Start: 11-08-[address] Denis Zelaya Work Phone: [facility] Work Phone: Start: 11-05-2023 End: 11-05-[address] Jill Zelaya Work Phone: [facility] Work Phone: Start: 11-05-2023 End: 11-05-[address] Jill Zelaya Work Phone: [facility] Work Phone: Start: 10-27-2023 End: 10-27-[address] Jill Zelaya Work Phone: [facility] Work Phone: Start: 10-14-2023 End: 10-14-[address] Jill Zelaya Work Phone: [facility] Work Phone: Start: 10-07-2023 End: 10-07-[address] Jill Zelaya Work Phone: [facility] Work Phone: Start: 03-23-2023 End: 03-23-[address] Jill Zelaya Work Phone: [facility] Work Phone: Start: 03-23-2023 End: 03-23-[address] Jill Zelaya Work Phone: [facility]-Outpatient Breast Imaging Start: 03-11-2023 End: 03-11-[address] 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 Jill Zelaya Work Phone: [facility] Start: 12-03-2022 End: 12-03-[address] Jill Zelaya Work Phone: [facility] Start: 10-23-2022 End: 10-23-[address] Rory Pride Work Phone: [facility] Work Phone: Start: 10-23-2022 End: 10-23-[address] Rory Pride Work Phone: [facility]-Pulmonary Services/Neurology Start: 09-24-2022 End: 09-24-[address] Rory Pride Work Phone: [facility] Work Phone: Start: 09-24-2022 End: 09-24-[address] Rory Pride Work Phone: [facility] Start: 09-24-2022 End: 09-24-[address] Rory Pride Work Phone: [facility] Start: 09-10-2022 End: 09-10-[address] Rory Pride Work Phone: [facility] Start: 07-16-2022 End: 07-16-[address] Rory Pride Work Phone: [facility] Work Phone: Start: 07-16-2022 End: 07-16-[address] Rory Pride Work Phone: [facility] Start: 07-02-2022 End: 07-02-[address] Rory Pride Work Phone: [facility] Start: 06-30-2022 End: 06-30-[address] Rory Pride Work Phone: [facility] Work Phone: Start: 06-30-2022 End: 06-30-[address] Rory Pride Work Phone: [facility] Start: 06-17-2022 End: 06-17-[address] Rory Pride Work Phone: [facility] Start: 06-04-2022 End: 06-04-[address] Rory Pride Work Phone: [facility] Work Phone: Start: 06-04-2022 End: 06-04-[address] Rory Pride Work Phone: [facility]-Outpatient Breast Imaging Start: 03-19-2022 End: 03-19-[address] Rory Pride Work Phone: [facility] Start: 03-05-2022 End: 03-05-[address] Rory Pride Work Phone: [facility] Procedures Date Procedure Procedure Detail Performing Clinician Start: 03-16-[address] Jill Zelaya MD Work Phone: Start: 03-15-2025 D-dimer assay, quantitative Dr. Jill Zelaya MD Work Phone: Comment on above: NORMAL D-Dimer level (<0.50) indicates no DVT or PE. Start: 03-15-[address] Jill Zelaya MD Work Phone: Start: 03-06-2025 US scan of gallbladder Dr. Jill Zelaya MD Work Phone: Start: 11-05-2023 SARS-CoV-2, Influenz a & RSV (PCR) Dr. Jill Zelaya Work Phone: Start: 10-27-2023 Plain x-ray of pelvi s and lower extremity Dr. Jill Zelaya Work Phone: Start: 10-27-2023 X-ray of lumbar spin e, two or three views Dr. Jill Zelaya Work Phone: Start: 03-23-2023 Bilateral mammography D junie Zelaya Work Phone: Start: 03-23-[address] Jill Zelaya Work Phone: Start: 06-30-2022 MRI of lumbar spine Dr. Rory Pride Work Phone: Start: 06-17-[address] Edie Pride Work Phone: Start: 06-17-2022 X-ray of lumbar spin e, two or three views Dr. Rory Pride Work Phone: Start: 06-04-2022 Screening mammography D rEdie Pride Work Phone: Start: 11-12-2014 Mammography Rory stark MD Work Phone: Start: 06-28-2013 Lipid 1996 panel - S joana or Plasma Rosina Aparicio MD Work Phone: Start: 09-08-2006 Colonoscopy Rory stark MD Work Phone: History of cholecystectomy S/P laparoscopic cholecystectomy Dr. Jill Zelaya MD Work Phone: History of cholecystectomy S/P laparoscopic cholecystectomy Dr. Fernando Ontiveros MD History of cholecystectomy S/P cholecystectomy Dr. Fernando Ontiveros MD History of cholecystectomy S/P cholecystectomy Dr. Fernando Ontiveros MD Plan of Treatment Date Care Activity Detail Author Start: 07-19-2033 Urine microalbumin profile DTaP,Tdap,Td Vaccine (4 - Td or Tdap) [facility] Start: 04-30-2025 Plain x-ray of pelvis and lower extremity HIP, UNI W/ Pelvis 2-3 Views [facility] Start: 04-30-2025 XR Pelvis and Hip Views [facility] Start: 03-16-2025 Patient discharge [facility] Start: 03-15-2025 Application of intermittent pneumatic compression device [facility] Start: 03-15-2025 Following clinical pathway protocol [facility] Start: 03-15-2025 Assessment of risk of venous thromboembolism [facility] Start: 03-15-2025 Continuous pulse oximetry [facility] Start: 03-15-2025 Insertion of catheter into peripheral vein [facility] Start: 03-15-2025 Measuring intake and output [facility] Start: 03-15-2025 Providing care according to standard [facility] Start: 03-15-2025 Referral to reuse technician [facility] Start: 03-15-2025 Referral to general surgeon [facility] Start: 03-15-2025 Vital signs measurements [facility] Start: 03-15-2025 [facility] Start: 03-15-2025 Admission procedure [facility] Start: 03-15-2025 Inhalation therapy procedure [facility] Start: 03-15-2025 [facility] Start: 06-04-2024 Influenza vaccination Influenza Vaccine (#1) [facility] Start: 12-08-2023 Procedure [facility] Start: 2023 RSV Vaccine (1 - 1-dose 60+ series) RSV Vaccine (1 - 1-dose 60+ series) [facility] Start: 10-07-2023 Patient referral [facility] Work Phone: Start: 10-04-2023 Behavioral Health Screening Behavioral Health Screening [facility] Start: 10-04-2023 Depression Assessment Depression Assessment [facility] Start: 06-04-2023 Covid-19 Vaccine () Covid-19 Vaccine () [facility] Start: 03-05-2023 End: 05-05-2023 CBC panel - Blood by Automated count CBC Lab Routine Erythromelalgia (HCC) Expected: 03/05/2023, Expires: 05/05/2023 [facility] Work Phone: Comment on above: Expected: 03/05/2023, Expires: 3 Start: 03-05-2023 End: 05-05-2023 JAK2 gene targeted mutation analysis in Blood or Tissue by Molecular genetics method [id number] MUTATION BLOOD Lab Routine Erythromelalgia (HCC) Expected: 03/05/2023, Expires: 05/05/2023 [facility] Work Phone: Comment on above: Expected: 03/05/2023, Expires: 3 Start: 10-04-2022 DEPRESSION ASSESSMENT DEPRESSION ASSESSMENT [facility] Start: 01-23-2021 COVID-19 VACCINE (3 - Booster for Moderna series) COVID-19 VACCINE (3 - Booster for Moderna series) [facility] Start: 03-05-2019 Urine microalbumin profile DTAP,TDAP,TD (3 - Td or Tdap) [facility] Start: 06-28-2018 Lipid panel Lipid Screening [facility] Start: 06-28-2018 LIPID SCREEN LIPID SCREEN [facility] Start: 10-30-2017 DIABETES SCREEN DIABETES SCREEN [facility] Start: 10-30-2017 Diabetes Screening Diabetes Screening [facility] Start: 09-08-2016 Colonoscopy COLONOSCOPY [facility] Start: 09-08-2016 COLORECTAL CANCER SCREENING COLORECTAL CANCER SCREENING [facility] Start: 09-08-2016 Screening for malignant neoplasm of colon [facility] Start: 11-12-2015 Mammography MAMMOGRAM [facility] Start: 11-12-2015 Screening for malignant neoplasm of breast Mammogram Screening [facility] Start: 2013 SHINGRIX VACCINE (1 of 2) SHINGRIX VACCINE (1 of 2) [facility] Start: 2008 COLOGUARD (FIT-DNA) COLOGUARD (FIT-DNA) [facility] Start: [address] COLONOGRAPHY [facility] Start: 2008 FECAL OCCULT BLOOD FECAL OCCULT BLOOD [facility] Start: 2008 Screening for malignant neoplasm of colon [facility] Start: 2008 SIGMOIDOSCOPY SIGMOIDOSCOPY [facility] Start: 1981 HEPATITIS C SCREENING HEPATITIS C SCREENING [facility] Start: 1981 Hepatitis C screening Hepatitis C Screening [facility] Start: 1981 HIV SCREENING HIV SCREENING [facility] Start: 1981 HIV screening HIV Screening [facility] Cardiac event recording [facility] CBC W Auto Different ial panel - Blood [facility] CT angiography of co ronary arteries [facility] Electrocardiographic procedure [facility] Work Phone: Electrocardiographic procedure [facility] Lipid 1996 panel - S joana or Plasma [facility] Patient referral [facility] Work Phone: End: 03-05-2024 PVR ANK/BECKER/TOE PACO VAS LAB PVR ANK/BECKER/TOE PACO VAS LAB Vascular Lab Routine Erythromelalgia (HCC) 1 Occurrences starting 03/05/2023 until 03/05/2024 [facility] Work Phone: Comment on above: 1 Occurrences starting 03/05/2023 until 03/05/2024 Thyroid stimulating hormone measurement [facility] End: 12-08-2024 US Lower extremity artery - bilateral PVR ANK/BECKER/TOE PACO VAS LAB Vascular Lab Routine Erythromelalgia (HCC) 1 Occurrences starting 12/09/2023 until 12/08/2024 [facility] Work Phone: Comment on above: 1 Occurrences starting 12/09/2023 until 12/08/2024 [facility] Immunizations Immunization Date Immunization Notes Care Provider Fa cili 01-25-[address] Jill Zelaya MD Work Phone: [facility] 08-03-2024 influenza, injectabl e, madin judy canine kidney, preservative free Dr. Jill Zelaya MD Work Phone: [facility] 08-03-2024 Influenza, injectabl e, Madin Judy Canine Kidney, preservative free, quadrivalent Dr. Jill Zelaya MD Work Phone: [facility] 08-03-[address] Jill Zelaya MD Work Phone: [facility] 01-20-2024 pneumococcal polysaccharide vaccine, [address] Jill Zelaya MD Work Phone: [facility] 07-19-2023 tetanus toxoid, redu jesus diphtheria toxoid, and acellular pertussis vaccine, adsorbed Dr. Jill Zelaya Work Phone: [facility] 07-02-2023 influenza, injectabl e, quadrivalent, preservative free Dr. Jill Zelaya Work Phone: [facility] 07-02-2023 influenza virus vaccine, unspecified formulation Rosina Aparicio MD Work Phone: [facility] 09-24-2022 influenza, injectabl e, quadrivalent, preservative free Dr. Jill Zelaya Work Phone: [facility] 09-24-2022 influenza, seasonal, injectable Dr. Rory Pride Work Phone: [facility] 11-28-2020 Covid (Moderna) Dr. Rory alejandre Work Phone: [facility] 10-31-2020 Covid (Moderna) Dr. Rory alejandre Work Phone: [facility] 07-19-2015 influenza virus vaccine, unspecified formulation Rory Diez MD Work Phone: [facility] 07-10-2014 influenza, injectabl e, quadrivalent, preservative free Dr. Jill Zelaya Work Phone: [facility] 07-10-2014 influenza, seasonal, injectable Dr. Rory Pride Work Phone: [facility] 07-24-2013 influenza virus vaccine, unspecified formulation Rory Diez MD Work Phone: [facility] Work Phone: 07-04-2012 influenza virus vaccine, unspecified formulation Rory Diez MD Work Phone: [facility] 07-25-2009 novel [id number], preservative-free, injectable Dr. Rory Pride Work Phone: [facility] 03-05-2009 tetanus toxoid, redu jesus diphtheria toxoid, and acellular pertussis vaccine, adsorbed Rory Diez MD Work Phone: [facility] 08-18-2006 influenza virus vaccine, unspecified formulation Rory Diez MD Work Phone: [facility] Work Phone: 11-09-2005 measles, mumps and rubella virus vaccine Rory Diez MD Work Phone: [facility] 10-08-2005 measles, mumps and rubella virus vaccine Rory Diez MD Work Phone: [facility] 05-14-2003 hepatitis B vaccine, adult dosage Rory Diez MD Work Phone: [facility] Work Phone: 04-12-2003 diphtheria and tetan us toxoids, adsorbed for pediatric use Rory Diez MD Work Phone: [facility] Work Phone: 04-12-2003 hepatitis B vaccine, adult dosage Rory Diez MD Work Phone: [facility] Work Phone: Payers Date Payer Category Payer Self-pay [id number] 2023 Private Health Insurance KAMILA Mayela SERAFIN [facility] [id number] 2023-Present [phone] [address] [place] [id number] O [id number] 2023 Unknown [id number] 2022 Unknown [id number] .[id number] Unknown [id number] Unknown [id number] Unknown [facility] PACKAGE PLAN [id number] Unknown [id number] 2.16.840.1.448499.3.579.2.4 62 Unknown [id number] 2.16.840.1.790536.3.579.2.4 62 Unknown [id number] 2.16.840.1.590060.3.579.2.4 62 Unknown [id number] 2.16.840.1.077380.3.579.2.4 62 Unknown [id number] 2.16.840.1.969962.3.579.2.4 62 Unknown [id number] 2.16.840.1.417169.3.579.2.4 62 Unknown [id number] 2.16.840.1.685171.3.579.2.4 62 Unknown [id number] 2.16.840.1.117096.3.579.2.4 62 Unknown [id number] 2.16.840.1.033251.3.579.2.4 62 Unknown [id number] 2.16.840.1.910979.3.579.2.4 62 Unknown [id number] 2.16.840.1.271091.3.579.2.4 62 Unknown [id number] 2.16.840.1.019816.3.579.2.4 62 Unknown [id number] 2.16.840.1.846011.3.579.2.4 62 Unknown [id number] 2.16.840.1.135541.3.579.2.4 62 Unknown [id number] 2.16.840.1.678963.3.579.2.4 62 Unknown [id number] 2.16.840.1.532656.3.579.2.4 62 Unknown [id number] 2.16.840.1.906649.3.579.2.4 62 Unknown [id number] 2.16.840.1.620249.3.579.2.4 62 Unknown [id number] 2.16.840.1.200390.3.579.2.4 62 Unknown [id number] 2.16.840.1.532595.3.579.2.4 62 Unknown [id number] 2.16.840.1.573747.3.579.2.4 62 Unknown [id number] 2.16.840.1.798857.3.579.2.4 62 Unknown [id number] 2.16.840.1.199689.3.579.2.4 62 Unknown [id number] 2.16.840.1.544864.3.579.2.4 62 Unknown [id number] 2.16.840.1.048040.3.579.2.4 62 Unknown [id number] 2.16.840.1.795464.3.579.2.4 62 Unknown [id number] 2.16.840.1.632547.3.579.2.4 62 Unknown [id number] 2.16.840.1.590298.3.579.2.4 62 Unknown [id number] 2.16.840.1.226034.3.579.2.4 62 Unknown [id number] 2.16.840.1.907477.3.579.2.4 62 Social History Date Type Detail Facility Start: 03-05-2022 End: 01-19-2024 Tobacco smoking status KYIS Unknown if ever smoked [facility] Start: 1965 Sex Assigned At Female W [facility] Start: 09-14-2011 End: 05-01-2025 Tobacco smoking status NHIS Never smoked tobacco [facility] Start: 09-14-2011 Tobacco use and exposure Smokeless tobacco non-user [facility] Start: 05-20-2022 End: 03-30-2024 Alcohol intake Current drinker of alcohol (finding) [facility] Start: 05-17-2012 Alcohol Comment occasionally [facility] Start: 03-05-2023 End: 12-09-2023 History of Social function [facility] Start: 03-05-2023 End: 12-09-2023 Tobacco use panel [facility] National Score (1-100), lower number is lower risk 66 [facility] Start: 02-13-2023 Gender identity Identifies as female gender (finding) [facility] Start: 02-13-2023 Sexual orientation Heterosexual (fin ding) [facility] Start: 12-30-2024 Sex Female (finding) [facility] NEGATED: Highlighted row Not [facility] Medical Equipment Procedure Code Equipment Code Equipment Original Text Equipment Identifier Dates Robot-assisted laparoscopic cholecystectomy without cholangiography CLIP,HEMDON HARPER FDA Start: 03-15-2025 Robot-assisted laparoscopic cholecystectomy without cholangiography CLIP,PEPE HARPER FDA Start: 03-15-2025 Robot-assisted laparoscopic cholecystectomy without cholangiography CLIP,HEMDON HARPER FDA Start: 03-15-2025 Robot-assisted laparoscopic cholecystectomy without cholangiography CLIP,HEMDON HARPER FDA Start: 03-15-2025 Robot-assisted laparoscopic cholecystectomy without cholangiography CLIP,HEMDON HARPER FDA Start: 03-15-2025 Robot-assisted laparoscopic cholecystectomy without cholangiography CLIP,HEMDON HARPER FDA Start: 03-15-2025 Robot-assisted laparoscopic cholecystectomy without cholangiography CLIP,HEMDON HARPER FDA Start: 03-15-2025 Robot-assisted laparoscopic cholecystectomy without cholangiography CLIP,HEMDON HARPER FDA Start: 03-15-2025 Robot-assisted laparoscopic cholecystectomy without cholangiography CLIP,HEMDON HARPER FDA Start: 03-15-2025 Robot-assisted laparoscopic cholecystectomy without cholangiography CLIP,HEMDON HARPER FDA Start: 03-15-2025 Robot-assisted laparoscopic cholecystectomy without cholangiography CLIP,PEPE HARPER FDA Start: 03-15-2025 Robot-assisted laparoscopic cholecystectomy without cholangiography CLIP,PEPE HARPER FDA Start: 03-15-2025 Robot-assisted laparoscopic cholecystectomy without cholangiography CLIP,PEPE HARPER FDA Start: 03-15-2025 Robot-assisted laparoscopic cholecystectomy without cholangiography CLIP,PEPE HARPER FDA Start: 03-15-2025 Robot-assisted laparoscopic cholecystectomy without cholangiography CLIP,PEPE HARPER FDA Start: 03-15-2025 Robot-assisted laparoscopic cholecystectomy without cholangiography CLIP,PEPE HARPER FDA Start: 03-15-2025 Goals Date Patient Goal Desired Activity /State Personal health goal Functional Status Date Assessment Result Facility 03-16-2025 Functional status Ambulates [facility] Work Phone: Mental Status Date Assessment Result Facility 03-16-2025 Cognitive function Voice/Name [facility] Work Phone: Clinical Notes 05-31-2011 to 08-02-2025 Note Date & Type Note Facility 08-02-2025 Note HNO ID: [id number] Author: GIANA AMOR, DO Service: ? Author Type: Physician Type: Progress Notes Filed: 08/03/2025 13:43 Note Text: CHIEF COMPLAINT: Patient presents with: Right Hip - New, Pain PAIN EVALUATION 08/02/2025 1301 08/02/2025 1410 Pain Level: 6 6 Pain Location: Hip-Right Hip-Right Description: Burning;Dull;Radiating;Sharp;Throbbing Aching;Throbbing;Sharp Duration Amount of Time: -- 9 Duration Units: -- Years Frequency: Intermittent Continuous Intervention/Comfort measure: Medication;Reposition;Relaxation;Cold;Dis tractions;Education;Emotional Support/Reassurance;Exercise;Heat;Pillow support;Positioning Declined HISTORY OF PRESENT ILLNESS: The patient is a 59-year-old female with chronic low back pain and erythromelalgia, presenting for evaluation of worsening deep right hip pain limiting ambulation. Accompanied by her . This has been present for at least 9 years. Right Hip Pain: - Chronic right hip pain, worsening over the past 2-2.5 years. - Pain is deep. - Aggravated by walking and standing (really any weight bearing activity); alleviated by sitting and lying in a specific position. - Severe pain when weight-bearing, causing limping and inability to walk long distances. - Pain has significantly impacted daily activities and quality of life. - Recent bupivacaine, lidocaine, and Depo-Medrol injection by ortho provided 75% relief for less than 2 weeks. - Previous physical therapy and home exercises (e.g., clamshells) with minimal relief. - No known trauma or injury to the hip. - Denies any previous intra-articular hip injections. Lower Back Pain: - Diagnosed with scoliosis, with noticeable curvature at L2 and L3. - Reports loss of one inch in height. - Previous MRI of the spine in 2017 showed scoliosis. - History of severe back pain with shocks in the back, treated with multiple steroid injections. - Underwent radiofrequency ablations on facet joints L3, L4, and L5, which provided significant relief at OSH. This really helped her back pain, but the hip pain persisted and worsened. - Previous SI joint injections over a year ago as well. - Denies current back pain, but still has pain that can radiate into the lower leg. Erythromelalgia: - Diagnosed with erythromelalgia at [facility]. - Symptoms include swelling, redness, and stabbing pain in the feet when hot. - Uses a topical cream for symptom management. - EMG showed numbness in toes, with worsening numbness recently. 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 Allergies and current medications reviewed. Notes reviewed: Ortho Surg 2016 Last Hgba1c: No results found for: HBA1C Last Creatinine: Creatinine Date Value Ref Range Status 10/30/2014 0.82 0.70 - 1.40 mg/dL Final 03/20/2014 0.84 0.70 - 1.40 mg/dL Final Last Vitamin D: Vitamin D 25 Hydroxy (ng/mL) Date Value 10/30/2014 26.3 PHYSICAL EXAMINATION: Body Habitus: well nourished and no acute distress Orientation: Normal: Oriented to person, place and time Psych: normal Specific MSK Exam RIGHT HIP: Inspection - Deformity: No., Atrophy: No. Gait - antalgic SLR - right Negative, left Negative Palpation - Greater trochanter: Negative Gluteus medius: Negative Piriformis: Positive ROM - Right hip: Flexion: 120 IR: 20 ER: 40 Pain with ROM: No Left hip: Flexion: 120 IR: 20 ER: 40 Pain with ROM: No Strength Supine HF 4+/5 with no pain Upright HF 4+/5 with no pain Adduction 5/5 with no pain Abduction 5/5 with no pain Sensation - normal to light touch Reflexes - N/A Special Tests - Anterior impingement: Negative Dynamic labral stress: Negative ABBE: Negative No tenderness of midline or paraspinal L-spine Able to forward flex without issue No pain with lumbar extension Mild discomfort into buttocks with facet loading IMAGING: Final results and radiologist's interpretation, available in the [facility] health record. Images were reviewed with the patient/family members in the office today. My personal interpretation of the performed imaging is chronic degenerative changes of L-spine. CLINICAL IMPRESSION: (M25.551) Pain in right hip (primary encounter diagnosis) (M51.362) Degeneration of intervertebral disc of lumbar region with discogenic back pain and lower extremity pain (M47.816) Facet arthropathy, lumbar (M41.9) Scoliosis of lumbar spine, unspecified scoliosis type (M25.551) (more content not included)... [facility] 08-02-2025 Note HNO ID: [id number] Author: MARIAN LISA RT(R) Service: ? Author Type: Senior Application Programmer Type: Progress Notes Filed: 08/02/2025 13:35 Note Text: Radiology Service Progress Note PATIENT NAME: Moreno Vanessa DATE OF SERVICE: August 02, 2025 TIME: 1:35 PM PATIENT IDENTITY VERIFICATION COMPLETED USING TWO (2) IDENTIFIERS: Name and Date of confirmed by patient verbally. FALL SCREENING: Has the patient had 2 falls in the last year or 1 fall with injury or currently using an Ambulatory Assistive Device (Walker, Cane, Wheelchair, Crutches, etc.)? No PATIENT GENDER DATA: Assigned female at . status: : No status: NO. PATIENT RELEVANT IMPLANT DATA REVIEWED: Not Applicable PATIENT PRESENTS WITH AN IMPLANTABLE OR ATTACHED DISPATCHER AUTOMOBILE RENTAL: No RADIOLOGY DEPARTMENT: General X-ray: Exam(s) Completed: Pelvis X-Ray: Pelvis with Hip Right PERIPHERAL IV DATA: Not applicable SIGNED BY: RT Stephani(R) August 02, 2025 1:35 PM [facility] 04-30-2025 Progress note [facility] 04-30-2025 Progress note Note Date/Time April 30, 2025 3:17pm [facility] [address] [place] [address] OFFICE VISIT Date of Service: 04/30/25 MR#: [id number] Acct: [id number] Name: RASHEEDAMORENO JOHANA Rep #: [id number] : 1965 Provider: Dr. Steve Olivier DO Age/Sex: 59/F Location: [facility] Status: Signed Intake Vital Signs 04/27/25 14:02 Height 5 ft 9 in Weight: 198 lb BMI 29.2 BP 128/72 H Blood Pressure Location Rt brachial Position Sitting Respiration 16 Pulse 76 Pulse Source Monitor Temp 96.3 F L Temp Source Temporal Pulse Oximetry (%) 94 Oxygen Delivery Method room air Intake Visit Reasons: RIGHT HIP Chief Complaint: Right Hip Pain Accompanied by: Is patient in pain?: Yes Allergies Sulfa (Sulfonamide Antibiotics) Allergy (Mild, Verified 04/30/25 14:49) rash acetaminophen (From Vicodin) Adverse Reaction (Intermediate, Verified 04/30/25 14:49) Other hydrocodone (From Vicodin) Adverse Reaction (Intermediate, Verified 04/30/25 14:49) Other Medications ?Medication ?Instructions ?Recorded ?Confirmed ?Type multivitamin 1 tab PO DAILY 06/17/2204/04 History ascorbate calcium (vitamin C) 500 500 mg PO DAILY 09/0404/30/25 History mg tablet cholecalciferol (vitamin D3) 125 125 mcg PO DAILY 09/0404/30/25 History mcg (5,000 unit) tablet flaxseed oil 1,000 mg capsule 1,000 mg PO DAILY 04/30/25 History budesonide-formoterol HFA 160 2 puff inhalation .Q4-6 PRN 11/05/23 04/30/25 Rx mcg-4.5 mcg/actuation aerosol shortness of breath or w heezing inhaler (Symbicort) #10.2 grams estradiol 1 mg tablet (Estrace) 1 mg PO DAILY #90 tabs 12/05/24 04/30/25 Rx duloxetine 60 mg capsule,delayed 60 mg PO BID #60 caps 12/07/24 04/30/25 Rx release furosemide 20 mg tablet 20 mg PO BID #60 tabs 04/30/25 Rx lidocaine-prilocaine 2.5 %-2.5 % 1 g topical .QID PRN pain #60 grams 12/07/24 04/30/25 Rx topical cream dicyclomine 10 mg capsule 10 mg PO TID #30 caps 04/30/25 Rx cetirizine 10 mg tablet (24Hour 10 mg PO DAILY PRN all ergy symptoms 03/09/25 04/30/25 History Allergy) meloxicam 7.5 mg tablet 7.5 mg PO DAILY PRN pain 03/2804/30/25 History naltrexone 8 mg-bupropion 90 mg 1 tab PO BID WT LOSS 0 03/09/25 04/30/25 History tablet,extended release (Contrave) potassium chloride 10 mEq 10 meq PO QHS 03/09/2504/30 History tablet,extended release baclofen 10 mg tablet 10 mg PO QDAY PRN muscle spa sm #30 04/04/25 04/30/25 Rx tabs metoprolol succinate 25 mg 25 mg PO DAILY #90 tabs 06/2804/30/25 Rx tablet,extended release 24 hr PFSH Medical History SVT (supraventricular tachycardia) Anxiety History of IBS History of stress test RUQ abdominal pain Wears glasses History of steroid therapy Back pain Non-smoker Colitis Leg cramps History of pain when walking History of edema Acute diarrhea Neuropathy of right foot Peripheral neuropathy Erythromelalgia Scoliosis Asthma Degenerative disc disease Depression Surgical History S/P cholecystectomy Hx of colonoscopy History of surgical procedure H/O tubal ligation S/P laparoscopic assisted vaginal hysterectomy (LAVH) delivery delivered Family History Other Adopted Social History adopted: Yes household members: spouse current occupational status: employed current occupation: [employer]'s [employer] Smoking Status: Never smoker Electronic Cigarette Use: not used alcohol intake: current alcohol intake frequency: holidays/special occasions only details: social substance use type: does not use caffeine: Yes what type of physical activity do you participate in: none seatbelt use: always do you feel safe at home: Yes additional social history: Christin VÁSQUEZ RIGHT HIP Details: This documentation accurately reflects the service provided and the decisions made by me, Dr. Billy Olivier, DO 04/30/25 0811. Part of today?s visit was documented by Steph Burdick ATC, acting as scribe. MORENO VANESSA is a 59 year old F here today for right lateral hip pain. Patient was referred by Shekhar Jones and she requests a greater trochanter bursa injection.She states she has had this pain for a couple years now. She denies any previousinjections in the greater trochanter bursa. She describes the pain right over the greater trochanter. She denies any pain down the leg at all. She states she takes Tylenol/Aleve every day. She has done a lot of physical therapy for the hip and it has never given her a lot of relief.She denies any direct falls or trauma to the lateral sided hip. She states that it does bother her when laying on the side. 10/27/2023 visit:58 year old F here today for right hip pain. Patient states thatshe has had hip pain for many years, around 2014. Patient denies any known injury. Patient denies any surgery. She states that she has had a radiofrequencyablation a few years ago which helped with her pain. Patient complains of pain over her deep anteriolateral hip. She [place] doctors in many states for her pain. She is currently doing physical therapy which is slightly helpful for her hip. She is unable to walk her dogs due to her pain. She is able to push on her hip and that helps her ambulate. Patient has increased pain with sit to side. She has no pain with laying on her side. Patient has numbness and tingling intoher right lower extremity. 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 She had an EMG with the [facility] which showed many things wrong (we do not have this). She takes tylenol and aleve as needed. She also take pregabalin. She denies any recent xrays or her hip or back. She notes thatshe has adult onset scoliosis. Plan:Patients xrays look normal. clinically She has no labral signs or bursitis. I really can not exacerbate her pain with any hip maneuver, Explained that herpain might be referred pain from her lumbar spine. She may have an MRI of her hip to evaluate for further examination to r/o AVN. She wishes to continue with physical therapy. If she continues to have pain after physical therapy will order MRI. Ortho Exam General General: Yes no acute distress and Yes well groomed Neurologic: Yes alert and Yes oriented x3 Psychologic: Yes reasonable and appropriate Right Hip Skin: Yes CDI, No Ecchymosis, No soft tissue swelling and No Erythema HIP: There is no erythema or ecchymosis pain is lateral side of her hip it is tender to palpation no gross motor or sensory deficits. Office Procedures Ortho Injections Injections Yes Greater Trochanteric Bursa Injection Right Is this a patient provided medication?: No Details: Obtained consent for injection. Under sterile conditions, injected the patientsright hip greater trochanter bursa with 4.0cc Bupivacaine, 4.0cc Lidocaine and 1.0cc Depomedrol. The patient tolerated the injection well without any noted complication. Patient should call our office if redness develops, pain worsens or if they have any concerns. Office Meds Depo-Medrol 40 mg/mL suspension for injection Performing Provider: Billy Olivier DO Performing Location: [facility] Administered by: Billy Olivier DO on 04/30/25 15:15 Dose Route Admin Location Dispensed Lot Number Expiration Date NDC Economic Historian 40 mg intra-articular Right Hip Greater Troc 1 mL [id number] 01/02/27 4112-9413-57 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 I obtained and reviewed right hip x-rays today in the clinic and reviewed these with her today. She does not have significant hip arthritis but she does have prior lumbar spine x-rays that do show lumbar Dextroscoliosis multilevel foraminal stenosis. I explained that stiff lumbar spine issues can often be associated with recurrent greater trochanteric bursitis. Patient has done physical therapy in the past and has been foam rolling on her own so recommend she continue with that and the physical therapy. Patient would like to proceed with a greater trochanter hip bursa injection today. Follow up in an as needed basis or sooner if pain, swelling, numbness or associated symptoms, or concerns develop. All questions answered. Patient in agreement of plan. 04/30/25 1517 <Electronically signed by Billy montoya DO> Date _ Billy Olivier DO Cosigner Signature: Date (if applicable) CC: ~ [place] [employer] Work Phone: [phone] 433-992406-13-2025 Discharge summary [facility] Medical Records Department [address] [place] [address] Discharge Summary 03/16/25 1017 MR#: [id number] Acct: [id number] Name: MORENO VANESSA Rep #:[id number] : 1965 59 From: Sidney Gregg DO PCP: Dr. Jill Zelaya MD Status:ADM IN Location: [facility] [id number] Providers Date of Admission: 03/15/25 Primary Care Physician: Dr. Jill Zelaya MD Consultations 03/15/25 11:17 Consult: Cardiology Routine Consulting Provider: Edgardo Lacy Reason for Consult: SVT EMERGENT Consult: No MD Notified: Yes Date Notified: 03/15/25 Time Notified: 10:39 Method of Notification: Verbal Consult: General Surgery Routine Consulting Provider: Fernando Ontiveros Reason for Consult: s/p lap rachel EMERGENT Consult: No MD Notified: Yes Date Notified: 03/15/25 Time Notified: 10:39 Method of Notification: Verbal Reason For Visit: SVT,VT Diagnosis Discharge Diagnosis (1) Tachycardia: Status: Acute Code(s): R00.0 - Tachycardia, unspecified Plan: Began SVT and it was noted on telemetry strips. Then was in SVT and it was noted on telemetry as well as an EKG. Did receive adenosine 12 mg and has sincebeen in normal sinus rhythm. I ordered the adenosine given in the PACU I ordered EKG and reviewed the pre and post adenosine EKG. Pre-EKG showed SVT as well as post showed sinus tachycardia. I have ordered troponins, echocardiogram, D-dimer and personally reviewed these tests.: Troponin series were negative. 2D echocardiogram showed EF of 60% with mild tricuspid valve insufficiency, RVSPof 3141 mmHg. Mild focal aortic valve calcification. D-dimer is negative so no PE and no CTA neededat this time. I spoke with Dr. Lacy of cardiology and he is on consultation for further input. It was reported the patient has had tachycardia palpitation type symptoms in thepast. Unclear if that is at all what were dealing with in the PACU or if that something else. Will continue to monitor patient on telemetry. Seen by cardiology. [place] it was SVT for the duration--the wide-complex tachycardia was SVT with aberrancy. Started on metoprolol succinate 25/d (2) S/P laparoscopic cholecystectomy: Status: Acute Code(s): Z90.49 - Acquired absence of other specified parts of digestive tract Plan: Discussed with svitlana Renteria for home. Pain medication Plan VTE prophylaxis with SCDs. Initially admitted to the intensive care unit for close monitoring but patient has remained stable.Will de-escalate the patient to PCU status. Medications at Discharge Home Medications multivitamin 1 tab PO DAILY 06/17/22 ascorbate calcium (vitamin C) 500 mg tablet 500 mg PO DAILY 09/24/22 cholecalciferol (vitamin D3) 125 mcg (5,000 unit) tablet 125 mcg PO DAILY 09/24/22 flaxseed oil 1,000 mg capsule 1,000 mg PO DAILY 09/24/22 budesonide-formoterol HFA 160 mcg-4.5 mcg/actuation aerosol inhaler (Symbicort) 2 puff inhalation .Q4-6 PRN shortness of breath or wheezing #10.2 grams 11/05/23 estradiol 1 mg tablet (Estrace) 1 mg PO DAILY #90 tabs 12/05/24 duloxetine 60 mg capsule,delayed release 60 mg PO BID #60 caps 12/07/24 furosemide 20 mg tablet 20 mg PO BID #60 tabs 12/07/24 lidocaine-prilocaine 2.5 %-2.5 % topical cream 1 g topical .QID PRN pain #60 grams 12/07/24 baclofen 10 mg tablet 10 mg PO QDAY PRN muscle spasm #30 tabs 01/16/25 dicyclomine 10 mg capsule 10 mg PO TID #30 caps 03/07/25 cetirizine 10 mg tablet (24Hour Allergy) 10 mg PO DAILY PRN allergy symptoms 03/09/25 meloxicam 7.5 mg tablet 7.5 mg PO DAILY PRN pain 03/09/25 naltrexone 8 mg-bupropion 90 mg tablet,extended release (Contrave) 1 tab PO BID WT LOSS 03/09/25 potassium chloride 10 mEq tablet,extended release 10 meq PO QHS 03/09/25 oxycodone-acetaminophen 5 mg-325 mg tablet (Percocet) 1 tab PO Q8H PRN pain 4 days #10 tabs 03/15/25 Hospital Course Operations - (Laparoscopic cholecystectomy) Procedures 2-D Echocardiogram Summary of Care Provided Hospital Course: This is a 59-year-old female who underwent a laparoscopic cholecystectomy on [id number]. Patient was in the PACU and has some abdominal pain and then had what appeared to be ventricular tachycardia. CODE BLUE was called. Patient did not lose consciousness. By the time that the code team arrived, patient was noted to be in SVT and no wide-complex tachycardia. Patient EKG that confirmed such. Patient received 2 mg of adenosine and then converted to sinus rhythm. Patient underwent echocardiogram thatwas unremarkable. Cardiology reviewed and thinks that she had SVT with aberrancy. Patient will be on metoprolol succinate 25 mg daily to help prevent further events in the future. Discussed with Dr. Ontiveros and patient is stable from a surgical perspective for discharge. Patient improved much faster than initially anticipated as it was concerned the patient actually did have ventricular tachycardia and would warrant further monitoring. But fortune with SVT patient issafe for discharge at this time. Weight / BMI Weight Weight: 94.4 kg Body Mass Index (BMI) 30.8 ABG / Lab / Microbiology Data 03/15/25 10:25 03/16/25 06:12 Laboratory: Laboratory Results - last 24 hr 03/15/25 10:25: WBC 12.5 H, RBC 4.04 L, Hgb 12.7, Hct 38.2, MCV 94.6, MCH 31.4, MCHC 33.2, RDW Std Deviation 43.4, RDW Coeff of Jemal 12.3, Plt Count 233, MPV 9.0, Immature Gran % (Auto) 0.400, Neut % (Auto) 89.7 H, Lymph % (Auto) 6.5 L, Dewey % (Auto) 1.8, Eos % (Auto) 1.1, Baso % (Auto) 0.5, Absolute Neuts (auto) 11.3 H, Absolute Lymphs (auto) 0.81 L, Nucleated RBC % 0, D-Dimer Quant (PE/DVT)0.38,Sodium 141, Potassium 4.4, Chloride 106, Carbon Dioxide 25.9, Anion Gap 8,BUN 14, Creatinine 0.82, Estim Creat Clear Calc 86.80, Est GFR (MDRD) Non-Af 81,BUN/Creatinine Ratio 17.1, Glucose 133 H, Calcium 8.3, Total Bilirubin 0.25, AST18, ALT 14, Alkaline Phosphatase 80, Troponin T High Sens < 6,Total Protein 6.0, Albumin 3.8, Globulin 2.2, Albumin/Globulin Ratio 1.8 03/15/25 12:15: Troponin T Hi Sens 2 Hr 8 03/15/25 14:15: Troponin T Hi Sens 4Hr 12 03/16/25 06:12: Sodium 140, Potassium 3.9, Chloride 107, Carbon Dioxide 25.8, Anion Gap 8, BUN 13, Creatinine 0.72, Estim Creat Clear Calc 100.36, Est GFR (MDRD) Non-Af 95, BUN/Creatinine Ratio 18.1,Glucose 113 H, Calcium 8.5, Magnesium 2.3 H, TSH 0.797 Radiography Diagnostic Testing: Radiology Impression Echocardiogram 03/15/25 11:17 Interpretation Summary The study was technically difficult. The LV systolic function is normal. EF is 60 %. Mild tricuspid valve insufficiency. RVSP estimated between 31-41 mmHg. Mild focal aortic valve calcification. Ordering Physician: Sidney Gregg Referring Physician: Fernando Ontiveros/Jill Zelaya Performed By: Magi Gallagher, ESTEE, RVT D/C Instructions Discharge Diet: Light diet - advance as tolerated May shower in (days): 1 Ice area for (Minutes): 30 Call your doctor if your incision/area has: Continuous Slow Oozing, Sudden Increased Bleeding, Increased Pain/ Swelling, Increased Redness, Foul Smelling Discharge and Swelling at the incision site Call your doctor if you observe: Fever of 101 or Higher Cleanse incision/area with: Soap & Water DC O2, CPAP, BIPAP Needs Home O2 Discharge instructions: No Please Follow Up With: Fernando Ontiveros MD When: 2 weeks. Please call office to schedule appointment Meaningful Use Info Meaningful Use Meaningful Use Diagnoses (Choose all that apply): None applicable Ischemic Stroke Statin Dosing Therapy Reference: STATIN DOSE THERAPY REFERENCE: * Patients > 75 years receive moderate or high dose statin therapy. * Patients 75 years or YOUNGER should receive HIGH intensity statin dose unless contraindicated. You will be required to document reason for non-treatment if statin daily dose does not meet guidelines. HIGH DOSE STATIN THERAPY DAILY Atorvastatin > than or = to 40 mg Rosuvastatin > than or = to 20 mg Amlodipine + Atorvastatin > than or = to 2.5/40 mg Ezetimibe + Simvastatin 10/80 mg Simvastatin 80mg Discharge Plan Admission Admit Date/Time: 03/15/25 10:26 Primary Reason for Your Visit: Symptomatic cholelithiasis Attending Provider: Fernando Ontiveros Primary Care Provider: Jill Zelaya Consulting Providers: Edgardo Lacy; Fernando Ontiveros Discharge Orders/Prescriptions Prescriptions: New oxycodone-acetaminophen [Percocet] 5-325 mg tablet 1 tab PO Q8H PRN (Reason: pain) 4 Days Qty: 10 0RF Continued multivitamin Tablet 1 tab PO DAILY flaxseed oil 1,000 mg capsule 1,000 mg PO DAILY Rx Instructions: administer with a meal cholecalciferol (vitamin D3) 125 mcg (5,000 unit) tablet 125 mcg PO DAILY ascorbate calcium (vitamin C) 500 mg tablet 500 mg PO DAILY budesonide-formoterol [Symbicort] 160-4.5 mcg/actuation HFA aerosol inhaler 2 puff inhalation .Q4-6 PRN (Reason: shortness of breath or wheezing) Qty: 10.2 1RF furosemide 20 mg tablet 20 mg PO BID Qty: 60 7RF duloxetine 60 mg capsule,delayed release(DR/EC) 60 mg PO BID Qty: 60 7RF lidocaine-prilocaine 2.5-2.5 % cream 1 g topical .QID PRN (Reason: pain) Qty: 60 7RF Rx Instructions: Dispense two 30 gm tubes per month. dicyclomine 10 mg capsule 10 mg PO TID Qty: 30 1RF cetirizine [24Hour Allergy] 10 mg tablet 10 mg PO DAILY PRN (Reason: allergy symptoms) potassium chloride 10 mEq tablet extended release 10 meq PO QHS meloxicam 7.5 mg tablet 7.5 mg PO DAILY PRN (Reason: pain) Contrave 8-90 mg tablet extended release 1 tab PO BID Patient Comments: LAST DOSE WILL BE 03/13/25 FOR SURGERY ON 03/16/25 estradiol [Estrace] 1 mg tablet 1 mg PO DAILY Qty: 90 3RF baclofen 10 mg tablet 10 mg PO QDAY PRN (Reason: muscle spasm) Qty: 30 1RF Rx Instructions: TAKE 1 TABLET BY MOUTH NEEDED FOR PAIN daily; Other Ambulatory Orders: 12 Lead EKG (Routine) Timeframe: 20250313 Location: None Selected Ordered By: Dr. Warner Mahoney Referrals / Follow Up: Jill Zelaya MD [Primary Care Provider] - Within 2 Weeks Fernando Ontiveros MD [Med Staff - Active Staff] - Within 2 Weeks Georgette Keating PA [Med Staff - Adv Practice Prof] - Within 1 Month Disposition Disposition (needs filled in before D/C Order can be placed): Home, Self Care Charges/Coding Visit Charges Inpatient E&M: 07728 Disch Hosp 03/16/25 1021 Cosigner Signature (if applicable): CC: Dr. Jill Zelaya MD; Dr. Sidney Gregg DO~ Signed [facility]06-13-2025 [facility] Medical Records Department [address] [place] [address] Discharge Summary 03/16/25 1017 MR#: [id number] Acct: [id number] Name: MORENO VANESSA Rep #: [id number] : 1965 59 From: Sidney Gregg DO PCP: Dr. Jill Zelaya MD Status:ADM IN Location: [facility] [id number] Providers Date of Admission: 03/15/25 Primary Care Physician: Dr. Jill Zelaya MD Consultations 03/15/25 11:17 Consult: Cardiology Routine Consulting Provider: Edgardo Lacy Reason for Consult: SVT EMERGENT Consult: No Notified: Yes Date Notified: 03/15/25 Time Notified: 10:39 Method of Notification: Verbal Consult: General Surgery Routine Consulting Provider: Fernando Ontiveros Reason for Consult: s/p lap rachel EMERGENT Consult: No Notified: Yes Date Notified: 03/15/25 Time Notified: 10:39 Method of Notification: Verbal Reason For Visit: SVT,VT Diagnosis Discharge Diagnosis (1) Tachycardia: Status: Acute Code(s): R00.0 - Tachycardia, unspecified Plan: Began SVT and it was noted on telemetry strips. Then was in SVT and it was noted on telemetry as well as an EKG. Did receive adenosine 12 mg and has since been in normal sinus rhythm. I ordered the adenosine given in the PACU I ordered EKG and reviewed the pre and post adenosine EKG. Pre-EKG showed SVT as well as post showed sinus tachycardia. I have ordered troponins, echocardiogram, D-dimer and personally reviewed these tests.: Troponin series were negative. 2D echocardiogram showed EF of 60% with mild tricuspid valve insufficiency, RVSP of 3141 mmHg. Mild focal aortic valve calcification. D-dimer is negative so no PE and no CTA needed at this time. I spoke with Dr. Lacy of cardiology and he is on consultation for further input. It was reported the patient has had tachycardia palpitation type symptoms in the past. Unclear if that is at all what were dealing with in the PACU or if that something else. Will continue to monitor patient on telemetry. Seen by cardiology. [place] it was SVT for the duration--the wide-complex tachycardia was SVT with aberrancy. Started on metoprolol succinate 25/d (2) S/P laparoscopic cholecystectomy: Status: Acute Code(s): Z90.49 - Acquired absence of other specified parts of digestive tract Plan: Discussed with svitlana Renteria for home. Pain medication Plan VTE prophylaxis with SCDs. Initially admitted to the intensive care unit for close monitoring but patient has remained stable. Will de-escalate the patient to PCU status. Medications at Discharge Home Medications multivitamin 1 tab PO DAILY 06/17/22 ascorbate calcium (vitamin C) 500 mg tablet 500 mg PO DAILY 09/24/22 cholecalciferol (vitamin D3) 125 mcg (5,000 unit) tablet 125 mcg PO DAILY 09/24/22 flaxseed oil 1,000 mg capsule 1,000 mg PO DAILY 09/24/22 budesonide-formoterol HFA 160 mcg-4.5 mcg/actuation aerosol inhaler (Symbicort) 2 puff inhalation .Q4-6 PRN shortness of breath or wheezing #10.2 grams 11/05/23 estradiol 1 mg tablet (Estrace) 1 mg PO DAILY #90 tabs 12/05/24 duloxetine 60 mg capsule,delayed release 60 mg PO BID #60 caps 12/07/24 furosemide 20 mg tablet 20 mg PO BID #60 tabs 12/07/24 lidocaine-prilocaine 2.5 %-2.5 % topical cream 1 g topical .QID PRN pain #60 grams 12/07/24 baclofen 10 mg tablet 10 mg PO QDAY PRN muscle spasm #30 tabs 01/16/25 dicyclomine 10 mg capsule 10 mg PO TID #30 caps 03/07/25 cetirizine 10 mg tablet (24Hour Allergy) 10 mg PO DAILY PRN allergy symptoms 03/09/25 meloxicam 7.5 mg tablet 7.5 mg PO DAILY PRN pain 03/09/25 naltrexone 8 mg-bupropion 90 mg tablet,extended release (Contrave) 1 tab PO BID WT LOSS 03/09/25 potassium chloride 10 mEq tablet,extended release 10 meq PO QHS 03/09/25 oxycodone-acetaminophen 5 mg-325 mg tablet (Percocet) 1 tab PO Q8H PRN pain 4 days #10 tabs 03/15/25 Hospital Course Operations - (Laparoscopic cholecystectomy) Procedures 2-D Echocardiogram Summary of Care Provided Hospital Course: This is a 59-year-old female who underwent a laparoscopic cholecystectomy on the . Patient was in the PACU and has some abdominal pain and then had what appeared to be ventricular tachycardia. LIMA ARIAS was called. Patient did not lose consciousness. By the time that the code team arrived, patient was noted to be in SVT and no wide-complex tachycardia. Patient EKG that confirmed such. Patient received 2 mg of adenosine and then converted to sinus rhythm. Patient underwent echocardiogram that was unremarkable. Cardiology reviewed and thinks that she had SVT with aberrancy. Patient will be on metoprolol succinate 25 mg daily to help prevent further events in the future. Discussed with Dr. Ontiveros and patient is stable from a surgical perspective for discharge. Patient improved much faster than initially anticipated as it was concerned the patient actually did have (more content not included)...[facility]06-13-2025 Progress note [facility] Medical Records Department [address] [place] [address] Progress Note - Hospitalist 03/16/25 0649 MR#: [id number] Acct: [id number] Name: MORENO VANESSA Rep #:[id number] : 1965 59 From: Sidney Gregg DO PCP: Dr. Jill Zelaya MD Status:ADM IN Location: [place] [id number] Reason for Visit Reason for Visit: Diagnoses Tachycardia, unspecified (03/15/25) Right upper quadrant pain (03/15/25) Encounter for other preprocedural examination (03/15/25) Acquired absence of other specified parts of digestive tract (03/15/25) Subjective Subjective Feeling well. No events overnight. Objective Data Objective Data Vital Signs: Vital Signs Temp Pulse Resp BP Pulse Ox O2 Del Method O2 Flow Rate 36.3 C L 63 13 91/61 95 Room Air 4 03/16/25 03:15 03/16/25 03:15 03/16/25 03:15 03/16/25 03:15 03/16/25 03:15 03/16/25 03:15 03/15/25 14:00 Oxygen Flow Rate (L/min) 4 Oxygen Delivery Method Room Air Weight: 90.265 kg Body Mass Index (BMI) 29.3 Intake & Output: Intake and Output for Last 24 Hours 03/14/25 03/15/25 03/16/25 23:59 23:59 23:59 Intake Total 1061.75 / 1061.75 Output Total Balance 1056.75 / 1056.75 Lab / Micro Data 03/15/25 10:25 03/16/25 06:12 Labs: Laboratory Results - last 24 hr 03/15/25 10:25: WBC 12.5 H, RBC 4.04 L, Hgb 12.7, Hct 38.2, MCV 94.6, MCH 31.4, MCHC 33.2, RDW Std Deviation 43.4, RDW Coeff of Jemal 12.3, Plt Count 233, MPV 9.0, Immature Gran % (Auto) 0.400, Neut % (Auto) 89.7 H, Lymph % (Auto) 6.5 L, Dewey % (Auto) 1.8, Eos % (Auto) 1.1, Baso % (Auto) 0.5, Absolute Neuts (auto) 11.3 H, Absolute Lymphs (auto) 0.81 L, Nucleated RBC % 0, D-Dimer Quant (PE/DVT)0.38,Sodium 141, Potassium 4.4, Chloride 106, Carbon Dioxide 25.9, Anion Gap 8,BUN 14, Creatinine 0.82, Estim Creat Clear Calc 86.80, Est GFR (MDRD) Non- Af 81,BUN/Creatinine Ratio 17.1, Glucose 133 H, Calcium 8.3, Total Bilirubin 0.25, AST18, ALT 14, Alkaline Phosphatase 80, Troponin T High Sens < 6,Total Protein 6.0, Albumin 3.8, Globulin 2.2, Albumin/Globulin Ratio 1.8 03/15/25 12:15: Troponin T Hi Sens 2 Hr 8 03/15/25 14:15: Troponin T Hi Sens 4Hr 12 Radiography Diagnostic Testing: Radiology Impression Echocardiogram 03/15/25 11:17 Interpretation Summary The study was technically difficult. The LV systolic function is normal. EF is 60 %. Mild tricuspid valve insufficiency. RVSP estimated between 31-41 mmHg. Mild focal aortic valve calcification. Ordering Physician: Sidney Gregg Referring Physician: Fernando Ontiveros/Jill Zelaya Performed By: Magi Gallagher, ESTEE, RVT Rhythm Strip Rhythm Strip: Sinus Rhythm Rate: 93 Ectopy: None Physical Exam Const alert and no apparent distress HEENT head/scalp atraumatic and moist oral mucous membranes Resp normal respiratory effort, no retractions, no use of accessory muscles and clearto auscultation bilaterally Cardio regular rate, regular rhythm, S1 normal heart sound and S2 normal heart sound GI normal to inspection, nondistended, normoactive bowel sounds, soft to palpation,non-tender and non-distended Extremity normal to inspection and full ROM Neuro Sensorium / Orientation: awake and alert Assessment & Plan Assessment/Plan (1) Tachycardia: PLAN: Began SVT and it was noted on telemetry strips. Then was in SVT and it was noted on telemetryas well as an EKG. Did receive adenosine 12 mg and has since been in normal sinus rhythm. I ordered the adenosine given in the PACU I ordered EKG and reviewed the pre and post adenosine EKG. Pre-EKG showed SVT as well as post showed sinus tachycardia. I have ordered troponins, echocardiogram, D-dimer and personally reviewed these tests.: Troponin series were negative. 2D echocardiogram showed EF of 60% with mild tricuspid valve insufficiency, RVSPof 3141 mmHg. Mild focal aortic valve calcification. D-dimer is negative so no PE and no CTA neededat this time. I spoke with Dr. Lacy of cardiology and he is on consultation for further input. It was reported the patient has had tachycardia palpitation type symptoms in thepast. Unclear if that is at all what were dealing with in the PACU or if that something else. Will continue to monitor patient on telemetry. Seen by cardiology. [place] it was SVT for the duration--the wide-complex tachycardia was SVT with aberrancy. Started on metoprolol succinate 25/d (2) S/P laparoscopic cholecystectomy: PLAN: Discussed with svitlana Renteria for home. Pain medication PLAN: Plan VTE prophylaxis with SCDs. Initially admitted to the intensive care unit for close monitoring but patient has remained stable.Will de-escalate the patient to PCU status. 03/16/25 1017 Cosigner Signature (if applicable): CC: ~ Signed [facility]06-13-2025 Progress note [facility] Medical Records Department [address] [place] [address] Progress Note - Surgery 03/16/25 0927 MR#: [id number] Acct: [id number] Name: MORENO VANESSA Rep #:[id number] : 1965 59 From: Fernando Ontiveros MD PCP: Dr. Jill Zelaya MD Status:ADM IN Location: [facility] [id number] Subjective Subjective Patient seen evaluated on rounds this morning. She denies any issues or problems. She states that her incisional pain is well-controlled and actually quite minimal. In speaking with nursing staff this morning, it sounds as thoughshe has had no further rhythm issues. She has been tolerating diet. Objective Data Objective Data Vital Signs: Vital Signs Temp Pulse Resp BP Pulse Ox O2 Del Method O2 Flow Rate 98.3 F 60 16 108/68 98 Room Air 4 03/16/25 08:26 03/16/25 08:26 03/16/25 08:26 03/16/25 08:26 03/16/25 08:26 03/16/25 09:01 03/15/25 14:00 Oxygen Flow Rate (L/min) 4 Oxygen Delivery Method Room Air Weight: 208 lb 1.862 oz Body Mass Index (BMI) 30.8 Intake & Output: Intake and Output for Last 24 Hours 03/14/25 03/15/25 03/16/25 23:59 23:59 23:59 Intake Total 1061.75 / 1061.75 Output Total / Balance 1056.75 / 1056.75 Lab / Micro Data 03/15/25 10:25 03/16/25 06:12 Labs: Laboratory Results - last 24 hr 03/15/25 10:25: WBC 12.5 H, RBC 4.04 L, Hgb 12.7, Hct 38.2, MCV 94.6, MCH 31.4, MCHC 33.2, RDW Std Deviation 43.4, RDW Coeff of Jemal 12.3, Plt Count 233, MPV 9.0, Immature Gran % (Auto) 0.400, Neut % (Auto) 89.7 H, Lymph % (Auto) 6.5 L, Dewey % (Auto) 1.8, Eos % (Auto) 1.1, Baso % (Auto) 0.5, Absolute Neuts (auto) 11.3 H, Absolute Lymphs (auto) 0.81 L, Nucleated RBC % 0, D-Dimer Quant (PE/DVT)0.38,Sodium 141, Potassium 4.4, Chloride 106, Carbon Dioxide 25.9, Anion Gap 8,BUN 14, Creatinine 0.82, Estim Creat Clear Calc 86.80, Est GFR (MDRD) Non- Af 81,BUN/Creatinine Ratio 17.1, Glucose 133 H, Calcium 8.3, Total Bilirubin 0.25, AST18, ALT 14, Alkaline Phosphatase 80, Troponin T High Sens < 6,Total Protein 6.0, Albumin 3.8, Globulin 2.2, Albumin/Globulin Ratio 1.8 03/15/25 12:15: Troponin T Hi Sens 2 Hr 8 03/15/25 14:15: Troponin T Hi Sens 4Hr 12 03/16/25 06:12: Sodium 140, Potassium 3.9, Chloride 107, Carbon Dioxide 25.8, Anion Gap 8, BUN 13, Creatinine 0.72, Estim Creat Clear Calc 100.36, Est GFR (MDRD) Non-Af 95, BUN/Creatinine Ratio 18.1,Glucose 113 H, Calcium 8.5, Magnesium 2.3 H, TSH 0.797 Radiography Diagnostic Testing: Radiology Impression Echocardiogram 03/15/25 11:17 Interpretation Summary The study was technically difficult. The LV systolic function is normal. EF is 60 %. Mild tricuspid valve insufficiency. RVSP estimated between 31-41 mmHg. Mild focal aortic valve calcification. Ordering Physician: Sidney Gregg Referring Physician: Fernando Ontiveros/Jill Zelaya Performed By: Magi Gallagher, RDCS, RVT Rhythm Strip Rhythm Strip: Sinus Rhythm Rate: 93 Ectopy: None Physical Exam Narrative She is alert and oriented x 3. She is in no acute distress. Assessment & Plan Assessment/Plan (1) S/P laparoscopic cholecystectomy: PLAN: Plan The patient is a 59-year-old female who underwent an unremarkable robotic cholecystectomy yesterdayhowever in recovery she developed SVT. This convertedwith adenosine administration. Patient was seen by cardiology and they are recommending beta-kalli on discharge and outpatient workup. She is doing wellfrom a surgical standpoint and should be okay for discharge home once medically cleared. Shecan follow-up with me in about 2 weeks as an outpatient. She may certainly call sooner if any issues or problems arise. Continue diet as tolerated 03/16/25 0929 Cosigner Signature (if applicable): CC: ~ Signed [facility]06-13-2025 Progress note Author Sidney Gregg [facility] Note Date/Time March 16, 2025 10:1 7am [facility] Medical Records Department [address] [place] [address] Progress Note - Hospitalist 03/16/25 0649 MR#: [id number] Acct: [id number] Name: MORENO VANESSA Rep #:[id number] : 1965 59 From: Sidney Gregg DO PCP: Dr. Jill Zelaya MD Status:ADM IN Location: [place] [address]-1 Reason for Visit Reason for Visit: Diagnoses Tachycardia, unspecified (03/15/25) Right upper quadrant pain (03/15/25) Encounter for other preprocedural examination (03/15/25) Acquired absence of other specified parts of digestive tract (03/15/25) Subjective Subjective Feeling well. No events overnight. Objective Data Objective Data Vital Signs: Vital Signs Temp Pulse Resp BP Pulse Ox O2 Del Method O2 Flow Rate 36.3 C L 63 13 91/61 95 Room Air 4 03/16/25 03:15 03/16/25 03:15 03/16/25 03:15 03/16/25 03:15 03/16/25 03:15 03/16/25 03:15 03/15/25 14:00 Oxygen Flow Rate (L/min) 4 Oxygen Delivery Method Room Air Weight: 90.265 kg Body Mass Index (BMI) 29.3 Intake & Output: Intake and Output for Last 24 Hours 03/14/25 03/15/25 03/16/25 23:59 23:59 23:59 Intake Total 1061.75 / 1061.75 Output Total / Balance 1056.75 / 1056.75 Lab / Micro Data 03/15/25 10:25 03/16/25 06:12 Labs: Laboratory Results - last 24 hr 03/15/25 10:25: WBC 12.5 H, RBC 4.04 L, Hgb 12.7, Hct 38.2, MCV 94.6, MCH 31.4, MCHC 33.2, RDW Std Deviation 43.4, RDW Coeff of Jemal 12.3, Plt Count 233, MPV 9.0, Immature Gran % (Auto) 0.400, Neut % (Auto) 89.7 H, Lymph % (Auto) 6.5 L, Dewey % (Auto) 1.8, Eos % (Auto) 1.1, Baso % (Auto) 0.5, Absolute Neuts (auto) 11.3 H, Absolute Lymphs (auto) 0.81 L, Nucleated RBC % 0, D-Dimer Quant (PE/DVT)0.38, Sodium 141, Potassium 4.4, Chloride 106, Carbon Dioxide 25.9, Anion Gap 8,BUN 14, Creatinine 0.82, Estim Creat Clear Calc 86.80, Est GFR (MDRD) Non-Af 81,BUN/Creatinine Ratio 17.1, Glucose 133 H, Calcium 8.3, Total Bilirubin 0.25, AST18, ALT 14, Alkaline Phosphatase 80, Troponin T High Sens < 6, Total Protein 6.0, Albumin 3.8, Globulin 2.2, Albumin/Globulin Ratio 1.8 03/15/25 12:15: Troponin T Hi Sens 2 Hr 8 03/15/25 14:15: Troponin T Hi Sens 4Hr 12 Radiography Diagnostic Testing: Radiology Impression Echocardiogram 03/15/25 11:17 Interpretation Summary The study was technically difficult. The LV systolic function is normal. EF is 60 %. Mild tricuspid valve insufficiency. RVSP estimated between 31-41 mmHg. Mild focal aortic valve calcification. Ordering Physician: Sidney Gregg Referring Physician: Fernando Ontiveros/Jill Zelaya Performed By: Magi Gallagher, RDCS, RVT Rhythm Strip Rhythm Strip: Sinus Rhythm Rate: 93 Ectopy: None Physical Exam Const alert and no apparent distress HEENT head/scalp atraumatic and moist oral mucous membranes Resp normal respiratory effort, no retractions, no use of accessory muscles and clearto auscultation bilaterally Cardio regular rate, regular rhythm, S1 normal heart sound and S2 normal heart sound GI normal to inspection, nondistended, normoactive bowel sounds, soft to palpation,non-tender and non-distended Extremity normal to inspection and full ROM Neuro Sensorium / Orientation: awake and alert Assessment & Plan Assessment/Plan (1) Tachycardia: PLAN: Began SVT and it was noted on telemetry strips. Then was in SVT and it was noted on telemetry as well as an EKG. Did receive adenosine 12 mg and has since been in normal sinus rhythm. I ordered the adenosine given in the PACU I ordered EKG and reviewed the pre and post adenosine EKG. Pre-EKG showed SVT as well as post showed sinus tachycardia. I have ordered troponins, echocardiogram, D-dimer and personally reviewed these tests.: Troponin series were negative. 2D echocardiogram showed EF of 60% with mild tricuspid valve insufficiency, RVSP of 3141 mmHg. Mild focal aortic valve calcification. D-dimer is negative so no PE and no CTA needed at this time. I spoke with Dr. Lacy of cardiology and he is on consultation for further input. It was reported the patient has had tachycardia palpitation type symptoms in thepast. Unclear if that is at all what were dealing with in the PACU or if that something else. Will continue to monitor patient on telemetry. Seen by cardiology. [place] it was SVT for the duration--the wide-complex tachycardia was SVT with aberrancy. Started on metoprolol succinate 25/d (2) S/P laparoscopic cholecystectomy: PLAN: Discussed with svitlana Renteria for home. Pain medication PLAN: Plan VTE prophylaxis with SCDs. Initially admitted to the intensive care unit for close monitoring but patient has remained stable. Will de-escalate the patient to PCU status. 03/16/25 1017 <Electronically signed by Sidney Gregg DO> Cosigner Signature (if applicable): CC: ~ Signed [facility] Work Phone: 1(269) 500-595906-12-2025 Consult note Author Edgardo Lacy [facility] Note Date/Time March 15, 2025 6:04 pm [facility] Medical Records Department [address] [place] [address] Consultation - Cardiology 03/15/25 1755 MR#: [id number] Acct: [id number] Name: OMRENO VANESSA Rep #:[id number] : 1965 59 From: Edgardo Lacy MD PCP: Dr. Jill Zelaya MD Status:ADM IN Location: ICU ICU02-1 Assessment & Plan Assessment/Plan (1) Tachycardia: PLAN: The patient's wide-complex tachycardia appears to be SVT with a Lewis C. It was called on rhythm strip initiated by PAC in the same cycle length converted into a narrow complex tachycardia with exactly the same cycle length. This is consistent with SVT with a Lewis C that then narrows up to a normal conduction. This broke with adenosine which also supports a diagnosis of SVT. The patient has no significant structural heart disease at all. I would recommend that we treat her with low-dose metoprolol succinate 25 mg daily and Iwent over the utilization of Valsalva and other vagal tonic maneuvers. The patient should follow-up in the office in 4 to 6 weeks with one of our advanced practitioners Georgette Keating. PLAN: Plan 1. Will add metoprolol succinate 25 mg daily. 2. Follow-up with the [place] [facility] with Georgette Keating in 4 to 6 weeks. 3. As long the patient remains asymptomatic and free of any significant arrhythmias she should be able to be discharged in the morning. HPI Consult Data Date of Consult: 03/15/25 HPI Narrative Reason for Consultation: Wide-complex tachycardia in the PACU following lap rachel HPI Narrative: MORENO VANESSA, is a 59 F who presents in the PACU following lap cholecystectomy with a wide-complex tachycardia. In viewing the onset of the arrhythmia and the termination it appears the rhythmstarted with a PAC with an apparent conduction and went into a notable tachycardia that then narrowed up with a normal conduction in the narrow complextachycardia. This was subsequently converted with adenosine to sinus rhythm. This does not appear to be ventricular tachycardia. The patient never lost consciousness and was aware of the whole time what was going on with the arrhythmia. The patient has no structural heart disease her echo done today showed a normal ejection fraction of 60% she had normal atrial sizes no significant valvular heart disease at all and a negative bubble study for PFO. She also has no significant risk factors for coronary artery disease. She is not hypertensive, her lipids are not elevated by her report and her HDL is high, she has never smoked, she is not diabetic. She is adopted and does not know her family history. The patient's had no recurrence of any wide-complex tachycardia since her admission. She denies any prior history of palpitations tachycardias or any type of cardiac history. She denies any syncope or near syncope. [facility] Medical History Anxiety History of IBS History of stress test RUQ abdominal pain Wears glasses History of steroid therapy Back pain Non-smoker Colitis Leg cramps History of pain when walking History of edema Acute diarrhea Neuropathy of right foot Peripheral neuropathy Erythromelalgia Scoliosis Asthma Degenerative disc disease Depression Home Medications ?Medication ?Instructions ?Recorded ?Last Taken ?Type multivitamin 1 tab PO DAILY 06/17/2203/04 History ascorbate calcium (vitamin C) 500 500 mg PO DAILY 09/0403/14/25 History mg tablet cholecalciferol (vitamin D3) 125 125 mcg PO DAILY 09/0403/14/25 History mcg (5,000 unit) tablet flaxseed oil 1,000 mg capsule 1,000 mg PO DAILY 03/14/25 History budesonide-formoterol HFA 160 2 puff inhalation .Q4-6 PRN 11/05/23 Unknown Rx mcg-4.5 mcg/actuation aerosol shortness of breath or w heezing inhaler (Symbicort) #10.2 grams estradiol 1 mg tablet (Estrace) 1 mg PO DAILY #90 tabs 12/05/24 03/14/25 Rx duloxetine 60 mg capsule,delayed 60 mg PO BID #60 caps 12/07/24 03/14/25 Rx release furosemide 20 mg tablet 20 mg PO BID #60 tabs 03/14/25 Rx lidocaine-prilocaine 2.5 %-2.5 % 1 g topical .QID PRN pain #60 grams 12/07/24 Unknown Rx topical cream baclofen 10 mg tablet 10 mg PO QDAY PRN muscle spa sm #30 01/16/25 Unknown Rx tabs dicyclomine 10 mg capsule 10 mg PO TID #30 caps Unknown Rx cetirizine 10 mg tablet (24Hour 10 mg PO DAILY PRN all ergy symptoms 03/09/25 03/14/25 History Allergy) meloxicam 7.5 mg tablet 7.5 mg PO DAILY PRN pain 03/2803/14/25 History naltrexone 8 mg-bupropion 90 mg 1 tab PO BID WT LOSS 0 03/09/25 03/12/25 History tablet,extended release (Contrave) potassium chloride 10 mEq 10 meq PO QHS 03/09/2503/14 History tablet,extended release oxycodone-acetaminophen 5 mg-325 1 tab PO Q8H PRN pain 4 days #10 03/15/25 Unknown Rx mg tablet (Percocet) tabs Allergy/AdvReac Type Severity Reaction Status Date / Time Sulfa (Sulfonamide Allergy Mild rash Verified 03/15/25 07:10 Antibiotics) acetaminophen (From Vicodin) AdvReac Intermediate Other Verified 03/15/25 07:10 hydrocodone (From Vicodin) AdvReac Intermediate Other Verified 03/15/25 07:10 Family History Other Adopted Surgical History Hx of colonoscopy History of surgical procedure H/O tubal ligation S/P laparoscopic assisted vaginal hysterectomy (LAVH) delivery delivered Social History adopted: Yes household members: spouse current occupational status: employed current occupation: [employer] Smoking Status: Never smoker Electronic Cigarette Use: not used alcohol intake: current alcohol intake frequency: holidays/special occasions only details: social substance use type: does not use caffeine: Yes what type of physical activity do you participate in: none seatbelt use: always do you feel safe at home: Yes additional social history: Christin RUBIO Constitutional Constitutional: Reports as per HPI Eyes Eyes: Reports systems reviewed and no addt'l complaints, except as documented ENT HEENT: Reports systems reviewed and no addt'l complaints, except as documented Cardiovascular Cardiovascular: Reports as per HPI Respiratory/Chest Respiratory/Chest: Reports as per HPI Gastrointestinal Gastrointestinal: Reports as per HPI Genitourinary Genitourinary: Reports systems reviewed and no addt'l complaints, except as documented Musculoskeletal Musculoskeletal: Reports systems reviewed and no addt'l complaints, except as documented Integumentary Integumentary: Reports systems reviewed and no addt'l complaints, except as documented Neurologic Neurologic: Reports systems reviewed and no addt'l complaints, except as documented Psychiatric Psychiatric: Reports systems reviewed and no addt'l complaints, except as documented Endocrine Endocrinology: Reports systems reviewed and no addt'l complaints, except as documented Hematologic/Lymphatic Hematologic/Lymphatic: Reports systems reviewed and no addt'l complaints, exceptas documented Allergic/Immunologic Allergic/Immunologic: Reports systems reviewed and no addt'l complaints, except as documented Physical Exam Const alert and oriented x3 HEENT normocephalic Eyes EOMs intact bilaterally Neck no JVD and no carotid bruits Chest inspection of chest normal Resp normal respiratory effort and clear to auscultation bilaterally Cardio Rate: regular rate Rhythm: regular rhythm Heart Sounds: S1 normal and S2 normal; Negative for click, gallop or murmur GI soft to palpation Extremity no pedal edema Psych mental status grossly normal Risk Stratification Risk Stratification Applicable: No Charges/Coding Visit Charges Inpatient E&M: 87083 Init Hosp L2 Objective Data Vital Signs: Vital Signs Temp Pulse Resp BP Pulse Ox O2 Del Method O2 Flow Rate 98.3 F 94 18 111/73 96 Room Air 4 03/15/25 11:15 03/15/25 16:00 03/15/25 16:00 03/15/25 16:00 03/15/25 16:00 03/15/25 16:00 03/15/25 14:00 Oxygen Flow Rate (L/min) 4 Oxygen Delivery Method Room Air Weight: 199 lb Body Mass Index (BMI) 29.3 Intake & Output: Intake and Output for Last 24 Hours 03/13/25 03/14/25 03/15/25 23:59 23:59 23:59 Intake Total 1061.75 / 1061.75 Output Total 5 / 5 Balance 1056.75 / 1056.75 Lab / Micro Data Attestation: I reviewed the patient's lab results. 03/15/25 10:25 03/15/25 10:25 Labs: Laboratory Results - last 24 hr 03/15/25 10:25: WBC 12.5 H, RBC 4.04 L, Hgb 12.7, Hct 38.2, MCV 94.6, MCH 31.4, MCHC 33.2, RDW Std Deviation 43.4, RDW Coeff of Jemal 12.3, Plt Count 233, MPV 9.0, Immature Gran % (Auto) 0.400, Neut % (Auto) 89.7 H, Lymph % (Auto) 6.5 L, Dewey % (Auto) 1.8, Eos % (Auto) 1.1, Baso % (Auto) 0.5, Absolute Neuts (auto) 11.3 H, Absolute Lymphs (auto) 0.81 L, Nucleated RBC % 0, D-Dimer Quant (PE/DVT)0.38, Sodium 141, Potassium 4.4, Chloride 106, Carbon Dioxide 25.9, Anion Gap 8,BUN 14, Creatinine 0.82, Estim Creat Clear Calc 86.80, Est GFR (MDRD) Non-Af 81,BUN/Creatinine Ratio 17.1, Glucose 133 H, Calcium 8.3, Total Bilirubin 0.25, AST18, ALT 14, Alkaline Phosphatase 80, Troponin T High Sens < 6, Total Protein 6.0, Albumin 3.8, Globulin 2.2, Albumin/Globulin Ratio 1.8 03/15/25 12:15: Troponin T Hi Sens 2 Hr 8 03/15/25 14:15: Troponin T Hi Sens 4Hr 12 Rhythm Strip Rhythm Strip: Sinus Rhythm Rate: 93 Ectopy: None Cardiology Labs/Tests 03/15/25 10:25: WBC 12.5 H, RBC 4.04 L, Hgb 12.7, Hct 38.2, MCV 94.6, MCH 31.4, MCHC 33.2, Plt Count 233, MPV 9.0, Immature Gran % (Auto) 0.400, Neut % (Auto) 89.7 H, Lymph % (Auto) 6.5 L, Dewey % (Auto) 1.8, Eos % (Auto) 1.1, Baso % (Auto)0.5, Absolute Neuts (auto) 11.3 H, Nucleated RBC % 0, D-Dimer Quant (PE/DVT) 0.38, Sodium 141, Potassium 4.4, Chloride 106, Carbon Dioxide 25.9, Anion Gap 8,BUN 14, Creatinine 0.82, Est GFR (MDRD) Non-Af 81, BUN/Creatinine Ratio 17.1, Glucose 133 H, Calcium 8.3, Total Bilirubin 0.25 Rhythm: EKG: ECHO: Stress Test: Cardiac Cath: PCI: CT Surgery: Holter monitor: EPS: PPM: CXR: Chest CT Scan: Radiography Diagnostic Testing: Radiology Impression Echocardiogram 03/15/25 11:17 Interpretation Summary The study was technically difficult. The LV systolic function is normal. EF is 60 %. Mild tricuspid valve insufficiency. RVSP estimated between 31-41 mmHg. Mild focal aortic valve calcification. Ordering Physician: Sidney Gregg Referring Physician: Fernando Ontiveros/Jill Zelaya Performed By: Magi Gallagher RDCS, RVT 03/15/25 1804 <Electronically signed by Edgardo Lacy MD> Cosigner Signature (if applicable): CC: Dr. Jill Zelaya MD; Dr. Fernando Ontiveros MD~ Signed [facility] Work Phone: 1(653) 159-899406-12-2025 History and physical note Author Sidney Gregg [facility] Note Date/Time March 15, 2025 4:43 pm [facility] Medical Records Department [address] [place] [address] H&P Exam - Hospitalist 03/15/25 5581 MR#: [id number] Acct: [id number] Name: MORENO VANESSA ODZAN Rep #:[id number] : 1965 59 From: Sidney Gregg DO PCP: Dr. Jill Zelaya MD Status:ADM IN Location: ICU ICU02-1 HPI - General General Date of Admission: 03/15/25 Date of Service: 03/15/25 Chief Complaint: RUQ pain HPI Narrative MORENO VANESSA, is a 59 F who presents for laparoscopic cholecystectomy. Patientunderwent the procedure this morning and was doing well and then was cleaning abdominal pain. She was then noted to be in wide-complex tachycardia concerningfor VT. Patient did not lose consciousness. A CODE BLUE was called and when I had arrived patient appeared to be in SVT. EKG confirmed SVT. Patient [id number] mg of adenosine and converted to normal sinus rhythm. Patient is otherwise feeling well other than the abdominal pain after surgery. Patient has never hadany heart conditions in the past. [facility] Medical History Anxiety History of IBS History of stress test RUQ abdominal pain Wears glasses History of steroid therapy Back pain Non-smoker Colitis Leg cramps History of pain when walking History of edema Acute diarrhea Neuropathy of right foot Peripheral neuropathy Erythromelalgia Scoliosis Asthma Degenerative disc disease Depression Home Medications ?Medication ?Instructions ?Recorded ?Last Taken ?Type multivitamin 1 tab PO DAILY 06/17/2203/04 History ascorbate calcium (vitamin C) 500 500 mg PO DAILY 09/0403/14/25 History mg tablet cholecalciferol (vitamin D3) 125 125 mcg PO DAILY 09/0403/14/25 History mcg (5,000 unit) tablet flaxseed oil 1,000 mg capsule 1,000 mg PO DAILY 03/14/25 History budesonide-formoterol HFA 160 2 puff inhalation .Q4-6 PRN 11/05/23 Unknown Rx mcg-4.5 mcg/actuation aerosol shortness of breath or w heezing inhaler (Symbicort) #10.2 grams estradiol 1 mg tablet (Estrace) 1 mg PO DAILY #90 tabs 12/05/24 03/14/25 Rx duloxetine 60 mg capsule,delayed 60 mg PO BID #60 caps 12/07/24 03/14/25 Rx release furosemide 20 mg tablet 20 mg PO BID #60 tabs 03/14/25 Rx lidocaine-prilocaine 2.5 %-2.5 % 1 g topical .QID PRN pain #60 grams 12/07/24 Unknown Rx topical cream baclofen 10 mg tablet 10 mg PO QDAY PRN muscle spa sm #30 01/16/25 Unknown Rx tabs dicyclomine 10 mg capsule 10 mg PO TID #30 caps Unknown Rx cetirizine 10 mg tablet (24Hour 10 mg PO DAILY PRN all ergy symptoms 03/09/25 03/14/25 History Allergy) meloxicam 7.5 mg tablet 7.5 mg PO DAILY PRN pain 03/2803/14/25 History naltrexone 8 mg-bupropion 90 mg 1 tab PO BID WT LOSS 0 03/09/25 03/12/25 History tablet,extended release (Contrave) potassium chloride 10 mEq 10 meq PO QHS 03/09/2503/14 History tablet,extended release oxycodone-acetaminophen 5 mg-325 1 tab PO Q8H PRN pain 4 days #10 03/15/25 Unknown Rx mg tablet (Percocet) tabs Allergy/AdvReac Type Severity Reaction Status Date / Time Sulfa (Sulfonamide Allergy Mild rash Verified 03/15/25 07:10 Antibiotics) acetaminophen (From Vicodin) AdvReac Intermediate Other Verified 03/15/25 07:10 hydrocodone (From Vicodin) AdvReac Intermediate Other Verified 03/15/25 07:10 Family History Other Adopted Surgical History Hx of colonoscopy History of surgical procedure H/O tubal ligation S/P laparoscopic assisted vaginal hysterectomy (LAVH) delivery delivered Social History adopted: Yes household members: spouse current occupational status: employed current occupation: [employer] Smoking Status: Never smoker Electronic Cigarette Use: not used alcohol intake: current alcohol intake frequency: holidays/special occasions only details: social substance use type: does not use caffeine: Yes what type of physical activity do you participate in: none seatbelt use: always do you feel safe at home: Yes additional social history: Christin RUBIO Narrative Denies any history of VTE nor lower extremity edema. All review of systems werenegative except as mentioned above in the history of present illness and the other review of systems. Vital Signs Vital Signs Vital Signs: 03/15/25 07:12 03/15/25 07:12 03/15/25 07:58 Temperature 36.7 C 36.7 C Temperature Source Temporal Pulse Rate 82 82 Pulse Rate [3] Respiratory Rate 16 16 Respiratory Pattern Normal Blood Pressure 118/60 118/60 Blood Pressure [3] Blood Pressure Mean 79 Blood Pressure Source Monitor Blood Pressure Position Supine Blood Pressure Location Left Arm Baseline BP Pulse Ox 97 97 Oxygen Delivery Method Room Air Oxygen Flow Rate (L/min) 03/15/25 09:48 03/15/25 09:50 03/15/25 09:53 Temperature 36.2 C L Temperature Source Temporal Pulse Rate 110 H 108 H Pulse Rate [3] 105 H Respiratory Rate 18 18 Respiratory Pattern Normal Blood Pressure 129/75 H 134/116 H 134/116 H Blood Pressure [3] 124/75 H Blood Pressure Mean 93 122 Blood Pressure Source Monitor Monitor Blood Pressure Position Right Lateral Right Lateral Blood Pressure Location Right Arm Right Arm Baseline BP 118/60 118/60 Pulse Ox 92 92 Oxygen Delivery Method Room Air Room Air Nasal Cannula Oxygen Flow Rate (L/min) 03/15/25 09:55 03/15/25 10:00 03/15/25 10:05 Temperature Temperature Source Pulse Rate 193 H 190 H 101 H Pulse Rate [3] Respiratory Rate 18 18 18 Respiratory Pattern Blood Pressure 96/63 124/75 H 118/68 Blood Pressure [3] Blood Pressure Mean 74 91 84 Blood Pressure Source Monitor Monitor Monitor Blood Pressure Position Supine Supine Supine Blood Pressure Location Right Arm Right Arm Right Arm Baseline BP 118/60 118/60 118/60 Pulse Ox 94 100 100 Oxygen Delivery Method Nasal Cannula Nasal Cannula Nasal Cannula Oxygen Flow Rate (L/min) 5 10 10 03/15/25 10:08 03/15/25 10:15 03/15/25 10:30 Temperature 36.3 C L Temperature Source Pulse Rate 109 H 97 95 Pulse Rate [3] Respiratory Rate 20 H 18 18 Respiratory Pattern Blood Pressure 129/75 H 104/63 109/62 Blood Pressure [3] Blood Pressure Mean 76 77 Blood Pressure Source Monitor Monitor Blood Pressure Position Supine Supine Blood Pressure Location Right Arm Right Arm Baseline BP 118/60 118/60 Pulse Ox 95 99 98 Oxygen Delivery Method Room Air Nasal Cannula Nasal Cannula Oxygen Flow Rate (L/min) 10 10 03/15/25 10:45 03/15/25 11:15 03/15/25 11:30 Temperature 36.7 C 36.8 C Temperature Source Temporal Temporal Pulse Rate 96 90 93 Pulse Rate [3] Respiratory Rate 16 14 19 H Respiratory Pattern Blood Pressure 107/68 114/67 83/63 L Blood Pressure [3] Blood Pressure Mean 81 82 69 Blood Pressure Source Monitor Monitor Monitor Blood Pressure Position Semi-Fowlers Semi-Fowlers Semi-Fowlers Blood Pressure Location Right Arm Right Arm Right Arm Baseline BP 118/60 Pulse Ox 97 96 98 Oxygen Delivery Method Nasal Cannula Nasal Cannula Nasal Cannula Oxygen Flow Rate (L/min) 4 4 4 03/15/25 11:45 03/15/25 12:00 03/15/25 13:00 Temperature Temperature Source Pulse Rate 90 88 78 Pulse Rate [3] Respiratory Rate 16 15 13 Respiratory Pattern Blood Pressure 104/61 110/59 L 107/66 Blood Pressure [3] Blood Pressure Mean 75 76 79 Blood Pressure Source Monitor Monitor Monitor Blood Pressure Position Semi-Fowlers Semi-Fowlers Semi-Fowlers Blood Pressure Location Right Arm Right Arm Right Arm Baseline BP Pulse Ox 97 97 94 Oxygen Delivery Method Nasal Cannula Nasal Cannula Room Air Oxygen Flow Rate (L/min) 4 4 03/15/25 14:00 03/15/25 15:00 Temperature Temperature Source Pulse Rate 85 80 Pulse Rate [3] Respiratory Rate 16 18 Respiratory Pattern Blood Pressure 108/64 115/75 Blood Pressure [3] Blood Pressure Mean 78 88 Blood Pressure Source Monitor Monitor Blood Pressure Position Semi-Fowlers Semi-Fowlers Blood Pressure Location Right Arm Right Arm Baseline BP Pulse Ox 93 Oxygen Delivery Method Room Air Room Air Oxygen Flow Rate (L/min) Weight Weight: 90.265 kg Body Mass Index (BMI) 29.3 Physical Exam Const alert, no apparent distress and average body habitus General Appearance: cooperative HEENT normocephalic and head/scalp atraumatic Neck no lymphadenopathy Resp normal respiratory effort, no retractions, no use of accessory muscles and clear to auscultation bilaterally Cardio regular rate, regular rhythm, S1 normal heart sound and S2 normal heart sound GI normal to inspection, nondistended, normoactive bowel sounds and soft to palpation GI Narrative: Slightly distended. Minimal tenderness. Auscultation: hypoactive bowel sounds Extremity normal to inspection and full ROM Neuro oriented x3, CN's II-XII intact bilaterally, moves all extremities and no focal motor deficits Sensorium / Orientation: awake, alert, oriented to person, oriented to place and oriented to time Speech: speech normal Psych affect normal Results Lab / Micro Data Attestation: I reviewed the patient's lab results. 03/15/25 10:25 03/15/25 10:25 Labs: Laboratory Results - last 24 hr 03/15/25 10:25: WBC 12.5 H, RBC 4.04 L, Hgb 12.7, Hct 38.2, MCV 94.6, MCH 31.4, MCHC 33.2, RDW Std Deviation 43.4, RDW Coeff of Jemal 12.3, Plt Count 233, MPV 9.0, Immature Gran % (Auto) 0.400, Neut % (Auto) 89.7 H, Lymph % (Auto) 6.5 L, Dewey % (Auto) 1.8, Eos % (Auto) 1.1, Baso % (Auto) 0.5, Absolute Neuts (auto) 11.3 H, Absolute Lymphs (auto) 0.81 L, Nucleated RBC % 0, D-Dimer Quant (PE/DVT) 0.38, Sodium 141, Potassium 4.4, Chloride 106, Carbon Dioxide 25.9, Anion Gap 8, BUN 14, Creatinine 0.82, Estim Creat Clear Calc 86.80, Est GFR (MDRD) Non-Af 81, BUN/Creatinine Ratio 17.1, Glucose 133 H, Calcium 8.3, Total Bilirubin 0.25, AST 18, ALT 14, Alkaline Phosphatase 80, Troponin T High Sens < 6, Total Protein 6.0, Albumin 3.8, Globulin 2.2, Albumin/Globulin Ratio 1.8 03/15/25 12:15: Troponin T Hi Sens 2 Hr 8 03/15/25 14:15: Troponin T Hi Sens 4Hr 12 Imaging Radiology Impression Echocardiogram 03/15/25 11:17 Interpretation Summary The study was technically difficult. The LV systolic function is normal. EF is 60 %. Mild tricuspid valve insufficiency. RVSP estimated between 31-41 mmHg. Mild focal aortic valve calcification. Ordering Physician: Sidney Gregg Referring Physician: Fernando Ontiveros/Jill Zelaya Performed By: Magi Gallagher RDCS, RVT Assessment & Plan Assessment/Plan (1) Tachycardia: PLAN: Began SVT and it was noted on telemetry strips. Then was in SVT and it was noted on telemetry as well as an EKG. Did receive adenosine 12 mg and has since been in normal sinus rhythm. I ordered the adenosine given in the PACU I ordered EKG and reviewed the pre and post adenosine EKG. Pre-EKG showed SVT as well as post showed sinus tachycardia. I have ordered troponins, echocardiogram, D-dimer and personally reviewed these tests.: Troponin series were negative. 2D echocardiogram showed EF of 60% with mild tricuspid valve insufficiency, RVSP of 3141 mmHg. Mild focal aortic valve calcification. D-dimer is negative so no PE and no CTA needed at this time. I spoke with Dr. Lacy of cardiology and he is on consultation for further input. It was reported the patient has had tachycardia palpitation type symptoms in the past. Unclear if that is at all what were dealing with in the PACU or if that something else. Will continue to monitor patient on telemetry. (2) S/P laparoscopic cholecystectomy: PLAN: Discussed with Dr. Ontiveros, should be on clears. Pain medication PLAN: Plan VTE prophylaxis with SCDs. Initially admitted to the intensive care unit for close monitoring but patient has remained stable. Will de-escalate the patient to PCU status. Charges/Coding Visit Charges Inpatient E&M: 02539 Init Hosp L3 03/15/25 3806 <Electronically signed by Sidney Gregg DO> Cosigner Signature (if applicable): CC: Dr. Jill Zelaya MD; Dr. Sidney Gregg DO~ Signed [facility] Work Phone: [phone]) 623-624806-12-2025 Consult note [facility] Medical Records Department [address] [place] [address] Consultation - Cardiology 03/15/25 1755 MR#: [id number] Acct: [id number] Name: MORENO VANESSA Rep #:[id number] : 1965 59 From: Edgardo Lacy MD PCP: Dr. Jill Zelaya MD Status:ADM IN Location: ICU ICU02-1 Assessment & Plan Assessment/Plan (1) Tachycardia: PLAN: The patient's wide-complex tachycardia appears to be SVT with a Lewis C. It was called on rhythm strip initiated by PAC in the same cycle length converted into a narrow complex tachycardia withexactly the same cycle length. This is consistent with SVT with a Lewis C that then narrows up to anormal conduction. This broke with adenosine which also supports a diagnosis of SVT. The patient has no significant structural heart disease at all. I would recommend that we treat herwith low-dose metoprolol succinate 25 mg daily and Iwent over the utilization of Valsalva and othervagal tonic maneuvers. The patient should follow-up in the office in 4 to 6 weeks with one of our advanced practitioners Georgette Keating. PLAN: Plan 1. Will add metoprolol succinate 25 mg daily. 2. Follow-up with the [facility] with Georgette Keating in 4 to 6 weeks. 3. As long the patient remains asymptomatic and free of any significant arrhythmias she should be able to be discharged in the morning. HPI Consult Data Date of Consult: 03/15/25 HPI Narrative Reason for Consultation: Wide-complex tachycardia in the PACU following lap rachel HPI Narrative: MORENO VANESSA, is a 59 F who presents in the PACU following lap cholecystectomy with a wide-complextachycardia. In viewing the onset of the arrhythmia and the termination it appears the rhythmstarted with a PAC with an apparent conduction and went into a notable tachycardia that then narrowed up with a normal conduction in the narrow complextachycardia. This was subsequently converted with adenosine to sinus rhythm. This does not appear to be ventricular tachycardia. The patient never lost consciousness and was aware of the whole time what was going on with the arrhythmia. The patient has no structural heart disease her echo done today showed a normal ejection fraction of 60% she had normal atrial sizes no significant valvular heart disease at all and a negative bubblestudy for PFO. She also has no significant risk factors for coronary artery disease. She is not hypertensive, her lipids are not elevated by her report and her HDL is high, she has never smoked, she is not diabetic. She is adopted and does not know her family history. The patient's had no recurrence of any wide-complex tachycardia since her admission. She denies anyprior history of palpitations tachycardias or any type of cardiac history. She denies any syncope or near syncope. [facility] Medical History Anxiety History of IBS History of stress test RUQ abdominal pain Wears glasses History of steroid therapy Back pain Non-smoker Colitis Leg cramps History of pain when walking History of edema Acute diarrhea Neuropathy of right foot Peripheral neuropathy Erythromelalgia Scoliosis Asthma Degenerative disc disease Depression Home Medications ?Medication ?Instructions ?Recorded ?Last Taken ?Type multivitamin 1 tab PO DAILY 06/17/2203/04 History ascorbate calcium (vitamin C) 500 500 mg PO DAILY 09/0403/14/25 History mg tablet cholecalciferol (vitamin D3) 125 125 mcg PO DAILY 09/0403/14/25 History mcg (5,000 unit) tablet flaxseed oil 1,000 mg capsule 1,000 mg PO DAILY 03/14/25 History budesonide-formoterol HFA 160 2 puff inhalation .Q4-6 PRN 11/05/23 Unknown Rx mcg-4.5 mcg/actuation aerosol shortness of breath or w heezing inhaler (Symbicort) #10.2 grams estradiol 1 mg tablet (Estrace) 1 mg PO DAILY #90 tabs 12/05/24 03/14/25 Rx duloxetine 60 mg capsule,delayed 60 mg PO BID #60 caps 12/07/24 03/14/25 Rx release furosemide 20 mg tablet 20 mg PO BID #60 tabs 03/14/25 Rx lidocaine-prilocaine 2.5 %-2.5 % 1 g topical .QID PRN pain #60 grams 12/07/24 Unknown Rx topical cream baclofen 10 mg tablet 10 mg PO QDAY PRN muscle spa sm #30 01/16/25 Unknown Rx tabs dicyclomine 10 mg capsule 10 mg PO TID #30 caps Unknown Rx cetirizine 10 mg tablet (24Hour 10 mg PO DAILY PRN all ergy symptoms 03/09/25 03/14/25 History Allergy) meloxicam 7.5 mg tablet 7.5 mg PO DAILY PRN pain 03/2803/14/25 History naltrexone 8 mg-bupropion 90 mg 1 tab PO BID WT LOSS 0 03/09/25 03/12/25 History tablet,extended release (Contrave) potassium chloride 10 mEq 10 meq PO QHS 03/09/2503/14 History tablet,extended release oxycodone-acetaminophen 5 mg-325 1 tab PO Q8H PRN pain 4 days #10 03/15/25 Unknown Rx mg tablet (Percocet) tabs Allergy/AdvReac Type Severity Reaction Status Date / Time Sulfa (Sulfonamide Allergy Mild rash Verified 03/15/25 07:10 Antibiotics) acetaminophen (From Vicodin) AdvReac Intermediate Other Verified 03/15/25 07:10 hydrocodone (From Vicodin) AdvReac Intermediate Other Verified 03/15/25 07:10 Family History Other Adopted Surgical History Hx of colonoscopy History of surgical procedure H/O tubal ligation S/P laparoscopic assisted vaginal hysterectomy (LAVH) delivery delivered Social History adopted: Yes household members: spouse current occupational status: employed current occupation: [employer] Smoking Status: Never smoker Electronic Cigarette Use: not used alcohol intake: current alcohol intake frequency: holidays/special occasions only details: social substance use type: does not use caffeine: Yes what type of physical activity do you participate in: none seatbelt use: always do you feel safe at home: Yes additional social history: Christin RUBIO Constitutional Constitutional: Reports as per HPI Eyes Eyes: Reports systems reviewed and no addt'l complaints, except as documented ENT HEENT: Reports systems reviewed and no addt'l complaints, except as documented Cardiovascular Cardiovascular: Reports as per HPI Respiratory/Chest Respiratory/Chest: Reports as per HPI Gastrointestinal Gastrointestinal: Reports as per HPI Genitourinary Genitourinary: Reports systems reviewed and no addt'l complaints, except as documented Musculoskeletal Musculoskeletal: Reports systems reviewed and no addt'l complaints, except as documented Integumentary Integumentary: Reports systems reviewed and no addt'l complaints, except as documented Neurologic Neurologic: Reports systems reviewed and no addt'l complaints, except as documented Psychiatric Psychiatric: Reports systems reviewed and no addt'l complaints, except as documented Endocrine Endocrinology: Reports systems reviewed and no addt'l complaints, except as documented Hematologic/Lymphatic Hematologic/Lymphatic: Reports systems reviewed and no addt'l complaints, exceptas documented Allergic/Immunologic Allergic/Immunologic: Reports systems reviewed and no addt'l complaints, except as documented Physical Exam Const alert and oriented x3 HEENT normocephalic Eyes EOMs intact bilaterally Neck no JVD and no carotid bruits Chest inspection of chest normal Resp normal respiratory effort and clear to auscultation bilaterally Cardio Rate: regular rate Rhythm: regular rhythm Heart Sounds: S1 normal and S2 normal; Negative for click, gallop or murmur GI soft to palpation Extremity no pedal edema Psych mental status grossly normal Risk Stratification Risk Stratification Applicable: No Charges/Coding Visit Charges Inpatient E&M: 74445 Init Hosp L2 Objective Data Vital Signs: Vital Signs Temp Pulse Resp BP Pulse Ox O2 Del Method O2 Flow Rate 98.3 F 94 18 111/73 96 Room Air 4 03/15/25 11:15 03/15/25 16:00 03/15/25 16:00 03/15/25 16:00 03/15/25 16:00 03/15/25 16:00 03/15/25 14:00 Oxygen Flow Rate (L/min) 4 Oxygen Delivery Method Room Air Weight: 199 lb Body Mass Index (BMI) 29.3 Intake & Output: Intake and Output for Last 24 Hours 03/13/25 03/14/25 03/15/25 23:59 23:59 23:59 Intake Total 1061.75 / 1061.75 Output Total 5 / 5 Balance 1056.75 / 1056.75 Lab / Micro Data Attestation: I reviewed the patient's lab results. 03/15/25 10:25 03/15/25 10:25 Labs: Laboratory Results - last 24 hr 03/15/25 10:25: WBC 12.5 H, RBC 4.04 L, Hgb 12.7, Hct 38.2, MCV 94.6, MCH 31.4, MCHC 33.2, RDW Std Deviation 43.4, RDW Coeff of Jemal 12.3, Plt Count 233, MPV 9.0, Immature Gran % (Auto) 0.400, Neut % (Auto) 89.7 H, Lymph % (Auto) 6.5 L, Dewey % (Auto) 1.8, Eos % (Auto) 1.1, Baso % (Auto) 0.5, Absolute Neuts (auto) 11.3 H, Absolute Lymphs (auto) 0.81 L, Nucleated RBC % 0, D-Dimer Quant (PE/DVT)0.38,Sodium 141, Potassium 4.4, Chloride 106, Carbon Dioxide 25.9, Anion Gap 8,BUN 14, Creatinine 0.82, Estim Creat Clear Calc 86.80, Est GFR (MDRD) Non-Af 81,BUN/Creatinine Ratio 17.1, Glucose 133 H, Calcium 8.3, Total Bilirubin 0.25, AST18, ALT 14, Alkaline Phosphatase 80, Troponin T High Sens < 6,Total Protein 6.0, Albumin 3.8, Globulin 2.2, Albumin/Globulin Ratio 1.8 03/15/25 12:15: Troponin T Hi Sens 2 Hr 8 03/15/25 14:15: Troponin T Hi Sens 4Hr 12 Rhythm Strip Rhythm Strip: Sinus Rhythm Rate: 93 Ectopy: None Cardiology Labs/Tests 03/15/25 10:25: WBC 12.5 H, RBC 4.04 L, Hgb 12.7, Hct 38.2, MCV 94.6, MCH 31.4, MCHC 33.2, Plt Count 233, MPV 9.0, Immature Gran % (Auto) 0.400, Neut % (Auto) 89.7 H, Lymph % (Auto) 6.5 L, Dewey % (Auto) 1.8, Eos % (Auto) 1.1, Baso % (Auto)0.5, Absolute Neuts (auto) 11.3 H, Nucleated RBC % 0, D-Dimer Quant (PE/DVT) 0.38, Sodium 141, Potassium 4.4, Chloride 106, Carbon Dioxide 25.9, Anion Gap 8,BUN14, Creatinine 0.82, Est GFR (MDRD) Non-Af 81, BUN/Creatinine Ratio 17.1, Glucose 133 H, Calcium 8.3, Total Bilirubin 0.25 Rhythm: EKG: ECHO: Stress Test: Cardiac Cath: PCI: CT Surgery: Holter monitor: EPS: PPM: CXR: Chest CT Scan: Radiography Diagnostic Testing: Radiology Impression Echocardiogram 03/15/25 11:17 Interpretation Summary The study was technically difficult. The LV systolic function is normal. EF is 60 %. Mild tricuspid valve insufficiency. RVSP estimated between 31-41 mmHg. Mild focal aortic valve calcification. Ordering Physician: Sidney Gregg Referring Physician: Fernando Ontiveros/Jill Zelaya Performed By: Magi Gallagher, ESTEE, RVT 03/15/25 1804 Cosigner Signature (if applicable): CC: Dr. Jill Zelaya MD; Dr. Fernando Ontiveros MD~ Signed [facility]06-12-2025 History and physical note [facility] Medical Records Department [address] [place] [address] H&P Exam - Hospitalist 03/15/25 1637 MR#: [id number] Acct: [id number] Name: MORENO VANESSA Rep #:[id number] : 1965 59 From: Sidney Gregg DO PCP: Dr. Jill Zelaya MD Status:ADM IN Location: ICU ICU02-1 HPI - General General Date of Admission: 03/15/25 Date of Service: 03/15/25 Chief Complaint: RUQ pain HPI Narrative MORENO VANESSA, is a 59 F who presents for laparoscopic cholecystectomy. Patientunderwent the procedure this morning and was doing well and then was cleaning abdominal pain. She was then noted to be in wide-complex tachycardia concerningfor VT. Patient did not lose consciousness. A CODE BLUE was called and when I had arrived patient appeared to be in SVT. EKG confirmed SVT. Patient [id number] mg of adenosine and converted to normal sinus rhythm. Patient is otherwise feeling well other than the abdominal pain after surgery. Patient has never hadany heart conditions in the past. [facility] Medical History Anxiety History of IBS History of stress test RUQ abdominal pain Wears glasses History of steroid therapy Back pain Non-smoker Colitis Leg cramps History of pain when walking History of edema Acute diarrhea Neuropathy of right foot Peripheral neuropathy Erythromelalgia Scoliosis Asthma Degenerative disc disease Depression Home Medications ?Medication ?Instructions ?Recorded ?Last Taken ?Type multivitamin 1 tab PO DAILY 06/17/2203/04 History ascorbate calcium (vitamin C) 500 500 mg PO DAILY 09/0403/14/25 History mg tablet cholecalciferol (vitamin D3) 125 125 mcg PO DAILY 09/0403/14/25 History mcg (5,000 unit) tablet flaxseed oil 1,000 mg capsule 1,000 mg PO DAILY 03/14/25 History budesonide-formoterol HFA 160 2 puff inhalation .Q4-6 PRN 11/05/23 Unknown Rx mcg-4.5 mcg/actuation aerosol shortness of breath or w heezing inhaler (Symbicort) #10.2 grams estradiol 1 mg tablet (Estrace) 1 mg PO DAILY #90 tabs 12/05/24 03/14/25 Rx duloxetine 60 mg capsule,delayed 60 mg PO BID #60 caps 12/07/24 03/14/25 Rx release furosemide 20 mg tablet 20 mg PO BID #60 tabs 03/14/25 Rx lidocaine-prilocaine 2.5 %-2.5 % 1 g topical .QID PRN pain #60 grams 12/07/24 Unknown Rx topical cream baclofen 10 mg tablet 10 mg PO QDAY PRN muscle spa sm #30 01/16/25 Unknown Rx tabs dicyclomine 10 mg capsule 10 mg PO TID #30 caps Unknown Rx cetirizine 10 mg tablet (24Hour 10 mg PO DAILY PRN all ergy symptoms 03/09/25 03/14/25 History Allergy) meloxicam 7.5 mg tablet 7.5 mg PO DAILY PRN pain 03/2803/14/25 History naltrexone 8 mg-bupropion 90 mg 1 tab PO BID WT LOSS 0 03/09/25 03/12/25 History tablet,extended release (Contrave) potassium chloride 10 mEq 10 meq PO QHS 03/09/2503/14 History tablet,extended release oxycodone-acetaminophen 5 mg-325 1 tab PO Q8H PRN pain 4 days #10 03/15/25 Unknown Rx mg tablet (Percocet) tabs Allergy/AdvReac Type Severity Reaction Status Date / Time Sulfa (Sulfonamide Allergy Mild rash Verified 03/15/25 07:10 Antibiotics) acetaminophen (From Vicodin) AdvReac Intermediate Other Verified 03/15/25 07:10 hydrocodone (From Vicodin) AdvReac Intermediate Other Verified 03/15/25 07:10 Family History Other Adopted Surgical History Hx of colonoscopy History of surgical procedure H/O tubal ligation S/P laparoscopic assisted vaginal hysterectomy (LAVH) delivery delivered Social History adopted: Yes household members: spouse current occupational status: employed current occupation: [employer] Smoking Status: Never smoker Electronic Cigarette Use: not used alcohol intake: current alcohol intake frequency: holidays/special occasions only details: social substance use type: does not use caffeine: Yes what type of physical activity do you participate in: none seatbelt use: always do you feel safe at home: Yes additional social history: Christin RUBIO Narrative Denies any history of VTE nor lower extremity edema. All review of systems werenegative except as mentioned above in the history of present illness and the other review of systems. Vital Signs Vital Signs Vital Signs: 03/15/25 07:12 03/15/25 07:12 03/15/25 07:58 Temperature 36.7 C 36.7 C Temperature Source Temporal Pulse Rate 82 82 Pulse Rate [3] Respiratory Rate 16 16 Respiratory Pattern Normal Blood Pressure 118/60 118/60 Blood Pressure [3] Blood Pressure Mean 79 Blood Pressure Source Monitor Blood Pressure Position Supine Blood Pressure Location Left Arm Baseline BP Pulse Ox 97 97 Oxygen Delivery Method Room Air Oxygen Flow Rate (L/min) 03/15/25 09:48 03/15/25 09:50 03/15/25 09:53 Temperature 36.2 C L Temperature Source Temporal Pulse Rate 110 H 108 H Pulse Rate [3] 105 H Respiratory Rate 18 18 Respiratory Pattern Normal Blood Pressure 129/75 H 134/116 H 134/116 H Blood Pressure [3] 124/75 H Blood Pressure Mean 93 122 Blood Pressure Source Monitor Monitor Blood Pressure Position Right Lateral Right Lateral Blood Pressure Location Right Arm Right Arm Baseline BP 118/60 118/60 Pulse Ox 92 92 Oxygen Delivery Method Room Air Room Air Nasal Cannula Oxygen Flow Rate (L/min) 03/15/25 09:55 03/15/25 10:00 03/15/25 10:05 Temperature Temperature Source Pulse Rate 193 H 190 H 101 H Pulse Rate [3] Respiratory Rate 18 18 18 Respiratory Pattern Blood Pressure 96/63 124/75 H 118/68 Blood Pressure [3] Blood Pressure Mean 74 91 84 Blood Pressure Source Monitor Monitor Monitor Blood Pressure Position Supine Supine Supine Blood Pressure Location Right Arm Right Arm Right Arm Baseline BP 118/60 118/60 118/60 Pulse Ox 94 100 100 Oxygen Delivery Method Nasal Cannula Nasal Cannula Nasal Cannula Oxygen Flow Rate (L/min) 5 10 10 03/15/25 10:08 03/15/25 10:15 03/15/25 10:30 Temperature 36.3 C L Temperature Source Pulse Rate 109 H 97 95 Pulse Rate [3] Respiratory Rate 20 H 18 18 Respiratory Pattern Blood Pressure 129/75 H 104/63 109/62 Blood Pressure [3] Blood Pressure Mean 76 77 Blood Pressure Source Monitor Monitor Blood Pressure Position Supine Supine Blood Pressure Location Right Arm Right Arm Baseline BP 118/60 118/60 Pulse Ox 95 99 98 Oxygen Delivery Method Room Air Nasal Cannula Nasal Cannula Oxygen Flow Rate (L/min) 10 10 03/15/25 10:45 03/15/25 11:15 03/15/25 11:30 Temperature 36.7 C 36.8 C Temperature Source Temporal Temporal Pulse Rate 96 90 93 Pulse Rate [3] Respiratory Rate 16 14 19 H Respiratory Pattern Blood Pressure 107/68 114/67 83/63 L Blood Pressure [3] Blood Pressure Mean 81 82 69 Blood Pressure Source Monitor Monitor Monitor Blood Pressure Position Semi-Fowlers Semi-Fowlers Semi-Fowlers Blood Pressure Location Right Arm Right Arm Right Arm Baseline BP 118/60 Pulse Ox 97 96 98 Oxygen Delivery Method Nasal Cannula Nasal Cannula Nasal Cannula Oxygen Flow Rate (L/min) 4 4 4 03/15/25 11:45 03/15/25 12:00 03/15/25 13:00 Temperature Temperature Source Pulse Rate 90 88 78 Pulse Rate [3] Respiratory Rate 16 15 13 Respiratory Pattern Blood Pressure 104/61 110/59 L 107/66 Blood Pressure [3] Blood Pressure Mean 75 76 79 Blood Pressure Source Monitor Monitor Monitor Blood Pressure Position Semi-Fowlers Semi-Fowlers Semi-Fowlers Blood Pressure Location Right Arm Right Arm Right Arm Baseline BP Pulse Ox 97 97 94 Oxygen Delivery Method Nasal Cannula Nasal Cannula Room Air Oxygen Flow Rate (L/min) 4 4 03/15/25 14:00 03/15/25 15:00 Temperature Temperature Source Pulse Rate 85 80 Pulse Rate [3] Respiratory Rate 16 18 Respiratory Pattern Blood Pressure 108/64 115/75 Blood Pressure [3] Blood Pressure Mean 78 88 Blood Pressure Source Monitor Monitor Blood Pressure Position Semi-Fowlers Semi-Fowlers Blood Pressure Location Right Arm Right Arm Baseline BP Pulse Ox 93 Oxygen Delivery Method Room Air Room Air Oxygen Flow Rate (L/min) Weight Weight: 90.265 kg Body Mass Index (BMI) 29.3 Physical Exam Const alert, no apparent distress and average body habitus General Appearance: cooperative HEENT normocephalic and head/scalp atraumatic Neck no lymphadenopathy Resp normal respiratory effort, no retractions, no use of accessory muscles and clear to auscultation bilaterally Cardio regular rate, regular rhythm, S1 normal heart sound and S2 normal heart sound GI normal to inspection, nondistended, normoactive bowel sounds and soft to palpation GI Narrative: Slightly distended. Minimal tenderness. Auscultation: hypoactive bowel sounds Extremity normal to inspection and full ROM Neuro oriented x3, CN's II-XII intact bilaterally, moves all extremities and no focal motor deficits Sensorium / Orientation: awake, alert, oriented to person, oriented to place and oriented to time Speech: speech normal Psych affect normal Results Lab / Micro Data Attestation: I reviewed the patient's lab results. 03/15/25 10:25 03/15/25 10:25 Labs: Laboratory Results - last 24 hr 03/15/25 10:25: WBC 12.5 H, RBC 4.04 L, Hgb 12.7, Hct 38.2, MCV 94.6, MCH 31.4, MCHC 33.2, RDW Std Deviation 43.4, RDW Coeff of Jemal 12.3, Plt Count 233, MPV 9.0, Immature Gran % (Auto) 0.400, Neut % (Auto) 89.7 H, Lymph % (Auto) 6.5 L, Dewey % (Auto) 1.8, Eos % (Auto) 1.1, Baso % (Auto) 0.5, Absolute Neuts (auto) 11.3 H, Absolute Lymphs (auto) 0.81 L, Nucleated RBC % 0, D-Dimer Quant (PE/DVT) 0.38, Sodium 141, Potassium 4.4, Chloride 106, Carbon Dioxide 25.9, Anion Gap 8, BUN 14, Creatinine 0.82, Estim Creat Clear Calc 86.80, Est GFR (MDRD) Non-Af 81, BUN/Creatinine Ratio 17.1, Glucose 133 H, Calcium 8.3, Total Bilirubin 0.25, AST 18, ALT 14, Alkaline Phosphatase 80, Troponin T High Sens < 6, Total Protein 6.0, Albumin 3.8, Globulin 2.2, Albumin/Globulin Ratio 1.8 03/15/25 12:15: Troponin T Hi Sens 2 Hr 8 03/15/25 14:15: Troponin T Hi Sens 4Hr 12 Imaging Radiology Impression Echocardiogram 03/15/25 11:17 Interpretation Summary The study was technically difficult. The LV systolic function is normal. EF is 60 %. Mild tricuspid valve insufficiency. RVSP estimated between 31-41 mmHg. Mild focal aortic valve calcification. Ordering Physician: Sidney Gregg Referring Physician: Fernando Ontiveros/Jill Zelaya Performed By: Magi Gallagher RDCS, RVT Assessment & Plan Assessment/Plan (1) Tachycardia: PLAN: Began SVT and it was noted on telemetry strips. Then was in SVT and it was noted on telemetryas well as an EKG. Did receive adenosine 12 mg and has since been in normal sinus rhythm. I ordered the adenosine given in the PACU I ordered EKG and reviewed the pre and post adenosine EKG. Pre-EKG showed SVT as well as post showed sinus tachycardia. I have ordered troponins, echocardiogram, D-dimer and personally reviewed these tests.: Troponin series were negative. 2D echocardiogram showed EF of 60% with mild tricuspid valve insufficiency, RVSPof 3141 mmHg. Mild focal aortic valve calcification. D-dimer is negative so no PE and no CTA neededat this time. I spoke with Dr. Lacy of cardiology and he is on consultation for further input. It was reported the patient has had tachycardia palpitation type symptoms in the past. Unclear if that is at all what were dealing with in the PACU or if that something else. Will continue to monitorpatient on telemetry. (2) S/P laparoscopic cholecystectomy: PLAN: Discussed with Dr. Ontiveros, should be on clears. Pain medication PLAN: Plan VTE prophylaxis with SCDs. Initially admitted to the intensive care unit for close monitoring but patient has remained stable.Will de-escalate the patient to PCU status. Charges/Coding Visit Charges Inpatient E&M: 33143 Init Hosp L3 03/15/25 1643 Cosigner Signature (if applicable): CC: Dr. Jill Zelaya MD; Dr. Sidney Gregg, DO~ Signed [facility]06-12-2025 Consult note Author Wanrer Mahoney [facility] Note Date/Time March 15, 2025 11:0 1am [facility] Medical Records Department [address] [place] [address] Anesthesia Postop Eval II 03/15/25 1100 MR#: [id number] Acct: [id number] Name: MORENO VANESSA Rep #:[id number] : 1965 59 From: Warner Mahoney MD PCP: Dr. Jill Zelaya MD Status:REG SDC Y Race: C Location: ICU ICU02 -1 Anesthesia Postop Eval I Sum Postop Eval Completion status Anesthesia document: Postop Eval 1 completed: Yes Anesthesia Postop Eval I Summary Anesthesia Postop Eval I Summary: Anesthesia Postop Eval I: Assessment Summary Airway patent Yes 03/15/25 10:08 VICE PRESIDENT [email or web address] Spontaneous unlabored Yes 03/15/25 10:08 VICE PRESIDENT [email or web address].[email or web address] respirations Mental status Awake,Calm 03/15/25 10:08 VICE PRESIDENT [email or web address] nausea No 03/15/25 10:08 VICE PRESIDENT [email or web address] Vomiting No 03/15/25 10:08 VICE PRESIDENT [email or web address] Anesthesia Postop Eval I: Fluid Summary Crystalloid volume administer 1,500 03/15/25 10:08 VICE PRESIDENT [email or web address] (ml) Colloids volume administered ( ml) Blood Product volume administered (ml) Total IV fluid infused 1,500 03/15/25 10:08 VICE PRESIDENT [email or web address].LMIL Anesthesia Postop Eval I: Summary Notes Anesthesia Complication No 03/15/25 10:08 VICE PRESIDENT [email or web address] Anesthesia Complication Comment: Post-operative progress note Anesthesia: Postop Eval II Evaluation Mental status: Awake and Calm Pain Level: 2 nausea: No Vomiting: No Progress Note Post-operative progress note: Patient had episode of ventricular tach. This was after about 10 to 15 minutes on arrival to PACU. Patient remained responsive and had adequate blood pressure. However, since she remained in rhythm for over a couple minutes. It was decided to give patient adenosine which she had adequate response to. She was then taken to floor for observation. Hospitalist and surgeon aware of incidence of ventricular tach. 03/15/25 1101 <Electronically signed by Warner Mahoney MD > Date _ Warner Mahoney MD Cosigner Signature: Date CC: ~ Signed [facility] Work Phone: 1(519) 858-185706-12-2025 Consult note Author Gail Norwood [facility] Note Date/Time March 15, 2025 10:0 8am [facility] Medical Records Department [address] [facility] [place] [address] Anesthesia Postop Eval I 03/15/25 1007 MR#: [id number] Acct: [id number] Name: MORENO VANESSA Rep #:[id number] : 1965 59 From: Gail Norwood CRNA PCP: Dr. Jill Zelaya MD Status:REG SDC Y Race: C Location: [place] [address] Anesthesia: Postop Eval I Current Vital Signs Temperature: 97.4 F Pulse Rate: 109 Blood Pressure: 129/75 Respiratory Rate: 20 Pulse Ox: 95 Oxygen Delivery Method: Room Air Assessment Airway patent: Yes Spontaneous unlabored respirations: Yes Mental status: Awake and Calm nausea: No Vomiting: No Anesthesia Complication: No Fluid Hydration Crystalloid volume administer (ml): 1,500 Total IV fluid infused: 1,500 Progress Note Anesthesia document: Postop Eval 1 completed: Yes 03/15/25 1008 <Electronically signed by Gail mandel CRNA> Date _ Gail Norwood CRNA Cosigner Signature: Date CC: ~ Signed [facility] Work Phone: [phone]) 959-741806-12-2025 Discharge summary Author Fernando Ontiveros [facility] Note Date/Time March 15, 2025 9:37 am [facility] Medical Records Department [address] [place] [address] Instructions for Home/Discharge Instructions 03/15/25 0933 MR#: [id number] Acct: [id number] Name: MORENO VANESSA Rep #:[id number] : 1965 59 From: Fernando Ontiveros MD PCP: Dr. Jill Zelaya MD [place] [facility] [place] Instructions Diet Discharge Diet: Light diet - advance as tolerated Activity Discharge Activity: May Shower May shower in (days): 1 Ice area for (Minutes): 30 Lifting Restrictions: No lifting pushing or pulling more than 20 pounds for 3 to4 weeks Dressing / Incision Call your doctor if your incision/area has: Continuous Slow Oozing, Sudden Increased Bleeding, Increased Pain/ Swelling, Increased Redness, Foul Smelling Discharge and Swelling at the incision site Call your doctor if you observe: Fever of 101 or Higher Cleanse incision/area with: Soap & Water Follow Up Care Please Follow Up With: Fernando Ontiveros MD When: 2 weeks. Please call office to schedule appointment Test Results: Test results from this visit will be discussed in further detail at your follow- up appointment, if applicable. Discharge Plan Admission Primary Reason for Your Visit: Symptomatic cholelithiasis Attending Provider: Fernando Ontiveros Primary Care Provider: Jill Zelaya Instructions Print Language: Malawian Discharge Orders/Prescriptions Prescriptions: New oxycodone-acetaminophen [Percocet] 5-325 mg tablet 1 tab PO Q8H PRN (Reason: pain) 4 Days Qty: 10 0RF Continued multivitamin Tablet 1 tab PO DAILY flaxseed oil 1,000 mg capsule 1,000 mg PO DAILY Rx Instructions: administer with a meal cholecalciferol (vitamin D3) 125 mcg (5,000 unit) tablet 125 mcg PO DAILY ascorbate calcium (vitamin C) 500 mg tablet 500 mg PO DAILY budesonide-formoterol [Symbicort] 160-4.5 mcg/actuation HFA aerosol inhaler 2 puff inhalation .Q4-6 PRN (Reason: shortness of breath or wheezing) Qty: 10.2 1RF furosemide 20 mg tablet 20 mg PO BID Qty: 60 7RF duloxetine 60 mg capsule,delayed release(DR/EC) 60 mg PO BID Qty: 60 7RF lidocaine-prilocaine 2.5-2.5 % cream 1 g topical .QID PRN (Reason: pain) Qty: 60 7RF Rx Instructions: Dispense two 30 gm tubes per month. dicyclomine 10 mg capsule 10 mg PO TID Qty: 30 1RF cetirizine [24Hour Allergy] 10 mg tablet 10 mg PO DAILY PRN (Reason: allergy symptoms) potassium chloride 10 mEq tablet extended release 10 meq PO QHS meloxicam 7.5 mg tablet 7.5 mg PO DAILY PRN (Reason: pain) Contrave 8-90 mg tablet extended release 1 tab PO BID Patient Comments: LAST DOSE WILL BE 03/13/25 FOR SURGERY ON 03/16/25 estradiol [Estrace] 1 mg tablet 1 mg PO DAILY Qty: 90 3RF baclofen 10 mg tablet 10 mg PO QDAY PRN (Reason: muscle spasm) Qty: 30 1RF Rx Instructions: TAKE 1 TABLET BY MOUTH NEEDED FOR PAIN daily; Other Ambulatory Orders: 12 Lead EKG (Routine) Timeframe: 20250313 Location: None Selected Ordered By: Dr. Warner Mahoney Referrals / Follow Up: Jill Zelaya MD [Primary Care Provider] - Disposition Disposition (needs filled in before D/C Order can be placed): Home, Self Care 03/15/25 0937<Electronically signed by Fernando Ontiveros MD>Fernando Ontiveros MD CC: Dr. Jill Zelaya MD ~ Signed [facility] Work Phone: [phone]) 942-791906-12-2025 Consult note [facility] Medical Records Department [address] [place] [address] Anesthesia Postop Eval II 03/15/25 1100 MR#: [id number] Acct: [id number] Name: MORENO VANESSA Rep #:[id number] : 1965 59 From: Warner Mahoney MD PCP: Dr. Jill Zelaya MD Status:REG SDC Y Race: C Location: ICU ICU02 -1 Anesthesia Postop Eval I Sum Postop Eval Completion status Anesthesia document: Postop Eval 1 completed: Yes Anesthesia Postop Eval I Summary Anesthesia Postop Eval I Summary: Anesthesia Postop Eval I: Assessment Summary Airway patent Yes 03/15/25 10:08 VICE PRESIDENT [email or web address] Spontaneous unlabored Yes 03/15/25 10:08 VICE PRESIDENT [email or web address].LMIL respirations Mental status Awake,Calm 03/15/25 10:08 VICE PRESIDENT [email or web address].LMIL nausea No 03/15/25 10:08 VICE PRESIDENT [email or web address].LMIL Vomiting No 03/15/25 10:08 VICE PRESIDENT [email or web address].LMIL Anesthesia Postop Eval I: Fluid Summary Crystalloid volume administer 1,500 03/15/25 10:08 VICE PRESIDENT RESEARCH.LMIL (ml) Colloids volume administered ( ml) Blood Product volume administered (ml) Total IV fluid infused 1,500 03/15/25 10:08 VICE PRESIDENT RESEARCH.LMIL Anesthesia Postop Eval I: Summary Notes Anesthesia Complication No 03/15/25 10:08 VICE PRESIDENT [email or web address].LMIL Anesthesia Complication Comment: Post-operative progress note Anesthesia: Postop Eval II Evaluation Mental status: Awake and Calm Pain Level: 2 nausea: No Vomiting: No Progress Note Post-operative progress note: Patient had episode of ventricular tach. This was after about 10 to 15 minutes on arrival to PACU. Patient remained responsive and had adequate blood pressure. However, since she remained in rhythm for over a couple minutes. It was decided to give patient adenosine which she had adequate response to. She was then taken to floor for observation. Hospitalist and surgeon aware of incidence of ventricular tach. 03/15/25 1101 > Date _ Warner Adrianignaroldo Signature: Date CC: ~ Signed [facility]06-12-2025 Consult note [facility] Medical Records Department [address] [address] Anesthesia Postop Eval I 03/15/25 1007 MR#: [id number] Acct: [id number] Name: MORENO VANESSA Rep #:[id number] : 1965 59 From: Gail Norwood CRNA PCP: Dr. Jill Zelaya MD Status:REG SDC Y Race: C Location: [place] [address] Anesthesia: Postop Eval I Current Vital Signs Temperature: 97.4 F Pulse Rate: 109 Blood Pressure: 129/75 Respiratory Rate: 20 Pulse Ox: 95 Oxygen Delivery Method: Room Air Assessment Airway patent: Yes Spontaneous unlabored respirations: Yes Mental status: Awake and Calm nausea: No Vomiting: No Anesthesia Complication: No Fluid Hydration Crystalloid volume administer (ml): 1,500 Total IV fluid infused: 1,500 Progress Note Anesthesia document: Postop Eval 1 completed: Yes 03/15/25 1008 c VICE PRESIDENT RESEARCH> Date _ Gail Milosevic VICE PRESIDENT RESEARCH Cosigner Signature: Date CC: ~ Signed [facility]06-12-2025 Consult note Author Warner Mahoney [facility] Note Date/Time March 15, 2025 7:58 am [facility] Medical Records Department [address] [place] [address] Pre-Anesthesia Evaluation 03/15/25 0758 MR#: [id number] Acct: [id number] Name: MORENO VANESSA Rep #:[id number] : 1965 59 From: Warner Mahoney MD PCP: Dr. Jill Zelaya MD Status:REG SD Y Race: C Location: [place] [address] ASA Classification* ASA Classification ASA Classification: 2 Assessment & Plan Anesthesia* Anesthesia Assessment Anesthesia Assessment: Discussed sedation and/or anesthesia options, risks, benefits, and alternatives with patient/parents/legal guardian/POA. Questions invited. The patient/parents/legal guardian/POA seems to understand and agrees to proceedwith anesthesia plan. Reviewed the physical assessment, medical history, allergy history and patient home medications list prior to surgery/procedure/anesthetic and documented any changes. Performed airway and anesthesia risk assessments. Anesthesia Type Anesthesia Type: General Anesthesia Focused Assessment* Temperature: 98.1 F Pulse Rate: 82 Blood Pressure: 118/60 Respiratory Rate: 16 Pulse Ox: 97 Airway Assessment Mouth opens: >3 cm Mallampati Score: II Labs Anesthesia Preop lab: CBC WBC 7.4 K/mm3 (4.4-11.0) 08/15/24 08:42 08/15/24 RBC 4.29 M/mm3 (4.2-5.4) 08/15/24 08:42 08/15/24 Hgb 13.4 g/dL (12.0-15.0) 08/15/24 08:42 08/15/24 Hct 40.8 % (37-47) 08/15/24 08:42 08/15/24 Plt Count 323 K/mm3 (150-450) 08/15/24 08:42 08/15/24 CHEMISTRY Potassium 4.2 mmol/L (3.3-5.1) 03/13/25 10:03 03/13/25 Sodium 140 mmol/L (133-145) 03/13/25 10:03 03/13/25 Magnesium 2.3 mg/dL (1.6-2.6) 08/15/24 08:42 08/15/24 BUN 17 mg/dL (4-19) 03/13/25 10:03 03/13/25 Creatinine 0.91 mg/dL (0.70-1.20) 03/13/25 10:03 03/13/25 Glucose 97 mg/dL (70-99) 03/13/25 10:03 03/13/25 TSH 1.460 uIU/mL (0.358-3.740) 08/15/24 08:42 08/04 11/27 COAG Pre-Assessment Diagnosis/Proposed Procedure Planned Operative Procedure(s): Laparoscopic, Cholecystectomy with IOC Anesthesia History Anesthesia History - customer care professional: Anesthesia History - customer care professional Hx Hospitalization No 03/09/25 10:35 Any Problems With Anesthesia No 03/09/25 10:35 Cholinesterase deficiency No 03/09/25 10:35 You/Your Family Experience No 03/09/25 10:35 fever (hyperthermia) with Relationship Recent Exposure to Contagious No 03/15/25 07:12 Disease Does patient have nerve No 03/09/25 [...] take am of surgery PONV PONV - customer care professional: PONV - customer care professional Female Yes 03/09/25 10:35 HX of Motion Sickness No 03/09/25 10:35 HX of N/V After Surgery No 03/09/25 10:35 Non-Smoker Yes 03/09/25 10:35 Duration of Surgery greater Yes 03/09/25 10:35 than 60 minutes Number of Risk Factors 3 03/09/25 10:35 PONV Score Moderate Risk 03/09/25 10:35 Height & Weight Height & Weight: Anesthesia: Height & Weight Height 5 ft 9 in 03/15/25 07:12 Weight: 91.5 kg 03/15/25 07:12 Body Mass Index (BMI) 29.7 03/15/25 07:12 Respiratory Assessment Respiratory Assessment - customer care professional: Respiratory Tract Infection Hx - customer care professional Hx Respiratory Tract Infection No 03/09/25 10:35 STOP Sleep Apnea STOP Sleep Apnea - customer care professional: STOP Sleep Apnea - customer care professional Hx Hypertension No 03/09/25 10:35 Hx Sleep [...] Tobacco Use History Tobacco Use History - customer care professional: Tobacco Use History - customer care professional Tobacco Use Smoking Status Never smoker 03/09/25 10:35 Hx Tobacco Use No 03/09/25 10:35 Years Smoking Packs Smoked per Day Smoking Cessation Date was within the last 15 years Hx Smoking Cessation Date Hx Smoking Cessation Counseling Hematologic Medial History Hematologic Hx - customer care professional: Hematologic Medical Hx - tar pot man Hx of Blood Transfusion Yes 03/09/25 10:35 Hx of Transfusion in last 3 No 03/09/25 10:35 Months Date of Last Transfusion (if within last 3 months) Ever experience any problems No 03/09/25 10:35 with transfusion(s)? Specify any problems Hx of Preganancy in last 3 No 03/09/25 10:35 Months Nurse Filling Out Transfusion MGRIFFNALLELY 03/09/25 10:35 & Questions: Date: 03/09/25 03/09/25 10:35 Time: 10:37 03/09/25 10:35 Patient unable to answer at this time (ie. confused, unrespo /Reproduction History /Reproductive History - customer care professional: /Reproductive Hx- customer care professional Hx Now No 03/09/25 10:35 Gestational Age (in weeks): EDC: Hx Hx Para Hx Section SAB No 03/09/25 10:35 Active Medications Active Medications: Current Medications Generic Name Dose Route Start Last Admin Trade Name Freq PRN Reason Stop Dose Admin Indocyanine Green 3.75 mg/ N/A 1.5 mls @ 999 mls/hr 03/15/25 11:45 03/15/25 07:38 IV 03/15/25 11:46 999 mls/hr PREOP ONE Administration Lactated Ringer's 1,000 mls @ 15 mls/hr 03/15/25 07:00 03/15/25 07:18 IV 15 mls/hr .Q48H LONNIE Administration PFSH Medical History Anxiety History of IBS History of stress test RUQ abdominal pain Wears glasses History of steroid therapy Back pain Non-smoker Colitis Leg cramps History of pain when walking History of edema Acute diarrhea Neuropathy of right foot Peripheral neuropathy Erythromelalgia Scoliosis Asthma Degenerative disc disease Depression Home Medications ?Medication ?Instructions ?Recorded ?Last Taken ?Type multivitamin 1 tab PO DAILY 06/17/2203/04 History ascorbate calcium (vitamin C) 500 500 mg PO DAILY 09/0403/14/25 History mg tablet cholecalciferol (vitamin D3) 125 125 mcg PO DAILY 09/0403/14/25 History mcg (5,000 unit) tablet flaxseed oil 1,000 mg capsule 1,000 mg PO DAILY 03/14/25 History budesonide-formoterol HFA 160 2 puff inhalation .Q4-6 PRN 11/05/23 Unknown Rx mcg-4.5 mcg/actuation aerosol shortness of breath or w heezing inhaler (Symbicort) #10.2 grams estradiol 1 mg tablet (Estrace) 1 mg PO DAILY #90 tabs 12/05/24 03/14/25 Rx duloxetine 60 mg capsule,delayed 60 mg PO BID #60 caps 12/07/24 03/14/25 Rx release furosemide 20 mg tablet 20 mg PO BID #60 tabs 03/14/25 Rx lidocaine-prilocaine 2.5 %-2.5 % 1 g topical .QID PRN pain #60 grams 12/07/24 Unknown Rx topical cream baclofen 10 mg tablet 10 mg PO QDAY PRN muscle spa sm #30 01/16/25 Unknown Rx tabs dicyclomine 10 mg capsule 10 mg PO TID #30 caps Unknown Rx cetirizine 10 mg tablet (24Hour 10 mg PO DAILY PRN all ergy symptoms 03/09/25 03/14/25 History Allergy) meloxicam 7.5 mg tablet 7.5 mg PO DAILY PRN pain 03/2803/14/25 History naltrexone 8 mg-bupropion 90 mg 1 tab PO BID WT LOSS 0 03/09/25 03/12/25 History tablet,extended release (Contrave) potassium chloride 10 mEq 10 meq PO QHS 03/09/2503/14 History tablet,extended release Allergy/AdvReac Type Severity Reaction Status Date / Time Sulfa (Sulfonamide Allergy Mild rash Verified 03/15/25 07:10 Antibiotics) acetaminophen (From Vicodin) AdvReac Intermediate Other Verified 03/15/25 07:10 hydrocodone (From Vicodin) AdvReac Intermediate Other Verified 03/15/25 07:10 Family History Other Adopted Surgical History Hx of colonoscopy History of surgical procedure H/O tubal ligation S/P laparoscopic assisted vaginal hysterectomy (LAVH) delivery delivered Social History adopted: Yes household members: spouse current occupational status: employed current occupation: [employer] Smoking Status: Never smoker Electronic Cigarette Use: not used alcohol intake: current alcohol intake frequency: holidays/special occasions only details: social substance use type: does not use caffeine: Yes what type of physical activity do you participate in: none seatbelt use: always do you feel safe at home: Yes additional social history: [place]- Review of Systems (Anesthesia) ROS Narrative System reviewed and no additional complaints, except as documented. 03/15/25 0758 <Electronically signed by Warner Mahoney MD > Date _ Warner Mahoney MD Cosigner Signature: Date CC: ~ Signed [facility] Work Phone: 1(383) 733-540706-12-2025 Procedure note [facility] Medical Records Department [address] [place] [address] Operative Report 03/15/25 0937 MR#: [id number] Acct: [id number] Name: MORENO VANESSA Rep #:[id number] : 1965 59 From: Fernando Ontiveros MD PCP: Dr. Jill Zelaya MD Status:[facility] Location: [place] [address] Procedures Digestive 40xxx-49xxx: [id number] Laparo cholecystectomy/graph Operative Report (Standard) Operative Information Date of Procedure: 03/15/25 Pre-Operative Diagnosis: Symptomatic cholelithiasis Post-Operative Diagnosis: Symptomatic cholelithiasis Surgery/Procedure Performed: Robotic cholecystectomy with ICG cholangiogram suit attendant: Yes Dog Handler Or Trainer: Senia Sandoval Tasks completed by assistant production editor: Closing, Trocar and Other Additional offset press assistant?: No Type of Anesthesia: General and Local RN Documented Start/Stop Times: Operation Date: 03/15/25 08:00 Case Time Into Pre-Op 03/15/25 06:48 Anesthesia Start 03/15/25 08:12 Into Room 03/15/25 08:12 Procedure Start 03/15/25 08:34 Procedure Start Time: 08:34 Procedure Stop Time: 09:38 Select all DRAINS/GRAFTS/IMPLANTS that apply: None Estimated Blood Loss: 5 mL Specimen collected: Yes Description of specimen(s) removed: Gallbladder Description of surgery: The patient is a 59-year-old female who was recently seen through the office with right upper quadrant pain. Ultrasound showed a large gallstone in the neckof the gallbladder. I offered her a roboticcholecystectomy as treatment. We discussed that he the planned surgery including risk benefits and alternatives. She wished to proceed. She was brought to the operative room today following informed consent. She was placed supine on the operative table with arms outstretched and arm boards. Generalanesthesia was induced. Once adequately sedated the abdomen is then prepped and draped in the usualsterile manner. a 5mm incision was made just below the umbilicus. Through this a 5 mm trocar was rain jesus optically. This was placed without incident. The abdomen is then fully insufflated with CO2 gas. A 5 mm 0 degree scope was inserted. There were no signs of bowel or vascular injury. Next an 8 mm trocar was placed on the right side of the abdomen along with another 8 mm trocar in the left side of the abdomen and then finally another 8 mm trocars placed in the left upper quadrant. All of these were placed without incident and under direct visualization. The original 5 mm trocar was switched to an 8 mm robotic trocar as well. The robot was then rolled into position and docked. Once in place the gallbladder was visualized in the right upper quadrant. The fundus of the gallbladder through reflected in a cephalad direction. There were some adhesions to the undersurface of the gallbladder which were taken down using electrocautery connected to an L- hook. Once these adhesions were taken down the infundibulum of the gallbladder was readily observed. The peritoneum on either side of the gallbladder was freed up using electrocautery. This created greater mobility ofthe gallbladder infundibulum. Cystic duct and cystic artery were then dissectedout circumferentially. The lower third of thegallbladder was then removed fromthe undersurface of the gallbladder thus creating a critical view of safety suchthat 2 and only 2 structures were seen going to the gallbladder. The cystic duct and cystic artery were then clipped. Prior to clipping ICG cholangiogram was visualized and showed the cystic duct/common bile duct anatomy. We were clearly clipping the cystic duct. Both the duct and the artery were clipped andthen transected using electrocautery and the hook. After this the gallbladderwas then removed from the undersurface of the liver again using electrocautery. As the gallbladder was almost freed from the liver and opening on the gallbladder it developed from torsion on the grasper. At this point there was spillage of bile. This was promptly suctioned out and irrigated using [employer] suction supply coordinator. The gallbladder was removed by placing it in a bag and bringit out throughthe left-sided trocar site. This did not require any stretching of the fascia. A total of 3 L of saline were then used to copiously irrigate the right upper quadrant. This was nice and clear at the completion of the procedure. Patient was flattened out and all additional irrigant fluid was suctioned out. The trocars were then removed thus allowing escape of insufflation. A total of 30 cc of localanesthetic were used and the incisions through the course of the operation. 4-0 Vicryl was then used to close the skinincisions. Skin glue was also applied as dressing. She was awakened from anesthesia and taken to recovery in good condition. Surgical Findings: See procedure note Complications Complications: No Admit VTE Documentation VTE Present on Admission: No VTE Mechan Device Prophylaxis: SCD's VTE Pharm Prophylaxis ordered?: No Reason prophylaxis not ordered: Treatment Not Indicated 03/15/25 0941 Cosigner Signature (if applicable): CC: Dr. Jill Zelaya MD; Dr. Fernando Ontvieros MD~ Signed [facility]06-12-2025 History and physical note Author Fernando Ontiveros [facility] Note Date/Time March 15, 2025 7:48 am [facility] Medical Records Department [address] [place] [address] History & Physical Exam 03/15/25 0747 MR#: [id number] Acct: [id number] Name: MORENO VANESSA Rep #:[id number] : 1965 59 From: Fernando Ontiveros MD PCP: Dr. Jill Zelaya MD [place] [facility] [place] [address]1 HPI - General General Date of Admission: 03/15/25 Date of Service: 03/15/25 Chief Complaint: RUQ pain HPI Narrative MORENO VANESSA, is a 59 F who presents fpr robotic cholecystectomy. recent RUq pain and gallstones [facility] Medical History (Updated 03/09/25 @ 10:45 by Sheila Snow) Anxiety History of IBS History of stress test RUQ abdominal pain Wears glasses History of steroid therapy Back pain Non-smoker Colitis Leg cramps History of pain when walking History of edema Acute diarrhea Neuropathy of right foot Peripheral neuropathy Erythromelalgia Scoliosis Asthma Degenerative disc disease Depression Home Medications ?Medication ?Instructions ?Recorded ?Last Taken ?Type multivitamin 1 tab PO DAILY 06/17/2203/04 History ascorbate calcium (vitamin C) 500 500 mg PO DAILY 09/0403/14/25 History mg tablet cholecalciferol (vitamin D3) 125 125 mcg PO DAILY 09/0403/14/25 History mcg (5,000 unit) tablet flaxseed oil 1,000 mg capsule 1,000 mg PO DAILY 03/14/25 History budesonide-formoterol HFA 160 2 puff inhalation .Q4-6 PRN 11/05/23 Unknown Rx mcg-4.5 mcg/actuation aerosol shortness of breath or w heezing inhaler (Symbicort) #10.2 grams estradiol 1 mg tablet (Estrace) 1 mg PO DAILY #90 tabs 12/05/24 03/14/25 Rx duloxetine 60 mg capsule,delayed 60 mg PO BID #60 caps 12/07/24 03/14/25 Rx release furosemide 20 mg tablet 20 mg PO BID #60 tabs 03/14/25 Rx lidocaine-prilocaine 2.5 %-2.5 % 1 g topical .QID PRN pain #60 grams 12/07/24 Unknown Rx topical cream baclofen 10 mg tablet 10 mg PO QDAY PRN muscle spa sm #30 01/16/25 Unknown Rx tabs dicyclomine 10 mg capsule 10 mg PO TID #30 caps Unknown Rx cetirizine 10 mg tablet (24Hour 10 mg PO DAILY PRN all ergy symptoms 03/09/25 03/14/25 History Allergy) meloxicam 7.5 mg tablet 7.5 mg PO DAILY PRN pain 03/2803/14/25 History naltrexone 8 mg-bupropion 90 mg 1 tab PO BID WT LOSS 0 03/09/25 03/12/25 History tablet,extended release (Contrave) potassium chloride 10 mEq 10 meq PO QHS 03/09/2503/14 History tablet,extended release Allergy/AdvReac Type Severity Reaction Status Date / Time Sulfa (Sulfonamide Allergy Mild rash Verified 03/15/25 07:10 Antibiotics) acetaminophen (From Vicodin) AdvReac Intermediate Other Verified 03/15/25 07:10 hydrocodone (From Vicodin) AdvReac Intermediate Other Verified 03/15/25 07:10 Family History Other Adopted Surgical History Hx of colonoscopy History of surgical procedure H/O tubal ligation S/P laparoscopic assisted vaginal hysterectomy (LAVH) delivery delivered Social History adopted: Yes household members: spouse current occupational status: employed current occupation: [employer] Smoking Status: Never smoker Electronic Cigarette Use: not used alcohol intake: current alcohol intake frequency: holidays/special occasions only details: social substance use type: does not use caffeine: Yes what type of physical activity do you participate in: none seatbelt use: always do you feel safe at home: Yes additional social history: [place]- Vital Signs Vital Signs Vital Signs: 03/15/25 07:12 03/15/25 07:12 Temperature 98.1 F Temperature Source Temporal Pulse Rate 82 Respiratory Rate 16 Respiratory Pattern Normal Blood Pressure 118/60 Blood Pressure Mean 79 Blood Pressure Source Monitor Blood Pressure Position Supine Blood Pressure Location Left Arm Pulse Ox 97 Oxygen Delivery Method Room Air Weight Weight: 201 lb 11.567 oz Body Mass Index (BMI) 29.7 Physical Exam Const alert and oriented x3 Results Lab / Micro Data 03/13/25 10:03 Assessment & Plan Assessment/Plan (1) RUQ abdominal pain: PLAN: Plan robotic rachel today 03/15/25 0748 <Electronically signed by Fernando Ontiveros MD> Cosigner Signature (if applicable): CC: Dr. Jill Zelaya MD; Dr. Fernando Ontiveros MD~ Signed [facility] Work Phone: 1(827) 648-176206-12-2025 Discharge summary [facility] Medical Records Department [address] [place] [address] Instructions for Home/Discharge Instructions 03/15/25 0933 MR#: [id number] Acct: [id number] Name: MORENO VANESSA Rep #:[id number] : 1965 59 From: Fernando Ontiveros MD PCP: Dr. Jill Zelaya MD [place] [facility] [place] Instructions Diet Discharge Diet: Light diet - advance as tolerated Activity Discharge Activity: May Shower May shower in (days): 1 Ice area for (Minutes): 30 Lifting Restrictions: No lifting pushing or pulling more than 20 pounds for 3 to4 weeks Dressing / Incision Call your doctor if your incision/area has: Continuous Slow Oozing, Sudden Increased Bleeding, Increased Pain/ Swelling, Increased Redness, Foul Smelling Discharge and Swelling at the incision site Call your doctor if you observe: Fever of 101 or Higher Cleanse incision/area with: Soap & Water Follow Up Care Please Follow Up With: Fernando Ontiveros MD When: 2 weeks. Please call office to schedule appointment Test Results: Test results from this visit will be discussed in further detail at your follow- up appointment, if applicable. Discharge Plan Admission Primary Reason for Your Visit: Symptomatic cholelithiasis Attending Provider: Fernando Ontiveros Primary Care Provider: Jill Zelaya Instructions Print Language: Malawian Discharge Orders/Prescriptions Prescriptions: New oxycodone-acetaminophen [Percocet] 5-325 mg tablet 1 tab PO Q8H PRN (Reason: pain) 4 Days Qty: 10 0RF Continued multivitamin Tablet 1 tab PO DAILY flaxseed oil 1,000 mg capsule 1,000 mg PO DAILY Rx Instructions: administer with a meal cholecalciferol (vitamin D3) 125 mcg (5,000 unit) tablet 125 mcg PO DAILY ascorbate calcium (vitamin C) 500 mg tablet 500 mg PO DAILY budesonide-formoterol [Symbicort] 160-4.5 mcg/actuation HFA aerosol inhaler 2 puff inhalation .Q4-6 PRN (Reason: shortness of breath or wheezing) Qty: 10.2 1RF furosemide 20 mg tablet 20 mg PO BID Qty: 60 7RF duloxetine 60 mg capsule,delayed release(DR/EC) 60 mg PO BID Qty: 60 7RF lidocaine-prilocaine 2.5-2.5 % cream 1 g topical .QID PRN (Reason: pain) Qty: 60 7RF Rx Instructions: Dispense two 30 gm tubes per month. dicyclomine 10 mg capsule 10 mg PO TID Qty: 30 1RF cetirizine [24Hour Allergy] 10 mg tablet 10 mg PO DAILY PRN (Reason: allergy symptoms) potassium chloride 10 mEq tablet extended release 10 meq PO QHS meloxicam 7.5 mg tablet 7.5 mg PO DAILY PRN (Reason: pain) Contrave 8-90 mg tablet extended release 1 tab PO BID Patient Comments: LAST DOSE WILL BE 03/13/25 FOR SURGERY ON 03/16/25 estradiol [Estrace] 1 mg tablet 1 mg PO DAILY Qty: 90 3RF baclofen 10 mg tablet 10 mg PO QDAY PRN (Reason: muscle spasm) Qty: 30 1RF Rx Instructions: TAKE 1 TABLET BY MOUTH NEEDED FOR PAIN daily; Other Ambulatory Orders: 12 Lead EKG (Routine) Timeframe: 20250313 Location: None Selected Ordered By: Dr. Warner Mahoney Referrals / Follow Up: Jill Zelaya MD [Primary Care Provider] - Disposition Disposition (needs filled in before D/C Order can be placed): Home, Self Care 03/15/25 0937Fernando Ontiveros MD CC: Dr. Jill Zelaya MD ~ Signed [facility]06-12-2025 Consult note [facility] Medical Records Department [address] [place] [address] Pre-Anesthesia Evaluation 03/15/25 0758 MR#: [id number] Acct: [id number] Name: MORENO VANESSA Rep #:[id number] : 1965 59 From: Warner Mahoney MD PCP: Dr. Jill Zelaya MD Status:REG IAC Y Race: C Location: [place] [address]- ASA Classification* ASA Classification ASA Classification: 2 Assessment & Plan Anesthesia* Anesthesia Assessment Anesthesia Assessment: Discussed sedation and/or anesthesia options, risks, benefits, and alternatives with patient/parents/legal guardian/POA. Questions invited. The patient/parents/legal guardian/POA seems to understand and agrees to proceedwith anesthesia plan. Reviewed the physical assessment, medical history, allergy history and patient home medications list prior to surgery/procedure/anesthetic and documented any changes. Performed airway and anesthesia risk assessments. Anesthesia Type Anesthesia Type: General Anesthesia Focused Assessment* Temperature: 98.1 F Pulse Rate: 82 Blood Pressure: 118/60 Respiratory Rate: 16 Pulse Ox: 97 Airway Assessment Mouth opens: >3 cm Mallampati Score: II Labs Anesthesia Preop lab: CBC WBC 7.4 K/mm3 (4.4-11.0) 08/15/24 08:42 08/15/24 RBC 4.29 M/mm3 (4.2-5.4) 08/15/24 08:42 08/15/24 Hgb 13.4 g/dL (12.0-15.0) 08/15/24 08:42 08/15/24 Hct 40.8 % (37-47) 08/15/24 08:42 08/15/24 Plt Count 323 K/mm3 (150-450) 08/15/24 08:42 08/15/24 CHEMISTRY Potassium 4.2 mmol/L (3.3-5.1) 03/13/25 10:03 03/13/25 Sodium 140 mmol/L (133-145) 03/13/25 10:03 03/13/25 Magnesium 2.3 mg/dL (1.6-2.6) 08/15/24 08:42 08/15/24 BUN 17 mg/dL (4-19) 03/13/25 10:03 03/13/25 Creatinine 0.91 mg/dL (0.70-1.20) 03/13/25 10:03 03/13/25 Glucose 97 mg/dL (70-99) 03/13/25 10:03 03/13/25 TSH 1.460 uIU/mL (0.358-3.740) 08/15/24 08:42 08/04 11/27 COAG Pre-Assessment Diagnosis/Proposed Procedure Planned Operative Procedure(s): Laparoscopic, Cholecystectomy with IOC Anesthesia History Anesthesia History - customer care professional: Anesthesia History - customer care professional Hx Hospitalization No 03/09/25 10:35 Any Problems With Anesthesia No 03/09/25 10:35 Cholinesterase deficiency No 03/09/25 10:35 You/Your Family Experience No 03/09/25 10:35 fever (hyperthermia) with Relationship Recent Exposure to Contagious No 03/15/25 07:12 Disease Does patient have nerve No 03/09/25 [...] take am of surgery PONV PONV - customer care professional: PONV - customer care professional Female Yes 03/09/25 10:35 HX of Motion Sickness No 03/09/25 10:35 HX of N/V After Surgery No 03/09/25 10:35 Non-Smoker Yes 03/09/25 10:35 Duration of Surgery greater Yes 03/09/25 10:35 than 60 minutes Number of Risk Factors 3 03/09/25 10:35 PONV Score Moderate Risk 03/09/25 10:35 Height & Weight Height & Weight: Anesthesia: Height & Weight Height 5 ft 9 in 03/15/25 07:12 Weight: 91.5 kg 03/15/25 07:12 Body Mass Index (BMI) 29.7 03/15/25 07:12 Respiratory Assessment Respiratory Assessment - customer care professional: Respiratory Tract Infection Hx - customer care professional Hx Respiratory Tract Infection No 03/09/25 10:35 STOP Sleep Apnea STOP Sleep Apnea - customer care professional: STOP Sleep Apnea - customer care professional Hx Hypertension No 03/09/25 10:35 Hx Sleep [...] than talking or can be heard through closeddoors)? Tobacco Use History Tobacco Use History - customer care professional: Tobacco Use History - customer care professional Tobacco Use Smoking Status Never smoker 03/09/25 10:35 Hx Tobacco Use No 03/09/25 10:35 Years Smoking Packs Smoked per Day Smoking Cessation Date was within the last 15 years Hx Smoking Cessation Date Hx Smoking Cessation Counseling Hematologic Medial History Hematologic Hx - customer care professional: Hematologic Medical Hx - tar pot man Hx of Blood Transfusion Yes 03/09/25 10:35 Hx of Transfusion in last 3 No 03/09/25 10:35 Months Date of Last Transfusion (if within last 3 months) Ever experience any problems No 03/09/25 10:35 with transfusion(s)? Specify any problems Hx of Preganancy in last 3 No 03/09/25 10:35 Months Nurse Filling Out Transfusion MGRIFFITH 03/09/25 10:35 & Questions: Date: 03/09/25 03/09/25 10:35 Time: 10:37 03/09/25 10:35 Patient unable to answer at this time (ie. confused, unrespo /Reproduction History /Reproductive History - customer care professional: /Reproductive Hx- customer care professional Hx Now No 03/09/25 10:35 Gestational Age (in weeks): EDC: Hx Hx Para Hx Section SAB No 03/09/25 10:35 Active Medications Active Medications: Current Medications Generic Name Dose Route Start Last Admin Trade Name Freq PRN Reason Stop Dose Admin Indocyanine Green 3.75 mg/ N/A 1.5 mls @ 999 mls/hr 03/15/25 11:45 03/15/25 07:38 IV 03/15/25 11:46 999 mls/hr PREOP ONE Administration Lactated Ringer's 1,000 mls @ 15 mls/hr 03/15/25 07:00 03/15/25 07:18 IV 15 mls/hr .Q48H LONNIE Administration PFSH Medical History Anxiety History of IBS History of stress test RUQ abdominal pain Wears glasses History of steroid therapy Back pain Non-smoker Colitis Leg cramps History of pain when walking History of edema Acute diarrhea Neuropathy of right foot Peripheral neuropathy Erythromelalgia Scoliosis Asthma Degenerative disc disease Depression Home Medications ?Medication ?Instructions ?Recorded ?Last Taken ?Type multivitamin 1 tab PO DAILY 06/17/2203/04 History ascorbate calcium (vitamin C) 500 500 mg PO DAILY 09/0403/14/25 History mg tablet cholecalciferol (vitamin D3) 125 125 mcg PO DAILY 09/0403/14/25 History mcg (5,000 unit) tablet flaxseed oil 1,000 mg capsule 1,000 mg PO DAILY 03/14/25 History budesonide-formoterol HFA 160 2 puff inhalation .Q4-6 PRN 11/05/23 Unknown Rx mcg-4.5 mcg/actuation aerosol shortness of breath or w heezing inhaler (Symbicort) #10.2 grams estradiol 1 mg tablet (Estrace) 1 mg PO DAILY #90 tabs 12/05/24 03/14/25 Rx duloxetine 60 mg capsule,delayed 60 mg PO BID #60 caps 12/07/24 03/14/25 Rx release furosemide 20 mg tablet 20 mg PO BID #60 tabs 03/14/25 Rx lidocaine-prilocaine 2.5 %-2.5 % 1 g topical .QID PRN pain #60 grams 12/07/24 Unknown Rx topical cream baclofen 10 mg tablet 10 mg PO QDAY PRN muscle spa sm #30 01/16/25 Unknown Rx tabs dicyclomine 10 mg capsule 10 mg PO TID #30 caps Unknown Rx cetirizine 10 mg tablet (24Hour 10 mg PO DAILY PRN all ergy symptoms 03/09/25 03/14/25 History Allergy) meloxicam 7.5 mg tablet 7.5 mg PO DAILY PRN pain 03/2803/14/25 History naltrexone 8 mg-bupropion 90 mg 1 tab PO BID WT LOSS 0 03/09/25 03/12/25 History tablet,extended release (Contrave) potassium chloride 10 mEq 10 meq PO QHS 03/09/2503/14 History tablet,extended release Allergy/AdvReac Type Severity Reaction Status Date / Time Sulfa (Sulfonamide Allergy Mild rash Verified 03/15/25 07:10 Antibiotics) acetaminophen (From Vicodin) AdvReac Intermediate Other Verified 03/15/25 07:10 hydrocodone (From Vicodin) AdvReac Intermediate Other Verified 03/15/25 07:10 Family History Other Adopted Surgical History Hx of colonoscopy History of surgical procedure H/O tubal ligation S/P laparoscopic assisted vaginal hysterectomy (LAVH) delivery delivered Social History adopted: Yes household members: spouse current occupational status: employed current occupation: [employer] Smoking Status: Never smoker Electronic Cigarette Use: not used alcohol intake: current alcohol intake frequency: holidays/special occasions only details: social substance use type: does not use caffeine: Yes what type of physical activity do you participate in: none seatbelt use: always do you feel safe at home: Yes additional social history: [place]- Review of Systems (Anesthesia) ROS Narrative System reviewed and no additional complaints, except as documented. 03/15/25 0758 > Date _ Warner Mahoney MD Cosigner Signature: Date CC: ~ Signed [facility]06-12-2025 History and physical note [facility] Medical Records Department [address] [place] [address] History & Physical Exam 03/15/25 0747 MR#: [id number] Acct: [id number] Name: MORENO VANESSA Rep #:[id number] : 1965 59 From: Fernando Ontiveros MD PCP: Dr. Jill Zelaya MD [place] [facility] [place] Location: [address] HPI - General General Date of Admission: 03/15/25 Date of Service: 03/15/25 Chief Complaint: RUQ pain HPI Narrative MORENO VANESSA, is a 59 F who presents fpr robotic cholecystectomy. recent RUq pain and gallstones [facility] Medical History (Updated 03/09/25 @ 10:45 by Sheila Snow) Anxiety History of IBS History of stress test RUQ abdominal pain Wears glasses History of steroid therapy Back pain Non-smoker Colitis Leg cramps History of pain when walking History of edema Acute diarrhea Neuropathy of right foot Peripheral neuropathy Erythromelalgia Scoliosis Asthma Degenerative disc disease Depression Home Medications ?Medication ?Instructions ?Recorded ?Last Taken ?Type multivitamin 1 tab PO DAILY 06/17/2203/04 History ascorbate calcium (vitamin C) 500 500 mg PO DAILY 09/0403/14/25 History mg tablet cholecalciferol (vitamin D3) 125 125 mcg PO DAILY 09/0403/14/25 History mcg (5,000 unit) tablet flaxseed oil 1,000 mg capsule 1,000 mg PO DAILY 03/14/25 History budesonide-formoterol HFA 160 2 puff inhalation .Q4-6 PRN 11/05/23 Unknown Rx mcg-4.5 mcg/actuation aerosol shortness of breath or w heezing inhaler (Symbicort) #10.2 grams estradiol 1 mg tablet (Estrace) 1 mg PO DAILY #90 tabs 12/05/24 03/14/25 Rx duloxetine 60 mg capsule,delayed 60 mg PO BID #60 caps 12/07/24 03/14/25 Rx release furosemide 20 mg tablet 20 mg PO BID #60 tabs 03/14/25 Rx lidocaine-prilocaine 2.5 %-2.5 % 1 g topical .QID PRN pain #60 grams 12/07/24 Unknown Rx topical cream baclofen 10 mg tablet 10 mg PO QDAY PRN muscle spa sm #30 01/16/25 Unknown Rx tabs dicyclomine 10 mg capsule 10 mg PO TID #30 caps Unknown Rx cetirizine 10 mg tablet (24Hour 10 mg PO DAILY PRN all ergy symptoms 03/09/25 03/14/25 History Allergy) meloxicam 7.5 mg tablet 7.5 mg PO DAILY PRN pain 03/2803/14/25 History naltrexone 8 mg-bupropion 90 mg 1 tab PO BID WT LOSS 0 03/09/25 03/12/25 History tablet,extended release (Contrave) potassium chloride 10 mEq 10 meq PO QHS 03/09/2503/14 History tablet,extended release Allergy/AdvReac Type Severity Reaction Status Date / Time Sulfa (Sulfonamide Allergy Mild rash Verified 03/15/25 07:10 Antibiotics) acetaminophen (From Vicodin) AdvReac Intermediate Other Verified 03/15/25 07:10 hydrocodone (From Vicodin) AdvReac Intermediate Other Verified 03/15/25 07:10 Family History Other Adopted Surgical History Hx of colonoscopy History of surgical procedure H/O tubal ligation S/P laparoscopic assisted vaginal hysterectomy (LAVH) delivery delivered Social History adopted: Yes household members: spouse current occupational status: employed current occupation: [employer] Smoking Status: Never smoker Electronic Cigarette Use: not used alcohol intake: current alcohol intake frequency: holidays/special occasions only details: social substance use type: does not use caffeine: Yes what type of physical activity do you participate in: none seatbelt use: always do you feel safe at home: Yes additional social history: [place]- Vital Signs Vital Signs Vital Signs: 03/15/25 07:12 03/15/25 07:12 Temperature 98.1 F Temperature Source Temporal Pulse Rate 82 Respiratory Rate 16 Respiratory Pattern Normal Blood Pressure 118/60 Blood Pressure Mean 79 Blood Pressure Source Monitor Blood Pressure Position Supine Blood Pressure Location Left Arm Pulse Ox 97 Oxygen Delivery Method Room Air Weight Weight: 201 lb 11.567 oz Body Mass Index (BMI) 29.7 Physical Exam Const alert and oriented x3 Results Lab / Micro Data 03/13/25 10:03 Assessment & Plan Assessment/Plan (1) RUQ abdominal pain: PLAN: Plan robotic rachel today 03/15/25 0748 Cosigner Signature (if applicable): CC: Dr. Jill Zelaya MD; Dr. Fernando Ontiveros MD~ Signed [facility]06-12-2025 [facility] Medical Records Department [address] [place] [address] History Physical Exam 03/15/25 0747 MR#: [id number] Acct: [id number] Name: MORENO VANESSA Rep #: [id number] : 1965 59 From: Fernando Ontiveros MD PCP: Dr. Jill Zelaya MD [place] [facility] [place]: [place] [address] HPI - General General Date of Admission: 03/15/25 Date of Service: 03/15/25 Chief Complaint: RUQ pain HPI Narrative MORENO VANESSA, is a 59 F who presents fpr robotic cholecystectomy. recent RUq pain and gallstones [facility] Medical History (Updated 03/09/25 @ 10:45 by [...] ???Type multivitamin 1 tab PO DAILY 06/17/22 03/14/25 H istory ascorbate calcium (vitamin C) 500 500 mg PO DAILY 09/24/22 03/14/25 History mg tablet cholecalciferol (vitamin D3) 125 125 mcg PO DAILY 09/24/22 03/14/25 History mcg (5,000 unit) tablet flaxseed oil 1,000 mg capsule 1,000 mg PO DAILY 09/24/22 5 History budesonide-formoterol HFA 160 2 puff inhalation .Q4-6 PRN Unknown Rx mcg-4.5 mcg/actuation aerosol shortness of breath or wheezing inhaler (Symbicort) #10.2 grams estradiol 1 mg tablet (Estrace) 1 mg PO DAILY #90 tabs 12/05/24 Rx duloxetine 60 mg capsule,delayed 60 mg PO BID #60 caps 12/07/2408/28 Rx release furosemide 20 mg tablet 20 mg PO BID #60 tabs 12/07/2408/28 Rx lidocaine-prilocaine 2.5 %-2.5 % 1 g topical .QID PRN pain #60 gram s 12/07/24 Unknown Rx topical cream baclofen 10 mg tablet 10 mg PO QDAY PRN muscle spasm #30 01/16/25 Unknown Rx tabs dicyclomine 10 mg capsule 10 mg PO TID #30 caps 03/07/25 Unk nown Rx cetirizine 10 mg tablet (24Hour 10 mg PO DAILY PRN allergy symptom s 03/09/25 03/14/25 History Allergy) meloxicam 7.5 mg tablet 7.5 mg PO DAILY PRN pain 03/09/25 03/14/25 History naltrexone 8 mg-bupropion 90 mg 1 tab PO BID WT LOSS 03/09/25 06/06/28 History tablet,extended release (Contrave) potassium chloride 10 mEq 10 meq PO QHS 03/09/25 03/14/25 Hi story tablet,extended release Allergy/AdvReac Type Severity Reaction Status Date / Time Sulfa (Sulfonamide Allergy Mild rash Verified 03/15/25 07:10 Antibiotics) acetaminophen (From Vicodin) AdvReac Intermediate Other Verified 03/15/25 07:10 hydrocodone (From Vicodin) AdvReac Intermediate Other Verified 03/15/25 07:10 Family History Other Adopted Surgical History Hx of colonoscopy History of surgical procedure H/O tubal ligation S/P laparoscopic assisted vaginal hysterectomy (LAVH) delivery delivered Social History adopted: Yes household members: spouse current occupational status: employed current occupation: [employer] Smoking Status: Never smoker Electronic Cigarette Use: not used alcohol intake: current alcohol intake frequency: holidays/special occasions only details: social substance use type: does not use caffeine: Yes what type of physical activity do you participate in: none seatbelt use: always do you feel safe at home: Yes additional social history: [facility] [facility] Signs Vital Signs Vital Signs: 03/15/25 07:12 03/15/25 07:12 Temperature 98.1 F Temperature Source Temporal Pulse Rate 82 Respiratory Rate 16 Respiratory Pattern Normal Blood Pressure 118/60 Blood Pressure Mean 79 Blood Pressure Source Monitor Blood Pressure Position Supine Blood Pressure Location Left Arm Pulse Ox 97 Oxygen Delivery Method Room Air Weight Weight: 201 lb 11.567 oz Body Mass Index (BMI) 29.7 Physical Exam Const alert and oriented x3 Results Lab / Micro Data 03/13/25 10:03 Assessment Plan Assessment/Plan (1) RUQ abdominal pain: PLAN: Plan robotic rachel today 03/15/25 0748 Cosigner Signature (if applicable): CC: Dr. Jill Zelaya MD; Dr. Fernando Ontiveros MD [facility] Radiology Diagnostic study note [facility] Imaging Services [address] [place], [place] [id number] Gallbladder MR#: [id number] Acct: [id number] Name: MORENO VANESSA Rep #: [id number] : 1965 F 59 From: Donna Desai MD PCP: Dr. Jill Zelaya MD Status: REG CLI Study:Gallbladder Date of Exam: 03/06/25 Exam# [id number] Ordering Dr: Fatemeh Urbina MD PROCEDURE: GALLBLADDER [...] lodged in the gallbladder neck. Reading Location: [facility] CC: Dr. Jill Zelaya MD; Dr. Fatemeh Urbina MD ~ Market Risk Manager: Marco [facility]04-18-2025 Evaluation note* Diagnosis Onset Date Resolution Status Admit Date Body dysmorphic disorder acute January 19, 2025 [...] January 25, 2025 12:58pm RUQ abdominal pain resolved March 072024 3:07pm RUQ abdominal pain resolved March 042024 10:26am S/P laparoscopic cholecystectomy resolved March 15, 2025 10:26am Tachycardia resolved March 15 10:26am S/P cholecystectomy acute March 28, 2025 2:14pm Chest pain acute March 29 9:21am SVT (supraventricular tachycardia) acute March 29, 2025 9:21am [facility] Work Phone: 1(318) 676-422304-18-2025 Evaluation note* Diagnosis Onset Date Resolution Status Admit Date Body dysmorphic disorder acute January 19, 2025 [...] January 25, 2025 12:58pm RUQ abdominal pain resolved March 072024 3:07pm RUQ abdominal pain resolved March 042024 10:26am S/P laparoscopic cholecystectomy resolved March 15, 2025 10:26am Tachycardia resolved March 15 10:26am S/P cholecystectomy acute March 28, 2025 2:14pm Chest pain acute March 29 9:21am SVT (supraventricular tachycardia) acute March 29, 2025 9:21am S/P cholecystectomy acute April 09, 2025 12:50pm [facility] Work Phone: 1(758) 188-936304-18-2025 Evaluation note* Diagnosis Onset Date Resolution Status Admit Date Body dysmorphic disorder acute January 19, 2025 [...] January 25, 2025 12:58pm RUQ abdominal pain resolved March 072024 3:07pm RUQ abdominal pain resolved March 042024 10:26am S/P laparoscopic cholecystectomy resolved March 15, 2025 10:26am Tachycardia resolved March 15 10:26am S/P cholecystectomy acute March 28, 2025 2:14pm Chest pain acute March 29 9:21am SVT (supraventricular tachycardia) acute March 29, 2025 9:21am S/P cholecystectomy acute April 09, 2025 12:50pm Greater trochanteric bursiti s of right hip acute April 27, 2025 1:55pm [facility] Work Phone: [phone]) [phone] Evaluation note* Diagnosis Onset Date Resolution Status Admit Date Body dysmorphic disorder acute January 19, 2025 [...] January 25, 2025 12:58pm RUQ abdominal pain resolved March 072024 3:07pm RUQ abdominal pain resolved March 042024 10:26am S/P laparoscopic cholecystectomy resolved March 15, 2025 10:26am Tachycardia resolved March 15 10:26am S/P cholecystectomy acute March 28, 2025 2:14pm Chest pain acute March 29 9:21am SVT (supraventricular tachycardia) acute March 29, 2025 9:21am S/P cholecystectomy acute April 09, 2025 12:50pm Greater trochanteric bursiti s of right hip acute April 27, 2025 1:55pm Greater trochanteric bursiti s of right hip acute April 30, 2025 2:39pm Scoliosis of lumbar region d ue to degenerative disease of spine in adult acute April 30, 2025 2:39pm [facility] Work Phone: 1([phone]) 597-266203-06-2025 Evaluation note* Diagnosis Onset Date Resolution Status Admit Date Depression acute December 07 12:57pm Edema of [...] RUQ abdominal pain acute March 072024 3:07pm RUQ abdominal pain acute March 042024 10:26am S/P laparoscopic cholecystectomy acute March 15, 2025 10:26am Tachycardia acute March 15 10:26am [facility] Work Phone: 1(665) 200-126003-06-2025 Evaluation note* Diagnosis Onset Date Resolution Status Admit Date Depression acute December 07 12:57pm Edema of [...] January 25, 2025 12:58pm RUQ abdominal pain resolved March 072024 3:07pm RUQ abdominal pain resolved March 042024 10:26am S/P laparoscopic cholecystectomy resolved March 15, 2025 10:26am Tachycardia resolved March 15 10:26am [facility] Work Phone: [phone]) [phone] Evaluation note* Diagnosis Onset Date Resolution Status Admit Date Depression acute December 07 12:57pm Edema of [...] January 25, 2025 12:58pm RUQ abdominal pain resolved March 072024 3:07pm RUQ abdominal pain resolved March 042024 10:26am S/P laparoscopic cholecystectomy resolved March 15, 2025 10:26am Tachycardia resolved March 15 10:26am S/P cholecystectomy acute March 28, 2025 2:14pm Chest pain acute March 29 9:21am SVT (supraventricular tachycardia) acute March 29, 2025 9:21am [facility] Work Phone: [phone]) [phone] Evaluation note* Diagnosis Onset Date Resolution Status [...] hip pain noneactive January 25, 2025 12:58pm [facility] Work Phone: 1(447) 390-404202-11-2025 Evaluation note* Diagnosis Onset Date Resolution Status [...] RUQ abdominal pain acute March 072024 3:07pm [facility] Work Phone: 1([phone]) 233-880001-14-2025 Evaluation note* Diagnosis Onset Date Resolution Status Admit Date Obesity (BMI 30-39.9) acute Eldon uary 2024 11:47am Overweight acute October 17, 2024 11:47am Encounter for routine gynecological examination noneactive Herman mahmood 2024 11:47am Body dysmorphic disorder acute November 14, 2024 11:48am Depression acute November 14, 2024 11:48am Overweight acute November 14, 2024 11:48am Overweight (BMI 25.0-29.9) resolved November 14, 2024 11:48am Depression acute December 07 12:57pm Edema of lower extremity acute December 07, 2024 12:57pm Polyneuropathy acute December 07, 2024 12:57pm [facility] Work Phone: 1([phone]) 877-478006-27-2024 Instructions* Patient Instructions* Rosina Aparicio MD - 03/30/2024 5:52 PM EDT __Supplement: diosmin - hesperidin __try Pepcid -- H2 histamine kalli __neurology consult for small fiber neuropathy [facility] History of Present illness Narrative* Rosina Aparicio MD - 03/30/2024 5:35 PM EDT Images from the original note were not included. [facility] Department of Cardiovascular Medicine SECTION [...] medications for this visit. Review of history: [facility] 12/09/2023 -- previously saw Dr. Diez as well. 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 Subjective: [...] her, previously seen by my colleague Dr. Diez with [facility] 03/05/2023. Presumptive diagnosis of erythromelagia -- [...] well tolerated. __Follow up: spring/summer 2024. Rosina Aparicio MD documented in this encounterPar[facility]04-15-2024 Discharge summary Author Christian Wadsworth [facility] January 17, 2024 12:48pm Note Date/Time January 17, 2024 12: 48pm [facility] Physical Therapy [facility] [address] [place] [address] / REHABILITATION SERVICES DISCHARGE SUMMARY MR#: [id number] Acct: [id number] Name: MORENO VANESSA Rep #: [id number] : 1965 58 From: Cert. DARREL RuizT, OCS Referring Dr.: Dr. Jill Zelaya MD Status: REG RCR Insurance: [employer] SELF PAY INSURANCE Discharge Summary D/C summary: [...] please feel free to call me at [phone]. Thank you for the referral of thispatient. Sincerely, Christian Wadsworth PT, Cert MDT, OCS Balance/Gait/Functional tests Balance/Special Test Scores Lower Extremity Functional Score: 64 Improvement % Improvement: 50 <Electronically signed by Arnaud Thorpe PT. HOANG, DARELL> 01/17/24 1248 CC: Dr. Jill Zelaya MD ~ TERESA Signed [facility] Work Phone: [phone] Instructions* Patient Instructions* Rosina Aparicio MD - 12/09/2023 4:18 PM EST __Schedule with Neurology __Schedule PVR __Medications: Zyrtec 10mg once a day Aspirin 325mg once a day (take with food) Topical lidocaine patches or 4% gel __Follow up: 3 months documented in this encounterPar[facility]03-07-2024 History of Present illness Narrative* Rosina Aparicio MD - 12/09/2023 3:04 PM EST Images from the original note were not included. [facility] Department of Cardiovascular Medicine SECTION OF VASCULAR MEDICINE OUTPATIENT VISIT DATE December 09, 2023 OUTPATIENT VISIT TYPE CONSULTATION Consult regarding: erythromelalgia Consult requested by: Rory Diez My final recommendations will be communicated back [...] care, previously seen by my colleague Dr. Diez with [facility] 03/05/2023. Presumptive diagnosis of erythromelagia. She also had prior evaluation with Neurology and was found to have a neuropathy (small vs large fiber?). Gave Rx for topical ketamine / amitriptyline. She brought outside records today-- 07/23/2022 EMG [[facility]] reports generalized mild sensory and motor [...] Cancer (HCC), Chronic obstructive pulmonary disease (COPD) ([facility]), Chronic renal insufficiency, Congestive heartfailure ([facility]), Coronary artery disease, Diabetes (HCC), Epilepsy ([facility]), Fibromyalgia, Hypertension, Hypothyroidism, Motor vehicle accident, Obesity, Obstructive sleep apnea, Sleep disorder, Steroid long-term use, Stroke (HCC), Substance abuse ([facility]), Syncope, or Traumatic brain injury ([facility]). Past surgical history: has a past surgical [...] in help with quitting? 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 Diez with [facility] 03/05/2023. 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 I will send her a Rx for the compound medication. All questions answered. Rory Diez MD documented in this encounterPar[facility]08-28-2011 History of Past illness Narrative* Problem [...] of this encounter (statuses as of 03/05/2023) [facility]08[facility] History of Past illness Narrative* Problem [...] of this encounter (statuses as of 01/04/2024) [facility] Hospital[facility] summary Author Sidney Gregg [facility] Note Date/Time March 16, 2025 10:2 1am [facility] Medical Records Department [address] [place] [address] Discharge Summary 03/16/25 1017 MR#: [id number] Acct: [id number] Name: MORENO VANESSA Rep #:[id number] : 1965 59 From: Sidney Gregg DO PCP: Dr. Jill Zealya MD Status:ADM IN Location: [place] [address]-1 Providers Date of Admission: 03/15/25 Primary Care Physician: Dr. Jill Zelaya MD Consultations 03/15/25 11:17 Consult: Cardiology Routine Consulting Provider: Edgardo Lacy Reason for Consult: SVT EMERGENT Consult: No MD Notified: Yes Date Notified: 03/15/25 Time Notified: 10:39 Method of Notification: Verbal Consult: General Surgery Routine Consulting Provider: Fernando Ontiveros Reason for Consult: s/p lap rachel EMERGENT Consult: No MD Notified: Yes Date Notified: 03/15/25 Time Notified: 10:39 Method of Notification: Verbal Reason For Visit: SVT,VT Diagnosis Discharge Diagnosis (1) Tachycardia: Status: Acute Code(s): R00.0 - Tachycardia, unspecified Plan: Began SVT and it was noted on telemetry strips. Then was in SVT and it was noted on telemetry as well as an EKG. Did receive adenosine 12 mg and has sincebeen in normal sinus rhythm. I ordered the adenosine given in the PACU I ordered EKG and reviewed the pre and post adenosine EKG. Pre-EKG showed SVT as well as post showed sinus tachycardia. I have ordered troponins, echocardiogram, D-dimer and personally reviewed these tests.: Troponin series were negative. 2D echocardiogram showed EF of 60% with mild tricuspid valve insufficiency, RVSP of 3141 mmHg. Mild focal aortic valve calcification. D-dimer is negative so no PE and no CTA needed at this time. I spoke with Dr. Lacy of cardiology and he is on consultation for further input. It was reported the patient has had tachycardia palpitation type symptoms in thepast. Unclear if that is at all what were dealing with in the PACU or if that something else. Will continue to monitor patient on telemetry. Seen by cardiology. [place] it was SVT for the duration--the wide-complex tachycardia was SVT with aberrancy. Started on metoprolol succinate 25/d (2) S/P laparoscopic cholecystectomy: Status: Acute Code(s): Z90.49 - Acquired absence of other specified parts of digestive tract Plan: Discussed with svitlana Renteria for home. Pain medication Plan VTE prophylaxis with SCDs. Initially admitted to the intensive care unit for close monitoring but patient has remained stable. Will de-escalate the patient to PCU status. Medications at Discharge Home Medications multivitamin 1 tab PO DAILY 06/17/22 ascorbate calcium (vitamin C) 500 mg tablet 500 mg PO DAILY 09/24/22 cholecalciferol (vitamin D3) 125 mcg (5,000 unit) tablet 125 mcg PO DAILY 09/24/22 flaxseed oil 1,000 mg capsule 1,000 mg PO DAILY 09/24/22 budesonide-formoterol HFA 160 mcg-4.5 mcg/actuation aerosol inhaler (Symbicort) 2 puff inhalation .Q4-6 PRN shortness of breath or wheezing #10.2 grams 11/05/23 estradiol 1 mg tablet (Estrace) 1 mg PO DAILY #90 tabs 12/05/24 duloxetine 60 mg capsule,delayed release 60 mg PO BID #60 caps 12/07/24 furosemide 20 mg tablet 20 mg PO BID #60 tabs 12/07/24 lidocaine-prilocaine 2.5 %-2.5 % topical cream 1 g topical .QID PRN pain #60 grams 12/07/24 baclofen 10 mg tablet 10 mg PO QDAY PRN muscle spasm #30 tabs 01/16/25 dicyclomine 10 mg capsule 10 mg PO TID #30 caps 03/07/25 cetirizine 10 mg tablet (24Hour Allergy) 10 mg PO DAILY PRN allergy symptoms 03/09/25 meloxicam 7.5 mg tablet 7.5 mg PO DAILY PRN pain 03/09/25 naltrexone 8 mg-bupropion 90 mg tablet,extended release (Contrave) 1 tab PO BID WT LOSS 03/09/25 potassium chloride 10 mEq tablet,extended release 10 meq PO QHS 03/09/25 oxycodone-acetaminophen 5 mg-325 mg tablet (Percocet) 1 tab PO Q8H PRN pain 4 days #10 tabs 03/15/25 Hospital Course Operations - (Laparoscopic cholecystectomy) Procedures 2-D Echocardiogram Summary of Care Provided Hospital Course: This is a 59-year-old female who underwent a laparoscopic cholecystectomy on [id number]. Patient was in the PACU and has some abdominal pain and then had what appeared to be ventricular tachycardia. CODE BLUE was called. Patient did not lose consciousness. By the time that the code team arrived, patient was noted to be in SVT and no wide-complex tachycardia. Patient EKG that confirmed such. Patient received 2 mg of adenosine and then converted to sinus rhythm. Patient underwent echocardiogram that was unremarkable. Cardiology reviewed and thinks that she had SVT with aberrancy. Patient will be on metoprolol succinate 25 mg daily to help prevent further events in the future. Discussed with Dr. Ontiveros and patient is stable from a surgical perspective for discharge. Patient improved much faster than initially anticipated as it was concerned the patient actually did have ventricular tachycardia and would warrant further monitoring. But fortune with SVT patient is safe for discharge at this time. Weight / BMI Weight Weight: 94.4 kg Body Mass Index (BMI) 30.8 ABG / Lab / Microbiology Data 03/15/25 10:25 03/16/25 06:12 Laboratory: Laboratory Results - last 24 hr 03/15/25 10:25: WBC 12.5 H, RBC 4.04 L, Hgb 12.7, Hct 38.2, MCV 94.6, MCH 31.4, MCHC 33.2, RDW Std Deviation 43.4, RDW Coeff of Jemal 12.3, Plt Count 233, MPV 9.0, Immature Gran % (Auto) 0.400, Neut % (Auto) 89.7 H, Lymph % (Auto) 6.5 L, Dewey % (Auto) 1.8, Eos % (Auto) 1.1, Baso % (Auto) 0.5, Absolute Neuts (auto) 11.3 H, Absolute Lymphs (auto) 0.81 L, Nucleated RBC % 0, D-Dimer Quant (PE/DVT)0.38, Sodium 141, Potassium 4.4, Chloride 106, Carbon Dioxide 25.9, Anion Gap 8,BUN 14, Creatinine 0.82, Estim Creat Clear Calc 86.80, Est GFR (MDRD) Non-Af 81,BUN/Creatinine Ratio 17.1, Glucose 133 H, Calcium 8.3, Total Bilirubin 0.25, AST18, ALT 14, Alkaline Phosphatase 80, Troponin T High Sens < 6, Total Protein 6.0, Albumin 3.8, Globulin 2.2, Albumin/Globulin Ratio 1.8 03/15/25 12:15: Troponin T Hi Sens 2 Hr 8 03/15/25 14:15: Troponin T Hi Sens 4Hr 12 03/16/25 06:12: Sodium 140, Potassium 3.9, Chloride 107, Carbon Dioxide 25.8, Anion Gap 8, BUN 13, Creatinine 0.72, Estim Creat Clear Calc 100.36, Est GFR (MDRD) Non-Af 95, BUN/Creatinine Ratio 18.1, Glucose 113 H, Calcium 8.5, Magnesium 2.3 H, TSH 0.797 Radiography Diagnostic Testing: Radiology Impression Echocardiogram 03/15/25 11:17 Interpretation Summary The study was technically difficult. The LV systolic function is normal. EF is 60 %. Mild tricuspid valve insufficiency. RVSP estimated between 31-41 mmHg. Mild focal aortic valve calcification. Ordering Physician: Sidney Gregg Referring Physician: Fernando Ontiveros/Jill Zelaya Performed By: Magi Gallagher, ESTEE, RVT D/C Instructions Discharge Diet: Light diet - advance as tolerated May shower in (days): 1 Ice area for (Minutes): 30 Call your doctor if your incision/area has: Continuous Slow Oozing, Sudden Increased Bleeding, Increased Pain/ Swelling, Increased Redness, Foul Smelling Discharge and Swelling at the incision site Call your doctor if you observe: Fever of 101 or Higher Cleanse incision/area with: Soap & Water DC O2, CPAP, BIPAP Needs Home O2 Discharge instructions: No Please Follow Up With: Fernando Ontiveros MD When: 2 weeks. Please call office to schedule appointment Meaningful Use Info Meaningful Use Meaningful Use Diagnoses (Choose all that apply): None applicable Ischemic Stroke Statin Dosing Therapy Reference: STATIN DOSE THERAPY REFERENCE: * Patients > 75 years receive moderate or high dose statin therapy. * Patients 75 years or YOUNGER should receive HIGH intensity statin dose unless contraindicated. You will be required to document reason for non-treatment if statin daily dose does not meet guidelines. HIGH DOSE STATIN THERAPY DAILY Atorvastatin > than or = to 40 mg Rosuvastatin > than or = to 20 mg Amlodipine + Atorvastatin > than or = to 2.5/40 mg Ezetimibe + Simvastatin 10/80 mg Simvastatin 80mg Discharge Plan Admission Admit Date/Time: 03/15/25 10:26 Primary Reason for Your Visit: Symptomatic cholelithiasis Attending Provider: Fernando Ontiveros Primary Care Provider: Jill Zelaya Consulting Providers: Edgardo Lacy; Fernando Ontiveros Discharge Orders/Prescriptions Prescriptions: New oxycodone-acetaminophen [Percocet] 5-325 mg tablet 1 tab PO Q8H PRN (Reason: pain) 4 Days Qty: 10 0RF Continued multivitamin Tablet 1 tab PO DAILY flaxseed oil 1,000 mg capsule 1,000 mg PO DAILY Rx Instructions: administer with a meal cholecalciferol (vitamin D3) 125 mcg (5,000 unit) tablet 125 mcg PO DAILY ascorbate calcium (vitamin C) 500 mg tablet 500 mg PO DAILY budesonide-formoterol [Symbicort] 160-4.5 mcg/actuation HFA aerosol inhaler 2 puff inhalation .Q4-6 PRN (Reason: shortness of breath or wheezing) Qty: 10.2 1RF furosemide 20 mg tablet 20 mg PO BID Qty: 60 7RF duloxetine 60 mg capsule,delayed release(DR/EC) 60 mg PO BID Qty: 60 7RF lidocaine-prilocaine 2.5-2.5 % cream 1 g topical .QID PRN (Reason: pain) Qty: 60 7RF Rx Instructions: Dispense two 30 gm tubes per month. dicyclomine 10 mg capsule 10 mg PO TID Qty: 30 1RF cetirizine [24Hour Allergy] 10 mg tablet 10 mg PO DAILY PRN (Reason: allergy symptoms) potassium chloride 10 mEq tablet extended release 10 meq PO QHS meloxicam 7.5 mg tablet 7.5 mg PO DAILY PRN (Reason: pain) Contrave 8-90 mg tablet extended release 1 tab PO BID Patient Comments: LAST DOSE WILL BE 03/13/25 FOR SURGERY ON 03/16/25 estradiol [Estrace] 1 mg tablet 1 mg PO DAILY Qty: 90 3RF baclofen 10 mg tablet 10 mg PO QDAY PRN (Reason: muscle spasm) Qty: 30 1RF Rx Instructions: TAKE 1 TABLET BY MOUTH NEEDED FOR PAIN daily; Other Ambulatory Orders: 12 Lead EKG (Routine) Timeframe: 20250313 Location: None Selected Ordered By: Dr. Warner Mahoney Referrals / Follow Up: Jill Zelaya MD [Primary Care Provider] - Within 2 Weeks Fernando Ontiveros MD [Med Staff - Active Staff] - Within 2 Weeks Georgette Keating PA [Med Staff - Adv Practice Prof] - Within 1 Month Disposition Disposition (needs filled in before D/C Order can be placed): Home, Self Care Charges/Coding Visit Charges Inpatient E&M: 19056 Disch Hosp 03/16/25 1021 <Electronically signed by Sidney Gregg DO> Cosigner Signature (if applicable): CC: Dr. Jill Zelaya MD; Dr. Sidney Gregg DO~ Signed [facility] Work Phone: Evaluation noteNo assessment information available [facility] Work Phone: Evaluation note* Diagnosis Onset Date Resolution Status Scoliosis of lumbar region d ue to degenerative disease of spine in adult acute Scoliosis of lumbar region d ue to degenerative disease of spine in adult acute [facility] Work Phone: Evaluation note* Diagnosis Onset [...] Degenerative disc disease, lumbar noneactive Polyneuropathy noneactive [facility] Work Phone: Evaluation note* Diagnosis Onset Date Resolution Status Mild depression acute Mild intermittent asthma in adult without complication acute Immunization due noneactive Encounter for monitoring amitriptyline therapy noneactive Establishing care with new doctor, encounter for noneactive Degenerative disc disease, lumbar noneactive Polyneuropathy noneactive [facility] Work Phone: Evaluation note* Diagnosis Erythromelalgia (HCC)- Primary 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 [facility] Diagnosis Onset Date Resolution Status Mild depression acute Mild intermittent asthma in adult without complication acute Degenerative disc disease, lumbar noneactive Polyneuropathy noneactive Mild depression acute Mild intermittent asthma in adult without complication acute Acute pain of left shoulder noneactive Chronic right hip pain nonea ctive Degenerative disc disease, lumbar noneactive Polyneuropathy noneactive Encounter for routine gynecological examination noneactive [facility] Work Phone: Evaluation note* Diagnosis Onset [...] acute Asthma exacerbation acute Peripheral edema acute [facility] Work Phone: Evaluation note* Diagnosis Erythromelalgia (HCC)- Primary Erythromelalgia Neuropathy Mononeuritis of unspecified site Small fiber neuropathy Unspecified hereditary and idiopathic peripheral neuropathy Acrocyanosis (HCC) Other peripheral vascular disease documented [facility] encounter [facility] Diagnosis Erythromelalgia (HCC)- Primary Erythromelalgia Raynaud's disease without gangrene documented in this encounter [facility] Author Fernando Ontiveros [facility] Note Date/Time March 16, 2025 9:29 am [facility] Medical Records Department [address] [place] [address] Progress Note - Surgery 03/16/25 0927 MR#: [id number] Acct: [id number] Name: MORENO VANESSA Rep #:[id number] : 1965 59 From: Fernando Ontiveros MD PCP: Dr. Jill Zelaya MD Status:ADM IN Location: [address] Subjective Subjective Patient seen evaluated on rounds this morning. She denies any issues or problems. She states that her incisional pain is well-controlled and actually quite minimal. In speaking with nursing staff this morning, it sounds as thoughshe has had no further rhythm issues. She has been tolerating diet. Objective Data Objective Data Vital Signs: Vital Signs Temp Pulse Resp BP Pulse Ox O2 Del Method O2 Flow Rate 98.3 F 60 16 108/68 98 Room Air 4 03/16/25 08:26 03/16/25 08:26 03/16/25 08:26 03/16/25 08:26 03/16/25 08:26 03/16/25 09:01 03/15/25 14:00 Oxygen Flow Rate (L/min) 4 Oxygen Delivery Method Room Air Weight: 208 lb 1.862 oz Body Mass Index (BMI) 30.8 Intake & Output: Intake and Output for Last 24 Hours 03/14/25 03/15/25 03/16/25 23:59 23:59 23:59 Intake Total 1061.75 / 1061.75 Output Total 5 / 5 Balance 1056.75 / 1056.75 Lab / Micro Data 03/15/25 10:25 03/16/25 06:12 Labs: Laboratory Results - last 24 hr 03/15/25 10:25: WBC 12.5 H, RBC 4.04 L, Hgb 12.7, Hct 38.2, MCV 94.6, MCH 31.4, MCHC 33.2, RDW Std Deviation 43.4, RDW Coeff of Jemal 12.3, Plt Count 233, MPV 9.0, Immature Gran % (Auto) 0.400, Neut % (Auto) 89.7 H, Lymph % (Auto) 6.5 L, Dewey % (Auto) 1.8, Eos % (Auto) 1.1, Baso % (Auto) 0.5, Absolute Neuts (auto) 11.3 H, Absolute Lymphs (auto) 0.81 L, Nucleated RBC % 0, D-Dimer Quant (PE/DVT)0.38, Sodium 141, Potassium 4.4, Chloride 106, Carbon Dioxide 25.9, Anion Gap 8,BUN 14, Creatinine 0.82, Estim Creat Clear Calc 86.80, Est GFR (MDRD) Non-Af 81,BUN/Creatinine Ratio 17.1, Glucose 133 H, Calcium 8.3, Total Bilirubin 0.25, AST18, ALT 14, Alkaline Phosphatase 80, Troponin T High Sens < 6, Total Protein 6.0, Albumin 3.8, Globulin 2.2, Albumin/Globulin Ratio 1.8 03/15/25 12:15: Troponin T Hi Sens 2 Hr 8 03/15/25 14:15: Troponin T Hi Sens 4Hr 12 03/16/25 06:12: Sodium 140, Potassium 3.9, Chloride 107, Carbon Dioxide 25.8, Anion Gap 8, BUN 13, Creatinine 0.72, Estim Creat Clear Calc 100.36, Est GFR (MDRD) Non-Af 95, BUN/Creatinine Ratio 18.1, Glucose 113 H, Calcium 8.5, Magnesium 2.3 H, TSH 0.797 Radiography Diagnostic Testing: Radiology Impression Echocardiogram 03/15/25 11:17 Interpretation Summary The study was technically difficult. The LV systolic function is normal. EF is 60 %. Mild tricuspid valve insufficiency. RVSP estimated between 31-41 mmHg. Mild focal aortic valve calcification. Ordering Physician: Sidney Gregg Referring Physician: Fernando Ontiveros/Jill Zelaya Performed By: Magi Gallagher, ESTEE, RVT Rhythm Strip Rhythm Strip: Sinus Rhythm Rate: 93 Ectopy: None Physical Exam Narrative She is alert and oriented x 3. She is in no acute distress. Assessment & Plan Assessment/Plan (1) S/P laparoscopic cholecystectomy: PLAN: Plan The patient is a 59-year-old female who underwent an unremarkable robotic cholecystectomy yesterday however in recovery she developed SVT. This convertedwith adenosine administration. Patient was seen by cardiology and they are recommending beta-kalli on discharge and outpatient workup. She is doing wellfrom a surgical standpoint and should be okay for discharge home once medically cleared. She can follow-up with me in about 2 weeks as an outpatient. She may certainly call sooner if any issues or problems arise. Continue diet as tolerated 03/16/25928 <Electronically signed by Fernando Ontiveros MD> Cosigner Signature (if applicable): CC: ~ Signed [facility] Work Phone: [facility] for referral (narrative)* Outpatient Procedure (Routine) - Denied Specialty Diagnoses / Procedures Referred By Roger cochran Referred To Contact [facility] [place] Diagnoses Erythromelalgia (HCC) Procedures PVR ANK/BECKER/TOE PACO VAS LAB NON-INVAS PHYSIOLOGIC STD EXTREMITY ART 2 LEVEL Rory Diez MD [address] [facility] [address] [place] [address] [facility] [place] [address] Referral ID Status Reason Start Date Expiration Date V isits Requested Visits Authorized [id number] Denied Auto-Generate d Referral 03/05/2023 03/04/2024 1 0 [facility] for referral (narrative)* Outpatient Procedure (Routine) - Authorized Specialty Diagnoses / Procedures Referred By Roger cochran Referred To Contact [facility] [place] Diagnoses Erythromelalgia (HCC) Procedures PVR ANK/BECKER/TOE PACO VAS LAB NON-INVAS PHYSIOLOGIC STD EXTREMITY ART 2 LEVEL Rosina Aparicio MD [address] [place] [address] [address] Referral ID Status Reason Start Date Expiration Date Visits Requested Visits Authorized [id number] Authorized Auto-Generat ed Referral 12/09/2023 12/08/2024 1 1 * Consult, Test, Treat (Routine) - Authorized Specialty Diagnoses / Procedures Referred By Contac t Referred To Contact Neurology Diagnoses Neuropathy Small fiber neuropathy Procedures CONSULT TO NEUROLOGY OFFICE/OUTPATIENT [facility] 60 MINUTES Rosina Aparicio MD [address] [place] [address] Referral ID Status Reason Start Date Expiration Date Visits Requested Visits Authorized [id number] Authorized PCP Requested Referral 12/09/2023 12/08/2024 1 1 [facility]No reason for referral information availableWProMed[facility] Work Phone: Chief Complaint and Reason for Visit 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 EST CARE - HAS PPW Reason for Visit Scoliosis of lumbar region due to degenerative disease of spine in adult Scoliosis of lumbar region due to degenerative disease of spine in adult Mild depression Mild intermittent asthma in adult without complication Immunization due Encounter for monitoring amitriptyline therapy Establishing care with new doctor, encounter for Degenerative disc disease, lumbar Polyneuropathy Chief Complaint [employer]. 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) October 17, 2024 1 1:47am 1 M [...] 12: 58pm Overweight (BMI 25.0-29.9) January 25 025 12:58pm Degenerative disc disease, lumbar January 25, 2025 12:58pm Polyneuropathy January 25, 2025 12: 58pm Bilateral hip pain January 25, 2025 12: 58pm RUQ abdominal pain March 07, 2025 3:07p m Chief Complaint Admit Date 4 M FU December 07, 2024 12:5 7pm Weight Management January 19, 2025 12: 24pm 6 M FU January 25, 2025 12: 58pm RUQ PAIN March 06, 2025 7:44a m GALLSTONES March 07, 2025 3:07p m Laparoscopic, Cholecystectomy with IOC J 2024 7:47am SVT,VT March 15, 2025 10:2 6am SVT,VT March 15, 2025 4:37 pm SVT,VT March 16, 2025 6:49 am SVT,VT March 16, 2025 9:27 am Reason for Visit Admit Date Depression December 07, 2024 12:5 7pm Edema of lower extremity December 07, 2024 12:57pm Polyneuropathy December 07, 2024 12:5 7pm Body dysmorphic disorder January 19 12:24pm Depression January 19, 2025 12: 24pm Overweight January 19, 2025 12: 24pm Overweight (BMI 25.0-29.9) January 19, 2 025 12:24pm Mild intermittent asthma in adult withou t complication January 25, 2025 12:58pm Mild depression January 25, 2025 12: 58pm Immunization due January 25, 2025 12: 58pm Overweight (BMI 25.0-29.9) January 25, 2 025 12:58pm Degenerative disc disease, lumbar January 25, 2025 12:58pm Polyneuropathy January 25, 2025 12: 58pm Bilateral hip pain January 25, 2025 12: 58pm RUQ abdominal pain March 07, 2025 3:07p m RUQ abdominal pain March 15, 2025 10:2 6am S/P laparoscopic cholecystectomy March 152024 10:26am Tachycardia March 15, 2025 10:2 6am Chief Complaint Admit Date 4 M FU December 07, 2024 12:5 7pm Weight Management January 19, 2025 12: 24pm 6 M FU January 25, 2025 12: 58pm RUQ PAIN March 06, 2025 7:44a m GALLSTONES March 07, 2025 3:07p m PREOP March 13, 2025 9:50 am Laparoscopic, Cholecystectomy with IOC J 2024 7:47am SVT,VT March 15, 2025 10:2 6am SVT,VT March 15, 2025 4:37 pm SVT,VT March 16, 2025 6:49 am SVT,VT March 16, 2025 9:27 am f/u lap rachel March 28, 2025 2:14 pm Chief Complaint Admit Date 4 M FU December 07, 2024 12:5 7pm Weight Management January 19, 2025 12: 24pm 6 M FU January 25, 2025 12: 58pm RUQ PAIN March 06, 2025 7:44a m GALLSTONES March 07, 2025 3:07p m PREOP March 13, 2025 9:50 am Laparoscopic, Cholecystectomy with IOC J 2024 7:47am SVT,VT March 15, 2025 10:2 6am SVT,VT March 15, 2025 4:37 pm SVT,VT March 16, 2025 6:49 am SVT,VT March 16, 2025 9:27 am f/u lap rachel March 28, 2025 2:14 pm Tachycardia WC 03/15March 29, 2025 9:2 1am Reason for Visit Admit Date Depression December 07, 2024 12:5 7pm Edema of lower extremity December 07, 2024 12:57pm Polyneuropathy December 07, 2024 12:5 7pm Body dysmorphic disorder January 19 12:24pm Depression January 19, 2025 12: 24pm Overweight January 19, 2025 12: 24pm Overweight (BMI 25.0-29.9) January 19, 2 025 12:24pm Mild intermittent asthma in adult withou t complication January 25, 2025 12:58pm Mild depression January 25, 2025 12: 58pm Immunization due January 25, 2025 12: 58pm Overweight (BMI 25.0-29.9) January 25, 2 025 12:58pm Degenerative disc disease, lumbar January 25, 2025 12:58pm Polyneuropathy January 25, 2025 12: 58pm Bilateral hip pain January 25, 2025 12: 58pm RUQ abdominal pain March 07, 2025 3:07p m RUQ abdominal pain March 15, 2025 10:2 6am S/P laparoscopic cholecystectomy March 152024 10:26am Tachycardia March 15, 2025 10:2 6am S/P cholecystectomy March 28, 2025 2:14 pm Chest pain March 29, 2025 9:21 am SVT (supraventricular tachycardia) March 29, 2025 9:21am Chief Complaint Admit Date Weight Management January 19, 2025 12: 24pm 6 M FU January 25, 2025 12: 58pm RUQ PAIN March 06, 2025 7:44a m GALLSTONES March 07, 2025 3:07p m PREOP March 13, 2025 9:50 am Laparoscopic, Cholecystectomy with IOC J une 2024 7:47am SVT,VT March 15, 2025 10:2 6am SVT,VT March 15, 2025 4:37 pm SVT,VT March 16, 2025 6:49 am SVT,VT March 16, 2025 9:27 am f/u lap rachel March 28, 2025 2:14 pm Tachycardia [facility] 03/15March 29, 2025 9:2 1am SVT,CHEST PAIN April 04, 2025 6:20a m CHECK SUTURES S/P GALLBLADDER SX April 12:50pm Reason for Visit Admit Date Body dysmorphic disorder January 19 12:24pm Depression January 19, 2025 12: 24pm Overweight January 19, 2025 12: 24pm Overweight (BMI 25.0-29.9) January 19, 2 025 12:24pm Mild intermittent asthma in adult withou t complication January 25, 2025 12:58pm Mild depression January 25, 2025 12: 58pm Immunization due January 25, 2025 12: 58pm Overweight (BMI 25.0-29.9) January 25, 2 025 12:58pm Degenerative disc disease, lumbar January 25, 2025 12:58pm Polyneuropathy January 25, 2025 12: 58pm Bilateral hip pain January 25, 2025 12: 58pm RUQ abdominal pain March 07, 2025 3:07p m RUQ abdominal pain March 15, 2025 10:2 6am S/P laparoscopic cholecystectomy March 152024 10:26am Tachycardia March 15, 2025 10:2 6am S/P cholecystectomy March 28, 2025 2:14 pm Chest pain March 29, 2025 9:21 am SVT (supraventricular tachycardia) March 29, 2025 9:21am Chief Complaint Admit Date Weight Management January 19, 2025 12: 24pm 6 M FU January 25, 2025 12: 58pm RUQ PAIN March 06, 2025 7:44a m GALLSTONES March 07, 2025 3:07p m PREOP March 13, 2025 9:50 am Laparoscopic, Cholecystectomy with IOC J une 2024 7:47am SVT,VT March 15, 2025 10:2 6am SVT,VT March 15, 2025 4:37 pm SVT,VT March 16, 2025 6:49 am SVT,VT March 16, 2025 9:27 am f/u lap rachel March 28, 2025 2:14 pm Tachycardia [facility] /March 29, 2025 9:2 1am SVT,CHEST PAIN April 04, 2025 6:20a m CHECK SUTURES S/P GALLBLADDER SX April 12:50pm HIP INJECTION April 27, 2025 1:55 pm Reason for Visit Admit Date Body dysmorphic disorder January 19 12:24pm Depression January 19, 2025 12: 24pm Overweight January 19, 2025 12: 24pm Overweight (BMI 25.0-29.9) January 19, 2 025 12:24pm Mild intermittent asthma in adult withou t complication January 25, 2025 12:58pm Mild depression January 25, 2025 12: 58pm Immunization due January 25, 2025 12: 58pm Overweight (BMI 25.0-29.9) January 25, 2 025 12:58pm Degenerative disc disease, lumbar January 25, 2025 12:58pm Polyneuropathy January 25, 2025 12: 58pm Bilateral hip pain January 25, 2025 12: 58pm RUQ abdominal pain March 07, 2025 3:07p m RUQ abdominal pain March 15, 2025 10:2 6am S/P laparoscopic cholecystectomy March 152024 10:26am Tachycardia March 15, 2025 10:2 6am S/P cholecystectomy March 28, 2025 2:14 pm Chest pain March 29, 2025 9:21 am SVT (supraventricular tachycardia) March 29, 2025 9:21am S/P cholecystectomy April 09, 2025 12:50 pm Chief Complaint Admit Date Weight Management January 19, 2025 12: 24pm 6 M FU January 25, 2025 12: 58pm RUQ PAIN March 06, 2025 7:44a m GALLSTONES March 07, 2025 3:07p m PREOP March 13, 2025 9:50 am Laparoscopic, Cholecystectomy with IOC J une 2024 7:47am SVT,VT March 15, 2025 10:2 6am SVT,VT March 15, 2025 4:37 pm SVT,VT March 16, 2025 6:49 am SVT,VT March 16, 2025 9:27 am f/u lap rachel March 28, 2025 2:14 pm Tachycardia [facility] 03/15March 29, 2025 9:2 1am SVT,CHEST PAIN April 04, 2025 6:20a m CHECK SUTURES S/P GALLBLADDER SX April 12:50pm HIP INJECTION April 27, 2025 1:55 pm RIGHT HIP April 30, 2025 2:39 pm Room 2 April 30, 2025 2:57 pm Reason for Visit Admit Date Body dysmorphic disorder January 19 12:24pm Depression January 19, 2025 12: 24pm Overweight January 19, 2025 12: 24pm Overweight (BMI 25.0-29.9) January 19, 2 025 12:24pm Mild intermittent asthma in adult withou t complication January 25, 2025 12:58pm Mild depression January 25, 2025 12: 58pm Immunization due January 25, 2025 12: 58pm Overweight (BMI 25.0-29.9) January 25, 2 025 12:58pm Degenerative disc disease, lumbar January 25, 2025 12:58pm Polyneuropathy January 25, 2025 12: 58pm Bilateral hip pain January 25, 2025 12: 58pm RUQ abdominal pain March 07, 2025 3:07p m RUQ abdominal pain March 15, 2025 10:2 6am S/P laparoscopic cholecystectomy March 152024 10:26am Tachycardia March 15, 2025 10:2 6am S/P cholecystectomy March 28, 2025 2:14 pm Chest pain March 29, 2025 9:21 am SVT (supraventricular tachycardia) March 29, 2025 9:21am S/P cholecystectomy April 09, 2025 12:50 pm Greater trochanteric bursitis of right h ip April 27, 2025 1:55pm Reason for Visit Admit Date Body dysmorphic disorder January 19 12:24pm Depression January 19, 2025 12: 24pm Overweight January 19, 2025 12: 24pm Overweight (BMI 25.0-29.9) Luisa 18th, 2 025 12:24pm Mild intermittent asthma in adult withou t complication January 25, 2025 12:58pm Mild depression January 25, 2025 12: 58pm Immunization due January 25, 2025 12: 58pm Overweight (BMI 25.0-29.9) January 25, 2 025 12:58pm Degenerative disc disease, lumbar January 25, 2025 12:58pm Polyneuropathy January 25, 2025 12: 58pm Bilateral hip pain January 25, 2025 12: 58pm RUQ abdominal pain March 07, 2025 3:07p m RUQ abdominal pain March 15, 2025 10:2 6am S/P laparoscopic cholecystectomy March 152024 10:26am Tachycardia March 15, 2025 10:2 6am S/P cholecystectomy March 28, 2025 2:14 pm Chest pain March 29, 2025 9:21 am SVT (supraventricular tachycardia) March 29, 2025 9:21am S/P cholecystectomy April 09, 2025 12:50 pm Greater trochanteric bursitis of right h ip April 27, 2025 1:55pm Greater trochanteric bursitis of right h ip April 30, 2025 2:39pm Scoliosis of lumbar region d ue to degenerative disease of spine in adult April 30, 2025 2:39pm Chief Complaint Admit Date Weight Management January 19, 2025 12: 24pm 6 M FU January 25, 2025 12: 58pm RUQ PAIN March 06, 2025 7:44a m GALLSTONES March 07, 2025 3:07p m PREOP March 13, 2025 9:50 am Laparoscopic, Cholecystectomy with IOC J 2024 7:47am SVT,VT March 15, 2025 10:2 6am SVT,VT March 15, 2025 4:37 pm SVT,VT March 16, 2025 6:49 am SVT,VT March 16, 2025 9:27 am f/u lap rachel March 28, 2025 2:14 pm Tachycardia [facility] 03/15March 29, 2025 9:2 1am SVT,CHEST PAIN April 04, 2025 6:20a m CHECK SUTURES S/P GALLBLADDER SX April 12:50pm HIP INJECTION April 27, 2025 1:55 pm RIGHT HIP April 30, 2025 2:39 pm Room 2 April 30, 2025 2:57 pm FU *ok per SM May 01, 2025 12:3 0pm Summary Purpose Family History No Family History Records Found Advance Directives No Advanced Directives Records Found Advance Directive Response Recorded Date/ Time Living Will No July 20 10:50am Do you have a Healthcare Power of Dragline Oiler? No July 20, 2024 10:50am Advance Directive Response Recorded Date/ Time Living Will No July 20 10:50am Do you have a Healthcare Power of Dragline Oiler? No July 20, 2024 10:50am Do you have a Healthcare Power of Dragline Oiler? No March 15, 2025 11:17am Reason for Referral Specialty Diagnoses / Procedures Referred By Roger cochran Referred To Contact [facility] [place] Diagnoses Erythromelalgia (HCC) Procedures CARDIOVASCULAR MEDICINE OP FOLLOW UP APPT ORDER Rosina Aparicio MD [address] [place] [address] [facility] [id number] [place] [address] Referral ID Status Reason Start Date Expiration Date Visits Requested Visits Authorized [id number] Ref Not Required PCP Requested Referral 01/24/2025 [...] Status: Active Member Role Status Dates Dr. Rory Larson MD Family Provider Active Dr. Jill Zelaya MD Primary Care Provider Active Team Status: Inactive Member Role Status Dates Dr. Rory Pride MD Primary Care Provider, Referr ing Provider Active Dr. Jill Zelaya MD Attending Provider Active Team Status: Inactive Member Role Status Dates Dr. Rory Pride MD Primary Care Pr ovider, Attending Provider, Referring Provider Active Team Status: Inactive Member Role Status Dates Dr. Rory Pride MD Primary Care Provider Active Dr. German Corbin MD Attending Provider, Referring Provider Active Team Status: Inactive Member Role Status Dates Dr. Jill Zelaya MD Primary Care Pro vider, Attending Provider, Referring Provider Active Team Status: Inactive Member Role Status Dates Dr. Jill Zelaya MD Primary Care Provider, Attendi ng Provider Active Team Status: Inactive Member Role Status Dates Dr. Rory Pride MD Referring Provider Active Dr. Yuli [...] MAGUI BUSTAMANTE Other Provider Active Dr. 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 Jill Zelaya MD Primary Care Provider Active Start: March 15, 2025 Dr. Fernando Ontiveros MD Attending Provider Active Start: March 15, 2025 Dr. Fernando Ontiveros MD Referring Provider Active Start: March 15, 2025 Dr. Fernando Ontiveros MD Other Provider Active St art: March 15, 2025 Team Status: Inactive Member Role Status Dates Dr. Jill Zelaya MD Primary Care Provider Active Start: March 15, 2025 End: March 16, 2025 Dr. Fernando Ontiveros MD Admit Provider Active St art: March 15, 2025 End: March 16, 2025 Dr. Fernando Ontiveros MD Attending Provider Active Start: March 15, 2025 End: March 16, 2025 Dr. Fernando Ontiveros MD Referring Provider Active Start: March 15, 2025 End: March 16, 2025 Dr. Fernando Ontiveros MD Other Provider Active St art: March 15, 2025 End: March 16, 2025 Dr. Edgardo Lacy MD Other Provider Active St art: March 15, 2025 End: March 16, 2025 Team Status: Active Member Role Status Dates Dr. Jill Zelaya MD Primary Care Provider Active Start: March 15, 2025 Dr. Alma Marques MD Attending Provider Active Start: March 15, 2025 Team Status: Active Member Role Status Dates Dr. Jill Zelaya MD Primary Care Provider Active Start: March 15, 2025 Dr. Fernando Ontiveros MD Admit Provider Active St art: March 15, 2025 Dr. Fernando Ontiveros MD Referring Provider Active Start: March 15, 2025 Dr. Fernando Ontiveros MD Other Provider Active St art: March 15, 2025 Dr. Edgardo Lacy MD Other Provider Active St art: March 15, 2025 Dr. Sidney Gregg DO Attending Provider Active Start: March 15, 2025 Team Status: Active Member Role Status Dates Dr. Jill Zelaya MD Primary Care Provider Active Start: March 16, 2025 Dr. Fernando Ontiveros MD Admit Provider Active St art: March 16, 2025 Dr. Fernando Ontiveros MD Referring Provider Active Start: March 16, 2025 Dr. Fernando Ontiveros MD Other Provider Active St art: March 16, 2025 Dr. Edgardo Lacy MD Other Provider Active St art: March 16, 2025 Dr. Sidney Gregg DO Attending Provider Active Start: March 16, 2025 Team Status: Active Member Role Status Dates Dr. Jill Zelaya MD Primary Care Provider Active Start: March 16, 2025 Dr. Fernando Ontiveros MD Admit Provider Active St art: March 16, 2025 Dr. Fernando Ontiveros MD Attending Provider Active Start: March 16, 2025 Dr. Fernando Ontiveros MD Referring Provider Active Start: March 16, 2025 Dr. Fernando Ontiveros MD Other Provider Active St art: March 16, 2025 Dr. Edgardo Lacy MD Other Provider Active St art: March 16, 2025 Team Status: Active Member Role Status Dates Dr. Jill Zelaya MD Primary Care Provider Active Start: March 13, 2025 End: March 13, 2025 Dr. Edgardo Lacy MD Attending Provider Active Start: March 13, 2025 End: March 13, 2025 Dr. Fernando Ontiveros MD Referring Provider Active Start: March 13, 2025 End: March 13, 2025 Team Status: Active Member Role Status Dates Dr. Jill Zelaya MD Primary Care Provider Active Start: March 15, 2025 Dr. Fernando Ontiveros MD Admit Provider Active St art: March 15, 2025 Dr. Fernando Ontiveros MD Other Provider Active St art: March 15, 2025 Dr. Edgardo Lacy MD Other Provider Active St art: March 15, 2025 Dr. Sidney Gregg DO Attending Provider Active Start: March 15, 2025 Team Status: Inactive Member Role Status Dates Dr. Jill Zelaya MD Primary Care Provider Active Start: March 28, 2025 End: March 28, 2025 Dr. Jill Zelaya MD Referring Provider Active Start: March 28, 2025 End: March 28, 2025 Dr. Fernando Ontiveros MD Attending Provider Active Start: March 28, 2025 End: March 28, 2025 Team Status: Active Member Role Status Dates Dr. Jill Zelaya MD Primary Care Provider Active Start: March 16, 2025 Dr. Fernando Ontiveros MD Admit Provider Active St art: March 16, 2025 Dr. Fernando Ontiveros MD Other Provider Active St art: March 16, 2025 Dr. Edgardo Lacy MD Other Provider Active St art: March 16, 2025 Dr. Sidney Gregg DO Attending Provider Active Start: March 16, 2025 Team Status: Inactive Member Role Status Dates Dr. Jill Zelaya MD Primary Care Provider Active Start: March 29, 2025 End: March 29, 2025 Dr. Jill Zelaya MD Referring Provider Active Start: March 29, 2025 End: March 29, 2025 Georgette Keating PA, PA Attending Provider Active Start: March 29, 2025 End: March 29, 2025 Team Status: Active Member Role/Relationship Status Dates Dr. Jill Zelaya MD Primary Care Provider Active Team Status: Inactive Member Role/Relationship Status Dates Dr. Jill Zelaya MD Primary Care Provider Active Start: December 27, 2024 End: December 27, 2024 Dr. David David MD Attending Provider Active Start: December 27, 2024 End: December 27, 2024 Team Status: Inactive Member Role/Relationship Status Dates Dr. Jill Zelaya MD Primary Care Provider Active Start: January 19, 2025 End: January 19, 2025 Dr. Jill Zelaya MD Referring Provider Active Start: January 19, 2025 End: January 19, 2025 Dr. Yuli Ames MD Attending Provider Active Start: January 19, 2025 End: January 19, 2025 Team Status: Inactive Member Role/Relationship Status Dates Dr. Jill Zelaya MD Primary Care Provider Active Start: January 25, 2025 End: January 25, 2025 Dr. Jill Zelaya MD Attending Provider Active Start: January 25, 2025 End: January 25, 2025 Dr. Jill Zelaya MD Referring Provider Active Start: January 25, 2025 End: January 25, 2025 Team Status: Inactive Member Role/Relationship Status Dates Dr. Jill Zelaya MD Primary Care Provider Active Start: March 06, 2025 End: March 06, 2025 Dr. Fatemeh Urbina MD Attending Provider Active Start: March 06, 2025 End: March 06, 2025 Dr. Fatemeh Urbina MD Referring Provider Active Start: March 06, 2025 End: March 06, 2025 Team Status: Inactive Member Role/Relationship Status Dates Dr. Jill Zelaya MD Primary Care Provider Active Start: March 07, 2025 End: March 07, 2025 Dr. Jill Zelaya MD Referring Provider Active Start: March 07, 2025 End: March 07, 2025 Dr. Fernando Ontiveros MD Attending Provider Active Start: March 07, 2025 End: March 07, 2025 Team Status: Active Member Role/Relationship Status Dates Dr. Jill Zelaya MD Primary Care Provider Active Start: March 13, 2025 End: March 13, 2025 Dr. Edgardo Lacy MD Attending Provider Active Start: March 13, 2025 End: March 13, 2025 Dr. Fernando Ontiveros MD Referring Provider Active Start: March 13, 2025 End: March 13, 2025 Team Status: Active Member Role/Relationship Status Dates Dr. Jill Zelaya MD Primary Care Provider Active Start: March 15, 2025 Dr. Fernando Ontiveros MD Attending Provider Active Start: March 15, 2025 Dr. Fernando Ontiveros MD Referring Provider Active Start: March 15, 2025 Dr. Fernando Ontiveros MD Other Provider Active St art: March 15, 2025 Team Status: Inactive Member Role/Relationship Status Dates Dr. Jill Zelaya MD Primary Care Provider Active Start: March 15, 2025 End: March 16, 2025 Dr. Fernando Ontiveros MD Admit Provider Active St art: March 15, 2025 End: March 16, 2025 Dr. Fernando Ontiveros MD Attending Provider Active Start: March 15, 2025 End: March 16, 2025 Dr. Fernando Ontiveros MD Referring Provider Active Start: March 15, 2025 End: March 16, 2025 Dr. Fernando Ontiveros MD Other Provider Active St art: March 15, 2025 End: March 16, 2025 Dr. Edgardo Lacy MD Other Provider Active St art: March 15, 2025 End: March 16, 2025 Team Status: Active Member Role/Relationship Status Dates Dr. Jill Zelaya MD Primary Care Provider Active Start: March 15, 2025 Dr. Alma Marques MD Attending Provider Active Start: March 15, 2025 Team Status: Active Member Role/Relationship Status Dates Dr. Jill Zelaya MD Primary Care Provider Active Start: March 15, 2025 Dr. Fernando Ontiveros MD Admit Provider Active St art: March 15, 2025 Dr. Fernando Ontiveros MD Other Provider Active St art: March 15, 2025 Dr. Edgardo Lacy MD Other Provider Active St art: March 15, 2025 Dr. Sidney Gregg DO Attending Provider Active Start: March 15, 2025 Team Status: Active Member Role/Relationship Status Dates Dr. Jill Zelaya MD Primary Care Provider Active Start: March 16, 2025 Dr. Fernando Ontiveros MD Admit Provider Active St art: March 16, 2025 Dr. Fernando Ontiveros MD Other Provider Active St art: March 16, 2025 Dr. Edgardo Lacy MD Other Provider Active St art: March 16, 2025 Dr. Sidney Gregg DO Attending Provider Active Start: March 16, 2025 Team Status: Active Member Role/Relationship Status Dates Dr. Jill Zelaya MD Primary Care Provider Active Start: March 16, 2025 Dr. Fernando Ontiveros MD Admit Provider Active St art: March 16, 2025 Dr. Fernando Ontiveros MD Attending Provider Active Start: March 16, 2025 Dr. Fernando Ontiveros MD Referring Provider Active Start: March 16, 2025 Dr. Fernando Ontiveros MD Other Provider Active St art: March 16, 2025 Dr. Edgardo Lacy MD Other Provider Active St art: March 16, 2025 Team Status: Inactive Member Role/Relationship Status Dates Dr. Jill Zelaya MD Primary Care Provider Active Start: March 28, 2025 End: March 28, 2025 Dr. Jill Zelaya MD Referring Provider Active Start: March 28, 2025 End: March 28, 2025 Dr. Fernando Ontiveros MD Attending Provider Active Start: March 28, 2025 End: March 28, 2025 Team Status: Inactive Member Role/Relationship Status Dates Dr. Jill Zelaya MD Primary Care Provider Active Start: March 29, 2025 End: March 29, 2025 Dr. Jill Zelaya MD Referring Provider Active Start: March 29, 2025 End: March 29, 2025 Georgette Keating PA, PA Attending Provider Active Start: March 29, 2025 End: March 29, 2025 Team Status: Active Member Role/Relationship Status Dates Dr. Jill Zelaya MD Primary Care Provider Active Start: April 04, 2025 Georgette Keating PA, PA Attending Provider Active Start: April 04, 2025 Georgette Keating PA, PA Referring Provider Active Start: April 04, 2025 Team Status: Inactive Member Role/Relationship Status Dates Dr. Jill Zelaya MD Primary Care Provider Active Start: April 09, 2025 End: April 09, 2025 Dr. Jill Zelaya MD Referring Provider Active Start: April 09, 2025 End: April 09, 2025 Dr. Fernando Ontiveros MD Attending Provider Active Start: April 09, 2025 End: April 09, 2025 Team Status: Inactive Member Role/Relationship Status Dates Dr. Jill Zelaya MD Primary Care Provider Active Start: January 19, 2025 End: January 19, 2025 Dr. Jill Zelaya MD Referring Provider Active Start: January 19, 2025 End: January 19, 2025 Dr. Yuli Ames MD Attending Provider Active Start: January 19, 2025 End: January 19, 2025 Team Status: Inactive Member Role/Relationship Status Dates Dr. Jill Zelaya MD Primary Care Provider Active Start: January 25, 2025 End: January 25, 2025 Dr. Jill Zelaya MD Attending Provider Active Start: January 25, 2025 End: January 25, 2025 Dr. Jill Zelaya MD Referring Provider Active Start: January 25, 2025 End: January 25, 2025 Team Status: Inactive Member Role/Relationship Status Dates Dr. Jill Zelaya MD Primary Care Provider Active Start: March 06, 2025 End: March 06, 2025 Dr. Fatemeh Urbina MD Attending Provider Active Start: March 06, 2025 End: March 06, 2025 Dr. Fatemeh Urbina MD Referring Provider Active Start: March 06, 2025 End: March 06, 2025 Team Status: Inactive Member Role/Relationship Status Dates Dr. Jill Zelaya MD Primary Care Provider Active Start: March 07, 2025 End: March 07, 2025 Dr. Jill Zelaya MD Referring Provider Active Start: March 07, 2025 End: March 07, 2025 Dr. Fernando Ontiveros MD Attending Provider Active Start: March 07, 2025 End: March 07, 2025 Team Status: Active Member Role/Relationship Status Dates Dr. Jill Zelaya MD Primary Care Provider Active Start: March 13, 2025 End: March 13, 2025 Dr. Edgardo Lacy MD Attending Provider Active Start: March 13, 2025 End: March 13, 2025 Dr. Fernando Ontiveros MD Referring Provider Active Start: March 13, 2025 End: March 13, 2025 Team Status: Active Member Role/Relationship Status Dates Dr. Jill Zelaya MD Primary Care Provider Active Start: March 15, 2025 Dr. Fernando Ontiveros MD Attending Provider Active Start: March 15, 2025 Dr. Fernando Ontiveros MD Referring Provider Active Start: March 15, 2025 Dr. Fernando Ontiveros MD Other Provider Active St art: March 15, 2025 Team Status: Inactive Member Role/Relationship Status Dates Dr. Jill Zelaya MD Primary Care Provider Active Start: March 15, 2025 End: March 16, 2025 Dr. Fernando Ontiveros MD Admit Provider Active St art: March 15, 2025 End: March 16, 2025 Dr. Fernando Ontiveros MD Attending Provider Active Start: March 15, 2025 End: March 16, 2025 Dr. Fernando Ontiveros MD Referring Provider Active Start: March 15, 2025 End: March 16, 2025 Dr. Fernando Ontiveros MD Other Provider Active St art: March 15, 2025 End: March 16, 2025 Dr. Edgardo Lacy MD Other Provider Active St art: March 15, 2025 End: March 16, 2025 Team Status: Active Member Role/Relationship Status Dates Dr. Jill Zelaya MD Primary Care Provider Active Start: March 15, 2025 Dr. Alma Marques MD Attending Provider Active Start: March 15, 2025 Team Status: Active Member Role/Relationship Status Dates Dr. Jill Zelaya MD Primary Care Provider Active Start: March 15, 2025 Dr. Fernando Ontiveros MD Admit Provider Active St art: March 15, 2025 Dr. Fernando Ontiveros MD Other Provider Active St art: March 15, 2025 Dr. Edgardo Lacy MD Other Provider Active St art: March 15, 2025 Dr. Sidney Gregg DO Attending Provider Active Start: March 15, 2025 Team Status: Active Member Role/Relationship Status Dates Dr. Jill Zelaya MD Primary Care Provider Active Start: March 16, 2025 Dr. Fernando Ontiveros MD Admit Provider Active St art: March 16, 2025 Dr. Fernando Ontiveros MD Other Provider Active St art: March 16, 2025 Dr. Edgardo Lacy MD Other Provider Active St art: March 16, 2025 Dr. Sidney Gregg DO Attending Provider Active Start: March 16, 2025 Team Status: Active Member Role/Relationship Status Dates Dr. Jill Zelaya MD Primary Care Provider Active Start: March 16, 2025 Dr. Fernando Ontiveros MD Admit Provider Active St art: March 16, 2025 Dr. Fernando Ontiveros MD Attending Provider Active Start: March 16, 2025 Dr. Fernando Ontiveros MD Referring Provider Active Start: March 16, 2025 Dr. Fernando Ontiveros MD Other Provider Active St art: March 16, 2025 Dr. Edgardo Lacy MD Other Provider Active St art: March 16, 2025 Team Status: Inactive Member Role/Relationship Status Dates Dr. Jill Zelaya MD Primary Care Provider Active Start: March 28, 2025 End: March 28, 2025 Dr. Jill Zelaya MD Referring Provider Active Start: March 28, 2025 End: March 28, 2025 Dr. Fernando Ontiveros MD Attending Provider Active Start: March 28, 2025 End: March 28, 2025 Team Status: Inactive Member Role/Relationship Status Dates Dr. Jill Zelaya MD Primary Care Provider Active Start: March 29, 2025 End: March 29, 2025 Dr. Jill Zelaya MD Referring Provider Active Start: March 29, 2025 End: March 29, 2025 Georgette Keating PA, PA Attending Provider Active Start: March 29, 2025 End: March 29, 2025 Team Status: Active Member Role/Relationship Status Dates Dr. Jill Zelaya MD Primary Care Provider Active Start: April 04, 2025 Georgette Keating PA, PA Attending Provider Active Start: April 04, 2025 Georgette Keating PA, PA Referring Provider Active Start: April 04, 2025 Team Status: Inactive Member Role/Relationship Status Dates Dr. Jill Zelaya MD Primary Care Provider Active Start: April 09, 2025 End: April 09, 2025 Dr. Jill Zelaya MD Referring Provider Active Start: April 09, 2025 End: April 09, 2025 Dr. Fernando Ontiveros MD Attending Provider Active Start: April 09, 2025 End: April 09, 2025 Team Status: Inactive Member Role/Relationship Status Dates Dr. Jill Zelaya MD Primary Care Provider Active Start: April 27, 2025 End: April 27, 2025 Dr. Jill Zelaya MD Referring Provider Active Start: April 27, 2025 End: April 27, 2025 DEANNA Riley Attending Provider Active St art: April 27, 2025 End: April 27, 2025 Team Status: Active Member Role/Relationship Status Dates Dr. Jill Zelaya MD Primary Care Provider Active Start: April 30, 2025 Dr. Jill Zelaya MD Referring Provider Active Start: April 30, 2025 Dr. Billy Olivier DO Attending Provider Active Start: April 30, 2025 Team Status: Inactive Member Role/Relationship Status Dates Dr. Jill Zelaya MD Primary Care Provider Active Start: April 30, 2025 End: April 30, 2025 Dr. Almas Poole MD Attending Provider Active S tart: April 30, 2025 End: April 30, 2025 Team Status: Inactive Member Role/Relationship Status Dates Dr. Jill Zelaya MD Primary Care Provider Active Start: April 30, 2025 End: April 30, 2025 Dr. Jill Zelaya MD Referring Provider Active Start: April 30, 2025 End: April 30, 2025 Dr. Billy Olivier DO Attending Provider Active Start: April 30, 2025 End: April 30, 2025 Team Status: Inactive Member Role/Relationship Status Dates Dr. Jill Zelaya MD Primary Care Provider Active Start: May 01, 2025 End: May 01, 2025 Dr. Jill Zelaya MD Referring Provider Active Start: May 01, 2025 End: May 01, 2025 Dr. Yuli Ames MD Attending Provider Active Start: May 01, 2025 End: May 01, 2025 Source Comments (unrecognize d section and content) In the event this informatio n is protected by the Federal Confidentiality of Alcohol and Drug Abuse Patient Records regulations: The Federal rules restrict any use of the information to criminally investigate or prosecute any alcohol or drug abuse patient.[facility] the event this information is protected by the Federal Confidentiality of Alcohol and Drug Abuse Patient Records regulations: The Federal rules restrict any use of the information to criminally investigate or prosecute any alcohol or drug abuse patient.[facility] the event this information is protected by the Federal Confidentiality of Alcohol and Drug Abuse Patient Records regulations: The Federal rules restrict any use of the information to criminally investigate or prosecute any alcohol or drug abuse patient.[facility] Reason for Visit (unrecogniz ed section and content) Reason Comments Consult Specialty Diagnoses / Procedures Referred By Roger t Referred To Contact Vascular Medicine / VASCULAR MEDICINE Diagnoses Erythromelalgia Procedures NEW/CON PATIENT Self Rory Diez MD [address] [facility] [id number] [place] [address] Referral ID Status Reason Start Date Expiration Date Visits Requested Visits Authorized [id number] Closed Financial Clearance Required - OON Payor OON Notification Letter Clearance Not Met -Financial Clearance Bypassed 03/05/2023 06/03/2023 1 1 Reason Comments Consult Erythromelalgia Reason Comments Established Patient INFORMATION SOURCE (unrecogn ized section and content) DATE CREATED AUTHOR 03/16/2023 [facility] DATE CREATED AUTHOR AUTHOR'S ORGANIZ ATION 07/28/2025 [facility] DATE CREATED AUTHOR AUTHOR'S ORGANIZ ATION 08/04/2025 [facility] FOR RECORDS PERTAINING TO PATIENTS WHO ARE [...] BE BASED ON THE PRIMARY CLINICAL RECORDS. [facility] [employer] [facility]. provides no warranty or guarantee of the accuracy or completeness of information in this document.
[2025-08-11 18:45] VITALS: BP 106/63; PULSE 91; RESP 18; O2SAT 100
[2025-08-11] MEDS: 0.9% Normal Saline (1000mL) 1,000 ML 999 ML IV (18:47)
[2025-08-11 18:48] LABS: Anion Gap 12 (5-15); BUN 21 mg/dL (4-19); BUN/Creat Ratio 15.2 RATIO (10-20); Calcium,Total 9.0 mg/dL (7.6-11.0); Carbon Dioxide 23.6 mmol/L (21.0-32.0); Chloride 103 mmol/L (98-108); Estimated Creatinine Clearance 53.97 ml/min (50-250); Glucose 108 mg/dL (70-99); Magnesium 2.2 mg/dL (1.5-2.2); Potassium 3.5 mmol/L (3.3-5.1)
--- NOTE | 2025-08-11 18:58 | EX.ED.DYSGE1 ---
HPI History of Present Illness Chief Complaint: Palpitations Informant: patient and spouse/S.O. Narrative Narrative: Patient is a 59-year-old female with past medical history of IBS as well as depression and SVT. She states she is on metoprolol daily for it. She states she has been under a great deal of stress recently as she has been having to clean out her mother's house after she passed. She states that today she was working and she would feel intermittent bouts of palpitations like her heart was racing. She states it only last for a few seconds to a few minutes and then resolve. However on the way home the symptoms return and they have not stopped and with the persistent palpitations she presents for evaluation. She states that there has been no excessive stimulant use or illicit drug use. [facility] Medical History (Updated 08/11/25 @ 23:[address] John Denis, ) SVT (supraventricular tachycardia) Anxiety History of IBS History of stress test RUQ abdominal pain Wears glasses History of steroid therapy Back pain Non-smoker Colitis Leg cramps History of pain when walking History of edema Acute diarrhea Neuropathy of right foot Peripheral neuropathy Erythromelalgia Scoliosis Degenerative disc disease Depression Home Medications ?Medication ?Instructions ?Recorded ?Last Taken ?Type multivitamin 1 tab PO DAILY 06/17/22 03/14/25 History ascorbate calcium (vitamin C) 500 500 mg PO DAILY 09/24/22 03/14/25 History mg tablet cholecalciferol (vitamin D3) 125 125 mcg PO DAILY 09/24/22 03/14/25 History mcg (5,000 unit) tablet flaxseed oil 1,000 mg capsule 1,000 mg PO DAILY 09/24/22 03/14/25 History budesonide-formoterol HFA 160 2 puff inhalation .Q4-6 PRN 11/05/23 Unknown Rx mcg-4.5 mcg/actuation aerosol shortness of breath or wheezing inhaler (Symbicort) #10.2 grams furosemide 20 mg tablet 20 mg PO BID #60 tabs 12/07/24 03/14/25 Rx lidocaine-prilocaine 2.5 %-2.5 % 1 g topical .QID PRN pain #60 grams 12/07/24 Unknown Rx topical cream cetirizine 10 mg tablet (24Hour 10 mg PO DAILY PRN allergy symptoms 03/09/25 03/14/25 History Allergy) potassium chloride 10 mEq 10 meq PO QHS 03/09/25 03/14/25 History tablet,extended release metoprolol succinate 25 mg 25 mg PO DAILY #90 tabs 04/11/25 Unknown Rx tablet,extended release 24 hr bupropion HCl 150 mg tablet,12 hr 150 mg PO BID #60 ea 05/01/25 Unknown Rx sustained-release duloxetine 60 mg capsule,delayed 60 mg PO QDAY #30 caps 05/01/25 Unknown Rx release naltrexone 50 mg tablet 25 mg (1/2 x 50 mg) PO .bid with 05/01/25 Unknown Rx meals #30 tabs [id number]-nloakttqyovjy-[id number] 1 cap PO Q6H PRN pain #30 caps 05/30/25 Unknown Rx 50 mg-300 mg-40 mg capsule (Fioricet) estradiol 1 mg tablet (Estrace) 0.5 mg PO DAILY 07/26/25 Unknown History baclofen 10 mg tablet 10 mg PO QDAY PRN muscle spasm #30 07/31/25 Unknown Rx tabs Allergy/AdvReac Type Severity Reaction Status Date / Time Sulfa (Sulfonamide Allergy Mild rash Verified 08/11/25 18:07 Antibiotics) acetaminophen (From Vicodin) AdvReac Intermediate Other Verified 08/11/25 18:07 hydrocodone (From Vicodin) AdvReac Intermediate Other Verified 08/11/25 18:07 Family History Other Adopted Surgical History History of cataract surgery S/P cholecystectomy Hx of colonoscopy History of surgical procedure H/O tubal ligation S/P laparoscopic assisted vaginal hysterectomy (LAVH) delivery delivered Social History (Updated 07/26/25 @ 13:[address] Aileen Zelaya MD) adopted: Yes household members: spouse current occupational status: employed current occupation: [place] [employer] Smoking Status: Never smoker Electronic Cigarette Use: not used alcohol intake: current alcohol intake frequency: holidays/special occasions only details: social substance use type: does not use caffeine: Yes what type of physical activity do you participate in: none seatbelt use: always do you feel safe at home: Yes additional social history: Christin RUBIO ROS ED Constitutional Constitutional ED: Denies chills or fever(s) Eyes Eyes: Denies blurry vision or change in vision ENT ENT ED: Denies sore throat Cardiovascular Cardiovascular: Reports palpitations and racing heartbeat; Denies chest pain Respiratory/Chest Respiratory/Chest: Denies cough or dyspnea Gastrointestinal Gastrointestinal: Denies abdominal pain, diarrhea, nausea or vomiting Musculoskeletal Musculoskeletal: Denies myalgias Integumentary Denies rash Neurologic Neurologic: Denies headache(s) Hematologic/Lymphatic Hematologic/Lymphatic: Denies easy bleeding or easy bruising EXAM Physical Exam Const Vital Signs: 08/11/25 18:05 08/11/25 18:10 08/11/25 18:11 Temperature 98.1 F Temperature Source Oral Pulse Rate 232 H 105 H Respiratory Rate 28 H 27 H Respiratory Effort Normal Non-Labored Blood Pressure 84/56 L 124/78 H Blood Pressure Mean 65 93 Pulse Ox 98 100 Oxygen Delivery Method Room Air Room Air 08/11/25 18:45 08/11/25 19:15 Temperature 98.0 F Temperature Source Pulse Rate 91 101 H Respiratory Rate 18 20 H Respiratory Effort Blood Pressure 106/63 116/76 Blood Pressure Mean 77 89 Pulse Ox 100 99 Oxygen Delivery Method Room Air Positive well nourished and well developed General Appearance ED: well developed; Negative for pallor HEENT HEENT Narrative: Normocephalic atraumatic Eyes PERRL and EOMs intact bilaterally Neck supple and no JVD Resp normal respiratory effort and clear to auscultation bilaterally Cardio regular rhythm Rate: tachycardic and other Other Details: Tachycardic rate with regular rhythm Radial and carotid pulses are equal and symmetric No carotid bruit noted GI normal to inspection, nondistended, normoactive bowel sounds, non-tender, non-distended and no masses Auscultation: normoactive bowel sounds Palpation: soft Extremity normal to inspection Extremity Narrative: No asymmetric edema no pitting edema negative Homans' sign bilaterally Neuro oriented x3, CN's II-XII intact bilaterally and no sensory deficits noted Sensorium / Orientation: alert Motor Exam: strength 5/5 throughout Psych mental status grossly normal Skin no rashes or lesions noted General Skin Exam: Negative for jaundice or pallor MDM MDM MDM Narrative Medical decision making narrative: Patient arrived to the ER and supraventricular tachycardia. Her blood pressure was soft but she is awake and alert with normal neurologic exam and no respiratory distress. Patient also has a past medical history of this. She denies any excessive stimulant use or illicit drug use which could be an external cause. In order to check for reversible causes such as acute blood loss anemia acute kidney injury thyroid dysfunction or Yaima abnormality basic blood work was ordered. The patient is EKG is consistent with SVT and as she is awake and alert I feel no need for synchronized cardioversion. She was initially given IV fluids and 6 mg of adenosine. After receiving adenosine she had resolution of the SVT and went into sinus rhythm. She was watched in the ER while labs are pending and she had no return of the arrhythmia. Moreover her labs revealed no clinically significant finding. Therefore this time with resolution of the SVT stable vitals and labs showing no clinically significant abnormalities there is no need for further intervention and she is otherwise safe for discharge History & Record Review Discussion w/independent historian: Patient and Significant other Lab Data Attestation: I reviewed the patient's lab results. Labs: Laboratory Results - last 24 hr 08/11/25 18:08 WBC 11.1 H RBC 4.39 Hgb 14.5 Hct 41.0 MCV 93.4 MCH 33.0 H MCHC 35.4 RDW Std Deviation 43.9 RDW Coeff of Jemal 12.7 Plt Count 295 MPV 8.9 Immature Gran % (Auto) 0.400 Neut % (Auto) 70.2 H Lymph % (Auto) 19.2 Beaver % (Auto) 5.8 Eos % (Auto) 3.6 Baso % (Auto) 0.8 Absolute Neuts (auto) 7.8 H Absolute Lymphs (auto) 2.14 Nucleated RBC % 0 Sodium 138 Potassium 3.5 Chloride 103 Carbon Dioxide 23.6 Anion Gap 12 BUN 21 H Creatinine 1.35 H Estim Creat Clear Calc 53.97 Est GFR (MDRD) Non-Af 45 L BUN/Creatinine Ratio 15.2 Glucose 108 H Calcium 9.0 Magnesium 2.2 TSH 2.720 Discharge Plan Triage Chief Complaint: Palpitations ED Provider: John Denis Dx/Rx/DC Orders Clinical Impression: SVT (supraventricular tachycardia), Depression, History of IBS Instructions: ED Understanding Supraventricular Tachycardia (SVT) Prescriptions: No Action multivitamin Tablet 1 tab PO DAILY flaxseed oil 1,000 mg capsule 1,000 mg PO DAILY Rx Instructions: administer with a meal cholecalciferol (vitamin D3) 125 mcg (5,000 unit) tablet 125 mcg PO DAILY ascorbate calcium (vitamin C) 500 mg tablet 500 mg PO DAILY budesonide-formoterol [Symbicort] 160-4.5 mcg/actuation HFA aerosol inhaler 2 puff inhalation .Q4-6 PRN (Reason: shortness of breath or wheezing) Qty: 10.2 1RF furosemide 20 mg tablet 20 mg PO BID Qty: 60 7RF lidocaine-prilocaine 2.5-2.5 % cream 1 g topical .QID PRN (Reason: pain) Qty: 60 7RF Rx Instructions: Dispense two 30 gm tubes per month. estradiol [Estrace] 1 mg tablet 0.5 mg PO DAILY naltrexone 50 mg tablet 25 mg PO .bid with meals Qty: 30 1RF Rx Instructions: start with 1/2 tab in am x 1-2 weeks then take 1/2 tab in am and pm with high protein meal. do not take with alcohol duloxetine 60 mg capsule,delayed release(DR/EC) 60 mg PO QDAY Qty: 30 12RF bupropion HCl 150 mg tablet sustained-release 12 hr 150 mg PO BID Qty: 60 6RF cetirizine [24Hour Allergy] 10 mg tablet 10 mg PO DAILY PRN (Reason: allergy symptoms) potassium chloride 10 mEq tablet extended release 10 meq PO QHS metoprolol succinate 25 mg tablet extended release 24 hr 25 mg PO DAILY Qty: 90 3RF gouwhtshgp-axhesqcpcdniv-pkbo [Fioricet] 50-300-40 mg capsule 1 cap PO Q6H PRN (Reason: pain) Qty: 30 0RF baclofen 10 mg tablet 10 mg PO QDAY PRN (Reason: muscle spasm) Qty: 30 1RF Rx Instructions: TAKE 1 TABLET BY MOUTH NEEDED FOR PAIN daily; Primary Care Provider: Aileen Zelaya Referrals: Aileen Zelaya MD [Primary Care Provider, Internal Medicine] Edgardo Lacy MD [Med Staff - Active Staff, Cardiology] Activity Restrictions/Additional Instructions: Please contact your heart doctor and inform them of your bout of SVT today. They may want to adjust your home medication. Keep yourself well-hydrated as your kidney function was slightly elevated and return to the ER should you have any further concern Print Language: German Disposition Disposition: Home, Self Care Discharge Date/Time: 08/11/25 19:22
[2025-08-11 19:15] VITALS: BP 116/76; PULSE 101; RESP 20; TEMP 36.7; O2SAT 99
== END 2025-08-11 19:22 | disposition home or self-care (01) ==
PROVIDERS: Emergency Provider Emergency Medicine; PCP Internal Medicine; Visit Provider Emergency Medicine
DX: I47.10 Supraventricular tachycardia, unspecified (principal); K58.9 Irritable bowel syndrome, unspecified; F32.A Depression, unspecified; G62.9 Polyneuropathy, unspecified; F41.9 Anxiety disorder, unspecified; Z63.4 Disappearance and death of family member; Z79.899 Other long term (current) drug therapy
CPT/HCPCS: 80048; 83735; 84443; 85025; 93005; 96361; 96374; 99283; A4216; J0153